=== PATIENT | male | born 1960 | race Caucasian/White ===

== ENCOUNTER 2019-04-18 14:53 | Emergency (ER) | payer SELFPAY ==
[2019-04-18] VITALS (61 sets, daily range): BP systolic 101–135; BP diastolic 51–86; PULSE 60–121; RESP 11–37; TEMP 37; O2SAT 89–97
--- NOTE | 2019-04-18 15:00 | DI.CT_ITS ---
EXAM: CT CHEST/ABD/PEL W CLINICAL HISTORY: vomiting, wretching, blood, diffuse abdominal pain TECHNIQUE: Post IV contrast. Without oral contrast. COMPARISON: No exams were available for comparison FINDINGS: Chest CT: Dependent changes are seen at the lung bases. No infiltrates, pleural or pericardial effu sions are seen. No masses or adenopathy are identified. Coronary artery calcifications and aortic c alcifications are seen. Abdomen and pelvic CT: The liver, spleen, adrenals and kidneys are as well as gallbladder are unremar kable. There is dilatation of the pancreatic duct. There are calcifications in the head of the panc reas. There is some atrophy of the tail of the pancreas. No focal mass is visible. No surrounding inflammatory changes are seen. No adenopathy is seen There are mildly dilated loops of jejunum in the left upper quadrant without definite transition poin t. The appendix appears normal. There is moderate to increased quantity of stool in the colon. Div erticulosis is noted of the descending and sigmoid colon. There is no evidence of diverticulitis. T he urinary bladder is markedly distended. The prostate is mildly enlarged. Bladder mass or bladder calculi are seen. The abdominal aorta and branch vessels show severe atherosclerotic changes. Degen erative changes are seen throughout the spine. No compression fractures are identified. There is a l ow-density collection with some peripheral enhancement seen in the right gluteus hailey muscle. Fin dings could represent an intramuscular abscess. It measures 5.5 x 2 cm. IMPRESSION: 1. Question of an area of fluid collection versus abscess in the right gluteus hailey muscle. 2. Dilatation of the pancreatic duct. No visible pancreatic mass. 3. Mild nonspecific dilatation of the proximal small bowel.
[2019-04-18] MEDS: Normal Saline 1,000 ML 1000 ML IV (15:16)
[2019-04-18 15:21] LABS: Abs Immature Grans 0.01 k/cumm (0.0-0.09); Absolute Basophil Count 0.04 k/cumm (0.0-0.2); Absolute Lymphocyte Count 2.51 k/cumm (1.2-3.4); Absolute Monocyte Count 0.52 k/cumm (0.11-0.7); Absolute Neutrophil Count 2.18 k/cumm (1.2-6.7); Basophils % 0.7; Eosinophils % 1.9; HCT 38.1 % (40.0-50.0); HGB 12.9 g/dL (13.5-17.5); Immature Grans % 0.2 %; Lymphocytes % 46.8; Mean Corp. HGB Concentration 33.9 g/dL (32.0-36.0); Mean Corpuscular Hemoglobin 31.9 pg (27.0-33.0); Mean Corpuscular Volume 94.3 fL (80-95); Mean Platelet Volume 8.8 fL (8.0-11.0); Monocytes % 9.7; Neutrophils % 40.7; Platelet Count 319 x1000/uL (130-400); RBC 4.04 m/cumm (4.50-6.00); RBC Distribution Width 14.6 % (11.8-14.1); White Blood Cell Count 5.36 k/cumm (4.4-10.8)
[2019-04-18] MEDS: Ondansetron 4 MG/2 ML VIAL IVP (15:26)
--- NOTE | 2019-04-18 15:28 | ED.GENADUL_ITS ---
Discharge Plan Disposition Patient Disposition: [facility] Condition: Stable Discharge Details Chief Complaint: GenMedical Clinical Impression: Acute on chronic pancreatitis, Abdominal distension, Vomiting, Abdominal pain Primary Care Provider: None,None ED Provider: Fidel Smith Medical Decision Making This is a 58-year-old male who is new to the area, who presents today with multiple complaints, chief among them 4 days of epigastric pain with vomiting and small speckles of blood, in conjunction with chest pain left-sided arm pain which is been present for 4 days and is unchanged. Not exertionally related. 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 Last drink was 3-1/2 hours ago. Patient does admit to occasional loose stool. Chest pain is described as a burning pressure-like sensation just below his xiphoid process. No tearing or ripping sensation. He pain radiates to his left arm. He states that the symptoms are notably dissimilar from when he had his previous myocardial infarctions. He denies any any numbness, tingling, weakness, melena, acholic stool, headache or vision changes. He denies any recent fall or trauma. He does admit to intermittent crack cocaine use. Last time of use was 3 days ago. No other complaints at this time. No other modifying factors. He states that he is not currently taking any medications at this time. He is otherwise a slightly poor/distracted historian. Physical exam shows diffuse abdominal tenderness primarily in the epigastric region. No bruising. EKG shows no evidence of STEMI. Lipase is normal, renal function stable, electrolytes unremarkable. White count unremarkable. Differential is broad but includes gallbladder pathology, early pancreatitis from chronic alcoholism, obstruction, less likely atypical cardiac etiology. We will rehydrate, monitor closely, get a CT scan of the abdomen pelvis and evaluate for unlikely cardiac etiology. 6 PM Patient now states that he does have history of pancreatic cancer in the past versus potential chronic pancreatitis. He also notes that he did have a stent placed in [place] or [place] 1 year ago, and then 6 months later had it removed. 8 PM Laboratory work-up is returned relatively unremarkable, no significant white count, or left shift. Electrolytes are normal. No significant anion gap. Calcium slightly low at 8.2, transaminases stable aside for slight elevation in AST at 53. Lipase upper limits of normal at 328. Urinalysis unremarkable. Ethyl alcohol 211. CT scans results demonstrate evidence of dilated pancreatic duct at 10 mm, uncertain of chronicity. There is also evidence of notable chronic pancreatitis, and the head of the pancreas is also notably lobulated and enlarged, concerning for pancreatic carcinoma, which the patient states that he now has a history of. However there is no evidence of metastases anywhere else, so new malignancy seems potentially less likely. CT also shows evidence of notable dilatation of the proximal jejunum and large amounts of grass in the transverse colon which could be a manifestation of acute pancreatitis versus potential mild ileus. Patient is still having notable difficulty tolerating p.o., however his vomiting has resolved with antiemetic medication. Because of the patient's chronic narcotic use his opioid sensitivity is notable, he has been requiring Dilaudid for pain control. With the patient signs and symptoms, we did contact the surgeon Dr. Ramirez discussed the case with her. She too is uncertain of the potential chronicity of the symptoms, however with lipase only at the upper limits of normal, in conjunction with relatively unremarkable tra nsaminases and bilirubin she feels that there is no indication for emergent stenting at this time. No evidence of an acute surgical emergency. With the patient's nausea, continued abdominal pain, I do feel that he would benefit from admission. Unfortunately we we have no current beds available. However local facilities are also unable to facilitate transfer including [facility] and [facility]. We did contact [facility] I discussed the case with Dr. Aguiar, he agrees with the assessment and plan. The patient will be transferred by [facility] for further management. Also of note patient's troponins are normal, signs and symptoms appear clinically inconsistent with ACS. His [place] score remains low at this time, vital signs have improved with his fluids. I see no evidence of significant withdrawal at this time. I have extensively reviewed the treatment plan with the patient. I have addressed all patient concerns at this time. I have also discussed the plan with the admitting physician and they agree with the current assessment and plan and have agreed to assume responsibility for the patient. All parties demonstrate verbal understanding and agreement with our assessment and plan at this time. At time of transfer the patient was reassessed and continued to demonstrate current medical stability. No signs of acute respiratory distress requiring intubation, hemodynamic instability requiring pressor support, or rapidly declining mental status. The patient is stable for transport. EKG 15: 10 Rate 107, machine interpreted as atrial flutter, I believe this is incorrect, sinus rhythm, no significant ST elevations or depressions, intervals unremarkable. No evidence of STEMI. No other abnormalities. FINDINGS: Lungs: Moderate amount of ground-glass opacity predominantly in the dependent lower lobes. Pleural space: Unremarkable. No pneumothorax. No pleural effusion. Heart: Heart is not enlarged and there is no pericardial effusion. Prominent calcification of the left anterior descending coronary artery as well as the left circumflex artery. 2. Moderately severe atherosclerosis including prominent coronary artery calcification. Mediastinum: Multiple calcified mediastinal lymph nodes predominantly in the right hilum and right side of the superior mediastinum. Aorta: Moderately severe diffuse atherosclerosis of the thoracic aorta without evidence of aneurysmal dilatation. Lymph nodes: Unremarkable. No enlarged lymph nodes. Bones/joints: Unremarkable. No acute fracture. Soft tissues: Unremarkable. Other findings: 3. Evidence of previous granulomatous disease. IMPRESSION: Moderate atelectasis and/or scarring at the lung bases. FINDINGS: Liver: Normal. No mass. Gallbladder and bile ducts: Normal. No calcified stones. No ductal dilation. Pancreas: There are multiple coarse calcifications in the inferior aspect of the head of the pancreas extending into the uncinate process. Pancreatic duct the is severely dilated at the junction of the head in the body measuring up to 10 mm in diameter. The duct tapers the towards the pale of the pancreas. There is no identifiable inflammation around the pancreas. The head of the pancreas is somewhat the lobulated and enlarged. Spleen: Normal. No splenomegaly. Adrenals: Normal. No mass. Kidneys and ureters: Normal. No hydronephrosis. Stomach and bowel: Stomach is moderately distended with a small air-fluid level. There is a moderate fecal burden throughout the colon. There is a prominent amount of gas in the transverse colon. No definite inflammation is seen around the colon. Proximal jejunum has several loops of fluid filled mildly dilated loops dilated to 4 cm. Or distal jejunum and ileum is of much smaller caliber. Transit is in July is not clearly defined. Appendix: No evidence of appendicitis. Intraperitoneal space: Unremarkable. No free air. No significant fluid collection. Vasculature: Severe diffuse atherosclerosis. Lymph nodes: Unremarkable. No enlarged lymph nodes. Bladder: The urinary bladder is severely distended the measures 13 x 11.9 x 8.3 cm corresponding to a volume of roughly 645 cubic cm. Reproductive: Prostate gland is mildly enlarged. Bones/joints: At L5-S1 there is a moderate disc bulge and mild facet hypertrophy moderately compressing the thecal sac and mildly narrowing both neural foramina worse on the right side. Soft tissues: Unremarkable. IMPRESSION: 1. No pancreatic stent is identified. The pancreatic duct is dilated to 10 mm. There is calcification consistent with chronic pancreatitis. The head of the pancreas is also lobulated somewhat enlarged and is probably a manifestation of the patient's the known pancreatic carcinoma. There is no evidence of metastatic disease to the liver. 2. Dilated the proximal jejunum and a large amount of gas in the transverse colon the could be a manifestation of acute pancreatitis although I do not see any inflammation around the pancreas to suggest that. Dictated and Authenticated by: Brett Strauss MD. Ordering:JACIEL Parra MD HPI General Date/Time Provider Initiated Documentation: 04/18/19 14:54 . HPI Narrative: This is a 58-year-old male who is new to the area, who presents today with multiple complaints, chief among them 4 days of epigastric pain with vomiting and small speckles of blood, in conjunction with chest pain left-sided arm pain which is been present for 4 days and is unchanged. Not exertionally related. 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 Last drink was 3-1/2 hours ago. Patient does admit to occasional loose stool. Chest pain is described as a burning pressure-like sensation just below his xiphoid process. No tearing or ripping sensation. He pain radiates to his left arm. He states that the symptoms are notably dissimilar from when he had his previous myocardial infarctions. He denies any any numbness, tingling, weakness, melena, acholic stool, headache or vision changes. He denies any recent fall or trauma. He does admit to intermittent crack cocaine use. Last time of use was 3 days ago. No other complaints at this time. No other modifying factors. He states that he is not currently taking any medications at this time. He is otherwise a slightly poor/distracted historian. Related Data Allergies Allergy/AdvReac Type Severity Reaction Status Date / Time Penicillins Allergy Unverified 04/18/19 15:16 General Stated Complaint: GenMedical DMITRI: 3 Review of Systems All systems reviewed & are unremarkable except as noted in HPI and below PFSH Social History Smoking/Tobacco Use Status: Current every day Alcohol Intake: current Alcohol Intake frequency: 3 or more drinks per day Drug use: Occasionally Substance use type: crack/cocaine Additional Social history: homeless Exam Narrative Exam Narrative: 1.Const: Well-nourished, Well-developed, appearing stated age 2.Eyes: PERRL, no conjunctival injection, and symmetrical lids. 3.ENT: Atraumatic external nose and ears. Moist MM. Neck: Symmetric, trachea midline, No thyromegaly. 4.CVS: +S1/S2, No murmurs or gallops. Peripheral pulses 2+ and equal in all extremities. Brisk capillary refill in all extremities. Radial pulses symmetric bilaterally. 5.RESP: Unlabored respiratory effort. Clear to auscultation bilaterally. No wheezes rales or rhonchi. No reproducible tenderness on palpation of the chest. 6.GI: Soft, mild abdominal distention, diffuse tenderness throughout, primarily in the epigastric region. Minimal hepatomegaly. No bruising around the umbilicus or flanks. No CVA tenderness. 7.MSK: Normocephalic/Atraumatic, Extremities w/o deformity or ttp No cyanosis or clubbing, Normal movement of all extremities 8.Skin: Warm, Dry. No rashes or lesions. 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 Sensation grossly intact, no focal neurologic deficits. 10.Psych: (AAO) x3. Appropriate mood and affect Course Vital Signs Vital signs: Vital Signs Temperature 37 C 04/18/19 14:56 Pulse 121 H 04/18/19 14:56 Respiratory Rate 20 04/18/19 14:56 Blood Pressure 135/86 04/18/19 14:56 Pulse Oximetry 96 04/18/19 14:56 Temperature 37 C 04/18/19 14:56 Temperature Source Temporal Artery Scan 04/18/19 14:56 Pulse 121 H 04/18/19 14:56 Respiratory Rate 20 04/18/19 14:56 Respiratory Effort Non-Labored 04/18/19 15:01 Blood Pressure 135/86 04/18/19 14:56 Blood Pressure Position Sitting 04/18/19 14:56 Pulse Oximetry 96 04/18/19 14:56 Oxygen Delivery Method Room Air 04/18/19 14:56 Oxygen Flow Rate 0 04/18/19 14:56 Lab/Test Results Lab/Test Results: Laboratory Tests Range/Units 04/18/19 15:15 WBC (4.4-10.8) k/cumm 5.36 RBC (4.50-6.00) m/cumm 4.04 L Hgb (13.5-17.5) g/dL 12.9 L Hct (40.0-50.0) % 38.1 L MCV (80-95) fL 94.3 MCH (27.0-33.0) pg 31.9 MCHC (32.0-36.0) g/dL 33.9 RDW (11.8-14.1) % 14.6 H Plt Count (130-400) x1000/uL 319 MPV (8.0-11.0) fL 8.8 Immature Gran % % 0.2 Neutrophils % 40.7 Lymphocytes % 46.8 Monocytes % 9.7 Eosinophils % 1.9 Basophils % 0.7 Absolute Neutrophils (1.2-6.7) k/cumm 2.18 Absolute Lymphocytes (1.2-3.4) k/cumm 2.51 Absolute Monocytes (0.11-0.7) k/cumm 0.52 Absolute Eosinophils (0.0-0.7) k/cumm 0.10 Absolute Basophils (0.0-0.2) k/cumm 0.04
[2019-04-18 15:34] LABS: ALT 43 U/L (16-63); AST 53 U/L (15-37); Albumin 3.7 g/dL (3.4-5.0); Alkaline Phosphatase 86 U/L (46-116); Anion Gap 11.3 mmol/L (3-11); BUN 16 mg/dL (7-18); Bilirubin, Total 0.2 mg/dL (0.2-1.0); CO2 23.7 mmol/L (21.0-32.0); CREATININE 0.97 mg/dL (0.70-1.30); Calcium 8.2 mg/dL (8.5-10.1); Chloride 105 mmol/L (98-107); ETHANOL BLOOD 211.4 mg/dL (<3); Glucose 125 mg/dL (74-106); Potassium 4.2 mmol/L (3.5-5.1); Sodium 140 mmol/L (136-145); Total Protein 7.5 g/dL (6.4-8.2)
[2019-04-18 15:41] LABS: Lipase 328 U/L (73-393)
[2019-04-18 15:42] LABS: Troponin I < 0.05 ng/Ml (<0.06)
[2019-04-18 15:43] LABS: PTT Activated 25.4 sec (21.0-31.4); Prothrombin Time 9.7 sec (9.3-11.0)
[2019-04-18] MEDS: Normal Saline - Diluent 50 ML VIAL IV (16:02)
[2019-04-18] MEDS: Omnipaque 350 MG/ML 100 ML BTL IJ (16:02)
[2019-04-18 16:04] LABS: Bilirubin Negative (Negative); Blood Negative (Negative); Clarity Clear (Clear); Glucose Negative (Negative); Ketones Negative (Negative); Leukocyte Esterase Negative (Negative); Nitrite Negative (Negative); Specific Gravity 1.015 (1.005-1.025); Urobilinogen 0.2 EU/dL (Up TO 0.2); pH 5.5 (5-8)
[2019-04-18 16:28] LABS: *AMPHETAMINES SCREEN URINE Negative (Negative); *BARBITURATES SCREEN URINE Negative (Negative); *BENZODIAZEPINES SCREEN URINE Negative (Negative); Cannabinoids THC POSITIVE (Negative); Cocaine Screen,Urine Negative (Negative); METHADONE URINE SCREEN Negative (Negative); OPIATES URINE SCREEN Negative (Negative)
[2019-04-18 16:30] LABS: Tricyclic Antidepressants Negative (Negative)
[2019-04-18] MEDS: HYDROmorphone 2 MG/ML VIAL 1 MG IVP ×3 (16:33→20:45)
--- NOTE | 2019-04-18 17:00 | DI.VRAD_ITS ---
PROCEDURE INFORMATION: Exam: CT Chest With Contrast Exam date and time: 04/18/2019 3:56 PM Age: 58 years old Clinical indication: Abdominal pain; Other: Diffuse; Other: Hematemesis; Patient HX: HX of pancreatic CA, HX of pancreatic stent. TECHNIQUE: Imaging protocol: Computed tomography of the chest with intravenous contrast. Radiation optimization: All CT scans at this facility use at least one of these dose optimization techniques: automated exposure control; mA and/or kV adjustment per patient size (includes targeted exams where dose is matched to clinical indication); or iterative reconstruction. Contrast material: OMNIPAQUE 350; Contrast volume: 100 ml; Contrast route: IV; COMPARISON: No relevant prior studies available. FINDINGS: Lungs: Moderate amount of ground-glass opacity predominantly in the dependent lower lobes. Pleural space: Unremarkable. No pneumothorax. No pleural effusion. Heart: Heart is not enlarged and there is no pericardial effusion. Prominent calcification of the left anterior descending coronary artery as well as the left circumflex artery. 2. Moderately severe atherosclerosis including prominent coronary artery calcification. Mediastinum: Multiple calcified mediastinal lymph nodes predominantly in the right hilum and right side of the superior mediastinum. Aorta: Moderately severe diffuse atherosclerosis of the thoracic aorta without evidence of aneurysmal dilatation. Lymph nodes: Unremarkable. No enlarged lymph nodes. Bones/joints: Unremarkable. No acute fracture. Soft tissues: Unremarkable. Other findings: 3. Evidence of previous granulomatous disease. IMPRESSION: Moderate atelectasis and/or scarring at the lung bases. PROCEDURE INFORMATION: Exam: CT Abdomen And Pelvis With Contrast Exam date and time: 04/18/2019 3:56 PM Age: 58 years old Clinical indication: Abdominal pain; Other: Diffuse; Other: Hematemesis; Patient HX: HX of pancreatic CA, HX of pancreatic stent. TECHNIQUE: Imaging protocol: Computed tomography of the abdomen and pelvis with intravenous contrast. Radiation optimization: All CT scans at this facility use at least one of these dose optimization techniques: automated exposure control; mA and/or kV adjustment per patient size (includes targeted exams where dose is matched to clinical indication); or iterative reconstruction. Contrast material: OMNIPAQUE 350; Contrast volume: 100 ml; Contrast route: IV; COMPARISON: No relevant prior studies available. FINDINGS: Liver: Normal. No mass. Gallbladder and bile ducts: Normal. No calcified stones. No ductal dilation. Pancreas: There are multiple coarse calcifications in the inferior aspect of the head of the pancreas extending into the uncinate process. Pancreatic duct the is severely dilated at the junction of the head in the body measuring up to 10 mm in diameter. The duct tapers the towards the pale of the pancreas. There is no identifiable inflammation around the pancreas. The head of the pancreas is somewhat the lobulated and enlarged. Spleen: Normal. No splenomegaly. Adrenals: Normal. No mass. Kidneys and ureters: Normal. No hydronephrosis. Stomach and bowel: Stomach is moderately distended with a small air-fluid level. There is a moderate fecal burden throughout the colon. There is a prominent amount of gas in the transverse colon. No definite inflammation is seen around the colon. Proximal jejunum has several loops of fluid filled mildly dilated loops dilated to 4 cm. Or distal jejunum and ileum is of much smaller caliber. Transit is in [place] is not clearly defined. Appendix: No evidence of appendicitis. Intraperitoneal space: Unremarkable. No free air. No significant fluid collection. Vasculature: Severe diffuse atherosclerosis. Lymph nodes: Unremarkable. No enlarged lymph nodes. Bladder: The urinary bladder is severely distended the measures 13 x 11.9 x 8.3 cm corresponding to a volume of roughly 645 cubic cm. Reproductive: Prostate gland is mildly enlarged. Bones/joints: At L5-S1 there is a moderate disc bulge and mild facet hypertrophy moderately compressing the thecal sac and mildly narrowing both neural foramina worse on the right side. Soft tissues: Unremarkable. IMPRESSION: 1. No pancreatic stent is identified. The pancreatic duct is dilated to 10 mm. There is calcification consistent with chronic pancreatitis. The head of the pancreas is also lobulated somewhat enlarged and is probably a manifestation of the patient's the known pancreatic carcinoma. There is no evidence of metastatic disease to the liver. 2. Dilated the proximal jejunum and a large amount of gas in the transverse colon the could be a manifestation of acute pancreatitis although I do not see any inflammation around the pancreas to suggest that. Dictated and Authenticated by: Brett Strauss MD. Ordering:JACIEL Parra MD
[2019-04-18 18:27] LABS: Troponin I < 0.05 ng/Ml (<0.06)
[2019-04-18] MEDS: Normal Saline 50 ML (20:46)
== END 2019-04-18 22:05 | disposition short-term general hospital (02) ==
PROVIDERS: Emergency Provider Student in an Organized Health Care Education/Training Program
DX: R14.0 Abdominal distension (gaseous) (principal); K85.90 Acute pancreatitis without necrosis or infection, unspecified; K86.1 Other chronic pancreatitis; R11.2 Nausea with vomiting, unspecified; F10.220 Alcohol dependence with intoxication, uncomplicated; Y90.7 Blood alcohol level of 200-239 mg/100 ml; F14.90 Cocaine use, unspecified, uncomplicated; C25.9 Malignant neoplasm of pancreas, unspecified
CPT/HCPCS: 36415; 74177; 80053; 80307; 83690; 93005; 96361; 96374; 96375; 96376; 99285; 71260; 80320; 81003; 84484; 85025; 85610; 85730; 93010; J2405; J3490

== ENCOUNTER 2019-04-22 18:31 | Emergency (ER) | payer SELFPAY ==
[2019-04-22 18:32] VITALS: BP 162/121; PULSE 98; TEMP 36.8; O2SAT 99
--- NOTE | 2019-04-22 18:44 | ED.GENADUL_ITS ---
Discharge Plan Disposition Patient Disposition: HOME Condition: Stable Discharge Details Chief Complaint: Abd Prob Clinical Impression: Chronic abdominal pain, History of alcohol abuse, Homelessness Primary Care Provider: None,None ED Provider: Emi Diane Home Meds and New Rx's Prescriptions: No Action No Known Home Meds RF: 0 Discharge Instructions Instructions: Chronic Pain (ED) Additional Instructions: You can go directly to the [facility]. Drink plenty of fluids and get plenty of rest. Alternate tylenol and motrin as needed and directed for pain. Follow-up with outpatient detoxification centers as given to you by the assistant women's rowing coach. You will receive a call from care management for follow-up with a primary care doctor. Return to the emergency department if you develop any worsening or new concerning symptoms. Discharge Data Discharge Physician: Emi Diane Medical Decision Making 1800 -- 58-year-old male with a history of alcohol abuse, pancreatitis, pancreatic cancer treated with pancreatic stent which had subsequently been removed, hypertension, hyperlipidemia and myocardial infarction presents with chronic sharp upper abdominal pain consistent with his pancreatitis for the past 3 weeks. He was seen here 4 days ago for the same complaint and transferred to [facility] due to lack of bed availability for pancreatitis. He states he was discharged yesterday. He is currently homeless and has been staying at a nursing home friend's house. EKG on arrival notes a rate of 88, sinus, no acute ST ischemic changes. He appears nontoxic. Demonstrating no signs of alcohol withdrawal. Lungs clear. He has diffuse abdominal tenderness but without rigidity, guarding or distention. Patient had a CT abdomen and pelvis 4 days ago which noted likely chronic pancreatitis with a normal lipase. He also had a questionable fluid collection versus abscess in the right gluteal hailey muscle. There was no evidence of cellulitis on exam today and he has no fever and normal white blood cell count. Do not see indication for repeat imaging today. Waiting to obtain records from [facility]. Patient states he would like to stay here for alcohol detox. Patient has been in the hospital for the past 4 days and had 1 beer this morning so he essentially has gone through detox. He is hemodynamically stable without tachycardia or hypertension. He has no evidence of tremors, shaking or diaphoresis. Patient is requesting narcotic pain medication for his pain and admission to the hospital for detox. Discussed with patient that we can obtain screening labs and if no acute findings, can likely discharge to nursing home with plan for information for outpatient management of alcohol abuse. 1900 -- Labs reviewed and unremarkable. Records obtained from [facility] note that patient was managed for ileus and demonstrated no signs of alcohol withdrawal at that time and was discharged on 04/20. Patient states he did not drink any alcohol yesterday and had 1 beer today. Patient has remained hemodynamically stable with no signs of withdrawal. Discussed with patient that I do not see an acute indication for admission. Discussed with care management who stated that patient can go to the [facility]. Also discussed with assistant women's rowing coach and they will meet with patient to discuss outpatient detoxification centers and rehab. Patient placed on care management list for follow-up for primary care doctor. Patient was advised to return here with any concerns. Medical Records Medical records reviewed: Yes I reviewed the patient's medical records. Lab Data Lab results reviewed: Yes I reviewed the patient's lab results. Labs: Laboratory Tests Range/Units 04/22/19 04/22/19 04/22/19 18:46 18:46 18:46 WBC (4.4-10.8) k/cumm 5.65 RBC (4.50-6.00) m/cumm 4.35 L Hgb (13.5-17.5) g/dL 14.0 Hct (40.0-50.0) % 40.7 MCV (80-95) fL 93.6 MCH (27.0-33.0) pg 32.2 MCHC (32.0-36.0) g/dL 34.4 RDW (11.8-14.1) % 14.6 H Plt Count (130-400) x1000/uL 282 MPV (8.0-11.0) fL 9.0 Immature Gran % % 0.2 Neutrophils % 45.8 Lymphocytes % 42.7 Monocytes % 9.4 Eosinophils % 1.4 Basophils % 0.5 Absolute Neutrophils (1.2-6.7) k/cumm 2.59 Absolute Lymphocytes (1.2-3.4) k/cumm 2.41 Absolute Monocytes (0.11-0.7) k/cumm 0.53 Absolute Eosinophils (0.0-0.7) k/cumm 0.08 Absolute Basophils (0.0-0.2) k/cumm 0.03 PT (9.3-11.0) sec INR (0.9-1.1) APTT (21.0-31.4) sec Sodium (136-145) mmol/L 143 Potassium (3.5-5.1) mmol/L 4.3 Chloride (98-107) mmol/L 105 Carbon Dioxide (21.0-32.0) mmol/L 25.4 Anion Gap (3-11) mmol/L 12.6 H BUN (7-18) mg/dL 12 Creatinine (0.70-1.30) mg/dL 0.79 Estimated GFR/1.73 m2 (mL/min/1.73m2) >= 60.00 Glucose (74-106) mg/dL 92 Calcium (8.5-10.1) mg/dL 8.5 Magnesium (1.8-2.4) mg/dL 2.4 Total Bilirubin (0.2-1.0) mg/dL 0.2 AST (15-37) U/L 43 H ALT (16-63) U/L 42 Alkaline Phosphatase (46-116) U/L 84 Troponin I (<0.06) ng/Ml < 0.05 Total Protein (6.4-8.2) g/dL 7.9 Albumin (3.4-5.0) g/dL 3.9 Lipase (73-393) U/L 261 Range/Units 04/22/19 04/22/19 18:46 21:45 WBC (4.4-10.8) k/cumm RBC (4.50-6.00) m/cumm Hgb (13.5-17.5) g/dL Hct (40.0-50.0) % MCV (80-95) fL MCH (27.0-33.0) pg MCHC (32.0-36.0) g/dL RDW (11.8-14.1) % Plt Count (130-400) x1000/uL MPV (8.0-11.0) fL Immature Gran % % Neutrophils % Lymphocytes % Monocytes % Eosinophils % Basophils % Absolute Neutrophils (1.2-6.7) k/cumm Absolute Lymphocytes (1.2-3.4) k/cumm Absolute Monocytes (0.11-0.7) k/cumm Absolute Eosinophils (0.0-0.7) k/cumm Absolute Basophils (0.0-0.2) k/cumm PT (9.3-11.0) sec 9.5 INR (0.9-1.1) 0.9 APTT (21.0-31.4) sec 24.5 Sodium (136-145) mmol/L Potassium (3.5-5.1) mmol/L Chloride (98-107) mmol/L Carbon Dioxide (21.0-32.0) mmol/L Anion Gap (3-11) mmol/L BUN (7-18) mg/dL Creatinine (0.70-1.30) mg/dL Estimated GFR/1.73 m2 (mL/min/1.73m2) Glucose (74-106) mg/dL Calcium (8.5-10.1) mg/dL Magnesium (1.8-2.4) mg/dL Total Bilirubin (0.2-1.0) mg/dL AST (15-37) U/L ALT (16-63) U/L Alkaline Phosphatase (46-116) U/L Troponin I (<0.06) ng/Ml Cancelled Total Protein (6.4-8.2) g/dL Albumin (3.4-5.0) g/dL Lipase (73-393) U/L ECG Data Attestation: I personally reviewed and interpreted this ECG (s) as follows: Interpretation: Rate of 88, sinus, no acute ST elevation or depression. AR 144. QTc 419. QRS 88. HPI General Mode of arrival: ambulatory . Date/Time Provider Initiated Documentation: 04/22/19 18:38 . Limitations to Documentation: no limitations . Information obtained by: patient . HPI Narrative: Patient is a 58-year-old male with a history of alcohol abuse, hypertension, hyperlipidemia, pancreatitis, pancreatic cancer, myocardial infarction presents with abdominal pain, worse in epigastrium for the past 3 weeks. Patient was seen here for the same complaint 4 days ago and diagnosed with acute on chronic pancreatitis and was transferred to [facility] due to lack of bed availability here. Patient states he does not recall what was done for him there but that he thinks he was discharged yesterday. Patient states he is homeless but stayed with a friend last night. He states he left the friend's house today and went to a local store and had the woman called the ambulance for his continued abdominal pain. He states he drank 1 beer today. He states he generally drinks 3-4 beers daily. He denies any drug use. He states his abdominal pain is constant, sharp, mainly localized in the epigastrium with radiation around to both sides of upper abdomen and down to suprapubic region around to right side of his back. He admits to nausea and dry heaving all day. Last bowel movement yesterday and normal without any bleeding. He does admit to also some radiation up to his chest along with heartburn and indigestion and shortness of breath that occurs with episodes of his pain. He denies any fever, urinary symptoms. Related Data Home Medications Medication Instructions Recorded Confirmed Unknown [No Known Home Meds] 04/22/19 04/22/19 Allergies Allergy/AdvReac Type Severity Reaction Status Date / Time Penicillins Allergy Unverified 04/22/19 18:36 General Stated Complaint: Abd Prob DMITRI: 3 Review of Systems All systems reviewed & are unremarkable except as noted in HPI and below Constitutional Constitutional: Reports as per HPI, Denies chills and Denies fever(s) Eyes Eyes: Denies blurry vision ENT Ears, Nose, Mouth, and Throat: Denies dizziness, Denies sore throat and Denies throat swelling Cardiovascular Cardiovascular: Denies chest pain and Denies dyspnea Respiratory Respiratory: Denies cough and Denies dyspnea Gastrointestinal Gastrointestinal: Reports abdominal pain, Denies diarrhea and Reports nausea (and dry heaving) Genitourinary Genitourinary: Denies hematuria and Denies dysuria Musculoskeletal Musculoskeletal: Denies back pain and Denies numbness Integumentary/Breasts Skin/Breast: Denies lesions and Denies rash Neurologic Neurologic: Denies dizziness, Denies focal weakness and Denies numbness Allergic/Immunologic Allergic/Immunologic: Denies throat swelling [facility] Medical History HTN (hypertension) (Chronic) Hx of hyperlipidemia (Acute) Myocardial infarction (Chronic) x 2 Pancreatic cancer (Acute) with h/o pancreatic stent Pancreatitis (Chronic) Social History Smoking/Tobacco Use Status: Current every day Alcohol Intake: current Alcohol Intake frequency: 3 or more drinks per day Drug use: Occasionally Substance use type: crack/cocaine Additional Social history: homeless Exam Const General: cooperative, no acute distress, disheveled and ill appearing chronically Orientation: alert, awake and oriented x3 HENMT Head: normal to inspection Face and sinus: normal facial exam Eyes General: appearance normal, both eyes and all related structures EOM: EOM intact bilaterally Neck Neck: normal visual inspection and No submandibular swelling Lymphatic: no lymphadenopathy noted Chest Chest: normal inspection of the chest and no tenderness Resp Effort & Inspection: normal respiratory effort and able to speak in complete sentences Auscultation: clear to auscultation bilaterally Cardio Rate: regular rate Rhythm: regular rhythm GI Inspection: normal to inspection Palpation: soft, not firm, not rigid and tender in the epigastrum, in the LLQ, in the RLQ, in the LUQ, in the RUQ and suprapubicly Auscultation: hypoactive bowel sounds Skin General skin exam: no rashes or lesions noted Neuro General: alert, awake and oriented x3 Cognition: normal cognition Speech: speech normal Motor: muscle tone normal throughout Sensory Exam: no sensory deficits noted Extrem General: normal to inspection, full ROM, normal capillary refill, no calf tenderness bilaterally and no edema Psych Appearance: grossly normal Mental Status: mental status grossly normal Speech and Movement: speech and movement normal Affect: normal affect Course Vital Signs Vital signs: Vital Signs Temperature 98.2 F 04/22/19 18:32 Pulse 98 H 04/22/19 18:32 Blood Pressure 162/121 H 04/22/19 18:32 Pulse Oximetry 99 04/22/19 18:32 Temperature 98.2 F 04/22/19 18:32 Temperature Source Skin 04/22/19 18:32 Pulse 98 H 04/22/19 18:32 Respiratory Effort 04/22/19 18:36 Blood Pressure 162/121 H 04/22/19 18:32 Blood Pressure Position Supine 04/22/19 18:32 Pulse Oximetry 99 04/22/19 18:32 Oxygen Delivery Method Room Air 04/22/19 18:32 Oxygen Flow Rate 0 04/22/19 18:32 Pain Level 10 04/22/19 18:32
[2019-04-22 18:54] LABS: Abs Immature Grans 0.01 k/cumm (0.0-0.09); Absolute Basophil Count 0.03 k/cumm (0.0-0.2); Absolute Eosinophil Count 0.08 k/cumm (0.0-0.7); Absolute Lymphocyte Count 2.41 k/cumm (1.2-3.4); Absolute Monocyte Count 0.53 k/cumm (0.11-0.7); Absolute Neutrophil Count 2.59 k/cumm (1.2-6.7); Basophils % 0.5; Eosinophils % 1.4; HCT 40.7 % (40.0-50.0); Immature Grans % 0.2 %; Lymphocytes % 42.7; Mean Corp. HGB Concentration 34.4 g/dL (32.0-36.0); Mean Corpuscular Hemoglobin 32.2 pg (27.0-33.0); Mean Corpuscular Volume 93.6 fL (80-95); Monocytes % 9.4; Neutrophils % 45.8; Platelet Count 282 x1000/uL (130-400); RBC 4.35 m/cumm (4.50-6.00); RBC Distribution Width 14.6 % (11.8-14.1); White Blood Cell Count 5.65 k/cumm (4.4-10.8)
[2019-04-22 19:11] LABS: ALT 42 U/L (16-63); AST 43 U/L (15-37); Albumin 3.9 g/dL (3.4-5.0); Alkaline Phosphatase 84 U/L (46-116); Anion Gap 12.6 mmol/L (3-11); BUN 12 mg/dL (7-18); Bilirubin, Total 0.2 mg/dL (0.2-1.0); CO2 25.4 mmol/L (21.0-32.0); CREATININE 0.79 mg/dL (0.70-1.30); Calcium 8.5 mg/dL (8.5-10.1); Chloride 105 mmol/L (98-107); Glucose 92 mg/dL (74-106); Lipase 261 U/L (73-393); Potassium 4.3 mmol/L (3.5-5.1); Sodium 143 mmol/L (136-145); Total Protein 7.9 g/dL (6.4-8.2)
[2019-04-22 19:16] LABS: Troponin I < 0.05 ng/Ml (<0.06)
[2019-04-22 19:21] LABS: Magnesium 2.4 mg/dL (1.8-2.4)
[2019-04-22] MEDS: Ketorolac 30 MG/ML VIAL IVP (19:23)
[2019-04-22] MEDS: FAMOTIDINE 20 MG/50 ML BAG 200 MG IVPB (19:23)
[2019-04-22] MEDS: Normal Saline 1,000 ML 1000 ML IV (19:24)
[2019-04-22 19:26] LABS: INR 0.9 (0.9-1.1); PTT Activated 24.5 sec (21.0-31.4); Prothrombin Time 9.5 sec (9.3-11.0)
[2019-04-22 19:30] VITALS: BP 125/79; PULSE 79; RESP 16; TEMP 36.6; O2SAT 98
[2019-04-22 20:23] VITALS: BP 113/61; PULSE 90; RESP 18; O2SAT 97
== END 2019-04-22 20:45 | disposition home or self-care (01) ==
PROVIDERS: Emergency Provider Physician Assistant
DX: R10.13 Epigastric pain (principal); G89.29 Other chronic pain; Z91.419 Personal history of unspecified adult abuse; C25.9 Malignant neoplasm of pancreas, unspecified; I10 Essential (primary) hypertension; Z59.0 Homelessness
CPT/HCPCS: 80053; 83690; 93005; 96361; 96365; 96375; 99284; 83735; 84484; 85025; 85610; 85730; 93010; J1885

== ENCOUNTER 2019-04-23 06:51 | Emergency (ER) | payer MEDICAID, SELFPAY ==
[2019-04-23 06:57] VITALS: BP 153/97; PULSE 69; RESP 28; TEMP 36.1; O2SAT 92
--- NOTE | 2019-04-23 07:03 | W.ED.GENAD ---
Discharge Plan Disposition Patient Disposition: HOME Condition: Stable Discharge Details Chief Complaint: Abd Prob Clinical Impression: Chronic abdominal pain Primary Care Provider: None,None ED Provider: Chan Manley Home Meds and New Rx's Prescriptions: No Action No Known Home Meds RF: 0 Discharge Instructions Instructions: Chronic Pain (ED) Additional Instructions: Care management has arranged for transport to your 12 noon meeting with the pipe recovery specialist. Please follow-up with [facility] tomorrow as discussed with care management. Please follow-up closely with your new primary care provider. If you notice any worsening of your symptoms, or any new symptoms such as vomiting, diarrhea, fever, chills, shortness of breath, chest pain, numbness, weakness, or fainting , please return immediately to the emergency department for reevaluation. Please follow up with your primary care provider as soon as possible for reassessment and reevaluation. As always, it was a pleasure participating in your medical care today. Medical Decision Making <Fidel Smith, - Last Filed: 04/23/19 07:28> Patient is a 58-year-old male with a history of alcohol abuse, hypertension, hyperlipidemia, pancreatitis, pancreatic cancer, myocardial infarction has had previous pancreatic stents, with subsequent removal, who is been currently moving around between [place], [place], [place] most recently and now seen transferring [place]. He is currently homeless. He was seen and assessed on 04/18/2019, at that time he was seen by myself, CT scan of the abdomen was performed which showed no evidence of significant acute process or life-threatening etiology at that time, he did have evidence of chronic pancreatitis. He was eventually transferred to [place] secondary to bed placement issues here. At that time he was admitted for his chronic pancreatitis and management. He was recently discharged, he represented to the ED last night, was seen by my colleague where he had a repeat exam, laboratory work-up which showed no acute changes or abnormality. At that time he was continuing to complain of his chronic epigastric pain, did request narcotic prescriptions. These were not filled. He was referred to care management for establishment with a PCP, and recommended [facility] for placement. Patient refused to wait for the pipe recovery specialist at that time, and walked down to the gas station to get cigarettes. However he was intercepted by the pipe recovery specialist on the road, she did bring him to the [facility] assisted. He presents again this morning, requesting refill for his chronic narcotic medications. He states that when he was in [place] he used to get regular prescriptions for oxycodone, and he states that he would like this prescription again. Patient denies any other new complaints. He has been eating and drinking. He denies any recent alcohol intake except for yesterday. He denies any concerning red flags of hematemesis, vomiting or diarrhea. Physical exam today demonstrates no signs of concerning change for his abdominal exam, no evidence of an acute surgical abdomen. Patient demonstrates no tachycardia or signs of severe distress. At this time I had a long discussion with the patient regarding the role of the emergency department in regards to chronic narcotic prescriptions and refills. I discussed with the patient their recurrent pain issues. Today they have been evaluated in the emergency department for pain-related issues. I emphasized that my training was in the treatment of acute pain, that their physical exam here is quite reassuring, and that definitive treatment of chronic pain is not the role of the emergency department. I compassionately explained that I felt providing opiate medications from the emergency department was counterproductive in that this may cause or exacerbate tolerance, acute overdose, physiological or psychological dependence, or withdrawal. We discussed that opiate use in the management of chronic pain is best managed by a single practitioner, such as a primary care provider or a pain specialist. We discussed adjunctive therapies such as heat, ice, and exercise, as well as non-opiate medications such as acetaminophen, NSAIDs, antidepressants, gabapentin, and pregabalin. I reiterated that the most effective management of their chronic pain involves a multimodal approach coordinated by their primary care provider and often includes physical therapy, cognitive behavioral therapy, and referrals to practitioners such as anesthesiologists trained in chronic pain management. We will involve our manager rn case in the current scenario for PCP referral and pain clinic referral. Case will be signed out to my colleague Dr. Chan Manley for final disposition after case management evaluation. <Chan Manley MD - Last Filed: 04/23/19 08:37> Received signout from Dr. Smith. Please see his note regarding details of the history, recent evaluations, today's presentation, plan of care. Patient was seen by hospital respiratory care specialist, he ate breakfast, transport was arranged for him to attend his 12 noon meeting with pipe recovery specialist, and additionally the patient was given referrals for tomorrow to both [facility] and [facility] services, as well as the by schedule. Stable and improved, appropriate to discharge at this time. HPI <Fidel Smith, - Last Filed: 04/23/19 07:28> General Date/Time Provider Initiated Documentation: 04/23/19 07:00. HPI Narrative: Patient is a 58-year-old male with a history of alcohol abuse, hypertension, hyperlipidemia, pancreatitis, pancreatic cancer, myocardial infarction has had previous pancreatic stents, with subsequent removal, who is been currently moving around between [place], [place], [place] most recently and now seen transferring [place]. He is currently homeless. He was seen and assessed on 04/18/2019, at that time he was seen by myself, CT scan of the abdomen was performed which showed no evidence of significant acute process or life-threatening etiology at that time, he did have evidence of chronic pancreatitis. He was eventually transferred to [place] secondary to bed placement issues here. At that time he was admitted for his chronic pancreatitis and management. He was recently discharged, he represented to the ED last night, was seen by my colleague where he had a repeat exam, laboratory work-up which showed no acute changes or abnormality. At that time he was continuing to complain of his chronic epigastric pain, did request narcotic prescriptions. These were not filled. He was referred to care management for establishment with a PCP, and recommended [facility] for placement. Patient refused to wait for the pipe recovery specialist at that time, and walked down to the gas station to get cigarettes. However he was intercepted by the pipe recovery specialist on the road, she did bring him to the [facility]. He presents again this morning, requesting refill for his chronic narcotic medications. He states that when he was in [place] he used to get regular prescriptions for oxycodone, and he states that he would like this prescription again. Patient denies any other new complaints. He has been eating and drinking. He denies any recent alcohol intake except for yesterday. He denies any vomiting or diarrhea, chest pain, shortness of breath, numbness tingling or weakness. He denies any hematemesis, hematochezia melena or acholic stool. No other complaints at this time. Related Data Home Medications Medication Instructions Recorded Confirmed Unknown [No Known Home Meds] 04/22/19 04/23/19 Allergies Allergy/AdvReac Type Severity Reaction Status Date / Time Penicillins Allergy Unverified 04/23/19 07:00 General Stated Complaint: Abd Prob DMITRI: 4 Review of Systems <Fidel Covarrubiasjosi - Last Filed: 04/23/19 07:28> All systems reviewed & are unremarkable except as noted in HPI and below PFSH <Fidel Jian DO Luis - Last Filed: 04/23/19 07:28> Social History Smoking/Tobacco Use Status: Current every day Alcohol Intake: current Alcohol Intake frequency: 3 or more drinks per day Drug use: Occasionally Substance use type: crack/cocaine Additional Social history: homeless Exam <Fidel Jian DO Luis - Last Filed: 04/23/19 07:28> Narrative Exam Narrative: 1.Const: Well-nourished, Well-developed, appearing stated age 2.Eyes: PERRL, no conjunctival injection, and symmetrical lids. 3.ENT: Atraumatic external nose and ears. Moist MM. Neck: Symmetric, trachea midline, No thyromegaly. 4.CVS: +S1/S2, No murmurs or gallops. Peripheral pulses 2+ and equal in all extremities. Brisk capillary refill in all extremities. 5.RESP: Unlabored respiratory effort. Clear to auscultation bilaterally. No wheezes rales or rhonchi 6.GI: Soft, Nondistended, No hepatosplenomegaly. No guarding or rebound. No signs of an acute surgical abdomen. Mild epigastric tenderness on palpation. 7.MSK: Normocephalic/Atraumatic, Extremities w/o deformity or ttp No cyanosis or clubbing, Normal movement of all extremities 8.Skin: Warm, Dry. No rashes or lesions. 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 Sensation grossly intact, no focal neurologic deficits. 10.Psych: (AAO) x3. Appropriate mood and affect Course <Fidel Jian DO Luis - Last Filed: 04/23/19 07:28> Vital Signs Vital signs: Vital Signs Temperature 36.1 C L 04/23/19 06:57 Pulse 69 04/23/19 06:57 Respiratory Rate 28 H 04/23/19 06:57 Blood Pressure 153/97 H 04/23/19 06:57 Pulse Oximetry 92 L 04/23/19 06:57 Temperature 36.1 C L 04/23/19 06:57 Temperature Source Skin 04/23/19 06:57 Pulse 69 04/23/19 06:57 Respiratory Rate 28 H 04/23/19 06:57 Respiratory Effort Non-Labored 04/23/19 07:01 Blood Pressure 153/97 H 04/23/19 06:57 Pulse Oximetry 92 L 04/23/19 06:57 Pain Level 10 04/23/19 06:57 Sign Out <Fidel Smith DO - Last Filed: 04/23/19 07:28> Sign Out Data: Sign Out Comment: Patient is here today specifically requesting refills for his chronic oxycodone prescriptions. Pending evaluation by case management and PCP referral. Last updated by Fidel Smith DO at 04/23/19 07:16
[2019-04-23] MEDS: Ketorolac 30 MG/ML VIAL IM (07:40)
[2019-04-23] MEDS: Lidocaine 5% Patch 1 PATCH TP (07:40)
[2019-04-23 10:16] VITALS: BP 153/97; PULSE 69; RESP 28; TEMP 36.1; O2SAT 92
== END 2019-04-23 10:20 | disposition home or self-care (01) ==
PROVIDERS: Emergency Provider Emergency Medicine
DX: R10.13 Epigastric pain (principal); G89.29 Other chronic pain; K86.1 Other chronic pancreatitis; Z59.0 Homelessness; F10.11 Alcohol abuse, in remission
CPT/HCPCS: 96372; 99284; 99283; J1885

== ENCOUNTER 2019-04-23 17:01 | Emergency (ER) | payer MEDICAID, SELFPAY ==
[2019-04-23 17:01] VITALS: BP 150/92; PULSE 104; RESP 24; TEMP 37.2; O2SAT 96
--- NOTE | 2019-04-23 17:52 | ED.GENADUL_ITS ---
Discharge Plan Disposition Patient Disposition: HOME Discharge Details Chief Complaint: OD/Poison Clinical Impression: Alcohol intoxication, Cocaine use Primary Care Provider: None,None ED Provider: [facility] Home Meds and New Rx's Prescriptions: New thiamine HCl (vitamin B1) 100 mg tablet 100 mg PO DAILY Qty: 30 RF: 2 Discharge Instructions Instructions: Cocaine Abuse (ED), Alcohol Intoxication (ED) Additional Instructions: Please stop abusing alcohol and cocaine. Please contact your primary care physician to arrange follow-up. Call tomorrow. Please follow-up with [facility]. Return to the ER for any worsening or new concerning symptoms. Referrals: [facility] [Outside] Discharge Data Discharge Date/Time-TO BE ENTERED AT DEPARTURE: 04/23/19 22:45 Medical Decision Making 58-year-old male here with altered mental status after consuming heavy amount of vodka and smoking cocaine earlier today. Patient has diffuse pain including chest pain and abdominal pain. He has chronic abdominal pain secondary to his pancreatic cancer and had a significant negative work-up here in the ED recently. No signs of acute traumatic injury. Screening ECG was reviewed and interpreted by me: Sinus rhythm 76 bpm, normal axis, no STEMI, nondiagnostic. Initial troponin and delta troponin at 3 hours normal and unchanged. Labs were reviewed and alcohol level is elevated at 349. Patient did have mild anion gap acidosis. He was given IV fluid bolus. Patient also given thiamine 100 mg IV. Patient's urine drug screen was positive for cocaine and THC. Patient reassessed: No signs of sympathomimetic toxidrome. Patient remains clinically intoxicated. No other acute medical condition identified. Plan will be to discharge to public inebriation holding area to monitor for clinical sobriety. Patient was encouraged to follow-up with his primary care physician. Discharge was arranged by crisis screener while I was performing a procedure. Patient did not receive discharge instructions. Discharge instructions were completed and faxed to correctional holding facility. Prescription for thiamine was called to closest pharmacy to correctional facility. HPI General Mode of arrival: EMS . Date/Time Provider Initiated Documentation: 04/23/19 17:30 . Limitations to Documentation: altered mental status . Information obtained by: patient . HPI Narrative: 58-year-old male with known alcohol abuse, homelessness, chronic pancreatitis, pancreatic cancer, here with altered mental status. Patient arrives via EMS who responded to [employer] for concerned that patient was intermittently passing out while seated at a table in the store. Patient was here earlier today, had a medical screening exam and was discharged with outpatient resources. Unfortunately after discharge he has been consuming heavy amounts of vodka and beer and also smoked crack cocaine today. Patient states that he has pain everywhere. Related Data Home Medications Medication Instructions Recorded Confirmed thiamine HCl (vitamin B1) 100 mg PO DAILY #30 tab 04/23/19 Previous Rx's Medication Instructions Recorded thiamine HCl (vitamin B1) 100 mg PO DAILY #30 tab 04/23/19 Allergies Allergy/AdvReac Type Severity Reaction Status Date / Time Penicillins Allergy Unverified 04/23/19 17:05 General Stated Complaint: OD/Poison DMITRI: 4 Review of Systems Narrative: Review of systems is unreliable secondary to altered mental status [facility] Medical History HTN (hypertension) (Chronic) Hx of hyperlipidemia (Acute) Myocardial infarction (Chronic) x 2 Pancreatic cancer (Acute) with h/o pancreatic stent Pancreatitis (Chronic) Social History Smoking/Tobacco Use Status: Current every day Alcohol Intake: current Alcohol Intake frequency: 3 or more drinks per day Alcohol type: hard liquor Drug use: Daily Substance use type: crack/cocaine Additional Social history: homeless Exam Const General: cooperative and no acute distress HENMT Head: atraumatic Mouth: moist mucous membranes Eyes Conjunctivae: normal conjunctivae Sclera: normal sclerae Neck Neck: trachea midline and supple Resp Auscultation: clear to auscultation bilaterally, no rales, no rhonchi and no wheezes Cardio Jugular venous pressure: no JVD Rate: regular rate and not tachycardic Rhythm: regular rhythm GI Palpation: soft, not firm, no guarding, no masses and not rigid Skin General skin exam: no rashes or lesions noted Neuro General: alert, awake, oriented x3 and tone normal Extrem General: no edema Psych Appearance: disheveled Course Vital Signs Vital signs: Vital Signs Temperature 37.2 C 04/23/19 17: Pulse 104 H 04/23/19 17:01 Respiratory Rate 24 04/23/19 17:01 Blood Pressure 150/92 H 04/23/19 17:01 Pulse Oximetry 96 04/23/19 17:01 Temperature 37.2 C 04/23/19 17:01 Temperature Source Temporal Artery Scan 04/23/19 17:01 Pulse 104 H 04/23/19 17:01 Respiratory Rate 24 04/23/19 17:01 Respiratory Effort Non-Labored 04/23/19 17:05 Blood Pressure 150/92 H 04/23/19 17:01 Pulse Oximetry 96 04/23/19 17:01 Oxygen Delivery Method Room Air 04/23/19 17:01 Oxygen Flow Rate 0 04/23/19 17:01 Pain Level 0 04/23/19 17:01
[2019-04-23] MEDS: Normal Saline 500 ML IV (18:00)
[2019-04-23 18:12] LABS: Abs Immature Grans 0.01 k/cumm (0.0-0.09); Absolute Basophil Count 0.04 k/cumm (0.0-0.2); Absolute Lymphocyte Count 2.54 k/cumm (1.2-3.4); Absolute Monocyte Count 0.45 k/cumm (0.11-0.7); Absolute Neutrophil Count 2.07 k/cumm (1.2-6.7); Basophils % 0.8; Eosinophils % 1.9; HCT 38.5 % (40.0-50.0); HGB 12.9 g/dL (13.5-17.5); Immature Grans % 0.2 %; Lymphocytes % 48.8; Mean Corp. HGB Concentration 33.5 g/dL (32.0-36.0); Mean Corpuscular Hemoglobin 31.7 pg (27.0-33.0); Mean Corpuscular Volume 94.6 fL (80-95); Mean Platelet Volume 9.1 fL (8.0-11.0); Monocytes % 8.6; Neutrophils % 39.7; Platelet Count 266 x1000/uL (130-400); RBC 4.07 m/cumm (4.50-6.00); RBC Distribution Width 14.5 % (11.8-14.1); White Blood Cell Count 5.21 k/cumm (4.4-10.8)
[2019-04-23 18:20] LABS: Bilirubin Negative (Negative); Blood Negative (Negative); Clarity Clear (Clear); Glucose Negative (Negative); Ketones Negative (Negative); Leukocyte Esterase Trace (Negative); Nitrite Negative (Negative); Specific Gravity 1.015 (1.005-1.025); Urobilinogen 0.2 EU/dL (Up TO 0.2)
[2019-04-23 18:25] LABS: Bacteria Many HPF (Negative); C & S Indicated? Yes; Casts Negative LPF (Negative); Crystals Moderate Amorphous HPF (Negative); Epithelial Cells Negative HPF (Negative); Mucus Negative (Negative); Other Cells Negative (Negative); RBC Negative HPF (0-2); WBC 0-2 HPF (0-5)
[2019-04-23 18:28] LABS: *AMPHETAMINES SCREEN URINE Negative (Negative); *BARBITURATES SCREEN URINE Negative (Negative); *BENZODIAZEPINES SCREEN URINE Negative (Negative); Cannabinoids THC POSITIVE (Negative); Cocaine Screen,Urine POSITIVE (Negative); METHADONE URINE SCREEN Negative (Negative); OPIATES URINE SCREEN Negative (Negative)
[2019-04-23 18:28] LABS: ALT 36 U/L (16-63); AST 40 U/L (15-37); Albumin 3.5 g/dL (3.4-5.0); Alkaline Phosphatase 80 U/L (46-116); BUN 17 mg/dL (7-18); Bilirubin, Total 0.2 mg/dL (0.2-1.0); CREATININE 0.95 mg/dL (0.70-1.30); Calcium 8.1 mg/dL (8.5-10.1); Chloride 109 mmol/L (98-107); Glucose 91 mg/dL (74-106); Potassium 3.7 mmol/L (3.5-5.1); Sodium 145 mmol/L (136-145); Total Protein 6.9 g/dL (6.4-8.2)
[2019-04-23 18:34] LABS: Troponin I < 0.05 ng/Ml (<0.06)
[2019-04-23 18:35] LABS: Tricyclic Antidepressants Negative (Negative)
[2019-04-23 18:35] LABS: ETHANOL BLOOD 349.6 mg/dL (<3)
--- NOTE | 2019-04-23 19:16 | NUR.NOTE ---
Nursing Note: Pt awake and cooperative at this time. Asked for something to eat. [place] and milk provided per approval.
[2019-04-23] MEDS: THIAMINE 100 MG in Normal Saline 100 ML 200 MG IVPB (19:27)
[2019-04-23 21:04] LABS: Troponin I < 0.05 ng/Ml (<0.06)
--- NOTE | 2019-04-23 21:04 | NUR.NOTE ---
Nursing Note: Pt refused to leave sat monitor and BP cuff on. States I don't need that shit on! youth nutritional monitor on, Pt shows NSR.
--- NOTE | 2019-04-23 21:47 | NUR.NOTE ---
Nursing Note: Waiting for Mental Health to eval patient. Pt continues to refuse blood pressure and sat monitor. campus monitor in place.
[2019-04-23 22:50] VITALS: PULSE 53; RESP 16; O2SAT 96
== END 2019-04-23 22:45 | disposition home or self-care (01) ==
LOC: ER 17:23
PROVIDERS: Emergency Provider Student in an Organized Health Care Education/Training Program
DX: F10.129 Alcohol abuse with intoxication, unspecified (principal); F14.90 Cocaine use, unspecified, uncomplicated; Y90.8 Blood alcohol level of 240 mg/100 ml or more; R79.9 Abnormal finding of blood chemistry, unspecified; C25.9 Malignant neoplasm of pancreas, unspecified; Z59.0 Homelessness; I10 Essential (primary) hypertension
CPT/HCPCS: 36416; 80053; 80307; 82962; 87077; 93005; 96361; 96365; 99284; 80320; 81003; 81015; 84484; 85025; 87086; 93010

== ENCOUNTER 2019-04-24 12:03 | Emergency (ER) | payer MEDICAID, SELFPAY ==
[2019-04-24 12:09] VITALS: BP 115/64; PULSE 109; RESP 18; TEMP 36.8; O2SAT 95
--- NOTE | 2019-04-24 13:04 | NUR.NOTE ---
pt provided with lunch tray Nursing Note:
--- NOTE | 2019-04-24 13:08 | W.ED.GENAD ---
Discharge Plan Disposition Patient Disposition: HOME Condition: Stable Discharge Details Chief Complaint: ETOHWithdr Clinical Impression: Encounter for medical screening examination Primary Care Provider: None,None ED Provider: Elias Serna Discharge Instructions Additional Instructions: At this time you have no concerns or complaints and has been fed lunch. It appears as though your insurance has lapsed and therefore makes placement to detox more difficult. At this time we discussed going directly [facility] the [facility] to [facility] to help [facility] care and fill out insurance forms. Please watch for new or worsening symptoms and return to the ER for any concerns Medical Decision Making Patient presents to the ER requesting a medical screening examinations that he may go to detox. He has no acute medical concerns at this time. Will reach out to our care management team to help expedite admission to the detox facility. We will see if his recent laboratory values over the weekend are sufficient for medical screening or if we need to redraw him today. He appears well, nontoxic. Examination is unremarkable. Care management contacted the [facility] facility, they do not actively have a bed for him. They report that he does not have insurance and therefore be a self-pay. Patient is unable to pay for a stay at the detox facility. Our care management team look into his insurance situation and it appears as though his insurance lapsed in September, he does not currently have insurance. Discussed this with patient and his instructional technology coach. They understand this and have no additional questions or concerns. Patient is now requesting discharge and plans to go [facility] to [facility] to help expedite his outpatient insurance and care. Medical Records Medical records reviewed: Yes I reviewed the patient's medical records. HPI General Mode of arrival: ambulatory. Date/Time Provider Initiated Documentation: 04/24/19 12:09. Limitations to Documentation: no limitations. Information obtained by: patient. HPI Narrative: Patient presents to the ER with [employer] instructional technology coach requesting detox to a [facility]. Patient reports that his last drink of alcohol was around 9:00 this morning, he is already contacted the facility and he reports they had a bed. He has a history of abdominal pain, alcohol abuse, homelessness, cocaine use, pancreatitis. He currently has no acute concerns or complaints. He has had multiple visits to the ER over the past few days and even had laboratory values drawn. We will contact the facility to see if those laboratory values will be sufficient for a medical screening exam as he is currently asymptomatic. He is requesting lunch. Related Data Allergies Allergy/AdvReac Type Severity Reaction Status Date / Time Penicillins Allergy Unverified 04/24/19 12:14 General Stated Complaint: ETOHWithdr DMITRI: 3 Review of Systems Constitutional Constitutional: Denies fever(s) and Denies headache(s) Eyes Eyes: Denies change in vision ENT Ears, Nose, Mouth, and Throat: Denies headache(s) Cardiovascular Cardiovascular: Denies chest pain and Denies dyspnea Respiratory Respiratory: Denies cough and Denies dyspnea Gastrointestinal Gastrointestinal: Denies abdominal pain and Denies vomiting Musculoskeletal Musculoskeletal: Denies myalgias Integumentary/Breasts Skin/Breast: Denies rash Neurologic Neurologic: Denies headache(s) [facility] Medical History HTN (hypertension) (Chronic) Hx of hyperlipidemia (Acute) Myocardial infarction (Chronic) x 2 Pancreatic cancer (Acute) with h/o pancreatic stent Pancreatitis (Chronic) Social History Smoking/Tobacco Use Status: Current every day Alcohol Intake: current Alcohol Intake frequency: 3 or more drinks per day Alcohol type: hard liquor Drug use: Never Substance use type: crack/cocaine Details: last crack cocaine--1 month ago----last ETOH at 0930 today Additional Social history: homeless Exam Const General: cooperative, healthy appearing, comfortable and no acute distress Orientation: alert and awake HENMT Head: normal to inspection, normocephalic and atraumatic Mouth: moist mucous membranes Eyes Conjunctivae: conjunctivae normal Neck Neck: normal visual inspection, trachea midline and supple Resp Effort & Inspection: normal respiratory effort and able to speak in complete sentences Auscultation: clear to auscultation bilaterally Cardio Rate: regular rate Rhythm: regular rhythm GI Palpation: soft and nontender Skin General skin exam: no rashes or lesions noted Neuro General: alert, awake, moves all extremities and no focal motor deficits Sensory Exam: no sensory deficits noted Psych Appearance: grossly normal Mental Status: mental status grossly normal Course Vital Signs Vital signs: Vital Signs Temperature 36.8 C 04/24/19 12:09 Pulse 109 H 04/24/19 12:09 Respiratory Rate 18 04/24/19 12:09 Blood Pressure 115/64 04/24/19 12:09 Pulse Oximetry 95 04/24/19 12:09 Temperature 36.8 C 04/24/19 12:09 Temperature Source Temporal Artery Scan 04/24/19 12:09 Pulse 109 H 04/24/19 12:09 Respiratory Rate 18 04/24/19 12:09 Respiratory Effort Non-Labored 04/24/19 12:12 Blood Pressure 115/64 04/24/19 12:09 Blood Pressure Position Supine 04/24/19 12:09 Pulse Oximetry 95 04/24/19 12:09 Oxygen Delivery Method Room Air 04/24/19 12:09 Oxygen Flow Rate 0 04/24/19 12:09 Pain Level 10 04/24/19 12:09
[2019-04-24 13:18] VITALS: BP 129/65; PULSE 102; RESP 18; TEMP 37.1; O2SAT 95
--- NOTE | 2019-04-24 15:00 | CMPROGNOTE_ITS ---
- If Service Date Differs Date of service: 04/24/19 Time of Service: 15:00 Care Management Progress Note MARY ANN meets with patient and his women's basketball coach at the request of ED provider. Juan Jose comes to the ED today seeking medical clearance so he can go [facility]. He states he has already spoke to [facility] and they are holding a bed for him. MARY ANN telephones the [facility] to confirm a bed is being held for Juan Jose. Radha at the [facility] advises they need to obtain Juan Jose' insurance information before they can offer him a bed. If he has no insurance, he will need to pay $15,000 up front for his detox stay. MARY ANN relays the conversation with Radha to Juan Jose and the women's basketball coach. Juan Jose advises that he has health insurance through [employer] but does not have his insurance card and does not know his member number. [facility] is able to look up his insurance and discover that the [employer] policy in September of 2018. Juan Jose is therefore currently uninsured. MARY ANN again meets with Juan Jose and the women's basketball coach to advise them of the status of his insurance. women's basketball coach agrees to take Juan [facility] to [facility], so he can apply for [place] Medicaid as soon as he is [facility] from [facility]. Once Juan Jose has health insurance, the women's basketball coach will assist in getting him into detox.
== END 2019-04-24 13:23 | disposition home or self-care (01) ==
PROVIDERS: Emergency Provider Physician Assistant
DX: F10.230 Alcohol dependence with withdrawal, uncomplicated (principal); Z13.9 Encounter for screening, unspecified; I10 Essential (primary) hypertension
CPT/HCPCS: 99281; 99283

== ENCOUNTER 2019-04-28 17:54 | Emergency (ER) | payer MEDICAID, SELFPAY ==
[2019-04-28 17:58] VITALS: BP 111/68; PULSE 97; TEMP 37.5; O2SAT 95
--- NOTE | 2019-04-28 18:00 | DI.CT_ITS ---
EXAM: CT HEAD CERVICAL SPINE WO CLINICAL HISTORY: fall, etoh, hit head. TECHNIQUE: Imaging Protocol: Axial computed tomography images of the with coronal and sagittal refo rmatted images were created and reviewed. CONTRAST MATERIAL: Intravenous: Omnipaque 350 Contrast volume:structured data in ml Contrast route:I V - Oral: yes / no COMPARISON: No exams were available for comparison FINDINGS: There is patient motion artifact. CT head: Ventricles and Extra axial spaces: There is cerebral atrophy consistent with the patient's age. Hemorrhage: None. Cerebral parenchyma: Normal. No acute territorial infarct. 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 It that midline shift: None. Brainstem/Cerebellum: Normal. Calvarium: Normal. There is a lucency seen to the left of midline of the alveolar ridge of the maxill a. This may be a fracture. It is of indeterminate acuity. Please correlate with clinical history. Visualized Paranasal sinuses/Mastoids: Mild mucosal thickening in the ethmoid air cells. No fluid le vels are seen. The mastoid air cells are well pneumatized. CT cervical spine: No acute fractures or subluxations of the cervical spine are noted. The odontoid is intact. The lat eral masses are well aligned. There are moderately severe degenerative changes present throughout th e cervical spine. There is straightening of the normal cervical lordosis. This may be due to muscle spasm or patient positioning. The prevertebral soft tissues are unremarkable. The lung apices are clear. IMPRESSION: 1. No acute intracranial process. 2. Lucency seen to the left of midline of the alveolar ridge of the maxilla. Fracture cannot be excl uded. This is of indeterminate acuity. Please correlate with patient's clinical history. 3. No acute fracture or subluxation in the cervical spine. DATA REPOSITORY: All CT scans at this facility are submitted to the National Radiology Data Registry (NRDR) Dose Index Registry (DIR) with the [employer] ([employer]). RADIATION OPTIMIZATION: All CT scans at this facility use at least one of these dose optimization te chniques: automated exposure control; mA and/or kV adjustment per patient size (includes targeted exa ms where dose is matched to clinical indication); or iterative reconstruction.
--- NOTE | 2019-04-28 18:05 | W.ED.GENAD ---
Discharge Plan Disposition Patient Disposition: HOME Condition: Good Discharge Details Chief Complaint: HeadInjury Clinical Impression: Intoxication, Fall, History of alcohol abuse Primary Care Provider: None,None ED Provider: Brett Blanco Discharge Instructions Instructions: Abuse of Alcohol (ED) Additional Instructions: Please go directly to the [facility]. If you notice any worsening of your symptoms, or any new symptoms such as vomiting, diarrhea, fever, chills, shortness of breath, chest pain, numbness, weakness, or fainting , please return immediately to the emergency department for reevaluation. Please follow up with your primary care provider as soon as possible for reassessment and reevaluation. As always, it was a pleasure participating in your medical care today. Medical Decision Making <Fidel Smith, - Last Filed: 04/28/19 19:42> Patient is a 58-year-old male with a history of alcohol abuse, hypertension, hyperlipidemia, pancreatitis, pancreatic cancer, myocardial infarction has had previous pancreatic stents, with subsequent removal, who is been currently moving around between [place], [place], [place] most recently and now seen transferring [place]. He is currently homeless and spending much of his time at the [facility]. Today he spent much of his time drinking, he came to the [facility] tonight was noticed to be intoxicated and unstable, and unfortunately then had a mechanical fell backwards and hit his head. EMS was contacted, patient was put in C-spine precautions with no signs of focal deficits and brought to the ER for further evaluation. Currently the patient does not have any significant complaints but does admit to mild head pain and neck pain. No other acute complaints at this time. Physical exam demonstrates no significant objective findings, he does show evidence of some mild paraspinal cervical spine tenderness, but no focal midline tenderness or other abnormalities. He is intoxicated. We will get a CT scan of the head neck, call reading recovery teacher for assessment and monitor closely. 7:[address] scan results have returned, severe motion artifact is noted secondary to patient noncompliance during CAT scan. There is cerebral atrophy probable underlying microvascular ischemic changes secondary to a lacunar infarct but no evidence of acute intracranial process at this time. Evaluation of the face on the CT scan does show a defect over the alveolar ridge of the maxilla the atypical tooth formation, however upon my clinical reevaluation the patient has in fact no teeth there whatsoever, no tenderness there over the entire alveolar ridge, no signs of [place] fracture or any other abnormality especially as noted on initial exam. The CT findings are secondary to notable motion artifact, and not evidence of actual fracture at this time. Patient actually has no teeth on the left-hand side of the upper teeth which is inconsistent with the findings noted on the CT scan, showing the notable motion artifact component. I suspect that the remaining teeth he has in the left lower region is what is being seen and obscuring on the CT scan. This time the patient is remaining stable, he has removed his own c-collar, and refuses to wear it. With a CT spine negative for acute fracture I feel that we will not push the issue anymore. Once the patient has demonstrated clinical sobriety I feel he can be discharged back to the [facility] long term. The case will be signed out to my colleague Dr. Blanco for final assessment of clinical sobriety for disposition. FINDINGS: Brain: Bilateral prominence of cerebral sulci reflects diffuse atrophy with probable microvascular ischemic changes also seen throughout the deep and periventricular white matter of both cerebral hemispheres. A more discrete chronic lacunar infarct is identified involving the left caudate head and adjacent anterior margin of the left lentiform nucleus. Brainstem and cerebellum are normal appearance and there is no evidence of acute intracranial hemorrhage. Ventricles: Mild dilatation of the 3rd and lateral ventricles is commensurate with the degree of cerebral volume loss and focally more prominent in the region of the left frontal horn related to the chronic left-sided basal ganglia lacune. Bones/joints: The bony calvarium and skull base appear intact. There is a bony defect involving the alveolar process of the maxilla to the left of midline evident on the most inferior axial images with associated motion artifact obscuring anatomic detail Sinuses: Mild membrane thickening involves a few scattered ethmoidal lamellae with mild mucosal disease also seen along the base of the right maxillary sinus and other paranasal sinuses clear. Mastoid air cells: Visualized mastoid air cells are normally pneumatized and well aerated. Soft tissues: Unremarkable. IMPRESSION: 1. Cerebral atrophy and probable underlying microvascular ischemic changes with a lacunar infarct also noted in the region left basal ganglia. There is no evidence of recent hemorrhage, hydrocephalus or other acute intracranial process. 2. Focal defect involving the alveolar ridge of the maxilla to the left of midline could relate to recent injury or represent a chronic defect; please correlate with clinical data. FINDINGS: Vertebrae: The craniocervical and atlantoaxial articulations are preserved and the odontoid process appears intact. There is minimal reversal of cervical lordosis and vertebral body height is intact throughout cervical levels with no acute fractures or dislocations detected. Posterior elements appear grossly intact throughout the cervical spine. Discs/Spinal canal/Neural foramina: Degenerative disc changes are seen throughout mid lower cervical levels with posterior osteocartilaginous ridging indenting ventral thecal sac producing mild canal stenosis C5-C6 with mild distortion of the ventral thecal sac also seen related to posterior osteocartilaginous ridging at C3-C4, C4-C5 and C6-C7. No severe cord compression is suspected at any cervical level. Uncovertebral and facet changes produce right foraminal narrowing at C3-C4 and bilateral foraminal narrowings at C4-C5, C5-C6 and C6-C7. Soft tissues: Unremarkable. Lungs: No mass or consolidation detected at the lung apices. IMPRESSION: Cervical spondylosis with multilevel degenerative changes and no acute injury detected. The most significant central canal narrowing is seen at C5-C6 and there also foraminal narrowings throughout mid to lower cervical levels as above. Thank you for allowing us to participate in the care of your patient. Dictated and Authenticated by: Evelio Wise MD 04/28/2019 7:16 PM Eastern Time ([place] & [place]) <Brett Blanco MD - Last Filed: 04/28/19 20:35> pt now walking with steady gait unassisted and caox4, clinically sober. Will d/c and will goto [facility] from here HPI <Fidel Smith DO - Last Filed: 04/28/19 19:42> General Date/Time Provider Initiated Documentation: 04/28/19 17:59. HPI Narrative: Patient is a 58-year-old male with a history of alcohol abuse, hypertension, hyperlipidemia, pancreatitis, pancreatic cancer, myocardial infarction has had previous pancreatic stents, with subsequent removal, who is been currently moving around between [place], [place], [place] most recently and now seen transferring [place]. He is currently homeless and spending much of his time at the [facility]. Today he spent much of his time drinking, he came to the [facility] tonight was noticed to be intoxicated and unstable, and unfortunately then had a mechanical fell backwards and hit his head. EMS was contacted, patient was put in C-spine precautions with no signs of focal deficits and brought to the ER for further evaluation. Currently the patient does not have any significant complaints but does admit to mild head pain and neck pain. No other acute complaints at this time. Related Data Allergies Allergy/AdvReac Type Severity Reaction Status Date / Time Penicillins Allergy Unverified 04/24/19 12:14 General Stated Complaint: HeadInjury DMITRI: 3 Review of Systems <Fidel Covarrubiasjosi - Last Filed: 04/28/19 19:42> All systems reviewed & are unremarkable except as noted in HPI and below PFSH <Fidel Villar Luis - Last Filed: 04/28/19 19:42> Social History Smoking/Tobacco Use Status: Current every day Alcohol Intake: current Alcohol Intake frequency: 3 or more drinks per day Alcohol type: hard liquor Drug use: Never Substance use type: crack/cocaine Details: last crack cocaine--1 month ago----last ETOH at 0930 today Additional Social history: homeless Exam <Fidel Covarrubiasjosi - Last Filed: 04/28/19 19:42> Narrative Exam Narrative: 1.Const: Well-nourished, Well-developed, appearing stated age 2.Eyes: PERRL, no conjunctival injection, and symmetrical lids. 3.ENT: Atraumatic external nose and ears. Moist MM. Neck: Symmetric, trachea midline, No thyromegaly. There is no evidence of raccoon eyes, dyson sign, CSF rhinorrhea, mastoid tenderness, cranial crepitus, hemotympanum, exophthalmos, or hyphema. Patient demonstrates intact dentition with no signs of tooth avulsion or fracture, no signs of jaw deformity, no evidence of a LeFort's fracture, with an intact palate, nose and orbital region. There is no evidence of a nasal septal hematoma. No proptosis. Jaw closes symmetrically. Airway is clear. 4.CVS: Regular rate and rhythm, Normal s1 and s2. No murmurs, carotid bruits, rubs, or gallops. Radial pulses 2+ bilaterally and symmetric. Dorsalis pedis pulses 2+ bilaterally and symmetric. 2+ capillary refill. No evidence of distant heart sounds. No extremity edema. No evidence of gross hemorrhage. 5.RESP: Airway clear, no obstructions. No abrasions or ecchymosis. Chest movement symmetric with respirations. No chest wall tenderness. Trachea midline. No crepitus. No step offs. No paradoxical movements. Lungs are clear to auscultation bilaterally. No rales, rhonchi, wheezing or stridor. Breath sound symmetric. No Sucking chest wounds. No clinical evidence of significant chest trauma. 6.GI: Soft, nondistended, with no significant acute tenderness. Bowel tones normoactive. No masses or organomegaly. No ecchymosis or abrasions. No periumbilical ecchymosis or seatbelt sign. No flank or CVA tenderness. No clinical signs of significant trauma. No clinical evidence of significant abdominal trauma. 7.MSK: No gross deformities or discolorations or lesions. Tolerates full range of motion of extremities without tenderness. All compartments of upper and lower extremities are soft with no tenderness. Vascular exam demonstrates brisk capillary refill and intact pulses in all extremities. Pelvic exam demonstrates a stable pelvis, nontender to lateral compression and palpation of symphysis pubis.. No clinical evidence of significant musculoskeletal trauma. He has no midline cervical spine tenderness, he does have mild paraspinal tenderness of the cervical spine. No thoracic or lumbar spine tenderness. 8.Skin: Warm, Dry. No rashes or lesions. 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 Sensation grossly intact, no focal neurologic deficits. 10.Psych: (AAO) x3. Notably intoxicated Course <Fidel Smith, DO - Last Filed: 04/28/19 19:42> Vital Signs Vital signs: Vital Signs Temperature 37.5 C 04/28/19 17:58 Pulse 97 H 04/28/19 17:58 Blood Pressure 111/68 04/28/19 17:58 Pulse Oximetry 95 04/28/19 17:58 Temperature 37.5 C 04/28/19 17:58 Temperature Source Skin 04/28/19 17:58 Pulse 97 H 04/28/19 17:58 Respiratory Effort 04/28/19 18:02 Blood Pressure 111/68 04/28/19 17:58 Blood Pressure Position Sitting 04/28/19 17:58 Pulse Oximetry 95 04/28/19 17:58 Oxygen Delivery Method Room Air 04/28/19 17:58 Oxygen Flow Rate 0 04/28/19 17:58 Sign Out <Fidel Smith DO - Last Filed: 04/28/19 19:42> Sign Out Data: Sign Out Comment: CT results and clinical impression negative for significant acute fracture. Pending clinical sobriety and then discharged to [facility] long term Last updated by Fidel Smith DO at 04/28/19 19:44
--- NOTE | 2019-04-28 18:16 | NUR.NOTE ---
Nursing Note: Pt established with a recovery coordinator already and requesting to be seen while here. softball coach paged and will be in to see this pt.
--- NOTE | 2019-04-28 19:16 | DI.VRAD_ITS ---
PROCEDURE INFORMATION: Exam: CT Head Without Contrast Exam date and time: 04/28/2019 6:31 PM Age: 58 years old Clinical indication: Injury or trauma; Initial encounter; Blunt trauma (contusions or hematomas); Patient HX: Fall, hit head, ETOH TECHNIQUE: Imaging protocol: Computed tomography of the head without contrast. COMPARISON: No relevant prior studies available. FINDINGS: Brain: Bilateral prominence of cerebral sulci reflects diffuse atrophy with probable microvascular ischemic changes also seen throughout the deep and periventricular white matter of both cerebral hemispheres. A more discrete chronic lacunar infarct is identified involving the left caudate head and adjacent anterior margin of the left lentiform nucleus. Brainstem and cerebellum are normal appearance and there is no evidence of acute intracranial hemorrhage. Ventricles: Mild dilatation of the 3rd and lateral ventricles is commensurate with the degree of cerebral volume loss and focally more prominent in the region of the left frontal horn related to the chronic left-sided basal ganglia lacune. Bones/joints: The bony calvarium and skull base appear intact. There is a bony defect involving the alveolar process of the maxilla to the left of midline evident on the most inferior axial images with associated motion artifact obscuring anatomic detail Sinuses: Mild membrane thickening involves a few scattered ethmoidal lamellae with mild mucosal disease also seen along the base of the right maxillary sinus and other paranasal sinuses clear. Mastoid air cells: Visualized mastoid air cells are normally pneumatized and well aerated. Soft tissues: Unremarkable. IMPRESSION: 1. Cerebral atrophy and probable underlying microvascular ischemic changes with a lacunar infarct also noted in the region left basal ganglia. There is no evidence of recent hemorrhage, hydrocephalus or other acute intracranial process. 2. Focal defect involving the alveolar ridge of the maxilla to the left of midline could relate to recent injury or represent a chronic defect; please correlate with clinical data. PROCEDURE INFORMATION: Exam: CT Cervical Spine Without Contrast Exam date and time: 04/28/2019 6:31 PM Age: 58 years old Clinical indication: Injury or trauma; Initial encounter; Blunt trauma (contusions or hematomas); Patient HX: Fall, hit head, ETOH TECHNIQUE: Imaging protocol: Computed tomography images of the cervical spine without contrast. COMPARISON: No relevant prior studies available. FINDINGS: Vertebrae: The craniocervical and atlantoaxial articulations are preserved and the odontoid process appears intact. There is minimal reversal of cervical lordosis and vertebral body height is intact throughout cervical levels with no acute fractures or dislocations detected. Posterior elements appear grossly intact throughout the cervical spine. Discs/Spinal canal/Neural foramina: Degenerative disc changes are seen throughout mid lower cervical levels with posterior osteocartilaginous ridging indenting ventral thecal sac producing mild canal stenosis C5-C6 with mild distortion of the ventral thecal sac also seen related to posterior osteocartilaginous ridging at C3-C4, C4-C5 and C6-C7. No severe cord compression is suspected at any cervical level. Uncovertebral and facet changes produce right foraminal narrowing at C3-C4 and bilateral foraminal narrowings at C4-C5, C5-C6 and C6-C7. Soft tissues: Unremarkable. Lungs: No mass or consolidation detected at the lung apices. IMPRESSION: Cervical spondylosis with multilevel degenerative changes and no acute injury detected. The most significant central canal narrowing is seen at C5-C6 and there also foraminal narrowings throughout mid to lower cervical levels as above. Dictated and Authenticated by: Evelio Wise MD. Ordering:JACIEL Parra MD
[2019-04-28 19:22] VITALS: BP 96/58; PULSE 98; RESP 20; TEMP 38.1; O2SAT 94
[2019-04-28 19:26] VITALS: TEMP 37.6
[2019-04-28 20:35] VITALS: BP 111/69; PULSE 84; RESP 16; TEMP 36.5; O2SAT 96
--- NOTE | 2019-04-28 20:35 | NUR.NOTE ---
Ambulating in department with steady gait.
--- NOTE | 2019-04-28 20:43 | NUR.NOTE ---
Ambulated to [facility] with steady gait. [facility] Director to [facility] to [facility]
== END 2019-04-28 20:40 | disposition home or self-care (01) ==
PROVIDERS: Emergency Provider Emergency Medicine
DX: S09.90XA Unspecified injury of head, initial encounter (principal); W19.XXXA Unspecified fall, initial encounter; M54.2 Cervicalgia; F10.120 Alcohol abuse with intoxication, uncomplicated; I10 Essential (primary) hypertension; Z59.0 Homelessness
CPT/HCPCS: 99284; 70450; 72125; 99283

== ENCOUNTER 2019-06-02 19:04 | Emergency (ER) | payer MEDICAID, SELFPAY ==
--- NOTE | 2019-06-02 18:59 | ED.GENADUL_ITS ---
Discharge Plan Disposition Patient Disposition: HOME Condition: Good Discharge Details Chief Complaint: GenMedical Clinical Impression: Atypical chest pain, Chronic abdominal pain, Chronic dyspnea Primary Care Provider: None,None ED Provider: Fidel Smith Home Meds and New Rx's Prescriptions: No Action No Known Home Meds RF: 0 Discharge Instructions Instructions: Chest Pain (ED), Chronic Pain (ED) Additional Instructions: Drink plenty of fluids and get plenty of rest. Follow-up with your primary care doctor in 1 week. Return to the emergency department with any worsening or new concerning symptoms. If you notice any worsening of your symptoms, or any new symptoms such as vomiting, diarrhea, fever, chills, shortness of breath, chest pain, numbness, weakness, or fainting , please return immediately to the emergency department for reevaluation. Please follow up with your primary care provider as soon as possible for reassessment and reevaluation. As always, it was a pleasure participating in your medical care today. Discharge Data Discharge Date/Time-TO BE ENTERED AT DEPARTURE: 06/02/19 21:10 Discharge Physician: Emi Diane Medical Decision Making <Emi Diane DO - Last Filed: 06/02/19 19:54> 1921 -- 59-year-old male with a history of alcohol abuse, pancreatitis, pancreatic cancer with pancreatic stent since removed, myocardial infarction, hypertension, hyperlipidemia presents with several weeks of chest pain, sh ortness of breath, dry cough and upper abdominal pain and states I am dying of COVID. Heart rate 100s. Afebrile. Lungs clear. Diffuse abdominal tenderness, worse in upper abdomen. EKG on arrival notes a rate of 107, atrial flutter and no acute ST ischemic changes. Patient appears intoxicated. He initially stated I do not want to and then stated maybe I just want a . He then stated I think I want a leave and that he stated we will hurry up and do your test so I can figure out was wrong with me . Differential diagnosis includes dehydration, alcohol intoxication, ACS, bronchitis, pneumonia. History and presentation not consistent with dissection. Will check screening labs, chest x-ray, and give fluids. 1999 --Case endorsed to Dr. Smith to follow-up on results and final disposition. Medical Records Medical records reviewed: Yes I reviewed the patient's medical records. ECG Data Attestation: I personally reviewed and interpreted this ECG (s) as follows: Interpretation: Rate of 107, atrial flutter, no acute ST elevation or depression. QTc 459. QRS 92. <Fidel Smith DO - Last Filed: 06/03/19 06:47> Patient's laboratory work-up has returned unremarkable, signs and symptoms are clinically inconsistent with ACS. No clinical evidence of dissection. No evidence of pancreatitis. No elevated white count, significant electrolyte abn ormality, or renal dysfunction. Initial ethyl alcohol was elevated, on reassessment during and at the end of the patient stay here he demonstrated notable clinical sobriety. Currently he denies any homicidal or suicidal ideations. This time patient's notable medical screening exam was completed and at this time there is no evidence of acute life-threatening abnormality. Patient is stable for discharge. The patient is able to speak clearly. There is no demonstration of any slurring of speech. There is evidence of clear decision making capacity. Patient is able to ambulate well without any difficulty. There are no signs of ataxia or stumbling motions. He is notably asking to go right away and does not want to stay any longer. I have extensively reviewed the treatment plan and discharge instructions with the patient. I have addressed all patient concerns at this time. The patient was made aware of what symptoms to monitor for that would warrant a return to the emergency department. Discussed the plan with the patient, they demonstrate verbal understanding and agreement with our assessment and plan at this time. FINDINGS: Lungs: Unremarkable. No consolidation. Pleural space: Unremarkable. No pleural effusion. No pneumothorax. Heart/Mediastinum: Unremarkable. No cardiomegaly. Bones/joints: Unremarkable. IMPRESSION: No infiltrates or effusions. Thank you for allowing us to participate in the care of your patient. Dictated and Authenticated by: Elijah Bill MD 06/02/2019 8:28 PM Eastern Time ([place] & [place]) HPI <Emi Diane DO - Last Filed: 06/02/19 19:54> General Mode of arrival: ambulatory . Date/Time Provider Initiated Documentation: 06/02/19 19:56 . Limitations to Documentation: no limitations . Information obtained by: patient . HPI Narrative: Patient is a 59-year-old male with a history of chronic alcohol abuse, pancreatitis, hyperlipidemia and MO who presents with substernal chest pain, shortness of breath, dry cough and upper abdominal pain for the past few weeks. He states he has had similar symptoms in the past before. He states his abdominal pain could be consistent with his previous pancreatitis. He does drink approximately 4 drinks daily and states he had 4 cans of beer today. He denies any recent drug use. Patient states I am scared of dying and I dying of COVID. Patient states he was tested for Covid recently here which he states returned as negative. Patient states he has felt feverish but has not taken his temperature. Related Data Home Medications Medication Instructions Recorded Confirmed Unknown [No Known Home Meds] 06/02/19 06/02/19 Allergies Allergy/AdvReac Type Severity Reaction Status Date / Time Penicillins Allergy Unverified 06/02/19 19:13 General DMITRI: 3 Review of Systems <Emi Diane DO - Last Filed: 06/02/19 19:54> All systems reviewed & are unremarkable except as noted in HPI and below Constitutional Constitutional: Reports as per HPI, Denies chills and Denies fever(s) Eyes Eyes: Denies blurry vision ENT Ears, Nose, Mouth, and Throat: Denies dizziness, Denies sore throat and Denies throat swelling Cardiovascular Cardiovascular: Reports chest pain and Reports dyspnea Respiratory Respiratory: Reports cough and Reports dyspnea Gastrointestinal Gastrointestinal: Denies abdominal pain, Denies diarrhea and Denies vomiting Genitourinary Genitourinary: Denies hematuria and Denies dysuria Musculoskeletal Musculoskeletal: Denies back pain and Denies numbness Integumentary/Breasts Skin/Breast: Denies lesions and Denies rash Neurologic Neurologic: Denies dizziness, Denies localized weakness and Denies numbness Allergic/Immunologic Allergic/Immunologic: Denies throat swelling PFS <Emi Diane DO - Last Filed: 06/02/19 19:54> Social History Smoking/Tobacco Use Status: Current every day Tobacco Type: cigarettes Smoking packs per day: 1 Smoking cigarettes per day: 20.0 Alcohol Intake: current Alcohol Intake frequency: 3 or more drinks per day Alcohol type: hard liquor Drug use: Occasionally Substance use type: marijuana and crack/cocaine Details: last crack cocaine--1 month ago----last ETOH at 0930 today Additional Social history: homeless Exam <Emi Diane DO - Last Filed: 06/02/19 19:54> Const General: cooperative, anxious and intoxicated appearing Orientation: alert, awake and oriented x3 HENMT Head: normal to inspection Face and sinus: normal facial exam Eyes General: appearance normal, both eyes and all related structures EOM: EOM intact bilaterally Neck Neck: normal visual inspection and No submandibular swelling Lymphatic: no lymphadenopathy noted Chest Chest: normal inspection of the chest and no tenderness Resp Effort & Inspection: normal respiratory effort and able to speak in complete sentences Auscultation: clear to auscultation bilaterally Cardio Rate: regular rate Rhythm: regular rhythm GI Inspection: normal to inspection Palpation: soft, not firm, not rigid and tender (diffuse) Auscultation: normal bowel sounds Skin General skin exam: no rashes or lesions noted Neuro General: patient alert, patient awake, patient oriented x3, moves all extremities, no meningeal signs and no focal motor deficits Cognition: normal cognition Speech: speech normal Motor: muscle tone normal throughout Sensory Exam: no sensory deficits noted Extrem General: normal to inspection, full ROM, capillary refill normal, no calf tenderness bilaterally and no edema Psych Appearance: grossly normal Mental Status: mental status grossly normal Speech and Movement: speech and movement normal Affect: normal affect Sign Out <Emi Diane DO - Last Filed: 06/02/19 19:54> Sign Out Data: Sign Out Comment: Follow-up on labs and imaging and final disposition. Last updated by Emi Diane DO at 06/02/19 19:55
[2019-06-02 19:09] VITALS: BP 129/79; PULSE 104; RESP 20; TEMP 36.6; O2SAT 100
[2019-06-02 19:14] VITALS: RESP 19
[2019-06-02] MEDS: Normal Saline 1,000 ML 1000 ML IV (19:45)
[2019-06-02 19:55] LABS: Abs Immature Grans 0.01 k/cumm (0.0-0.09); Absolute Basophil Count 0.02 k/cumm (0.0-0.2); Absolute Eosinophil Count 0.09 k/cumm (0.0-0.7); Absolute Neutrophil Count 2.36 k/cumm (1.2-6.7); Basophils % 0.3; Eosinophils % 1.5; HCT 41.6 % (40.0-50.0); HGB 14.5 g/dL (13.5-17.5); Immature Grans % 0.2 %; Lymphocytes % 49.3; Mean Corp. HGB Concentration 34.9 g/dL (32.0-36.0); Mean Corpuscular Hemoglobin 31.3 pg (27.0-33.0); Mean Corpuscular Volume 89.8 fL (80-95); Monocytes % 8.5; Neutrophils % 40.2; Platelet Count 231 x1000/uL (130-400); RBC 4.63 m/cumm (4.50-6.00); RBC Distribution Width 13.7 % (11.8-14.1); White Blood Cell Count 5.88 k/cumm (4.4-10.8)
--- NOTE | 2019-06-02 20:05 | DI.RAD_ITS ---
EXAM: XR PORTABLE CHEST AP CLINICAL HISTORY: <chest pain, sob, cough, r/o acute disease> TECHNIQUE: 2D digital imaging was performed. COMPARISON: CT CHEST/ABD/PEL W from 04/18/2019 FINDINGS: LUNGS: Clear. No pleural abnormality seen. No pneumothorax. HEART: Size within normal limits for projection. MEDIASTINUM: Normal. EKG leads are noted. IMPRESSION: No acute pulmonary findings. DATA REPOSITORY: RADIATION DOSE DELIVERED:
[2019-06-02 20:14] LABS: ETHANOL BLOOD 329.9 mg/dL (<3)
[2019-06-02 20:17] LABS: ALT 75 U/L (16-63); AST 66 U/L (15-37); Albumin 3.6 g/dL (3.4-5.0); Alkaline Phosphatase 103 U/L (46-116); Anion Gap 12.6 mmol/L (3-11); BUN 16 mg/dL (7-18); Bilirubin, Total 0.3 mg/dL (0.2-1.0); CO2 23.4 mmol/L (21.0-32.0); CREATININE 0.75 mg/dL (0.70-1.30); Calcium 8.4 mg/dL (8.5-10.1); Chloride 103 mmol/L (98-107); Glucose 98 mg/dL (74-106); Lipase 335 U/L (73-393); Magnesium 2.3 mg/dL (1.8-2.4); Potassium 3.6 mmol/L (3.5-5.1); Sodium 139 mmol/L (136-145); Total Protein 7.6 g/dL (6.4-8.2)
[2019-06-02 20:19] LABS: Troponin I < 0.05 ng/Ml (<0.06)
--- NOTE | 2019-06-02 20:28 | DI.VRAD_ITS ---
PROCEDURE INFORMATION: Exam: XR Chest, 1 View Exam date and time: 06/02/2019 8:06 PM Age: 59 years old Clinical indication: Other: Chest pain, SOB, cough, R/O acute disease TECHNIQUE: Imaging protocol: XR of the chest Views: 1 view. COMPARISON: No relevant prior studies available. FINDINGS: Lungs: Unremarkable. No consolidation. Pleural space: Unremarkable. No pleural effusion. No pneumothorax. Heart/Mediastinum: Unremarkable. No cardiomegaly. Bones/joints: Unremarkable. IMPRESSION: No infiltrates or effusions. Dictated and Authenticated by: Elijah Bill MD. Ordering:KIMBERLY Middleton MD
[2019-06-02 20:58] LABS: D-Dimer 241 ng/mlFEU (<500)
[2019-06-02 21:14] VITALS: BP 113/76; PULSE 86; RESP 18; TEMP 36.6; O2SAT 99
--- NOTE | 2019-06-02 21:26 | CMPROGNOTE_ITS ---
- If Service Date Differs Date of service: 06/02/19 Time of Service: 21:27 Care Management Progress Note ED contacts CM to request a ride be arranged for Juan Jose back to the [facility] in [place]. Before a ride can be arranged with [facility], Juan Jose reportedly leaves the hospital on foot.
--- NOTE | 2019-06-02 21:26 | PDOC.ERCMPRO ---
- If Service Date Differs Date of service: 06/02/19 Time of Service: 21:27 Care Management Progress Note ED contacts CM to request a ride be arranged for Juan Jose back to the [facility] in [place]. Before a ride can be arranged with [facility], Juan Jose reportedly leaves the hospital on foot.
[2019-06-02 21:40] LABS: *AMPHETAMINES SCREEN URINE Negative (Negative); *BARBITURATES SCREEN URINE Negative (Negative); *BENZODIAZEPINES SCREEN URINE Negative (Negative); Cannabinoids THC POSITIVE (Negative); Cocaine Screen,Urine Negative (Negative); METHADONE URINE SCREEN Negative (Negative); OPIATES URINE SCREEN Negative (Negative)
[2019-06-02 21:43] LABS: Tricyclic Antidepressants Negative (Negative)
== END 2019-06-02 21:10 | disposition home or self-care (01) ==
PROVIDERS: Physician Assistant; Emergency Provider Student in an Organized Health Care Education/Training Program
DX: R07.89 Other chest pain (principal); R10.10 Upper abdominal pain, unspecified; G89.29 Other chronic pain; R06.09 Other forms of dyspnea; F10.10 Alcohol abuse, uncomplicated; I10 Essential (primary) hypertension
CPT/HCPCS: 80053; 80307; 83690; 93005; 96360; 99284; 71045; 80320; 83735; 84484; 85025; 85379; 93010

== ENCOUNTER 2019-08-11 21:39 | Emergency (ER) | payer MEDICAID, SELFPAY ==
[2019-08-11] VITALS (22 sets, daily range): BP systolic 141–169; BP diastolic 71–97; PULSE 79–107; RESP 12–16; TEMP 36.8; O2SAT 90–95
[2019-08-11] MEDS: Normal Saline 1,000 ML 1000 ML IV (21:48)
--- NOTE | 2019-08-11 21:51 | W.ED.GENAD ---
Discharge Plan Disposition Patient Disposition: HOME Condition: Good Discharge Details Chief Complaint: OD/Poison Clinical Impression: Overdose Primary Care Provider: None,None ED Provider: Fidel Smith Home Meds and New Rx's Prescriptions: No Action No Known Home Meds RF: 0 Discharge Instructions Instructions: Adult Overdose (ED) Additional Instructions: It is very important not to take Librium alcohol and methadone together. Taking all of these together especially when now prescribed can be very dangerous and lead to a premature . Please follow-up closely with your recovery coaches. Please reach out to us at any time if you need help. If you notice any worsening of your symptoms, or any new symptoms such as vomiting, diarrhea, fever, chills, shortness of breath, chest pain, numbness, weakness, or fainting , please return immediately to the emergency department for reevaluation. Please follow up with your primary care provider as soon as possible for reassessment and reevaluation. As always, it was a pleasure participating in your medical care today. Medical Decision Making Patient is a 59-year-old male with a history of alcohol abuse, hypertension, hyperlipidemia, pancreatitis, pancreatic cancer, myocardial infarction has had previous pancreatic stents, with subsequent removal, who is been currently moving around between [place], [place], [place] most recently and now currently living at the [facility] in [facility]. He presents today for evaluation of unintentional overdose. Patient states that he got Librium, methadone, and alcohol from a friend, took them all together which she states he did not know that this would be a bad idea. EMS was then called for noting him to be unresponsive sitting on a park bench in [place]. Upon their arrival his oxygen saturations were in the 70s, he was breathing spontaneously but unable to be aroused otherwise. He was given 2 milligrams of Narcan intranasally, and came back in a very normal fashion. He denies any homicidal or suicidal ideations. He states that he did not do anything in an attempt to harm himself. He regrets his decision, and wishes for his disaster recovery manager is to be contacted. He states that he feels fine now, but does feel little dry mouth. He denies any chest pain, chest tightness, chest heaviness, headache, nausea, vomiting, diarrhea, fever or chills. No other complaints at this time. No other modifying factors. Physical exam is notably unremarkable. His disaster recovery manager has been contacted and the case was discussed with her. Patient demonstrates a notably benign appearance at this time, EKG unremarkable, does appear mildly dehydrated. Because of the potential longevity of the methadone and Librium that he took we will observe the patient here in the ER for an extended period to make sure that after the Narcan wears off he has no return of his symptoms or obtundation. We will gently rehydrate, get basic screening labs, monitor closely and reassess. 11:59 PM On reassessment the patient is doing very well, he has been notably hemodynamically stable here, no signs of obtundation, lethargy, or altered mental status. No evidence of prolonged hypoxemia or signs of alteration secondary to ingested medications. Patient appears stable for discharge. Repeat neurologic exam shows no abnormalities. Patient has no complaints, feels well would like to go home. The patient is able to speak clearly. There is no demonstration of any slurring of speech. There is evidence of clear decision making capacity. Patient is able to ambulate well without any difficulty. There are no signs of ataxia or stumbling motions. I have extensively reviewed the treatment plan and discharge instructions with the patient. I have addressed all patient concerns at this time. The patient was made aware of what symptoms to monitor for that would warrant a return to the emergency department. Discussed the plan with the patient, they demonstrate verbal understanding and agreement with our assessment and plan at this time. EKG 21: 51 Rate 96, intervals normal, QRS normal, sinus rhythm, no significant ST elevations or depressions, no evidence of STEMI. HPI General Date/Time Provider Initiated Documentation: 08/11/19 23:41. HPI Narrative: Patient is a 59-year-old male with a history of alcohol abuse, hypertension, hyperlipidemia, pancreatitis, pancreatic cancer, myocardial infarction has had previous pancreatic stents, with subsequent removal, who is been currently moving around between [place], [place], [place] most recently and now currently living at the [facility] in [facility]. He presents today for evaluation of unintentional overdose. Patient states that he got Librium, methadone, and alcohol from a friend, took them all together which she states he did not know that this would be a bad idea. EMS was then called for noting him to be unresponsive sitting on a park bench in [place]. Upon their arrival his oxygen saturations were in the 70s, he was breathing spontaneously but unable to be aroused otherwise. He was given 2 milligrams of Narcan intranasally, and came back in a very normal fashion. He denies any homicidal or suicidal ideations. He states that he did not do anything in an attempt to harm himself. He regrets his decision, and wishes for his disaster recovery manager is to be contacted. He states that he feels fine now, but does feel little dry mouth. He denies any chest pain, chest tightness, chest heaviness, headache, nausea, vomiting, diarrhea, fever or chills. No other complaints at this time. No other modifying factors. Related Data Home Medications Medication Instructions Recorded Confirmed Unknown [No Known Home Meds] 06/02/19 08/11/19 Allergies Allergy/AdvReac Type Severity Reaction Status Date / Time Penicillins Allergy Unverified 08/11/19 21:47 General Stated Complaint: OD/Poison DMITRI: 2 Review of Systems All systems reviewed & are unremarkable except as noted in HPI and below PFS Medical History HTN (hypertension) (Chronic) Hx of hyperlipidemia (Acute) Myocardial infarction (Chronic) x 2 Pancreatic cancer (Acute) with h/o pancreatic stent Pancreatitis (Chronic) Social History Smoking/Tobacco Use Status: Current every day Tobacco Type: cigarettes Smoking packs per day: 1 Smoking cigarettes per day: 20.0 Alcohol Intake: current Alcohol Intake frequency: 3 or more drinks per day Alcohol type: beer and hard liquor Drug use: Occasionally Substance use type: marijuana and crack/cocaine Additional Social history: homeless Exam Narrative Exam Narrative: 1.Const: Well-nourished, Well-developed, appearing stated age 2.Eyes: PERRL, no conjunctival injection, and symmetrical lids. 3.ENT: Atraumatic external nose and ears. Notably dry MM. Neck: Symmetric, trachea midline, No thyromegaly. 4.CVS: +S1/S2, No murmurs or gallops. Peripheral pulses 2+ and equal in all extremities. Brisk capillary refill in all extremities. 5.RESP: Unlabored respiratory effort. Clear to auscultation bilaterally. No wheezes rales or rhonchi 6.GI: Soft, Nontender/Nondistended, No hepatosplenomegaly. No guarding or rebound. 7.MSK: Normocephalic/Atraumatic, Extremities w/o deformity or ttp No cyanosis or clubbing, Normal movement of all extremities 8.Skin: Warm, Dry. No rashes or lesions. 9.Neuro: nut culler II-XII grossly intact. Sensation grossly intact, no focal neurologic deficits. 10.Psych: (AAO) x3. Appropriate mood and affect Course Vital Signs Vital signs: Vital Signs Temperature 36.8 C 08/11/19 21:40 Pulse 105 H 08/11/19 21:40 Respiratory Rate 15 08/11/19 21:40 Blood Pressure 155/87 H 08/11/19 21:40 Pulse Oximetry 95 08/11/19 21:40 Temperature 36.8 C 08/11/19 21:40 Temperature Source Skin 08/11/19 21:40 Pulse 105 H 08/11/19 21:40 Respiratory Rate 15 08/11/19 21:40 Blood Pressure 155/87 H 08/11/19 21:40 Blood Pressure Position Supine 08/11/19 21:40 Pulse Oximetry 95 08/11/19 21:40 Oxygen Delivery Method Room Air 08/11/19 21:40 Oxygen Flow Rate 0 08/11/19 21:40 Pain Level 10 08/11/19 21:40
[2019-08-11 22:33] LABS: Abs Immature Grans 0.01 k/cumm (0.0-0.09); Absolute Basophil Count 0.04 k/cumm (0.0-0.2); Absolute Eosinophil Count 0.08 k/cumm (0.0-0.7); Absolute Lymphocyte Count 1.41 k/cumm (1.2-3.4); Absolute Monocyte Count 0.51 k/cumm (0.11-0.7); Basophils % 1.1; Eosinophils % 2.1; HCT 39.1 % (40.0-50.0); HGB 13.1 g/dL (13.5-17.5); Immature Grans % 0.3 %; Lymphocytes % 37.6; Mean Corp. HGB Concentration 33.5 g/dL (32.0-36.0); Mean Corpuscular Hemoglobin 31.6 pg (27.0-33.0); Mean Corpuscular Volume 94.4 fL (80-95); Mean Platelet Volume 9.2 fL (8.0-11.0); Monocytes % 13.6; Neutrophils % 45.3; Platelet Count 197 x1000/uL (130-400); RBC 4.14 m/cumm (4.50-6.00); RBC Distribution Width 15.8 % (11.8-14.1); White Blood Cell Count 3.75 k/cumm (4.4-10.8)
[2019-08-11 22:40] LABS: Anion Gap 13.7 mmol/L (3-11); BUN 9 mg/dL (7-18); CO2 21.3 mmol/L (21.0-32.0); CREATININE 0.92 mg/dL (0.70-1.30); Calcium 7.8 mg/dL (8.5-10.1); Chloride 105 mmol/L (98-107); Glucose 103 mg/dL (74-106); Potassium 3.6 mmol/L (3.5-5.1); Sodium 140 mmol/L (136-145)
== END 2019-08-11 23:45 | disposition home or self-care (01) ==
PROVIDERS: Emergency Provider Student in an Organized Health Care Education/Training Program
DX: T42.4X1A Poisoning by benzodiazepines, accidental (unintentional), initial encounter (principal); T40.3X1A Poisoning by methadone, accidental (unintentional), initial encounter; F10.10 Alcohol abuse, uncomplicated; I10 Essential (primary) hypertension; R09.02 Hypoxemia
CPT/HCPCS: 36415; 80048; 80307; 93005; 96360; 99284; 85025; 93010; 99285

== ENCOUNTER 2019-09-29 17:45 | Emergency (ER) | payer MEDICAID, SELFPAY ==
[2019-09-29 17:46] VITALS: BP 154/83; PULSE 100; RESP 20; TEMP 35.5; O2SAT 95
--- NOTE | 2019-09-29 17:54 | W.ED.GENAD ---
Discharge Plan Disposition Patient Disposition: AGAINST MEDICAL ADVICE Condition: Stable Discharge Details Chief Complaint: Abd Prob Clinical Impression: Abdominal pain Primary Care Provider: None,None ED Provider: Jennifer Bowen Home Meds and New Rx's Prescriptions: No Action No Known Home Meds RF: 0 Discharge Instructions Instructions: Abdominal Pain (ED) Additional Instructions: At this time you are opting to leave AGAINST MEDICAL ADVICE your labs look okay you have not had a CT at this time so I cannot rule out that you have worsening pancreatitis or worsening abdominal problem. By signing the AMA form you recognize that he did have loss of life or limb become disabled and have worsening condition including . I encourage you to stay return if you have any worsening pain or any concerns. Follow up with primary care provider in 3-5 days. Return to ED sooner if any worsening or concerns. Increase oral fluids. Medical Decision Making 1803: At this time work-up ordered including CBC, CMP, lipase, urinalysis, UDS, ethyl alcohol CT abdomen pelvis with IV contrast. Normal saline 1 L ordered and Zofran 4 mg. 1833: Walking by room patient is yelling states he wants to leave that he is I am fine. Patient is not done with his work-up has not had his CT abdomen pelvis as well alcohol is 345 at this time. Which is over the legal limit at this time he is intoxicated he does not know how he is going to get home. Patient was observed walking with a steady gait in department unassisted, vital signs are within normal limits prior to being released, is alert and oriented x4. Patient did receive 1 L normal saline prior to discharge and Zofran 4 mg IV push. Patient is aware of his condition and understands that I cannot rule out intra-abdominal pathology at this time without CT, verbalizes understanding. Patient requesting to leave AMA. Discussed risks and benefits with patient. Patient verbalizes understanding of situation and the risks of leaving including worsening condition, developing disability, including but not limited to .Discussed results of labs and imaging, if they were performed and recommendations for further treatment and/or observation. The patient verbalizes understanding of the results discussed. Every effort was made to involve family if appropriate and situation discussed. At this time patient has opted to leave against medical advice. Patient is alert and oriented and has the capacity to make own decisions. HPI General Mode of arrival: EMS. Date/Time Provider Initiated Documentation: 09/29/19 17:54. Limitations to Documentation: altered mental status (Patient endorses 2 beers prior to arrival). Information obtained by: patient and EMS. HPI Narrative: 59-year-old male appears intoxicated presents to the ER with generalized abdominal pain which worsened over the last 2 days. Associated with dry heaves, subjective fever and chills, dysuria, urinary hesitancy, and diarrhea. Patient last urinated approximately 20 minutes prior to arrival. He denies any dark stools or hematochezia. He does report blood-streaked vomitus. He is staying at a motel at this time in [place], patient endorses 2 beers prior to arrival, he is a smoker, and endorses marijuana use as well. He does have a past medical history of hypertension, hyperlipidemia, myocardial infarction, pancreatic cancer, and pancreatitis. He reports not having a primary care provider at this time. He was seen here August 11, 2023 for Librium and methadone overdose which he denies using at this time. Related Data Home Medications Medication Instructions Recorded Confirmed Unknown [No Known Home Meds] 06/02/19 09/29/19 Allergies Allergy/AdvReac Type Severity Reaction Status Date / Time Penicillins Allergy Unverified 09/29/19 17:52 General Stated Complaint: Abd Prob DMITRI: 3 Review of Systems Narrative: Constitutional: Negative for weight loss, appears intoxicated, somewhat disheveled, normal body habitus, appears comfortable. HEENT: Denies trauma, headaches, blurry vision, nasal discharge, sore throat, trouble swallowing. Chest: Denies chest pain, palpitations, irregular rhythm, Respiratory: Denies Shortness of breath, cough, hemoptysis. GI: Denies constipation. Reports abdominal pain, nausea vomiting and diarrhea. : Denies hematuria, flank pain, rectal bleeding. Neuro: Denies dizziness, blurry vision, weakness, syncope, headache or facial numbness. Hematologic: Denies easy bruising, intolerance to heat or cold, hair loss. [facility] Medical History HTN (hypertension) (Chronic) Hx of hyperlipidemia (Acute) Myocardial infarction (Chronic) x 2 Pancreatic cancer (Acute) with h/o pancreatic stent Pancreatitis (Chronic) Social History Smoking/Tobacco Use Status: Current every day Tobacco Type: cigarettes Smoking packs per day: 1 Smoking cigarettes per day: 20.0 Alcohol Intake: current Alcohol Intake frequency: 3 or more drinks per day Alcohol type: beer and hard liquor Drug use: Occasionally Substance use type: marijuana and crack/cocaine Additional Social history: homeless- living at [facility] Exam Narrative Exam Narrative: Constitutional: Alert and oriented x3. Appears intoxicated. Appears older than stated age. Normal body habitus. Head: Normocephalic, no trauma. Eyes: Pupils PERRLA, Red reflex noted, EOM's intact. Eyelids symmetrical without lesions, discharge, or swelling. ENT: Bilateral TM's WNL, External ear normal to inspection, no mastoid TTP, swelling, or erythema, Nasal turbinates WNL, no nasal discharge. Normal dentition, Posterior pharynx WNL, no exudate. Chest: RRR, Normal S1, S2, distal pulses intact. Resp: Lungs clear to auscultation bilaterally, no wheezes, rales, or rhonchi. Abdomen: Soft, nondistended, tender to palpation generalized all 4 quadrants. Mild right CVA tenderness with palpation. Musculoskeletal: Normal gait, 5/5 strength to all four extremities. Skin: No suspicious rashes or lesions. Capillary refill less than 2 sec. Neurologic: Cranial nerves II-XII intact. Alert and oriented x 3. DTR's intact. Hematologic/Lymphatic: No ecchymosis, no lymphadenopathy. Course Vital Signs Vital signs: Vital Signs Temperature 35.5 C L 09/29/19 17:46 Pulse 100 H 09/29/19 17:46 Respiratory Rate 20 09/29/19 17:46 Pulse Oximetry 95 09/29/19 17:46 Temperature 35.5 C L 09/29/19 17:46 Temperature Source Skin 09/29/19 17:46 Pulse 100 H 09/29/19 17:46 Respiratory Rate 20 09/29/19 17:46 Respiratory Effort Non-Labored 09/29/19 17:53 Blood Pressure Position Supine 09/29/19 17:46 Pulse Oximetry 95 09/29/19 17:46 Oxygen Delivery Method Room Air 09/29/19 17:46 Oxygen Flow Rate 0 09/29/19 17:46 Pain Level 10 09/29/19 17:46
[2019-09-29] MEDS: Normal Saline Flush 10 ML SYR IVP (18:00)
[2019-09-29] MEDS: Normal Saline 1,000 ML 1000 ML IV (18:09)
[2019-09-29] MEDS: Ondansetron 4 MG/2 ML VIAL IVP (18:11)
[2019-09-29 18:15] LABS: Absolute Basophil Count 0.06 10^3/uL (0.0-0.2); Absolute Eosinophil Count 0.07 10^3/uL (0.0-0.7); Absolute Lymphocyte Count 2.73 10^3/uL (1.2-3.4); Absolute Monocyte Count 0.56 10^3/uL (0.1-0.8); Absolute Neutrophil Count 1.63 10^3/uL (1.2-6.7); Basophils % 1.2; Eosinophils % 1.4; HCT 41.8 % (40.0-50.0); HGB 13.9 g/dL (13.5-17.5); Lymphocytes % 54.1; MCH 31.4 pg (27.0-33.0); MCHC 33.3 % (32.0-36.0); MCV 94.6 fL (80-95); MPV 9.4 fL (8.0-11.0); Monocytes % 11.1; Neutrophils % 32.2; Nucleated RBC 0 %; Platelet Count 209 10^3/uL (130-400); RBC 4.42 10^6/uL (4.36-5.78); RDW 13.1 % (11.8-14.1); RDW-SD 45.7 fL; WBC 5.05 10^3/uL (4.4-10.8)
[2019-09-29 18:32] LABS: ALT 88 U/L (16-63); AST 106 U/L (15-37); Albumin 3.6 g/dL (3.4-5.0); Alkaline Phosphatase 64 U/L (46-116); Anion Gap 12.7 mmol/L (3-11); BUN 7 mg/dL (7-18); Bilirubin, Total 0.4 mg/dL (0.2-1.0); CO2 23.3 mmol/L (21.0-32.0); CREATININE 0.81 mg/dL (0.70-1.30); Calcium 8.4 mg/dL (8.5-10.1); Chloride 101 mmol/L (98-107); Glucose 147 mg/dL (74-106); Lipase 243 U/L (73-393); Magnesium 2.2 mg/dL (1.8-2.4); Potassium 3.6 mmol/L (3.5-5.1); Sodium 137 mmol/L (136-145); Total Protein 7.3 g/dL (6.4-8.2)
[2019-09-29 18:45] LABS: ETHANOL BLOOD 345.3 mg/dL (<3)
[2019-09-29 19:09] VITALS: BP 122/76; PULSE 90; RESP 16; TEMP 36.6; O2SAT 97
[2019-09-29 19:20] VITALS: BP 122/76; PULSE 90; RESP 16; TEMP 36.6; O2SAT 97
== END 2019-09-29 19:10 | disposition left against medical advice (07) ==
PROVIDERS: Emergency Provider Registered Nurse Emergency
DX: K92.0 Hematemesis (principal); C25.9 Malignant neoplasm of pancreas, unspecified; R10.9 Unspecified abdominal pain; Z53.29 Procedure and treatment not carried out because of patient's decision for other reasons; Y90.8 Blood alcohol level of 240 mg/100 ml or more; I10 Essential (primary) hypertension
CPT/HCPCS: 80053; 83690; 96361; 96374; 99284; 80320; 83735; 85025; J2405

== ENCOUNTER 2020-01-10 22:23 | Inpatient (IN) | payer MEDICAID, SELFPAY ==
[2020-01-10] VITALS (16 sets, daily range): BP systolic 134–172; BP diastolic 85–119; PULSE 105–139; RESP 16–30; TEMP 36.4–36.7; O2SAT 93–99
--- NOTE | 2020-01-10 01:18 | DI.CT_ITS ---
EXAM: CT ABDOMEN PELVIS W CLINICAL HISTORY: abdominal pain TECHNIQUE: Imaging Protocol: Axial computed tomography images with coronal and sagittal reformatted images were created and reviewed CONTRAST MATERIAL: Intravenous: Omnipaque 350 Contrast volume:93 Oral: Yes COMPARISON: CT CT CHEST/ABD/PEL W from 04/18/2019 FINDINGS: ABDOMEN: Lung Bases: Dependent atelectasis. Small hiatal hernia. Liver: Fatty infiltration of the liver. No measurable mass. Portal, Superior Mesenteric, and Splenic Veins: Unremarkable. Gallbladder and Biliary Tract: No radiodense calculus or dilation. Pancreas: There are calcifications seen in the pancreas. There is mild pancreatic atrophy. There is dilatation of the pancreatic duct up to 1.2 cm. There is infiltration in the peripancreatic soft ti ssues. Spleen: Normal. Adrenals: No masses seen. Kidneys: Normal size, contour and axis. No radiodense stones or obstructive uropathy. No masses seen. Abdominal Aorta: Abdominal portion non-dilated. Marked atherosclerosis. Bowel: No obstruction or bowel wall thickening. No evidence of acute appendicitis. Diverticulosis in the colon but no evidence of acute diverticulitis. Peritoneal Cavity: There is fluid adjacent to the tail of the pancreas. No pneumoperitoneum. Lymph Nodes: Within normal limits. Bones: Degenerative changes. Soft Tissues: Unremarkable. PELVIS: Bladder: Symmetric distention, no gross wall thickening. Reproductive Organs: Unremarkable as visualized. Lymph Nodes: Within normal limits. Bones: Degenerative changes. IMPRESSION: Findings most consistent with acute pancreatitis superimposed on chronic pancreatitis. RADIATION DOSE DELIVERED: 710.17mGy.cm Total DLP DATA REPOSITORY: All CT scans at this facility are submitted to the National Radiology Data Registry (NRDR) Dose Index Registry (DIR) with the [employer] (ACR). RADIATION OPTIMIZATION: All CT scans at this facility use at least one of these dose optimization te chniques: automated exposure control; mA and/or kV adjustment per patient size (includes targeted exa ms where dose is matched to clinical indication); or iterative reconstruction.
--- NOTE | 2020-01-10 22:15 | RT.EKG_ITS ---
APPROVED REPORT Exam: Resting ECG Patient Location: E HR:124 bpm ECG Measurements Heart Rate 124 AXIS MO 155 P 76 QRSd 73 QRS -6 QT 322 T -3 QTc 463 Conclusion Sinus tachycardia...rate> 99 Probable left atrial enlargement...P >50mS, <-0.10mV V1 Low voltage, extremity leads...all extremity leads <0.5mV No STEMI
[2020-01-10] MEDS: HYDROmorphone 2 MG/ML VIAL 1 MG IVP ×2 (22:50→23:32)
[2020-01-10] MEDS: Lactated Ringers 1,000 ML 1000 ML IV (22:51)
[2020-01-10] MEDS: Ondansetron 4 MG/2 ML VIAL IVP (22:51)
[2020-01-10 22:59] LABS: Abs Immature Grans 0.05 10^3/uL (0.0-0.06); Absolute Basophil Count 0.02 10^3/uL (0.0-0.2); Absolute Eosinophil Count 0.23 10^3/uL (0.0-0.7); Absolute Monocyte Count 0.59 10^3/uL (0.1-0.8); Absolute Neutrophil Count 8.43 10^3/uL (1.2-6.7); Basophils % 0.2; Eosinophils % 2.4; HCT 46.2 % (40.0-50.0); HGB 16.3 g/dL (13.5-17.5); Immature Grans % 0.5; Lymphocytes % 3.1; MCH 32.9 pg (27.0-33.0); MCHC 35.3 % (32.0-36.0); MCV 93.1 fL (80-95); MPV 9.4 fL (8.0-11.0); Monocytes % 6.1; Neutrophils % 87.7; Nucleated RBC 0 %; Platelet Count 150 10^3/uL (130-400); RBC 4.96 10^6/uL (4.36-5.78); RDW 13.6 % (11.8-14.1); WBC 9.62 10^3/uL (4.4-10.8)
[2020-01-10 23:16] LABS: ALT 31 U/L (16-63); AST 39 U/L (15-37); Albumin 3.2 g/dL (3.4-5.0); Alkaline Phosphatase 137 U/L (46-116); Anion Gap 14.3 mmol/L (3-11); BUN 4 mg/dL (7-18); Bilirubin, Total 1.5 mg/dL (0.2-1.0); CO2 24.7 mmol/L (21.0-32.0); CREATININE 1.25 mg/dL (0.70-1.30); Calcium 8.6 mg/dL (8.5-10.1); Chloride 96 mmol/L (98-107); Estimated GFR 58.92 (mL/min/1.73m2); Glucose 182 mg/dL (74-106); Lipase 774 U/L (73-393); Magnesium 1.3 mg/dL (1.8-2.4); Potassium 3.8 mmol/L (3.5-5.1); Sodium 135 mmol/L (136-145); Total Protein 7.5 g/dL (6.4-8.2)
--- NOTE | 2020-01-10 23:25 | ED.GENADUL_ITS ---
Discharge Plan Disposition Patient Disposition: [facility] INPATIENT Condition: Poor Discharge Details Clinical Impression: Acute on chronic pancreatitis, Alcoholism /alcohol abuse Primary Care Provider: None,None ED Provider: Jose Luis Zhong Home Meds and New Rx's Prescriptions: No Action No Known Home Meds RF: 0 Medical Decision Making <Krupa Regalado, MANUFACTURING FINANCE MANAGER - Last Filed: 01/10/20 23:49> Patient presents by EMS with acute abdominal pain nausea and vomiting history of pancreatitis with recent alcohol use He is tachycardic and hypertensive On arrival he is receiving acetaminophen IV infusion. A second IV is established he is bolused with lactated Ringer's 1 L. He was given Zofran 4 mg IV push Dilaudid 1 mg IV push. CBC CMP lactate lipase are drawn. Lactate is elevated at 7.0 we will repeat in 4 hours after bolus. Lipase is elevated at 770. White count normal at 9.6. Acute kidney injury with creatinine of 1.25 is likely prerenal due to dehydration. He will be given thiamine 100 mg IV piggyback Protonix 40 mg IV push Dilaudid 1 mg is repeated. He was given 1 mg IV Ativan. Magnesium level 1.3 which will be repleted with [address] scan of the abdomen and pelvis with contrast is pending at time of shift change. Report and care of patient is signed out to Dr. Zhong for final disposition and diagnoses Medical Records Medical records reviewed: Yes I reviewed the patient's medical records. Lab Data Lab results reviewed: Yes I reviewed the patient's lab results. Lab results narrative: Laboratory Tests Range/Units 01/10/20 01/10/20 01/10/20 22:45 22:45 22:45 WBC (4.4-10.8) 10^3/uL 9.62 RBC (4.36-5.78) 10^6/uL 4.96 Hgb (13.5-17.5) g/dL 16.3 Hct (40.0-50.0) % 46.2 MCV (80-95) fL 93.1 MCH (27.0-33.0) pg 32.9 MCHC (32.0-36.0) % 35.3 RDW (11.8-14.1) % 13.6 Plt Count (130-400) 10^3/uL 150 MPV (8.0-11.0) fL 9.4 Immature Gran % 0.5 Neutrophils % 87.7 Lymphocytes % 3.1 Monocytes % 6.1 Eosinophils % 2.4 Basophils % 0.2 Nucleated RBC % % 0 Absolute Neutrophils (1.2-6.7) 10^3/uL 8.43 H Absolute Lymphocytes (1.2-3.4) 10^3/uL 0.30 L Absolute Monocytes (0.1-0.8) 10^3/uL 0.59 Absolute Eosinophils (0.0-0.7) 10^3/uL 0.23 Absolute Basophils (0.0-0.2) 10^3/uL 0.02 VBG Lactate (0.6-1.4) mmol/L 7.0 H* Sodium (136-145) mmol/L 135 L Potassium (3.5-5.1) mmol/L 3.8 Chloride (98-107) mmol/L 96 L Carbon Dioxide (21.0-32.0) mmol/L 24.7 Anion Gap (3-11) mmol/L 14.3 H BUN (7-18) mg/dL 4 L Creatinine (0.70-1.30) mg/dL 1.25 Estimated GFR/1.73 m2 (mL/min/1.73m2) 58.92 Glucose (74-106) mg/dL 182 H Calcium (8.5-10.1) mg/dL 8.6 Magnesium (1.8-2.4) mg/dL 1.3 L Total Bilirubin (0.2-1.0) mg/dL 1.5 H AST (15-37) U/L 39 H ALT (16-63) U/L 31 Alkaline Phosphatase (46-116) U/L 137 H Total Protein (6.4-8.2) g/dL 7.5 Albumin (3.4-5.0) g/dL 3.2 L Lipase (73-393) U/L 774 H <Jose Luis Zhong MD - Last Filed: 01/11/20 01:47> Patient signed out to me pending CT scan. He had presented with abdominal pain, vomiting, tachycardia likely pancreatitis which he has had previously. Continues to consume alcohol beverages. None since yesterday when he started getting sick. CT scan does show acute on chronic pancreatitis. Heart rate better with fluids, pain medication and lorazepam. Repeat lactate pending at 3 am after fluids. Case discussed with hospitalist for admission. Lab Data Lab results reviewed: Yes I reviewed the patient's lab results. ECG Data Attestation: I personally reviewed and interpreted this ECG (s) as follows: Interpretation: see EKG HPI <Krupa Regalado NP - Last Filed: 01/10/20 23:49> General Mode of arrival: EMS . Date/Time Provider Initiated Documentation: 01/10/20 22:40 . Limitations to Documentation: no limitations . Information obtained by: patient . HPI Narrative: Patient presents with a 1 day history of abdominal pain nausea and vomiting. Has had similar history with previous episodes of pancreatitis. Did drink alcohol yesterday. Denies fever cough shortness of breath. He did have some substernal chest pain but also has generalized abdominal pain distention and constipation. He reports he has not had a bowel movement for 3 days and is not passing flatus Related Data Home Medications Medication Instructions Recorded Confirmed Unknown [No Known Home Meds] 06/02/19 09/29/19 Allergies Allergy/AdvReac Type Severity Reaction Status Date / Time Penicillins Allergy Unverified 09/29/19 17:52 General Stated Complaint: Abd Prob DMITRI: 2 Review of Systems <Krupa Regalado NP - Last Filed: 01/10/20 23:49> All systems reviewed & are unremarkable except as noted in HPI and below Constitutional Constitutional: Reports anorexia, Denies fever(s) and Reports poor appetite Cardiovascular Cardiovascular: Reports chest pain and Denies dyspnea Respiratory Respiratory: Denies cough, Denies dyspnea and Denies wheezing Gastrointestinal Gastrointestinal: Reports abdominal pain, Reports constipation, Denies diarrhea, Reports nausea and Reports vomiting Genitourinary Genitourinary: Denies difficulty urinating Musculoskeletal Musculoskeletal: Denies arthralgias Integumentary/Breasts Skin/Breast: Denies lesions, Denies rash and Denies sores Allergic/Immunologic Allergic/Immunologic: Denies wheezing PFSH <Krupa Regalado NP - Last Filed: 01/10/20 23:49> Medical History (Updated 01/11/20 @ 01:47 by Jose Luis Zhong MD) HTN (hypertension) Hx of hyperlipidemia Myocardial infarction x 2 Pancreatic cancer with h/o pancreatic stent Pancreatitis Social History Smoking/Tobacco Use Status: Current every day Tobacco Type: cigarettes Smoking packs per day: 1 Smoking cigarettes per day: 20.0 Smoking risk assessment performed?: Yes Alcohol Intake: current Alcohol Intake frequency: 3 or more drinks per day Alcohol type: beer and hard liquor Drug use: Never Substance use type: marijuana and crack/cocaine Details: drank yesterday Do you feel safe at home: Yes Do you feel safe in your relationship?: Yes Additional Social history: [facility]- [facility] Exam <Krupa Regalado NP - Last Filed: 01/10/20 23:49> Const General: cooperative, disheveled, frail appearing and ill appearing chronically Nutritional Appearance: thin Orientation: alert, awake and oriented x3 HENMT Head: normal to inspection, normocephalic and atraumatic Mouth: oral mucosae normal Resp Effort & Inspection: normal respiratory effort Cardio Rate: regular rate and tachycardic Rhythm: regular rhythm GI Inspection: distended Palpation: tender in the LLQ, in the RLQ, in the LUQ and in the RUQ Auscultation: hypoactive bowel sounds Skin General skin exam: other (tattoos ) Course <Krupa Regalado NP - Last Filed: 01/10/20 23:49> Vital Signs Vital signs: Vital Signs Temperature 36.4 C L 01/10/20 22:26 Pulse 130 H 01/10/20 22:26 Respiratory Rate 25 H 01/10/20 22:26 Blood Pressure 162/119 H 01/10/20 22:26 Pulse Oximetry 99 01/10/20 22:26 Temperature 36.4 C L 01/10/20 22:26 Temperature Source Tympanic 01/10/20 22:26 Pulse 130 H 01/10/20 22:26 Respiratory Rate 25 H 01/10/20 22:26 Respiratory Effort Incrsd Work of Breathing 01/10/20 22:53 Blood Pressure 162/119 H 01/10/20 22:26 Pulse Oximetry 99 01/10/20 22:26 Oxygen Delivery Method Room Air 01/10/20 22:26 Oxygen Flow Rate 0 01/10/20 22:26 Pain Level 10 01/10/20 23:19 Lab/Test Results Lab/Test Results: Laboratory Tests Range/Units 01/10/20 01/10/20 01/10/20 22:45 22:45 22:45 WBC (4.4-10.8) 10^3/uL 9.62 RBC (4.36-5.78) 10^6/uL 4.96 Hgb (13.5-17.5) g/dL 16.3 Hct (40.0-50.0) % 46.2 MCV (80-95) fL 93.1 MCH (27.0-33.0) pg 32.9 MCHC (32.0-36.0) % 35.3 RDW (11.8-14.1) % 13.6 Plt Count (130-400) 10^3/uL 150 MPV (8.0-11.0) fL 9.4 Immature Gran % 0.5 Neutrophils % 87.7 Lymphocytes % 3.1 Monocytes % 6.1 Eosinophils % 2.4 Basophils % 0.2 Nucleated RBC % % 0 Absolute Neutrophils (1.2-6.7) 10^3/uL 8.43 H Absolute Lymphocytes (1.2-3.4) 10^3/uL 0.30 L Absolute Monocytes (0.1-0.8) 10^3/uL 0.59 Absolute Eosinophils (0.0-0.7) 10^3/uL 0.23 Absolute Basophils (0.0-0.2) 10^3/uL 0.02 VBG Lactate (0.6-1.4) mmol/L 7.0 H* Sodium (136-145) mmol/L 135 L Potassium (3.5-5.1) mmol/L 3.8 Chloride (98-107) mmol/L 96 L Carbon Dioxide (21.0-32.0) mmol/L 24.7 Anion Gap (3-11) mmol/L 14.3 H BUN (7-18) mg/dL 4 L Creatinine (0.70-1.30) mg/dL 1.25 Estimated GFR/1.73 m2 (mL/min/1.73m2) 58.92 Glucose (74-106) mg/dL 182 H Calcium (8.5-10.1) mg/dL 8.6 Magnesium (1.8-2.4) mg/dL 1.3 L Total Bilirubin (0.2-1.0) mg/dL 1.5 H AST (15-37) U/L 39 H ALT (16-63) U/L 31 Alkaline Phosphatase (46-116) U/L 137 H Total Protein (6.4-8.2) g/dL 7.5 Albumin (3.4-5.0) g/dL 3.2 L Lipase (73-393) U/L 774 H Sign Out <Krupa Regalado NP - Last Filed: 01/10/20 23:49> Sign Out Data: Sign Out Comment: Patient with history of alcohol use and pancreatitis presents by EMS with a 1 day history of severe abdominal pain nausea vomiting. His symptoms are most consistent with acute pancreatitis does have elevated lactic acid at 7.0. And lipase at 770. He has been given antiemetics and Dilaudid and Ativan Protonix IV thiamine and is awaiting CT scan of the abdomen and pelvis. Case has been discussed with final diagnosis and disposition. Last updated by Krupa Regalado NP at 01/10/20 23:45
[2020-01-10] MEDS: LORazepam 2 MG/ML VIAL 1 MG IVP (23:44)
[2020-01-10] MEDS: Pantoprazole 40 MG VIAL IVP (23:46)
[2020-01-10] MEDS: THIAMINE 100 MG in Normal Saline 100 ML 200 MG IVPB (23:48)
[2020-01-11] VITALS (106 sets, daily range): BP systolic 112–175; BP diastolic 65–104; PULSE 79–134; RESP 9–34; TEMP 36.4–38.5; O2SAT 89–100
[2020-01-11] MEDS: Lactated Ringers 1,000 ML 200 ML IV ×2 (00:13→05:23)
[2020-01-11] MEDS: MAGNESIUM SULFATE 4 GM/100 ML BAG IVPB (00:17)
[2020-01-11] MEDS: Breeza Beverage 473 ML BTL PO ×2 (01:06→01:15)
[2020-01-11] MEDS: Normal Saline Flush 10 ML SYR IVP ×4 (01:15→11:51)
[2020-01-11] MEDS: Omnipaque 350 MG/ML 50 ML BTL IJ (01:15)
[2020-01-11] MEDS: Omnipaque 350 MG/ML 100 ML BTL IJ (01:16)
[2020-01-11] MEDS: Normal Saline - Diluent 50 ML VIAL IV (01:16)
--- NOTE | 2020-01-11 01:22 | DI.VRAD_ITS ---
PROCEDURE INFORMATION: Exam: CT Abdomen And Pelvis With Contrast Exam date and time: 01/10/2020 12:58 AM Age: 59 years old Clinical indication: Abdominal pain; Generalized TECHNIQUE: Imaging protocol: Computed tomography of the abdomen and pelvis with intravenous contrast. Radiation optimization: All CT scans at this facility use at least one of these dose optimization techniques: automated exposure control; mA and/or kV adjustment per patient size (includes targeted exams where dose is matched to clinical indication); or iterative reconstruction. Contrast material: [id number]; Contrast volume: 93 ml; Contrast route: INTRAVENOUS (IV); Other contrast: Oral, [id number] with breeza beverage, 50; COMPARISON: CT CHEST/ABD/PEL W 04/18/2019 3:17 PM FINDINGS: Lungs: Contrast is seen within the esophagus consistent with gastroesophageal reflux.There is minimal bibasilar atelectasis. Pleural space: There is no evidence of pneumothorax. There are no pleural effusions present. Heart: The cardiac structures are normal. Liver: There is a diffuse decrease in hepatic parenchymal density, consistent with moderate fatty infiltration. Gallbladder and bile ducts: Normal. No calcified stones. No ductal dilation. Pancreas: There is dilation of the pancreatic duct measuring 12 mm. There is calcification seen within the head of the pancreas.There is diffuse peripancreatic inflammatory stranding and fluid, consistent with acute superimposed on chronic pancreatitis. Spleen: The spleen is normal. Adrenal glands: The adrenal glands are normal. Kidneys and ureters: The kidneys are normal. Stomach and bowel: Mild diverticulosis is present in the sigmoid and descending colon. No evidence of diverticulitis. Appendix: There is no evidence of appendicitis. Intraperitoneal space: There is no free intraperitoneal air. There is no evidence of free intraperitoneal or pelvic fluid. Vasculature: Moderate to severe atherosclerosis of the abdominal aorta and iliac arteries. The portal, mesenteric and splenic veins are patent.The inferior venacava appears normal. Lymph nodes: There is no evidence of lymphadenopathy. Urinary bladder: The bladder is moderately distended. Reproductive: The prostate gland and seminal vesicles are normal. Bones/joints: The skeletal structures and soft tissues show no evidence of fracture or other acute processes. Soft tissues: The extra-abdominal soft tissues are normal. IMPRESSION: There is dilation of the pancreatic duct measuring 12 mm. There is calcification seen within the head of the pancreas.There is diffuse peripancreatic inflammatory stranding and fluid, consistent with acute superimposed on chronic pancreatitis. Dictated and Authenticated by: Carlos King MD. Ordering:JOVAN Gentile MD
--- NOTE | 2020-01-11 01:55 | HPE_ITS ---
Date of service: 01/11/20 Time of Service: 01:55 Assessment and Plan Assessment and plan (1) Pancreatitis: Status: Chronic Assessment and plan: Alcoholic pancreatitis. Will continue hydration, pain meds , bowel rest and track counts. Alcohol: will give banana bag, scheduled Librium and prn Ativan per CIWA, will add low dose beta stephen for tachycardia. History of Present Illness History of Present Illness Chief Complaint: abdominal pain Narrative: 59 male alcoholic, comes in with several days of abdominal pain. Last drink earlier this evening. In ER findings of note for normal white count and calcium, Lipase [address] showing signs of acute (on chronic) pancreatitis. Mag also noted low and has received supplement. Dilaudid for pain has been helping but requests another dose. Reports unspecified withdrawal symptoms from EtOH. Has gotten 1 mg Ativan. Admitted for further management. Review of Systems All systems reviewed & are unremarkable except as noted in HPI and below PFSH Medical History (Updated 01/11/20 @ 02:02 by Alejo Larson MD) HTN (hypertension) Hx of hyperlipidemia Myocardial infarction x 2 Pancreatic cancer with h/o pancreatic stent Pancreatitis Social History Smoking/Tobacco Use Status: Current every day Tobacco Type: cigarettes Smoking packs per day: 1 Smoking cigarettes per day: 20.0 Smoking risk assessment performed?: Yes Alcohol Intake: current Alcohol Intake frequency: 3 or more drinks per day Alcohol type: beer and hard liquor Drug use: Never Substance use type: marijuana and crack/cocaine Details: drank yesterday Do you feel safe at home: Yes Do you feel safe in your relationship?: Yes Additional Social history: homeless- living at [facility] Home Medications and Allergies Home Medications Medication Instructions Recorded Confirmed Type Unknown [No Known Home Meds] 06/02/19 09/29/19 History Allergies Allergy/AdvReac Type Severity Reaction Status Date / Time Penicillins Allergy Unverified 09/29/19 17:52 Exam Narrative Exam Narrative: 134/85, 105, 36.7, 16, 93 % RA. HEENT anicteric, neck supple; lungs clear, heart tachy/regular, abdomen +BS, mild diffuse tenderness w/o rebound; neuro Ox3, tremulous, nonfocal Results Labs Result diagrams: 01/10/20 22:45 01/10/20 22:45 Labs: Laboratory Results - last 24 hr 01/10/20 01/10/20 01/10/20 22:45 22:45 22:45 WBC 9.62 RBC 4.96 Hgb 16.3 Hct 46.2 MCV 93.1 MCH 32.9 MCHC 35.3 RDW 13.6 Plt Count 150 MPV 9.4 Immature Gran % 0.5 Neutrophils % 87.7 Lymphocytes % 3.1 Monocytes % 6.1 Eosinophils % 2.4 Basophils % 0.2 Nucleated RBC % 0 Absolute Neutrophils 8.43 H Absolute Lymphocytes 0.30 L Absolute Monocytes 0.59 Absolute Eosinophils 0.23 Absolute Basophils 0.02 VBG Lactate 7.0 H* Sodium 135 L Potassium 3.8 Chloride 96 L Carbon Dioxide 24.7 Anion Gap 14.3 H BUN 4 L Creatinine 1.25 Estimated GFR/1.73 m2 58.92 Glucose 182 H Calcium 8.6 Magnesium 1.3 L Total Bilirubin 1.5 H AST 39 H ALT 31 Alkaline Phosphatase 137 H Total Protein 7.5 Albumin 3.2 L Lipase 774 H Last Vital Signs Temp 36.7 C 01/10/20 23:59 Pulse 105 H 01/10/20 23:59 Resp 16 01/10/20 23:59 BP 134/85 01/10/20 23:59 Pulse Ox 93 01/10/20 23:59 COVID-19 Screening Have you, or household traveled for leisure in last 14 days?: No Had IN PERSON contact w/suspected or confirmed C-19 person: No
[2020-01-11] MEDS: HYDROmorphone 2 MG/ML VIAL IVP ×5 (02:44→22:37)
[2020-01-11] MEDS: Metoprolol 12.5 MG TAB PO (02:46)
[2020-01-11] MEDS: LORazepam 2 MG/ML VIAL 1 MG IVP (02:46)
[2020-01-11] MEDS: chlordiazePOXIDE 25 MG CAP PO ×2 (02:53→10:18)
[2020-01-11] MEDS: Folic Acid 1 MG TAB PO (02:53)
[2020-01-11 06:49] LABS: Lactate 2.3 mmol/L (0.6-1.4)
[2020-01-11 06:57] LABS: Anion Gap 8.8 mmol/L (3-11); BUN 5 mg/dL (7-18); CO2 30.2 mmol/L (21.0-32.0); CREATININE 0.98 mg/dL (0.70-1.30); Calcium 8.2 mg/dL (8.5-10.1); Chloride 97 mmol/L (98-107); Glucose 114 mg/dL (74-106); Potassium 4.3 mmol/L (3.5-5.1); Sodium 136 mmol/L (136-145)
[2020-01-11 07:11] LABS: HCT 41.3 % (40.0-50.0); HGB 14.3 g/dL (13.5-17.5); MCH 33.3 pg (27.0-33.0); MCHC 34.6 % (32.0-36.0); MCV 96.3 fL (80-95); MPV 9.6 fL (8.0-11.0); Platelet Count 142 10^3/uL (130-400); RBC 4.29 10^6/uL (4.36-5.78); RDW 13.9 % (11.8-14.1); RDW-SD 49.4 fL; WBC 7.32 10^3/uL (4.4-10.8)
--- NOTE | 2020-01-11 08:29 | PGE_ITS ---
Date of Service Date of service: 01/11/20 Time of Service: Assessment and Plan Assessment and plan (1) Alcohol withdrawal: Status: Acute Assessment and plan: Plan to switch to phenobarbital at the time of the next dose of librium, depending on respiratory status. Will avoid co- administering them. Continue banana bag. Keep in ICU. (2) Acute alcoholic pancreatitis: Status: Acute Assessment and plan: Keep in NPO status with IVF (3) Person under investigation for COVID-19: Status: Acute Assessment and plan: New fever, dry cough, shortness of breath. Upgrade level of precautions. Check CXR/UA, blood cultures. Monitor resp. status. (4) Fever: Status: Acute Assessment and plan: Could be due to pancreatitis. However, need to rule out UTI and PNA. Await UA/CXR. Additionally, PUI for COVID-19. (5) Urinary retention: Status: Acute Assessment and plan: s/p sharp. Start flomax. voiding trial in 3 days (6) DVT prophylaxis: Status: Acute Assessment and plan: lovenox SC (7) Discharge planning issues: Status: Acute Assessment and plan: Full code Keep in ICU. Total Critical Care Time 60 minutes. Subjective Subjective Interval history since last seen: Pain 5-8/10 in the abdomen. The pain is in 2 different places - epigastric and suprapubic. The suprapubic pain was worse, prior to sharp placement. CIWA 15 now. Febrile to 38.5. Denies dizziness, chest pain, endorses shortness of breath, dry cough. Denies contact with known covid-19 patients. Not requiring oxygen. Endorses nausea, but no vomiting. Got dilaudid for pain. No vomiting. no BM x 3 days. NPO except meds. Retaining urine >1 L. Exam Narrative Exam Narrative: General: middle-aged male, who is anxious and tremulous, somnolent and falls asleep multiple times throughout my conversation with him HEENT: EOMI, dry MM Heart: RRR, tachycardic, no murmur Lungs: coarse breath sounds B Abdomen: soft, tender in epigastrium and in suprapubic region. Extremities: no edema BLE's. Objective Last Vital Signs Temp 36.7 C 01/11/20 03:35 Pulse 101 H 01/11/20 03:35 Resp 10 L 01/11/20 07:40 BP 126/90 01/11/20 03:35 Pulse Ox 95 01/11/20 07:30 Laboratory Results - last 24 hr 01/10/20 01/10/20 01/10/20 22:45 22:45 22:45 WBC 9.62 RBC 4.96 Hgb 16.3 Hct 46.2 MCV 93.1 MCH 32.9 MCHC 35.3 RDW 13.6 Plt Count 150 MPV 9.4 Immature Gran % 0.5 Neutrophils % 87.7 Lymphocytes % 3.1 Monocytes % 6.1 Eosinophils % 2.4 Basophils % 0.2 Nucleated RBC % 0 Absolute Neutrophils 8.43 H Absolute Lymphocytes 0.30 L Absolute Monocytes 0.59 Absolute Eosinophils 0.23 Absolute Basophils 0.02 VBG Lactate 7.0 H* Sodium 135 L Potassium 3.8 Chloride 96 L Carbon Dioxide 24.7 Anion Gap 14.3 H BUN 4 L Creatinine 1.25 Estimated GFR/1.73 m2 58.92 Glucose 182 H Calcium 8.6 Magnesium 1.3 L Total Bilirubin 1.5 H AST 39 H ALT 31 Alkaline Phosphatase 137 H Total Protein 7.5 Albumin 3.2 L Lipase 774 H 01/11/20 01/11/20 01/11/20 03:00 06:28 06:28 WBC 7.32 RBC 4.29 L Hgb 14.3 Hct 41.3 MCV 96.3 H D MCH 33.3 H MCHC 34.6 RDW 13.9 Plt Count 142 MPV 9.6 Immature Gran % Neutrophils % Lymphocytes % Monocytes % Eosinophils % Basophils % Nucleated RBC % Absolute Neutrophils Absolute Lymphocytes Absolute Monocytes Absolute Eosinophils Absolute Basophils VBG Lactate Cancelled Sodium 136 Potassium 4.3 Chloride 97 L Carbon Dioxide 30.2 Anion Gap 8.8 BUN 5 L Creatinine 0.98 Estimated GFR/1.73 m2 >= 60.00 Glucose 114 H Calcium 8.2 L Magnesium Total Bilirubin AST ALT Alkaline Phosphatase Total Protein Albumin Lipase 01/11/20 06:28 WBC RBC Hgb Hct MCV MCH MCHC RDW Plt Count MPV Immature Gran % Neutrophils % Lymphocytes % Monocytes % Eosinophils % Basophils % Nucleated RBC % Absolute Neutrophils Absolute Lymphocytes Absolute Monocytes Absolute Eosinophils Absolute Basophils VBG Lactate 2.3 H* Sodium Potassium Chloride Carbon Dioxide Anion Gap BUN Creatinine Estimated GFR/1.73 m2 Glucose Calcium Magnesium Total Bilirubin AST ALT Alkaline Phosphatase Total Protein Albumin Lipase
[2020-01-11 08:36] LABS: Magnesium 2.8 mg/dL (1.8-2.4)
[2020-01-11] MEDS: Pantoprazole 40 MG VIAL IVP (10:15)
[2020-01-11] MEDS: Ondansetron 4 MG/2 ML VIAL IVP (10:16)
[2020-01-11] MEDS: Senna TAB 1 TAB PO ×2 (10:17→20:21)
[2020-01-11] MEDS: Docusate Sodium 100 MG CAP PO ×2 (10:17→20:21)
[2020-01-11] MEDS: Thiamine 100 MG TAB PO (10:17)
[2020-01-11] MEDS: Multivitamin TAB 1 TAB PO (10:18)
[2020-01-11 11:16] LABS: *AMPHETAMINES SCREEN URINE Negative (Negative); *BARBITURATES SCREEN URINE Negative (Negative); *BENZODIAZEPINES SCREEN URINE Negative (Negative); Cannabinoids THC POSITIVE (Negative); Cocaine Screen,Urine Negative (Negative); METHADONE URINE SCREEN Negative (Negative); OPIATES URINE SCREEN POSITIVE (Negative)
[2020-01-11 11:17] LABS: Tricyclic Antidepressants Negative (Negative)
--- NOTE | 2020-01-11 11:19 | INITIAL_ITS ---
- If Service Date Differs Date of service: 01/11/20 Time of Service: 11:19 Care Management Initial Assess REASON FOR HOSPITALIZATION:: Pancreatitis Alcohol withdrawal PAST MEDICAL HISTORY/PAST SURGICAL HISTORY:: HTN, Hyperlipidemia, OR x 2, Pancreatic cancer with stent PREVIOUS FUNCTIONAL STATUS/SOCIAL/FAMILY SUPPORTS:: Juan Jose lives alone in [facility], he states he is an alcoholic, he is estranged from his family. He does have a high school football coach Klarissa, CM will reach out to her. He uses [facility] for transportation CURRENT FUNCTIONAL STATUS:: Juan Jose is lying flat in the bed, he is shaking, he does engaged with CM, he complains of pain and requesting pain medication. CM will return to see patient and continue to torward disposition. He agrees for CM to reach out to high school football coach and discuss his admission. ADVANCE DIRECTIVES:: None on file CM will offer when medically more appropiate. 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 ANTICIPATED BARRIERS TO DISCHARGE:: Alcohol withdrawal TRANSPORTATION:: Via [facility] at discharge. PLAN:: Juan Jose will be discharged when medically ready. He is currently receiving IV fluids, and CIWA assessment with treatment for symptoms. CM has contacted high school football coach to notifiy of admission. CM faxed referral to [facility]. CM will continue to assess for discharge needs and coordinate disposition.
[2020-01-11] MEDS: Lidocaine 2% Jelly 11 ML SYR UR (11:32)
[2020-01-11] MEDS: LORazepam 2 MG/ML VIAL IVP (11:48)
[2020-01-11] MEDS: Acetaminophen 325 MG TAB 650 MG PO (11:49)
--- NOTE | 2020-01-11 12:33 | DI.RAD_ITS ---
EXAM: XR PORTABLE CHEST AP CLINICAL HISTORY: shortness of breath TECHNIQUE: 2D digital imaging was performed. COMPARISON: CR,XR XR PORTABLE CHEST AP from 06/02/2019 FINDINGS: MEDIASTINUM: Normal. HEART: Normal. PULMONARY VASCULATURE: Normal. LUNGS: Bilateral basilar infiltrates are present. PLEURAL SPACE: No pleural effusion or pneumothorax. BONE:Within normal limits for the patient's age. OTHER FINDINGS:There is poor inspiratory effort. IMPRESSION: Bilateral basilar infiltrates. This may represent atelectasis or pneumonia. Please correlate clinic ally. DATA REPOSITORY: RADIATION DOSE DELIVERED:
[2020-01-11 13:57] LABS: Bilirubin Negative (Negative); Blood Negative (Negative); Clarity Cloudy (Clear); Glucose Negative (Negative); Ketones Negative (Negative); Leukocyte Esterase Negative (Negative); Nitrite Negative (Negative); Specific Gravity 1.015 (1.005-1.025)
[2020-01-11 14:07] LABS: Bacteria Many HPF (Negative); Epithelial Cells Negative HPF (Negative); Other Cells Few Transitional (Negative); RBC 0-2 HPF (0-2); WBC 20-50 HPF (0-5)
[2020-01-11 14:08] LABS: C & S Indicated? C&S Done As Ordered; Casts Negative LPF (Negative); Crystals Negative HPF (Negative); Mucus Negative (Negative)
--- NOTE | 2020-01-11 14:12 | PHA.REVIEW ---
Pharmacy Admission Review - Admission Clinical Review (Last Reviewed 01/11/20 @ 02:00 by Alejo Larson MD) Discharge planning issues (Acute) DVT prophylaxis (Acute) Alcohol withdrawal (Acute) Fever (Acute) Urinary retention (Acute) Acute alcoholic pancreatitis (Acute) Person under investigation for COVID-19 (Acute) Alcoholism /alcohol abuse (Acute) Acute on chronic pancreatitis (Acute) Penicillins Allergy (Unverified 09/29/19 17:52) Height 5 ft 7 in Weight 67.3 kg - Renal Dosing Renal Dosing: BUN 5 mg/dL (7-18) L 01/11/20 06:28 Creatinine 0.98 mg/dL (0.70-1.30) 01/11/20 06:28 Medications needing adjustments: Reviewed (eCrCl 74ml/min) - Anticoagulation Anticoagulation: Hgb 14.3 g/dL (13.5-17.5) 01/11/20 06:28 Hct 41.3 % (40.0-50.0) 01/11/20 06:28 Plt Count 142 10^3/uL (130-400) 01/11/20 06:28 Creatinine 0.98 mg/dL (0.70-1.30) 01/11/20 06:28 DVT Prohphylaxis: Reviewed Medications: Enoxaparin - Opiate Usage Evaluate Pain Scale/Pains Meds: N/A - Relevant Labs Sodium 136 mmol/L (136-145) 01/11/20 06:28 Potassium 4.3 mmol/L (3.5-5.1) 01/11/20 06:28 Chloride 97 mmol/L (98-107) L 01/11/20 06:28 Magnesium 2.8 mg/dL (1.8-2.4) H 01/11/20 06:28 Electrolytes, C-Reactive P, ESR: Intervened (4 grams IV mag given in ED, with held Magnesium from banana bag order after consulting with ) - DM Control DM Control: Glucose 114 mg/dL (74-106) H 01/11/20 06:28 Insulin Dosing: N/A - Heart Failure/VA EF%, EDWINA's, B-Blockers, Diuretics: N/A - BP Control BP Control: Blood Pressure [Left Arm] 134/76 Blood Pressure 149/99 Blood Pressure 151/85 Blood Pressure 167/91 Blood Pressure 167/98 Blood Pressure 175/104 Blood Pressure 126/90 If elevated: Reviewed List meds needing interventions: periods of elevated readings related to withdrawal symptoms? will continue to monitor - Qtc Review If Elevated: N/A - IV to PO Switch IV Medications: Reviewed - Home Meds Home Med List reviewed: Reviewed - Current meds Current Medication Order Review: Reviewed - Comments Comments/Follow Ups: Possibly switching to phenobarbital, banana bag x1 then switch to NS, CXR reveals bilateral basilar infiltrates, tmax 38.5
[2020-01-11] MEDS: PHENobarbital 130 MG/ML VIAL IVP ×2 (15:07→20:22)
[2020-01-11] MEDS: Enoxaparin 40 MG/0.4 ML SYR SC (15:07)
[2020-01-11 16:12] LABS: COVID-19 RT-PCR UVMMC Result Negative (Negative)
[2020-01-11] MEDS: Normal Saline 1,000 ML 175 ML IV (16:20)
[2020-01-11] MEDS: levoFLOXacin 750 MG/150 ML BAG 100 MG IVPB (17:51)
[2020-01-11] MEDS: Tamsulosin 0.4 MG CAPCR PO (17:51)
[2020-01-12] VITALS (46 sets, daily range): BP systolic 97–168; BP diastolic 60–97; PULSE 83–141; RESP 11–32; TEMP 36.7–39.9; O2SAT 90–98
[2020-01-12] MEDS: Normal Saline 1,000 ML 175 ML IV (04:55)
[2020-01-12 07:08] LABS: Abs Immature Grans 0.02 10^3/uL (0.0-0.06); Absolute Basophil Count 0.01 10^3/uL (0.0-0.2); Absolute Eosinophil Count 0.01 10^3/uL (0.0-0.7); Absolute Lymphocyte Count 0.56 10^3/uL (1.2-3.4); Absolute Monocyte Count 0.39 10^3/uL (0.1-0.8); Absolute Neutrophil Count 3.57 10^3/uL (1.2-6.7); Basophils % 0.2; Eosinophils % 0.2; HCT 40.5 % (40.0-50.0); HGB 13.5 g/dL (13.5-17.5); Immature Grans % 0.4; Lymphocytes % 12.3; MCH 32.9 pg (27.0-33.0); MCHC 33.3 % (32.0-36.0); MCV 98.8 fL (80-95); MPV 10.1 fL (8.0-11.0); Monocytes % 8.6; Neutrophils % 78.3; Nucleated RBC 0 %; Platelet Count 123 10^3/uL (130-400); RDW 13.7 % (11.8-14.1); RDW-SD 49.8 fL; WBC 4.56 10^3/uL (4.4-10.8)
[2020-01-12 07:27] LABS: ALT 23 U/L (16-63); AST 49 U/L (15-37); Albumin 2.4 g/dL (3.4-5.0); Alkaline Phosphatase 118 U/L (46-116); Anion Gap 5.3 mmol/L (3-11); BUN 9 mg/dL (7-18); Bilirubin, Direct 0.84 mg/dL (0.00-0.20); Bilirubin, Total 1.6 mg/dL (0.2-1.0); C-Reactive Protein 24.61 mg/dL (0.0-0.3); CO2 25.7 mmol/L (21.0-32.0); CREATININE 0.94 mg/dL (0.70-1.30); Calcium 7.9 mg/dL (8.5-10.1); Chloride 101 mmol/L (98-107); Glucose 61 mg/dL (74-106); Magnesium 1.8 mg/dL (1.8-2.4); Potassium 3.9 mmol/L (3.5-5.1); Sodium 132 mmol/L (136-145); Total Protein 6.3 g/dL (6.4-8.2)
--- NOTE | 2020-01-12 08:23 | PGE_ITS ---
Date of Service Date of service: 01/12/20 Time of Service: 11:51 Assessment and Plan Assessment and plan (1) Alcohol withdrawal: Status: Acute Assessment and plan: Transitioned to phenobarbital yesterday afternoon. Since then, has generally done well, but did require a dose in the last hour. Keep in ICU. (2) Acute alcoholic pancreatitis: Status: Acute Assessment and plan: Continue aggressive IVF. Remains NPO. MRCP without evidence of stones, masses, pseudocysts, or abscesses. We will investigate whether the patient's report of being diagnosed with pancreatic cancer 2 years ago is accurate. Will obtain medical records. (3) Aspiration pneumonia: Status: Acute Assessment and plan: Continue levofloxacin (day 2). (4) Urinary retention: Status: Acute Assessment and plan: s/p sharp. Conitnue flomax. voiding trial in 2 days (5) COVID-19 ruled out by laboratory testing: Status: Ruled-out (6) DVT prophylaxis: Status: Acute Assessment and plan: lovenox SC (7) Discharge planning issues: Status: Acute Assessment and plan: Full code Keep in ICU. Total Critical Care Time 45 minutes. Subjective Subjective Interval history since last seen: Mr Colin is somnolent, but does answer questions. He endorses dizziness and nausea, but denies chest pain and shortness of breath. + abdominal pain. C/o epigastric pain to me and of LLQ pain to nursing. No BM yet. CIWA 10-2-3-3-2. It was 15 at 11 am, so he got another dose of phenobarbital. Overnight, got 1 dose of phenobarb. Doing better this am, was awake and appropriate, per nursing, but then was diaphoretic and withdrawing after MRI. Dark urine - [address], low 100s. Short bursts of SVT into 130s overnight. Exam Narrative Exam Narrative: General: middle-aged male, somnolent, arousable, falls promptly back asleep after answering each question. HEENT: EOMI, dry MM Heart: RRR, no m/r/g Lungs: Diminished breath sounds B anteriorly Abdomen: soft, tender in epigastrium Extremities: no edema BLE's. Objective Last Vital Signs Temp 37 C 01/12/20 04:00 Pulse 108 H 01/12/20 07:01 Resp 24 01/12/20 07:01 BP 162/83 H 01/12/20 07:01 Pulse Ox 93 01/12/20 07:01 Laboratory Results - last 24 hr 01/10/20 01/10/20 01/11/20 00:25 22:44 06:28 WBC RBC Hgb Hct MCV MCH MCHC RDW Plt Count MPV Immature Gran % Neutrophils % Lymphocytes % Monocytes % Eosinophils % Basophils % Nucleated RBC % Absolute Neutrophils Absolute Lymphocytes Absolute Monocytes Absolute Eosinophils Absolute Basophils Sodium 136 Potassium 4.3 Chloride 97 L Carbon Dioxide 30.2 Anion Gap 8.8 BUN 5 L Creatinine 0.98 Estimated GFR/1.73 m2 >= 60.00 Glucose 114 H Calcium 8.2 L Magnesium 2.8 H Total Bilirubin Conjugated Bilirubin AST ALT Alkaline Phosphatase C-Reactive Protein Total Protein Albumin Urine Color Cancelled Urine Clarity Cancelled Urine pH Cancelled Ur Specific [place] Cancelled Urine Protein Cancelled Urine Ketones Cancelled Urine Blood Cancelled Urine Nitrite Cancelled Urine Bilirubin Cancelled Urine Urobilinogen Cancelled Ur Leukocyte Esterase Cancelled Urine RBC Urine WBC Ur Epithelial Cells Urine Crystals Urine Bacteria Urine Casts Urine Mucus Urine Other Ur Culture Indicated? Urine Glucose Cancelled Urine Opiates Screen Urine Methadone Screen Ur Barbiturates Screen Ur Tricyclics Screen Ur Amphetamines Screen U Benzodiazepines Scrn Urine Cocaine Screen Ur THC Screen COVID-19 PCR Negative Nasopharyn COVID-19 PCR Not Applicable Ref Test Perform Site [facility] 01/11/20 01/11/20 01/12/20 10:30 10:30 06:45 WBC RBC Hgb Hct MCV MCH MCHC RDW Plt Count MPV Immature Gran % Neutrophils % Lymphocytes % Monocytes % Eosinophils % Basophils % Nucleated RBC % Absolute Neutrophils Absolute Lymphocytes Absolute Monocytes Absolute Eosinophils Absolute Basophils Sodium 132 L Potassium 3.9 Chloride 101 Carbon Dioxide 25.7 Anion Gap 5.3 BUN 9 Creatinine 0.94 Estimated GFR/1.73 m2 >= 60.00 Glucose 61 L D Calcium 7.9 L Magnesium 1.8 Total Bilirubin 1.6 H Conjugated Bilirubin 0.84 H AST 49 H ALT 23 Alkaline Phosphatase 118 H C-Reactive Protein 24.61 H Total Protein 6.3 L Albumin 2.4 L Urine Color Yellow Urine Clarity Cloudy Urine pH 7.0 Ur Specific [place] 1.015 Urine Protein Negative Urine Ketones Negative Urine Blood Negative Urine Nitrite Negative Urine Bilirubin Negative Urine Urobilinogen 1.0 H Ur Leukocyte Esterase Negative Urine RBC 0-2 Urine WBC 20-50 H Ur Epithelial Cells Negative Urine Crystals Negative Urine Bacteria Many Urine Casts Negative Urine Mucus Negative Urine Other Few transitional Ur Culture Indicated? C&s done as ordered Urine Glucose Negative Urine Opiates Screen Positive A Urine Methadone Screen Negative Ur Barbiturates Screen Negative Ur Tricyclics Screen Negative Ur Amphetamines Screen Negative U Benzodiazepines Scrn Negative Urine Cocaine Screen Negative Ur THC Screen Positive A COVID-19 PCR Nasopharyn COVID-19 PCR Ref Test Perform Site 01/12/20 06:45 WBC 4.56 D RBC 4.10 L Hgb 13.5 Hct 40.5 MCV 98.8 H MCH 32.9 MCHC 33.3 RDW 13.7 Plt Count 123 L MPV 10.1 Immature Gran % 0.4 Neutrophils % 78.3 Lymphocytes % 12.3 Monocytes % 8.6 Eosinophils % 0.2 Basophils % 0.2 Nucleated RBC % 0 Absolute Neutrophils 3.57 Absolute Lymphocytes 0.56 L Absolute Monocytes 0.39 Absolute Eosinophils 0.01 Absolute Basophils 0.01 Sodium Potassium Chloride Carbon Dioxide Anion Gap BUN Creatinine Estimated GFR/1.73 m2 Glucose Calcium Magnesium Total Bilirubin Conjugated Bilirubin AST ALT Alkaline Phosphatase C-Reactive Protein Total Protein Albumin Urine Color Urine Clarity Urine pH Ur Specific [place] Urine Protein Urine Ketones Urine Blood Urine Nitrite Urine Bilirubin Urine Urobilinogen Ur Leukocyte Esterase Urine RBC Urine WBC Ur Epithelial Cells Urine Crystals Urine Bacteria Urine Casts Urine Mucus Urine Other Ur Culture Indicated? Urine Glucose Urine Opiates Screen Urine Methadone Screen Ur Barbiturates Screen Ur Tricyclics Screen Ur Amphetamines Screen U Benzodiazepines Scrn Urine Cocaine Screen Ur THC Screen COVID-19 PCR Nasopharyn COVID-19 PCR Ref Test Perform Site
[2020-01-12] MEDS: DEXTROSE 5%-0.9% SALINE 1,000 ML 175 ML IV ×2 (08:42→16:10)
[2020-01-12] MEDS: Pantoprazole 40 MG VIAL IVP (08:43)
[2020-01-12] MEDS: Docusate Sodium 100 MG CAP PO ×2 (08:43→20:29)
[2020-01-12] MEDS: Senna TAB 1 TAB PO ×2 (08:43→20:29)
[2020-01-12] MEDS: Thiamine 100 MG TAB PO (08:44)
[2020-01-12] MEDS: Acetaminophen 325 MG TAB 650 MG PO ×2 (08:44→18:20)
[2020-01-12] MEDS: Folic Acid 1 MG TAB PO (08:44)
[2020-01-12] MEDS: Multivitamin TAB 1 TAB PO (08:44)
[2020-01-12] MEDS: HYDROmorphone 2 MG/ML VIAL IVP ×4 (08:49→23:27)
--- NOTE | 2020-01-12 08:54 | CMPROGNOTE_ITS ---
- If Service Date Differs Date of service: 01/12/20 Time of Service: 08:54 Care Management Progress Note S/O:Juan Jose is alert CM did contact his acid recovery operator today she is going to call him in the ICU. Katt Oakes is his acid recovery operator her contact number is [phone]. She has weekly contact with Juan Jose and is a good support for him. She also reports he has been trying to cut back his alcohol use and states she has been encouraging a primary care. MARY ANN will send a referral to call center analyst provider from day of admission which is [facility] [phone]. MARY ANN did speak to Theresa at [facility] and they have been trying to reach Juan Jose for services. MARY ANN did obtain his cell phone number and faxed it to both [facility] and [facility]. A:Juan Jose is a 59 year old patient admitted with pancreatitis, ETOH withdrawal P:Juan Jose will be discharged when medically ready. He continue to be on CIWA assessment with treatment for symptoms. MARY ANN has contacted acid recovery operator to notified of admission. CM faxed referral to [facility] and new primary care. CM will continue to assess for discharge needs and coordinate disposition. [facility] for transportation home.
--- NOTE | 2020-01-12 08:54 | PDOC.CMPRO ---
- If Service Date Differs Date of service: 01/12/20 Time of Service: 08:54 Care Management Progress Note S/O:Juan Jose is alert CM did contact his cricket coach today she is going to call him in the ICU. Katt Oakes is his cricket coach her contact number is [phone]. She has weekly contact with Juan Jose and is a good support for him. She also reports he has been trying to cut back his alcohol use and states she has been encouraging a primary care. MARY ANN will send a referral to physically impaired teacher provider from day of admission which is [facility] [phone]. MARY ANN did speak to Theresa at [facility] and they have been trying to reach Juan Jose for services. MARY ANN did obtain his cell phone number and faxed it to both [facility] and [facility]. A:Juan Jose is a 59 year old patient admitted with pancreatitis, ETOH withdrawal P:Juan Jose will be discharged when medically ready. He continue to be on CIWA assessment with treatment for symptoms. MARY ANN has contacted cricket coach to notified of admission. CM faxed referral to [facility] and new primary care. CM will continue to assess for discharge needs and coordinate disposition. [facility] for transportation home.
[2020-01-12] MEDS: PHENobarbital 130 MG/ML VIAL IVP ×3 (09:10→20:42)
--- NOTE | 2020-01-12 10:30 | DI.MRI_ITS ---
EXAM: MR ABDOMEN WO CLINICAL HISTORY: MRCP: pancreatitis, dilated CBD TECHNIQUE: Multiplanar multisequence MRI and MRCP of the Abdomen was performed. COMPARISON: CT CT CHEST/ABD/PEL W from 04/18/[address] CHEST/ABD/PEL W from 04/18/[address] ABDOMEN PELVIS W from 01/11/[address] ABDOMEN PELVIS W from 01/11/2020 FINDINGS: The examination is limited due to patient motion artifact. There is no evidence of cholelithiasis. There is no biliary ductal dilatation. No choledocholithiasis is visualized. Hypointense foci are seen within the pancreas consistent with the known calcifications and suggestive of chronic pancreatitis. Inflammatory stranding and fluid is seen around the body and tail of the pa ncreas consistent with the patient's history of acute pancreatitis. No focal fluid collection is seen to suggest abscess or phlegmon. There is unchanged dilatation of the pancreatic duct. It measures up to 1.2 cm. There has been no change in size of the duct compared to the oldest extant examination fr om 04/18/2019. The visualized portions of the liver, spleen and kidneys are unremarkable. There is a trace amount of free fluid in the perihepatic and perisplenic regions. There does appear t o be a small left pleural effusion. IMPRESSION: 1. No evidence of cholelithiasis, choledocholithiasis or biliary ductal dilatation. 2. Findings of acute on chronic pancreatitis. No evidence of abscess or phlegmon. 3. Stable dilatation of the pancreatic duct. 4. Trace abdominal ascites. Findings suggestive of a small left pleural effusion. DATA REPOSITORY:
[2020-01-12] MEDS: Normal Saline Flush 10 ML SYR IVP ×2 (11:00→12:42)
--- NOTE | 2020-01-12 13:02 | W.NUTRFU ---
Date of service: 01/12/20 Time of Service: 13:03 Nutritional Follow up NOTE: 59 year old male admitted with acute alcoholic pancreatits with ETOH withdrawl. Weight wnl and stable > 1 year. Appears well nourished. Meds include thiamin, folate and MVI for repletion. lipase 774. Continues to be NPO x day 2, however nursing reports diet most likely advanced to clears later today. Will continue to follow and make warranted recommendations for optimal nutritional status. Time Spent in Nutritional Counseling and Treatment: 0
[2020-01-12] MEDS: Enoxaparin 40 MG/0.4 ML SYR SC (14:39)
[2020-01-12] MEDS: levoFLOXacin 750 MG/150 ML BAG 100 MG IVPB (18:05)
[2020-01-12] MEDS: Tamsulosin 0.4 MG CAPCR PO (18:05)
[2020-01-13] VITALS (48 sets, daily range): BP systolic 96–163; BP diastolic 57–111; PULSE 72–134; RESP 13–35; TEMP 37.5–40.4; O2SAT 88–98
[2020-01-13] MEDS: DEXTROSE 5%-0.9% SALINE 1,000 ML 175 ML IV ×2 (00:10→07:35)
[2020-01-13] MEDS: Acetaminophen 325 MG TAB 650 MG PO ×3 (01:42→17:36)
[2020-01-13] MEDS: PHENobarbital 130 MG/ML VIAL IVP ×2 (03:02→18:15)
[2020-01-13 06:47] LABS: Abs Immature Grans 0.01 10^3/uL (0.0-0.06); Absolute Basophil Count 0.01 10^3/uL (0.0-0.2); Absolute Eosinophil Count 0.03 10^3/uL (0.0-0.7); Absolute Lymphocyte Count 0.54 10^3/uL (1.2-3.4); Absolute Monocyte Count 0.48 10^3/uL (0.1-0.8); Absolute Neutrophil Count 3.69 10^3/uL (1.2-6.7); Basophils % 0.2; Eosinophils % 0.6; HCT 35.5 % (40.0-50.0); Immature Grans % 0.2; Lymphocytes % 11.3; MCH 32.8 pg (27.0-33.0); MCHC 33.8 % (32.0-36.0); MPV 9.4 fL (8.0-11.0); Monocytes % 10.1; Neutrophils % 77.6; Nucleated RBC 0 %; Platelet Count 121 10^3/uL (130-400); RBC 3.66 10^6/uL (4.36-5.78); RDW 13.3 % (11.8-14.1); RDW-SD 48.2 fL; WBC 4.76 10^3/uL (4.4-10.8)
[2020-01-13 06:57] LABS: Anion Gap 2.9 mmol/L (3-11); BUN 5 mg/dL (7-18); C-Reactive Protein 23.56 mg/dL (0.0-0.3); CO2 28.1 mmol/L (21.0-32.0); Calcium 7.5 mg/dL (8.5-10.1); Chloride 101 mmol/L (98-107); Magnesium 1.7 mg/dL (1.8-2.4); Potassium 3.4 mmol/L (3.5-5.1); Sodium 132 mmol/L (136-145)
[2020-01-13 07:06] LABS: Glucose 139 mg/dL (74-106)
[2020-01-13] MEDS: Folic Acid 1 MG TAB PO (09:08)
[2020-01-13] MEDS: Thiamine 100 MG TAB PO (09:09)
[2020-01-13] MEDS: Normal Saline Flush 10 ML SYR IVP (09:09)
[2020-01-13] MEDS: Multivitamin TAB 1 TAB PO (09:09)
[2020-01-13] MEDS: Pantoprazole 40 MG VIAL IVP (09:10)
--- NOTE | 2020-01-13 09:15 | CMPROGNOTE_ITS ---
- If Service Date Differs Date of service: 01/13/20 Time of Service: 09:15 Care Management Progress Note S/O:Juan Jose was lying in bed when CM met with him. He maintained that he was very sleepy and did not want to talk. Since Juan Jose is receiving phenobarbital for withdrawal, Dr. Espino felt it would be best to use the RASS scale for assessments vs CIWA. His scores have been between 1 and 2. Juan Jose was medicated once this morning and has slept much of the day. A:Juan Jose is a 59 year old patient admitted with pancreatitis, ETOH withdrawal P:Juan Jose will be discharged when medically ready. He continue to be on RASS assessment using treatment with phenobarbital for symptoms. CM contacted refinery operator vapor recovery unit yesterday to notify her of admission. Referrals have been sent to [facility] and to a new PCP. CM will continue to assess for discharge needs and coordinate disposition. RCT for transportation home. S
[2020-01-13] MEDS: MAGNESIUM SULFATE 2 GM/50 ML BAG IVPB (09:35)
[2020-01-13] MEDS: PHENobarbital 130 MG/ML VIAL 260 MG IVP (09:36)
[2020-01-13] MEDS: POTASSIUM CHLORIDE 20 MEQ/100 ML BAG 50 MEQ IVPB (10:23)
--- NOTE | 2020-01-13 11:09 | PGE_ITS ---
Date of Service Date of service: 01/13/20 Time of Service: 11:09 Assessment and Plan Assessment and plan (1) Alcohol withdrawal: Status: Acute Assessment and plan: Continue phenobarbital 130-260 mg IV every 30 minutes as needed to maintain a RASS scale of 0 to -1. Continue parenteral replacement of potassium and magnesium along with thiamine and multivitamin. Continue aggr essive IV fluid hydration Qualifiers: Complication of substance-induced condition: with perceptual disturbance Qualified Code(s): F10.232 - Alcohol dependence with withdrawal with perceptual disturbance (2) Aspiration pneumonia: Status: Acute Assessment and plan: Discontinue Levaquin in favor of meropenem for better anaerobic coverage as well as broad-spectrum gram-negative coverage. We will add vancomycin for staph coverage as well. Continue supportive care with Qualifiers: Laterality: bilateral Lung location: lower lobe of lung (3) Acute alcoholic pancreatitis: Status: Acute Assessment and plan: Continue aggressive IVF. Remains NPO. MRCP without evidence of stones, masses, pseudocysts, or abscesses. We will investigate whether the patient's report of being diagnosed with pancreatic cancer 2 years ago is accurate. Will obtain medical records. (4) Urinary retention: Status: Acute Assessment and plan: s/p sharp. Conitnue flomax. voiding trial in couple of days (5) COVID-19 ruled out by laboratory testing: Status: Ruled-out (6) DVT prophylaxis: Status: Acute Assessment and plan: lovenox SC (7) Discharge planning issues: Status: Acute Assessment and plan: Full code Keep in ICU. Total Critical Care Time 50 minutes. Subjective Subjective Interval history since last seen: Patient is still an active alcohol withdrawal and has pancreatitis. He was hallucinating this morning but that is improved since he has been remedicated with phenobarbital. I calculated based on his weight of 64.9 kg his cumulative dose of phenobarbital would be 1900 mg. As of this morning he only had 910 mg cumulative dose. He is spiking a fever of 40 ?C presumably due to his aspiration pneumonia. He is currently on Levaquin which I have since changed to meropenem for better anaerobic coverage as well as coverage for Pseudomonas. Although we do not have an organism as of yet. Robertha t blood cultures and urine cultures have been ordered. Sharp is draining clear yellow urine and therefore I do not suspect that it is a UTI but rather febrile response to his aspiration pneumonia. He continues to have diffuse abdominal pain secondary to his pancreatitis. He continues to have hypokalemia and hypomagnesemia which we are replacing parenterally. He has poor IV access and therefore we have asked Suzanne Casanova, nurse mis manager and PICC line specialist to command and place a midline. Since he is febrile and we have not ruled out bacteremia I rather he not have a PICC line at present. Exam Narrative Exam Narrative: Awake alert and oriented to person place and circumstance. Agitated and restless but not tremulous. Lungs with coarse rhonchi and wheezes diffusely Heart is tachycardic but regular no appreciable murmur Abdomen soft nondistended with diffuse tenderness. Active bowel sounds present Extremities no peripheral edema. Skin is warm and dry. Skin has multiple tattoos over his arms. Objective Last Vital Signs Temp 40.4 C H 01/13/20 09:54 Pulse 115 H 01/13/20 09:54 Resp 25 H 01/13/20 06:02 BP 155/84 H 01/13/20 08:01 Pulse Ox 92 01/13/20 09:00 Laboratory Results - last 24 hr 01/11/20 01/13/20 01/13/20 10:30 06:15 06:15 WBC 4.76 RBC 3.66 L Hgb 12.0 L Hct 35.5 L MCV 97.0 H MCH 32.8 MCHC 33.8 RDW 13.3 Plt Count 121 L MPV 9.4 Immature Gran % 0.2 Neutrophils % 77.6 Lymphocytes % 11.3 Monocytes % 10.1 Eosinophils % 0.6 Basophils % 0.2 Nucleated RBC % 0 Absolute Neutrophils 3.69 Absolute Lymphocytes 0.54 L Absolute Monocytes 0.48 Absolute Eosinophils 0.03 Absolute Basophils 0.01 Sodium 132 L Potassium 3.4 L Chloride 101 Carbon Dioxide 28.1 Anion Gap 2.9 L BUN 5 L Creatinine 0.80 Estimated GFR/1.73 m2 >= 60.00 Glucose 139 H D Calcium 7.5 L Magnesium 1.7 L C-Reactive Protein 23.56 H Urine Color Yellow Urine Clarity Cloudy Urine pH 7.0 Ur Specific [place] 1.015 Urine Protein Negative Urine Ketones Negative Urine Blood Negative Urine Nitrite Negative Urine Bilirubin Negative Urine Urobilinogen 1.0 H Ur Leukocyte Esterase Negative Urine RBC 0-2 Urine WBC 20-50 H Ur Epithelial Cells Negative Urine Crystals Negative Urine Bacteria Many Urine Casts Negative Urine Mucus Negative Urine Other Few transitional Ur Culture Indicated? C&s done as ordered Urine Glucose Negative
--- NOTE | 2020-01-13 11:48 | NUR.NOTE ---
Saige feldman, pt requiring a new IV, we are unable to obtain a new site at this time, despite 5 attempts, and with assist by Dr. Espino with hand held ultrasound. She returned the call and will be in.
[2020-01-13] MEDS: diazePAM 10 MG/2 ML SYR IVP (12:29)
[2020-01-13 12:59] LABS: Procalcitonin 1.1 ng/mL
[2020-01-13] MEDS: MEROPENEM 1 GM in Normal Saline 100 ML IVPB ×2 (13:21→17:36)
[2020-01-13] MEDS: VANCOMYCIN/WATER (PEG) 1.25 GM/250 ML BAG IV ×2 (13:59→21:37)
[2020-01-13] MEDS: Enoxaparin 40 MG/0.4 ML SYR SC (14:10)
[2020-01-13] MEDS: Ipratropium/Albuterol 4 GM 120 PUFF INH IH ×2 (16:14→21:36)
[2020-01-13] MEDS: Tamsulosin 0.4 MG CAPCR PO (17:39)
[2020-01-13 18:11] LABS: Bilirubin Negative (Negative); Blood Small (Negative); Clarity Clear (Clear); Glucose Negative (Negative); Ketones 15 mg/dL (Negative); Leukocyte Esterase Negative (Negative); Nitrite Negative (Negative); pH 7.5 (5-8)
[2020-01-13 18:26] LABS: Bacteria Negative HPF (Negative); C & S Indicated? C&S Done As Ordered; Casts Negative LPF (Negative); Crystals Negative HPF (Negative); Epithelial Cells Negative HPF (Negative); Mucus Negative (Negative); Other Cells Negative (Negative); WBC 0-2 HPF (0-5)
[2020-01-13] MEDS: HYDROmorphone 2 MG/ML VIAL IVP (19:26)
[2020-01-13] MEDS: Normal Saline Flush 10 ML SYR 20 ML IVP (19:27)
[2020-01-13] MEDS: Potassium Chloride 10 MEQ CAPCR 20 MEQ PO (21:36)
[2020-01-13] MEDS: Magnesium Oxide 400 MG TAB PO (21:37)
[2020-01-13 22:12] LABS: C Diff PCR Positive (Negative)
[2020-01-13] MEDS: metroNIDAZOLE 500 MG/100 ML BAG 100 MG IVPB (23:37)
[2020-01-14] VITALS (42 sets, daily range): BP systolic 99–153; BP diastolic 58–87; PULSE 94–135; RESP 13–32; TEMP 36.6–39.5; O2SAT 85–99
[2020-01-14] MEDS: MEROPENEM 1 GM in Normal Saline 100 ML IVPB ×3 (02:41→17:32)
[2020-01-14] MEDS: Acetaminophen 325 MG TAB 650 MG PO ×3 (02:55→19:09)
[2020-01-14] MEDS: HYDROmorphone 2 MG/ML VIAL IVP (03:37)
[2020-01-14] MEDS: PHENobarbital 130 MG/ML VIAL IVP (03:38)
[2020-01-14] MEDS: metroNIDAZOLE 500 MG/100 ML BAG 100 MG IVPB ×3 (05:24→18:52)
[2020-01-14 06:47] LABS: Abs Immature Grans 0.05 10^3/uL (0.0-0.06); Absolute Basophil Count 0.02 10^3/uL (0.0-0.2); Absolute Eosinophil Count 0.02 10^3/uL (0.0-0.7); Absolute Lymphocyte Count 0.53 10^3/uL (1.2-3.4); Absolute Monocyte Count 0.57 10^3/uL (0.1-0.8); Absolute Neutrophil Count 4.45 10^3/uL (1.2-6.7); Basophils % 0.4; Eosinophils % 0.4; HCT 34.3 % (40.0-50.0); HGB 11.9 g/dL (13.5-17.5); Immature Grans % 0.9; Lymphocytes % 9.4; MCH 32.9 pg (27.0-33.0); MCHC 34.7 % (32.0-36.0); MCV 94.8 fL (80-95); MPV 10.6 fL (8.0-11.0); Monocytes % 10.1; Neutrophils % 78.8; Nucleated RBC 0 %; RBC 3.62 10^6/uL (4.36-5.78); RDW 13.6 % (11.8-14.1); RDW-SD 47.4 fL; WBC 5.64 10^3/uL (4.4-10.8)
[2020-01-14 06:55] LABS: Platelet Count 101 10^3/uL (130-400)
[2020-01-14 06:58] LABS: ALT 18 U/L (16-63); AST 34 U/L (15-37); Albumin 1.8 g/dL (3.4-5.0); Alkaline Phosphatase 135 U/L (46-116); Anion Gap 3.6 mmol/L (3-11); BUN 3 mg/dL (7-18); Bilirubin, Total 1.3 mg/dL (0.2-1.0); CO2 26.4 mmol/L (21.0-32.0); CREATININE 0.72 mg/dL (0.70-1.30); Calcium 7.3 mg/dL (8.5-10.1); Chloride 104 mmol/L (98-107); Glucose 106 mg/dL (74-106); Lipase 108 U/L (73-393); Magnesium 1.9 mg/dL (1.8-2.4); Potassium 3.6 mmol/L (3.5-5.1); Sodium 134 mmol/L (136-145); Total Protein 5.3 g/dL (6.4-8.2)
[2020-01-14] MEDS: VANCOMYCIN/WATER (PEG) 1.25 GM/250 ML BAG IV ×3 (07:29→21:44)
[2020-01-14] MEDS: Pantoprazole 40 MG VIAL IVP (08:30)
[2020-01-14] MEDS: Normal Saline Flush 10 ML SYR 20 ML IVP ×2 (08:30→17:34)
[2020-01-14] MEDS: Folic Acid 1 MG TAB PO (08:31)
[2020-01-14] MEDS: Magnesium Oxide 400 MG TAB PO ×2 (08:31→20:21)
[2020-01-14] MEDS: Potassium Chloride 10 MEQ CAPCR 20 MEQ PO ×3 (08:32→20:22)
[2020-01-14] MEDS: Multivitamin TAB 1 TAB PO (08:32)
[2020-01-14] MEDS: Thiamine 100 MG TAB PO (08:33)
--- NOTE | 2020-01-14 09:20 | CMPROGNOTE_ITS ---
- If Service Date Differs Date of service: 01/14/20 Time of Service: 09:20 Care Management Progress Note S/O:Juan Jose was lying in bed when CM met with him. He is more awake today and ate some soft foods. Juan Jose remains in the ICU with his alcohol withdrawal being managed using the RASS scale. He has not required medication since about 3am. Juan Jose continues to have diarrhea which is now known to be caused by C. difficile. he also remains febrile much of the time and has abdominal pain pres umably from the pancreatitis. Juan Jose was disinclined to speak to CM, answering questions with one word answers or none at all. 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 A:Juan Jose is a 59 year old patient admitted with pancreatitis, ETOH withdrawal P:Juan Jose will be discharged when medically ready. He continue to be on RASS assessment using treatment with phenobarbital for symptoms. Referrals have been sent to [facility] and to a new PCP. CM will continue to assess for discharge needs and coordinate disposition. RCT for transportation home. S
[2020-01-14] MEDS: Ipratropium/Albuterol 4 GM 120 PUFF INH IH ×4 (10:15→20:21)
--- NOTE | 2020-01-14 10:25 | W.PM.PROGNOT ---
Date of Service Date of service: 01/14/20 Time of Service: 10:25 Assessment and Plan Assessment and plan (1) Alcohol withdrawal: Status: Acute Assessment and plan: Continue phenobarbital 130-260 mg IV every 30 minutes as needed to maintain a RASS scale of 0 to -1. Continue parenteral replacement of potassium and magnesium along with thiamine and multivitamin. Continue aggressive IV fluid hydration Qualifiers: Complication of substance-induced condition: with perceptual disturbance Qualified Code(s): F10.232 - Alcohol dependence with withdrawal with perceptual disturbance (2) Aspiration pneumonia: Status: Acute Assessment and plan: Patient had 2 days of coverage of Levaquin before he was switched over to meropenem and vancomycin yesterday. We will attempt to get a sputum specimen from him. Acapella has been ordered in addition to incentive spirometry. He is on supplemental oxygen and scheduled bronchodilators. Qualifiers: Laterality: bilateral Lung location: lower lobe of lung (3) Acute alcoholic pancreatitis: Status: Acute Assessment and plan: Lipase is resolved he has no abdominal pain and is hungry. We will start to feed him and advance his diet as tolerated. We will continue with IV fluids but at a reduced rate to support him due to his diarrhea from C. difficile (4) Urinary retention: Status: Acute Assessment and plan: s/p sharp. Conitnue flomax. voiding trial in couple of days (5) C. difficile diarrhea: Status: Acute Assessment and plan: Patient was started on Flagyl IV last night. I have added some oral vancomycin and Metamucil. Hopefully we can downgrade his other parenteral antibiotics if we can get a decent sputum specimen. (6) COVID-19 ruled out by laboratory testing: Status: Ruled-out (7) DVT prophylaxis: Status: Acute Assessment and plan: lovenox SC (8) Discharge planning issues: Status: Acute Assessment and plan: Full code Keep in ICU. Total Critical Care Time 50 minutes. Subjective Subjective Interval history since last seen: Patient states he is hungry and wants to be fed. His lipase is normalized and he denies any abdominal pain. New development is he has had diarrhea and stools are positive for C. difficile toxin and he has since been started on IV Flagyl. I have added Metamucil to help thicken his stools and put him on some oral vancomycin as well. He continues to be treated for acute alcohol withdrawal. Patient has not had any further hallucinations although nursing reports that he is not completely cogent with where he is at or why he is here in the hospital. He does recognize he is at [facility] but cannot seem to explain the circumstances of his hospitalization. He has generalized weakness in addition to his diarrhea and remains hypokalemic and is currently receiving IV and oral replacement. His CIWA score this morning is 14 however his RASS scale is -1. He has not received any phenobarbital this morning last dose was given around 3:30 AM. As his pancreatitis seems to have resolved I will start him on a liquid diet and advance him as tolerated. We will maintain him in the ICU for today and if he does not ramp up on his agitation we could transfer him out to the medical/surgical floor as long as he is not requiring further phenobarbital parenterally. He will continue receiving meropenem and vancomycin for his pneumonia and oral vancomycin and IV Flagyl for his C. difficile. Exam Narrative Exam Narrative: Disheveled middle-age male who looks older than his stated age. He is lying in bed and initially was somnolent but awakened easily and answered my questions but then after getting angry but being hungry not being fed close his eyes and ignored me. Lungs slight bilateral basilar rhonchi and some end expiratory wheezes Heart is regular but tachycardic Abdomen soft nondistended normal active bowel sounds Neuro is grossly intact no focal deficits no tremors and no hallucinations. Objective Last Vital Signs Temp 37.9 C H 01/14/20 08:02 Pulse 135 H 01/14/20 08:02 Resp 14 01/14/20 06:00 BP 106/63 01/14/20 06:00 Pulse Ox 95 01/14/20 06:00 Laboratory Results - last 24 hr 01/13/20 01/13/20 01/13/20 06:15 17:45 19:00 WBC RBC Hgb Hct MCV MCH MCHC RDW Plt Count MPV Immature Gran % Neutrophils % Lymphocytes % Monocytes % Eosinophils % Basophils % Nucleated RBC % Absolute Neutrophils Absolute Lymphocytes Absolute Monocytes Absolute Eosinophils Absolute Basophils Sodium Potassium Chloride Carbon Dioxide Anion Gap BUN Creatinine Estimated GFR/1.73 m2 Glucose Calcium Magnesium Total Bilirubin AST ALT Alkaline Phosphatase Total Protein Albumin Lipase Procalcitonin 1.1 Urine Color Yellow Urine Clarity Clear Urine pH 7.5 Ur Specific [place] 1.020 Urine Protein Negative Urine Ketones 15 H Urine Blood Small H Urine Nitrite Negative Urine Bilirubin Negative Urine Urobilinogen 1.0 H Ur Leukocyte Esterase Negative Urine RBC 5-10 H Urine WBC 0-2 Ur Epithelial Cells Negative Urine Crystals Negative Urine Bacteria Negative Urine Casts Negative Urine Mucus Negative Urine Other Negative Ur Culture Indicated? C&s done as ordered Urine Glucose Negative Stl C.difficile Tox PCR Positive A 01/14/20 01/14/20 06:25 06:25 WBC 5.64 RBC 3.62 L Hgb 11.9 L Hct 34.3 L MCV 94.8 MCH 32.9 MCHC 34.7 RDW 13.6 Plt Count 101 L MPV 10.6 Immature Gran % 0.9 Neutrophils % 78.8 Lymphocytes % 9.4 Monocytes % 10.1 Eosinophils % 0.4 Basophils % 0.4 Nucleated RBC % 0 Absolute Neutrophils 4.45 Absolute Lymphocytes 0.53 L Absolute Monocytes 0.57 Absolute Eosinophils 0.02 Absolute Basophils 0.02 Sodium 134 L Potassium 3.6 Chloride 104 Carbon Dioxide 26.4 Anion Gap 3.6 BUN 3 L Creatinine 0.72 Estimated GFR/1.73 m2 >= 60.00 Glucose 106 Calcium 7.3 L Magnesium 1.9 Total Bilirubin 1.3 H AST 34 ALT 18 Alkaline Phosphatase 135 H Total Protein 5.3 L Albumin 1.8 L Lipase 108 Procalcitonin Urine Color Urine Clarity Urine pH Ur Specific [place] Urine Protein Urine Ketones Urine Blood Urine Nitrite Urine Bilirubin Urine Urobilinogen Ur Leukocyte Esterase Urine RBC Urine WBC Ur Epithelial Cells Urine Crystals Urine Bacteria Urine Casts Urine Mucus Urine Other Ur Culture Indicated? Urine Glucose Stl C.difficile Tox PCR
[2020-01-14 13:32] LABS: Vancomycin, Trough 16.9 ug/mL (10.0-20.0)
[2020-01-14] MEDS: THIAMINE 500 MG in Normal Saline 100 ML 200 MG IVPB ×2 (14:46→21:03)
[2020-01-14] MEDS: Enoxaparin 40 MG/0.4 ML SYR SC (14:57)
[2020-01-14] MEDS: Tamsulosin 0.4 MG CAPCR PO (16:55)
[2020-01-14] MEDS: guaiFENesin 600 MG TABCR PO (20:21)
[2020-01-14] MEDS: Psyllium PKT 1 EACH PO (20:22)
[2020-01-15] VITALS (14 sets, daily range): BP systolic 120–166; BP diastolic 69–86; PULSE 92–118; RESP 12–29; TEMP 37–38.7; O2SAT 90–97
[2020-01-15] MEDS: metroNIDAZOLE 500 MG/100 ML BAG 100 MG IVPB ×4 (00:26→19:01)
[2020-01-15] MEDS: Acetaminophen 325 MG TAB 650 MG PO ×2 (01:39→13:14)
[2020-01-15] MEDS: MEROPENEM 1 GM in Normal Saline 100 ML IVPB ×3 (02:13→17:51)
[2020-01-15] MEDS: VANCOMYCIN/WATER (PEG) 1.25 GM/250 ML BAG IV (06:19)
[2020-01-15] MEDS: THIAMINE 500 MG in Normal Saline 100 ML 200 MG IVPB ×2 (06:25→13:15)
[2020-01-15] MEDS: Ipratropium/Albuterol 4 GM 120 PUFF INH IH ×3 (07:56→14:59)
[2020-01-15] MEDS: Senna TAB 1 TAB PO (08:20)
[2020-01-15] MEDS: Pantoprazole 40 MG TABCR PO (08:20)
[2020-01-15] MEDS: Docusate Sodium 100 MG CAP PO (08:20)
[2020-01-15] MEDS: Potassium Chloride 10 MEQ CAPCR 20 MEQ PO ×2 (08:20→13:14)
[2020-01-15] MEDS: guaiFENesin 600 MG TABCR PO (08:20)
[2020-01-15] MEDS: Magnesium Oxide 400 MG TAB PO (08:21)
[2020-01-15] MEDS: Normal Saline Flush 10 ML SYR 20 ML IVP (08:21)
[2020-01-15] MEDS: Multivitamin TAB 1 TAB PO (08:21)
[2020-01-15] MEDS: Folic Acid 1 MG TAB PO (08:21)
--- NOTE | 2020-01-15 08:47 | PGE_ITS ---
Date of Service Date of service: 01/15/20 Time of Service: 08:47 Assessment and Plan Assessment and plan (1) Alcohol withdrawal: Status: Acute Assessment and plan: Patient's acute alcohol withdrawal has improved remarkably. No further hallucinations. CIWA score is low. He is not required any IV phenobarbital since 3:30 in the morning on January 13. At this point I think he is out of the danger zone of having DTs and can be transferred to the medical/surgical floor. We will discontinue telemetry monitoring but continue treatment for his aspiration pneumonia and is C. difficile diarrhea. We will give him a trial of voiding. Physical therapy has been ordered to work with him to rebuild his strength. 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 Qualifiers: Complication of substance-induced condition: with perceptual disturbance Qualified Code(s): F10.232 - Alcohol dependence with withdrawal with perceptual disturbance (2) Aspiration pneumonia: Status: Acute Assessment and plan: Continue bronchodilators, broad-spectrum antibiotics. He has no evidence for MRSA there from a discontinue the vancomycin but continue with the meropenem and add Rocephin for strep coverage. Continue with pulmonary toiletry with Acapella and incentive spirometry. Increase his mobilization with physical therapy. Qualifiers: Laterality: bilateral Lung location: lower lobe of lung (3) Acute alcoholic pancreatitis: Status: Resolved Assessment and plan: Symptoms have resolved his lipase is resolved. I reviewed his history from [facility] in January 2018. At that time patient had pancreatic ductal stones causing obstruction and a pancreatic leak which led to a complicated pleural effusion. He required ERCP and stent placement. (4) Urinary retention: Status: Acute Assessment and plan: NEIL Tripp give the patient a voiding trial. (5) C. difficile diarrhea: Status: Acute Assessment and plan: Continue IV Flagyl and p.o. Vancocin along with lactobacillus and add Questran to try to thicken his stools. 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 CIWA score is down to 3-8. He no longer has any hallucinations. He is alert and oriented person place time and circumstance. He still having diarrhea but no abdominal pain. Denies any dyspnea although he is borderline hypoxemic with an SPO2 of 90% on room air. Exam Narrative Exam Narrative: Middle-age male who appears older than his stated age of 59 appears disheveled. He is alert and oriented person place time circumstance. Lungs with scattered end expiratory wheezes and diffuse rhonchi Heart regular rate and rhythm Abdomen soft nondistended normal active bowel sounds no palpable masses no bruits Extremities without edema. Objective Last Vital Signs Temp 37.5 C 01/15/20 07:30 Pulse 102 H 01/15/20 08:00 Resp 19 01/15/20 08:00 BP 157/77 H 01/15/20 08:00 Pulse Ox 90 L 01/15/20 00:00 Laboratory Results - last 24 hr 01/13/20 01/14/20 17:45 13:15 Vancomycin Trough 16.9 Ur Strep pneumoniae Ag Cancelled Objective Narrative Objective Narrative: [id number] ultrasound of his lungs shows diffuse bilateral B-lines and a small left-sided pleural effusion. B-lines are seen in both bases as well as mid lung zones bilaterally but not in the upper lung zones.
--- NOTE | 2020-01-15 09:32 | CMPROGNOTE_ITS ---
- If Service Date Differs Date of service: 01/15/20 Time of Service: 09:32 Care Management Progress Note S/O:Juan Jose (Kal) was moved out of the ICU today he is improving per the provider. He has a PT evaluation today, in which he stated he wanted to return home. He does have support through [facility] and will continue with those supports, CM made a referral to [facility] as well and [facility] for new patient appointment. He will need a new appointment scheduled prior to discharge. PT is recommending a FWW Juan Jose will consider. CM will continue to assess for discharge needs and disposition. A:Juan Jose is a 59 year old patient admitted with pancreatitis, ETOH withdrawal P:Juan Jose will be discharged when medically ready. Referrals have been sent to [facility] and to a new PCP. CM will continue to assess for discharge needs and coordinate disposition. RCT for transportation home. Anticipate a new FWW.
--- NOTE | 2020-01-15 10:00 | DI.RAD_ITS ---
EXAM: XR PORTABLE CHEST AP CLINICAL HISTORY: follow up aspiration pneumonia; dyspnea, hypoxemia TECHNIQUE: 2D digital imaging was performed. COMPARISON: CR,XR XR PORTABLE CHEST AP from 06/02/2019 CR XR PORTABLE CHEST AP from 01/11/2020 FINDINGS: The heart is again noted to be enlarged. A PICC line is seen from the right arm with the tip in the junction of the SVC and right atrium. There are bilateral infiltrates which appear to have worsened when compared with the previous exam and involve both upper and lower lobes bilaterally. No effusion is visible. IMPRESSION: Interval worsening of bilateral pulmonary infiltrates, now diffuse. Cardiomegaly. DATA REPOSITORY: RADIATION DOSE DELIVERED:
--- NOTE | 2020-01-15 10:14 | PT.INIE ---
Date of service: 01/15/20 Time of Service: 08:59 PT Notes Visit Reasons: PANCREATITIS, ALCOHOL W Physical Therapy Inpatient Initial Evaluation Date: 01/15/2020 Referring Doctor: Elias Parisi MD PT Orders: PT CONSULT: Stay weakness Precautions: Fall. Standard. C. Diff enteric contact precautions. VS tolerated. Patient Profile/Admitting Diagnosis: Juan Jose is a 59-year-old male who presented to the ED on 01/10/2020 with chief complaints of acute abdominal pain, nausea, and vomiting. He is diagnosed with alcohol withdrawal, aspiration pneumonia, acute EtOH pancreatitis, urinary retention, and C. difficile diarrhea. He is COVID-19 negative. PMHX: Medical History (Updated 01/11/20 @ 02:02 by Alejo Larson MD) HTN (hypertension) Hx of hyperlipidemia Myocardial infarction x 2 Pancreatic cancer with h/o pancreatic stent Pancreatitis Social History/Home Situation: Lives alone in an apartment in [place], [place]. 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 He is an alcoholic and has been estranged from his family. Depends on [facility] for transport. Independent with all aspects of ADLs prior to admission Equipment Owned/DME: None Subjective: I wan to to go home. Agreeable to PT consult. Reports lightheadedness during ambulation activity. Denies headache and chest pain throughout. Complained of left abdominal discomfort that got aggravated after ambulation activity. Objective: General Observation: Telemetry monitoring in place. Tripp catheter in place. IV in the right brachium. Mental Status: Alert and oriented x4 Pain: 5?6/10 pain in the left upper abdominal quadrant Vital Signs: HR high of 130 bpm during ambulation activity ROM: Right Upper Extremity: Shoulder Flexion allows only up to 90 degrees of range. Shoulder abduction allows only up to 90 degrees of range. Elbow flexion WFL. Wrist flexion WFL. Opening and closing of hand WFL. Left Upper Extremity: Shoulder Flexion allows only up to 90 degrees of range. Shoulder abduction allows only up to 90 degrees of range. Elbow flexion WFL. Wrist flexion WFL. Opening and closing of hand WFL. Right Lower Extremity: Hip flexion WFL. Hip abduction WFL. Knee flexion WFL. Ankle dorsiflexion WFL. Ankle plantarflexion WFL. Left Lower Extremity: Hip flexion WFL. Hip abduction WFL. Knee flexion WFL. Ankle dorsiflexion WFL. Ankle plantarflexion WFL. Strength: Right Upper Extremity: Shoulder flexors 3-/5. Shoulder abductors 3-/5. Elbow flexors 4-/5. Elbow extensors 4-/5. Healthcare Liaison strong. Left Upper Extremity: Shoulder flexors 3-/5. Shoulder abductors 3-/5. Elbow flexors 4-/5. Elbow extensors 4-/5. Healthcare Liaison strong. Right Lower Extremity: Hip flexors 4-/5. Hip abductors 4-/5. Knee flexors 4-/5. Knee extensors 4-/5. Ankle dorsiflexors 4-/5. Ankle plantarflexors 4-/5. Left Lower Extremity: Hip flexors 4-/5. Hip abductors 4-/5. Knee flexors 4-/5. Knee extensors 4-/5. Ankle dorsiflexors 4-/5. Ankle plantarflexors 4-/5. Sensation: Intact as to pain and pressure on bilateral lower extremities. Bed Mobility/Transfers: Rolling standby assist Supine to sit standby assist Sit to supine standby assist Sit to stand contact-guard assist Stand to sit contact-guard assist Bed to chair contact-guard assist Chair to bed contact-guard assist Gait: Approximately 100 feet of ICU hallway ambulation using front wheeled walker with full weight bearing requiring contact-guard assist with patient demonstrating mild ataxia with decreased antonio. Reported increase in abdominal pain after ambulation activity that made him go back to bed. Balance: Static Sitting: Normal Dynamic Sitting: Normal Static Standing: Fair Dynamic Standing: Fair Special Tests: Mobility Limitations [facility] Basic Mobility In[facility] Short Form: Raw Score: 18 CMS Score: 47% deficit 4-stage balance test: Unable to maintain all 4 positions at this time indicating a high risk for falling requiring the use of a front wheeled walker and assist of 1 for safety. Informed Consent/Education: Patient instructed in purpose of PT consult and plan of care. Assessment: Juan Jose demonstrates functional mobility decline requiring the use of a front wheeled walker for all mobility ADL performance, generalized weakness, balance impairment, difficulty with walking, and increased risk for falls due to admitting diagnoses. Patient presents with clinical signs and symptoms consistent with current/admitting diagnoses that have resulted to mobility limitations, gait instability, generalized weakness, and impairment of motor control as demonstrated by the following impairment level findings: 1. Decreased strength to B LE major muscle groups 2. Impaired standing balance 3. Impaired activity tolerance 4. Limitation of joint range of motion in B shoulders 5. Ataxic gait 6. Lightheadedness Impairments are contributing to the following functional limitations: 1. Inability to safely ambulate without assistive device and physical assistance 2. Increase completion time for mobility ADL performance 3. Increased fall risk 4. Inability to negotiate steps alone safely Patient is assessed as a 78109 moderate complexity based on the following: History: 59-year-old male with impairment level findings, functional limitations, and past medical history as indicated above Examination: Demonstrable impairment in strength, balance, and mobility level with underlying impairments and functional limitations as documented above Presentation:Evolving Decision Makin moderate complexity Goals: Goals X 3 days 1. Supine-Sit independent 2. Sit-Supine independent 3. Sit-Stand independent 4. Stand-Sit independent 5. Bed-Chair independent 6. Chair-Bed independent 7. Independent gait on level surface with use of least restrictive device for at least 300 feet without report of pain nor dyspnea 8. Independent stair negotiation while holding onto bilateral rails for at least 10 steps without report of pain nor dyspnea 9. Independent with home exercise program 10. Good static and dynamic standing balance/tolerance Plan of Care/Treatment Plan: 1-2x/day, 7 days/week x 1 week. Plan of care has been reviewed with the [employer] providing the service under Physical Therapy direction. Initiate Physical Therapy intervention for strengthening, bed mobility, transfers, gait, stairs, balance training, use of assistive device. DISCHARGE RECOMMENDATIONS: Juan Jose will benefit from the use of a front wheeled walker for safety. He will benefit from home health PT services in order to progress mobility level using least restrictive assistive ambulatory device, assess home safety, identify additional equipment needs, and establish a functional maintenance program that will increase ability of patient to remain at home. TREATMENT CODE/TIME: 9716 2 x 25 minutes, 88863 x 9 minutes beginning at 10:14 AM. Thank you for the opportunity to participate in the care of this patient. Nadege Macedo PT, DPT, CLT [facility] [place], [place]
--- NOTE | 2020-01-15 10:21 | W.NUTRFU ---
Date of service: 01/15/20 Time of Service: 10:21 Nutritional Follow up NOTE: Pt advanced to full liquid diet and tolerating well. Lipase improved and wnl. Now with C diff diarrhea with added metamucil for additional soluable fiber. Continues to be at nutritional risk in view of poor nutritional status prior to admission with long history of ETOH abuse and increased losses with current C diff diarrhea. Will continue to follow and make recommendations for optimal nutrient intake and weight maintenance. Time Spent in Nutritional Counseling and Treatment: 0
[2020-01-15] MEDS: cefTRIAXone 2 GM/50 ML BAG IVPB (11:03)
[2020-01-15] MEDS: Cholestyramine/Aspartame PKT 1 EACH PO (11:03)
[2020-01-15] MEDS: Furosemide 40 MG TAB PO (11:04)
[2020-01-15 11:15] LABS: NT-proBNP 1517 pg/mL (<300)
[2020-01-15 12:56] LABS: ALT 16 U/L (16-63); AST 35 U/L (15-37); Albumin 1.8 g/dL (3.4-5.0); Alkaline Phosphatase 153 U/L (46-116); Anion Gap 9.8 mmol/L (3-11); BUN 5 mg/dL (7-18); Bilirubin, Total 0.9 mg/dL (0.2-1.0); CO2 21.2 mmol/L (21.0-32.0); CREATININE 0.65 mg/dL (0.70-1.30); Calcium 7.7 mg/dL (8.5-10.1); Chloride 104 mmol/L (98-107); Glucose 131 mg/dL (74-106); Magnesium 1.9 mg/dL (1.8-2.4); Potassium 3.9 mmol/L (3.5-5.1); Sodium 135 mmol/L (136-145); Total Protein 5.7 g/dL (6.4-8.2)
[2020-01-15] MEDS: Enoxaparin 40 MG/0.4 ML SYR SC (13:14)
[2020-01-15] MEDS: Lactobacillus Acidophilus CAP 1 CAP PO (13:15)
[2020-01-15] MEDS: Normal Saline Flush 10 ML SYR IVP ×2 (13:16→17:52)
--- NOTE | 2020-01-15 15:18 | PT.INTREAT ---
Date of service: 01/15/20 Time of Service: 14:00 PT Notes Visit Reasons: PANCREATITIS, ALCOHOL W Inpatient Physical Therapy Treatment Note [facility] Date: 01/15/2020 PRECAUTIONS: Fall, enteric SUBJECTIVE: Juan Jose states that he wants to go home. During PT session, he states that he feels he is walking better than this morning. He reports that his will be able to help him once he returns to home. OBJECTIVE: PAIN: No complaint of pain BED MOBILITY/TRANSFERS Supine-sit: I Sit-supine: I Sit-stand: SBA Stand-sit: SBA GAIT Assistive Device: FWW Weight bearing: Full Assist: CGA Distance: 200' THEREX: Refused ther ex participation ASSESSMENT: Patient demonstrates independence with bed mobility at this time. He was able to tolerate a progression in gait distance with FWW support, although continues to require CGA due to mildly unsteady gait. He would benefit from continued gait training as well as global strengthening for improved mobility and continued progression towards baseline level of function. PLAN: Continue with global strengthening as well as gait training for continued progression towards baseline level of function TREATMENT CODE/TIME: 15 minutes; [id number]
[2020-01-15] MEDS: Tamsulosin 0.4 MG CAPCR PO (17:51)
[2020-01-16 11:50] LABS: Campylobacter PCR Negative (Negative); Salmonella PCR Negative (Negative); Shiga Toxin PCR Negative (Negative); Shigella/Enteroinvasive Ecoli Negative (Negative)
--- NOTE | 2020-01-16 19:06 | W.PM.DS.N ---
Date of service: 01/16/20 Time of Service: 19:07 DS: Diagnosis Discharge Diagnosis (1) Alcohol withdrawal: Status: Acute Asessment and Plan: Patient completed treatment for his acute alcohol withdrawal after receiving multiple as needed doses of phenobarbital. At the time the patient left the hospital he had not received any phenobarbital in over 40 hours. (2) Aspiration pneumonia: Status: Acute Asessment and Plan: Patient was treated for aspiration pneumonia initially with Levaquin and then later switched to vancomycin and meropenem. Patient had not completed his antibiotic treatment for his pneumonitis. He left the hospital AGAINST MEDICAL ADVICE. (3) Acute alcoholic pancreatitis: Status: Resolved Asessment and Plan: Clinically and chemically his pancreatitis had resolved as his lipase had normalized and he was no longer having abdominal pain or nausea or vomiting and had been tolerating a regular diet at the time of discharge from the hospital. (4) Urinary retention: Status: Acute Asessment and Plan: Tripp catheter had been removed on the morning of discharge and he seemed to be voiding on his own. (5) C. difficile diarrhea: Status: Acute Asessment and Plan: At the time of discharge from the hospital the patient was still experiencing diarrhea but this was improving with treatment of Questran and IV Flagyl and oral vancomycin. (6) DVT prophylaxis: Status: Acute Asessment and Plan: Patient was treated with Lovenox for DVT prophylaxis during his hospital stay. (7) Discharge planning issues: Status: Acute Asessment and Plan: Patient was not discharged from the hospital voluntarily but rather the patient left the hospital AGAINST MEDICAL ADVICE. Discharge Plan Disposition Patient Disposition: AGAINST MEDICAL ADVICE Condition: Poor Discharge Details Reason For Visit: PANCREATITIS, ALCOHOL W Admit Date/Time: 01/11/20 02:07 Admit Provider: Alejo Larson Attending Provider: Alejo Larson Primary Care Provider: None,None Hospital Course Hospital Course: Please see my progress notes and Dr. Smith's progress notes for details for the hospitalization from January 10, 2020 through January 15, 2020. Also I would refer you to my discharge summary from January 16, 2020 when the patient was transferred to the [facility] in critical care condition for treatment of ARDS. Should be noted that the patient left AGAINST MEDICAL ADVICE on the evening of January 15, 2020 at that time was coherent and oriented and able to ambulate under his own power. Patient had completed treatment for acute alcohol withdrawal but was still being treated for aspiration pneumonia and C. difficile colitis. Home Meds and New Rx's Prescriptions: No Action No Known Home Meds RF: 0 Discharge Instructions Activity:: Activity as Tolerated Equipment/Supplies:: No Equipment Needed Diet:: As Tolerated Discharge Orders Discharge Orders: Discharge Order (Routine); Ordered 01/16/20 Ordered By: Elias Espino Discharge Data Discharge Date/Time-TO BE ENTERED AT DEPARTURE: 01/15/20 19:53 DS: Summary Status at Discharge Functional status at discharge: independent ambulation Overall status at discharge: patient is not back to baseline Mental Status: mental status grossly normal Speech and Movement: speech and movement normal Mood: congruent mood Affect: normal affect Time Spent with Patient providing and/or coordinating discharge services: Less than 30 minutes Exam Narrative Exam Narrative: Patient was not examined at the time he left AGAINST MEDICAL ADVICE in the evening of January 15, 2020 but based on my examination earlier in the day the patient was alert and oriented to person place time circumstance was coherent nonhallucinating and his acute alcohol withdrawal had resolved. Patient was still being treated for aspiration pneumonia and C. difficile colitis and left against the medical advice given to him by his nurse. Patient ambulated out of the hospital under his own power only to be found down on the ground outside the hospital 25 minutes later. Psych Mental Status: mental status grossly normal Speech and Movement: speech and movement normal Mood: congruent mood Affect: normal affect DS: Data Vitals/I&O Vitals and I&O: Vital Signs Temperature 37.5 C 01/15/20 07:30 Temperature Source Temporal Artery Scan 01/15/20 04:05 Pulse 113 H 01/15/20 12:02 Pulse Rhythm Regular 01/15/20 16:58 Pulse 115 H 01/15/20 12:02 Respiratory Rate 12 01/15/20 12:02 Respiratory Effort 01/15/20 16:58 Respiratory Depth Normal 01/15/20 07:30 Respiratory Pattern Tachypnea 01/15/20 16:58 Blood Pressure 159/73 H 01/15/20 12:02 Blood Pressure Mean 93 01/15/20 12:02 Blood Pressure Position Left Lateral 01/15/20 07:30 Pulse Oximetry 93 01/15/20 12:02 Oxygen Delivery Method Room Air 01/15/20 08:30 Oxygen Flow Rate 0 01/15/20 08:30 Pain Level 10 01/15/20 16:04 Intake & Output 01/15/20 01/16/20 01/16/20 23:59 11:59 23:59 Intake Total 1555 / 3040 34 / 34 Balance 1555 / -130 34 / 34 Intake: IV 1305 / 2310 34 / 34 Oral 250 / 730 Other: Urine Appearance Clear Data Completed and Pending Labs on day of discharge: Labs from last 24 hours 01/13/20 19:00 Stool Campylobacter PCR Negative Stool Salmonella PCR Negative Stool Shigella PCR Negative Shiga Toxin (PCR) Negative 01/15/20 Unknown Sputum Sputum Culture - Pending 01/15/20 Unknown Sputum Gram Stain - Pending Preliminary micro results at discharge 01/13/20 10:50 Blood Culture - Preliminary Blood NO GROWTH 72 HOURS 01/13/20 11:00 Blood Culture - Preliminary Blood NO GROWTH 72 HOURS 01/15/20 Unknown Sputum Culture - Pending Sputum Gram Stain - Pending [facility] Medical History (Updated 01/16/20 @ 19:14 by Elias Espino) HTN (hypertension) Hx of hyperlipidemia Myocardial infarction x 2 Pancreatitis Pancreatitis, chronic Presence of pancreatic duct stent (~01/2018) Sean Sears Surgical History (Updated 01/16/20 @ 10:43 by Elias Espino) S/P ERCP (~01/2018) Sean Sears Social History Smoking/Tobacco Use Status: Current every day Tobacco Type: cigarettes Smoking packs per day: 1 Smoking cigarettes per day: 20.0 Smoking risk assessment performed?: Yes Alcohol Intake: former Drug use: Never Details: reports no drinking or drug use Do you feel safe at home: Yes Do you feel safe in your relationship?: Yes Additional Social history: homeless- living at [facility]
--- NOTE | 2020-01-19 08:52 | INDS_ITS ---
Date of service: 01/19/20 Time of Service: 08:52 PT Notes Visit Reasons: PANCREATITIS, ALCOHOL W Physical Therapy Inpatient Discharge Summary Date: 01/19/2020 Dates of Service: 01/15/2020 only This is a clinical summary of care provided on the duration of dates listed above. No charge was made in the completion of this documentation. Referring Doctor: Elias Parisi MD PT Orders: PT CONSULT: Stay weakness Precautions: Fall. Standard. C. Diff enteric contact precautions. VS tolerated. Patient Profile/Admitting Diagnosis: Juan Jose is a 59-year-old male who presented to the ED on 01/10/2020 with chief complaints of acute abdominal pain, nausea, and vomiting. He is diagnosed with alcohol withdrawal, aspiration pneumonia, acute EtOH pancreatitis, urinary retention, and C. difficile diarrhea. He is COVID-19 negative. PMHX: Medical History (Updated 01/11/20 @ 02:02 by Alejo Larson MD) HTN (hypertension) Hx of hyperlipidemia Myocardial infarction x 2 Pancreatic cancer with h/o pancreatic stent Pancreatitis Social History/Home Situation: Lives alone in an apartment in [place], [place]. 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 He is an alcoholic and has been estranged from his family. Depends on [facility] for transport. Independent with all aspects of ADLs prior to admission Equipment Owned/DME: None Subjective: NT. See most recent FLOOR SCRAPER notes. Objective: General Observation: NT. See most recent FLOOR SCRAPER notes. Mental Status: NT. See most recent FLOOR SCRAPER notes. Pain: NT. See most recent FLOOR SCRAPER notes. Vital Signs: NT. See most recent FLOOR SCRAPER notes. ROM: Right Upper Extremity: Shoulder Flexion allows only up to 90 degrees of range. Shoulder abduction allows only up to 90 degrees of range. Elbow flexion WFL. Wrist flexion WFL. Opening and closing of hand WFL. Left Upper Extremity: Shoulder Flexion allows only up to 90 degrees of range. Shoulder abduction allows only up to 90 degrees of range. Elbow flexion WFL. Wrist flexion WFL. Opening and closing of hand WFL. Right Lower Extremity: Hip flexion WFL. Hip abduction WFL. Knee flexion WFL. Ankle dorsiflexion WFL. Ankle plantarflexion WFL. Left Lower Extremity: Hip flexion WFL. Hip abduction WFL. Knee flexion WFL. Ankle dorsiflexion WFL. Ankle plantarflexion WFL. Strength: Right Upper Extremity: Shoulder flexors 3-/5. Shoulder abductors 3-/5. Elbow flexors 4-/5. Elbow extensors 4-/5. Property Utilization Manager strong. Left Upper Extremity: Shoulder flexors 3-/5. Shoulder abductors 3-/5. Elbow flexors 4-/5. Elbow extensors 4-/5. Property Utilization Manager strong. Right Lower Extremity: Hip flexors 4-/5. Hip abductors 4-/5. Knee flexors 4-/5. Knee extensors 4-/5. Ankle dorsiflexors 4-/5. Ankle plantarflexors 4-/5. Left Lower Extremity: Hip flexors 4-/5. Hip abductors 4-/5. Knee flexors 4-/5. Knee extensors 4-/5. Ankle dorsiflexors 4-/5. Ankle plantarflexors 4-/5. Sensation: Intact as to pain and pressure on bilateral lower extremities. Bed Mobility/Transfers: Rolling independent Supine to sit independent Sit to supine independent Sit to stand independent Stand to sit independent Bed to chair independent Chair to bed independent Gait: 200 feet using front wheeled walker with full weightbearing requiring contact-guard assist. Balance: Static Sitting: Normal Dynamic Sitting: Normal Static Standing: Fair Dynamic Standing: Fair Assessment: Juan Jose continues to demonstrate functional mobility decline requiring the use of a front wheeled walker for all mobility ADL performance, generalized weakness, balance impairment, difficulty with walking, and increased risk for falls due to admitting diagnoses. Patient continues to present with clinical signs and symptoms consistent with current/admitting diagnoses that have resulted to mobility limitations, gait instability, generalized weakness, and impairment of motor control as demonstrated by the following impairment level findings: 1. Decreased strength to B LE major muscle groups 2. Impaired standing balance 3. Impaired activity tolerance 4. Limitation of joint range of motion in B shoulders 5. Ataxic gait 6. Lightheadedness Impairments are continuing to contribute to the following functional limitations: 1. Inability to safely ambulate without assistive device and physical assistance 2. Increase completion time for mobility ADL performance 3. Increased fall risk 4. Inability to negotiate steps alone safely Goals: Goals X 3 days 1. Supine-Sit independent NOT MET 2. Sit-Supine independent NOT MET 3. Sit-Stand independent NOT MET 4. Stand-Sit independent NOT MET 5. Bed-Chair independent NOT MET 6. Chair-Bed independent NOT MET 7. Independent gait on level surface with use of least restrictive device for at least 300 feet without report of pain nor dyspnea NOT MET 8. Independent stair negotiation while holding onto bilateral rails for at least 10 steps without report of pain nor dyspneaNOT MET 9. Independent with home exercise program NOT MET 10. Good static and dynamic standing balance/tolerance NOT MET DISCHARGE RECOMMENDATIONS: Juan Jose will benefit from the use of a front wheeled walker for safety. He will benefit from home health PT services in order to progress mobility level using least restrictive assistive ambulatory device, assess home safety, identify additional equipment needs, and establish a functional maintenance program that will increase ability of patient to remain at home. TREATMENT CODE/TIME: CA Thank you for the opportunity to participate in the care of this patient. Nadege Macedo PT, DPT, CLT [facility] [place], [place]
[2020-01-26 12:32] LABS: Streptococcus Pneumoniae Ag, U Negative
== END 2020-01-15 19:53 | disposition left against medical advice (07) | DRG 438 ==
LOC: ER 01-11 02:08 → ICU 01-11 03:23 → MS 01-15 15:59
PROVIDERS: Internal Medicine; Nurse Practitioner Acute Care; Admitting Provider General Practice; Emergency Provider Emergency Medicine; Visit Provider General Practice
DX: K85.20 Alcohol induced acute pancreatitis without necrosis or infection (principal); J69.0 Pneumonitis due to inhalation of food and vomit; F10.232 Alcohol dependence with withdrawal with perceptual disturbance; A04.72 Enterocolitis due to Clostridium difficile, not specified as recurrent; K86.0 Alcohol-induced chronic pancreatitis; I10 Essential (primary) hypertension; E78.5 Hyperlipidemia, unspecified; I25.2 Old myocardial infarction; Z85.07 Personal history of malignant neoplasm of pancreas; F17.210 Nicotine dependence, cigarettes, uncomplicated; R33.9 Retention of urine, unspecified; E83.42 Hypomagnesemia; E87.6 Hypokalemia
CPT/HCPCS: 36410; 36415; 36573; 36592; 80048; 80053; 80076; 80307; 83690; 84145; 85027; 87040; 87077; 87081; 87493; 87505; 93005; 94640; 96361; 96365; 96366; 96375; 96376; 97162; 97530; 99222; 99233; 99285; 99291; J1650; NC; U0003; 71045; 74177; 74181; 80202; 81003; 81015; 83605; 83630; 83735; 83880; 85025; 86140; 87086; 87186; 87205; 87450; 93010; 94667; 99284; J1956; J2060; J2405; J2560; J3360; J3475; J3480; J3490; J7042; Q9967

== ENCOUNTER 2020-01-15 20:25 | Inpatient (IN) | payer MEDICAID, SELFPAY ==
[2020-01-15] VITALS (29 sets, daily range): BP systolic 100–176; BP diastolic 62–120; PULSE 102–166; RESP 15–52; TEMP 36.6; O2SAT 80–96
--- NOTE | 2020-01-15 20:30 | DI.RAD_ITS ---
EXAM: XR KNEE RT 3V AP,LAT,BOWEN CLINICAL HISTORY: ecchymosis, pain. TECHNIQUE: 2D digital imaging was performed. COMPARISON: No exams were available for comparison FINDINGS: BONES: No acute fracture is present. No bony destructive lesion is seen. Enthesophyte superior pole o f the patella. JOINTS: Moderate narrowing of the medial femoral tibial joint, periarticular spurring and sclerosis. Varus angulation at the knee. Chondrocalcinosis. No joint effusion is seen. SOFT TISSUE: Vascular calcifications. IMPRESSION: Degenerative changes greatest of the medial femoral tibial joint. DATA REPOSITORY: RADIATION DOSE DELIVERED:
--- NOTE | 2020-01-15 20:30 | RT.EKG_ITS ---
APPROVED REPORT Exam: Resting ECG Patient Location: E HR:146 bpm ECG Measurements Heart Rate 146 AXIS [place] 148 P 95 QRSd 86 QRS -23 QT 283 T -46 QTc 441 Conclusion Sinus tachycardia. Low voltage, extremity leads wandering baseline
--- NOTE | 2020-01-15 20:35 | ED.GENADUL_ITS ---
Discharge Plan Disposition Patient Disposition: [facility] INPATIENT Condition: Serious Discharge Details Clinical Impression: Pneumonia Admit Date/Time: 01/15/20 22:43 Admit Provider: Alejo Larson Attending Provider: Alejo Larson Primary Care Provider: None,None ED Provider: Chan Manley Discharge Data Discharge Date/Time-TO BE ENTERED AT DEPARTURE: 01/15/20 23:35 Medical Decision Making 59-year-old male who was admitted to the hospital for alcohol dependence, c diff colitis, and aspiration pneumonia. He is reported to have left AGAINST MEDICAL ADVICE. He was found by bystander in a hospital gown at the bottom of [address] and reported to EMS that he had fallen and hit his knees, and rolled down the hill. He denies striking his head. He states he has a persistent cough. Complains also of abdominal pain. Patient arrives tachycardic 140s to 150s, cool to the touch, his exam reveals abrasion of the left humerus, and he also has abrasions and ecchymosis to bilateral knees. States to me that he left the hospital yesterday. He is able to correctly state the month and date. IV access established, fluids initiated, screening labs, EKG, x-ray of the injured knees, as well as CT of the abdomen and pelvis given complaint of abdominal pain and lumbar pain. Well in CT, there is question of infiltration of the IV and the study was converted to noncontrast. Patient's lab noted sodium 131, anion gap of 13 with bicarb of 18. Note of total bili 1.2. Troponin is negative. Albumin 2.2, alcohol negative. CBC reveals a white count 9, hematocrit 39, platelets 179. CT images: Extensive bilateral groundglass infiltrates, urinary bladder distention which is likely due to previous a Tripp catheter, please see formal report. X-ray: degenerative changes, no fracture The patient will require re-admission to the hospital. Case discussed with Dr Larson and patient to be admitted. HPI General Mode of arrival: EMS . Date/Time Provider Initiated Documentation: 01/15/20 20:30 . Limitations to Documentation: no limitations . Information obtained by: patient and EMS . History of Present Illness 59 year old M presents to the emergency department with the chief complaint of Cough, fall, knee injury., described as moderate, Quality is described as dull, and is localized to the left, right and lower extremity. Patient reports no radiation. Patient started experiencing this hour(s) and it has been constant. No relieving factors improve symptom(s), No exacerbating factors reported . Patient notes cough; denies headaches and syncope. Patient did receive the following treatments prior to arrival, none Related Data Home Medications Medication Instructions Recorded Confirmed Unknown [No Known Home Meds] 06/02/19 09/29/19 Allergies Allergy/AdvReac Type Severity Reaction Status Date / Time Penicillins Allergy Unverified 09/29/19 17:52 General DMITRI: 2 Review of Systems Narrative: Feels cold. Has had persistent cough. States to me no alcohol today. Left AGAINST MEDICAL ADVICE from the medical floor today. States he fell and struck his knees. Mild back pain. Denies head/neck/chest or abdomen injury. 8 systems reviewed and otherwise negative [facility] Medical History (Updated 01/17/20 @ 20:24 by Chan Manley MD) HTN (hypertension) Hx of hyperlipidemia Myocardial infarction x 2 Pancreatitis Pancreatitis, chronic Presence of pancreatic duct stent (~01/2018) Steffanie Sears. Surgical History (Updated 01/16/20 @ 10:43 by Elias Espino) S/P ERCP (~01/2018) Sean Sears Social History Smoking/Tobacco Use Status: Current every day Tobacco Type: cigarettes Smoking packs per day: 1 Smoking cigarettes per day: 20.0 Smoking risk assessment performed?: Yes Alcohol Intake: former Drug use: Never Details: reports no drinking or drug use Do you feel safe at home: Yes Do you feel safe in your relationship?: Yes Additional Social history: homeless- living at [facility] Exam Narrative Exam Narrative: GEN: awake, alert, interactive. Skin is cool to the touch. HEAD: Normocephalic, atraumatic ENT: Mucous membranes moist, oropharynx unremarkable, External ear exam unremarkable EYES: PERRL, EOMI NECK: Full ROM, no PAULINA, no menigismus CHEST/RESP: Nontender, scattered rhonchi CARDIOVASCULAR: Tachycardic, no murmur, rub dave. 2+ Rad pulse bilateral ABDOMEN: Soft, tender without rebound or guarding, no mass. +Bowel sounds Back: Minimal lumbar tenderness to palpation without step-off or deformity. EXT: Full ROM, bilateral anterior knee ecchymosis and abrasions. Abrasion left arm overlying humerus. Neuro: Grossly normal neurologic exam, conversant, interactive. Psych: Speech fluent, thoughts congruent, affect normal
[2020-01-15] MEDS: HYDROmorphone 2 MG/ML VIAL 0.5 MG IVP (21:14)
[2020-01-15] MEDS: LORazepam 2 MG/ML VIAL 1 MG IVP (21:14)
[2020-01-15 21:20] LABS: Abs Immature Grans 0.13 10^3/uL (0.0-0.06); Absolute Basophil Count 0.02 10^3/uL (0.0-0.2); Absolute Eosinophil Count 0.02 10^3/uL (0.0-0.7); Absolute Lymphocyte Count 0.87 10^3/uL (1.2-3.4); Absolute Monocyte Count 0.62 10^3/uL (0.1-0.8); Absolute Neutrophil Count 7.73 10^3/uL (1.2-6.7); Basophils % 0.2; Eosinophils % 0.2; HCT 39.1 % (40.0-50.0); HGB 13.4 g/dL (13.5-17.5); Immature Grans % 1.4; Lymphocytes % 9.3; MCH 32.8 pg (27.0-33.0); MCHC 34.3 % (32.0-36.0); MCV 95.8 fL (80-95); MPV 10.6 fL (8.0-11.0); Monocytes % 6.6; Neutrophils % 82.3; Nucleated RBC 0 %; Platelet Count 179 10^3/uL (130-400); RBC 4.08 10^6/uL (4.36-5.78); RDW 14.2 % (11.8-14.1); WBC 9.39 10^3/uL (4.4-10.8)
[2020-01-15 21:40] LABS: ALT 18 U/L (16-63); AST 47 U/L (15-37); Albumin 2.2 g/dL (3.4-5.0); Alkaline Phosphatase 186 U/L (46-116); Ammonia < 10 umol/L (11-32); Anion Gap 13.3 mmol/L (3-11); BUN 5 mg/dL (7-18); Bilirubin, Total 1.2 mg/dL (0.2-1.0); CO2 18.7 mmol/L (21.0-32.0); CREATININE 1.01 mg/dL (0.70-1.30); Calcium 8.2 mg/dL (8.5-10.1); Chloride 99 mmol/L (98-107); Glucose 156 mg/dL (74-106); Magnesium 1.7 mg/dL (1.8-2.4); Potassium 4.4 mmol/L (3.5-5.1); Sodium 131 mmol/L (136-145); Total Protein 6.8 g/dL (6.4-8.2)
--- NOTE | 2020-01-15 21:40 | DI.CT_ITS ---
EXAM: CT CHEST/ABD/PEL WO CLINICAL HISTORY: abdominal pain after fall. TECHNIQUE: Imaging Protocol: Axial computed tomography images with coronal and sagittal reformatted images were created and reviewed CONTRAST MATERIAL: Noncontrast COMPARISON: CT CT ABDOMEN PELVIS W from 01/11/2020 CR XR PORTABLE CHEST AP from 01/15/2020 FINDINGS: The exam is limited by patient motion. There is a small left and tiny right pleural effusion. There is a small pericardial effusion. Heart size appears normal. Coronary artery calcifications are seen. There are calcifications of the aort a but no evidence of aneurysm. There are diffuse bilateral pulmonary infiltrates. There are reactiv e mediastinal lymph nodes. There is considerable motion on the images through the upper abdomen. There is edema seen around the pancreas as well as pancreatic swelling which appears to have worsened when compared the previous ex am, consistent with pancreatitis. There is some dilatation of adjacent duodenum but no evidence of a n abscess or pseudocyst formation. The liver, spleen and kidneys are grossly unremarkable. The gall bladder is not well seen. The urinary bladder is distended. There is air within the urinary bladder , presumably secondary to instrumentation. There is sigmoid diverticulosis but no gross evidence of diverticulitis. The appendix appears normal. There is a fatty containing left inguinal hernia. The abdominal aorta is heavily calcified but normal in diameter. There is no ascites or free air. Dege nerative changes are seen in the spine. IMPRESSION: Findings consistent with worsening of pancreatitis. No evidence of pseudocyst. Bilateral pleural eff usions, left greater than right. Diffuse bilateral pulmonary infiltrates. Distended urinary bladder c ontaining air. RADIATION DOSE DELIVERED: 942.07mGy.cm Total DLP DATA REPOSITORY: All CT scans at this facility are submitted to the National Radiology Data Registry (NRDR) Dose Index Registry (DIR) with the [employer] [place] [employer] (ACR). RADIATION OPTIMIZATION: All CT scans at this facility use at least one of these dose optimization te chniques: automated exposure control; mA and/or kV adjustment per patient size (includes targeted exa ms where dose is matched to clinical indication); or iterative reconstruction.
[2020-01-15 21:41] LABS: Troponin I < 0.05 ng/mL (<0.06)
[2020-01-15 21:44] LABS: ETHANOL BLOOD < 3.0 mg/dL (<3)
--- NOTE | 2020-01-15 22:10 | DI.RAD_ITS ---
EXAM: XR KNEE LT 3V AP,LAT,BOWEN CLINICAL HISTORY: Ecchymosis, pain. TECHNIQUE: 2D digital imaging was performed. COMPARISON: CR,XR XR KNEE RT 3V AP,LAT,BOWEN from 01/15/2020 FINDINGS: BONES: No acute fracture is present. No bony destructive lesion is seen. Small enthesophyte superior pole patella. Enthesophyte tibial tubercle. JOINTS: The knee is normally aligned. No joint effusion is seen. SOFT TISSUE: Vascular calcifications. IMPRESSION: No acute abnormality. DATA REPOSITORY: RADIATION DOSE DELIVERED:
--- NOTE | 2020-01-15 22:19 | DI.VRAD_ITS ---
PROCEDURE INFORMATION: Exam: XR Left Knee Exam date and time: 01/15/2020 10:09 PM Age: 59 years old Clinical indication: Injury or trauma; Fall; Blunt trauma; Knee; Left TECHNIQUE: Imaging protocol: XR Left knee. Views: 3 views. COMPARISON: No relevant prior studies available. FINDINGS: Bones/joints: Unremarkable. Soft tissues: Unremarkable. Vasculature: Vascular calcification. IMPRESSION: 1. No evidence for acute bony injury. If clinical symptoms persist recommend followup film in 7-10 days. 2. Vascular calcification. Dictated and Authenticated by: Pebbles Mulligan MD. Ordering:LESTER Giles MD
--- NOTE | 2020-01-15 22:19 | DI.VRAD_ITS ---
PROCEDURE INFORMATION: Exam: XR Right Knee Exam date and time: 01/15/2020 10:09 PM Age: 59 years old Clinical indication: Injury or trauma; Fall; Blunt trauma; Knee; Right TECHNIQUE: Imaging protocol: XR Right knee. Views: 3 views. COMPARISON: No relevant prior studies available. FINDINGS: Bones/joints: Tricompartmental degenerative changes of the knee. Chondrocalcinosis. No evidence for acute bony injury. No joint effusion. Soft tissues: Unremarkable. Vasculature: Vascular calcification. IMPRESSION: 1. No evidence for acute bony injury. If clinical symptoms persist recommend followup film in 7-10 days. 2. Additional findings as discussed above. Dictated and Authenticated by: Pebbles Mulligan MD. Ordering:LESTER Giles MD
--- NOTE | 2020-01-15 22:25 | W.PM.HP.N ---
Date of service: 01/15/20 Time of Service: 22:25 Assessment and Plan Assessment and plan (1) Aspiration pneumonia: Status: Acute Assessment and plan: Will resume prior abx -- Vanco and Meropenem, with O2 as needed for sat >88% Qualifiers: Laterality: bilateral Lung location: lower lobe of lung (2) C. difficile diarrhea: Status: Acute Assessment and plan: Will resume Flagyl (3) Alcohol withdrawal: Status: Acute Assessment and plan: Seems to have been through it, and evidently has not had time to resume drinking. Nevertheless will place on CIWA in abundance of caution Qualifiers: Complication of substance-induced condition: with perceptual disturbance Qualified Code(s): F10.232 - Alcohol dependence with withdrawal with perceptual disturbance (4) Acute alcoholic pancreatitis: Status: Resolved Assessment and plan: Apparently had resolved. Will try clear liquid, advance as tolerated. History of Present Illness History of Present Illness Chief Complaint: found down Narrative: 59 male had been in for pneumonia, C diff, and alcohol withdrawal with pancreatitis. Is described as having essentially gone through withdrawal and had not been scoring since early this morning. This evening he left AMA and was found by staff on [facility] a short while later. In ER initial findings of note for narrow complex tachycardia at 155 (currently 125 on monitor), bilateral knee abrasions. Knee films negative, CT chest abd show known pneumonia, awaiting formal read but no obvious abd pathology. Has received Dilaudid 0.5 IV for nonpsecific pain and seems to be relatively comfortable at present. Labs of note for WBC 9.3, Na 131, HCO3 18.9, TBili 1.2, AST 49; lipase not done, last 108 on 01/13. Neg trop, neg EtOH. EKG sinus tach. Agrees to readmission. Report from floor is that he stated he wanted to leave in order to smoke and drink. Review of Systems All systems reviewed & are unremarkable except as noted in HPI and below PFSH Medical History HTN (hypertension) Hx of hyperlipidemia Myocardial infarction x 2 Pancreatic cancer with h/o pancreatic stent Pancreatitis Social History Smoking/Tobacco Use Status: Current every day Tobacco Type: cigarettes Smoking packs per day: 1 Smoking cigarettes per day: 20.0 Smoking risk assessment performed?: Yes Alcohol Intake: former Drug use: Never Details: reports no drinking or drug use Do you feel safe at home: Yes Do you feel safe in your relationship?: Yes Additional Social history: homeless- living at [facility] Home Medications and Allergies Home Medications Medication Instructions Recorded Confirmed Type Unknown [No Known Home Meds] 06/02/19 09/29/19 History Allergies Allergy/AdvReac Type Severity Reaction Status Date / Time Penicillins Allergy Unverified 09/29/19 17:52 Exam Narrative Exam Narrative: 165/95, 128 (to my exam), 36.8, 32, 90% 6L. HEENT slight abrasion bridge of nose; neck supple; lungs bronchial but clear; heart ytachy/regular; abdomen soft and NT; extremities w/o edema; neuro Ox2 (staff report he gave correct date earlier0, President is Noe Maciel. Results Labs Result diagrams: 01/15/20 21:11 01/15/20 21:11 Labs: Laboratory Results - last 24 hr 01/15/20 01/15/20 01/15/20 21:11 21:11 21:11 WBC RBC Hgb Hct MCV MCH MCHC RDW Plt Count MPV Immature Gran % Neutrophils % Lymphocytes % Monocytes % Eosinophils % Basophils % Nucleated RBC % Absolute Neutrophils Absolute Lymphocytes Absolute Monocytes Absolute Eosinophils Absolute Basophils Sodium 131 L Potassium 4.4 Chloride 99 Carbon Dioxide 18.7 L Anion Gap 13.3 H BUN 5 L Creatinine 1.01 Estimated GFR/1.73 m2 >= 60.00 Glucose 156 H Calcium 8.2 L Magnesium 1.7 L Total Bilirubin 1.2 H AST 47 H ALT 18 Alkaline Phosphatase 186 H Ammonia < 10 L Troponin I < 0.05 Total Protein 6.8 Albumin 2.2 L Ethyl Alcohol < 3.0 01/15/20 21:11 WBC 9.39 RBC 4.08 L Hgb 13.4 L Hct 39.1 L MCV 95.8 H MCH 32.8 MCHC 34.3 RDW 14.2 H Plt Count 179 MPV 10.6 Immature Gran % 1.4 Neutrophils % 82.3 Lymphocytes % 9.3 Monocytes % 6.6 Eosinophils % 0.2 Basophils % 0.2 Nucleated RBC % 0 Absolute Neutrophils 7.73 H Absolute Lymphocytes 0.87 L Absolute Monocytes 0.62 Absolute Eosinophils 0.02 Absolute Basophils 0.02 Sodium Potassium Chloride Carbon Dioxide Anion Gap BUN Creatinine Estimated GFR/1.73 m2 Glucose Calcium Magnesium Total Bilirubin AST ALT Alkaline Phosphatase Ammonia Troponin I Total Protein Albumin Ethyl Alcohol Last Vital Signs Temp 36.6 C 01/15/20 20:25 Pulse 155 H 01/15/20 20:25 Resp 25 H 01/15/20 20:37 BP 165/95 H 01/15/20 20:25 Pulse Ox 96 01/15/20 20:25 COVID-19 Screening Have you, or household traveled for leisure in last 14 days?: No Had IN PERSON contact w/suspected or confirmed C-19 person: No
[2020-01-15] MEDS: MAGNESIUM SULFATE 1 GM/100 ML BAG IVPB (22:32)
--- NOTE | 2020-01-15 22:45 | DI.VRAD_ITS ---
Addendum created by Pebbles Mulligan MD on 01/15/2020 10:45:21 PM EST: THIS REPORT CONTAINS FINDINGS THAT MAY BE CRITICAL TO PATIENT CARE. The findings were verbally communicated via telephone conference with SANDHYA CORTES at 10:44 PM EST on 01/15/2020. The findings were acknowledged and understood. Initial report created on 01/15/2020 10:45:02 PM EST: PROCEDURE INFORMATION: Exam: CT Chest Without Contrast; Diagnostic Exam date and time: 01/15/2020 9:41 PM Age: 59 years old Clinical indication: Injury or trauma; Generalized; Blunt trauma (contusions or hematomas); Injury date: ; Injury details: Fall, abdominal pain; Patient HX: Fell down hill TECHNIQUE: Imaging protocol: Diagnostic computed tomography of the chest without contrast. Radiation optimization: All CT scans at this facility use at least one of these dose optimization techniques: automated exposure control; mA and/or kV adjustment per patient size (includes targeted exams where dose is matched to clinical indication); or iterative reconstruction. COMPARISON: CT CHEST/ABD/PEL W 18/04/2019 15:17 FINDINGS: Lungs: Extensive bilateral crazy paving like ground-glass infiltrates. Pleural space: Bilateral pleural effusions larger on the right than left. Heart: Coronary artery disease. Small pericardial effusion. Mediastinal space: Hiatal hernia. Aorta: Atherosclerotic disease. Lymph nodes: Mediastinal and hilar lymph nodes. Liver: Hepatic steatosis. Bones/joints: Multilevel degenerative changes of the thoracic spine. Multiple thoracic compression deformities. Degraded image quality from respiratory motion artifact. Cannot confidently rule out rib fracture given degraded image quality. Soft tissues: Dependent edema in the soft tissues of the back. IMPRESSION: 1. Extensive bilateral crazy paving like ground-glass infiltrates of concern for COVID-19. 2. Additional findings as discussed above. THIS REPORT CONTAINS FINDINGS THAT MAY BE CRITICAL TO PATIENT CARE. The findings were verbally communicated via telephone conference with SANDHYA CORTES at 10:44 PM EST on 01/15/2020. The findings were acknowledged and understood. PROCEDURE INFORMATION: Exam: CT Abdomen And Pelvis Without Contrast Exam date and time: 01/15/2020 9:41 PM Age: 59 years old Clinical indication: Injury or trauma; Generalized; Blunt trauma (contusions or hematomas); Injury date: ; Injury details: Fall, abdominal pain; Patient HX: Fell down hill TECHNIQUE: Imaging protocol: Computed tomography of the abdomen and pelvis without contrast. Radiation optimization: All CT scans at this facility use at least one of these dose optimization techniques: automated exposure control; mA and/or kV adjustment per patient size (includes targeted exams where dose is matched to clinical indication); or iterative reconstruction. COMPARISON: CT CHEST/ABD/PEL W 18/04/2019 15:17 FINDINGS: Limitations: Degraded image quality from motion or respiratory artifact. Liver: Hepatic steatosis. Gallbladder and bile ducts: Distended gallbladder. Pancreas: Infiltration of the peripancreatic fat involving the tail of the pancreas in the lesser sac of concern for pancreatitis. Punctate pancreatic calcifications. Spleen: Normal. No splenomegaly. Adrenal glands: Normal. No mass. Kidneys and ureters: Bilateral perirenal fat infiltration. Stomach and bowel: Distended 2nd and 3rd portion of the duodenum. Normal caliber small bowel. Appendix: No evidence of appendicitis. Intraperitoneal space: Unremarkable. No free air. No significant fluid collection. Vasculature: Atherosclerotic disease. Lymph nodes: Unremarkable. No enlarged lymph nodes. Urinary bladder: Distended urinary bladder. The urinary bladder dome is at L5-S1. Air within the distended urinary bladder. If there has not been instrumentation then further evaluation is necessary to determine the etiology of air within the urinary bladder. Reproductive: Unremarkable as visualized. Bones/joints: Multilevel degenerative changes of the thoracic and lumbar spine. Compression deformity of lower thoracic vertebra. Soft tissues: Umbilical hernia with omental fat. Fat distension of the inguinal canals larger on the left than right. Dependent edema in the soft tissues of the back and hips. Focal air in the soft tissues of the left lower anterior abdominal wall without definite skin defect series 5, image 909 may represent an injection site. Other findings: Limitations Degraded image quality from motion artifact. IMPRESSION: 1. The inflammatory changes left upper quadrant of concern for pancreatitis recommend clinical correlation as motion artifact may interfere with interpretation of the film. 2. Urinary bladder distension with free air within the bladder recommend clinical correlation as discussed above. 3. Multiple additional findings as discussed above. THIS REPORT CONTAINS FINDINGS THAT MAY BE CRITICAL TO PATIENT CARE. The findings were verbally communicated via telephone conference with SANDHYA CORTES at 10:44 PM EST on 01/15/2020. The findings were acknowledged and understood. Dictated and Authenticated by: Pebbles Mulligan MD. Ordering:LESTER Giles MD
[2020-01-16] VITALS (197 sets, daily range): BP systolic 55–168; BP diastolic 34–108; PULSE 84–136; RESP 11–53; TEMP 36.3–39; O2SAT 68–100
[2020-01-16] MEDS: metroNIDAZOLE 500 MG/100 ML BAG 100 MG IVPB ×4 (00:06→18:11)
[2020-01-16] MEDS: Normal Saline 1,000 ML 125 ML IV ×2 (00:14→16:28)
[2020-01-16] MEDS: HYDROmorphone 2 MG/ML VIAL IVP ×3 (02:00→16:37)
[2020-01-16] MEDS: ACETAMINOPHEN 1,000 MG/100 ML BTL 400 MG IVPB ×3 (02:54→15:00)
[2020-01-16] MEDS: LORazepam 2 MG/ML VIAL IVP ×2 (03:30→13:38)
[2020-01-16 03:48] LABS: BE -6 mmol/L (-2-3); HCO3 18 mmol/L (22-26); pCO2 27 mmHg (35-45); pH 7.44 (7.35-7.45); pO2 62 mmHg (80-105); sO2 94 % (95-98); tCO2 17 mmol/L (23-27)
[2020-01-16 03:51] LABS: Site Right Radial
[2020-01-16] MEDS: VANCOMYCIN 1,250 MG in Normal Saline 250 ML 166.6666 MG IVPB (04:56)
[2020-01-16 05:52] LABS: HCT 33.4 % (40.0-50.0); HGB 11.5 g/dL (13.5-17.5); MCH 32.7 pg (27.0-33.0); MCHC 34.4 % (32.0-36.0); MCV 94.9 fL (80-95); MPV 10.5 fL (8.0-11.0); Platelet Count 197 10^3/uL (130-400); RBC 3.52 10^6/uL (4.36-5.78); RDW 14.6 % (11.8-14.1); RDW-SD 51.2 fL; WBC 8.06 10^3/uL (4.4-10.8)
[2020-01-16 06:01] LABS: Anion Gap 9.5 mmol/L (3-11); BUN 6 mg/dL (7-18); CO2 20.5 mmol/L (21.0-32.0); Calcium 7.3 mg/dL (8.5-10.1); Chloride 104 mmol/L (98-107); Glucose 128 mg/dL (74-106); Potassium 3.7 mmol/L (3.5-5.1); Sodium 134 mmol/L (136-145)
[2020-01-16] MEDS: Nicotine 21 MG/24 HR PATCH TD (08:07)
[2020-01-16] MEDS: Normal Saline Flush 10 ML SYR IVP ×2 (08:07→14:35)
--- NOTE | 2020-01-16 08:58 | INITIAL_ITS ---
- If Service Date Differs Date of service: 01/16/20 Time of Service: 08:58 Care Management Initial Assess REASON FOR HOSPITALIZATION:: Pneumonia PAST MEDICAL HISTORY/PAST SURGICAL HISTORY:: HTN, Hyperlipidemia, CA x 2, Pancreatic cancer with stent, Substance use disorder PREVIOUS FUNCTIONAL STATUS/SOCIAL/FAMILY SUPPORTS:: Juan Jose lives alone in [facility], he states he is an alcoholic, he is estranged from his family. He rashid s have a addictions recovery specialist Katt, he relies on his recovery support. He does have an ex spouse and a son that he has not seen since he was [age] years old. He uses [facility] for transportation CURRENT FUNCTIONAL STATUS:: Juan Jose is intubated at this time, he has no family to be contacted CM has contacted his addictions recovery specialist who appears to be his only support. Juan Jose may need to be transfered to [facility] for suspected ARDS CM will await update from provider. ADVANCE DIRECTIVES:: None on file, CM is unable to complete with Juan Jose at this time due current acute medical condition. MARY ANN did review [employer] there are no contacts listed. Has patient been provided with info about the portal/API?: No Did the patient sign up for the portal?: No CODE STATUS:: Full Code INSURANCE COVERAGE / FINANCIAL ISSUES:: Medicaid CURRENT HOME/COMMUNITY SERVICES/EQUIPMENT:: [employer] Super[employer], MARY ANN did send a referral to [facility] and spoke with Bhavya in case management services. PRIMARY CARE PHYSICIAN:: None on file CM referred pateint to [facility] last admission. POTENTIAL DISCHARGE NEEDS:: Pending disposition ANTICIPATED BARRIERS TO DISCHARGE:: Juan Jose Oliveros) struggles with sobriety and community support. Barriers to discharge include his ability to accept resources and care for himself at home. TRANSPORTATION:: Via [facility] at time of discharge. PLAN:: Juan Jose was readmitted to ICU level of care last evening after leaving AMA from the hospital. He is receving IV abx and treatment for Cdiff. COVID is being ruled out. He is now intubated and sedated. MARY ANN did contact his addictions recovery specialist who see's him weekly she reports that he has no contact with family or other supports that could help him make medical decisions if he was unable. CM will continue to assess for discharge needs and coordinate supports.
[2020-01-16 09:46] LABS: BE -4 mmol/L (-2-3); HCO3 21 mmol/L (22-26); pCO2 33 mmHg (35-45); pH 7.42 (7.35-7.45); pO2 62 mmHg (80-105); sO2 92 % (95-98); tCO2 19 mmol/L (23-27)
[2020-01-16 09:49] LABS: Site Left Radial
[2020-01-16 10:24] LABS: Lactate 1.4 mmol/L (0.6-1.4)
[2020-01-16 10:39] LABS: Lipase 147 U/L (73-393)
--- NOTE | 2020-01-16 10:40 | PGE_ITS ---
Date of Service Date of service: 01/16/20 Time of Service: 10:40 Assessment and Plan Assessment and plan (1) ARDS (adult respiratory distress syndrome): Status: Acute Assessment and plan: Patient's ABG and CT scan of his chest are consistent with ARDS. He has diffuse groundglass opacifications and a P/F ration on his ABG of 177. I feel that his ARDS is multifactorial including a recent aspiration event during his hospitalization this past week for acute alcohol withdrawal and acute on chronic pancreatitis. He seems to be holding his own on CPAP w/ compensated pH and PCO2 and his oxygen saturation is acceptable (7.42/PCO2 27/PO2 62/SPO2 94%) on BIPAP 13/7, 35% FIO2. However, I expect that he is likely to get worse before long. I spoke w/ him about possibly intubation; unfortunately I do not think he was coherent enough to understand me. His nurse indicated that they had spoken to him earlier about intubation and he indicated that he would want to be intubated if this became necessary. For now I will ask nursing to attempt prone postioning or at least rotating him from side to side. I will keep him NPO and continue broad spectrum antibiotics for pneumonia and C. difficile diarrhea. I will also get echocardiogram to evaluate LV and RV function. While COVID-19 has not been completely excluded it is reassuring that he had a negative SARS-CoV-2 when he was admitted to the hospital on January 10, 2020. Repeat swab from last night is pending at this time. (2) Aspiration pneumonia: Status: Acute Assessment and plan: continue Meropenem and Vancomycin IV for coverage of gram negatives, anaerobes and Staph and Strep. Continue supportive care w/ MDI's bronchodilators and NIPPV however will be prepared to move to intubation if his respiratory status worsens. Case management will attempt to reach family. I understand that he is estranged from his family. Qualifiers: Laterality: bilateral Lung location: lower lobe of lung (3) Acute alcoholic pancreatitis: Status: Resolved Assessment and plan: Per his CT scan of his abdomen last night, there was no abscess or pseudocyst. His hx is such that he had a similar presentation in 2017 at [facility] in which he had acute on chronic pancreatitis and developed acute respiratory failure, had a pancreatic duct leak and large right sided pleural effusion w/ high amylase in an exudative effusion and had an empyema that required chest tube drainage and he ended up w/ pancreatic stent placed per ERCP to treat the pancreatic leak. We may need to refer him for another ERCP. If he is not quickly improving like he did earlier this past weekend, then I will reimage his pancreas and call GI. Qualifiers: Acute pancreatitis complication: unspecified Qualified Code(s): K85.20 - Alcohol induced acute pancreatitis without necrosis or infection (4) C. difficile diarrhea: Status: Acute Assessment and plan: continue IV Flagyl (5) Person under investigation for COVID-19: Status: Acute Assessment and plan: Patient's SARS-CoV-2 was negative from January 10, 2020. Repeat nasal swab was obtained last night and sent off this morning and is pending at this time. Subjective Subjective Interval history since last seen: Patient left the hospital AGAINST MEDICAL ADVICE last night from the medical/surgical floor but was returned to the ER approximately 30 minutes after leaving the building. Patient had been hospitalized for acute alcohol withdrawal along with alcoholic pancreatitis which was complicated by aspiration pneumonia and C. difficile diarrhea. Patient apparently walked to the hospital under his own power and went down hospital [address] and was found by a bystander. Upon return the emergency department he was alert and at least oriented to person and place but was found to be cool to touch and tachycardic and dyspneic. Patient was complaining of abdominal pain but denied any headache or head injury. He reportedly had fallen and rolled down the hill on hospital drive. He was found to have abrasions on his knees and left humerus. Evaluation emergency department included routine labs along with a EKG and CT scan of his chest and abdomen. This showed small bilateral pleural effusions along with diffuse groundglass bilateral opacifications. CT of the abdomen pelvis showed pancreatic edema but no pseudocyst or abscess. Liver spleen and kidneys were unremarkable. He had no ascites no free air. He has diverticulosis without diverticulitis. This morning patient is lethargic but arousable. He is complaining of abdominal pain but no chest pain. Patient is currently on CPAP at 35% respirations nonlabored with oxygen saturations of 92 to 95%. Exam Narrative Exam Narrative: Patient is lethargic but arousable opens his eyes is able to talk to me although it is difficult to understand him through the BiPAP mask and with my PPE on. Seems to keep asking if the air is on. I do not feel that he is appropriately oriented. Disheveled middle-aged male who appears to be older than his stated age of 59 with poor oral hygiene and dry mucous membranes Neck is supple nontender no JVD normal carotid pulses Lungs with diffuse rales and wheezes Heart is regular to slightly tachycardic no appreciable murmur Abdomen with hypoactive bowel sounds soft and diffusely tender Extremities with abrasions over his knees no peripheral edema no peripheral cyanosis but with clubbing of his nails Objective Last Vital Signs Temp 36.8 C 01/16/20 08:02 Pulse 94 H 01/16/20 08:52 Resp 26 H 01/16/20 08:52 BP 144/92 H 01/16/20 08:01 Pulse Ox 92 01/16/20 08:52 Laboratory Results - last 24 hr 01/15/20 01/15/20 01/15/20 21:11 21:11 21:11 WBC RBC Hgb Hct MCV MCH MCHC RDW Plt Count MPV Immature Gran % Neutrophils % Lymphocytes % Monocytes % Eosinophils % Basophils % Nucleated RBC % Absolute Neutrophils Absolute Lymphocytes Absolute Monocytes Absolute Eosinophils Absolute Basophils ABG Sample Site ABG pH ABG pCO2 ABG pO2 ABG HCO3 ABG Total CO2 ABG O2 Saturation ABG Base Excess VBG Lactate FiO2 Sodium 131 L Potassium 4.4 Chloride 99 Carbon Dioxide 18.7 L Anion Gap 13.3 H BUN 5 L Creatinine 1.01 Estimated GFR/1.73 m2 >= 60.00 Glucose 156 H Calcium 8.2 L Magnesium 1.7 L Total Bilirubin 1.2 H AST 47 H ALT 18 Alkaline Phosphatase 186 H Ammonia < 10 L Troponin I < 0.05 Total Protein 6.8 Albumin 2.2 L Vancomycin Trough Ethyl Alcohol < 3.0 01/15/20 01/16/20 01/16/20 21:11 03:39 05:45 WBC 9.39 RBC 4.08 L Hgb 13.4 L Hct 39.1 L MCV 95.8 H MCH 32.8 MCHC 34.3 RDW 14.2 H Plt Count 179 MPV 10.6 Immature Gran % 1.4 Neutrophils % 82.3 Lymphocytes % 9.3 Monocytes % 6.6 Eosinophils % 0.2 Basophils % 0.2 Nucleated RBC % 0 Absolute Neutrophils 7.73 H Absolute Lymphocytes 0.87 L Absolute Monocytes 0.62 Absolute Eosinophils 0.02 Absolute Basophils 0.02 ABG Sample Site Right radial ABG pH 7.44 ABG pCO2 27 L ABG pO2 62 L ABG HCO3 18 L ABG Total CO2 17 L ABG O2 Saturation 94 L ABG Base Excess -6 L VBG Lactate FiO2 35 Sodium Potassium Chloride Carbon Dioxide Anion Gap BUN Creatinine Estimated GFR/1.73 m2 Glucose Calcium Magnesium Total Bilirubin AST ALT Alkaline Phosphatase Ammonia Troponin I Total Protein Albumin Vancomycin Trough 27.0 H* Ethyl Alcohol 01/16/20 01/16/20 01/16/20 05:45 05:45 09:38 WBC 8.06 RBC 3.52 L Hgb 11.5 L Hct 33.4 L MCV 94.9 MCH 32.7 MCHC 34.4 RDW 14.6 H Plt Count 197 MPV 10.5 Immature Gran % Neutrophils % Lymphocytes % Monocytes % Eosinophils % Basophils % Nucleated RBC % Absolute Neutrophils Absolute Lymphocytes Absolute Monocytes Absolute Eosinophils Absolute Basophils ABG Sample Site Left radial ABG pH 7.42 ABG pCO2 33 L ABG pO2 62 L ABG HCO3 21 L ABG Total CO2 19 L ABG O2 Saturation 92 L ABG Base Excess -4 L VBG Lactate FiO2 35 Sodium 134 L Potassium 3.7 Chloride 104 Carbon Dioxide 20.5 L Anion Gap 9.5 BUN 6 L Creatinine 0.80 Estimated GFR/1.73 m2 >= 60.00 Glucose 128 H Calcium 7.3 L Magnesium Total Bilirubin AST ALT Alkaline Phosphatase Ammonia Troponin I Total Protein Albumin Vancomycin Trough Ethyl Alcohol 01/16/20 10:15 WBC RBC Hgb Hct MCV MCH MCHC RDW Plt Count MPV Immature Gran % Neutrophils % Lymphocytes % Monocytes % Eosinophils % Basophils % Nucleated RBC % Absolute Neutrophils Absolute Lymphocytes Absolute Monocytes Absolute Eosinophils Absolute Basophils ABG Sample Site ABG pH ABG pCO2 ABG pO2 ABG HCO3 ABG Total CO2 ABG O2 Saturation ABG Base Excess VBG Lactate 1.4 FiO2 Sodium Potassium Chloride Carbon Dioxide Anion Gap BUN Creatinine Estimated GFR/1.73 m2 Glucose Calcium Magnesium Total Bilirubin AST ALT Alkaline Phosphatase Ammonia Troponin I Total Protein Albumin Vancomycin Trough Ethyl Alcohol
[2020-01-16 10:47] LABS: Troponin I < 0.05 ng/mL (<0.06)
[2020-01-16 10:50] LABS: NT-proBNP 894 pg/mL (<300)
[2020-01-16 10:59] LABS: Procalcitonin 1.7 ng/mL
[2020-01-16 11:00] LABS: FIO2 35 %
[2020-01-16 11:01] LABS: FIO2 35 %
[2020-01-16] MEDS: Enoxaparin 40 MG/0.4 ML SYR SC (11:04)
--- NOTE | 2020-01-16 11:16 | PHA.REVIEW ---
Pharmacy Admission Review - Admission Clinical Review (Last Updated 01/16/20 @ 10:43 by Elias Espino) C. difficile diarrhea (Acute) Aspiration pneumonia (Acute) Alcohol withdrawal (Acute) Penicillins Allergy (Unverified 09/29/19 17:52) Height 5 ft 7 in Weight 70 kg - Renal Dosing Renal Dosing: BUN 6 mg/dL (7-18) L 01/16/20 05:45 Creatinine 0.80 mg/dL (0.70-1.30) 01/16/20 05:45 Medications needing adjustments: Reviewed (CRCL ~91ML/MIN) - Anticoagulation Anticoagulation: Hgb 11.5 g/dL (13.5-17.5) L 01/16/20 05:45 Hct 33.4 % (40.0-50.0) L 01/16/20 05:45 Plt Count 197 10^3/uL (130-400) 01/16/20 05:45 Creatinine 0.80 mg/dL (0.70-1.30) 01/16/20 05:45 DVT Prohphylaxis: Reviewed Medications: Enoxaparin Therapeutic Anticoagulation: N/A - Relevant Labs Sodium 134 mmol/L (136-145) L 01/16/20 05:45 Potassium 3.7 mmol/L (3.5-5.1) 01/16/20 05:45 Chloride 104 mmol/L (98-107) 01/16/20 05:45 Magnesium 1.7 mg/dL (1.8-2.4) L 01/15/20 21:11 Electrolytes, C-Reactive P, ESR: Reviewed - DM Control DM Control: Glucose 128 mg/dL (74-106) H 01/16/20 05:45 Insulin Dosing: N/A - Heart Failure/TN Heart Failure/TN: Troponin I < 0.05 ng/mL (<0.06) 01/16/20 10:15 NT-Pro-B Natriuret Pep 894 pg/mL (<300) H 01/16/20 10:15 - BP Control BP Control: Blood Pressure [Left Arm] 100/62 Blood Pressure [Left Arm] 119/55 Blood Pressure 144/92 Blood Pressure 103/65 Blood Pressure 102/64 Blood Pressure 85/55 Blood Pressure 96/63 Blood Pressure 100/62 Blood Pressure 103/59 Blood Pressure 134/63 Blood Pressure 119/55 Blood Pressure 168/72 Blood Pressure 100/62 If elevated: N/A - Qtc Review If Elevated: N/A (441) - IV to PO Switch IV Medications: Reviewed (IV ABX, IVF and pain meds) - Home Meds Home Med List reviewed: Reviewed (none known) - Current meds Current Medication Order Review: Reviewed - Comments Comments/Follow Ups: pt left AMA yesterday and readmitted last night. possible ARDS currently on CPAP may need central line and possible intubation. covid test pending
[2020-01-16] MEDS: VANCOMYCIN/WATER (PEG) 1.25 GM/250 ML BAG IV (12:39)
[2020-01-16] MEDS: PROPOFOL 1,000 MG/100 ML BTL 37.8 MG IVPB (13:27)
--- NOTE | 2020-01-16 13:30 | DI.RAD_ITS ---
EXAM: XR PORTABLE CHEST AP POST LINE CLINICAL HISTORY: s/p intubation; ARDS TECHNIQUE: 2D digital imaging was performed. COMPARISON: CR XR PORTABLE CHEST AP from 01/15/2020 FINDINGS: An endotracheal tube has been inserted which lies at the level of the clavicles. A right sided centr al venous catheter remains in place. The heart is mildly enlarged and, unchanged. the lungs are sub optimally inflated but show diffuse bilateral infiltrates which appear to have increased when compare d with the previous exam. No effusions are visible. IMPRESSION: Satisfactory placement endotracheal tube. Worsening of diffuse bilateral infiltrates. DATA REPOSITORY: RADIATION DOSE DELIVERED:
--- NOTE | 2020-01-16 13:35 | PDOC.ANES ---
Date of service: 01/16/20 Time of Service: 13:14 Anesthesia Note Request from Dr. Espino for assistance with PUI patient intubation. Allergies reviewed. Patient history reviewed with Dr. Espino. Induction with Lidocaine 100mg, Propofol 200mg and Succhinylcholine 100mg IV at 1311. Easy mask ventilation with OA. Glidescope 4 blade used, grade I view, easy intubation. 7.5 ETT secured at 23 cm at the lip. Bilateral BS. VSS. Propofol infusion managed by Dr. Espino.
[2020-01-16] MEDS: Normal Saline 500 ML 1000 ML IV ×2 (14:00→15:15)
[2020-01-16] MEDS: Vecuronium 10 MG VIAL IVP ×2 (14:25→19:10)
[2020-01-16] MEDS: Pantoprazole 40 MG VIAL IVP (14:35)
[2020-01-16 14:40] LABS: BE -8 mmol/L (-2-3); HCO3 18 mmol/L (22-26); pCO2 36 mmHg (35-45); pH 7.31 (7.35-7.45); pO2 79 mmHg (80-105); sO2 96 % (95-98); tCO2 18 mmol/L (23-27)
[2020-01-16 14:42] LABS: Site Left Radial
[2020-01-16 14:43] LABS: FIO2 50 %
[2020-01-16] MEDS: PROPOFOL 1,000 MG/100 ML BTL 35.7 MG IVPB (15:01)
[2020-01-16] MEDS: Hydrocortisone SOD SUC. 100 MG VIAL IVP (15:56)
--- NOTE | 2020-01-16 16:49 | NUR.NOTE ---
Addendum entered by Floridalma Enriquez 01/16/20 17:14: Norepi running at mcg/min not mg/hr as noted below Original Note: The patient was intubated and desatted to 40% during intubation. We started propofol right after intubation and patient required higher and higher doses of propofol. Patient was on 100mcg/kg/min and still furrowed brow, coughing, chewing tube, fighting vent. Gave 2mg ativan IVP and had to decrease ativan titrated down while BP dropped to 60s/30s. Paused propofol and started a 1L bolus. BP stabilized and re-started propofol. Had to add in norepi and titrate up from 5mg/hr to total of 15mg/hr. Patient back to 100mcg/kg/min of propofol and still agitated. Gave vecuronium 7mg and patient calmed. Able to decreased propofol to 85mctg/kg/min and patient was unresponsive still after an hour of giving the vecuronium. BP labile: went from 80s/40s to 140s/50s to 80/50s in the matter of 15 min without changing the norepi drip or position. Starting 2nd 1L bolus per Dr. Espino. OG was placed and 100ml of clear thick liquid aspirated before getting stomach content. Tubes and lines secure.Nursing Note:
[2020-01-16] MEDS: fentaNYL 100 MCG/2 ML VIAL IVP (17:45)
--- NOTE | 2020-01-16 17:59 | DSE_ITS ---
Date of service: 01/16/20 DS: Diagnosis Discharge Diagnosis (1) ARDS (adult respiratory distress syndrome): Status: Acute Asessment and Plan: Patient developed worsening hypoxemia throughout the afternoon required intubation and mechanical ventilation along with IV sedation. Patient spiked fevers and had repeat blood cultures obtained. Post intubation patient developed hypotension and required fluid boluses including 2 L of IV fluids and was started on norepinephrine drip to maintain a map of 65 mm or better. Patient be transferred to the [facility] medical ICU for further critical care management and multispecialty support. (2) Aspiration pneumonia: Status: Acute Asessment and Plan: Intubation mechanical ventilation along with hemodynamic support and broad-spectrum antibiotics including vancomycin Flagyl and meropenem. (3) Acute alcoholic pancreatitis: Status: Acute Asessment and Plan: Worsening pancreatitis by radiologic imaging despite the fact that his lipase has now normalized. In spite of the lack of signs of pseudocyst or abscess I am concerned that with his fevers and his ARDS that he may have a pancreatic source or even a cholangitis developing. Patient remains on broad-spectrum antibiotics including vancomycin and meropenem and Flagyl. (4) C. difficile diarrhea: Status: Acute Asessment and Plan: Continue treatment with parenteral Flagyl. (5) Person under investigation for COVID-19: Status: Acute Asessment and Plan: Repeat SARS-CoV-2 PCR testing from last night is pending at this time. Initial testing from January 10, 2020 was negative. Discharge Plan Disposition Patient Disposition: [facility] ([facility] Condition: Critical Discharge Details Reason For Visit: PNEUMONIA Admit Date/Time: 01/15/20 22:43 Admit Provider: Alejo Larson Attending Provider: Alejo Larson Primary Care Provider: None,None Hospital Course Hospital Course: 59-year-old male smoker with history of alcoholism previous alcohol withdrawal as well as acute and chronic pancreatitis. He has had previous hos pitalizations in [facility] for acute on chronic pancreatitis complicated by a large right pleural effusion associated with empyema as well as a pancreatic leak that required a pancreatic ductal stent. Patient was hospitalized at [facility] ([facility] January 10, 2020 for acute alcohol withdrawal and acute alcoholic pancreatitis. Patient was treated with phenobarbital and did well with this although prior to responding to treatment of his acute alcohol withdrawal he had severe nausea and vomiting and had an aspiration event requiring parenteral antibiotics. He was initially treated for Levaquin for couple of days and then when I assumed his care on January 12 I put him on meropenem and vancomycin. Over the weekend on January 12 and he developed diarrhea was found to have C. difficile toxin screen positive. He was started on Flagyl and oral vancomycin. The patient was moved out to the medical/surgical floor on Wednesday January 15, 2020 because he was doing so well from his alcohol withdrawal and was not requiring any more phenobarbital and at that point had not had any IV phenobarbital for over 24 hours. Patient's pancreatitis seem to be resolving as his lipase had normalized and his abdominal complaints had resolved and he was actually tolerating a regular diet. However on the evening of January 15, 2020 around 8 PM the patient left the hospital AGAINST MEDICAL ADVICE. He left the hospital and tried walking home but was found down on the ground by a passerby just off the hospital grounds approximately 25 minutes after he left the hospital. He was brought back into the emergency department where he was evaluated and found to be cool to the touch and tachycardic with heart rate in the 140s to 150s found to have abrasion over his left humerus and abrasions and ecchymosis over both knees although at that time he was able to correctly state the month and the date and knew he was in the hospital. ER personnel worked him up including obtaining x-ray of his knees and CT scan of his chest abdomen pelvis which was performed without contrast as well as obtain routine labs. X- ray of his knee showed no fracture and CT images of his chest showed diffuse bilateral groundglass pulmonary infiltrates and some reactive mediastinal lymph nodes and small left and right pleural effusions and a small pericardial effu ajay. CT of the abdomen demonstrated pancreatic edema and dilatation of the adjacent duodenum but no evidence of abscess or pseudocyst. Liver, spleen, kidneys were grossly unremarkable. Urinary bladder was distended and he had sigmoid diverticulosis but no diverticulitis. He had no ascites and no free air. Laboratory studies on admission showed a normal white cell count of 9300 and a hemoglobin of 13.4 g and hematocrit 39% platelet count of 179,000. CMP showed hyponatremia with serum sodium 131 and a low carbon dioxide level 18.7 with an elevated anion gap at 13.3 and a low magnesium of 1.7 and a total bilirubin 1.2 with an alkaline phosphatase of 186 with minimally elevated AST of 47 and a normal ALT of 18. Troponin levels were normal at less than 0.05 and a repeat level the next morning remain normal at less than 0.05. Patient was started on IV fluids and admitted to the intensive care unit on continued broad- spectrum antibiotics including meropenem and vancomycin and Flagyl. Respiratory support was given with CPAP. The next morning on January 16, 2020 I found the patient to be arousable but very lethargic. While he had acceptable oxygen saturation on the CPAP he had significant AA gradient with a P to F ratio of 177 while on 35% CPAP. I reviewed his CT scan and based on the diffuse groundglass opacifications with concern for either ARDS or acute congestive heart failure. Prrox-nc-[id number] ultrasound was performed which showed small pericardial effusion along with normal LV and RV function. In fact RV appear to be underfilled with an obliterated cavity during systole. Dmitb-[id number] ultrasound of his lungs showed diffuse B-lines in both sides in the upper and lower lung zones. Formal echocardiogram was ordered and performed but the results are pending as the study was done late in the afternoon and had to be sent to [facility] to be read by cardiology. Report is pending at this time. During the afternoon of January 16, 2020 he developed significant hypoxemia dropping his saturation into the low 70s while being turned in bed. He was put back in recovery position and his head was elevated and his saturation came back up into the low 90s. Nevertheless I felt at this point he need to be intubated and placed on mechanical ventilation. Nurse pin drafter was contacted for support and she performed intubation using rapid sequence induction with lidocaine and propofol and succinylcholine. See her note for details. 7.5 mm endotracheal tube was placed at 23 cm at the lips and a postintubation chest x- ray was obtained. Patient developed hypotension post intubation required fluid boluses and when he became refractory to IV fluid boluses he received norepinephrine drip to maintain his MAP at 65 [address]. I contacted the [facility] critical care team who after review of his hospital course accepted him in transfer to their MICU. Patient remains in critical condition intubated and sedated on mechanical ventilation. Repeat Covid testing is pending as well as repeat blood cultures. Home Meds and New Rx's Prescriptions: No Action No Known Home Meds RF: 0 DS: Summary Status at Discharge Functional status at discharge: bed bound Overall status at discharge: patient is not back to baseline Mental Status: other (Sedated and intubated) Speech and Movement: other (Sedated and intubated) Mood: other Affect: other Exam Narrative Exam Narrative: Obtunded disheveled male who is poorly responsive to noxious stimuli with labored respirations prior to intubation but now with sedation respirations are nonlabored he is breathing with the ventilator at 17 breaths a minute Lungs with coarse rales and end expiratory wheezes diffusely Heart is tachycardic without appreciable murmur rub Abdomen soft hypoactive bowel sounds nondistended Extremities without peripheral edema he has some abrasions over his knees Psych Mental Status: other Speech and Movement: other (Sedated and intubated) Mood: other Affect: other DS: Data Vitals/I&O Vitals and I&O: Vital Signs Temperature 38.0 C H 01/16/20 15:55 Temperature Source Temporal Artery Scan 01/16/20 15:55 Pulse 101 H 01/16/20 15:50 Pulse 103 H 01/16/20 15:51 Respiratory Rate 30 H 01/16/20 16:30 Respiratory Effort 01/16/20 15:55 Respiratory Depth Deep 01/16/20 15:55 Respiratory Pattern Normal 01/16/20 15:55 Blood Pressure 110/59 L 01/16/20 15:50 Blood Pressure Mean 71 01/16/20 15:50 Blood Pressure Position Supine 01/16/20 04:00 Pulse Oximetry 94 01/16/20 16:30 Respiratory End-tidal CO2 15 01/16/20 16:30 Oxygen Delivery Method Mechanical Ventilator 01/16/20 15:55 Oxygen Flow Rate 0 01/16/20 15:55 Fraction of Inspired Oxygen (FIO2) 50 01/16/20 15:55 Pain Level 6 01/16/20 08:06 Intake & Output 01/15/20 01/16/20 01/16/20 23:59 11:59 23:59 Intake Total 610 / 4240.976 3630.976 / 4240.976 Output Total 1375 / 1800 425 / 1800 Balance -765 / 2440.976 3205.976 / 2440.976 Weight 68.9 kg 70 kg Intake: IV 610 / 4240.976 3630.976 / 4240.976 Output: Gastric Drainage 100 / 100 Oral 100 / 100 Urine 1375 / 1700 325 / 1700 Other: Urine Color Light Trisha Light Trisha Urine Appearance Clear Cloudy Urine Odor Strong Comment Pt making adequate urine. Appximately 70ml/hr over the last 3 hours sharp Voiding Methods Urinal Diaper Data Completed and Pending Labs on day of discharge: Labs from last 24 hours 01/16/20 01/16/20 01/16/20 17:47 12:30 10:15 WBC RBC Hgb Hct MCV MCH MCHC RDW Plt Count MPV Immature Gran % Neutrophils % Lymphocytes % Monocytes % Eosinophils % Basophils % Nucleated RBC % Absolute Neutrophils Absolute Lymphocytes Absolute Monocytes Absolute Eosinophils Absolute Basophils ABG Sample Site Pending Left radial ABG pH Pending 7.31 L ABG pCO2 Pending 36 ABG pO2 Pending 79 L ABG HCO3 Pending 18 L ABG Total CO2 Pending 18 L ABG O2 Saturation Pending 96 ABG Base Excess Pending -8 L VBG Lactate 1.4 Oxygen Liter Flow Asv 120% 5 FiO2 50 Sodium Potassium Chloride Carbon Dioxide Anion Gap BUN Creatinine Estimated GFR/1.73 m2 Glucose Calcium Magnesium Total Bilirubin AST ALT Alkaline Phosphatase Ammonia Troponin I NT-Pro-B Natriuret Pep Total Protein Albumin Lipase Procalcitonin Vancomycin Trough Ethyl Alcohol COVID-19 PCR Nasopharyn COVID-19 PCR Ref Test Perform Site 01/16/20 01/16/20 01/16/20 10:15 10:15 10:15 WBC RBC Hgb Hct MCV MCH MCHC RDW Plt Count MPV Immature Gran % Neutrophils % Lymphocytes % Monocytes % Eosinophils % Basophils % Nucleated RBC % Absolute Neutrophils Absolute Lymphocytes Absolute Monocytes Absolute Eosinophils Absolute Basophils ABG Sample Site ABG pH ABG pCO2 ABG pO2 ABG HCO3 ABG Total CO2 ABG O2 Saturation ABG Base Excess VBG Lactate Oxygen Liter Flow FiO2 Sodium Potassium Chloride Carbon Dioxide Anion Gap BUN Creatinine Estimated GFR/1.73 m2 Glucose Calcium Magnesium Total Bilirubin AST ALT Alkaline Phosphatase Ammonia Troponin I < 0.05 NT-Pro-B Natriuret Pep Total Protein Albumin Lipase 147 Procalcitonin 1.7 Vancomycin Trough Ethyl Alcohol COVID-19 PCR Nasopharyn COVID-19 PCR Ref Test Perform Site 01/16/20 01/16/20 01/16/20 10:15 09:38 08:38 WBC RBC Hgb Hct MCV MCH MCHC RDW Plt Count MPV Immature Gran % Neutrophils % Lymphocytes % Monocytes % Eosinophils % Basophils % Nucleated RBC % Absolute Neutrophils Absolute Lymphocytes Absolute Monocytes Absolute Eosinophils Absolute Basophils ABG Sample Site Left radial Cancelled ABG pH 7.42 Cancelled ABG pCO2 33 L Cancelled ABG pO2 62 L Cancelled ABG HCO3 21 L Cancelled ABG Total CO2 19 L Cancelled ABG O2 Saturation 92 L Cancelled ABG Base Excess -4 L Cancelled VBG Lactate Oxygen Liter Flow Bita cpap 14 Cancelled FiO2 35 Cancelled Sodium Potassium Chloride Carbon Dioxide Anion Gap BUN Creatinine Estimated GFR/1.73 m2 Glucose Calcium Magnesium Total Bilirubin AST ALT Alkaline Phosphatase Ammonia Troponin I NT-Pro-B Natriuret Pep 894 H Total Protein Albumin Lipase Procalcitonin Vancomycin Trough Ethyl Alcohol COVID-19 PCR Nasopharyn COVID-19 PCR Ref Test Perform Site 01/16/20 01/16/20 01/16/20 05:45 05:45 05:45 WBC 8.06 RBC 3.52 L Hgb 11.5 L Hct 33.4 L MCV 94.9 MCH 32.7 MCHC 34.4 RDW 14.6 H Plt Count 197 MPV 10.5 Immature Gran % Neutrophils % Lymphocytes % Monocytes % Eosinophils % Basophils % Nucleated RBC % Absolute Neutrophils Absolute Lymphocytes Absolute Monocytes Absolute Eosinophils Absolute Basophils ABG Sample Site ABG pH ABG pCO2 ABG pO2 ABG HCO3 ABG Total CO2 ABG O2 Saturation ABG Base Excess VBG Lactate Oxygen Liter Flow FiO2 Sodium 134 L Potassium 3.7 Chloride 104 Carbon Dioxide 20.5 L Anion Gap 9.5 BUN 6 L Creatinine 0.80 Estimated GFR/1.73 m2 >= 60.00 Glucose 128 H Calcium 7.3 L Magnesium Total Bilirubin AST ALT Alkaline Phosphatase Ammonia Troponin I NT-Pro-B Natriuret Pep Total Protein Albumin Lipase Procalcitonin Vancomycin Trough 27.0 H* Ethyl Alcohol COVID-19 PCR Nasopharyn COVID-19 PCR Ref Test Perform Site 01/16/20 01/16/20 01/15/20 03:39 00:00 21:11 WBC 9.39 RBC 4.08 L Hgb 13.4 L Hct 39.1 L MCV 95.8 H MCH 32.8 MCHC 34.3 RDW 14.2 H Plt Count 179 MPV 10.6 Immature Gran % 1.4 Neutrophils % 82.3 Lymphocytes % 9.3 Monocytes % 6.6 Eosinophils % 0.2 Basophils % 0.2 Nucleated RBC % 0 Absolute Neutrophils 7.73 H Absolute Lymphocytes 0.87 L Absolute Monocytes 0.62 Absolute Eosinophils 0.02 Absolute Basophils 0.02 ABG Sample Site Right radial ABG pH 7.44 ABG pCO2 27 L ABG pO2 62 L ABG HCO3 18 L ABG Total CO2 17 L ABG O2 Saturation 94 L ABG Base Excess -6 L VBG Lactate Oxygen Liter Flow Bita 13/7 FiO2 35 Sodium Potassium Chloride Carbon Dioxide Anion Gap BUN Creatinine Estimated GFR/1.73 m2 Glucose Calcium Magnesium Total Bilirubin AST ALT Alkaline Phosphatase Ammonia Troponin I NT-Pro-B Natriuret Pep Total Protein Albumin Lipase Procalcitonin Vancomycin Trough Ethyl Alcohol COVID-19 PCR Pending Nasopharyn COVID-19 PCR Pending Ref Test Perform Site Pending 01/15/20 01/15/20 01/15/20 21:11 21:11 21:11 WBC RBC Hgb Hct MCV MCH MCHC RDW Plt Count MPV Immature Gran % Neutrophils % Lymphocytes % Monocytes % Eosinophils % Basophils % Nucleated RBC % Absolute Neutrophils Absolute Lymphocytes Absolute Monocytes Absolute Eosinophils Absolute Basophils ABG Sample Site ABG pH ABG pCO2 ABG pO2 ABG HCO3 ABG Total CO2 ABG O2 Saturation ABG Base Excess VBG Lactate Oxygen Liter Flow FiO2 Sodium 131 L Potassium 4.4 Chloride 99 Carbon Dioxide 18.7 L Anion Gap 13.3 H BUN 5 L Creatinine 1.01 Estimated GFR/1.73 m2 >= 60.00 Glucose 156 H Calcium 8.2 L Magnesium 1.7 L Total Bilirubin 1.2 H AST 47 H ALT 18 Alkaline Phosphatase 186 H Ammonia < 10 L Troponin I < 0.05 NT-Pro-B Natriuret Pep Total Protein 6.8 Albumin 2.2 L Lipase Procalcitonin Vancomycin Trough Ethyl Alcohol < 3.0 COVID-19 PCR Nasopharyn COVID-19 PCR Ref Test Perform Site 01/16/20 14:30 Blood Blood Culture - Pending 01/16/20 10:15 Blood Blood Culture - Pending 01/16/20 09:58 Blood Blood Culture - Pending 01/16/20 09:58 Blood Blood Culture - Pending Preliminary micro results at discharge 01/16/20 14:30 Blood Culture - Pending Blood 01/16/20 10:15 Blood Culture - Pending Blood 01/16/20 09:58 Blood Culture - Pending Blood 01/16/20 09:58 Blood Culture - Pending Blood COUNT INCLUDES [facility] Medical History (Updated 01/16/20 @ 18:02 by Elias Espino) HTN (hypertension) Hx of hyperlipidemia Myocardial infarction x 2 Pancreatitis Pancreatitis, chronic Presence of pancreatic duct stent (~01/2018) Steffanie Sears. Surgical History (Updated 01/16/20 @ 10:43 by Elias Espino) S/P ERCP (~01/2018) Steffanie Sears. Social History Smoking/Tobacco Use Status: Current every day Tobacco Type: cigarettes Smoking packs per day: 1 Smoking cigarettes per day: 20.0 Smoking risk assessment performed?: Yes Alcohol Intake: former Drug use: Never Details: reports no drinking or drug use Do you feel safe at home: Yes Do you feel safe in your relationship?: Yes Additional Social history: homeless- living at [facility]
[2020-01-16 18:16] LABS: BE -11 mmol/L (-2-3); HCO3 17 mmol/L (22-26); pCO2 38 mmHg (35-45); pH 7.25 (7.35-7.45); pO2 48 mmHg (80-105); sO2 80 % (95-98); tCO2 16 mmol/L (23-27)
[2020-01-16] MEDS: PROPOFOL 1,000 MG/100 ML BTL 31.5 MG IVPB ×2 (18:17→19:27)
[2020-01-16 18:18] LABS: FIO2 40 %; Site Left Radial
--- NOTE | 2020-01-16 18:19 | CMPROGNOTE_ITS ---
- If Service Date Differs Date of service: 01/16/20 Time of Service: 18:19 Care Management Progress Note S/O:Juan Jose is intubated and being transferred to [facility] medical ICU. Juan Jose goes by the name of Kal. CM contacted recovery rn which is really Juan Jose only support which he stated to this CM prior to his advanced illness. Katt contact number is [phone] she is actively trying to find family to be contacted however to her knowledge he has not seen his son since he was [age] and has no contact information. Katt agrees to be Juan Jose support person and can be contacted on his behalf. Juan Jose stated girl friend Mira Roque did call and wanted an update her contact number is [phone]. She requested his Wallet and keys which CM declined without permission these cannot be released. According to the Katt the relationship between Juan Jose and Mira is not a genuine one and has not been without difficulty. There are no contacts listed on the [employer] however again verbal permission to contact Katt from the recover center is the only person Juan Jose identified. P: CM will include this information in Juan Jose chart and sent it over to [facility] for follow up by their care managers. Please update Katt with questions or concerns and her team will continue to try and contact family to support Juan Jose through this time.
[2020-01-17 11:03] LABS: COVID-19 RT-PCR UVMMC Result Negative (Negative)
== END 2020-01-16 19:45 | disposition short-term general hospital (02) | DRG 208 ==
LOC: ER 23:39 → ICU 23:43
PROVIDERS: Internal Medicine; Admitting Provider General Practice; Emergency Provider Emergency Medicine; Visit Provider General Practice
DX: J69.0 Pneumonitis due to inhalation of food and vomit (principal); J80 Acute respiratory distress syndrome; K85.20 Alcohol induced acute pancreatitis without necrosis or infection; A04.72 Enterocolitis due to Clostridium difficile, not specified as recurrent; E87.1 Hypo-osmolality and hyponatremia; S80.212A Abrasion, left knee, initial encounter; S80.211A Abrasion, right knee, initial encounter; W18.39XA Other fall on same level, initial encounter; F17.210 Nicotine dependence, cigarettes, uncomplicated
CPT/HCPCS: 36415; 36573; 71045; 71250; 73562; 80048; 80053; 82805; 83690; 84145; 85027; 87040; 87449; 93005; 99222; 99239; 99291; J1650; U0003; 36600; 74176; 80202; 80320; 82140; 83605; 83735; 83880; 84484; 85025; 87070; 87205; 93010; 93306; 94002; J0131; J1720; J2001; J2060; J2704; J3010; J3475

== ENCOUNTER 2020-01-28 08:26 | Inpatient (IN) | payer MEDICAID, SELFPAY ==
[2020-01-28 14:00] VITALS: BP 116/64; PULSE 82; RESP 16; TEMP 37; O2SAT 95
--- NOTE | 2020-01-28 14:39 | DSE_ITS ---
Date of service: 01/28/20 Time of Service: 14:41 DS: Diagnosis Discharge Diagnosis (1) ARDS (adult respiratory distress syndrome): Status: Acute (2) Aspiration pneumonia: Status: Acute (3) Acute on chronic pancreatitis: Status: Acute (4) C. difficile diarrhea: Status: Acute (5) Deep vein thrombosis (DVT) of right upper extremity: Status: Acute (6) Alcoholism /alcohol abuse: Status: Acute (7) COVID-19 ruled out by laboratory testing: Status: Ruled-out Discharge Plan Disposition Patient Disposition: AGAINST MEDICAL ADVICE Condition: Stable Discharge Details Reason For Visit: ACUTE PANCREAITIS,ASPIRATION PNEUMONIA,ARDS(RESOLV Admit Date/Time: 01/28/20 08:26 Admit Provider: Yue Smith Attending Provider: Yue Smith Primary Care Provider: None,None Hospital Course Hospital Course: Mr Colin is a 59 year old male with PMHx of alcohol abuse with recent admission to our facility for acute alcoholic pancreatitis and aspiration pneumonia, resulting in acute hypoxic respiratory failure due to ARDS, requiring intubation and transfer to [facility] on 01/16/2020, and whose admission was complicated by C.Diff colitis and a largue RUE DVT, who was sent back to [facility] from [facility] today for continued work with PT under the swing bed level 1 status, having been stabilized medically. He was extubated on 01/21/2020, off of supplemental oxygen on 01/25/2020. He is no longer on antibiotics for pneumonia, but is still on therapy with PO vancomycin, for which he is to complete a 10 day course of 02/02/2020. He had been on therapeutic lovenox for his RUE DVT, with PICC line pulled at [facility]. The patient was accepted in transfer for Swing bed level 1 admission for PT. However, upon arrival to [facility], is not willing stay and would like to leave [place]. He states that there is nothing we can do to convince him to stay and that his intent is to go home in [place] and smoke marijuana, which naturally, he was instructed not to do. He does agree to draft roller picker his medications (we will send prescriptions for creon, eliquis, and PO vanco). He is instructed to follow up with his PCP SHILA and to return to the hospital should he feel worse. Home Meds and New Rx's Prescriptions: New Eliquis 5 mg tablet 5 mg PO BID Qty: 60 RF: 0 folic acid 1 mg tablet 1 mg PO DAILY Qty: 30 RF: 0 guaifenesin [Mucinex] 600 mg tablet extended release 12hr 600 mg PO BID PRN (Reason: cough) Qty: 20 RF: 0 Creon 12,000-38,000 -60,000 unit capsule,delayed release(DR/EC) 1 cap PO AC & HS Qty: 120 RF: 0 multivitamin Tablet 1 tab PO DAILY Qty: 30 RF: 0 thiamine HCl (vitamin B1) 100 mg tablet 100 mg PO DAILY Qty: 30 RF: 0 vancomycin 250 mg capsule 250 mg PO Q6H 6 Days Qty: 24 RF: 0 No Action No Known Home Meds RF: 0 Discharge Instructions Instructions: Pancrelipase (By mouth), Vancomycin (By mouth), Apixaban (By mouth), Pancreatitis (DC), Deep Vein Thrombosis (DC), C. Diff (Clostridioides Difficile) Infection (DC), Alcohol Withdrawal (DC) Additional Instructions: You are leaving against medical advice and really should stay. Follow up with a PCP as soon as possible. We are referring you to Dr Clark. Finish your oral vancomycin as prescribed. Referrals: Bogdan Clark MD [ [facility] STAFF PHYSICIAN] - Activity:: Activity as Tolerated Equipment/Supplies:: No Equipment Needed Diet:: low fat diet; burundian yogurt twice daily Discharge Orders Discharge Orders: Discharge Order (Routine); Ordered 01/28/20 Ordered By: Yue Smith DS: Summary Status at Discharge Functional status at discharge: independent ambulation Overall status at discharge: patient is progressing back to baseline Mental Status: mental status grossly normal Speech and Movement: speech and movement normal Mood: congruent mood Affect: normal affect Exam Narrative Exam Narrative: General: middle-aged male, A&Ox3, able to talk in complete sentences without appearing short of breath HEENT: EOMI, MMM Heart: RRR, no m/r/g Lungs: Diminished at B bases Abdomen: soft, nontender, nondistended Extremities: no edema BLE and BUE Psych Mental Status: mental status grossly normal Speech and Movement: speech and movement normal Mood: congruent mood Affect: normal affect DS: Data Data Completed and Pending Pending studies at discharge: repeat COVID -19 test (done prior to transfer) [facility] Medical History (Updated 01/28/20 @ 14:43 by Yue Smith MD) HTN (hypertension) Hx of hyperlipidemia Myocardial infarction x 2 Pancreatitis Pancreatitis, chronic Presence of pancreatic duct stent (~01/2018) Steffanie Sears. Surgical History (Updated 01/16/20 @ 10:43 by Elias Espino) S/P ERCP (~01/2018) Steffanie Sears. Social History Smoking/Tobacco Use Status: Current every day Tobacco Type: cigarettes Smoking packs per day: 1 Smoking cigarettes per day: 20.0 Smoking risk assessment performed?: Yes Alcohol Intake: former Drug use: Never Details: reports no drinking or drug use Do you feel safe at home: Yes Do you feel safe in your relationship?: Yes Additional Social history: homeless- living at [facility]
--- NOTE | 2020-01-28 14:44 | HPE_ITS ---
Date of service: 01/28/20 Time of Service: 14:15 Assessment and Plan Assessment and plan (1) ARDS (adult respiratory distress syndrome): Status: Acute (2) Aspiration pneumonia: Status: Acute Qualifiers: Laterality: bilateral Lung location: lower lobe of lung (3) Acute on chronic pancreatitis: Status: Acute (4) C. difficile diarrhea: Status: Acute (5) Deep vein thrombosis (DVT) of right upper extremity: Status: Acute (6) Alcoholism /alcohol abuse: Status: Acute (7) COVID-19 ruled out by laboratory testing: Status: Ruled-out Assessment and plan: Unfortunately, the patient is leaving AMA. We have converted his therapeutic lovenox to eliquis, and as he has been on it for 8 days, he can be transitioned directly to 5 mg PO BID rather than be initiated on 1 week of 10 mg BID. He is to finish PO vanco on 02/01. We are referring him to a PCP. The patient was councilled on dangers of leaving AMA, especially risk of fall and bleeding, and , given the fact that he is being initiated on eliquis. He verbalized understanding. History of Present Illness History of Present Illness Chief Complaint: Sent from [facility] for admission to [facility] for physical therapy Narrative: Mr Colin is a 59 year old male with PMHx of alcohol abuse with recent admission to our facility for acute alcoholic pancreatitis and aspiration pneumonia, resulting in acute hypoxic respiratory failure due to ARDS, requiring intubation and transfer to [facility] on 01/16/2020, and whose admission was complicated by C.Diff colitis and a largue RUE DVT, who was sent back to [facility] from [facility] today for continued work with PT under the swing bed level 1 status, having been stabilized medically. He was extubated on 01/21/2020, off of supplemental oxygen on 01/25/2020. He is no longer on antibiotics for pneumonia, but is still on therapy with PO vancomycin, for which he is to complete a 10 day course of 02/02/2020. He had been on therapeutic lovenox for his RUE DVT, with PICC line pulled at [facility]. The patient was accepted in transfer for Swing bed level 1 admission for PT. However, upon arrival to [facility], is not willing stay and would like to leave AMA. He states that there is nothing we can do to convince him to stay and that his intent is to go home in [place] and smoke marijuana, which naturally, he was instructed not to do. He does agree to chart picker his medications (we will send prescriptions for creon, eliquis, and PO vanco). He is instructed to follow up with his PCP SHILA and to return to the hospital should he feel worse. Review of Systems All systems reviewed & are unremarkable except as noted in HPI and below PFSH Medical History (Updated 01/28/20 @ 14:43 by Yue Smith MD) HTN (hypertension) Hx of hyperlipidemia Myocardial infarction x 2 Pancreatitis Pancreatitis, chronic Presence of pancreatic duct stent (~01/2018) Steffanie Sears. Surgical History (Updated 01/16/20 @ 10:43 by Elias Espino) S/P ERCP (~01/2018) Steffanie Sears. Social History Smoking/Tobacco Use Status: Current every day Tobacco Type: cigarettes Smoking packs per day: 1 Smoking cigarettes per day: 20.0 Smoking risk assessment performed?: Yes Alcohol Intake: former Drug use: Never Details: reports no drinking or drug use Do you feel safe at home: Yes Do you feel safe in your relationship?: Yes Additional Social history: homeless- living at [facility] Home Medications and Allergies Home Medications Medication Instructions Recorded Confirmed Type Unknown [No Known Home Meds] 06/02/19 09/29/19 History apixaban [Eliquis] 5 mg PO BID #60 tab 01/28/20 Rx folic acid 1 mg PO DAILY #30 tab 01/28/20 Rx guaifenesin [Mucinex] 600 mg PO BID PRN #20 tab 01/28/20 Rx [id number] [Creon] 1 cap PO AC & HS #120 cap 01/28/20 Rx multivitamin 1 tab PO DAILY #30 tab 01/28/20 Rx thiamine HCl (vitamin B1) 100 mg PO DAILY #30 tab 01/28/20 Rx vancomycin 250 mg PO Q6H 6 Days #24 cap 01/28/20 Rx Allergies Allergy/AdvReac Type Severity Reaction Status Date / Time Penicillins Allergy Unverified 09/29/19 17:52 Exam Narrative Exam Narrative: General: middle-aged male, A&Ox3, able to talk in complete sentences without appearing short of breath HEENT: EOMI, MMM Heart: RRR, no m/r/g Lungs: Diminished at B bases Abdomen: soft, nontender, nondistended Extremities: no edema BLE and BUE COVID-19 Screening Have you, or household traveled for leisure in last 14 days?: No
--- NOTE | 2020-01-29 09:15 | NT_ITS ---
Date of service: 01/29/20 Time of Service: 09:15 PT Notes Visit Reasons: ACUTE PANCREAITIS,ASPIRATION PNEUMONIA,ARDS(RESOLV Patient left AMA on 01/28/2020. No skilled services provided. Thank you for the opportunity to participate in the care of this patient. Nadege Macedo PT, DPT, CLT [facility] [place], [place]
--- NOTE | 2020-01-29 13:16 | CMPROGNOTE_ITS ---
- If Service Date Differs Date of service: 01/29/20 Time of Service: 13:16 Care Management Progress Note S/O: MARY ANN contacted Ashleigh Horta [facility], and faxed in a prior auth for Vancomycin to [place] medicaid. Medication has been approved and is awaiting his mushroom picker. Juan Jose mynor is not active, MARY ANN contacted his employment coach to get the message to him. Juan Jose left [facility] last evening and has no apparent way to be contacted. flag football coach will call this typewriter operator automatic back once she is able to locate and contact Juan Jose. MARY ANN will continue to attempt reach out to Juan Jose for follow up. P: flag football coach to reach out and follow up with MARY ANN with the results of her follow up with Juan Jose.
--- NOTE | 2020-01-29 13:16 | PDOC.CMPRO ---
- If Service Date Differs Date of service: 01/29/20 Time of Service: 13:16 Care Management Progress Note S/O: MARY ANN contacted Ashleigh Horta [facility], and faxed in a prior auth for Vancomycin to [place] medicaid. Medication has been approved and is awaiting his fern picker. Juan Jose mynor is not active, MARY ANN contacted his motor coach bus driver to get the message to him. Juan Jose left [facility] last evening and has no apparent way to be contacted. volleyball assistant coach will call this commercial underwriter back once she is able to locate and contact Juan Jose. MARY ANN will continue to attempt reach out to Juan Jose for follow up. P: volleyball assistant coach to reach out and follow up with MARY ANN with the results of her follow up with Juan Jose.
== END 2020-01-28 15:38 | disposition left against medical advice (07) | DRG 177 ==
PROVIDERS: Admitting Provider Internal Medicine; Visit Provider Internal Medicine
DX: J69.0 Pneumonitis due to inhalation of food and vomit (principal); J80 Acute respiratory distress syndrome; K85.20 Alcohol induced acute pancreatitis without necrosis or infection; K86.0 Alcohol-induced chronic pancreatitis; A04.72 Enterocolitis due to Clostridium difficile, not specified as recurrent; I82.621 Acute embolism and thrombosis of deep veins of right upper extremity; I10 Essential (primary) hypertension; E78.5 Hyperlipidemia, unspecified; I25.2 Old myocardial infarction; F17.210 Nicotine dependence, cigarettes, uncomplicated; Z59.0 Homelessness
CPT/HCPCS: 99306; 99316

== ENCOUNTER 2020-02-04 14:44 | Inpatient (IN) | payer MEDICAID, SELFPAY ==
[2020-02-04] VITALS (71 sets, daily range): BP systolic 106–167; BP diastolic 59–113; PULSE 98–116; RESP 17–36; TEMP 36.6–37; O2SAT 92–100
--- NOTE | 2020-02-04 14:30 | RT.EKG_ITS ---
APPROVED REPORT Exam: Resting ECG Patient Location: E HR:115 bpm ECG Measurements Heart Rate 115 AXIS NV 149 P 62 QRSd 86 QRS -12 QT 334 T 49 QTc 463 Conclusion Sinus tachycardia...rate> 99 Probable left atrial enlargement...P >50mS, <-0.10mV V1 Low voltage, extremity leads...all extremity leads <0.5mV I have reviewed and interpreted ECG and agree with software generated interpretation.
--- NOTE | 2020-02-04 14:54 | ED.GENADUL_ITS ---
Discharge Plan Disposition Patient Disposition: [facility] INPATIENT Condition: Stable Discharge Details Clinical Impression: Acute pancreatitis, Pneumonia Admit Date/Time: 02/04/20 16:37 Admit Provider: Jaspreet Duvall Attending Provider: Jaspreet Duvall Primary Care Provider: None,None ED Provider: Emi Diane Discharge Data Discharge Date/Time-TO BE ENTERED AT DEPARTURE: 02/04/20 18:25 Medical Decision Making 1500 -- 59-year-old male with multiple medical problems including chronic alcohol abuse for which he quit 1 week ago, chronic pancreatitis, hypertension, hyperlipidemia and recent prolonged hospital stay for pneumonia complicated by ARDS requiring intubation and transfer to [facility], C. difficile diarrhea and upper extremity DVT currently on PO vanc and eliquis after leaving AMA from here last week presents for his usual abdominal pain c/w his pancreatitis. Blood pressure mildly hypertensive. Heart rate 110s. He EKG notes a rate of 115, sinus with no acute ST-T wave ischemic findings. Patient is alert and oriented x3 and appears nontoxic. He is requesting IV Dilaudid. His abdomen is soft without rigidity or guarding but subjectively tender. We will give a dose of IV Tylenol, check screening labs, CT chest abdomen and pelvis. Labs and imaging reviewed. White blood cell count 17. Normal coagulation studies. Magnesium 1.5. Lipase 746. CT chest abdomen and pelvis notes: IMPRESSION: 1. No definite evidence for pulmonary embolus. 2. Interstitial and ground-glass changes in the lungs are nonspecific. Viral process is a consideration. Clinical correlation with COVID-19 status recommended if not already performed. 3. Changes of acute pancreatitis. There may be a left upper quadrant pseudocyst forming. There appear to be changes of chronic pancreatitis and possible ductal obstruction. Follow-up recommended. 1600 -- Patient reassessed and still complaining of continued pain. Will give a dose of Dilaudid as presentation appear consistent with acute pancreatitis. He remains tachycardic but appears nontoxic. We will also cover for possible pneumonia. As he is already on oral vancomycin, will start IV meropenem and Levaquin. Rapid Covid swab obtained and negative. Patient is agreeable with plan for admission. Case discussed with hospitalist who accepts patient for admission. Medical Records Medical records reviewed: Yes I reviewed the patient's medical records. Imaging Data Radiologic Study: Radiologist's impression: CT Angiography Chest With Contrast Exam date and time: 02/04/2020 4:06 PM Age: 59 years old Clinical indication: Chest pain; Abdominal pain; Acute TECHNIQUE: Imaging protocol: Computed tomographic angiography of the chest with intravenous contrast. 3D rendering (Not supervised by radiologist): MIP and/or 3D reconstructed images were created by the technologist. COMPARISON: CT CHEST/ABD/PEL WO 01/15/2020 9:30 PM FINDINGS: Pulmonary arteries: Normal. No pulmonary emboli. Aorta: Unremarkable. No aortic aneurysm. No aortic dissection. Lungs: There is some scattered ill-defined ground-glass opacity seen in both upper lobes right worse than left with some lingular and right middle lobe involvement. There is very mild interstitial prominence at the lung bases. Pleural space: Unremarkable. No pneumothorax. No pleural effusion. Heart: Coronary artery calcifications/stents noted. Lymph nodes: Unremarkable. No enlarged lymph nodes. Bones/joints: Unremarkable. No acute fracture. Soft tissues: Unremarkable. Other findings: Respiratory motion slightly limits the exam. IMPRESSION: 1. No definite evidence for pulmonary embolus. 2. Interstitial and ground-glass changes in the lungs are nonspecific. Viral process is a consideration. Clinical correlation with COVID-19 status recommended if not already performed. CT Angiography Abdomen With Contrast Exam date and time: 02/04/2020 4:06 PM Age: 59 years old Clinical indication: Chest pain; Abdominal pain; Acute TECHNIQUE: Imaging protocol: Computed tomographic angiography images of the abdomen with intravenous contrast material. 3D rendering (Not supervised by radiologist): MIP and/or 3D reconstructed images were created by the technologist. COMPARISON: CT CHEST/ABD/PEL WO 01/15/2020 9:30 PM FINDINGS: Aorta: Severe atherosclerotic change present in the vasculature. Celiac trunk and mesenteric arteries: No occlusion or significant stenosis. Renal arteries: No occlusion or significant stenosis. Liver: Normal. No mass. Gallbladder and bile ducts: Gallbladder contracted. Pancreas: There is moderate to severe peripancreatic soft tissue stranding. There is pancreatic ductal dilatation measuring up to 1 cm. There is some fluid attenuation at the level of the pancreatic tail and splenic hilum, poorly defined. It measures approximately 2.6 by 5.2 cm. There are dystrophic calcifications at the level of the pancreatic head suggesting a degree of chronic pancreatitis. Spleen: Normal. No splenomegaly. Adrenals: Normal. No mass. Kidneys and ureters: Normal. No hydronephrosis. Stomach and bowel: Unremarkable. No obstruction. No mucosal thickening. Lymph nodes: Unremarkable. No enlarged lymph nodes. Intraperitoneal space: Unremarkable. No free air. No significant fluid collection. Bones/joints: Unremarkable. No acute fracture. No dislocation. Soft tissues: Unremarkable. IMPRESSION: Changes of acute pancreatitis. There may be a left upper quadrant pseudocyst forming. There appear to be changes of chronic pancreatitis and possible ductal obstruction. Follow-up recommended. Lab Data Lab results reviewed: Yes I reviewed the patient's lab results. Labs: Laboratory Tests Range/Units 02/04/20 02/04/20 02/04/20 15:00 15:00 15:00 WBC (4.4-10.8) 10^3/uL 17.97 H RBC (4.36-5.78) 10^6/uL 3.77 L Hgb (13.5-17.5) g/dL 12.0 L Hct (40.0-50.0) % 37.2 L MCV (80-95) fL 98.7 H MCH (27.0-33.0) pg 31.8 MCHC (32.0-36.0) % 32.3 RDW (11.8-14.1) % 14.6 H Plt Count (130-400) 10^3/uL 706 H D MPV (8.0-11.0) fL 9.0 Immature Gran % 0.5 Neutrophils % 87.4 Lymphocytes % 8.1 Monocytes % 3.5 Eosinophils % 0.2 Basophils % 0.3 Nucleated RBC % % 0 Absolute Neutrophils (1.2-6.7) 10^3/uL 15.71 H Absolute Lymphocytes (1.2-3.4) 10^3/uL 1.46 Absolute Monocytes (0.1-0.8) 10^3/uL 0.63 Absolute Eosinophils (0.0-0.7) 10^3/uL 0.04 Absolute Basophils (0.0-0.2) 10^3/uL 0.05 PT (9.3-11.0) sec 10.8 INR (0.9-1.1) 1.1 APTT (21.0-27.5) sec 26.2 Sodium (136-145) mmol/L 137 Potassium (3.5-5.1) mmol/L 3.6 Chloride (98-107) mmol/L 102 Carbon Dioxide (21.0-32.0) mmol/L 26.8 Anion Gap (3-11) mmol/L 8.2 BUN (7-18) mg/dL 3 L Creatinine (0.70-1.30) mg/dL 0.80 Estimated GFR/1.73 m2 (mL/min/1.73m2) >= 60.00 Glucose (74-106) mg/dL 162 H Calcium (8.5-10.1) mg/dL 8.6 Magnesium (1.8-2.4) mg/dL 1.5 L Total Bilirubin (0.2-1.0) mg/dL 0.3 AST (15-37) U/L 18 ALT (16-63) U/L 21 Alkaline Phosphatase (46-116) U/L 156 H Troponin I (<0.06) ng/mL < 0.05 Total Protein (6.4-8.2) g/dL 7.7 Albumin (3.4-5.0) g/dL 2.7 L Lipase (73-393) U/L 746 H ECG Data Attestation: I personally reviewed and interpreted this ECG (s) as follows: Interpretation: Rate of 115, sinus, no acute ST elevation or depression. SD 149. QRS 86. QTc 463. HPI General Mode of arrival: EMS . Date/Time Provider Initiated Documentation: 02/04/20 14:47 . Limitations to Documentation: no limitations . Information obtained by: patient . HPI Narrative: Patient is a 59-year-old male with a longstanding history of alcohol abuse who states he has quit for the past week, history of pancreatitis, [place], hypertension, hyperlipidemia and recent prolonged hospital stay for pneumonia complicated by R, C. difficile diarrhea and upper extremity DVT presents for return of his chronic abdominal pain since last night. Patient states he was discharged from [facility] last week but records note that he left AMA twice in the past 2 weeks. He was transferred to [facility] last month for pneumonia and was transferred back to [facility] swing bed for continued PT. He left AMA from the hospital last week. He is on Eliquis, p.o. vancomycin and Creon. He states his abdominal pain is constant, diffuse, sharp and located all over his abdomen. He also admits to chest pain and shortness of breath. He denies any fever. He admits to cough with green sputum. He is unsure of all of his medications but states that his girlfriend usually handles this. Related Data Home Medications Medication Instructions Recorded Confirmed apixaban [Eliquis] 5 mg PO BID #60 tab 01/28/20 02/04/20 folic acid 1 mg PO DAILY #30 tab 01/28/20 02/04/20 guaifenesin [Mucinex] 600 mg PO BID PRN #20 tab 01/28/20 02/04/20 [id number] [Creon] 1 cap PO AC & HS #120 cap 01/28/20 02/04/20 multivitamin 1 tab PO DAILY #30 tab 01/28/20 02/04/20 thiamine HCl (vitamin B1) 100 mg PO DAILY #30 tab 01/28/20 02/04/20 vancomycin 250 mg PO QID 02/04/20 02/04/20 Previous Rx's Medication Instructions Recorded apixaban [Eliquis] 5 mg PO BID #60 tab 01/28/20 folic acid 1 mg PO DAILY #30 tab 01/28/20 guaifenesin [Mucinex] 600 mg PO BID PRN #20 tab 01/28/20 [id number] [Creon] 1 cap PO AC & HS #120 cap 01/28/20 multivitamin 1 tab PO DAILY #30 tab 01/28/20 thiamine HCl (vitamin B1) 100 mg PO DAILY #30 tab 01/28/20 Allergies Allergy/AdvReac Type Severity Reaction Status Date / Time Penicillins Allergy Unverified 02/04/20 14:55 General Stated Complaint: Abd Prob DMITRI: 2 Review of Systems All systems reviewed & are unremarkable except as noted in HPI and below Constitutional Constitutional: Reports as per HPI, Denies chills and Denies fever(s) Eyes Eyes: Denies blurry vision ENT Ears, Nose, Mouth, and Throat: Denies dizziness, Denies sore throat and Denies throat swelling Cardiovascular Cardiovascular: Denies chest pain and Denies dyspnea Respiratory Respiratory: Denies cough and Denies dyspnea Gastrointestinal Gastrointestinal: Reports abdominal pain, Denies diarrhea and Denies vomiting Genitourinary Genitourinary: Denies hematuria and Denies dysuria Musculoskeletal Musculoskeletal: Denies back pain and Denies numbness Integumentary/Breasts Skin/Breast: Denies lesions and Denies rash Neurologic Neurologic: Denies dizziness, Denies localized weakness and Denies numbness Allergic/Immunologic Allergic/Immunologic: Denies throat swelling [facility] Medical History HTN (hypertension) Hx of hyperlipidemia Myocardial infarction x 2 Pancreatitis Pancreatitis, chronic Presence of pancreatic duct stent (~01/2018) Sean Sears Surgical History S/P ERCP (~01/2018) Sean Sears Social History Smoking/Tobacco Use Status: Current every day Tobacco Type: cigarettes Smoking packs per day: 1 Smoking cigarettes per day: 20.0 Smoking risk assessment performed?: Yes Alcohol Intake: former Drug use: Never Details: reports no drinking or drug use Do you feel safe at home: Yes Do you feel safe in your relationship?: Yes Exam Const General: cooperative, no acute distress and ill appearing chronically Orientation: alert, awake and oriented x3 HENMT Head: normal to inspection Face and sinus: normal facial exam Eyes General: appearance normal, both eyes and all related structures Pupils: PERRL EOM: EOM intact bilaterally Neck Neck: normal visual inspection and No submandibular swelling Lymphatic: no lymphadenopathy noted Chest Chest: normal inspection of the chest and no tenderness Resp Effort & Inspection: normal respiratory effort and able to speak in complete sentences Auscultation: clear to auscultation bilaterally Cardio Rate: regular rate Rhythm: regular rhythm GI Inspection: normal to inspection Palpation: soft, not firm, not rigid and nontender Auscultation: normal bowel sounds Male General Exam: Yes normal external exam Back/Spine/Pelvis Thoracic/Lumbar Spine: thoracic and lumbar spine normal to inspection Pelvis: no pain with anterior-posterior compression Skin General skin exam: no rashes or lesions noted Neuro General: patient alert, patient awake and patient oriented x3 Cognition: normal cognition Speech: speech normal Motor: muscle tone normal throughout Sensory Exam: no sensory deficits noted Extrem General: normal to inspection, full ROM, capillary refill normal, no calf tenderness bilaterally and no edema Psych Appearance: grossly normal Mental Status: mental status grossly normal Speech and Movement: speech and movement normal Affect: normal affect Course Vital Signs Vital signs: Vital Signs Temperature 97.9 F 02/04/20 14:47 Pulse 116 H 02/04/20 14:47 Respiratory Rate 30 H 02/04/20 14:47 Blood Pressure 166/87 H 02/04/20 14:47 Pulse Oximetry 99 02/04/20 14:47 Temperature 97.9 F 02/04/20 14:47 Temperature Source Temporal Artery Scan 02/04/20 14:47 Pulse 116 H 02/04/20 14:47 Respiratory Rate 30 H 02/04/20 14:47 Blood Pressure 166/87 H 02/04/20 14:47 Blood Pressure Position Supine 02/04/20 14:47 Pulse Oximetry 99 02/04/20 14:47 Oxygen Delivery Method Room Air 02/04/20 14:47 Oxygen Flow Rate 0 02/04/20 14:47 Pain Level 10 02/04/20 14:47
[2020-02-04 15:12] LABS: Abs Immature Grans 0.09 10^3/uL (0.0-0.06); Absolute Basophil Count 0.05 10^3/uL (0.0-0.2); Absolute Eosinophil Count 0.04 10^3/uL (0.0-0.7); Absolute Monocyte Count 0.63 10^3/uL (0.1-0.8); Absolute Neutrophil Count 15.71 10^3/uL (1.2-6.7); Basophils % 0.3; Eosinophils % 0.2; HCT 37.2 % (40.0-50.0); Immature Grans % 0.5; Lymphocytes % 8.1; MCH 31.8 pg (27.0-33.0); MCHC 32.3 % (32.0-36.0); MCV 98.7 fL (80-95); Monocytes % 3.5; Neutrophils % 87.4; Nucleated RBC 0 %; RBC 3.77 10^6/uL (4.36-5.78); RDW 14.6 % (11.8-14.1); RDW-SD 52.8 fL; WBC 17.97 10^3/uL (4.4-10.8)
[2020-02-04] MEDS: ACETAMINOPHEN 1,000 MG/100 ML BTL 400 MG IVPB (15:13)
[2020-02-04] MEDS: Normal Saline 1,000 ML 1000 ML IV ×2 (15:13→17:04)
[2020-02-04 15:15] LABS: Absolute Lymphocyte Count 1.46 10^3/uL (1.2-3.4)
--- NOTE | 2020-02-04 15:15 | DI.CT_ITS ---
EXAM: CT CHEST PE ABD PELVIS W CLINICAL HISTORY: chest pain, sob, abd pain. TECHNIQUE: Imaging Protocol: Axial CT angiography was performed with multi-slice acquisition and m ulti-planar and/or 3D reconstructions. CONTRAST MATERIAL: Intravenous: Omnipaque 350 Contrast volume:100 ml Oral: None COMPARISON: CT CT CHEST/ABD/PEL WO from 01/15/2020 FINDINGS: CHEST: PULMONARY ARTERIES: There are no obvious intra-arterial filling defects to suggest the presence of ac hamilton pulmonary emboli. LUNGS: There are scattered ill-defined ground-glass opacities seen bilaterally although the amount of involvement is less than was evident on the prior study of 01/15/2020. There presently no pleural e ffusions.. No focal findings in the trachea and mainstem bronchi. There is no bronchiectasis. MEDIASTINUM: There is no hilar nor mediastinal adenopathy. Visualized thyroid unremarkable. CARDIAC: Heart size is normal. There is no pericardial effusion. There is no significant shift of t he interventricular septum.Caliber of the thoracic aorta is within normal limits. No evidence of aor tic dissection. OSSEOUS: No lytic osseous lesions identified. ABDOMEN: There is no ascites. LIVER: There are no focal hepatic lesions nor dilatation of intrahepatic ducts. GALLBLADDER/BILIARY: Gallbladder size is normal. There are no obvious gallstones but the gallbladder wall is uniformly slightly thickened but not grossly edematous. CBD is not dilated. CBD is not dil ated. PANCREAS: There are multiple parenchymal calcifications in the pancreas and there is evidence of acut e pancreatitis and significant dilatation of the pancreatic duct which exhibits maximum diameter of 1 1 millimeters just anterior to the portal vein confluence. There is increasing fluid with probable e marcelle pseudocyst cyst formation around the pancreatic tail, more so than previous. The most concentra ricardo calcifications are in the pancreatic head but there is no distinct obvious mass at this level. SPLEEN: Spleen is not enlarged. There are no intrasplenic lesions. The splenic vein passes through w hat appears to be a forming pseudocyst and is at risk for thrombosis. Remainder of the splenic vein is patent as is the portal vein and superior mesenteric vein. ADRENALS: Right adrenal gland unremarkable. Small nodule left adrenal gland which is immediately adj acent to the fluid from the pancreas. The medial limb of these left adrenal gland appears unremarkab le. KIDNEYS: No calculi nor hydronephrosis. No solid renal masses. No cysts evident. ABDOMINAL AORTA: The abdominal aorta is heavily calcified. Celiac and superior mesenteric arteries a re patent. Inferior mesenteric artery is patent. There is no evidence of abdominal aortic aneurysm. The common iliac arteries are heavily calcified but not enlarged. There is no para-aortic adenopat hy. ABDOMINAL WALL/GI: No evidence of signature anterior abdominal wall hernia. No bowel obstruction. PELVIS: LYMPH NODES: There is no intrapelvic nor inguinal adenopathy. GI: No evidence of appendicitis.Sigmoid diverticula but no evidence of acute diverticulitis. URINARY BLADDER: Urinary bladder is distended. No obvious mass nor calculi therein REPRODUCTIVE: Prostate upper normal size. OSSEOUS: No significant osseous lesions. IMPRESSION: 1. No evidence of acute pulmonary emboli nor pulmonary infarction. 2. There interstitial and ground-glass changes in the lung ryan although the amount of lung involve ment appears to have significantly decreased when compared to the recent CT scan of 01/15/2020. Jaylon mmend appropriate testing, including Covid-19. There presently no pleural effusions. The pleural e ffusion on the left side which was present on the prior study is no longer seen. There is no intrath oracic adenopathy. 3. There are findings of acute pancreatitis which have progressed when compared to 01/15/2020 and are again noted be associated with significant dilatation of the pancreatic duct and abundant pancreatic parenchymal calcifications. Findings are probably a superimposed upon an element of chronic pancrea titis with an element of ductal obstruction. The pancreatic duct measures up to 11 millimeters. Can not exclude a subtle CT occult mass-neoplasm in the pancreas. Developing pseudocyst formation around the pancreatic tail and splenic hilum region. This patient is at risk for thrombosis for developing thrombosis of the splenic vein. 4. Distended urinary bladder. RADIATION DOSE DELIVERED: 1,225.53mGy.cm Total DLP 1,225.53mGy.cm Total DLP DATA REPOSITORY: All CT scans at this facility are submitted to the National Radiology Data Registry (NRDR) Dose Index Registry (DIR) with the [employer] ([employer]). RADIATION OPTIMIZATION: All CT scans at this facility use at least one of these dose optimization te chniques: automated exposure control; mA and/or kV adjustment per patient size (includes targeted exa ms where dose is matched to clinical indication); or iterative reconstruction.
[2020-02-04 15:26] LABS: INR 1.1 (0.9-1.1); PTT Activated 26.2 sec (21.0-27.5); Prothrombin Time 10.8 sec (9.3-11.0)
[2020-02-04 15:31] LABS: Platelet Count 706 10^3/uL (130-400)
[2020-02-04] MEDS: Ondansetron 4 MG/2 ML VIAL IVP (15:34)
[2020-02-04 15:35] LABS: ALT 21 U/L (16-63); AST 18 U/L (15-37); Albumin 2.7 g/dL (3.4-5.0); Alkaline Phosphatase 156 U/L (46-116); Anion Gap 8.2 mmol/L (3-11); BUN 3 mg/dL (7-18); Bilirubin, Total 0.3 mg/dL (0.2-1.0); CO2 26.8 mmol/L (21.0-32.0); Calcium 8.6 mg/dL (8.5-10.1); Chloride 102 mmol/L (98-107); Glucose 162 mg/dL (74-106); Lipase 746 U/L (73-393); Magnesium 1.5 mg/dL (1.8-2.4); Potassium 3.6 mmol/L (3.5-5.1); Sodium 137 mmol/L (136-145); Total Protein 7.7 g/dL (6.4-8.2); Troponin I < 0.05 ng/mL (<0.06)
--- NOTE | 2020-02-04 16:35 | DI.VRAD_ITS ---
PROCEDURE INFORMATION: Exam: CT Angiography Chest With Contrast Exam date and time: 02/04/2020 4:06 PM Age: 59 years old Clinical indication: Chest pain; Abdominal pain; Acute TECHNIQUE: Imaging protocol: Computed tomographic angiography of the chest with intravenous contrast. 3D rendering (Not supervised by radiologist): MIP and/or 3D reconstructed images were created by the technologist. COMPARISON: CT CHEST/ABD/PEL WO 01/15/2020 9:30 PM FINDINGS: Pulmonary arteries: Normal. No pulmonary emboli. Aorta: Unremarkable. No aortic aneurysm. No aortic dissection. Lungs: There is some scattered ill-defined ground-glass opacity seen in both upper lobes right worse than left with some lingular and right middle lobe involvement. There is very mild interstitial prominence at the lung bases. Pleural space: Unremarkable. No pneumothorax. No pleural effusion. Heart: Coronary artery calcifications/stents noted. Lymph nodes: Unremarkable. No enlarged lymph nodes. Bones/joints: Unremarkable. No acute fracture. Soft tissues: Unremarkable. Other findings: Respiratory motion slightly limits the exam. IMPRESSION: 1. No definite evidence for pulmonary embolus. 2. Interstitial and ground-glass changes in the lungs are nonspecific. Viral process is a consideration. Clinical correlation with COVID-19 status recommended if not already performed. PROCEDURE INFORMATION: Exam: CT Angiography Abdomen With Contrast Exam date and time: 02/04/2020 4:06 PM Age: 59 years old Clinical indication: Chest pain; Abdominal pain; Acute TECHNIQUE: Imaging protocol: Computed tomographic angiography images of the abdomen with intravenous contrast material. 3D rendering (Not supervised by radiologist): MIP and/or 3D reconstructed images were created by the technologist. COMPARISON: CT CHEST/ABD/PEL WO 01/15/2020 9:30 PM FINDINGS: Aorta: Severe atherosclerotic change present in the vasculature. Celiac trunk and mesenteric arteries: No occlusion or significant stenosis. Renal arteries: No occlusion or significant stenosis. Liver: Normal. No mass. Gallbladder and bile ducts: Gallbladder contracted. Pancreas: There is moderate to severe peripancreatic soft tissue stranding. There is pancreatic ductal dilatation measuring up to 1 cm. There is some fluid attenuation at the level of the pancreatic tail and splenic hilum, poorly defined. It measures approximately 2.6 by 5.2 cm. There are dystrophic calcifications at the level of the pancreatic head suggesting a degree of chronic pancreatitis. Spleen: Normal. No splenomegaly. Adrenals: Normal. No mass. Kidneys and ureters: Normal. No hydronephrosis. Stomach and bowel: Unremarkable. No obstruction. No mucosal thickening. Lymph nodes: Unremarkable. No enlarged lymph nodes. Intraperitoneal space: Unremarkable. No free air. No significant fluid collection. Bones/joints: Unremarkable. No acute fracture. No dislocation. Soft tissues: Unremarkable. IMPRESSION: Changes of acute pancreatitis. There may be a left upper quadrant pseudocyst forming. There appear to be changes of chronic pancreatitis and possible ductal obstruction. Follow-up recommended. Dictated and Authenticated by: Dulce Irby MD. Ordering:KIMBERLY Middleton MD
[2020-02-04] MEDS: MAGNESIUM SULFATE 2 GM/50 ML BAG IVPB (16:49)
[2020-02-04] MEDS: HYDROmorphone 2 MG/ML VIAL 1 MG IVP ×2 (16:54→20:03)
[2020-02-04 17:16] LABS: Source Nasopharynx
[2020-02-04] MEDS: MEROPENEM 1 GM in Normal Saline 100 ML IVPB (17:36)
--- NOTE | 2020-02-04 17:52 | NUR.NOTE ---
Nursing Note:at supervisor paint's request, will wait to admit pt until result of rapid PCR test to assist in appropriate pt care room assignment. Hospitalist has seen pt in ED.
[2020-02-04 17:56] LABS: COVID-19 PCR Negative (Negative); Influenza A PCR Negative (Negative); Influenza B PCR Negative (Negative); RSV PCR Negative (Negative)
[2020-02-04] MEDS: levoFLOXacin 750 MG/150 ML BAG 100 MG IVPB (18:11)
[2020-02-04] MEDS: Normal Saline 1,000 ML 80 ML IV (18:52)
[2020-02-04] MEDS: Apixaban 5 MG TAB PO (20:02)
[2020-02-04] MEDS: Normal Saline Flush 10 ML SYR IVP ×2 (20:04→21:35)
[2020-02-04] MEDS: Pantoprazole 40 MG VIAL IVP (21:34)
[2020-02-04] MEDS: HYDROmorphone 2 MG/ML VIAL IVP (21:34)
[2020-02-05] VITALS (7 sets, daily range): BP systolic 121–156; BP diastolic 71–90; PULSE 85–101; RESP 16–18; TEMP 36.3–37.5; O2SAT 90–96
[2020-02-05] MEDS: Normal Saline Flush 10 ML SYR IVP ×7 (02:54→22:29)
[2020-02-05] MEDS: HYDROmorphone 2 MG/ML VIAL IVP ×7 (02:54→22:28)
[2020-02-05] MEDS: Normal Saline 1,000 ML 150 ML IV ×4 (04:00→23:56)
[2020-02-05 07:19] LABS: Abs Immature Grans 0.04 10^3/uL (0.0-0.06); Absolute Basophil Count 0.03 10^3/uL (0.0-0.2); Absolute Eosinophil Count 0.12 10^3/uL (0.0-0.7); Absolute Lymphocyte Count 1.75 10^3/uL (1.2-3.4); Absolute Monocyte Count 0.58 10^3/uL (0.1-0.8); Absolute Neutrophil Count 6.01 10^3/uL (1.2-6.7); Basophils % 0.4; Eosinophils % 1.4; HGB 9.9 g/dL (13.5-17.5); Immature Grans % 0.5; Lymphocytes % 20.5; MCH 32.2 pg (27.0-33.0); MCHC 31.9 % (32.0-36.0); MPV 9.4 fL (8.0-11.0); Monocytes % 6.8; Neutrophils % 70.4; Nucleated RBC 0 %; Platelet Count 504 10^3/uL (130-400); RBC 3.07 10^6/uL (4.36-5.78); RDW 14.8 % (11.8-14.1); WBC 8.53 10^3/uL (4.4-10.8)
[2020-02-05 07:33] LABS: ALT 15 U/L (16-63); AST 13 U/L (15-37); Albumin 1.9 g/dL (3.4-5.0); Alkaline Phosphatase 116 U/L (46-116); Anion Gap 6.4 mmol/L (3-11); BUN 3 mg/dL (7-18); Bilirubin, Total 0.4 mg/dL (0.2-1.0); CO2 25.6 mmol/L (21.0-32.0); CREATININE 0.71 mg/dL (0.70-1.30); Calcium 7.7 mg/dL (8.5-10.1); Chloride 109 mmol/L (98-107); Glucose 89 mg/dL (74-106); Magnesium 1.9 mg/dL (1.8-2.4); Sodium 141 mmol/L (136-145); Total Protein 5.7 g/dL (6.4-8.2)
--- NOTE | 2020-02-05 07:33 | HPE_ITS ---
Date of service: 02/04/20 Time of Service: 17:26 Assessment and Plan Assessment and plan (1) Acute pancreatitis: Status: Acute Assessment and plan: CT abd showed moderate to severe peripancreatic soft tissue stranding. There is pancreatic ductal dilatation measuring up to 1 cm. There is some fluid attenuation at the level of the pancreatic tail and splenic hilum, poorly defined. It measures approximately 2.6 by 5.2 cm. There are dystrophic calcifications at the level of the pancreatic head suggesting a degree of chronic pancreatitis. NPO with IV fluids. IV dilaudid for pain control. (2) Pneumonia: Status: Acute Assessment and plan: Previous aspiration pneumonia and development of ARDS . CT chest showed no definite evidence for pulmonary embolus. Interstitial and ground-glass changes in the lungs are nonspecific. Viral process is a consideration. Clinical correlation with COVID-19 status recommended if not already performed. ED administered antibiotics but will hold off on further antibiotics at this time; what is described is possibly residual from previous pneumonia. Covid te sting was negative. WBC count is elevated but likely stress reaction to vomiting. CBC in AM (3) C. difficile diarrhea: Status: Acute Assessment and plan: On oral vancomycin He states his diarrhea has resolved. History of Present Illness History of Present Illness Chief Complaint: abdominal pain Narrative: Mr Colin is a 59 year old male with PMHx of alcohol abuse with recent admission to our facility for acute alcoholic pancreatitis and aspiration pneumonia, resulting in acute hypoxic respiratory failure due to ARDS, requiring intubation and transfer to [facility] on 01/16/2020, and whose admission was complicated by C.Diff colitis and a largue RUE DVT. He was extubated on 01/21/2020, off of supplemental oxygen on 01/25/2020. He is no longer on antibiotics for pneumonia, but is still on therapy with PO vancomycin, for which he is to complete a 10 day course of 02/02/2020. He had been on therapeutic lovenox for his RUE DVT, with PICC line pulled at [facility]. The patient was accepted in transfer for Swing bed level 1 admission for PT. However, upon arrival to [facility], he was not willing to stay and would like to leave A. He states that there is nothing we can do to convince him to stay and that his intent is to go home in [place] and smoke marijuana, which naturally, he was instructed not to do. 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 He was instructed to follow up with his PCP SHILA and to return to the hospital should he feel worse. On day of this admission he presented with c/o abd pain with nausea and vomiting. He stated to the ED physician that he had a cough with green sputum. He mentioned to me that his cough has improved since d/c from [facility]. He denies any alcohol intake since discharge from [facility]. Review of Systems All systems reviewed & are unremarkable except as noted in HPI and below PFSH Medical History HTN (hypertension) Hx of hyperlipidemia Myocardial infarction x 2 Pancreatitis Pancreatitis, chronic Presence of pancreatic duct stent (~01/2018) Steffanie Sears. Surgical History S/P ERCP (~01/2018) Sean Sears Social History Smoking/Tobacco Use Status: Current every day Tobacco Type: cigarettes Smoking packs per day: 1 Smoking cigarettes per day: 20.0 Smoking risk assessment performed?: Yes Alcohol Intake: former Drug use: Never Details: reports no drinking or drug use Do you feel safe at home: Yes Do you feel safe in your relationship?: Yes Meds Home Medications and Allergies Home Medications Medication Instructions Recorded Confirmed Type apixaban [Eliquis] 5 mg PO BID #60 tab 01/28/20 02/04/20 Rx folic acid 1 mg PO DAILY #30 tab 01/28/20 02/04/20 Rx guaifenesin [Mucinex] 600 mg PO BID PRN #20 tab 01/28/20 02/04/20 Rx ozwdbt-iqlcyadj-gutmygc [Creon] 1 cap PO AC & HS #120 cap 01/28/20 02/04/20 Rx multivitamin 1 tab PO DAILY #30 tab 01/28/20 02/04/20 Rx thiamine HCl (vitamin B1) 100 mg PO DAILY #30 tab 01/28/20 02/04/20 Rx vancomycin 250 mg PO QID 02/04/20 02/04/20 History Allergies Allergy/AdvReac Type Severity Reaction Status Date / Time Penicillins Allergy Unverified 02/04/20 14:55 Exam Const General: cooperative and no acute distress Nutritional Appearance: average body habitus and thin Orientation: alert and oriented x3 HENMT Head: normocephalic and atraumatic Eyes Sclera: sclerae normal Pupils: PERRL Resp Effort & Inspection: normal respiratory effort Auscultation: clear to auscultation bilaterally Cardio Rate: regular rate Rhythm: regular rhythm Heart Sounds: S1 normal and S2 normal GI Palpation: soft and tender (diffusely) Neuro General: patient alert and patient oriented x3 Cognition: normal cognition Speech: speech normal Psych Appearance: grossly normal Mental Status: mental status grossly normal Speech and Movement: speech and movement normal Results Labs Result diagrams: 02/05/20 06:40 02/04/20 15:00 Labs: Laboratory Results - last 24 hr 02/04/20 02/04/20 02/04/20 15:00 15:00 15:00 WBC 17.97 H RBC 3.77 L Hgb 12.0 L Hct 37.2 L MCV 98.7 H MCH 31.8 MCHC 32.3 RDW 14.6 H Plt Count 706 H D MPV 9.0 Immature Gran % 0.5 Neutrophils % 87.4 Lymphocytes % 8.1 Monocytes % 3.5 Eosinophils % 0.2 Basophils % 0.3 Nucleated RBC % 0 Absolute Neutrophils 15.71 H Absolute Lymphocytes 1.46 Absolute Monocytes 0.63 Absolute Eosinophils 0.04 Absolute Basophils 0.05 PT 10.8 INR 1.1 APTT 26.2 Sodium 137 Potassium 3.6 Chloride 102 Carbon Dioxide 26.8 Anion Gap 8.2 BUN 3 L Creatinine 0.80 Estimated GFR/1.73 m2 >= 60.00 Glucose 162 H Calcium 8.6 Magnesium 1.5 L Total Bilirubin 0.3 AST 18 ALT 21 Alkaline Phosphatase 156 H Troponin I < 0.05 Total Protein 7.7 Albumin 2.7 L Lipase 746 H COVID-19 Source SARS-CoV-2 (PCR) Influenza Type A (PCR) Influenza Type B (PCR) RSV (PCR) 02/04/20 02/05/20 17:00 06:40 WBC 8.53 D RBC 3.07 L Hgb 9.9 L D Hct 31.0 L MCV 101.0 H MCH 32.2 MCHC 31.9 L RDW 14.8 H Plt Count 504 H D MPV 9.4 Immature Gran % 0.5 Neutrophils % 70.4 Lymphocytes % 20.5 Monocytes % 6.8 Eosinophils % 1.4 Basophils % 0.4 Nucleated RBC % 0 Absolute Neutrophils 6.01 Absolute Lymphocytes 1.75 Absolute Monocytes 0.58 Absolute Eosinophils 0.12 Absolute Basophils 0.03 PT INR APTT Sodium Potassium Chloride Carbon Dioxide Anion Gap BUN Creatinine Estimated GFR/1.73 m2 Glucose Calcium Magnesium Total Bilirubin AST ALT Alkaline Phosphatase Troponin I Total Protein Albumin Lipase COVID-19 Source Nasopharynx SARS-CoV-2 (PCR) Negative Influenza Type A (PCR) Negative Influenza Type B (PCR) Negative RSV (PCR) Negative Last Vital Signs Temp 36.3 C L 02/05/20 07:11 Pulse 96 H 02/05/20 07:11 Resp 17 02/05/20 07:11 BP 126/77 02/05/20 07:11 Pulse Ox 94 02/05/20 07:11 COVID-19 Screening Have you, or household traveled for leisure in last 14 days?: No Had IN PERSON contact w/suspected or confirmed C-19 person: No
[2020-02-05] MEDS: Thiamine 100 MG TAB PO (07:46)
[2020-02-05] MEDS: Apixaban 5 MG TAB PO ×2 (07:46→20:44)
[2020-02-05 09:24] LABS: Procalcitonin 0.1 ng/mL
--- NOTE | 2020-02-05 11:34 | PHA.REVIEW ---
Pharmacy Admission Review - Admission Clinical Review (Last Reviewed 02/05/20 @ 08:00 by Jaspreet Duvall MD) Acute pancreatitis (Acute) Pneumonia (Acute) C. difficile diarrhea (Acute) Penicillins Allergy (Unverified 02/04/20 14:55) Height 5 ft 7 in Weight 64.1 kg - Renal Dosing Renal Dosing: BUN 3 mg/dL (7-18) L 02/05/20 06:40 Creatinine 0.71 mg/dL (0.70-1.30) 02/05/20 06:40 Medications needing adjustments: Reviewed (Crcl ~89 mL/min current meds okay) - Anticoagulation Anticoagulation: Hgb 9.9 g/dL (13.5-17.5) L D 02/05/20 06:40 Hct 31.0 % (40.0-50.0) L 02/05/20 06:40 Plt Count 504 10^3/uL (130-400) H D 02/05/20 06:40 INR 1.1 (0.9-1.1) 02/04/20 15:00 Creatinine 0.71 mg/dL (0.70-1.30) 02/05/20 06:40 DVT Prohphylaxis: N/A Therapeutic Anticoagulation: Reviewed Medications: Apixaban - Opiate Usage Evaluate Pain Scale/Pains Meds: Reviewed Scheduled Bowel Reg ordered if on Opiates?: No (will mention to provider) - Relevant Labs Sodium 141 mmol/L (136-145) 02/05/20 06:40 Potassium 4.0 mmol/L (3.5-5.1) 02/05/20 06:40 Chloride 109 mmol/L (98-107) H 02/05/20 06:40 Magnesium 1.9 mg/dL (1.8-2.4) 02/05/20 06:40 Electrolytes, C-Reactive P, ESR: Reviewed - DM Control DM Control: Glucose 89 mg/dL (74-106) D 02/05/20 06:40 Insulin Dosing: N/A (BG elevated on admission, within normal limits this morning) - Heart Failure/CO Heart Failure/CO: Troponin I < 0.05 ng/mL (<0.06) 02/04/20 15:00 EF%, EDWINA's, B-Blockers, Diuretics: Reviewed - BP Control BP Control: Blood Pressure 132/76 Blood Pressure 126/77 Blood Pressure 138/84 Blood Pressure 135/82 If elevated: N/A (elevated on admission, within normal limits so far today) - Qtc Review If Elevated: N/A (QTc 463 on admission) - IV to PO Switch IV Medications: Reviewed - Home Meds Home Med List reviewed: Intervened (pt has vanco on home med list from previous C. Diff infection, was to continue for 6 days after previous discharge (01/27). Course should be completed, mentioned to provider.) Relevent Home Meds Not ordered & why?: folic acid, guafenesin (PRN), creon, multivitamin - Current meds Current Medication Order Review: Reviewed - Comments Comments/Follow Ups: Watch VS, H/H, labs and for med changes (IV to PO, home meds once no longer NPO, need of BM meds). Antibiotic Activity - Pharmacy Antibiotic Review Pharmacy Antibiotic Activity: D/C antibiotic (PO vanco ordered, course should be completed based on previous discharge instructions. Provider made aware.)
--- NOTE | 2020-02-05 12:48 | W.PM.PROGNOT ---
Date of Service Date of service: 02/05/20 Time of Service: 11:41 Assessment and Plan Assessment and plan (1) Acute pancreatitis: Status: Acute Assessment and plan: acute on chronic. No alcohol for since prior admission when subsequently transferred to [facility]. Advance diet today as tolerated. Cont prn oral or IV dilaudid. Likely home tomorrow. Qualifiers: Acute pancreatitis complication: no infection or necrosis (2) C. difficile diarrhea: Status: Acute Assessment and plan: He completed a 10 day course of oral Vancomycin (3) COVID-19 ruled out by laboratory testing: Status: Ruled-out Subjective Subjective Patient reports: no new complaints, feels better and afebrile; denies diarrhea, nausea, vomiting and shortness of breath Exam Const General: cooperative, no acute distress and frail appearing Nutritional Appearance: average body habitus and thin Orientation: alert and oriented x3 Eyes Sclera: sclerae normal Pupils: PERRL Neck Neck: full ROM Resp Effort & Inspection: normal respiratory effort Auscultation: clear to auscultation bilaterally Cardio Rate: regular rate Rhythm: regular rhythm Heart Sounds: S1 normal and S2 normal GI Palpation: soft and tender (mild in LUQ w/o guarding/rebound) Extrem General: no pedal edema and no calf tenderness Psych Appearance: grossly normal Mental Status: mental status grossly normal Speech and Movement: speech and movement normal Objective Last Vital Signs Temp 37.2 C 02/05/20 11:05 Pulse 85 02/05/20 11:43 Resp 16 02/05/20 11:05 BP 132/76 02/05/20 11:05 Pulse Ox 90 L 02/05/20 11:05 Laboratory Results - last 24 hr 02/04/20 02/04/20 02/04/20 15:00 15:00 15:00 WBC 17.97 H RBC 3.77 L Hgb 12.0 L Hct 37.2 L MCV 98.7 H MCH 31.8 MCHC 32.3 RDW 14.6 H Plt Count 706 H D MPV 9.0 Immature Gran % 0.5 Neutrophils % 87.4 Lymphocytes % 8.1 Monocytes % 3.5 Eosinophils % 0.2 Basophils % 0.3 Nucleated RBC % 0 Absolute Neutrophils 15.71 H Absolute Lymphocytes 1.46 Absolute Monocytes 0.63 Absolute Eosinophils 0.04 Absolute Basophils 0.05 PT 10.8 INR 1.1 APTT 26.2 Sodium 137 Potassium 3.6 Chloride 102 Carbon Dioxide 26.8 Anion Gap 8.2 BUN 3 L Creatinine 0.80 Estimated GFR/1.73 m2 >= 60.00 Glucose 162 H Calcium 8.6 Magnesium 1.5 L Total Bilirubin 0.3 AST 18 ALT 21 Alkaline Phosphatase 156 H Troponin I < 0.05 Total Protein 7.7 Albumin 2.7 L Lipase 746 H Procalcitonin COVID-19 Source SARS-CoV-2 (PCR) Influenza Type A (PCR) Influenza Type B (PCR) RSV (PCR) 02/04/20 02/05/20 02/05/20 17:00 06:40 06:40 WBC 8.53 D RBC 3.07 L Hgb 9.9 L D Hct 31.0 L MCV 101.0 H MCH 32.2 MCHC 31.9 L RDW 14.8 H Plt Count 504 H D MPV 9.4 Immature Gran % 0.5 Neutrophils % 70.4 Lymphocytes % 20.5 Monocytes % 6.8 Eosinophils % 1.4 Basophils % 0.4 Nucleated RBC % 0 Absolute Neutrophils 6.01 Absolute Lymphocytes 1.75 Absolute Monocytes 0.58 Absolute Eosinophils 0.12 Absolute Basophils 0.03 PT INR APTT Sodium 141 Potassium 4.0 Chloride 109 H Carbon Dioxide 25.6 Anion Gap 6.4 BUN 3 L Creatinine 0.71 Estimated GFR/1.73 m2 >= 60.00 Glucose 89 D Calcium 7.7 L Magnesium 1.9 Total Bilirubin 0.4 AST 13 L ALT 15 L Alkaline Phosphatase 116 Troponin I Total Protein 5.7 L Albumin 1.9 L Lipase Procalcitonin COVID-19 Source Nasopharynx SARS-CoV-2 (PCR) Negative Influenza Type A (PCR) Negative Influenza Type B (PCR) Negative RSV (PCR) Negative 02/05/20 06:40 WBC RBC Hgb Hct MCV MCH MCHC RDW Plt Count MPV Immature Gran % Neutrophils % Lymphocytes % Monocytes % Eosinophils % Basophils % Nucleated RBC % Absolute Neutrophils Absolute Lymphocytes Absolute Monocytes Absolute Eosinophils Absolute Basophils PT INR APTT Sodium Potassium Chloride Carbon Dioxide Anion Gap BUN Creatinine Estimated GFR/1.73 m2 Glucose Calcium Magnesium Total Bilirubin AST ALT Alkaline Phosphatase Troponin I Total Protein Albumin Lipase Procalcitonin 0.1 COVID-19 Source SARS-CoV-2 (PCR) Influenza Type A (PCR) Influenza Type B (PCR) RSV (PCR)
--- NOTE | 2020-02-05 13:41 | PDOC.CMIN ---
- If Service Date Differs Date of service: 02/05/20 Time of Service: 13:42 Care Management Initial Assess REASON FOR HOSPITALIZATION:: Acute Pancreatitis PAST MEDICAL HISTORY/PAST SURGICAL HISTORY:: HTN, Hyperlipidemia, [place] x 2, Pancreatic cancer with stent, Substance use disorder PREVIOUS FUNCTIONAL STATUS/SOCIAL/FAMILY SUPPORTS:: Juan Jose lives alone in [place]. He has self reported that he is an alcoholic, and he is estranged from his family. He does have a reading coach, Katt, whom he relies on for his recovery support. He does have an ex spouse and a son that he has not seen since he was [age] years old. He states that he has a girlfriend, Mira, who lives across the street from him. He uses [employer] for transportation. CURRENT FUNCTIONAL STATUS:: Juan Jose was sitting up in bed when CM met with him. He reported that he is feeling 100% better today. CM discussed his recent hospitalizations with him, including the times he has left AMA. He stated that he does not plan on leaving AMA again, stating that he is going to listen this time. CM also reported that he has belongings that have remained here since his last admission, which he asked to be brought to his room. CM will continue to follow. ADVANCE DIRECTIVES:: None on file. CM will offer forms. Has patient been provided with info about the portal/API?: Yes Did the patient sign up for the portal?: No CODE STATUS:: Full Code INSURANCE COVERAGE / FINANCIAL ISSUES:: TEE CURRENT HOME/COMMUNITY SERVICES/EQUIPMENT:: Critical Care Specialist, [facility] referral sent on previous admission PRIMARY CARE PHYSICIAN:: None on file CM referred pateint to [facility] last admission. POTENTIAL DISCHARGE NEEDS:: Community referral follow ups, including PCP, reading coach and [facility] rn case mgr. PATIENT/FAMILY EDUCATION NEEDS:: Review discharge instructions regarding activity levels and medications, discussion of self care needs including ask me three and goals of care. ANTICIPATED BARRIERS TO DISCHARGE:: Barriers to discharge include his ability to accept resources and care for himself at home. TRANSPORTATION:: Via [employer] private vehicle. PLAN:: Juan Jose is being closely monitored for acute pancreatitis currently. Anticipate he will return home when medically cleared with a resumption of community services, including reading coach and [facility]. He will transport via [facility] private vehicle. He will follow up with his PCP and discharge plan of care. CM will continue to follow. Readmission - Within the Past 30 Days Yes or No: Y - Date of First Admission Date of 1st Admission: 01/28/20 - Date of this Admission Date of Admission: 02/04/20 This admission was: Through ED - Office Visit Since 1st Admission Have you seen your PCP in the office since discharge?: No Had an appointment Been Scheduled?: No Describe barriers for scheduling or getting an appointment: Juan Jose was recently connected with a new PCP in the area, and he has yet to establish care. - Speicalist Appointments Have you seen any other specialist since your 1st Admission?: No - I. Interview patient and/or Family Difficulty reaching your doctor or getting an office appt?: Yes Did you feel ready for discharge when you left the last time: No (left AMA, sick of being here) Why did you not feel ready for discharge?: Juan Jose stated that he did not feel ready to leave, but he was sick of being in the hospital. What were the barriers for not receiving services?: access to working phone Reason there were no orders at discharge: Juan Jose was referred to [facility], and his shelter reading coach. - If the patient had a VNA ordered Did the patient have a VNA order?: No - ED visits How many ED visits in the past 12 months: 12 - Assessment for Readmission Summary of readmission circumstances, based upon interviews: Juan Jose did not feel that he was ready for discharge when he left AMA previously, although he stated that he was sick of being in the hospital. He reported that he plans to listen to the doctor this time, and stated that he will not leave AMA again. CM reached out to his reading coach, and Juan Jose stated that he will talk with her as she is very supportive of him. He remains at [facility] with acute pancreatitis at this time. CM will continue to follow.
--- NOTE | 2020-02-05 15:39 | CHAPLAIN ---
Juan Jose was sitting up in bed when I visited. He said he is feeling much better and talked about how much pain he was in yesterday. He lives in [place] and his girlfriend lives nearby, he said. I explained my role and offered support.
[2020-02-05] MEDS: Ondansetron 4 MG/2 ML VIAL IVP (20:39)
[2020-02-05] MEDS: Pantoprazole 40 MG VIAL IVP (22:01)
[2020-02-06] MEDS: Normal Saline Flush 10 ML SYR IVP ×4 (00:30→20:23)
[2020-02-06] MEDS: HYDROmorphone 2 MG/ML VIAL IVP ×3 (00:30→05:51)
[2020-02-06] MEDS: Normal Saline 1,000 ML 150 ML IV ×3 (05:50→20:25)
[2020-02-06] MEDS: Lidocaine 2% Jelly 11 ML SYR UR (06:37)
[2020-02-06 08:05] VITALS: BP 132/82; PULSE 107; RESP 20; TEMP 36.7; O2SAT 96
[2020-02-06] MEDS: Apixaban 5 MG TAB PO ×2 (08:23→20:25)
[2020-02-06] MEDS: Thiamine 100 MG TAB PO (08:23)
[2020-02-06] MEDS: HYDROmorphone 4 MG TAB PO ×3 (08:28→22:45)
[2020-02-06 09:05] LABS: HCT 31.3 % (40.0-50.0)
--- NOTE | 2020-02-06 10:35 | NS.NUTBLAN_ITS ---
Date of service: 02/06/20 Time of Service: 10:35 Nutritional Consult ASSESSMENT: 59 year old male readmitted after discharge on 01/27 with recurrent acute pancreatitis with PNA, C diff with recent intubation (01/16/20) for ARDs. Medical chart indicates 11 lbs weight loss in last month (-7.6% weight loss) with history of poor intake indicating moderate protein calorie malnutrition. Met with Juan Jose today. He states that prior to this admission has been sober, but ate a couple pieces of pizza that caused severe abdominal pain, and readmission. Suspect high fat intake contributed to acute pancreatitis relapse. Lipase 746 on 02/04/20. Following clear liquid diet with no complai nts, ready for solid foods. will supplement diet with ensure clear TID. When diet advanced, recommend low fat diet. NUTRITIONAL DIAGNOSIS: Moderate protein calorie malnutrition as evidenced by > 5% weight loss in last month due to poor po intake secondary to pancreatitis and digestive symtoms INTERVENTION: Educated Juan Jose on principles of low fat diet and importance to follow to help pancreas heal. Encouraged continued sobriety .Provided meal plans and contact information if has questions s/p discharge. Offered referral to community connections to help with access to healthy food- declines referral. States he has welfare and food stamps and able to cook at home. Encouraged Juan Jose to avoid all restaurant and fast food meals until pancreas healed and rely on low fat home made meals. MONITORING AND EVALUATION: weight, po intake, labs Time Spent in Nutritional Counseling and Treatment: 20 min
[2020-02-06] MEDS: Tamsulosin 0.4 MG CAPCR 0.8 MG PO (12:29)
[2020-02-06] MEDS: Ketorolac 30 MG/ML VIAL IVP ×2 (12:29→20:24)
--- NOTE | 2020-02-06 13:48 | PGE_ITS ---
Date of Service Date of service: 02/06/20 Time of Service: 13:53 Assessment and Plan Assessment and plan (1) Acute pancreatitis: Status: Acute Assessment and plan: acute on chronic. No Etoh intake endorsed by patient since last admission at [facility] on 01/15/2020. tolerating clear liquids but has little appetite. Advance diet as tolerated. Restart pancreatic enzyme replacement. Oral dilaudid prn Add prn IV Toradol. Qualifiers: Acute pancreatitis complication: no infection or necrosis (2) Alcoholism /alcohol abuse: Status: Acute Assessment and plan: History of abuse. Now sober for several weeks. (3) Deep vein thrombosis (DVT) of right upper extremity: Status: Acute Assessment and plan: Cont Elquis. Subjective Subjective Patient reports: no new complaints, tolerating liquids well (appetite is depressed) and afebrile; denies diarrhea, nausea and vomiting Exam Const General: cooperative and no acute distress Nutritional Appearance: average body habitus and thin Eyes Sclera: sclerae normal Pupils: PERRL Resp Effort & Inspection: normal respiratory effort Auscultation: clear to auscultation bilaterally Cardio Rate: regular rate Rhythm: regular rhythm Heart Sounds: S1 normal and S2 normal GI Inspection: normal to inspection Palpation: soft and tender in the LUQ (mild) Extrem General: normal to inspection, no pedal edema and no calf tenderness Objective Last Vital Signs Temp 36.7 C 02/06/20 08:05 Pulse 107 H 02/06/20 08:05 Resp 20 02/06/20 08:05 BP 132/82 02/06/20 08:05 Pulse Ox 96 02/06/20 08:05 Laboratory Results - last 24 hr 02/06/20 08:55 Hgb 10.0 L Hct 31.3 L
[2020-02-06 16:10] VITALS: BP 161/92; PULSE 98; RESP 18; TEMP 36.8; O2SAT 96
--- NOTE | 2020-02-06 16:44 | CMPROGNOTE_ITS ---
- If Service Date Differs Date of service: 02/06/20 Time of Service: 16:44 Care Management Progress Note S/O: Juan Jose was sitting up in bed when CM met with him today. He stated that he is feeling much better today, with less pain. He stated that he has been able to tolerate clear liquids, and that per provider he may be ready for discharge tomorrow. He stated that he is comfortable remaining at [facility] for monitoring, and is happy with the care he is receiving. He stated that he did not connect with his assistant track coach yesterday, despite attempts by his assistant track coach. CM wrote her phone number on the board in the room for him to reach out when he is available. CM called and was unable to leave a message with his assistant track coach. CM will continue to follow. A: Juan Jose is a 59 year old male admitted to [facility] on 02/04/20 with acute pancreatitis. P: Anticipate Juan Jose will return home when medically cleared. He will follow up with his assistant track coach, PCP, and discharge plan of care. He was referred to [facility] at a previous admission for PCP establishment. He was also referred to [facility]. He will transport via private vehicle [facility] upon discharge. CM will continue to follow.
--- NOTE | 2020-02-06 16:44 | PDOC.CMPRO ---
- If Service Date Differs Date of service: 02/06/20 Time of Service: 16:44 Care Management Progress Note S/O: Juan Jose was sitting up in bed when CM met with him today. He stated that he is feeling much better today, with less pain. He stated that he has been able to tolerate clear liquids, and that per provider he may be ready for discharge tomorrow. He stated that he is comfortable remaining at [facility] for monitoring, and is happy with the care he is receiving. He stated that he did not connect with his manager recovery yesterday, despite attempts by his defensive line coach. CM wrote her phone number on the board in the room for him to reach out when he is available. CM called and was unable to leave a message with his manager recovery. CM will continue to follow. A: Juan Jose is a 59 year old male admitted to [facility] on 02/04/20 with acute pancreatitis. P: Anticipate Juan Jose will return home when medically cleared. He will follow up with his manager recovery, PCP, and discharge plan of care. He was referred to [facility] at a previous admission for PCP establishment. He was also referred to [facility]. He will transport via private vehicle RCT upon discharge. CM will continue to follow.
[2020-02-06] MEDS: Acetaminophen 325 MG TAB 650 MG PO (20:25)
[2020-02-06 23:44] VITALS: BP 149/83; PULSE 88; RESP 17; TEMP 36.4; O2SAT 95
[2020-02-07] MEDS: Normal Saline 1,000 ML 150 ML IV (02:50)
[2020-02-07 07:21] VITALS: BP 172/77; PULSE 88; RESP 18; TEMP 37.4; O2SAT 98
--- NOTE | 2020-02-07 07:54 | W.PM.DS.N ---
Date of service: 02/07/20 Time of Service: 07:55 DS: Diagnosis Discharge Diagnosis (1) Acute pancreatitis: Status: Acute (2) Alcoholism /alcohol abuse: Status: Acute (3) Deep vein thrombosis (DVT) of right upper extremity: Status: Acute Discharge Plan Disposition Patient Disposition: HOME Condition: Good Discharge Details Reason For Visit: ACUTE PANCREATITIS Admit Date/Time: 02/04/20 16:37 Admit Provider: Jaspreet Duvall Attending Provider: Jaspreet Duvall Primary Care Provider: None,None Hospital Course Hospital Course: Mr Colin is a 59 year old male with PMHx of alcohol abuse with recent admission to our facility for acute alcoholic pancreatitis and aspiration pneumonia, resulting in acute hypoxic respiratory failure due to ARDS, requiring intubation and transfer to [facility] on 01/16/2020, and whose admission was complicated by C.Diff colitis and a largue RUE DVT. He was extubated on 01/21/2020, off of supplemental oxygen on 01/25/2020. He is no longer on antibiotics for pneumonia, but is still on therapy with PO vancomycin, for which he is to complete a 10 day course of 02/02/2020. He had been on therapeutic lovenox for his RUE DVT, with PICC line pulled at [facility]. The patient was accepted in transfer for Swing bed level 1 admission for PT. However, upon arrival to [facility], he was not willing to stay and would like to leave A. He states that there is nothing we can do to convince him to stay and that his intent is to go home in [place] and smoke marijuana, which naturally, he was instructed not to do. He did agree to flower buncher or picker his medications. He was instructed to follow up with his PCP SHILA and to return to the hospital should he feel worse. On day of this admission he presented with c/o abd pain with nausea and vomiting. He stated to the ED physician that he had a cough with green sputum. He mentioned to me that his cough has improved since d/c from [facility]. He denies any alcohol intake since discharge from [facility]. Initially his pain was treated with IV Dilaudid. He was later transitioned to po Dilaudid and prn IV Ketorolac. His diet was advanced. He did require straight catheterization for urinary retention of up to 800+ mls of urine. Flomax 0.8mg daily initiated. He was subsequently voiding urine w/o difficulty. He will continue Flomax daily and discuss further use with his PCP. Encouragement given to continue to avoid alcohol. Follow up with PCP in 1-2 weeks. Home Meds and New Rx's Prescriptions: New tamsulosin 0.4 mg Capsule 0.8 mg PO DAILY Qty: 30 RF: 0 Continued Eliquis 5 mg tablet 5 mg PO BID Qty: 60 RF: 0 folic acid 1 mg tablet 1 mg PO DAILY Qty: 30 RF: 0 guaifenesin [Mucinex] 600 mg tablet extended release 12hr 600 mg PO BID PRN (Reason: cough) Qty: 20 RF: 0 Creon 12,000-38,000 -60,000 unit capsule,delayed release(DR/EC) 1 cap PO AC & HS Qty: 120 RF: 0 multivitamin Tablet 1 tab PO DAILY Qty: 30 RF: 0 thiamine HCl (vitamin B1) 100 mg tablet 100 mg PO DAILY Qty: 30 RF: 0 vancomycin 250 mg Capsule 250 mg PO QID RF: 0 Discharge Instructions Instructions: Pancreatitis (GEN) Activity:: Activity as Tolerated Equipment/Supplies:: No Equipment Needed Diet:: Normal Diet Discharge Orders Discharge Orders: Discharge Order (Routine); Ordered 02/07/20 Ordered By: Jaspreet Duvall DS: Summary Status at Discharge Functional status at discharge: independent ambulation Overall status at discharge: patient is back to baseline Mental Status: mental status grossly normal Speech and Movement: speech and movement normal Mood: congruent mood Affect: normal affect Exam Psych Mental Status: mental status grossly normal Speech and Movement: speech and movement normal Mood: congruent mood Affect: normal affect DS: Data Vitals/I&O Vitals and I&O: Vital Signs Temperature 37.4 C 02/07/20 07:21 Temperature Source Temporal Artery Scan 02/07/20 07:21 Pulse 88 02/07/20 07:21 Pulse Rhythm Regular 02/07/20 04:56 Pulse 98 H 02/04/20 15:50 Respiratory Rate 18 02/07/20 07:21 Respiratory Effort Non-Labored 02/07/20 04:56 Respiratory Depth Normal 02/07/20 04:56 Respiratory Pattern Normal 02/07/20 04:56 Blood Pressure 172/77 H 02/07/20 07:21 Blood Pressure Mean 86 02/04/20 16:16 Blood Pressure Position Supine 12/13/20 14:47 Pulse Oximetry 98 02/07/20 07:21 Oxygen Delivery Method Room Air 02/07/20 07:21 Oxygen Flow Rate 0 02/07/20 07:21 Pain Level 0 02/07/20 07:21 Comment 02/06/20 16:10 Intake & Output 02/06/20 02/06/20 02/07/20 11:59 23:59 11:59 Intake Total 1285 / 4215 2930 / 4215 962.5 / 962.5 Output Total 1725 / 2675 950 / 2675 900 / 900 Balance -440 / 1540 1980 / 1540 62.5 / 62.5 Weight 65.1 kg 64.6 kg Intake: IV 885 / 2895 2010 / 2895 962.5 / 962.5 Oral 400 / 1320 920 / 1320 Output: Urine 1725 / 2675 950 / 2675 900 / 900 Other: Urine Color Yellow Light Trisha Yellow Urine Appearance Clear Clear Clear Urine Odor Normal Normal Comment cathed for 600 ml's RN notified Voided 350 immediately after bladder scan. Voiding Methods Urinal Urinal Data Completed and Pending Labs on day of discharge: Labs from last 24 hours 02/06/20 08:55 Hgb 10.0 L Hct 31.3 L Preliminary micro results at discharge 02/04/20 17:25 Blood Culture - Preliminary Blood NO GROWTH 48 HOURS 02/04/20 17:25 Blood Culture - Preliminary Blood NO GROWTH 48 HOURS PFSH Medical History HTN (hypertension) Hx of hyperlipidemia Myocardial infarction x 2 Pancreatitis Pancreatitis, chronic Presence of pancreatic duct stent (~01/2018) Orion NHolly. Surgical History S/P ERCP (~01/2018) Sean Sears Social History Smoking/Tobacco Use Status: Current every day Tobacco Type: cigarettes Smoking packs per day: 1 Smoking cigarettes per day: 20.0 Smoking risk assessment performed?: Yes Alcohol Intake: former Drug use: Never Details: reports no drinking or drug use Do you feel safe at home: Yes Do you feel safe in your relationship?: Yes
--- NOTE | 2020-02-07 11:55 | CMDISCH_ITS ---
- If Service Date Differs Date of service: 02/07/20 Time of Service: 11:55 LACE Index Scoring Tool - Questions: Length of Stay (in days): 4 - 6 Acuity (Admit via E.D.?): Yes E.D. Visits: 12 - Answers: Total Score: 11 Risk of Readmission: High Risk Care Management Discharge Reason for Hospitalization: Acute Pancreatitis Discharge Plan: Juan Jose will return home with no additional services today. 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 He will be driven home by friends. He will follow up with his PCP and discharge plan of care. Patient/Family Education Needs: Review discharge instructions regarding activity levels and medications, discussion of self care needs including ask me three and goals of care.
== END 2020-02-07 08:05 | disposition home or self-care (01) | DRG 438 ==
LOC: ER 16:36 → MS 18:28
PROVIDERS: Admitting Provider Family Medicine; Emergency Provider Physician Assistant; Visit Provider Family Medicine
DX: K85.90 Acute pancreatitis without necrosis or infection, unspecified; J18.9 Pneumonia, unspecified organism; I82.621 Acute embolism and thrombosis of deep veins of right upper extremity; K86.1 Other chronic pancreatitis; E78.5 Hyperlipidemia, unspecified; I10 Essential (primary) hypertension; I25.2 Old myocardial infarction; R33.0 Drug induced retention of urine; F10.20 Alcohol dependence, uncomplicated; T40.605A Adverse effect of unspecified narcotics, initial encounter
CPT/HCPCS: 36415; 71275; 74177; 80053; 83690; 84145; 87040; 93005; 96361; 96365; 96368; 96375; 99222; 99232; 99239; 99285; 83735; 84484; 85014; 85018; 85025; 85610; 85730; 93010; J0131; J1885; J1956; J2405

== ENCOUNTER 2020-03-02 22:01 | Inpatient (IN) | payer MEDICAID, SELFPAY ==
[2020-03-02 22:01] VITALS: BP 146/91; PULSE 111; RESP 28; TEMP 37.2; O2SAT 100
--- NOTE | 2020-03-02 22:15 | DI.CT_ITS ---
EXAM: CT CHEST/ABD/PEL W CLINICAL HISTORY: abd pain, hx of Pancreatitis, Shortness of breath. TECHNIQUE: Imaging Protocol: Axial computed tomography images with coronal and sagittal reformatted images were created and reviewed CONTRAST MATERIAL: Intravenous: Omnipaque 350 Contrast volume:100 ml Oral: no COMPARISON: CT CT CHEST PE ABD PELVIS W from 02/04/2020 FINDINGS: CHEST: Thyroid: Normal Tracheobronchial tree: Patent where visualized. Mediastinum and Caroline: No dominant adenopathy or fluid collection. Pulmonary parenchyma: No consolidation or dominant measurable mass. Lingular and posterior basilar a telectasis. Bilateral mild ground-glass infiltrates. Pleura: No effusion or pneumothorax. Lymph nodes: Small calcified lymph nodes consistent with granulomatous disease. Aorta: . Atherosclerotic changes. Heart: Coronary artery calcifications Bones: Degenerative changes. No compression fractures. Small hiatal hernia. ABDOMEN: Liver: Normal density. No measurable mass. Gallbladder and biliary tract: No radiodense calculus or dilation. Pancreas: The pancreas is again noted to be atrophic and shows scattered calcifications. There is wo rsening of the mount of the inflammation surrounding the head as well as tail of the pancreas. There is increased inflammation seen adjacent to the stomach and spleen. There are multiple small loculat ed collections. There is inflammation of the duodenum secondary to the pancreatitis. There is stabl e dilatation of the pancreatic duct. Spleen: Normal. Kidneys: Normal size, contour and axis. No radiodense stones or obstructive uropathy. No masses seen. Adrenal glands: No masses seen. Aorta: Abdominal portion non-dilated. Lymph nodes: Within normal limits. PELVIS: Bladder: Abnormally distended. No visible stone or mass., No gross wall thickening. Bowel: Dilatation of proximal jejunum, consistent with reactive ileus. Colonic diverticula. No evid ence of diverticulitis.. Peritoneal cavity: No ascites, collection or mesenteric inflammatory response. Bones: Degenerative changes in the spine. Reproductive organs: Within normal limits. IMPRESSION: Chest: Mild bilateral ground-glass infiltrates. Abdomen and pelvis: Interval worsening of pancreatic inflammation, particularly around the tail adjac ent to the stomach with there are multiple loculated collections. Secondary duodenal inflammation. RADIATION DOSE DELIVERED: 823.62mGy.cm Total DLP DATA REPOSITORY: All CT scans at this facility are submitted to the National Radiology Data Registry (NRDR) Dose Index Registry (DIR) with the [employer] (ACR). RADIATION OPTIMIZATION: All CT scans at this facility use at least one of these dose optimization te chniques: automated exposure control; mA and/or kV adjustment per patient size (includes targeted exa ms where dose is matched to clinical indication); or iterative reconstruction.
--- NOTE | 2020-03-02 22:15 | RT.EKG_ITS ---
APPROVED REPORT Exam: Resting ECG Patient Location: E HR:113 bpm ECG Measurements Heart Rate 113 AXIS MS 144 P 67 QRSd 77 QRS 16 QT 346 T 28 QTc 474 Conclusion Sinus tachycardia...rate> 99 Low voltage, extremity and precordial leads...extremity<0.5mV, precordial<1.0mV There are no significant changes compared to prior EKG performed on 02/04/2020 at 14:54.
--- NOTE | 2020-03-02 22:20 | ED.GENADUL_ITS ---
Discharge Plan Disposition Patient Disposition: [facility] INPATIENT Condition: Stable Discharge Details Clinical Impression: Acute on chronic pancreatitis Admit Date/Time: 03/03/20 00:37 Admit Provider: Jaspreet Duvall Attending Provider: Jaspreet Duvall Primary Care Provider: Gregoria Perez ED Provider: Jennifer Bowen Discharge Data Discharge Date/Time-TO BE ENTERED AT DEPARTURE: 03/03/20 01:30 Medical Decision Making 59-year-old male presents to the ED via EMS with a complaint of abdominal pain. He does have a history of chronic pancreatitis, pneumonia, C. difficile diarrhea, alcohol abuse and is well-known to the department. He was recently admitted to the hospital approximately 3 weeks ago for acute pancreatitis and pneumonia he subsequently left AMA. Upon initial exam he reports abdominal pain got worse last night. He did have a beer this morning, he does also endorse some shortness of breath denies any cough, denies any diarrhea. He reports some constipation. Also associated symptoms include nausea and vomiting. He denies any hematic emesis or hematochezia. She reports not taking anything for pain at home at this time. He is not currently on any antibiotics. 2008: Patient still complaining of 9 out of 10 pain after receiving 4 mg morphine IV. Lactate is elevated at 2.3 normal saline open wide open, no leukocytosis. Rest of CBC is largely at baseline. CT CHEST/ABD/PEL WO 01/15/2020 9:30 PM FINDINGS: Lungs: Hyperinflation. Interval, near complete resolution of previously demonstrated extensive bilateral interstitial infiltrates or alternatively development of scattered, new, small interstitial groundglass infiltrates bilaterally. Dependent subsegmental atelectasis. 7 mm pleural based nodule or focal area of pleural thickening posteromedially in right upper lobe unchanged. Pleural space: No pleural effusion or pneumothorax. Heart: There are coronary artery calcifications. Mediastinal space: Small hiatal hernia. Pulmonary arteries: No pulmonary artery filling defects. Aorta: Ascending aorta minimally dilated to 3.5 cm. Lymph nodes: There are calcified mediastinal nodes consistent with remote granulomatous disease. Bones/joints: The spine demonstrates mild degenerative changes at multiple levels. No acute fracture. Soft tissues: Unremarkable. IMPRESSION: 1. New, scattered, small ground-glass infiltrates cannot be excluded in each lung. 2. Coronary artery disease. 3. Minimally dilated ascending aorta. 4. Small hiatal hernia. Exam: CT Abdomen And Pelvis With Contrast Exam date and time: 03/02/2020 11:33 PM Age: 59 years old Clinical indication: Abdominal tenderness; Patient HX: Abd pain, HX of pancreatitis, shortness of breath FINDINGS: Liver: Normal. No mass. Gallbladder and bile ducts: Normal. No calcified stones. No ductal dilation. Pancreas: Pancreas is smaller on comparison to prior study. Scattered parenchymal calcifications. Ductal dilatation to 10 mm. Peripancreatic fat stranding and fluid collection. Spleen: Normal. No splenomegaly. Adrenal glands: Normal. No mass. Kidneys and ureters: Normal. No hydronephrosis. Stomach and bowel: Distal duodenum and jejunum minimally dilated with prominent hyperenhancing mucosa and stranding of surrounding fat. Proximal ileum minimally dilated. Small bowel more distally normal in caliber. No colonic dilatation. Colonic diverticula. Appendix: Normal appendix. Intraperitoneal space: No free intraperitoneal gas. No pelvic ascites. Vasculature: Unremarkable. No abdominal aortic aneurysm. Lymph nodes: Unremarkable. No enlarged lymph nodes. Urinary bladder: Urinary bladder minimally distended without wall thickening. Reproductive: Unremarkable as visualized. Bones/joints: The spine demonstrates mild degenerative changes at multiple levels. No acute fracture. Soft tissues: Left inguinal canal distended with fat. IMPRESSION: 1. Acute on chronic pancreatitis. 2. Proximal enteritis may be reactive to process in pancreas. 3. Proximal small bowel ileus. 4. Colonic diverticula. 5. Distended urinary bladder. 0015: Hospitalist paged for possible admission. 0021: Spoke with Nolker who agrees to admission for Acute on Chronic pancreatitis and pain control. At the time of this dictation patient was aware of the plan, he was hemodynamically stable, I did order another 4 mg of morphine prior to his transfer to the floor. HPI General Mode of arrival: EMS . Date/Time Provider Initiated Documentation: 03/02/20 22:10 . Limitations to Documentation: no limitations . Information obtained by: patient . HPI Narrative: 59-year-old male presents to the ED via EMS with a complaint of abdominal pain. He does have a history of chronic pancreatitis, pneumonia, C. difficile diarrhea, alcohol abuse and is well-known to the department. He was recently admitted to the hospital approximately 3 weeks ago for acute pancreatitis and pneumonia he subsequently left AMA. Upon initial exam he reports abdominal pain got worse last night. He did have a beer this morning, he does also endorse some shortness of breath denies any cough, denies any diarrhea. He reports some constipation. Also associated symptoms include nausea and vomiting. He denies any hematic emesis or hematochezia. She reports not taking anything for pain at home at this time. He is not currently on any antibiotics. Related Data Home Medications Medication Instructions Recorded Confirmed Creon 1 cap PO AC & HS #120 cap 01/28/20 03/02/20 Eliquis 5 mg PO BID #60 tab 01/28/20 03/02/20 folic acid 1 mg PO DAILY #30 tab 01/28/20 03/02/20 guaifenesin [Mucinex] 600 mg PO BID PRN #20 tab 01/28/20 03/02/20 multivitamin 1 tab PO DAILY #30 tab 01/28/20 03/02/20 thiamine HCl (vitamin B1) 100 mg PO DAILY #30 tab 01/28/20 03/02/20 tamsulosin 0.8 mg PO DAILY #30 cap 02/07/20 03/02/20 Previous Rx's Medication Instructions Recorded Creon 1 cap PO AC & HS #120 cap 01/28/20 Eliquis 5 mg PO BID #60 tab 01/28/20 folic acid 1 mg PO DAILY #30 tab 01/28/20 guaifenesin [Mucinex] 600 mg PO BID PRN #20 tab 01/28/20 multivitamin 1 tab PO DAILY #30 tab 01/28/20 thiamine HCl (vitamin B1) 100 mg PO DAILY #30 tab 01/28/20 tamsulosin 0.8 mg PO DAILY #30 cap 02/07/20 Allergies Allergy/AdvReac Type Severity Reaction Status Date / Time Penicillins Allergy Unverified 02/04/20 14:55 General Stated Complaint: Abd Prob DMITRI: 3 Review of Systems Narrative: Constitutional: Negative for weight loss, alert and oriented, normal body habitus, appears comfortable. HEENT: Denies trauma, headaches, blurry vision, nasal discharge, sore throat, trouble swallowing. Chest: Denies chest pain, palpitations, irregular rhythm, hypertension. Respiratory: Denies cough, hemoptysis. Positive shortness of breath. GI: Denies diarrhea, positive abdominal pain, nausea vomiting constipation. : Denies dysuria, hematuria, flank pain, rectal bleeding. Neuro: Denies dizziness, blurry vision, weakness, syncope, headache or facial numbness. Hematologic: Denies easy bruising, intolerance to heat or cold, hair loss. [facility] Medical History (Updated 03/03/20 @ 12:10 by Elias Espino) Alcohol withdrawal ARDS (adult respiratory distress syndrome) Aspiration pneumonia HTN (hypertension) Hx of hyperlipidemia Myocardial infarction x 2 Pancreatitis Pancreatitis, chronic Presence of pancreatic duct stent (~01/2018) Steffanie Sears. Surgical History S/P ERCP (~01/2018) Sean Sears Family History Mother Alcohol abuse Father Alcohol abuse Social History Smoking/Tobacco Use Status: Current every day Tobacco Type: cigarettes Smoking packs per day: 1 Smoking cigarettes per day: 20.0 Smoking risk assessment performed?: Yes Alcohol Intake: current Alcohol Intake frequency: 3 or more drinks per day Alc ohol type: beer Drug use: Never Details: no IV drug use Housing: apartment Do you feel safe at home: Yes Do you feel safe in your relationship?: Yes Exam Narrative Exam Narrative: Constitutional: Alert and oriented x3. Appears stated age. Normal body habitus. Head: Normocephalic, no trauma. Eyes: Pupils PERRLA, Red reflex noted, EOM's intact. Eyelids symmetrical without lesions, discharge, or swelling. ENT: Bilateral TM's WNL, External ear normal to inspection, no mastoid TTP, swelling, or erythema, Nasal turbinates WNL, no nasal discharge. Normal dentition, Posterior pharynx WNL, no exudate. Chest: Mildly tachycardic at a rate of 111, normal S1, S2, no rubs murmurs or gallop, distal pulses intact. Resp: Lungs clear to auscultation bilaterally, no wheezes, rales, or rhonchi. Abdomen: Soft, nondistended tender to palpation left upper quadrant and left lower quadrant. Musculoskeletal: Normal gait, 5/5 strength to all four extremities. Skin: No suspicious rashes or lesions. Capillary refill less than 2 sec. Neurologic: Cranial nerves II-XII intact. Alert and oriented x 3. DTR's intact. Hematologic/Lymphatic: No ecchymosis, no lymphadenopathy. Course Vital Signs Vital signs: Vital Signs Temperature 37.2 C 03/02/20 22:01 Pulse 111 H 03/02/20 22:01 Respiratory Rate 28 H 03/02/20 22:01 Blood Pressure 146/91 H 03/02/20 22:01 Pulse Oximetry 100 03/02/20 22:01 Temperature 37.2 C 03/02/20 22:01 Pulse 111 H 03/02/20 22:01 Respiratory Rate 28 H 03/02/20 22:01 Respiratory Effort 03/02/20 22:07 Blood Pressure 146/91 H 03/02/20 22:01 Blood Pressure Position Supine 03/02/20 22:01 Pulse Oximetry 100 03/02/20 22:01 Oxygen Delivery Method Room Air 03/02/20 22:01 Oxygen Flow Rate 0 03/02/20 22:01 Pain Level 10 03/02/20 22:01
[2020-03-02] MEDS: MORPHine 10 MG/ML VIAL 4 MG IVP (22:22)
[2020-03-02] MEDS: Normal Saline 1,000 ML 125 ML IV (22:22)
[2020-03-02] MEDS: Ondansetron 4 MG/2 ML VIAL IVP (22:24)
[2020-03-02 22:26] LABS: Abs Immature Grans 0.02 10^3/uL (0.0-0.06); Absolute Basophil Count 0.02 10^3/uL (0.0-0.2); Absolute Eosinophil Count 0.05 10^3/uL (0.0-0.7); Absolute Lymphocyte Count 1.12 10^3/uL (1.2-3.4); Absolute Monocyte Count 0.55 10^3/uL (0.1-0.8); Absolute Neutrophil Count 4.26 10^3/uL (1.2-6.7); Basophils % 0.3; Eosinophils % 0.8; HCT 39.1 % (40.0-50.0); HGB 12.8 g/dL (13.5-17.5); Immature Grans % 0.3; Lymphocytes % 18.6; MCH 32.2 pg (27.0-33.0); MCHC 32.7 % (32.0-36.0); MCV 98.2 fL (80-95); MPV 9.2 fL (8.0-11.0); Monocytes % 9.1; Neutrophils % 70.9; Nucleated RBC 0 %; RBC 3.98 10^6/uL (4.36-5.78); RDW 14.5 % (11.8-14.1); RDW-SD 52.5 fL; WBC 6.02 10^3/uL (4.4-10.8)
[2020-03-02 22:28] LABS: Platelet Count 300 10^3/uL (130-400)
[2020-03-02 22:43] LABS: Lactate 2.3 mmol/L (0.6-1.4)
[2020-03-02 22:49] LABS: ALT 18 U/L (16-63); AST 15 U/L (15-37); Albumin 2.7 g/dL (3.4-5.0); Alkaline Phosphatase 150 U/L (46-116); Anion Gap 9.9 mmol/L (3-11); BUN 5 mg/dL (7-18); Bilirubin, Total 0.3 mg/dL (0.2-1.0); CO2 27.1 mmol/L (21.0-32.0); CREATININE 0.68 mg/dL (0.70-1.30); Calcium 8.5 mg/dL (8.5-10.1); Chloride 102 mmol/L (98-107); Glucose 179 mg/dL (74-106); Magnesium 1.8 mg/dL (1.8-2.4); Potassium 3.2 mmol/L (3.5-5.1); Sodium 139 mmol/L (136-145); Total Protein 7.7 g/dL (6.4-8.2)
[2020-03-02 23:01] VITALS: BP 136/88; PULSE 116; PULSE 117; RESP 20; O2SAT 99
[2020-03-02 23:15] LABS: Lipase 2702 U/L (73-393); Troponin I < 0.05 ng/mL (<0.06)
[2020-03-02] MEDS: Normal Saline Flush 10 ML SYR IVP (23:18)
[2020-03-02 23:24] LABS: ETHANOL BLOOD 5.4 mg/dL (<3)
[2020-03-02] MEDS: Omnipaque 350 MG/ML 100 ML BTL IJ (23:46)
[2020-03-02] MEDS: Normal Saline - Diluent 50 ML VIAL IV (23:47)
[2020-03-02] MEDS: Potassium Chloride 20 MEQ TABCR 40 MEQ PO (23:47)
[2020-03-03] VITALS (9 sets, daily range): BP systolic 119–177; BP diastolic 76–104; PULSE 81–125; RESP 18–22; TEMP 36–37.4; O2SAT 95–99
--- NOTE | 2020-03-03 00:08 | DI.VRAD_ITS ---
PROCEDURE INFORMATION: Exam: CT Chest With Contrast; Diagnostic Exam date and time: 03/02/2020 11:33 PM Age: 59 years old Clinical indication: Abdominal tenderness; Patient HX: Abd pain, HX of pancreatitis, shortness of breath TECHNIQUE: Imaging protocol: Diagnostic computed tomography of the chest with intravenous contrast. COMPARISON: CT CHEST/ABD/PEL WO 01/15/2020 9:30 PM FINDINGS: Lungs: Hyperinflation. Interval, near complete resolution of previously demonstrated extensive bilateral interstitial infiltrates or alternatively development of scattered, new, small interstitial ground-glass infiltrates bilaterally. Dependent subsegmental atelectasis. 7 mm pleural based nodule or focal area of pleural thickening posteromedially in right upper lobe unchanged. Pleural space: No pleural effusion or pneumothorax. Heart: There are coronary artery calcifications. Mediastinal space: Small hiatal hernia. Pulmonary arteries: No pulmonary artery filling defects. Aorta: Ascending aorta minimally dilated to 3.5 cm. Lymph nodes: There are calcified mediastinal nodes consistent with remote granulomatous disease. Bones/joints: The spine demonstrates mild degenerative changes at multiple levels. No acute fracture. Soft tissues: Unremarkable. IMPRESSION: 1. New, scattered, small ground-glass infiltrates cannot be excluded in each lung. 2. Coronary artery disease. 3. Minimally dilated ascending aorta. 4. Small hiatal hernia. PROCEDURE INFORMATION: Exam: CT Abdomen And Pelvis With Contrast Exam date and time: 03/02/2020 11:33 PM Age: 59 years old Clinical indication: Abdominal tenderness; Patient HX: Abd pain, HX of pancreatitis, shortness of breath TECHNIQUE: Imaging protocol: Computed tomography of the abdomen and pelvis with intravenous contrast. COMPARISON: CT CHEST/ABD/PEL WO 01/15/2020 9:30 PM FINDINGS: Liver: Normal. No mass. Gallbladder and bile ducts: Normal. No calcified stones. No ductal dilation. Pancreas: Pancreas is smaller on comparison to prior study. Scattered parenchymal calcifications. Ductal dilatation to 10 mm. Peripancreatic fat stranding and fluid collection. Spleen: Normal. No splenomegaly. Adrenal glands: Normal. No mass. Kidneys and ureters: Normal. No hydronephrosis. Stomach and bowel: Distal duodenum and jejunum minimally dilated with prominent hyperenhancing mucosa and stranding of surrounding fat. Proximal ileum minimally dilated. Small bowel more distally normal in caliber. No colonic dilatation. Colonic diverticula. Appendix: Normal appendix. Intraperitoneal space: No free intraperitoneal gas. No pelvic ascites. Vasculature: Unremarkable. No abdominal aortic aneurysm. Lymph nodes: Unremarkable. No enlarged lymph nodes. Urinary bladder: Urinary bladder minimally distended without wall thickening. Reproductive: Unremarkable as visualized. Bones/joints: The spine demonstrates mild degenerative changes at multiple levels. No acute fracture. Soft tissues: Left inguinal canal distended with fat. IMPRESSION: 1. Acute on chronic pancreatitis. 2. Proximal enteritis may be reactive to process in pancreas. 3. Proximal small bowel ileus. 4. Colonic diverticula. 5. Distended urinary bladder. Dictated and Authenticated by: Benjamin Mckeon MD. Ordering:WAYNE Rodriguez MD
[2020-03-03 00:59] LABS: Bilirubin Negative (Negative); Blood Negative (Negative); Clarity Clear (Clear); Glucose Negative (Negative); Ketones Negative (Negative); Leukocyte Esterase Negative (Negative); Nitrite Negative (Negative); pH 6.5 (5-8)
--- NOTE | 2020-03-03 01:23 | W.PM.HP.N ---
Date of service: 03/03/20 Time of Service: 01:24 Assessment and Plan Assessment and plan (1) Acute on chronic pancreatitis: Status: Acute Assessment and plan: Related to Etoh intake. He is aware that even the occasional beer can exacerbate his chronic pancreatitis. He has also eaten a high fate diet. Does take Creon supplementation. GI rest with water / ice chips as tolerated. IV Dilaudid for pain control. Zofran for N/V. (2) Pneumonia: Status: Acute Assessment and plan: Previous PNA. No cough/sputum, F/C currently. WBC count normal. Radiologist reading of CT chest indicated possibly new ground-glass infiltrates. Pulmonary edema vs developing infiltrates w/o symptoms vs resolving PNA. Monitor. No antibiotics initiated. (3) Alcoholism /alcohol abuse: Status: Acute Assessment and plan: If he is being truthful / accurate regarding the amount of Etoh intake, doubt he will experience any significant withdrawal. Will monitor with CIWA and have prn Lorazepam available. MVI, thiamine, folate supplementation. History of Present Illness History of Present Illness Chief Complaint: abdominal pain Narrative: This is a 59 yo male with a PMH of chronic pancreatitis, alcohol abuse, RUE DVT, C.Diff, Pneumonia with ARDS. He is s/p admission to [facility] from 02/05/2020 to 02/07/2020 for acute on chronic pancreatitis. He was discharged after his pain improved and he was able to maintain oral intake. At time of this presentation he endorsed abd pain developing the night before. He did report drinking a beer at breakfast and has had one beer here and there since his last admission. He also ate a dinner of fried chicken and drank milk for dinner the evening of presentation. + N/V. Mild constipation. He endorsed some shortness of air without cough/sputum. No F/C. No melena/hematochezia. His WBC count was normal, Hgb 12.8, Lactate 2.3, K 3.2, troponin negative. Lipase of 2702. Etoh level of 5.4 Chest/abd/pelvis CT: New scattered small ground-glass infiltrates cannot be excluded. Pancreas appeared smaller than on previous scan with peripancreatic fat stranding and fluid collection. Review of Systems All systems reviewed & are unremarkable except as noted in HPI and below [facility] Medical History HTN (hypertension) Hx of hyperlipidemia Myocardial infarction x 2 Pancreatitis Pancreatitis, chronic Presence of pancreatic duct stent (~01/2018) Sean Sears Surgical History S/P ERCP (~01/2018) Sean Sears Family History Mother Alcohol abuse Father Alcohol abuse Social History Smoking/Tobacco Use Status: Current every day Tobacco Type: cigarettes Smoking packs per day: 1 Smoking cigarettes per day: 20.0 Smoking risk assessment performed?: Yes Alcohol Intake: current Alcohol Intake frequency: 3 or more drinks per day Alcohol type: beer Drug use: Never Details: no IV drug use Housing: apartment Do you feel safe at home: Yes Do you feel safe in your relationship?: Yes Meds Home Medications and Allergies Home Medications Medication Instructions Recorded Confirmed Type Creon 1 cap PO AC & HS #120 cap 01/28/20 03/02/20 Rx Eliquis 5 mg PO BID #60 tab 01/28/20 03/02/20 Rx folic acid 1 mg PO DAILY #30 tab 01/28/20 03/02/20 Rx guaifenesin [Mucinex] 600 mg PO BID PRN #20 tab 01/28/20 03/02/20 Rx multivitamin 1 tab PO DAILY #30 tab 01/28/20 03/02/20 Rx thiamine HCl (vitamin B1) 100 mg PO DAILY #30 tab 01/28/20 03/02/20 Rx tamsulosin 0.8 mg PO DAILY #30 cap 02/07/20 03/02/20 Rx Allergies Allergy/AdvReac Type Severity Reaction Status Date / Time Penicillins Allergy Unverified 02/04/20 14:55 Exam Const General: cooperative and no acute distress Nutritional Appearance: average body habitus Orientation: alert and oriented x3 Eyes Sclera: sclerae normal Pupils: PERRL Resp Effort & Inspection: normal respiratory effort Auscultation: clear to auscultation bilaterally Cardio Rate: tachycardic Rhythm: regular rhythm Heart Sounds: S1 normal and S2 normal GI Palpation: soft and tender in the LUQ Auscultation: hyperactive bowel sounds Skin General skin exam: no rashes or lesions noted Other: Multiple tattoos. Neuro General: moves all extremities and no focal motor deficits Speech: speech normal Extrem General: no pedal edema and no calf tenderness Results Labs Result diagrams: 03/02/20 22:10 03/02/20 22:10 Labs: Laboratory Results - last 24 hr 03/02/20 03/02/20 03/02/20 22:10 22:10 22:10 WBC 6.02 RBC 3.98 L Hgb 12.8 L Hct 39.1 L MCV 98.2 H MCH 32.2 MCHC 32.7 RDW 14.5 H Plt Count 300 D MPV 9.2 Immature Gran % 0.3 Neutrophils % 70.9 Lymphocytes % 18.6 Monocytes % 9.1 Eosinophils % 0.8 Basophils % 0.3 Nucleated RBC % 0 Absolute Neutrophils 4.26 Absolute Lymphocytes 1.12 L Absolute Monocytes 0.55 Absolute Eosinophils 0.05 Absolute Basophils 0.02 VBG Lactate 2.3 H* Sodium 139 Potassium 3.2 L Chloride 102 Carbon Dioxide 27.1 Anion Gap 9.9 BUN 5 L Creatinine 0.68 L Estimated GFR/1.73 m2 >= 60.00 Glucose 179 H Calcium 8.5 Magnesium 1.8 Total Bilirubin 0.3 AST 15 ALT 18 Alkaline Phosphatase 150 H Troponin I < 0.05 Total Protein 7.7 Albumin 2.7 L Lipase 2702 H Urine Color Urine Clarity Urine pH Ur Specific [place] Urine Protein Urine Ketones Urine Blood Urine Nitrite Urine Bilirubin Urine Urobilinogen Ur Leukocyte Esterase Urine Glucose Ethyl Alcohol 03/02/20 03/03/20 22:28 00:43 WBC RBC Hgb Hct MCV MCH MCHC RDW Plt Count MPV Immature Gran % Neutrophils % Lymphocytes % Monocytes % Eosinophils % Basophils % Nucleated RBC % Absolute Neutrophils Absolute Lymphocytes Absolute Monocytes Absolute Eosinophils Absolute Basophils VBG Lactate Sodium Potassium Chloride Carbon Dioxide Anion Gap BUN Creatinine Estimated GFR/1.73 m2 Glucose Calcium Magnesium Total Bilirubin AST ALT Alkaline Phosphatase Troponin I Total Protein Albumin Lipase Urine Color Yellow Urine Clarity Clear Urine pH 6.5 Ur Specific [place] 1.020 Urine Protein Negative Urine Ketones Negative Urine Blood Negative Urine Nitrite Negative Urine Bilirubin Negative Urine Urobilinogen 1.0 H Ur Leukocyte Esterase Negative Urine Glucose Negative Ethyl Alcohol 5.4 Last Vital Signs Temp 36.6 C 03/03/20 00:42 Pulse 121 H 03/03/20 00:39 Resp 20 03/02/20 23:01 BP 165/104 H 03/03/20 00:39 Pulse Ox 95 03/03/20 00:39 COVID-19 Screening Have you, or household traveled for leisure in last 14 days?: No Had IN PERSON contact w/suspected or confirmed C-19 person: No
[2020-03-03] MEDS: Normal Saline 1,000 ML 125 ML IV ×3 (01:58→16:58)
[2020-03-03] MEDS: Normal Saline Flush 10 ML SYR IVP ×4 (01:59→21:04)
[2020-03-03] MEDS: HYDROmorphone 2 MG/ML VIAL 1 MG IVP ×7 (02:12→21:03)
[2020-03-03 02:36] LABS: Troponin I < 0.05 ng/mL (<0.06)
[2020-03-03 07:24] LABS: ALT 13 U/L (16-63); AST 10 U/L (15-37); Albumin 2.1 g/dL (3.4-5.0); Alkaline Phosphatase 121 U/L (46-116); Anion Gap 7.3 mmol/L (3-11); BUN 3 mg/dL (7-18); Bilirubin, Total 0.5 mg/dL (0.2-1.0); CO2 24.7 mmol/L (21.0-32.0); CREATININE 0.55 mg/dL (0.70-1.30); Calcium 8.3 mg/dL (8.5-10.1); Chloride 107 mmol/L (98-107); Glucose 96 mg/dL (74-106); Potassium 3.7 mmol/L (3.5-5.1); Sodium 139 mmol/L (136-145); Total Protein 6.2 g/dL (6.4-8.2)
[2020-03-03] MEDS: Tamsulosin 0.4 MG CAPCR 0.8 MG PO (08:03)
[2020-03-03] MEDS: Apixaban 5 MG TAB PO ×2 (08:03→19:52)
[2020-03-03] MEDS: Multivitamin TAB 1 TAB PO (08:03)
[2020-03-03] MEDS: Thiamine 100 MG TAB PO (08:03)
[2020-03-03] MEDS: Folic Acid 1 MG TAB PO (08:03)
[2020-03-03] MEDS: Acetaminophen 325 MG TAB 650 MG PO ×2 (08:07→17:00)
[2020-03-03] MEDS: Nicotine 21 MG/24 HR PATCH TD (08:07)
--- NOTE | 2020-03-03 08:59 | INITIAL_ITS ---
- If Service Date Differs Date of service: 03/03/20 Time of Service: 08:59 Care Management Initial Assess REASON FOR HOSPITALIZATION:: Acute on chronic pancreatitis. PAST MEDICAL HISTORY/PAST SURGICAL HISTORY:: Medical History: HTN (hypertension), Hx of hyperlipidemia, Myocardial infarction x 2, Pancreatitis, chronic, and Presence of pancreatic duct stent (~01/2018) - Sean Sears Surgical History: S/P ERCP (~01/2018) - Sean Sears PREVIOUS FUNCTIONAL STATUS/SOCIAL/FAMILY SUPPORTS:: Juan Jose reports he lives in an apartment in [place] with his , [id number], and [id number]. He spends his free time playing music, watching television, and talking with family and friends. He names his and Klarissa, personal development coach, as sources of support, in addition to a few friends. CURRENT FUNCTIONAL STATUS:: Juan Jose is laying in bed watching television when CM comes to meet with him. He shares he has been in a lot of pain due to the pancreatitis and states the pain is under control with the medications he is receiving at the hospital. He expresses gratitude for his treatment team and for being well cared for at [facility]. ADVANCE DIRECTIVES:: None on file; Juan Jose states he has a form but has not completed it yet. Has patient been provided with info about the portal/API?: Yes Did the patient sign up for the portal?: No (Patient declines) CODE STATUS:: Full Code INSURANCE COVERAGE / FINANCIAL ISSUES:: Medicaid. CURRENT HOME/COMMUNITY SERVICES/EQUIPMENT:: Juan Jose has a personal development coach through [facility]. He has no other home or community services and no medical equipment. PRIMARY CARE PHYSICIAN:: Gregoria Perez MD POTENTIAL DISCHARGE NEEDS:: Follow up appointment with PCP. PATIENT/FAMILY EDUCATION NEEDS:: Discharge instructions, limitations, follow up plan of care including Ask Me Three and self management. ANTICIPATED BARRIERS TO DISCHARGE:: None. TRANSPORTATION:: Via RCT coordinated by CM vs private vehicle with family. PLAN:: Anticipate Juan Jose will be discharged home when medically cleared by provider. He will follow up with his PCP and discharge plan of care as directed. Transport home will be via private vehicle with family vs. RCT coordinated by CM. CM will continue to support Juan Jose and discharge planning needs. Readmission - Within the Past 30 Days Yes or No: Y - Date of First Admission Date of 1st Admission: 02/04/20 - Date of this Admission Date of Admission: 03/03/20 This admission was: Through ED - Office Visit Since 1st Admission Have you seen your PCP in the office since discharge?: No Had an appointment Been Scheduled?: No Describe barriers for scheduling or getting an appointment: Did not have an assigned PCP yet. Will be establishing care with [facility] in March 2020. - Speicalist Appointments Have you seen any other specialist since your 1st Admission?: No - I. Interview patient and/or Family Difficulty reaching your doctor or getting an office appt?: No Have you had trouble purchasing/ or taking medication?: No How do you take your medications and set up your pills?: Patient reports he is not on any medications. Have you had trouble with getting meals at home?: No Describe your typical meals since you have been home: Home cooked meals. Did you feel ready for discharge when you left the last time: Yes (History of leaving AMA) What services were received?: No services were set up at discharge. Reason there were no orders at discharge: Patient left AMA. Did you call your physician beore you came to the ED?: No Did your physician tell you to come in?: No How do you think you became sick enough to come back?: Flare up of pancreatitis. - If the patient had a VNA ordered Did the patient have a VNA order?: No - Ask the Care Team Members: What do you think caused the patient to be readmitted: Consumption of alcohol and marijuana causes flare up of pancreatitis. - ED visits How many ED visits in the past 12 months: 14 - Assessment for Readmission Summary of readmission circumstances, based upon interviews: Patient has chronic pancreatitis related to ETOH intake and high fat diet.
--- NOTE | 2020-03-03 11:46 | W.PM.PROGNOT ---
Date of Service Date of service: 03/03/20 Time of Service: 11:47 Assessment and Plan Assessment and plan (1) Acute on chronic pancreatitis: Status: Acute Assessment and plan: Related to Etoh intake. He is aware that even the occasional beer can exacerbate his chronic pancreatitis. He has also eaten a high fate diet. Does take Creon supplementation. GI rest with water / ice chips as tolerated. IV Dilaudid for pain control. Zofran for N/V. (2) Alcoholism /alcohol abuse: Status: Acute Assessment and plan: Will monitor with CIWA and have prn Lorazepam available. MVI, thiamine, folate supplementation. Patient is continuing to drink couple beers occasionally. As blood alcohol level was detectable at 5.4 mg/dL. However his CIWA score remains 0. We will monitor for now. If he needs prophylaxis I would initiate either Serax or Librium and use either Valium or lorazepam prn for acute symptom management (3) Deep vein thrombosis (DVT) of right upper extremity: Status: Acute Assessment and plan: Continue Eliquis 5 mg p.o. twice daily. Note that his chronic use of Eliquis eliminates the possibility of treating any alcohol withdrawal with phenobarbital due to phenobarbital being a strong CYP 3 A4 enhancer and can reduce the effective levels of apixaban. Qualifiers: Chronicity: chronic (4) Ground glass opacity present on imaging of lung: Status: Acute Assessment and plan: CT scan of the chest last night reportedly showed new small scattered bilateral interstitial groundglass infiltrates. This very well may be residual abnormalities from his previous ARDS/pneumonia for which she was treated at [facility] in December 2019. As the patient is afebrile and not coughing up any purulent sputum and has no leukocytosis I would not initiate antibiotic therapy particularly given his history of C. difficile colitis. Subjective Subjective Interval history since last seen: No nausea or vomiting today but he is having increased abdominal pain. He denies any tremors or hallucinations. He says he has never gone into DTs. CIWA score 0 this morning. Exam Narrative Exam Narrative: Middle-age male who is alert and oriented person place time circumstance. Lungs are clear to auscultation Heart regular rate and rhythm Abdomen soft but diffusely tender without rebound tenderness. Hands and arms without tremors. Skin is warm and dry Objective Last Vital Signs Temp 37.0 C 03/03/20 11:19 Pulse 86 03/03/20 11:19 Resp 19 03/03/20 11:19 BP 145/76 H 03/03/20 11:19 Pulse Ox 97 03/03/20 11:19 Laboratory Results - last 24 hr 03/02/20 03/02/20 03/02/20 22:10 22:10 22:10 WBC 6.02 RBC 3.98 L Hgb 12.8 L Hct 39.1 L MCV 98.2 H MCH 32.2 MCHC 32.7 RDW 14.5 H Plt Count 300 D MPV 9.2 Immature Gran % 0.3 Neutrophils % 70.9 Lymphocytes % 18.6 Monocytes % 9.1 Eosinophils % 0.8 Basophils % 0.3 Nucleated RBC % 0 Absolute Neutrophils 4.26 Absolute Lymphocytes 1.12 L Absolute Monocytes 0.55 Absolute Eosinophils 0.05 Absolute Basophils 0.02 VBG Lactate 2.3 H* Sodium 139 Potassium 3.2 L Chloride 102 Carbon Dioxide 27.1 Anion Gap 9.9 BUN 5 L Creatinine 0.68 L Estimated GFR/1.73 m2 >= 60.00 Glucose 179 H Calcium 8.5 Magnesium 1.8 Total Bilirubin 0.3 AST 15 ALT 18 Alkaline Phosphatase 150 H Troponin I < 0.05 Total Protein 7.7 Albumin 2.7 L Lipase 2702 H Urine Color Urine Clarity Urine pH Ur Specific [place] Urine Protein Urine Ketones Urine Blood Urine Nitrite Urine Bilirubin Urine Urobilinogen Ur Leukocyte Esterase Urine Glucose Ethyl Alcohol 03/02/20 03/03/20 03/03/20 22:28 00:43 02:00 WBC RBC Hgb Hct MCV MCH MCHC RDW Plt Count MPV Immature Gran % Neutrophils % Lymphocytes % Monocytes % Eosinophils % Basophils % Nucleated RBC % Absolute Neutrophils Absolute Lymphocytes Absolute Monocytes Absolute Eosinophils Absolute Basophils VBG Lactate Sodium Potassium Chloride Carbon Dioxide Anion Gap BUN Creatinine Estimated GFR/1.73 m2 Glucose Calcium Magnesium Total Bilirubin AST ALT Alkaline Phosphatase Troponin I < 0.05 Total Protein Albumin Lipase Urine Color Yellow Urine Clarity Clear Urine pH 6.5 Ur Specific [place] 1.020 Urine Protein Negative Urine Ketones Negative Urine Blood Negative Urine Nitrite Negative Urine Bilirubin Negative Urine Urobilinogen 1.0 H Ur Leukocyte Esterase Negative Urine Glucose Negative Ethyl Alcohol 5.4 03/03/20 06:38 WBC RBC Hgb Hct MCV MCH MCHC RDW Plt Count MPV Immature Gran % Neutrophils % Lymphocytes % Monocytes % Eosinophils % Basophils % Nucleated RBC % Absolute Neutrophils Absolute Lymphocytes Absolute Monocytes Absolute Eosinophils Absolute Basophils VBG Lactate Sodium 139 Potassium 3.7 Chloride 107 Carbon Dioxide 24.7 Anion Gap 7.3 BUN 3 L Creatinine 0.55 L Estimated GFR/1.73 m2 >= 60.00 Glucose 96 D Calcium 8.3 L Magnesium Total Bilirubin 0.5 AST 10 L ALT 13 L Alkaline Phosphatase 121 H Troponin I Total Protein 6.2 L Albumin 2.1 L Lipase Urine Color Urine Clarity Urine pH Ur Specific [place] Urine Protein Urine Ketones Urine Blood Urine Nitrite Urine Bilirubin Urine Urobilinogen Ur Leukocyte Esterase Urine Glucose Ethyl Alcohol
[2020-03-03 21:07] LABS: COVID-19 RT-PCR UVMMC Result Negative (Negative)
[2020-03-04] MEDS: Normal Saline 1,000 ML 125 ML IV ×2 (00:56→08:12)
[2020-03-04 03:29] VITALS: PULSE 89; RESP 18; TEMP 36.7; O2SAT 97
[2020-03-04 07:02] LABS: Abs Immature Grans 0.01 10^3/uL (0.0-0.06); Absolute Basophil Count 0.04 10^3/uL (0.0-0.2); Absolute Eosinophil Count 0.09 10^3/uL (0.0-0.7); Absolute Lymphocyte Count 1.35 10^3/uL (1.2-3.4); Absolute Monocyte Count 0.51 10^3/uL (0.1-0.8); Absolute Neutrophil Count 4.84 10^3/uL (1.2-6.7); Basophils % 0.6; Eosinophils % 1.3; HCT 37.7 % (40.0-50.0); HGB 11.8 g/dL (13.5-17.5); Immature Grans % 0.1; Lymphocytes % 19.7; MCH 31.8 pg (27.0-33.0); MCHC 31.3 % (32.0-36.0); MCV 101.6 fL (80-95); MPV 9.6 fL (8.0-11.0); Monocytes % 7.5; Neutrophils % 70.8; Nucleated RBC 0 %; Platelet Count 287 10^3/uL (130-400); RBC 3.71 10^6/uL (4.36-5.78); RDW 14.5 % (11.8-14.1); RDW-SD 54.1 fL; WBC 6.84 10^3/uL (4.4-10.8)
[2020-03-04 07:17] LABS: ALT 14 U/L (16-63); AST 16 U/L (15-37); Albumin 2.3 g/dL (3.4-5.0); Alkaline Phosphatase 127 U/L (46-116); Anion Gap 13.4 mmol/L (3-11); BUN 5 mg/dL (7-18); Bilirubin, Total 0.7 mg/dL (0.2-1.0); C-Reactive Protein 8.58 mg/dL (0.0-0.3); CO2 21.6 mmol/L (21.0-32.0); CREATININE 0.64 mg/dL (0.70-1.30); Calcium 8.2 mg/dL (8.5-10.1); Chloride 106 mmol/L (98-107); Glucose 69 mg/dL (74-106); Lipase 65 U/L (73-393); Potassium 4.1 mmol/L (3.5-5.1); Sodium 141 mmol/L (136-145); Total Protein 6.6 g/dL (6.4-8.2)
[2020-03-04 07:33] LABS: Procalcitonin < 0.1 ng/mL
[2020-03-04 07:57] VITALS: BP 162/76; PULSE 104; RESP 18; TEMP 35.8; O2SAT 97
[2020-03-04] MEDS: HYDROmorphone 2 MG/ML VIAL 1 MG IVP ×4 (08:09→18:29)
[2020-03-04] MEDS: Nicotine 21 MG/24 HR PATCH TD (08:10)
[2020-03-04] MEDS: Apixaban 5 MG TAB PO ×2 (08:11→20:10)
[2020-03-04] MEDS: Folic Acid 1 MG TAB PO (08:11)
[2020-03-04] MEDS: Thiamine 100 MG TAB PO (08:11)
[2020-03-04] MEDS: Acetaminophen 325 MG TAB 650 MG PO ×2 (08:11→18:29)
[2020-03-04] MEDS: Tamsulosin 0.4 MG CAPCR 0.8 MG PO (08:12)
[2020-03-04] MEDS: Multivitamin TAB 1 TAB PO (08:12)
--- NOTE | 2020-03-04 10:54 | W.PM.PROGNOT ---
Date of Service Date of service: 03/04/20 Time of Service: 10:54 Assessment and Plan Assessment and plan (1) Acute on chronic pancreatitis: Status: Acute Assessment and plan: Trial of clear liquids. If he fails this then he will go back to n.p.o. status. Continue with analgesics with a goal to transition from parenteral analgesics to oral analgesics. If he is tolerating clear liquid diet I will advance his diet and add his pancreatic enzyme replacements of Creon. Patient needs to refrain from further alcohol. (2) Alcoholism /alcohol abuse: Status: Acute Assessment and plan: CIWA scoring has remained 0. He has not required any lorazepam for alcohol withdrawal. Patient understands he needs to refrain from alcohol if he does not want to have long-term damage from his pancreatitis. Patient should consider going into outpatient alcohol treatment counseling and even consider medication such as Antabuse or acamprosate. (3) Deep vein thrombosis (DVT) of right upper extremity: Status: Acute Assessment and plan: Continue Eliquis 5 mg p.o. twice daily. Note that his chronic use of Eliquis eliminates the possibility of treating any alcohol withdrawal with phenobarbital due to phenobarbital being a strong CYP 3 A4 enhancer and can reduce the effective levels of apixaban. Qualifiers: Chronicity: chronic (4) Ground glass opacity present on imaging of lung: Status: Acute Assessment and plan: CT scan of the chest last night reportedly showed new small scattered bilateral interstitial groundglass infiltrates. This very well may be residual abnormalities from his previous ARDS/pneumonia for which she was treated at [facility] in December 2019. As the patient is afebrile and not coughing up any purulent sputum and has no leukocytosis I would not initiate antibiotic therapy particularly given his history of C. difficile colitis. Subjective Subjective Interval history since last seen: Per nursing staff patient went overnight without parenteral narcotics until 8 AM this morning. Patient reports his pain is an 8 out of 10 however he says he is hungry and would like to try eating. His lipase is down to 65 this morning. AST and ALT have normalized and alkaline phosphatase is minimally above normal at 127. CRP is elevated 8.5 but procalcitonin levels less than 0.1. CBC shows normal white count 6800 with a stable macrocytic anemia with hemoglobin 11.8 g hematocrit 37%. I told Juan Jose that we could try him on a full liquid diet but if he has increased pain and requires parenteral narcotics to control his pain then we will have to back off his feeding. He understands this. Exam Narrative Exam Narrative: Middle-age male sitting up in bed in no distress despite claiming that his pain is an 8 out of 10. Lungs with some scattered adventitious sounds that clear with coughing and deep breathing. Heart regular rate and rhythm Abdomen soft with normal bowel sounds with some mild epigastric and left upper quadrant tenderness. Objective Last Vital Signs Temp 35.8 C L 03/04/20 07:57 Pulse 104 H 03/04/20 07:57 Resp 18 03/04/20 07:57 BP 162/76 H 03/04/20 07:57 Pulse Ox 97 03/04/20 07:57 Laboratory Results - last 24 hr 03/03/20 03/04/20 03/04/20 00:23 06:30 06:30 WBC 6.84 RBC 3.71 L Hgb 11.8 L Hct 37.7 L MCV 101.6 H MCH 31.8 MCHC 31.3 L RDW 14.5 H Plt Count 287 MPV 9.6 Immature Gran % 0.1 Neutrophils % 70.8 Lymphocytes % 19.7 Monocytes % 7.5 Eosinophils % 1.3 Basophils % 0.6 Nucleated RBC % 0 Absolute Neutrophils 4.84 Absolute Lymphocytes 1.35 Absolute Monocytes 0.51 Absolute Eosinophils 0.09 Absolute Basophils 0.04 Sodium 141 Potassium 4.1 Chloride 106 Carbon Dioxide 21.6 Anion Gap 13.4 H BUN 5 L Creatinine 0.64 L Estimated GFR/1.73 m2 >= 60.00 Glucose 69 L Calcium 8.2 L Total Bilirubin 0.7 AST 16 ALT 14 L Alkaline Phosphatase 127 H C-Reactive Protein 8.58 H Total Protein 6.6 Albumin 2.3 L Lipase 65 Procalcitonin SARS-CoV-2 (PCR) Negative Nasopharyn COVID-19 PCR Not Applicable Ref Test Perform Site [facility] lab 03/04/20 06:40 WBC RBC Hgb Hct MCV MCH MCHC RDW Plt Count MPV Immature Gran % Neutrophils % Lymphocytes % Monocytes % Eosinophils % Basophils % Nucleated RBC % Absolute Neutrophils Absolute Lymphocytes Absolute Monocytes Absolute Eosinophils Absolute Basophils Sodium Potassium Chloride Carbon Dioxide Anion Gap BUN Creatinine Estimated GFR/1.73 m2 Glucose Calcium Total Bilirubin AST ALT Alkaline Phosphatase C-Reactive Protein Total Protein Albumin Lipase Procalcitonin < 0.1 SARS-CoV-2 (PCR) Nasopharyn COVID-19 PCR Ref Test Perform Site
[2020-03-04 11:16] VITALS: BP 162/77; PULSE 109; RESP 17; TEMP 37.1; O2SAT 97
[2020-03-04 12:15] LABS: Vitamin B12 502 pg/mL (193-986)
--- NOTE | 2020-03-04 14:50 | CHAPLAIN ---
Juan Jose was resting in bed when I visited. He said he is feeling better and ate some lunch today. His , mother in law, and brother in law are all checking in on him by phone, he said. Juan Jose expressed his gratitude for the care he's receiving.
--- NOTE | 2020-03-04 15:33 | PDOC.CMPRO ---
Care Management Progress Note S/O: Juan Jose is not scoring on the CIWA protocol per MD. His diet was advanced to clears with monitoring of toleration. No change to overall plan. CM continues to follow. A: 59 year old male admitted to [facility] P: Anticipate Juan Jose will be discharged home when medically cleared by provider. He will follow up with his PCP and discharge plan of care as directed, as well as his volleyball coach; Katt. Transport home will be via private vehicle with family vs. RCT coordinated by CM. CM will continue to support Juan Jose and discharge planning needs.
[2020-03-04 15:40] VITALS: BP 168/93; PULSE 96; RESP 16; TEMP 37.3; O2SAT 96
--- NOTE | 2020-03-04 16:45 | PHA.REVIEW ---
Pharmacy Admission Review - Admission Clinical Review (Last Updated 03/03/20 @ 12:09 by Elias Espino) Ground glass opacity present on imaging of lung (Acute) Acute on chronic pancreatitis (Acute) Pneumonia (Acute) Deep vein thrombosis (DVT) of right upper extremity (Acute) Alcoholism /alcohol abuse (Acute) Penicillins Allergy (Unverified 02/04/20 14:55) Height 5 ft 7 in Weight 64 kg - Renal Dosing Renal Dosing: BUN 5 mg/dL (7-18) L 03/04/20 06:30 Creatinine 0.64 mg/dL (0.70-1.30) L 03/04/20 06:30 Medications needing adjustments: Reviewed (Crcl ~88 mL/min current meds okay) - Anticoagulation Anticoagulation: Hgb 11.8 g/dL (13.5-17.5) L 03/04/20 06:30 Hct 37.7 % (40.0-50.0) L 03/04/20 06:30 Plt Count 287 10^3/uL (130-400) 03/04/20 06:30 Creatinine 0.64 mg/dL (0.70-1.30) L 03/04/20 06:30 DVT Prohphylaxis: N/A Therapeutic Anticoagulation: Reviewed Medications: Apixaban - Opiate Usage Evaluate Pain Scale/Pains Meds: Reviewed Scheduled Bowel Reg ordered if on Opiates?: No (will mention to provider) - Relevant Labs Sodium 141 mmol/L (136-145) 03/04/20 06:30 Potassium 4.1 mmol/L (3.5-5.1) 03/04/20 06:30 Chloride 106 mmol/L (98-107) 03/04/20 06:30 Magnesium 1.8 mg/dL (1.8-2.4) 03/02/20 22:10 C-Reactive Protein 8.58 mg/dL (0.0-0.3) H 03/04/20 06:30 Electrolytes, C-Reactive P, ESR: Reviewed - DM Control DM Control: Glucose 69 mg/dL (74-106) L 03/04/20 06:30 Insulin Dosing: N/A - Heart Failure/WI Heart Failure/WI: Troponin I < 0.05 ng/mL (<0.06) 03/03/20 02:00 EF%, EDWINA's, B-Blockers, Diuretics: Reviewed - BP Control BP Control: Blood Pressure 168/93 Blood Pressure 162/77 Blood Pressure 162/76 If elevated: Intervened (Has HTN listed in medical history but not on any BP meds at home or here. Will mention to provider) - Qtc Review If Elevated: Reviewed (QTc 474 on admission has ondansetron ordered) - IV to PO Switch IV Medications: Reviewed - Home Meds Home Med List reviewed: Reviewed (teressa ennis) - Current meds Current Medication Order Review: Reviewed - Comments Comments/Follow Ups: Watch BP, labs, and for med changes (need of BM meds, home meds ordered, avoid QT prolonging meds).
[2020-03-04 20:00] VITALS: BP 169/89; PULSE 98; RESP 17; TEMP 37; O2SAT 97
[2020-03-04] MEDS: Normal Saline 1,000 ML 75 ML IV (20:10)
[2020-03-04 23:56] VITALS: BP 162/70; PULSE 99; RESP 16; TEMP 36.6; O2SAT 95
[2020-03-05 03:53] VITALS: BP 156/86; PULSE 90; RESP 19; TEMP 37.2; O2SAT 97
[2020-03-05] MEDS: Normal Saline 1,000 ML 75 ML IV (06:19)
[2020-03-05 06:58] LABS: Abs Immature Grans 0.02 10^3/uL (0.0-0.06); Absolute Basophil Count 0.04 10^3/uL (0.0-0.2); Absolute Eosinophil Count 0.13 10^3/uL (0.0-0.7); Absolute Lymphocyte Count 1.04 10^3/uL (1.2-3.4); Absolute Monocyte Count 0.43 10^3/uL (0.1-0.8); Absolute Neutrophil Count 2.65 10^3/uL (1.2-6.7); Basophils % 0.9; HGB 11.2 g/dL (13.5-17.5); Immature Grans % 0.5; Lymphocytes % 24.1; MCH 32.1 pg (27.0-33.0); MCHC 32.9 % (32.0-36.0); MCV 97.4 fL (80-95); MPV 9.8 fL (8.0-11.0); Neutrophils % 61.5; Nucleated RBC 0 %; Platelet Count 331 10^3/uL (130-400); RBC 3.49 10^6/uL (4.36-5.78); RDW 14.1 % (11.8-14.1); RDW-SD 50.5 fL; WBC 4.31 10^3/uL (4.4-10.8)
[2020-03-05 07:03] LABS: ALT 12 U/L (16-63); AST 15 U/L (15-37); Alkaline Phosphatase 101 U/L (46-116); Anion Gap 7.1 mmol/L (3-11); BUN 3 mg/dL (7-18); Bilirubin, Total 0.4 mg/dL (0.2-1.0); CO2 23.9 mmol/L (21.0-32.0); Calcium 7.9 mg/dL (8.5-10.1); Chloride 105 mmol/L (98-107); Glucose 104 mg/dL (74-106); Lipase 41 U/L (73-393); Potassium 3.3 mmol/L (3.5-5.1); Sodium 136 mmol/L (136-145); Total Protein 5.9 g/dL (6.4-8.2)
[2020-03-05] MEDS: Folic Acid 1 MG TAB PO (07:36)
[2020-03-05] MEDS: Tamsulosin 0.4 MG CAPCR 0.8 MG PO (07:36)
[2020-03-05] MEDS: Multivitamin TAB 1 TAB PO (07:36)
[2020-03-05] MEDS: Thiamine 100 MG TAB PO (07:36)
[2020-03-05] MEDS: Apixaban 5 MG TAB PO (07:36)
[2020-03-05 08:28] VITALS: BP 176/102; PULSE 96; RESP 18; TEMP 37.2; O2SAT 96
[2020-03-05 10:00] VITALS: BP 164/96; PULSE 110
[2020-03-05] MEDS: Carvedilol 6.25 MG TAB PO (10:05)
--- NOTE | 2020-03-05 11:19 | W.PM.DS.N ---
Date of service: 03/05/20 Time of Service: 11:19 DS: Diagnosis Discharge Diagnosis (1) Acute on chronic pancreatitis: Status: Resolved Asessment and Plan: Patient's acute pancreatitis appeared to have resolved as his lipase had returned to normal. However the patient is at risk for further exacerbations due to his failure to maintain abstinence from alcohol. As the patient left AGAINST MEDICAL ADVICE no follow-up appointment or follow-up labs were arranged for him and the patient will need to contact his PCP for any follow-up testing or medications. (2) Alcoholism /alcohol abuse: Status: Chronic (3) Deep vein thrombosis (DVT) of right upper extremity: Status: Chronic Asessment and Plan: 0 (4) Ground glass opacity present on imaging of lung: Status: Chronic Asessment and Plan: Groundglass opacities on CT imaging of his chest were felt to be residual damage from his previous aspiration pneumonia. Follow-up imaging in 3 to 6 months is recommended to monitor for resolution. Discharge Plan Disposition Patient Disposition: AGAINST MEDICAL ADVICE Condition: Stable Discharge Details Reason For Visit: ACUTE ON CHRONIC PANCREATITIS Admit Date/Time: 03/03/20 00:37 Admit Provider: Jaspreet Dvuall Attending Provider: Jaspreet Duvall Primary Care Provider: Gregoria Perez Hospital Course Hospital Course: This is a 59 yo male with a PMH of chronic pancreatitis, alcohol abuse, RUE DVT, C.Diff, Pneumonia with ARDS. He is s/p admission to [facility] from 02/05/2020 to 02/07/2020 for acute on chronic pancreatitis. He was discharged after his pain improved and he was able to maintain oral intake. At time of this presentation he endorsed abd pain developing the night before. He did report drinking a beer at breakfast and has had one beer here and there since his last admission. He also ate a dinner of fried chicken and drank milk for dinner the evening of presentation. + N/V. Mild constipation. He endorsed some shortness of air without cough/sputum. No F/C. No melena/hematochezia. His WBC count was normal, Hgb 12.8, Lactate 2.3, K 3.2, troponin negative. Lipase of 2702. Etoh level of 5.4 Chest/abd/pelvis CT: New scattered small ground-glass infiltrates cannot be excluded. Pancreas appeared smaller than on previous scan with peripancreatic fat stranding and fluid collection. Patient was admitted to the medical/surgical floor and made n.p.o. and given IV fluids. Electrolytes were replaced. Daily labs were monitored including CBC and CMP and lipase. Lipase quickly resolved overnight coming down from 2700 down to 65. Electrolytes were readily corrected. He had no leukocytosis and his chronic anemia remained stable. Patient's diet was advanced to clear liquids which he tolerated as the patient was hungry his lipase had resolved he was advanced to a low-fat solid diet. Despite this he continued to request IV narcotics although his rating of pain seem to be out of proportion to his physical findings and discordant with his ability to eat and have no nausea or vomiting. On the day of discharge the patient became impatient and would not wait for me to complete his discharge and therefore he left AGAINST MEDICAL ADVICE. No prescriptions were written for him and no follow-up labs were ordered for him. Patient will need to follow-up with his primary care provider for further monitoring of his pancreatitis and for any additional medications. Home Meds and New Rx's Prescriptions: No Action Eliquis 5 mg tablet 5 mg PO BID Qty: 60 RF: 0 folic acid 1 mg tablet 1 mg PO DAILY Qty: 30 RF: 0 guaifenesin [Mucinex] 600 mg tablet extended release 12hr 600 mg PO BID PRN (Reason: cough) Qty: 20 RF: 0 Creon 12,000-38,000 -60,000 unit capsule,delayed release(DR/EC) 1 cap PO AC & HS Qty: 120 RF: 0 multivitamin Tablet 1 tab PO DAILY Qty: 30 RF: 0 thiamine HCl (vitamin B1) 100 mg tablet 100 mg PO DAILY Qty: 30 RF: 0 tamsulosin 0.4 mg Capsule 0.8 mg PO DAILY Qty: 30 RF: 0 Discharge Data Discharge Date/Time-TO BE ENTERED AT DEPARTURE: 03/05/20 10:48 DS: Summary Status at Discharge Functional status at discharge: independent ambulation Overall status at discharge: patient is back to baseline Mental Status: mental status grossly normal Speech and Movement: speech and movement normal Mood: congruent mood Affect: normal affect Time Spent with Patient providing and/or coordinating discharge services: Less than 30 minutes Exam Narrative Exam Narrative: No exam done on the day of discharge as the patient left AMA Psych Mental Status: mental status grossly normal Speech and Movement: speech and movement normal Mood: congruent mood Affect: normal affect DS: Data Vitals/I&O Vitals and I&O: Vital Signs Temperature 37.2 C 03/05/20 08:28 Temperature Source Tympanic 03/05/20 08:28 Pulse 110 H 03/05/20 10:00 Pulse Rhythm Regular 03/05/20 07:45 Pulse 117 H 03/02/20 23:01 Respiratory Rate 18 03/05/20 08:28 Respiratory Effort Non-Labored 03/05/20 07:45 Respiratory Depth Normal 03/05/20 07:45 Respiratory Pattern Normal 03/05/20 07:45 Blood Pressure 164/96 H 03/05/20 10:00 Blood Pressure Mean 117 03/03/20 00:39 Blood Pressure Position Supine 03/02/20 22:01 Pulse Oximetry 96 03/05/20 08:28 Oxygen Delivery Method Room Air 03/05/20 08:28 Oxygen Flow Rate 0 03/05/20 08:28 Pain Level 0 03/05/20 08:28 Comment 03/04/20 23:56 Intake & Output 03/04/20 03/04/20 03/05/20 11:59 23:59 11:59 Intake Total 2078.749 / 3737.499 1658.75 / 3737.499 1573.75 / 1573.75 Output Total 500 / 2550 2050 / 2550 1100 / 1100 Balance 1578.749 / 1187.499 -391.25 / 1187.499 473.75 / 473.75 Intake: IV 2078.749 / 2877.499 798.75 / 2877.499 1093.75 / 1093.75 Oral 860 / 860 480 / 480 Output: Urine 500 / 2550 2050 / 2550 1100 / 1100 Other: Urine Color Yellow Light Trisha Yellow Brown Urine Appearance Clear Clear Cloudy Urine Odor Normal Normal Normal Comment pt up to bathroom voiding independently Stool Size Moderate Stool Characteristics Formed Brown Voiding Methods Toilet Urinal Toilet Urinal Data Completed and Pending Labs on day of discharge: Labs from last 24 hours 03/05/20 03/05/20 03/05/20 12:00 06:07 06:07 WBC 4.31 L D RBC 3.49 L Hgb 11.2 L Hct 34.0 L MCV 97.4 H D MCH 32.1 MCHC 32.9 RDW 14.1 Plt Count 331 MPV 9.8 Immature Gran % 0.5 Neutrophils % 61.5 Lymphocytes % 24.1 Monocytes % 10.0 Eosinophils % 3.0 Basophils % 0.9 Nucleated RBC % 0 Absolute Neutrophils 2.65 Absolute Lymphocytes 1.04 L Absolute Monocytes 0.43 Absolute Eosinophils 0.13 Absolute Basophils 0.04 Sodium 136 Potassium Pending 3.3 L Chloride 105 Carbon Dioxide 23.9 Anion Gap 7.1 BUN 3 L Creatinine 0.50 L Estimated GFR/1.73 m2 >= 60.00 Glucose 104 Calcium 7.9 L Total Bilirubin 0.4 AST 15 ALT 12 L Alkaline Phosphatase 101 Total Protein 5.9 L Albumin 2.0 L Lipase 41 Vitamin B12 03/04/20 06:30 WBC RBC Hgb Hct MCV MCH MCHC RDW Plt Count MPV Immature Gran % Neutrophils % Lymphocytes % Monocytes % Eosinophils % Basophils % Nucleated RBC % Absolute Neutrophils Absolute Lymphocytes Absolute Monocytes Absolute Eosinophils Absolute Basophils Sodium Potassium Chloride Carbon Dioxide Anion Gap BUN Creatinine Estimated GFR/1.73 m2 Glucose Calcium Total Bilirubin AST ALT Alkaline Phosphatase Total Protein Albumin Lipase Vitamin B12 502 [facility] Medical History (Updated 03/06/20 @ 08:44 by Elias Espino) Alcohol withdrawal ARDS (adult respiratory distress syndrome) Aspiration pneumonia HTN (hypertension) Hx of hyperlipidemia Myocardial infarction x 2 Pancreatitis Pancreatitis, chronic Presence of pancreatic duct stent (~01/2018) Sean Sears Surgical History S/P ERCP (~01/2018) Sean Sears Family History Mother Alcohol abuse Father Alcohol abuse Social History Smoking/Tobacco Use Status: Current every day Tobacco Type: cigarettes Smoking packs per day: 1 Smoking cigarettes per day: 20.0 Smoking risk assessment performed?: Yes Alcohol Intake: current Alcohol Intake frequency: 3 or more drinks per day Alcohol type: beer Drug use: Never Details: no IV drug use Housing: apartment Do you feel safe at home: Yes Do you feel safe in your relationship?: Yes
--- NOTE | 2020-03-05 11:25 | CMDISCH_ITS ---
LACE Index Scoring Tool - Questions: Length of Stay (in days): 2 Acuity (Admit via E.D.?): Yes Comorbidities: Previous M.I., Liver or Renal Disease E.D. Visits: 13 - Answers: Total Score: 14 Risk of Readmission: High Risk Care Management Discharge Reason for Hospitalization: Acute on chronic pancreatitis. Discharge Plan: Juan Jose sindy [place]. Juan Jose will be discharged home when medically cleared by provider. He will follow up with his PCP and discharge plan of care as directed, as well as his debt recovery officer; Katt. Transport home will be via private vehicle with family. Patient/Family Education Needs: Review discharge instructions, discuss Ask Me Three. Juan Jose sindy [place].
--- NOTE | 2020-04-01 12:58 | CMPROGNOTE_ITS ---
Care Management Progress Note MARY ANN called Juan Jose to remind of appointment at [facility] on 04/04/20@1430, GHASSAN left at 1110.
--- NOTE | 2020-04-01 12:58 | PDOC.CMPRO ---
Care Management Progress Note MARY ANN called Juan Jose to remind of appointment at [facility] on 04/04/20@1430, GHASSAN left at 1110.
== END 2020-03-05 10:48 | disposition left against medical advice (07) | DRG 439 ==
LOC: ER 03-03 00:49 → MS 03-03 01:32
PROVIDERS: Internal Medicine; Admitting Provider Family Medicine; Emergency Provider Registered Nurse Emergency; PCP Student in an Organized Health Care Education/Training Program; Visit Provider Family Medicine
DX: K85.20 Alcohol induced acute pancreatitis without necrosis or infection (principal); I82.721 Chronic embolism and thrombosis of deep veins of right upper extremity; K86.0 Alcohol-induced chronic pancreatitis; F10.20 Alcohol dependence, uncomplicated; I10 Essential (primary) hypertension; E78.5 Hyperlipidemia, unspecified; I25.2 Old myocardial infarction; F17.210 Nicotine dependence, cigarettes, uncomplicated; Z79.01 Long term (current) use of anticoagulants; K59.00 Constipation, unspecified
CPT/HCPCS: 36415; 74177; 80053; 83690; 84145; 93005; 96361; 96374; 96375; 96376; 99222; 99233; 99285; 99356; NC; U0003; 71260; 80320; 81003; 82607; 83605; 83735; 84132; 84484; 85025; 86140; 93010; J2270; J2405; J3490

== ENCOUNTER 2020-04-17 18:26 | Observation (INO) | payer MEDICAID, SELFPAY ==
[2020-04-17] VITALS (44 sets, daily range): BP systolic 85–157; BP diastolic 58–97; PULSE 98–127; RESP 9–37; TEMP 36.1–36.6; O2SAT 93–100
--- NOTE | 2020-04-17 18:15 | RT.EKG_ITS ---
APPROVED REPORT Exam: Resting ECG Patient Location: E HR:121 bpm ECG Measurements Heart Rate 121 AXIS IL 140 P 69 QRSd 85 QRS -26 QT 327 T 119 QTc 464 Conclusion Sinus tachycardia...rate> 99 Low voltage, extremity leads...all extremity leads <0.5mV Consider inferior infarct...Q >35mS in II III aVF I have reviewed and interpreted ECG and agree with software generated interpretation.
--- NOTE | 2020-04-17 18:32 | ED.GENADUL_ITS ---
Discharge Plan Disposition Patient Disposition: [facility] INPATIENT Condition: Fair Discharge Details Clinical Impression: Abdominal pain, Vomiting, Retention of urine, Acute UTI, Alcoholism /alcohol abuse Primary Care Provider: Gregoria Perez ED Provider: Jose Luis Zhong [place] Meds and New Rx's Prescriptions: No Action Eliquis 5 mg tablet 5 mg PO BID Qty: 60 RF: 0 folic acid 1 mg tablet 1 mg PO DAILY Qty: 30 RF: 0 guaifenesin [Mucinex] 600 mg tablet extended release 12hr 600 mg PO BID PRN (Reason: cough) Qty: 20 RF: 0 Creon 12,000-38,000 -60,000 unit capsule,delayed release(DR/EC) 1 cap PO AC & HS Qty: 120 RF: 0 multivitamin Tablet 1 tab PO DAILY Qty: 30 RF: 0 thiamine HCl (vitamin B1) 100 mg tablet 100 mg PO DAILY Qty: 30 RF: 0 tamsulosin 0.4 mg Capsule 0.8 mg PO DAILY Qty: 30 RF: 0 Medical Decision Making <Emi Diane DO - Last Filed: 04/17/20 20:06> 59-year-old male with a history of chronic alcohol abuse and pancreatitis presents for abdominal pain, vomiting and diarrhea for the past 2 days. Patient appears intoxicated. Patient states he thought he was at home. Heart rate 120s. He is afebrile. He is answering questions and moving all extremities. His abdomen is soft and tender in the left upper quadrant. EKG notes a rate of 121, sinus, no STEMI, nondiagnostic. Differential diagnosis includes acute versus chronic pancreatitis, colitis, gastroenteritis, UTI, pyelonephritis. Will place an IV, bolus IV fluids, Zofran, screening labs, CT abdomen and pelvis. Although patient appears intoxicated and suspect his confusion is due to intoxication, will obtain a CT head to rule out any other acute process due to his confusion. Labs reviewed. Normal white blood cell count. Potassium 3.1, will replete. Troponin negative. Magnesium normal. Lipase normal. Alcohol level 358. CT head negative for acute findings. CT abdomen and pelvis notes gastroenteritis, marked CBD dilatation and marked bladder wall distention. We will plan to treat for gastroenteritis with GI cocktail, Protonix and IV fluids. Also notes findings of potential pneumonia but patient does not report any cough or shortness of breath, so we will hold on treatment for this at this time. Case endorsed to Dr. Zhong to follow-up on patient's response to medications and final disposition. Patient will need a ride home due to his significant alcohol intoxication. Medical Records Medical records reviewed: Yes I reviewed the patient's medical records. Lab Data Lab results reviewed: Yes I reviewed the patient's lab results. ECG Data Attestation: I personally reviewed and interpreted this ECG (s) as follows: Interpretation: Rate of 121, sinus, no acute ST elevation or depression. RI 140. QRS 85. QTc 464. <Jose Luis Zhong MD - Last Filed: 04/17/20 22:05> Patient signed out to me pending CT scan results. He is return with chronic changes on head CT. Abdominal CT shows some continued mild stranding at the pancreatic tail but new dilatation of the common bile duct. Lipase and LFTs are normal. Has very large bladder on CT. He did void here. Urinalysis/micro consistent with UTI. Bladder scan shows that he still has almost a liter of urine residual. Tripp catheter placed. Ceftriaxone ordered. He has been given Protonix and GI cocktail with continued complaints of pain. Do not think he has pancreatitis at this point. Probably does need ultrasound of the right upper quadrant because of the common bile duct dilatation. Suspect pain is more related to gastritis. Carafate given. Another liter of LR ordered for persistent tachycardia. Small dose of Dilaudid given. Case discussed with hospitalist for admission. Patient continues to request Dilaudid. Urine drug screen negative except for marijuana. Due to alcohol abuse, acetaminophen not indicated. Due to possi bility of gastritis as well as the fact that he is on Eliquis will avoid ketorolac. Do not want to keep dosing with opiates and will try low-dose ketamine infused over 15 minutes. Medical Records Medical records reviewed: Yes I reviewed the patient's medical records. Lab Data Lab results reviewed: Yes I reviewed the patient's lab results. HPI <Emi Diane DO - Last Filed: 04/17/20 20:06> General Mode of arrival: EMS . Date/Time Provider Initiated Documentation: 04/17/20 18:46 . Limitations to Documentation: altered mental status . Information obtained by: patient . HPI Narrative: Patient is a 59-year-old male with a history of chronic alcohol abuse and pancreatitis who presents with abdominal pain for the past 2 days. Patient states his abdominal pain is sharp and located on the left side. He also admits to vomiting and diarrhea. He states he drank 2 beers today. Patient denies any known fever, chest pain, shortness of breath, cough or urinary symptoms. Related Data Home Medications Medication Instructions Recorded Confirmed Creon 1 cap PO AC & HS #120 cap 01/28/20 04/17/20 Eliquis 5 mg PO BID #60 tab 01/28/20 04/17/20 folic acid 1 mg PO DAILY #30 tab 01/28/20 04/17/20 guaifenesin [Mucinex] 600 mg PO BID PRN #20 tab 01/28/20 04/17/20 multivitamin 1 tab PO DAILY #30 tab 01/28/20 04/17/20 thiamine HCl (vitamin B1) 100 mg PO DAILY #30 tab 01/28/20 04/17/20 tamsulosin 0.8 mg PO DAILY #30 cap 02/07/20 04/17/20 Previous Rx's Medication Instructions Recorded Creon 1 cap PO AC & HS #120 cap 01/28/20 Eliquis 5 mg PO BID #60 tab 01/28/20 folic acid 1 mg PO DAILY #30 tab 01/28/20 guaifenesin [Mucinex] 600 mg PO BID PRN #20 tab 01/28/20 multivitamin 1 tab PO DAILY #30 tab 01/28/20 thiamine HCl (vitamin B1) 100 mg PO DAILY #30 tab 01/28/20 tamsulosin 0.8 mg PO DAILY #30 cap 02/07/20 Allergies Allergy/AdvReac Type Severity Reaction Status Date / Time Penicillins Allergy Unverified 02/04/20 14:55 General DMITRI: 3 Review of Systems <Emi Diane DO - Last Filed: 04/17/20 20:06> All systems reviewed & are unremarkable except as noted in HPI and below Constitutional Constitutional: Reports as per HPI, Denies chills and Denies fever(s) Eyes Eyes: Denies blurry vision ENT Ears, Nose, Mouth, and Throat: Denies dizziness, Denies sore throat and Denies throat swelling Cardiovascular Cardiovascular: Denies chest pain and Denies dyspnea Respiratory Respiratory: Denies cough and Denies dyspnea Gastrointestinal Gastrointestinal: Reports abdominal pain, Reports diarrhea and Reports vomiting Genitourinary Genitourinary: Denies hematuria and Denies dysuria Musculoskeletal Musculoskeletal: Denies back pain and Denies numbness Integumentary/Breasts Skin/Breast: Denies lesions and Denies rash Neurologic Neurologic: Denies dizziness, Denies localized weakness and Denies numbness Allergic/Immunologic Allergic/Immunologic: Denies throat swelling PFSH <Emi Diane DO - Last Filed: 04/17/20 20:06> Medical History (Updated 04/17/20 @ 21:49 by Jose Luis Zhong MD) Alcohol withdrawal ARDS (adult respiratory distress syndrome) Aspiration pneumonia COVID-19 ruled out by laboratory testing HTN (hypertension) Hx of hyperlipidemia Myocardial infarction x 2 Pancreatitis Pancreatitis, chronic Presence of pancreatic duct stent (~01/2018) Sean Sears Surgical History S/P ERCP (~01/2018) Sean Sears Family History Mother Alcohol abuse Father Alcohol abuse Social History Smoking/Tobacco Use Status: Current every day Tobacco Type: cigarettes Smoking packs per day: 1 Smoking cigarettes per day: 20.0 Smoking risk assessment performed?: Yes Alcohol Intake: current Alcohol Intake frequency: 3 or more drinks per day Alcohol type: beer Drug use: Never Details: no IV drug use Housing: apartment Do you feel safe at home: Yes Do you feel safe in your relationship?: Yes Exam <Emi Diane DO - Last Filed: 04/17/20 20:06> Const General: cooperative, no acute distress and intoxicated appearing Orientation: alert, awake and oriented x3 HENMT Head: normal to inspection Face and sinus: normal facial exam Eyes General: appearance normal, both eyes and all related structures EOM: EOM intact bilaterally Neck Neck: normal visual inspection and No submandibular swelling Lymphatic: no lymphadenopathy noted Chest Chest: normal inspection of the chest and no tenderness Resp Effort & Inspection: normal respiratory effort and able to speak in complete sentences Auscultation: clear to auscultation bilaterally Cardio Rate: regular rate Rhythm: regular rhythm GI Inspection: normal to inspection Palpation: soft, not firm, not rigid and tender in the LLQ and in the LUQ Auscultation: hypoactive bowel sounds Skin General skin exam: no rashes or lesions noted Neuro General: patient alert, patient awake and patient oriented x3 Cognition: normal cognition Speech: speech normal Motor: muscle tone normal throughout Sensory Exam: no sensory deficits noted Extrem General: normal to inspection, full ROM, capillary refill normal, no calf tenderness bilaterally and no edema Psych Appearance: grossly normal Mental Status: mental status grossly normal Speech and Movement: speech and movement normal Affect: normal affect Sign Out <Emi Diane DO - Last Filed: 04/17/20 20:06> Sign Out Data: Sign Out Comment: Follow-up on response to meds and final disposition. Last updated by Emi Diane DO at 04/17/20 20:07
[2020-04-17] MEDS: Normal Saline Flush 10 ML SYR IVP ×2 (18:40→19:19)
[2020-04-17 18:52] LABS: Abs Immature Grans 0.01 10^3/uL (0.0-0.06); Absolute Basophil Count 0.05 10^3/uL (0.0-0.2); Absolute Eosinophil Count 0.02 10^3/uL (0.0-0.7); Absolute Lymphocyte Count 2.99 10^3/uL (1.2-3.4); Absolute Monocyte Count 0.63 10^3/uL (0.1-0.8); Absolute Neutrophil Count 2.34 10^3/uL (1.2-6.7); Basophils % 0.8; Eosinophils % 0.3; HCT 52.1 % (40.0-50.0); HGB 17.3 g/dL (13.5-17.5); Immature Grans % 0.2; Lymphocytes % 49.5; MCH 31.8 pg (27.0-33.0); MCHC 33.2 % (32.0-36.0); MCV 95.8 fL (80-95); Monocytes % 10.4; Neutrophils % 38.8; Nucleated RBC 0 %; Platelet Count 284 10^3/uL (130-400); RBC 5.44 10^6/uL (4.36-5.78); RDW 13.7 % (11.8-14.1); RDW-SD 48.6 fL; WBC 6.04 10^3/uL (4.4-10.8)
[2020-04-17 19:03] LABS: Prothrombin Time 10.5 sec (9.3-11.0)
[2020-04-17 19:11] LABS: Lipase 168 U/L (73-393)
[2020-04-17 19:12] LABS: ETHANOL BLOOD 358.4 mg/dL (<3)
[2020-04-17 19:13] LABS: ALT 25 U/L (16-63); AST 33 U/L (15-37); Albumin 3.7 g/dL (3.4-5.0); Alkaline Phosphatase 140 U/L (46-116); Anion Gap 11.6 mmol/L (3-11); BUN 3 mg/dL (7-18); Bilirubin, Total 0.3 mg/dL (0.2-1.0); CO2 25.4 mmol/L (21.0-32.0); CREATININE 0.8 mg/dL (0.70-1.30); Calcium 8.9 mg/dL (8.5-10.1); Chloride 103 mmol/L (98-107); Glucose 152 mg/dL (74-106); Magnesium 2.3 mg/dL (1.8-2.4); Potassium 3.1 mmol/L (3.5-5.1); Sodium 140 mmol/L (136-145); Total Protein 8.8 g/dL (6.4-8.2)
[2020-04-17 19:15] LABS: Troponin I < 0.05 ng/mL (<0.06)
[2020-04-17] MEDS: Normal Saline - Diluent 50 ML VIAL IV (19:19)
[2020-04-17] MEDS: Omnipaque 350 MG/ML 100 ML BTL IJ (19:20)
[2020-04-17] MEDS: Ondansetron 4 MG/2 ML VIAL IVP (19:20)
--- NOTE | 2020-04-17 19:23 | DI.CT_ITS ---
EXAM: CT HEAD WO CLINICAL HISTORY: altered mental status, r/o acute disease. TECHNIQUE: Imaging Protocol: Axial computed tomography images with coronal and sagittal reformatted images were created and reviewed COMPARISON: CT CT CHEST/ABD/PEL W from 03/02/2020 FINDINGS: There are no skull fractures nor fluid in the visualized paranasal sinuses. There is no evidence of intracranial hemorrhage, mass effect, or shift of midline structures. There are no extra-axial fluid collections. The ventricles are not enlarged or shifted and there is no blo od within the ventricular system nor within the basal cisterns. There is a white matter hypodense area consistent with encephalomalacia in left frontal lobe consiste nt with prior nonacute infarct. There is adjacent ex vacuo dilatation of the ventricle. No hemorrha ge. 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 No hemorrhage. If clinically indicated follow-up MRI can be performed RADIATION DOSE DELIVERED: Total DLP DATA REPOSITORY: All CT scans at this facility are submitted to the National Radiology Data Registry (NRDR) Dose Index Registry (DIR) with the [employer] (ACR). RADIATION OPTIMIZATION: All CT scans at this facility use at least one of these dose optimization te chniques: automated exposure control; mA and/or kV adjustment per patient size (includes targeted exa ms where dose is matched to clinical indication); or iterative reconstruction.
--- NOTE | 2020-04-17 19:23 | DI.CT_ITS ---
EXAM: CT ABDOMEN PELVIS W CLINICAL HISTORY: abdomiinal pain, r/o pancreatitis. TECHNIQUE: Imaging Protocol: Axial computed tomography images with coronal and sagittal reformatted images were created and reviewed CONTRAST MATERIAL: Intravenous: Omnipaque 100cc Oral: None COMPARISON: CT CT CHEST/ABD/PEL W from 03/02/2020 FINDINGS: VISUALIZED LUNG BASES: Increased lung base markings.. ABDOMEN: LIVER: There are no obvious focal hepatic lesions evident . GALLBLADDER/BILIARY: Gallbladder is slightly distended. Motion artifact limits interpretation. PANCREAS: Again noted are multiple parenchymal calcifications in the pancreas, the largest being in t he pancreatic head and there is dilatation of the pancreatic duct throughout its length again noted. There has been improvement in the appearance of the acute pancreatitis which was evident at 19:21. The amount of fluid in the lesser sac has significantly decreased, this area now appearing normal. P reviously affected posterior wall this stomach appears significantly improved. There is a mild amoun t of fluid around the pancreatic tail remaining but no formed pseudocyst. There is no obvious distin ct mass in the pancreas. SPLEEN: Spleen is not enlarged. No obvious intrasplenic lesions. Splenic and portal veins are paten t. ADRENALS: There are no significant adrenal masses. KIDNEYS:No cysts evident. No solid renal masses. No calculi nor hydronephrosis.. ABDOMINAL AORTA: Atherosclerotic and calcified but not enlarged LYMPH NODES:There is no retroperitineal nor paraaortic adenopathy. ABDOMINAL WALL/GI: No evidence of significant anterior abdominal wall hernia. No bowel obstruction. PELVIS: GI: No evidence of appendicitis.No evidence of sigmoid diverticulitis. LYMPH NODES: There is no intrapelvic nor inguinal adenopathy. REPRODUCTIVE: Prostate size upper normal URINARY BLADDER: Bladder is grossly distended OSSEOUS: No significant osseous lesions. IMPRESSION: 1. Compared to the prior CT scan of 03/02/2020 there has been significant improvement in the appearan ce of the acute pancreatitis, as described above. Multiple parenchymal calcifications are again note d in the pancreas, the largest being at the level of the head and there is dilatation of the pancreat ic duct proximal to this level again noted. No significant pseudocyst evident. There is no thrombos is of the adjacent splenic vein. No portal vein thrombosis. 2. The urinary bladder is grossly distended. Prostate size is upper normal-slightly prominent. 3. 4. RADIATION DOSE DELIVERED: Total DLP DATA REPOSITORY: All CT scans at this facility are submitted to the National Radiology Data Registry (NRDR) Dose Index Registry (DIR) with the [employer] (ACR). RADIATION OPTIMIZATION: All CT scans at this facility use at least one of these dose optimization te chniques: automated exposure control; mA and/or kV adjustment per patient size (includes targeted exa ms where dose is matched to clinical indication); or iterative reconstruction.
[2020-04-17] MEDS: Potassium Chloride 20 MEQ TABCR 40 MEQ PO (19:47)
[2020-04-17] MEDS: Normal Saline 1,000 ML 1000 ML IV (19:47)
--- NOTE | 2020-04-17 19:57 | DI.VRAD_ITS ---
PROCEDURE INFORMATION: Exam: CT Head Without Contrast Exam date and time: 04/17/2020 19:07 Age: 59 years old Clinical indication: Altered mental status/memory loss TECHNIQUE: Imaging protocol: Computed tomography of the head without contrast. Radiation optimization: All CT scans at this facility use at least one of these dose optimization techniques: automated exposure control; mA and/or kV adjustment per patient size (includes targeted exams where dose is matched to clinical indication); or iterative reconstruction. COMPARISON: CT HEAD CERVICAL SPINE WO 04/28/2019 18:34 FINDINGS: Brain: Left frontal encephalomalacia. Chronic left deep white matter infarct. Moderate cerebral atrophy. Additional small chronic left parietal white matter infarct. Moderate periventricular white matter hypodensity. No edema or hemorrhage. Cerebral ventricles: Ex vacuo dilation of the ventricular system. Bones/joints: No acute fracture. A chronic appearing deformity is suggested in the anterior left maxillary sinus, partially seen. Paranasal sinuses: No acute sinusitis. Mastoid air cells: No mastoid effusion. Vasculature: Atherosclerosis. Soft tissues: No suspicious lesions. IMPRESSION: No acute intracranial findings. Chronic pathology as described above. Dictated and Authenticated by: Evelyn Up MD. Ordering:KIMBERLY Middleton MD
--- NOTE | 2020-04-17 20:01 | DI.VRAD_ITS ---
PROCEDURE INFORMATION: Exam: CT Abdomen And Pelvis With Contrast Exam date and time: 04/17/2020 7:07 PM Age: 59 years old Clinical indication: Abdominal pain; Generalized TECHNIQUE: Imaging protocol: Computed tomography of the abdomen and pelvis with contrast. Total images: 1245 Radiation optimization: All CT scans at this facility use at least one of these dose optimization techniques: automated exposure control; mA and/or kV adjustment per patient size (includes targeted exams where dose is matched to clinical indication); or iterative reconstruction. Contrast material: [id number]; Contrast volume: 100 ml; Contrast route: INTRAVENOUS (IV); COMPARISON: CT CHEST/ABD/PEL W 03/02/2020 11:32 PM FINDINGS: Lungs: Bronchial wall thickening in the lung bases suggesting an element of bronchitis or bronchial edema. Mosaic alveolar attenuation in the right lower lobe may relate to bronchitis/bronchiolitis with intermixed air trapping and subsegmental atelectasis. Cannot exclude an element of pulmonary edema or pneumonia in the right base. Heart: Heart size normal. Mediastinal space: The visualized distal esophagus is normal. Liver: Normal contour. No mass lesions. No intrahepatic biliary ductal dilatation. Gallbladder and bile ducts: The gallbladder is moderately distended but otherwise unremarkable without gross wall thickening or adjacent stranding to suggest cholecystitis. Motion artifact limits its assessment mildly. Common bile duct slightly dilated at 7.5 mm diameter, increased in caliber from 03/02/2020, previously 4 mm diameter. No obstructive mass lesions or calcified duct stones. Clinical/laboratory correlation is recommended regarding any evidence of acute biliary obstruction. Consider MRCP or right upper quadrant ultrasound as clinically indicated. Pancreas: Pancreatic calcifications consistent with changes of chronic calcific pancreatitis. Chronic dilatation of the pancreatic duct measuring up to 8 mm diameter in the pancreatic neck, which is slightly decreased since 03/02/2020. The previous changes of pancreatitis around the pancreatic tail are significantly improved from 03/02/2020 although there is mild residual local peripancreatic and retroperitoneal stranding without residual fluid collection. Spleen: Normal. No splenomegaly. Adrenal glands: Normal. No adrenal mass. Kidneys and ureters: No acute abnormalities. No hydronephrosis or hydroureter. No urinary tract stones are identified. Stomach and bowel: Excessive fluid content in the mid and distal small bowel segments with equivocal slight increase in bowel wall enhancement. This is suspicious for mild gastroenteritis. No michelle bowel dilatation or transition point. No evidence of bowel obstruction, perforation, or abscess. Mild diverticulosis involving the distal colon without evidence of acute diverticulitis. Appendix: The appendix is normal in caliber and demonstrates no evidence of appendicitis. Intraperitoneal space: No free fluid or air. Vasculature: Moderate atherosclerotic aortoiliac calcification without aneurysm. Lymph nodes: No adenopathy. Urinary bladder: Distended urinary bladder measuring 19.3 by 9.9 by 14.2 cm, estimated volume 1400 mL. Consider bladder outlet obstruction related to prostatic hypertrophy. Reproductive: Mild prostate enlargement measuring 4.4 cm transverse. Bones/joints: No acute osseous abnormalities. Soft tissues: Unremarkable. IMPRESSION: 1. There are findings suggestive of gastroenteritis. No evidence of bowel obstruction, perforation, or abscess. 2. Marked bladder distension with estimated bladder volume 1400 mL. There is mild prostate enlargement, consider bladder outlet obstruction. 3. Bronchial wall thickening in the lung bases suggesting an element of bronchitis or bronchial edema with mosaic alveolar attenuation in the right lower lobe which is nonspecific and could relate to intermixed atelectasis and air trapping from bronchiolitis, versus patchy mild right basilar pneumonia or edema. 4. Mild dilatation of the common bile duct at 7.5 mm diameter, increased in caliber since 03/02/2020, previously 4 mm. Clinical/laboratory correlation recommended for evidence of biliary obstruction. Consider right upper quadrant ultrasound or MRCP assessment as clinically indicated. 5. The previous changes of pancreatitis in the pancreatic tail are moderately improved although there is mild residual local stranding in the region. The previous fluid collections have resolved. Chronic dilatation of the pancreatic duct is mildly improved as well. 6. Additional non-emergent findings detailed above. Dictated and Authenticated by: Tony Rodriguez MD. Ordering:KIMBERLY Middleton MD
[2020-04-17] MEDS: Pantoprazole 40 MG VIAL IVP (20:47)
[2020-04-17 20:48] LABS: Bilirubin Negative (Negative); Blood Negative (Negative); Clarity Sl Cloudy (Clear); Glucose Negative (Negative); Ketones Negative (Negative); Leukocyte Esterase Small (Negative); Nitrite Negative (Negative); Urobilinogen 0.2 EU/dL (Up TO 0.2); pH 6.5 (5-8)
[2020-04-17 20:58] LABS: WBC >50 HPF (0-5)
[2020-04-17 20:59] LABS: Bacteria Moderate HPF (Negative); C & S Indicated? Yes; Casts Negative LPF (Negative); Crystals Negative HPF (Negative); Epithelial Cells Rare HPF (Negative); Mucus Negative (Negative)
[2020-04-17] MEDS: HYDROmorphone 2 MG/ML VIAL 0.5 MG IVP (21:12)
[2020-04-17] MEDS: Lactated Ringers 1,000 ML 1000 ML IV (21:13)
[2020-04-17] MEDS: Sucralfate 1 GM TAB PO (21:13)
[2020-04-17 21:30] LABS: *AMPHETAMINES SCREEN URINE Negative (Negative); *BARBITURATES SCREEN URINE Negative (Negative); *BENZODIAZEPINES SCREEN URINE Negative (Negative); Cannabinoids THC POSITIVE (Negative); Cocaine Screen,Urine Negative (Negative); METHADONE URINE SCREEN Negative (Negative); OPIATES URINE SCREEN Negative (Negative)
[2020-04-17] MEDS: cefTRIAXone 1 GM/50 ML BAG IVPB (21:32)
[2020-04-17 21:39] LABS: Tricyclic Antidepressants Negative (Negative)
[2020-04-17] MEDS: Ketamine 50 MG/5 ML SYRINGE 20 MG IV (22:04)
[2020-04-17 22:09] LABS: Source Nasal/Nares
[2020-04-17] MEDS: Normal Saline 100 ML (22:29)
--- NOTE | 2020-04-17 23:30 | W.PM.HP.N ---
Date of service: 04/17/20 Time of Service: 23:30 Assessment and Plan Assessment and plan (1) Acute UTI: Status: Acute Assessment and plan: Continue Rocephin 1 g IV every 24 hours. Continue with Tripp placement. Consult with urology in the morning. Obtain renal ultrasound the morning. (2) Retention of urine: Status: Acute Assessment and plan: Tripp catheter placement and urology consult as noted above. (3) Alcoholic gastritis: Status: Suspected Assessment and plan: IV Protonix oral Carafate. Refrain from alcohol. Monitor CBC. Give antiemetics. Narcotics not clinically indicated. Qualifiers: Chronicity: chronic Gastritis bleeding: presence of bleeding unspecified Qualified Code(s): K29.20 - Alcoholic gastritis without bleeding (4) Common bile duct dilation: Status: Acute Assessment and plan: Unclear whether this is chronic or acute. Apparently his common bile duct previously measured 4 mm on a study from March 02, 2020. No obstructive mass lesions or calcified stones were seen on current CT scan. We will proceed with abdominal ultrasound and MRCP in the morning. Lipase is within normal limits. Previously seen peripancreatic inflammation and fluid appear to have resolved. (5) Alcoholism /alcohol abuse: Status: Chronic Assessment and plan: Continue multivitamin, folate, thiamine supplementation. Monitor with CIWA scoring and treat as appropriate with benzodiazepines. History of Present Illness History of Present Illness Chief Complaint: Abdominal pain nausea and vomiting Narrative: 59-year-old male with past medical history of chronic pancreatitis, chronic alcohol abuse, right upper extremity DVT chronically anticoagulated with apixaban, pneumonia with ARDS presents emergency department this evening nausea and vomiting and diarrhea for the past 2 days. He states he had had hematemesis and melanotic stools. Patient admits to drinking 2-3 tall boy beers per day. He also states has been having difficulty voiding and voiding small stream and says that the other day he had chills and fever. On arrival to emergency department he was tachycardic but not hypotensive and not febrile. He appeared to be intoxicated with a smell of alcohol on his breath and a blood alcohol level of 358 mg/dL. Urine drug screen was positive for THC but otherwise was negative. CBC demonstrated hemoconcentration with hemoglobin of 17 g, hematocrit 52% with an elevated MCV of 95 and a normal white count of 6000. Urinalysis was suspicious for UTI with cloudy urine with small amount leukocyte esterase and greater than 50 white cells per high-powered field rare epithelial cells and moderate bacteria. CMP showed a low potassium of 3.1 with elevated anion gap of 11.6 with normal BUN and creatinine of 3 and 0.8 and normal total bilirubin and LFTs and a normal lipase of 168. CT of the chest abdomen and pelvis with contrast showed no bowel obstruction or perforation or abscess but suggestive of gastroenteritis with excess fluid content the mid and distal small bowel segments with equivocal increase of bowel wall enhancement. Diverticulosis without evidence for diverticulitis was seen. He had marked bladder distention with estimated bladder volume of 1400 mL of mild prostatic enlargement. CT of the chest showed bronchial wall thickening in the lung bases with an element of bronchitis or bronchial edema with mosaic alveolar attenuation right lower lobe that was nonspecific and mild dilatation of common bile duct at 7.5 mm in diameter increased in caliber since prior study from March 02, 2020. Previously seen changes of pancreatitis in the pancreatic tail were moderately improved since prior exam. Previously seen fluid collection is resolved. There is chronic dilatation of his pancreatic duct. The emergency department staff placed Tripp catheter because of a post void bladder residual of over 900 mL. Patient was started on Rocephin for an apparent UTI probably caused by bladder outlet obstruction. While the patient specifically came to the ER thinking that he had pancreatitis there is no definite evidence of pancreatitis either by laboratory studies or CT findings. However the common bile duct dilatation cannot be fully explained. Therefore a follow-up right upper quadrant ultrasound be obtained in the morning as well as MRCP. His abdominal pain along with his symptoms of hematemesis and melena are suggestive of an alcoholic gastritis and/or gastroenteritis. Patient was given IV Protonix along with Carafate and a GI cocktail in the emergency department. However because of continued pain he was also given ketamine in the ER and subsequently given Dilaudid. However the patient does not require narcotic analgesics. Patient be monitored on [facility] protocol tonight watching for signs of acute alcohol withdrawal. Because of his chronic use of Eliquis he is not a candidate for phenobarbital treatment. If he requires medication for alcohol withdrawal he will be given scheduled doses of benzodiazepines. We will request a urology consult to evaluate his bladder outlet obstruction in the morning. I have also ordered a renal ultrasound. Review of Systems All systems reviewed & are unremarkable except as noted in HPI and below [facility] Medical History Alcohol withdrawal ARDS (adult respiratory distress syndrome) Aspiration pneumonia COVID-19 ruled out by laboratory testing HTN (hypertension) Hx of hyperlipidemia Myocardial infarction x 2 Pancreatitis Pancreatitis, chronic Presence of pancreatic duct stent (~01/2018) Sean Sears Surgical History S/P ERCP (~01/2018) Sean Sears Family History Mother Alcohol abuse Father Alcohol abuse Social History Smoking/Tobacco Use Status: Current every day Tobacco Type: cigarettes Smoking packs per day: 1 Smoking cigarettes per day: 20.0 Smoking risk assessment performed?: Yes Alcohol Intake: current Alcohol Intake frequency: 3 or more drinks per day Alcohol type: beer Drug use: Never Details: no IV drug use Housing: apartment Do you feel safe at home: Yes Do you feel safe in your relationship?: Yes Meds Home Medications and Allergies Home Medications Medication Instructions Recorded Confirmed Type Creon 1 cap PO AC & HS #120 cap 01/28/20 04/17/20 Rx Eliquis 5 mg PO BID #60 tab 01/28/20 04/17/20 Rx folic acid 1 mg PO DAILY #30 tab 01/28/20 04/17/20 Rx guaifenesin [Mucinex] 600 mg PO BID PRN #20 tab 01/28/20 04/17/20 Rx multivitamin 1 tab PO DAILY #30 tab 01/28/20 04/17/20 Rx thiamine HCl (vitamin B1) 100 mg PO DAILY #30 tab 01/28/20 04/17/20 Rx tamsulosin 0.8 mg PO DAILY #30 cap 02/07/20 04/17/20 Rx Allergies Allergy/AdvReac Type Severity Reaction Status Date / Time Penicillins Allergy Unverified 02/04/20 14:55 Exam Narrative Exam Narrative: Disheveled appearing tattooed male has a smell of alcohol on his breath. Neck supple no JVD Lungs clear to auscultation Heart is regular and slightly tachycardic Abdomen soft with active bowel sounds mild epigastric tenderness no guarding no palpable masses no bruits Extremities without peripheral cyanosis or edema. Skin is nondiaphoretic. No tremors. Results Labs Result diagrams: 04/17/20 18:40 04/17/20 18:40 Labs: Laboratory Results - last 24 hr 04/17/20 04/17/20 04/17/20 18:40 18:40 18:40 WBC 6.04 RBC 5.44 Hgb 17.3 Hct 52.1 H MCV 95.8 H MCH 31.8 MCHC 33.2 RDW 13.7 Plt Count 284 MPV 9.0 Immature Gran % 0.2 Neutrophils % 38.8 Lymphocytes % 49.5 Monocytes % 10.4 Eosinophils % 0.3 Basophils % 0.8 Nucleated RBC % 0 Absolute Neutrophils 2.34 Absolute Lymphocytes 2.99 Absolute Monocytes 0.63 Absolute Eosinophils 0.02 Absolute Basophils 0.05 PT INR APTT Sodium 140 Potassium 3.1 L Chloride 103 Carbon Dioxide 25.4 Anion Gap 11.6 H BUN 3 L Creatinine 0.8 Estimated GFR/1.73 m2 >= 60.00 Glucose 152 H Calcium 8.9 Magnesium 2.3 Total Bilirubin 0.3 AST 33 ALT 25 Alkaline Phosphatase 140 H Troponin I < 0.05 Total Protein 8.8 H Albumin 3.7 Lipase 168 Urine Color Urine Clarity Urine pH Ur Specific [place] Urine Protein Urine Ketones Urine Blood Urine Nitrite Urine Bilirubin Urine Urobilinogen Ur Leukocyte Esterase Urine RBC Urine WBC Ur Epithelial Cells Urine Crystals Urine Bacteria Urine Casts Urine Mucus Ur Culture Indicated? Urine Glucose Urine Opiates Screen Urine Methadone Screen Ur Barbiturates Screen Ur Tricyclics Screen Ur Amphetamines Screen U Benzodiazepines Scrn Urine Cocaine Screen Ur THC Screen Ethyl Alcohol 358.4 COVID-19 Source 04/17/20 04/17/20 04/17/20 18:40 20:40 20:40 WBC RBC Hgb Hct MCV MCH MCHC RDW Plt Count MPV Immature Gran % Neutrophils % Lymphocytes % Monocytes % Eosinophils % Basophils % Nucleated RBC % Absolute Neutrophils Absolute Lymphocytes Absolute Monocytes Absolute Eosinophils Absolute Basophils PT 10.5 INR 1.0 APTT 25.0 Sodium Potassium Chloride Carbon Dioxide Anion Gap BUN Creatinine Estimated GFR/1.73 m2 Glucose Calcium Magnesium Total Bilirubin AST ALT Alkaline Phosphatase Troponin I Total Protein Albumin Lipase Urine Color Yellow Urine Clarity Sl cloudy Urine pH 6.5 Ur Specific [place] 1.010 Urine Protein Negative Urine Ketones Negative Urine Blood Negative Urine Nitrite Negative Urine Bilirubin Negative Urine Urobilinogen 0.2 Ur Leukocyte Esterase Small H Urine RBC 3-5 H Urine WBC >50 H Ur Epithelial Cells Rare Urine Crystals Negative Urine Bacteria Moderate Urine Casts Negative Urine Mucus Negative Ur Culture Indicated? Yes Urine Glucose Negative Urine Opiates Screen Negative Urine Methadone Screen Negative Ur Barbiturates Screen Negative Ur Tricyclics Screen Negative Ur Amphetamines Screen Negative U Benzodiazepines Scrn Negative Urine Cocaine Screen Negative Ur THC Screen Positive A Ethyl Alcohol COVID-19 Source 04/17/20 21:40 WBC RBC Hgb Hct MCV MCH MCHC RDW Plt Count MPV Immature Gran % Neutrophils % Lymphocytes % Monocytes % Eosinophils % Basophils % Nucleated RBC % Absolute Neutrophils Absolute Lymphocytes Absolute Monocytes Absolute Eosinophils Absolute Basophils PT INR APTT Sodium Potassium Chloride Carbon Dioxide Anion Gap BUN Creatinine Estimated GFR/1.73 m2 Glucose Calcium Magnesium Total Bilirubin AST ALT Alkaline Phosphatase Troponin I Total Protein Albumin Lipase Urine Color Urine Clarity Urine pH Ur Specific [place] Urine Protein Urine Ketones Urine Blood Urine Nitrite Urine Bilirubin Urine Urobilinogen Ur Leukocyte Esterase Urine RBC Urine WBC Ur Epithelial Cells Urine Crystals Urine Bacteria Urine Casts Urine Mucus Ur Culture Indicated? Urine Glucose Urine Opiates Screen Urine Methadone Screen Ur Barbiturates Screen Ur Tricyclics Screen Ur Amphetamines Screen U Benzodiazepines Scrn Urine Cocaine Screen Ur THC Screen Ethyl Alcohol COVID-19 Source Nasal/nares Last Vital Signs Temp 36.6 C 04/17/20 23:00 Pulse 114 H 04/17/20 23:03 Resp 28 H 04/17/20 23:00 BP 144/92 H 04/17/20 23:00 Pulse Ox 95 04/17/20 23:00 COVID-19 Screening Have you, or household traveled for leisure in last 14 days?: No Had IN PERSON contact w/suspected or confirmed C-19 person: No
[2020-04-18] VITALS (7 sets, daily range): BP systolic 149–163; BP diastolic 81–95; PULSE 83–93; RESP 18–20; TEMP 36.2–36.8; O2SAT 96–99
[2020-04-18] MEDS: Normal Saline Flush 10 ML SYR IVP ×9 (00:01→21:57)
[2020-04-18] MEDS: Tamsulosin 0.4 MG CAPCR PO (00:03)
[2020-04-18] MEDS: diazePAM 10 MG/2 ML SYR IVP (06:44)
--- NOTE | 2020-04-18 07:00 | DI.US_ITS ---
EXAM: US ABDOMEN RENAL CLINICAL HISTORY: biliary ductal dilatation; hx of pancreatitis TECHNIQUE: Ultrasound of complete upper abdomen performed using standard protocol. COMPARISON: No exams were available for comparison FINDINGS: There is no ascites evident. LIVER: There are no hepatic lesions evident nor obvious dilatation of intrahepatic ducts. GALLBLADDER/BILIARY: There are no gallstones. Mild sludge noted in the gallbladder fundus but no ech ogenic calculi. Gallbladder wall exhibits slight uniform thickening. The common hepatic duct isslightly prominent, measuring maximum 7-9mm PANCREAS: Pancreatic calcifications noted. No hypoechoic mass nor peripancreatic fluid collection an d on these images. SPLEEN: The spleen is not enlarged and there are no intrasplenic lesions evident. KIDNEYS:Kidneys exhibit normal size with no evidence of solid mass, calculus, nor hydronephrosis. No cortical cysts evident. ABDOMINAL AORTA: There is no evidence of abdominal aortic aneurysm. IVC: Normal diameter where visualized. Tripp catheter is noted in the urinary bladder. IMPRESSION: 1. Pancreatic calcifications. No obvious pancreatic mass nor peripancreatic fluid collection eviden t on these ultrasound images. 2. CBD diameter is slightly prominent. No obvious calculi evident therein. 3. Slight gallbladder wall thickening and sludge but no gallstones evident. DATA REPOSITORY:
[2020-04-18 07:01] LABS: Abs Immature Grans 0.01 10^3/uL (0.0-0.06); Absolute Basophil Count 0.04 10^3/uL (0.0-0.2); Absolute Eosinophil Count 0.06 10^3/uL (0.0-0.7); Absolute Lymphocyte Count 1.42 10^3/uL (1.2-3.4); Absolute Monocyte Count 0.38 10^3/uL (0.1-0.8); Absolute Neutrophil Count 1.49 10^3/uL (1.2-6.7); Basophils % 1.2; Eosinophils % 1.8; HCT 40.6 % (40.0-50.0); HGB 13.4 g/dL (13.5-17.5); Immature Grans % 0.3; Lymphocytes % 41.8; MCH 32.2 pg (27.0-33.0); MCV 97.6 fL (80-95); MPV 9.3 fL (8.0-11.0); Monocytes % 11.2; Neutrophils % 43.7; Nucleated RBC 0 %; Platelet Count 184 10^3/uL (130-400); RBC 4.16 10^6/uL (4.36-5.78); RDW 13.8 % (11.8-14.1); RDW-SD 50.4 fL
[2020-04-18 07:21] LABS: ALT 14 U/L (16-63); AST 21 U/L (15-37); Albumin 2.4 g/dL (3.4-5.0); Alkaline Phosphatase 92 U/L (46-116); Anion Gap 6.1 mmol/L (3-11); BUN 2 mg/dL (7-18); Bilirubin, Total 0.3 mg/dL (0.2-1.0); CO2 25.9 mmol/L (21.0-32.0); CREATININE 0.7 mg/dL (0.70-1.30); Calcium 7.8 mg/dL (8.5-10.1); Chloride 109 mmol/L (98-107); Glucose 103 mg/dL (74-106); Magnesium 1.6 mg/dL (1.8-2.4); Potassium 4.2 mmol/L (3.5-5.1); Sodium 141 mmol/L (136-145); Total Protein 5.8 g/dL (6.4-8.2)
--- NOTE | 2020-04-18 07:39 | PDOC.CMIN ---
- If Service Date Differs Date of service: 04/18/20 Time of Service: 07:41 Care Management Initial Assess REASON FOR HOSPITALIZATION:: UTI, Abdominal Pain PAST MEDICAL HISTORY/PAST SURGICAL HISTORY:: Medical History: HTN (hypertension), Hx of hyperlipidemia, Myocardial infarction x 2, Pancreatitis, chronic, and Presence of pancreatic duct stent (~01/2018) - Sean Sears Surgical History: S/P ERCP (~01/2018) - Sean Sears PREVIOUS FUNCTIONAL STATUS/SOCIAL/FAMILY SUPPORTS:: Juan Jose reports he lives in an apartment in [place] with his , [id number], and [id number]. He spends his free time playing music, watching television, and talking with family and friends. 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 CURRENT FUNCTIONAL STATUS:: Juan Jose was downstairs for an ultrasound when CM attempted to meet with him, CM will continue to attempt to connect with Juan Jose. ADVANCE DIRECTIVES:: None on file; Juan Jose states he has a form but has not completed it yet. Has patient been provided with info about the portal/API?: Yes Did the patient sign up for the portal?: No CODE STATUS:: Full Code INSURANCE COVERAGE / FINANCIAL ISSUES:: Medicaid. 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 He has no other home or community services and no medical equipment. PRIMARY CARE PHYSICIAN:: Gregoria Perez MD POTENTIAL DISCHARGE NEEDS:: Follow up appointment with PCP. PATIENT/FAMILY EDUCATION NEEDS:: Discharge instructions, limitations, follow up plan of care including Ask Me [employer] and self management. ANTICIPATED BARRIERS TO DISCHARGE:: None identified at this time. TRANSPORTATION:: Via RCT coordinated by CM vs private vehicle with family. PLAN:: Anticipate Juan Jose will be discharged home when medically cleared by provider. He will follow up with his PCP and discharge plan of care as directed. Transport home will be via private vehicle with family vs. RCT coordinated by CM. CM will continue to support Juan Jose and discharge planning needs.
[2020-04-18] MEDS: Pantoprazole 40 MG VIAL IVP ×2 (08:00→19:51)
[2020-04-18] MEDS: diazePAM 5 MG TAB PO (08:01)
[2020-04-18] MEDS: Acetaminophen 325 MG TAB PO ×2 (08:01→16:12)
--- NOTE | 2020-04-18 09:00 | DI.MRI_ITS ---
EXAM: MR ABDOMEN WO CLINICAL HISTORY: Common bile duct dilatation, pancreatic duct dilat TECHNIQUE: Multiplanar multisequence MRI was performed without IV contrast COMPARISON: MR MR ABDOMEN WO from 01/12/[address] CHEST PE ABD PELVIS W from 02/04/[address] CHEST/ABD/PEL W from 03/02/2020 CT scan 03/02/2020 FINDINGS: VISUALIZED LUNG BASES: No pleural effusions evident. There is no generalized ascites evident. LIVER: The liver exhibits signal dropout on out of phase imaging consistent with significant steatosi s. Liver size is minimally prominent. There is no obvious discrete mass in the liver. BILIARY: The gallbladder lumen is slightly distended. There are no obvious calculi within the bladde r lumen. There is dilatation of intrahepatic ducts and the CBD diameter is slightly prominent, measu ring 8 millimeters. On the axial images there appears to be a small signal focus within the lower CB D at the level of the pancreatic head, possibly a tiny calculus therein. This is best seen on the T2 axial images. PANCREAS: The pancreatic duct is significantly dilated throughout its length with a maximum diameter of 9 millimeters at the pancreatic neck level. There is also slight dilatation of multiple side bran ches in the pancreas body and tail. The uncinate process appears well-defined and there does not appear to be abnormal tissue encasing th e superior mesenteric vessels and duodenum nor evidence of regional lymphadenopathy nor para-aortic a denopathy. There is a small amount of fluid in the region of the splenic hilum-pancreatic tail but t his has decreased when compared to the CT scan of 03/02/2020 as has the amount of fluid in the lesser sac. SPLEEN: Spleen is not enlarged and there are no intrasplenic lesions. ADRENALS: There are no significant adrenal masses. KIDNEYS: No solid renal masses. No cysts. No hydronephrosis nor perinephric fluid. ABDOMINAL AORTA: Not enlarged and there is no significant para-aortic adenopathy. ANTERIOR ABDOMINAL WALL/GI: There is no evidence of significant anterior abdominal wall hernia in the field of view of this study.Is no evidence of obvious bowel obstruction. OSSEOUS: There are no lytic osseous lesions in the field of view of this study. IMPRESSION: 1. Compared to the most recent CT scan of 03/02/2020 the amount of inflammatory fluid around the panc reas appears to have decreased, as described above. There is no large pseudocyst and delineation of the pancreatic head and uncinate process appears improved. The pancreatic duct remains significantly dilated throughout its length, exhibiting maximum diameter 9 millimeters which is at the level of th e pancreatic neck, similar to prior CT scan. There is also mild dilatation of the biliary tree of ab ove the pancreas, including mild dilatation of intrahepatic ducts. On the axial T2 images there is a subtle suggestion of a tiny calculus in the lower CBD. However, this may be volume averaging artifa ct. There is a possibility that the large chunk of parenchymal calcification in the pancreatic head is at least partly causative for the dilatation of the CBD and pancreatic duct, given its strategic p osition in the pancreatic head. This calcification is better appreciated on CT than MRI. 2. Gallbladder is slightly distended but does not appear edematous. There is no pericholecystic flui d. 3. Hepatic steatosis evident. No discrete focal hepatic lesions. No splenomegaly. No hydronephrosi s. No pleural effusions. DATA REPOSITORY:
--- NOTE | 2020-04-18 09:48 | W.UROLOGYCON ---
Date of service: 04/18/20 Time of Service: 10:12 Assessment and Plan Assessment and plan (1) Retention of urine: Status: Acute Assessment and plan: Management will be very challenging as it does not seem that this gentleman will be very compliant after discharge. I am going to assume that he was not actually taking his tamsulosin as an outpatient, so I would suggest giving him a voiding trial after 3 days of the medication. I would then remove the catheter and give him a voiding trial. Luckily, he has no sign of upper tract disease, so the chance of him developing renal failure if he is noncompliant is quite low. Typically, our recommendations for these patients include intermittent catheterization and medical therapy. We could certainly offer him a urodynamic study as an outpatient if he wanted to consider surgical therapy instead of medical therapy. We generally do not recommend chronic indwelling catheter is in any patients, but I would certainly not recommend one in this gentleman as I am concerned that he would not keep his monthly appointments for catheter changes. History of Present Illness History of Present Illness Chief Complaint: Urinary retention Narrative: This is a 59-year-old gentleman who has a history of alcohol abuse and pancreatitis. He presented to our emergency room with complaints of abdominal pain. On evaluation, he was found to have a distended bladder and a urinalysis suspicious for a urinary tract infection. A Tripp catheter has been placed. He tells me his abdominal pain improved somewhat when the catheter was placed. A urine culture is still pending. I have been asked to see him for his retention. The patient tells me that prior to admission, he was still able to void but that his urine was slow. He tells me that he was never started on any medication for voiding, but according to his [facility] records, he was discharged from the hospital in January with a prescription for tamsulosin 0.8 mg daily. The patient does not recall this bit of medical history, so I am not sure that he was actually taking the medication at home. He denies any previous urologic surgery. He is not aware of any previous urinary tract infections although he did have positive urine cultures back in April and December of 2019. He tells me that his bowels work well. He does not believe that he needs the catheter in place right now. Review of Systems Narrative: No fevers or chills No vision change No diabetes or thyroid No shortness of breath, cough or hemoptysis No chest pain or palpitations No ulcers, jaundice No seizures, strokes No anemia No gout PFSH Medical History (Updated 04/18/20 @ 10:16 by Jaspreet Duvall MD) Alcohol withdrawal ARDS (adult respiratory distress syndrome) Aspiration pneumonia COVID-19 ruled out by laboratory testing HTN (hypertension) Hx of hyperlipidemia Myocardial infarction x 2 Pancreatitis Pancreatitis, chronic Presence of pancreatic duct stent (~01/2018) Sean Sears Surgical History S/P ERCP (~01/2018) Sean Sears Family History Mother Alcohol abuse Father Alcohol abuse Social History Smoking/Tobacco Use Status: Current every day Tobacco Type: cigarettes Smoking packs per day: 1 Smoking cigarettes per day: 20.0 Smoking risk assessment performed?: Yes Alcohol Intake: current Alcohol Intake frequency: 3 or more drinks per day Alcohol type: beer Drug use: Never Details: no IV drug use Housing: apartment Do you feel safe at home: Yes Do you feel safe in your relationship?: Yes Exam Narrative Exam Narrative: I was able to review multiple abdominal CT scan done at our institution over the past year. He appears to have multiple bladder diverticuli and varying degrees of bladder distention with each of his ER presentations. Remarkably, he has never been any sign of hydronephrosis on scan or renal compromise on the lab work. I was able to review his previous lab work and urine cultures. He had Aerococcus in his urine with his 1 previous positive urine culture. Const General: cooperative and no acute distress GI Inspection: non-distended Palpation: soft Other: urine clear in catheter Skin Other: multiple tattoos Results Last Vital Signs Temp 36.6 C 04/18/20 07:16 Pulse 84 04/18/20 07:20 Resp 20 04/18/20 07:16 BP 156/87 H 04/18/20 07:16 Pulse Ox 96 04/18/20 07:16 Labs Result diagrams: 04/18/20 06:20 04/18/20 06:20 Labs: Laboratory Results - last 24 hr 04/17/20 04/17/20 04/17/20 18:40 18:40 18:40 WBC 6.04 RBC 5.44 Hgb 17.3 Hct 52.1 H MCV 95.8 H MCH 31.8 MCHC 33.2 RDW 13.7 Plt Count 284 MPV 9.0 Immature Gran % 0.2 Neutrophils % 38.8 Lymphocytes % 49.5 Monocytes % 10.4 Eosinophils % 0.3 Basophils % 0.8 Nucleated RBC % 0 Absolute Neutrophils 2.34 Absolute Lymphocytes 2.99 Absolute Monocytes 0.63 Absolute Eosinophils 0.02 Absolute Basophils 0.05 PT INR APTT Sodium 140 Potassium 3.1 L Chloride 103 Carbon Dioxide 25.4 Anion Gap 11.6 H BUN 3 L Creatinine 0.8 Estimated GFR/1.73 m2 >= 60.00 Glucose 152 H Calcium 8.9 Magnesium 2.3 Total Bilirubin 0.3 AST 33 ALT 25 Alkaline Phosphatase 140 H Troponin I < 0.05 Total Protein 8.8 H Albumin 3.7 Lipase 168 Urine Color Urine Clarity Urine pH Ur Specific [place] Urine Protein Urine Ketones Urine Blood Urine Nitrite Urine Bilirubin Urine Urobilinogen Ur Leukocyte Esterase Urine RBC Urine WBC Ur Epithelial Cells Urine Crystals Urine Bacteria Urine Casts Urine Mucus Ur Culture Indicated? Urine Glucose Urine Opiates Screen Urine Methadone Screen Ur Barbiturates Screen Ur Tricyclics Screen Ur Amphetamines Screen U Benzodiazepines Scrn Urine Cocaine Screen Ur THC Screen Ethyl Alcohol 358.4 COVID-19 Source 04/17/20 04/17/20 04/17/20 18:40 20:40 20:40 WBC RBC Hgb Hct MCV MCH MCHC RDW Plt Count MPV Immature Gran % Neutrophils % Lymphocytes % Monocytes % Eosinophils % Basophils % Nucleated RBC % Absolute Neutrophils Absolute Lymphocytes Absolute Monocytes Absolute Eosinophils Absolute Basophils PT 10.5 INR 1.0 APTT 25.0 Sodium Potassium Chloride Carbon Dioxide Anion Gap BUN Creatinine Estimated GFR/1.73 m2 Glucose Calcium Magnesium Total Bilirubin AST ALT Alkaline Phosphatase Troponin I Total Protein Albumin Lipase Urine Color Yellow Urine Clarity Sl cloudy Urine pH 6.5 Ur Specific [place] 1.010 Urine Protein Negative Urine Ketones Negative Urine Blood Negative Urine Nitrite Negative Urine Bilirubin Negative Urine Urobilinogen 0.2 Ur Leukocyte Esterase Small H Urine RBC 3-5 H Urine WBC >50 H Ur Epithelial Cells Rare Urine Crystals Negative Urine Bacteria Moderate Urine Casts Negative Urine Mucus Negative Ur Culture Indicated? Yes Urine Glucose Negative Urine Opiates Screen Negative Urine Methadone Screen Negative Ur Barbiturates Screen Negative Ur Tricyclics Screen Negative Ur Amphetamines Screen Negative U Benzodiazepines Scrn Negative Urine Cocaine Screen Negative Ur THC Screen Positive A Ethyl Alcohol COVID-19 Source 04/17/20 04/18/20 04/18/20 21:40 06:20 06:20 WBC 3.40 L D RBC 4.16 L Hgb 13.4 L D Hct 40.6 D MCV 97.6 H MCH 32.2 MCHC 33.0 RDW 13.8 Plt Count 184 D MPV 9.3 Immature Gran % 0.3 Neutrophils % 43.7 Lymphocytes % 41.8 Monocytes % 11.2 Eosinophils % 1.8 Basophils % 1.2 Nucleated RBC % 0 Absolute Neutrophils 1.49 Absolute Lymphocytes 1.42 Absolute Monocytes 0.38 Absolute Eosinophils 0.06 Absolute Basophils 0.04 PT INR APTT Sodium 141 Potassium 4.2 D Chloride 109 H Carbon Dioxide 25.9 Anion Gap 6.1 BUN 2 L Creatinine 0.7 Estimated GFR/1.73 m2 >= 60.00 Glucose 103 Calcium 7.8 L Magnesium 1.6 L Total Bilirubin 0.3 AST 21 ALT 14 L Alkaline Phosphatase 92 Troponin I Total Protein 5.8 L Albumin 2.4 L Lipase Urine Color Urine Clarity Urine pH Ur Specific [place] Urine Protein Urine Ketones Urine Blood Urine Nitrite Urine Bilirubin Urine Urobilinogen Ur Leukocyte Esterase Urine RBC Urine WBC Ur Epithelial Cells Urine Crystals Urine Bacteria Urine Casts Urine Mucus Ur Culture Indicated? Urine Glucose Urine Opiates Screen Urine Methadone Screen Ur Barbiturates Screen Ur Tricyclics Screen Ur Amphetamines Screen U Benzodiazepines Scrn Urine Cocaine Screen Ur THC Screen Ethyl Alcohol COVID-19 Source Nasal/nares
--- NOTE | 2020-04-18 10:04 | W.PM.PROGNOT ---
Date of Service Date of service: 04/18/20 Time of Service: 10:05 Assessment and Plan Assessment and plan (1) Common bile duct dilation: Status: Acute Assessment and plan: MRCP performed; radiologist reading pending. Conjugated bilirubin is elevated; total bilirubin normal. Lipase normal. 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 PRN antiemetics. Qualifiers: Chronicity: chronic Gastritis bleeding: presence of bleeding unspecified Qualified Code(s): K29.20 - Alcoholic gastritis without bleeding (3) Acute UTI: Status: Acute Assessment and plan: Causing urinary retention or secondary to retention? On Rocephin. Cx pending. (4) Retention of urine: Status: Acute Assessment and plan: Has sharp catheter in place. Varying degrees of bladder distension on previous imaging. Urology consulted. Will d/c sharp. Voiding trial. (5) Alcoholism /alcohol abuse: Status: Chronic Assessment and plan: He presented with a positive Etoh level of 358. CIWA monitoring with prn serax. He has endorsed abstinence from Etoh intermittently. Last admission for pancreatitis; left AMA. 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 (6) Hypomagnesemia: Status: Acute Assessment and plan: Oral replacement. Monitor Subjective Subjective Patient reports: no new complaints, pain is less (epigastric pain.) and tolerating liquids well (He wishes to advance diet.); denies blood in stool, nausea, vomiting and shortness of breath Exam Const General: cooperative and no acute distress Nutritional Appearance: thin Orientation: alert and oriented x3 Eyes Sclera: sclerae normal Pupils: PERRL Resp Effort & Inspection: normal respiratory effort Auscultation: clear to auscultation bilaterally Cardio Rate: regular rate Rhythm: regular rhythm Heart Sounds: S1 normal and S2 normal Extrem General: no pedal edema and no calf tenderness Psych Appearance: grossly normal Speech and Movement: speech and movement normal Mood: congruent mood Affect: normal affect Objective Last Vital Signs Temp 36.6 C 04/18/20 07:16 Pulse 84 04/18/20 07:20 Resp 20 04/18/20 07:16 BP 156/87 H 04/18/20 07:16 Pulse Ox 96 04/18/20 07:16 Laboratory Results - last 24 hr 04/17/20 04/17/20 04/17/20 18:40 18:40 18:40 WBC 6.04 RBC 5.44 Hgb 17.3 Hct 52.1 H MCV 95.8 H MCH 31.8 MCHC 33.2 RDW 13.7 Plt Count 284 MPV 9.0 Immature Gran % 0.2 Neutrophils % 38.8 Lymphocytes % 49.5 Monocytes % 10.4 Eosinophils % 0.3 Basophils % 0.8 Nucleated RBC % 0 Absolute Neutrophils 2.34 Absolute Lymphocytes 2.99 Absolute Monocytes 0.63 Absolute Eosinophils 0.02 Absolute Basophils 0.05 PT INR APTT Sodium 140 Potassium 3.1 L Chloride 103 Carbon Dioxide 25.4 Anion Gap 11.6 H BUN 3 L Creatinine 0.8 Estimated GFR/1.73 m2 >= 60.00 Glucose 152 H Calcium 8.9 Magnesium 2.3 Total Bilirubin 0.3 AST 33 ALT 25 Alkaline Phosphatase 140 H Troponin I < 0.05 Total Protein 8.8 H Albumin 3.7 Lipase 168 Urine Color Urine Clarity Urine pH Ur Specific [place] Urine Protein Urine Ketones Urine Blood Urine Nitrite Urine Bilirubin Urine Urobilinogen Ur Leukocyte Esterase Urine RBC Urine WBC Ur Epithelial Cells Urine Crystals Urine Bacteria Urine Casts Urine Mucus Ur Culture Indicated? Urine Glucose Urine Opiates Screen Urine Methadone Screen Ur Barbiturates Screen Ur Tricyclics Screen Ur Amphetamines Screen U Benzodiazepines Scrn Urine Cocaine Screen Ur THC Screen Ethyl Alcohol 358.4 COVID-19 Source 04/17/20 04/17/20 04/17/20 18:40 20:40 20:40 WBC RBC Hgb Hct MCV MCH MCHC RDW Plt Count MPV Immature Gran % Neutrophils % Lymphocytes % Monocytes % Eosinophils % Basophils % Nucleated RBC % Absolute Neutrophils Absolute Lymphocytes Absolute Monocytes Absolute Eosinophils Absolute Basophils PT 10.5 INR 1.0 APTT 25.0 Sodium Potassium Chloride Carbon Dioxide Anion Gap BUN Creatinine Estimated GFR/1.73 m2 Glucose Calcium Magnesium Total Bilirubin AST ALT Alkaline Phosphatase Troponin I Total Protein Albumin Lipase Urine Color Yellow Urine Clarity Sl cloudy Urine pH 6.5 Ur Specific [place] 1.010 Urine Protein Negative Urine Ketones Negative Urine Blood Negative Urine Nitrite Negative Urine Bilirubin Negative Urine Urobilinogen 0.2 Ur Leukocyte Esterase Small H Urine RBC 3-5 H Urine WBC >50 H Ur Epithelial Cells Rare Urine Crystals Negative Urine Bacteria Moderate Urine Casts Negative Urine Mucus Negative Ur Culture Indicated? Yes Urine Glucose Negative Urine Opiates Screen Negative Urine Methadone Screen Negative Ur Barbiturates Screen Negative Ur Tricyclics Screen Negative Ur Amphetamines Screen Negative U Benzodiazepines Scrn Negative Urine Cocaine Screen Negative Ur THC Screen Positive A Ethyl Alcohol COVID-19 Source 04/17/20 04/18/20 04/18/20 21:40 06:20 06:20 WBC 3.40 L D RBC 4.16 L Hgb 13.4 L D Hct 40.6 D MCV 97.6 H MCH 32.2 MCHC 33.0 RDW 13.8 Plt Count 184 D MPV 9.3 Immature Gran % 0.3 Neutrophils % 43.7 Lymphocytes % 41.8 Monocytes % 11.2 Eosinophils % 1.8 Basophils % 1.2 Nucleated RBC % 0 Absolute Neutrophils 1.49 Absolute Lymphocytes 1.42 Absolute Monocytes 0.38 Absolute Eosinophils 0.06 Absolute Basophils 0.04 PT INR APTT Sodium 141 Potassium 4.2 D Chloride 109 H Carbon Dioxide 25.9 Anion Gap 6.1 BUN 2 L Creatinine 0.7 Estimated GFR/1.73 m2 >= 60.00 Glucose 103 Calcium 7.8 L Magnesium 1.6 L Total Bilirubin 0.3 AST 21 ALT 14 L Alkaline Phosphatase 92 Troponin I Total Protein 5.8 L Albumin 2.4 L Lipase Urine Color Urine Clarity Urine pH Ur Specific [place] Urine Protein Urine Ketones Urine Blood Urine Nitrite Urine Bilirubin Urine Urobilinogen Ur Leukocyte Esterase Urine RBC Urine WBC Ur Epithelial Cells Urine Crystals Urine Bacteria Urine Casts Urine Mucus Ur Culture Indicated? Urine Glucose Urine Opiates Screen Urine Methadone Screen Ur Barbiturates Screen Ur Tricyclics Screen Ur Amphetamines Screen U Benzodiazepines Scrn Urine Cocaine Screen Ur THC Screen Ethyl Alcohol COVID-19 Source Nasal/nares
--- NOTE | 2020-04-18 11:56 | PHA.REVIEW ---
Pharmacy Admission Review - Admission Clinical Review (Last Updated 04/18/20 @ 01:18 by Elias Espino) Hypomagnesemia (Acute) Common bile duct dilation (Acute) Retention of urine (Acute) Acute UTI (Acute) Penicillins Allergy (Unverified 02/04/20 14:55) Height 5 ft 7 in Weight 63.3 kg - Renal Dosing Renal Dosing: BUN 2 mg/dL (7-18) L 04/18/20 06:20 Creatinine 0.7 mg/dL (0.70-1.30) 04/18/20 06:20 Medications needing adjustments: Reviewed - Anticoagulation Anticoagulation: Hgb 13.4 g/dL (13.5-17.5) L D 04/18/20 06:20 Hct 40.6 % (40.0-50.0) D 04/18/20 06:20 Plt Count 184 10^3/uL (130-400) D 04/18/20 06:20 INR 1.0 (0.9-1.1) 04/17/20 18:40 Creatinine 0.7 mg/dL (0.70-1.30) 04/18/20 06:20 DVT Prohphylaxis: Reviewed Therapeutic Anticoagulation: Reviewed Medications: Apixaban - Opiate Usage Evaluate Pain Scale/Pains Meds: N/A - Relevant Labs Sodium 141 mmol/L (136-145) 04/18/20 06:20 Potassium 4.2 mmol/L (3.5-5.1) D 04/18/20 06:20 Chloride 109 mmol/L (98-107) H 04/18/20 06:20 Magnesium 1.6 mg/dL (1.8-2.4) L 04/18/20 06:20 Electrolytes, C-Reactive P, ESR: Reviewed (mag repleted orally) - DM Control DM Control: Glucose 103 mg/dL (74-106) 04/18/20 06:20 Insulin Dosing: N/A - Heart Failure/NV Heart Failure/NV: Troponin I < 0.05 ng/mL (<0.06) 04/17/20 18:40 EF%, EDWINA's, B-Blockers, Diuretics: Reviewed - BP Control BP Control: Blood Pressure 156/87 If elevated: Reviewed - Qtc Review If Elevated: Reviewed (QTc 464 on admission) - IV to PO Switch IV Medications: Reviewed - Home Meds Home Med List reviewed: Reviewed Relevent Home Meds Not ordered & why?: all ordered - Current meds Current Medication Order Review: Reviewed - Comments Comments/Follow Ups: IV protonix and oral carafate for gastritis; 1 gram ceftriaxone daily for UTI; Oxazepam and diazepam PRN alcohol withdrawal; scheduled mag started - monitor BMP, CIWA, urine culture
[2020-04-18] MEDS: HYDROmorphone 2 MG/ML VIAL 1 MG IVP ×2 (12:37)
[2020-04-18 15:09] LABS: COVID-19 PCR Negative (Negative)
[2020-04-18] MEDS: Thiamine 100 MG TAB PO (15:34)
[2020-04-18] MEDS: Sucralfate 1 GM TAB PO ×2 (15:34→21:58)
[2020-04-18] MEDS: Tamsulosin 0.4 MG CAPCR 0.8 MG PO (15:34)
[2020-04-18] MEDS: Folic Acid 1 MG TAB PO (15:35)
[2020-04-18] MEDS: HYDROmorphone 2 MG/ML VIAL 0.5 MG IVP (16:11)
[2020-04-18] MEDS: Apixaban 5 MG TAB PO (19:50)
[2020-04-18] MEDS: oxyCODONE 5 MG TAB PO (19:50)
[2020-04-18] MEDS: Magnesium Oxide 400 MG TAB PO (19:50)
[2020-04-18] MEDS: cefTRIAXone 1 GM/50 ML BAG IV (21:58)
[2020-04-19 03:26] VITALS: BP 147/82; PULSE 89; RESP 20; TEMP 36.8; O2SAT 97
[2020-04-19 07:04] LABS: Abs Immature Grans 0.02 10^3/uL (0.0-0.06); Absolute Basophil Count 0.03 10^3/uL (0.0-0.2); Absolute Eosinophil Count 0.11 10^3/uL (0.0-0.7); Absolute Lymphocyte Count 1.06 10^3/uL (1.2-3.4); Absolute Monocyte Count 0.35 10^3/uL (0.1-0.8); Basophils % 0.6; Eosinophils % 2.2; HCT 40.9 % (40.0-50.0); HGB 13.5 g/dL (13.5-17.5); Immature Grans % 0.4; Lymphocytes % 21.3; MCH 31.3 pg (27.0-33.0); MCV 94.7 fL (80-95); MPV 9.6 fL (8.0-11.0); Neutrophils % 68.5; Nucleated RBC 0 %; Platelet Count 155 10^3/uL (130-400); RBC 4.32 10^6/uL (4.36-5.78); RDW 13.3 % (11.8-14.1); RDW-SD 46.7 fL; WBC 4.97 10^3/uL (4.4-10.8)
[2020-04-19 07:12] LABS: Anion Gap 6.7 mmol/L (3-11); BUN 4 mg/dL (7-18); CO2 28.3 mmol/L (21.0-32.0); CREATININE 0.7 mg/dL (0.70-1.30); Calcium 8.1 mg/dL (8.5-10.1); Chloride 102 mmol/L (98-107); Glucose 98 mg/dL (74-106); Magnesium 1.7 mg/dL (1.8-2.4); Potassium 4.2 mmol/L (3.5-5.1); Sodium 137 mmol/L (136-145)
[2020-04-19 07:15] VITALS: BP 174/89; PULSE 80; RESP 18; TEMP 36.6; O2SAT 98
[2020-04-19] MEDS: Normal Saline Flush 10 ML SYR IVP (08:36)
[2020-04-19] MEDS: Sucralfate 1 GM TAB PO (08:36)
[2020-04-19] MEDS: Tamsulosin 0.4 MG CAPCR 0.8 MG PO (08:36)
[2020-04-19] MEDS: Pantoprazole 40 MG VIAL IVP (08:36)
[2020-04-19] MEDS: Thiamine 100 MG TAB PO (08:37)
[2020-04-19] MEDS: Apixaban 5 MG TAB PO (08:37)
[2020-04-19] MEDS: Magnesium Oxide 400 MG TAB PO (08:37)
[2020-04-19] MEDS: Multivitamin TAB 1 TAB PO (08:37)
[2020-04-19] MEDS: oxyCODONE 5 MG TAB PO (08:37)
[2020-04-19] MEDS: Acetaminophen 325 MG TAB PO (08:37)
[2020-04-19] MEDS: Folic Acid 1 MG TAB PO (08:38)
--- NOTE | 2020-04-19 10:11 | DSE_ITS ---
Date of service: 04/19/20 Time of Service: 08:08 DS: Diagnosis Discharge Diagnosis (1) Retention of urine: Status: Acute Discharge Plan Disposition Patient Disposition: HOME Condition: Fair Discharge Details Reason For Visit: UTI, ABDOMINAL PAIN Admit Date/Time: 04/17/20 21:35 Admit Provider: Elias Espino Attending Provider: Elias Espino Primary Care Provider: Gregoria Perez Hospital Course Hospital Course: 59-year-old male with past medical history of chronic pancreatitis, chronic alcohol abuse, right upper extremity DVT chronically anticoagulated with apixaban, pneumonia with ARDS presents emergency department this evening nausea and vomiting and diarrhea for the past 2 days. He stated he had hematemesis and melanotic stools. Patient admits to drinking 2-3 tall boy beers per day. He also stated he has been having difficulty voiding and voiding small stream and says that the other day he had chills and fever. On arrival to emergency department he was tachycardic but not hypotensive and not febrile. He appeared to be intoxicated with a smell of alcohol on his breath and a blood alcohol level of 358 mg/dL. Urine drug screen was positive for THC but otherwise was negative. CBC demonstrated hemoconcentration with hemoglobin of 17 g, hematocrit 52% with an elevated MCV of 95 and a normal white count of 6000. Urinalysis was suspicious for UTI with cloudy urine with small amount leukocyte esterase and greater than 50 white cells per high-powered field rare epithelial cells and moderate bacteria. CMP showed a low potassium of 3.1 with elevated anion gap of 11.6 with normal BUN and creatinine of 3 and 0.8 and normal total bilirubin and LFTs and a normal lipase of 168. CT of the chest abdomen and pelvis with contrast showed no bowel obstruction or perforation or abscess but suggestive of gastroenteritis with excess fluid content the mid and distal small bowel segments with equivocal increase of bowel wall enhancement. Diverticulosis without evidence for diverticulitis was seen. He had marked bladder distention with estimated bladder volume of 1400 mL of mild prostatic enlargement. CT of the chest showed bronchial wall thickening in the lung bases with an element of bronchitis or bronchial edema with mosaic alveolar attenuation right lower lobe that was nonspecific and mild dilatation of common bile duct at 7.5 mm in diameter increased in caliber since prior study from March 02, 2020. Previously seen changes of pancreatitis in the pancreatic tail were moderately improved since prior exam. Previously seen fluid collection is resolved. There is chronic dilatation of his pancreatic duct. The emergency department staff placed Tripp catheter because of a post void bladder residual of over 900 mL. Patient was started on Rocephin for an apparent UTI probably caused by bladder outlet obstruction. While the patient specifically came to the ER thinking that he had pancreatitis there is no definite evidence of pancreatitis either by laboratory studies or CT findings. However the common bile duct dilatation cannot be fully explained. His abdominal pain along with his symptoms of hematemesis and melena are suggestive of an alcoholic gastritis and/or gastroenteritis. Patient was given IV Protonix along with Carafate and a GI cocktail in the emergency department. However because of continued pain he was also given ketamine in the ER and subsequently given Dilaudid. However the patient does not require narcotic analgesics. Patient be monitored on CIWA protocol, watching for signs of acute alcohol withdrawal. Because of his chronic use of Eliquis he is not a candidate for phenobarbital treatment. If he requires medication for alcohol withdrawal he will be given scheduled doses of benzodiazepines. Urology consulted. Tripp left in place until day of D/C, then discontinued. If sxs of urinary retention continue he will f/u as outpt with Urology. His Hgb remained normal. MRCP results: 1. Compared to the most recent CT scan of 03/02/2020 the amount of inflammatory fluid around the pancreas appears to have decreased, as described above. There is no large pseudocyst and delineation of the pancreatic head and uncinate process appears improved. The pancreatic duct remains significantly dilated throughout its length, exhibiting maximum diameter 9 millimeters which is at the level of the pancreatic neck, similar to prior CT scan. There is also mild dilatation of the biliary tree of above the pancreas, including mild dilatation of intrahepatic ducts. On the axial T2 images there is a subtle suggestion of a tiny calculus in the lower CBD. However, this may be volume averaging artifact. There is a possibility that the large chunk of parenchymal calcification in the pancreatic head is at least partly causative for the dilatation of the CBD and pancreatic duct, given its strategic position in the pancreatic head. This calcification is better appreciated on CT than MRI. 2. Gallbladder is slightly distended but does not appear edematous. There is no pericholecystic fluid. 3. Hepatic steatosis evident. No discrete focal hepatic lesions. No splenomegaly. No hydronephrosis. No pleural effusions. Abdominal US showed: 1. Pancreatic calcifications. No obvious pancreatic mass nor peripancreatic fluid collection evident on these ultrasound images. 2. CBD diameter is slightly prominent. No obvious calculi evident therein. 3. Slight gallbladder wall thickening and sludge but no gallstones evident. He should discontinue alcohol use. Pepcid 40mg daily prescribed. 3 days of Keflex prescribed to finish a course of antibiotics for UTI. Follow up with PCP in 1-2 weeks. Home Meds and New Rx's Prescriptions: New famotidine [Pepcid] 40 mg tablet 40 mg PO DAILY Qty: 30 RF: 0 cephalexin 500 mg capsule 500 mg PO TID Qty: 9 RF: 0 Continued Eliquis 5 mg tablet 5 mg PO BID Qty: 60 RF: 0 folic acid 1 mg tablet 1 mg PO DAILY Qty: 30 RF: 0 guaifenesin [Mucinex] 600 mg tablet extended release 12hr 600 mg PO BID PRN (Reason: cough) Qty: 20 RF: 0 Creon 12,000-38,000 -60,000 unit capsule,delayed release(DR/EC) 1 cap PO AC & HS Qty: 120 RF: 0 multivitamin Tablet 1 tab PO DAILY Qty: 30 RF: 0 thiamine HCl (vitamin B1) 100 mg tablet 100 mg PO DAILY Qty: 30 RF: 0 tamsulosin 0.4 mg Capsule 0.8 mg PO DAILY Qty: 30 RF: 0 Discharge Instructions Instructions: Gastritis (DC) Stand Alone Forms: Nursing Discharge Form Activity:: Activity as Tolerated Equipment/Supplies:: No Equipment Needed Diet:: Heart Healthy Discharge Orders Discharge Orders: Discharge Order (Routine); Ordered 04/19/20 Ordered By: Jaspreet Duvall DS: Summary Time Spent with Patient providing and/or coordinating discharge services: Greater than 30 minutes Status at Discharge Functional status at discharge: independent ambulation Overall status at discharge: patient is back to baseline Mental Status: mental status grossly normal Speech and Movement: speech and movement normal Mood: congruent mood Affect: normal affect Exam Const General: cooperative and no acute distress Nutritional Appearance: average body habitus Orientation: alert, oriented to person and oriented to place Resp Effort & Inspection: normal respiratory effort Auscultation: clear to auscultation bilaterally Cardio Rate: regular rate Rhythm: regular rhythm Heart Sounds: S1 normal and S2 normal GI Palpation: soft and nontender Extrem General: no pedal edema and no calf tenderness Psych Mental Status: mental status grossly normal Speech and Movement: speech and movement normal Mood: congruent mood Affect: normal affect DS: Data Vitals/I&O Vitals and I&O: Vital Signs Temperature 36.6 C 04/19/20 07:15 Temperature Source Tympanic 04/19/20 07:15 Pulse 80 04/19/20 07:15 Pulse Rhythm Regular 04/18/20 23:30 Pulse 119 H 04/17/20 22:31 Respiratory Rate 18 04/19/20 07:15 Respiratory Effort 04/18/20 23:30 Respiratory Depth Normal 04/18/20 23:30 Respiratory Pattern Normal 04/18/20 23:30 Blood Pressure 174/89 H 04/19/20 07:15 Blood Pressure Mean 103 04/17/20 22:31 Pulse Oximetry 98 04/19/20 07:15 Oxygen Delivery Method Room Air 04/19/20 07:15 Oxygen Flow Rate 0 04/19/20 07:15 Pain Level 8 04/19/20 08:37 Intake & Output 04/18/20 04/18/20 04/19/20 11:59 23:59 11:59 Intake Total 1784 / 4084 2300 / 4084 1332.5 / 1332.5 Output Total 600 / 1275 675 / 1275 2200 / 2200 Balance 1184 / 2809 1625 / 2809 -867.5 / -867.5 Weight 63.3 kg 64.9 kg Intake: IV 1295 / 3115 1820 / 3115 932.5 / 932.5 Oral 489 / 969 480 / 969 400 / 400 Output: Urine 600 / 1275 675 / 1275 2200 / 2200 Other: Urine Color Light Trisha Pale Yellow Urine Appearance Clear Clear Clear Data Completed and Pending Labs on day of discharge: Labs from last 24 hours 04/19/20 04/19/20 04/17/20 06:10 06:10 21:40 WBC 4.97 D RBC 4.32 L Hgb 13.5 Hct 40.9 MCV 94.7 MCH 31.3 MCHC 33.0 RDW 13.3 Plt Count 155 MPV 9.6 Immature Gran % 0.4 Neutrophils % 68.5 Lymphocytes % 21.3 Monocytes % 7.0 Eosinophils % 2.2 Basophils % 0.6 Nucleated RBC % 0 Absolute Neutrophils 3.40 Absolute Lymphocytes 1.06 L Absolute Monocytes 0.35 Absolute Eosinophils 0.11 Absolute Basophils 0.03 Sodium 137 Potassium 4.2 Chloride 102 Carbon Dioxide 28.3 Anion Gap 6.7 BUN 4 L Creatinine 0.7 Estimated GFR/1.73 m2 >= 60.00 Glucose 98 Calcium 8.1 L Magnesium 1.7 L SARS-CoV-2 (PCR) Negative 04/17/20 20:40 Urine - Reflex from Urine Culture - Pending Preliminary micro results at discharge 04/17/20 20:40 Urine Culture - Pending Urine - Reflex from [facility] Medical History Alcohol withdrawal ARDS (adult respiratory distress syndrome) Aspiration pneumonia COVID-19 ruled out by laboratory testing HTN (hypertension) Hx of hyperlipidemia Myocardial infarction x 2 Pancreatitis Pancreatitis, chronic Presence of pancreatic duct stent (~01/2018) Sean Sears Surgical History S/P ERCP (~01/2018) Sean Sears Family History Mother Alcohol abuse Father Alcohol abuse Social History Smoking/Tobacco Use Status: Current every day Tobacco Type: cigarettes Smoking packs per day: 1 Smoking cigarettes per day: 20.0 Smoking risk assessment performed?: Yes Alcohol Intake: current Alcohol Intake frequency: 3 or more drinks per day Alcohol type: beer Drug use: Never Details: no IV drug use Housing: apartment Do you feel safe at home: Yes Do you feel safe in your relationship?: Yes
--- NOTE | 2020-04-19 15:59 | CMDISCH_ITS ---
LACE Index Scoring Tool - Questions: Length of Stay (in days): 2 Acuity (Admit via E.D.?): Yes Comorbidities: Previous M.I., Liver or Renal Disease E.D. Visits: 14 - Answers: Total Score: 14 Risk of Readmission: High Risk Care Management Discharge Reason for Hospitalization: UTI, Abdominal Pain Discharge Plan: Juan Jose will be discharged home when medically cleared by provider. He will follow up with his PCP, and discharge plan of care as directed. Transport home will be via private vehicle via [facility]; coordinated by this internal communications writer. Patient/Family Education Needs: Review discharge instructions, discuss Ask Me Three.
== END 2020-04-19 11:22 | disposition home or self-care (01) ==
LOC: ER 21:49 → MS 22:52
PROVIDERS: Family Medicine; Physician Assistant; Admitting Provider Internal Medicine; Emergency Provider Emergency Medicine; PCP Student in an Organized Health Care Education/Training Program; Visit Provider Internal Medicine
DX: N39.0 Urinary tract infection, site not specified (principal); F10.229 Alcohol dependence with intoxication, unspecified; R11.2 Nausea with vomiting, unspecified; R33.9 Retention of urine, unspecified; R19.7 Diarrhea, unspecified; K76.0 Fatty (change of) liver, not elsewhere classified; K83.8 Other specified diseases of biliary tract; Z86.718 Personal history of other venous thrombosis and embolism; Z79.01 Long term (current) use of anticoagulants; Y90.8 Blood alcohol level of 240 mg/100 ml or more; K57.30 Diverticulosis of large intestine without perforation or abscess without bleeding; N40.1 Benign prostatic hyperplasia with lower urinary tract symptoms; Z20.822 Contact with and (suspected) exposure to COVID-19; I25.2 Old myocardial infarction; K86.1 Other chronic pancreatitis; F17.210 Nicotine dependence, cigarettes, uncomplicated; E83.42 Hypomagnesemia
CPT/HCPCS: 36415; 51702; 76770; 80048; 80053; 80307; 83690; 93005; 96361; 96365; 96375; 99214; 99220; 99232; 99239; 99253; 99285; 70450; 74177; 74181; 76700; 80320; 81003; 81015; 83735; 84484; 85025; 85610; 85730; 87086; 93010; 99217; G0378; J0696; J2405; J3360; J3490

== ENCOUNTER 2020-04-19 20:24 | Emergency (ER) | payer MEDICAID, SELFPAY ==
[2020-04-19] VITALS (27 sets, daily range): BP systolic 54–129; BP diastolic 32–83; PULSE 91–122; RESP 13–26; TEMP 36.5; O2SAT 95–100
--- NOTE | 2020-04-19 20:30 | RT.EKG_ITS ---
APPROVED REPORT Exam: Resting ECG Patient Location: E HR:118 bpm ECG Measurements Heart Rate 118 AXIS TX 141 P 60 QRSd 76 QRS -2 QT 334 T 38 QTc 469 Conclusion Sinus tachycardia...rate> 99 Low voltage, extremity and precordial leads...extremity<0.5mV, precordial<1.0mV Consider anteroseptal infarct...Q >30mS, dimin R, V1-V2 I have reviewed and interpreted ECG and agree with software generated interpretation. Physician: No STEMI, unchanged from previous
--- NOTE | 2020-04-19 20:32 | ED.GENADUL_ITS ---
Discharge Plan Disposition Patient Disposition: HOME Condition: Good Discharge Details Clinical Impression: Alcoholism, chronic, Alcoholic gastritis Primary Care Provider: Gregoria Perez ED Provider: Fidel Smith Home Meds and New Rx's Prescriptions: Continued Eliquis 5 mg tablet 5 mg PO BID Qty: 60 RF: 0 folic acid 1 mg tablet 1 mg PO DAILY Qty: 30 RF: 0 guaifenesin [Mucinex] 600 mg tablet extended release 12hr 600 mg PO BID PRN (Reason: cough) Qty: 20 RF: 0 Creon 12,000-38,000 -60,000 unit capsule,delayed release(DR/EC) 1 cap PO AC & HS Qty: 120 RF: 0 multivitamin Tablet 1 tab PO DAILY Qty: 30 RF: 0 thiamine HCl (vitamin B1) 100 mg tablet 100 mg PO DAILY Qty: 30 RF: 0 tamsulosin 0.4 mg Capsule 0.8 mg PO DAILY Qty: 30 RF: 0 famotidine [Pepcid] 40 mg tablet 40 mg PO DAILY Qty: 30 RF: 0 cephalexin 500 mg capsule 500 mg PO TID Qty: 9 RF: 0 Discharge Instructions Instructions: Cephalexin (By mouth), Gastritis (ED) Additional Instructions: At this time you show evidence of irritation likely secondary to your alcohol consumption. Please do your very best stop drinking alcohol as this causes irritation to your stomach lining. Please continue to take the Pepcid at home, and take Maalox or Pepto-Bismol if your symptoms return. Please take the Keflex as prescribed to you. We did give you a small bottle to go home with until you fill the prescription that you were given at discharge today. If you notice any worsening of your symptoms, or any new symptoms such as vomiting, diarrhea, fever, chills, shortness of breath, chest pain, numbness, weakness, or fainting , please return immediately to the emergency department for reevaluation. Please follow up with your primary care provider as soon as possible for reassessment and reevaluation. As always, it was a pleasure participating in your medical care today. Referrals: Gregoria Perez DO [Primary Care Provider] - Discharge Data Discharge Date/Time-TO BE ENTERED AT DEPARTURE: 04/19/20 23:45 Medical Decision Making Patient is a 59-year-old male with a history of alcohol abuse, hypertension, hyperlipidemia, pancreatitis, pancreatic mass, myocardial infarction has had previous pancreatic stents, with subsequent removal, right upper extremity DVT chronically anticoagulated with apixaban, occasional upper GI bleeds who was recently just admitted 2 days ago for UTI, gastritis, and intoxication,, had a CT abdomen pelvis at that time and subsequently an abdominal MRI just yesterday. He was discharged this afternoon, went home, drank 3-4 4-loco's, smoked a bu nch, and smoked a joint. Immediately after drinking the alcohol he had a recurrence of his chronic upper abdominal pain. He admitted to monitor 2 episodes of vomiting with some small speckling of blood in it. He states the pain feels identical to his previous episodes of gastritis with alcohol intake. He admits to occasional dark stools, but denies any bloody stools. He denies any chest pain, shortness of breath, or chest heaviness or chest tightness. He did not take any of his medications today. No other complaints at this time. Exam demonstrates mild epigastric tenderness, no unilateral focality. Vital signs unremarkable, blood pressure stable. No signs of an acute surgical abdomen on exam. He does appear mildly intoxicated. Review of his discharge summary from just a few hours ago including the MRI and ultrasound performed just yesterday showed no evidence of acute process. MRI actually shows improvement of the inflammatory components around the pancreas and the pancre atic head calcifications. Minimal ductal dilatation throughout appears to be chronic and improving. Gallbladder on the MRI and ultrasound appears relatively unremarkable aside for minimal distention, minimal wall thickening. CBD is slightly prominent. No other significant abnormality is otherwise noted. At this time with a notably nonsurgical abdomen, his symptoms arising immediately after ingesting alcohol, his exam appears clinically consistent with alcoholic gastritis which is chronic but always worsened with his alcohol intake, notable for which occurred today. We will give Protonix and famotidine, GI cocktail. No indication for repeat imaging with his current exam findings and the recent imaging he had this yesterday. Will monitor closely and reassess. We will get a urinalysis to evaluate for infection as he was discharged with Keflex for resolution of his UTI. 9:48 PM Patient's laboratory work-up is returned, CBC shows no white count bandemia or left shift. No evidence of anemia whatsoever. Hemoglobin stable at 14.3, which is actually an increase from his hemoglobin level even earlier today. Platelets normal. Electrolytes normal. Renal function good, troponin normal. Lipase lower than when discharged earlier. No transaminitis. No elevation of his bilirubin. Exam is notably reassuring. He still continues to show no signs of any active upper or lower GI bleed. He has had no more vomiting whatsoever. No melanotic stools. No bloody stools. Vital signs remained stable. The patient was unwilling to urinate here. He has not filled his Keflex prescription at home yet. We will give him a dose here, and a small bottle to go home with until he feels this prescription. Alcohol level is elevated, and unfortunately appears to be the cause of today's symptomatology. Signs and symptoms at this time are clinically consistent with alcoholic gastritis, and clinically inconsistent with significant upper GI bleed, cardiac etiology, her acute surgical abdomen or life-threatening etiology. We will allow the patient to sober up here in the ED, and once he is clinically sober he will be discharged home. I had a long discussion with him regarding the importance of sobriety, and how this leads to his recurrent symptoms. 12 AM Patient doing well, for the last 2 hours he has been asking to go home. Patient has finished his fluids. He feels well. The patient is able to speak clearly. There is no demonstration of any slurring of speech. There is evidence of clear decision making capacity. Patient is able to ambulate well without any difficult y. There are no signs of ataxia or stumbling motions. No current clinical evidence of intoxication, the patient appears clinically sober. Patient will be discharged home. Discussed red flags which to return. Recommend continuation of the Keflex prescription out of an abundance of precaution, avoidance of all alcohol, and continue to take his Pepcid at home. I have extensively reviewed the treatment plan and discharge instructions with the patient. I have addressed all patient concerns at this time. The patient was made aware of what symptoms to monitor for that would warrant a return to the emergency department. Discussed the plan with the patient, they demonstrate verbal understanding and agreement with our assessment and plan at this time. The documentation in this chart was dictated using [employer] dictation software. Please excuse any dictation errors. HPI General Date/Time Provider Initiated Documentation: 04/19/20 21:32 . HPI Narrative: Patient is a 59-year-old male with a history of alcohol abuse, hypertension, hyperlipidemia, pancreatitis, pancreatic mass, myocardial infarction has had previous pancreatic stents, with subsequent removal, right upper extremity DVT chronically anticoagulated with apixaban, occasional upper GI bleeds who was recently just admitted 2 days ago for UTI, gastritis, and intoxication,, had a CT abdomen pelvis at that time and subsequently an abdominal MRI just yesterday. He was discharged this afternoon, went home, drank 3-4 4-loco's, smoked a bunch, and smoked a joint. Immediately after drinking the alcohol he had a recurrence of his chronic upper abdominal pain. He admitted to monitor 2 episodes of vomiting with some small speckling of blood in it. He states the pain feels identical to his previous episodes of gastritis with alcohol intake. He admits to occasional dark stools, but denies any bloody stools. He denies any chest pain, shortness of breath, or chest heaviness or chest tightness. He did not take any of his medications today. No other complaints at this time. Related Data Home Medications Medication Instructions Recorded Confirmed Creon 1 cap PO AC & HS #120 cap 01/28/20 04/17/20 Eliquis 5 mg PO BID #60 tab 01/28/20 04/17/20 folic acid 1 mg PO DAILY #30 tab 01/28/20 04/17/20 guaifenesin [Mucinex] 600 mg PO BID PRN #20 tab 01/28/20 04/17/20 multivitamin 1 tab PO DAILY #30 tab 01/28/20 04/17/20 thiamine HCl (vitamin B1) 100 mg PO DAILY #30 tab 01/28/20 04/17/20 tamsulosin 0.8 mg PO DAILY #30 cap 02/07/20 04/17/20 cephalexin 500 mg PO TID #9 cap 04/19/20 famotidine [Pepcid] 40 mg PO DAILY #30 tab 04/19/20 Previous Rx's Medication Instructions Recorded Creon 1 cap PO AC & HS #120 cap 01/28/20 Eliquis 5 mg PO BID #60 tab 01/28/20 folic acid 1 mg PO DAILY #30 tab 01/28/20 guaifenesin [Mucinex] 600 mg PO BID PRN #20 tab 01/28/20 multivitamin 1 tab PO DAILY #30 tab 01/28/20 thiamine HCl (vitamin B1) 100 mg PO DAILY #30 tab 01/28/20 tamsulosin 0.8 mg PO DAILY #30 cap 02/07/20 cephalexin 500 mg PO TID #9 cap 04/19/20 famotidine [Pepcid] 40 mg PO DAILY #30 tab 04/19/20 Allergies Allergy/AdvReac Type Severity Reaction Status Date / Time Penicillins Allergy Unverified 02/04/20 14:55 General Stated Complaint: Abd Prob DMITRI: 4 Review of Systems All systems reviewed & are unremarkable except as noted in HPI and below PFSH Medical History Alcohol withdrawal ARDS (adult respiratory distress syndrome) Aspiration pneumonia COVID-19 ruled out by laboratory testing HTN (hypertension) Hx of hyperlipidemia Myocardial infarction x 2 Pancreatitis Pancreatitis, chronic Presence of pancreatic duct stent (~01/2018) Orion NHolly. Surgical History S/P ERCP (~01/2018) Orion NWilber Family History Mother Alcohol abuse Father Alcohol abuse Social History Smoking/Tobacco Use Status: Current every day Tobacco Type: cigarettes Smoking packs per day: 1 Smoking cigarettes per day: 20.0 Smoking risk assessment performed?: Yes Alcohol Intake: current Alcohol Intake frequency: 3 or more drinks per day Alcohol type: beer Drug use: Occasionally Substance use type: marijuana Details: no IV drug use Housing: apartment Do you feel safe at home: Yes Do you feel safe in your relationship?: Yes Exam Narrative Exam Narrative: 1.Const: Well-nourished, Well-developed, appears chronically older than stated age 2.Eyes: PERRL, no conjunctival injection, and symmetrical lids. 3.ENT: Atraumatic external nose and ears. Moist MM. Neck: Symmetric, trachea midline, No thyromegaly. 4.CVS: +S1/S2, No murmurs or gallops. Peripheral pulses 2+ and equal in all extremities. Brisk capillary refill in all extremities. 5.RESP: Unlabored respiratory effort. Clear to auscultation bilaterally. No wheezes rales or rhonchi 6.GI: Soft, no distention, mild epigastric tenderness, no focality to the right or the left. No guarding or rebound, no evidence of an acute surgical abdomen. 7.MSK: Normocephalic/Atraumatic, Extremities w/o deformity or ttp No cyanosis or clubbing, Normal movement of all extremities 8.Skin: Warm, Dry. No rashes or lesions. 9.Neuro: medical director occupational health II-XII grossly intact. Sensation grossly intact, no focal neurologic deficits. 10.Psych: (AAO) x3. Appropriate mood and affect, but does appear mildly intoxic ated Course Vital Signs Vital signs: Vital Signs Temperature 36.5 C 04/19/20 20:24 Pulse 95 H 04/19/20 20:24 Respiratory Rate 20 04/19/20 20:24 Blood Pressure 121/83 04/19/20 20:24 Pulse Oximetry 97 04/19/20 20:24 Temperature 36.5 C 04/19/20 20:24 Temperature Source Temporal Artery Scan 04/19/20 20:24 Pulse 95 H 04/19/20 20:24 Respiratory Rate 20 04/19/20 20:24 Respiratory Effort Non-Labored 04/19/20 20:28 Blood Pressure 121/83 04/19/20 20:24 Blood Pressure Position Supine 04/19/20 20:24 Pulse Oximetry 97 04/19/20 20:24 Oxygen Delivery Method Room Air 04/19/20 20:24 Oxygen Flow Rate 0 04/19/20 20:24 Pain Level 10 04/19/20 20:24
[2020-04-19] MEDS: Normal Saline 1,000 ML 1000 ML IV (20:42)
[2020-04-19] MEDS: FAMOTIDINE 20 MG/50 ML BAG 200 MG IVPB (20:47)
[2020-04-19] MEDS: Pantoprazole 40 MG VIAL IVP (20:48)
[2020-04-19] MEDS: Ondansetron 4 MG/2 ML VIAL IVP (20:48)
[2020-04-19] MEDS: Sucralfate 1 GM TAB PO (20:48)
[2020-04-19 21:09] LABS: Abs Immature Grans 0.01 10^3/uL (0.0-0.06); Absolute Basophil Count 0.02 10^3/uL (0.0-0.2); Absolute Eosinophil Count 0.08 10^3/uL (0.0-0.7); Absolute Lymphocyte Count 1.97 10^3/uL (1.2-3.4); Absolute Monocyte Count 0.39 10^3/uL (0.1-0.8); Absolute Neutrophil Count 2.93 10^3/uL (1.2-6.7); Basophils % 0.4; Eosinophils % 1.5; HCT 42.8 % (40.0-50.0); HGB 14.3 g/dL (13.5-17.5); Immature Grans % 0.2; Lymphocytes % 36.5; MCH 32.4 pg (27.0-33.0); MCHC 33.4 % (32.0-36.0); MCV 96.8 fL (80-95); Monocytes % 7.2; Neutrophils % 54.2; Nucleated RBC 0 %; Platelet Count 182 10^3/uL (130-400); RBC 4.42 10^6/uL (4.36-5.78); RDW 13.4 % (11.8-14.1); RDW-SD 48.2 fL
[2020-04-19 21:20] LABS: Lipase 105 U/L (73-393)
[2020-04-19 21:25] LABS: ALT 18 U/L (16-63); AST 28 U/L (15-37); Albumin 2.7 g/dL (3.4-5.0); Alkaline Phosphatase 111 U/L (46-116); Anion Gap 9.2 mmol/L (3-11); BUN 4 mg/dL (7-18); Bilirubin, Total 0.2 mg/dL (0.2-1.0); CO2 26.8 mmol/L (21.0-32.0); CREATININE 0.8 mg/dL (0.70-1.30); Chloride 106 mmol/L (98-107); Glucose 117 mg/dL (74-106); Potassium 3.7 mmol/L (3.5-5.1); Sodium 142 mmol/L (136-145); Total Protein 6.8 g/dL (6.4-8.2)
[2020-04-19 21:26] LABS: Troponin I < 0.05 ng/mL (<0.06)
[2020-04-19 21:27] LABS: PTT Activated 24.4 sec (21.0-27.5); Prothrombin Time 10.1 sec (9.3-11.0)
[2020-04-19] MEDS: Cephalexin 500 MG CAP, 4 CAPS/BTL PO (21:49)
[2020-04-19] MEDS: ACETAMINOPHEN 1,000 MG/100 ML BTL 400 MG IVPB (21:49)
[2020-04-19 22:00] LABS: Bilirubin Negative (Negative); Blood Negative (Negative); Clarity Clear (Clear); Glucose Negative (Negative); Ketones Negative (Negative); Leukocyte Esterase Negative (Negative); Nitrite Negative (Negative); Specific Gravity 1.015 (1.005-1.025); Urobilinogen 0.2 EU/dL (Up TO 0.2)
[2020-04-19] MEDS: Lactated Ringers 1,000 ML 1000 ML IV (22:15)
== END 2020-04-19 23:45 | disposition home or self-care (01) ==
PROVIDERS: Emergency Provider Student in an Organized Health Care Education/Training Program; PCP Student in an Organized Health Care Education/Training Program
DX: F10.20 Alcohol dependence, uncomplicated (principal); K29.20 Alcoholic gastritis without bleeding
CPT/HCPCS: 80053; 83690; 93005; 96360; 96375; 99284; 80320; 81003; 84484; 85025; 85610; 85730; 93010; J0131; J2405

== ENCOUNTER 2020-04-20 17:27 | Emergency (ER) | payer MEDICAID, SELFPAY ==
[2020-04-20] VITALS (8 sets, daily range): BP systolic 103–162; BP diastolic 63–99; PULSE 94–126; RESP 14–22; O2SAT 96–98
--- NOTE | 2020-04-20 17:15 | RT.EKG_ITS ---
APPROVED REPORT Exam: Resting ECG Patient Location: E HR:120 bpm ECG Measurements Heart Rate 120 AXIS IA 140 P 64 QRSd 84 QRS -23 QT 329 T 27 QTc 463 Conclusion Sinus tachycardia...rate> 99 Low voltage, extremity and precordial leads...extremity<0.5mV, precordial<1.0mV
--- NOTE | 2020-04-20 17:29 | ED.GENADUL_ITS ---
Discharge Plan Disposition Patient Disposition: HOME Condition: Stable Discharge Details Clinical Impression: Alcoholism /alcohol abuse, Abdominal pain, Enterocolitis, Alcoholic gastritis Primary Care Provider: Gregoria Perez ED Provider: Fidel Smith Home Meds and New Rx's Prescriptions: Continued Eliquis 5 mg tablet 5 mg PO BID Qty: 60 RF: 0 folic acid 1 mg tablet 1 mg PO DAILY Qty: 30 RF: 0 guaifenesin [Mucinex] 600 mg tablet extended release 12hr 600 mg PO BID PRN (Reason: cough) Qty: 20 RF: 0 Creon 12,000-38,000 -60,000 unit capsule,delayed release(DR/EC) 1 cap PO AC & HS Qty: 120 RF: 0 multivitamin Tablet 1 tab PO DAILY Qty: 30 RF: 0 thiamine HCl (vitamin B1) 100 mg tablet 100 mg PO DAILY Qty: 30 RF: 0 tamsulosin 0.4 mg Capsule 0.8 mg PO DAILY Qty: 30 RF: 0 famotidine [Pepcid] 40 mg tablet 40 mg PO DAILY Qty: 30 RF: 0 cephalexin 500 mg capsule 500 mg PO TID Qty: 9 RF: 0 Discharge Instructions Instructions: Gastritis (ED) Additional Instructions: As we discussed last night, and again today it is vitally important that you cut down on your drinking. You do have evidence of chronic irritation in your stomach in your gallbladder and in your pancreas from your drinking. It is important for your health and for these etiologies that you cut down on your drinking. If you notice any worsening of your symptoms, or any new symptoms such as vomiting, diarrhea, fever, chills, shortness of breath, chest pain, numbness, weakness, or fainting , please return immediately to the emergency department for reevaluation. Please follow up with your primary care provider as soon as possible for reassessment and reevaluation. As always, it was a pleasure participating in your medical care today. Referrals: Gregoria Perez DO [Primary Care Provider] - Discharge Data Discharge Date/Time-TO BE ENTERED AT DEPARTURE: 04/20/20 21:20 Medical Decision Making <Brett Blanco MD - Last Filed: 04/20/20 19:29> 59-year-old male with a history of alcohol abuse, hypertension, hyperlipidemia, pancreatitis, pancreatic mass, myocardial infarction has had previous pancreatic stents, with subsequent removal, right upper extremity DVT chronically anticoagulated with apixaban, occasional upper GI bleeds who was recently just admitted this past week for UTI, gastritis, and intoxication, had a CT abdomen pelvis at that time and subsequently an abdominal MRI during the admission showing chronic enlarged pancreatic duct and improved chronic pancreatic changes, comes in with chief complaint of abdominal pain after having alcohol and is intoxicated on exam. He localizes the pain to the epigastric region and has no distention, denies fevers or dyspnea. He has clear lung sounds, and is tender on exam in the ruq and epigastric region no lower abdominal discomfort. Suspect alcohol induced gastritis given recent negative workups. He is alert and oriented x3 with slurred speech and smell of alcohol . Will evaluate for pancreatitis, anemia, and electrolyte abnormalities and reassess. Pt still having pain and lactate is elevated at 3.5 which could be from dehydration but given his abdominal pain concern for possible mesenteric ischemia, will obtain cta pt resting comfortably after ct in no distress, awaiting cta results, rest of labs unremarkable other than alcohol level over 360. Will repeat lactate after fluids to see if it is downtrending, no fevers or other infectious symptoms to suggest sepsis. He has a distended bladder on cta and afterwards was able to urinate over 500cc. cta shows no significant emergent findings, has esophagitis, possible inflammatory vs infectious gastroenterocolitis, chronic pancreatic changes that are improving. Has continued wall thickening of the gallbladder but currently no ackerman's sign and no leukocytosis of elevation in lfts from baseline so doubt cholecystitis. Patient will be signed out to oncoming provider for reassessment when clinically sober Differential Diagnosis Differential Diagnosis: gastritis, pancreatitis, hepatitis Medical Records Medical records reviewed: Yes I reviewed the patient's medical records. Imaging Data Radiologic Study: Attestation: I personally reviewed and interpreted this imaging study as follows: Imaging: CT Scan Radiologist's impression: IMPRESSION: 1. No evidence for a thoracic aortic aneurysm or dissection. No large pulmonary embolus. 2. Mild esophagitis. 3. Mild bronchiectasis. No focal pulmonary infiltrate. IMPRESSION: 1. Findings most consistent with an infectious or inflammatory gastroenterocolitis. Diverticulosis without diverticulitis. No bowel obstruction. 2. Unchanged significant of the pancreatic duct, with a transition point seen at the uncinate process where dense calcifications and areas of low attenuation is seen. Mild dilatation of the common bile duct is also seen. Mild fluid in stranding surrounds the pancreatic tail. This fluid is improved when compared to the prior study. Overall, this suggests improving pancreatitis. However, a follow-up MRI/MRCP and/or pancreatic mass protocol CT should be performed in 3-6 months to ensure continued stability and to exclude a developing pancreatic neoplasm. Alternatively, an upper endoscopy/ERCP can also be considered. 3. Moderate wall thickening within the gallbladder with mild pericholecystic fluid. No calcified gallstones. This finding is nonspecific, but could represent developing cholecystitis. If clinically indicated, this can be further evaluated with a right upper quadrant ultrasound. 4. Moderate, 50-69%, stenosis within the origin of the right common iliac artery. Otherwise, no hemodynamically significant stenosis within the remaining arteries. Lab Data Lab results reviewed: Yes I reviewed the patient's lab results. ECG Data Attestation: I personally reviewed and interpreted this ECG (s) as follows: Prior ECG tracings: available for review Interpretation: sinus tachycardia, rate of 120, pr 140, qtc [address] t wave ischemic changes <Fidel Smith, DO - Last Filed: 04/20/20 21:30> 9:15 PM Patient was signed out to me by my colleague Dr. Brett Blanco for reevaluation for assessment of clinical sobriety. Please refer to Dr. Blanco's physical exam, HPI, and assessment and plan. At time of transition of care imaging had return. There was evidence of some chronic findings on CT scan, some colonic biliary sludging irritation, slightly more acute gastroenteritis. All likely secondary to the patient's alcohol use. His labs are notably reassuring with a normal lipase, normal bilirubin, normal transaminases, there is no evidence of an elevated white count or left shift whatsoever. Repeat physical exam shows no signs of an acute surgical abdomen whatsoever. No evidence of Ackerman sign. Symptoms are inconsistent with acute cholecystitis. I did contact Dr. Dumont of surgery as a precaution, we discussed the case including the findings and the imaging. She agrees on the chronicity of the symptoms, with no need for acute surgical intervention based on his current physical exam and clinical findings. Additionally the patient had no interest in getting repeat labs for reevaluation of lactate. Review of prior labs demonstrate that this level is actually fairly unremarkable for him. CT showed no signs of mesenteric ischemia. No evidence of severe sepsis or septic shock. Patient refuses any additional labs to recheck currently. I did also contact the patient's job coach, and it appears they have actually had a hard time reaching him lately as he had a change in address and phone numbers. They will follow up with him tomorrow. Patient is clinically sober at this time on my exam. The patient is able to speak clearly. There is no demonstration of any slurring of speech. There is evidence of clear decision making capacity. Patient is able to ambulate well without any difficulty. There are no signs of ataxia or stumbling motions. Patient is demanding to leave, and does not want to be in the ER anymore. We have offered him additional resources, he has refused these and would like to go home. With no signs of clinical intoxication this is appropriate at this time. I have extensively reviewed the treatment plan and discharge instructions with the patient. I have addressed all patient concerns at this time. The patient was made aware of what symptoms to monitor for that would warrant a return to the emergency department. Discussed the plan with the patient, they demonstrate verbal understanding and agreement with our assessment and plan at this time. The documentation in this chart was dictated using [employer] dictation software. Please excuse any dictation errors. HPI <Brett Blanco MD - Last Filed: 04/20/20 19:29> General Mode of arrival: EMS . Date/Time Provider Initiated Documentation: 04/20/20 17:36 . Limitations to Documentation: no limitations . Information obtained by: patient . History of Present Illness 59 year old M presents to the emergency department with the chief complaint of abdominal pain, described as moderate and severe, and is localized to the abdomen. Patient reports no radiation. Patient started experiencing this day(s) (3) and it has been intermittent. No relieving factors improve symptom(s), No exacerbating factors reported . Patient did receive the following treatments prior to arrival, none Related Data Home Medications Medication Instructions Recorded Confirmed Creon 1 cap PO AC & HS #120 cap 01/28/20 04/17/20 Eliquis 5 mg PO BID #60 tab 01/28/20 04/17/20 folic acid 1 mg PO DAILY #30 tab 01/28/20 04/17/20 guaifenesin [Mucinex] 600 mg PO BID PRN #20 tab 01/28/20 04/17/20 multivitamin 1 tab PO DAILY #30 tab 01/28/20 04/17/20 thiamine HCl (vitamin B1) 100 mg PO DAILY #30 tab 01/28/20 04/17/20 tamsulosin 0.8 mg PO DAILY #30 cap 02/07/20 04/17/20 cephalexin 500 mg PO TID #9 cap 04/19/20 famotidine [Pepcid] 40 mg PO DAILY #30 tab 04/19/20 Previous Rx's Medication Instructions Recorded Creon 1 cap PO AC & HS #120 cap 01/28/20 Eliquis 5 mg PO BID #60 tab 01/28/20 folic acid 1 mg PO DAILY #30 tab 01/28/20 guaifenesin [Mucinex] 600 mg PO BID PRN #20 tab 01/28/20 multivitamin 1 tab PO DAILY #30 tab 01/28/20 thiamine HCl (vitamin B1) 100 mg PO DAILY #30 tab 01/28/20 tamsulosin 0.8 mg PO DAILY #30 cap 02/07/20 cephalexin 500 mg PO TID #9 cap 04/19/20 famotidine [Pepcid] 40 mg PO DAILY #30 tab 04/19/20 Allergies Allergy/AdvReac Type Severity Reaction Status Date / Time Penicillins Allergy Unverified 02/04/20 14:55 General DMITRI: 4 Review of Systems <Brett Blanco MD - Last Filed: 04/20/20 19:29> All systems reviewed & are unremarkable except as noted in HPI and below Constitutional Constitutional: Denies chills, Denies fever(s) and Denies weakness Cardiovascular Cardiovascular: Denies chest pain and Denies dyspnea Respiratory Respiratory: Denies cough and Denies dyspnea Gastrointestinal Gastrointestinal: Denies vomiting Musculoskeletal Musculoskeletal: Denies joint swelling Neurologic Neurologic: Denies weakness PFS <Brett Blanco MD - Last Filed: 04/20/20 19:29> Medical History Alcohol withdrawal ARDS (adult respiratory distress syndrome) Aspiration pneumonia COVID-19 ruled out by laboratory testing HTN (hypertension) Hx of hyperlipidemia Myocardial infarction x 2 Pancreatitis Pancreatitis, chronic Presence of pancreatic duct stent (~01/2018) [facility] Surgical History S/P ERCP (~01/2018) Sean Sears Family History Mother Alcohol abuse Father Alcohol abuse Social History Smoking/Tobacco Use Status: Current every day Tobacco Type: cigarettes Smoking packs per day: 1 Smoking cigarettes per day: 20.0 Smoking risk assessment performed?: Yes Alcohol Intake: current Alcohol Intake frequency: 3 or more drinks per day Alcohol type: beer Drug use: Occasionally Substance use type: marijuana Details: no IV drug use Housing: apartment Do you feel safe at home: Yes Do you feel safe in your relationship?: Yes Exam <Brett Blanco MD - Last Filed: 04/20/20 19:29> Const General: no acute distress Orientation: alert HENMT Head: normal to inspection Ears: external ears normal General nose exam: external nose normal Mouth: moist mucous membranes Eyes General: appearance normal, both eyes and all related structures Neck Neck: normal visual inspection Resp Effort & Inspection: normal respiratory effort and able to speak in complete sentences Cardio Rate: regular rate GI Palpation: soft and tender Skin General skin exam: no rashes or lesions noted Neuro General: patient alert Extrem General: normal to inspection Psych Mental Status: mental status grossly normal Sign Out <Brett Blanco MD - Last Filed: 04/20/20 19:29> Sign Out Data: Sign Out Comment: abdominal pain, pending reevaluation when clinically sober and repeat lactate. CT shows esophagitis, mild thickened gallbladder wall with mild pericholecystic fluid. Last updated by Brett Blanco MD at 04/20/20 19:33
--- NOTE | 2020-04-20 17:45 | DI.CT_ITS ---
EXAM: CT THORAX ABD/PEL CTA CLINICAL HISTORY: epigastric pain, lactic acidosis. TECHNIQUE: Imaging Protocol: Axial CT angiography was performed with multi-slice acquisition and m ulti-planar and/or 3D reconstructions. CONTRAST MATERIAL: Intravenous: Omnipaque 350 Contrast volume:100 mL Oral: No COMPARISON: CT CT ABDOMEN PELVIS W from 04/17/[address] HEAD WO from 04/17/[address] ABDOMEN PELVIS W from 04/17/2020 FINDINGS: CHEST: Tracheobronchial tree: Patent where visualized. Pulmonary parenchyma: No consolidation or dominant measurable mass. No architectural distortion. Pulmonary Arteries: No evidence of filling defect to suggest pulmonary emboli. Mediastinum and Caroline: No dominant adenopathy or fluid collection. Visualized thyroid: Unremarkable. Pleura: No effusion or pneumothorax. Heart: The heart is not dilated. Moderate coronary artery calcification. No pericardial effusion. Aorta: Thoracic aorta non-dilated. Atherosclerosis. No evidence of dissection. Soft Tissues: Unremarkable. Bones: Normal. ABDOMEN AND PELVIS: Abdomen: Celiac axis/mesenteric arteries: No evidence of occlusion or significant stenosis. Renal Arteries: No evidence of occlusion. There is a single renal artery perfusing each kidney. Ther e is atherosclerosis at the origins of both renal arteries. This results in mild right stenosis and [id number] left stenosis. Aorta: No evidence of occlusion or significant stenosis. No aneurysm or dissection. Moderate ather osclerosis. Pelvis: Iliac Arteries: No evidence of occlusion or significant stenosis. Moderate atherosclerosis. It is most marked at the proximal right common iliac artery resulting in moderate stenosis. There is other hamilton mild (less than 50 percent) stenosis. Common Femoral Arteries: No evidence of occlusion or significant stenosis. Moderate atherosclerosis . ABDOMEN: Liver: There is diffuse decreased attenuation of the liver consistent with fatty infiltration. No me asurable mass. Portal, Superior Mesenteric, and Splenic Veins: Unremarkable. Gallbladder and Biliary Tract: There is diffuse thickening of the wall of the gallbladder. There is mild pericholecystic fluid. No stones are present. There is no change in the size of the bile ducts . Pancreas: There again seen calcifications in the pancreas particularly the head. There is again seen dilatation of the pancreatic duct and mild atrophy of the body and pancreatic tail. Mild inflammato ry changes are seen around the pancreas particularly the tail. No focal fluid collection is seen to suggest pseudocyst or abscess. The findings are unchanged compared to 04/17/2020. Spleen: Normal. Adrenals: No masses seen. Kidneys: Normal size, contour and axis. No radiodense stones or obstructive uropathy. No masses seen. Bowel: No evidence of bowel obstruction. Mild wall thickening seen in the stomach and proximal small bowel. This may represent a mild gastroenteritis. Appendix is unremarkable. Diverticulosis of the sigmoid colon is noted but no evidence of acute diverticulitis. Peritoneal Cavity: No ascites, collection or mesenteric inflammatory response. No free air. Lymph Nodes: Within normal limits. Bones: Unremarkable. Soft Tissues: Unremarkable. PELVIS: Bladder: Symmetric distention, no gross wall thickening. Reproductive Organs: Mildly enlarged prostate gland. Lymph Nodes: Within normal limits. Bones: Within normal limits. IMPRESSION: 1. Stable appearance of the pancreas in the peripancreatic soft tissues suggesting improving pancreat itis. MRI/MRCP or pancreatic protocol CT scan may be considered to exclude a pancreatic mass. 2. Water wall thickening and mild pericholecystic fluid. If there is concern for acute cholecystitis right upper quadrant ultrasound should be considered for further evaluation. 3. No evidence of abdominal aortic dissection or aneurysm. Moderate atherosclerosis seen resulting i n moderate stenosis of the left renal artery and the right common iliac artery. 4. Findings which may represent a mild infectious or inflammatory gastroenteritis. 5. No evidence of pulmonary embolism, thoracic aortic dissection or aneurysm. RADIATION DOSE DELIVERED: 852.09mGy.cm Total DLP DATA REPOSITORY: All CT scans at this facility are submitted to the National Radiology Data Registry (NRDR) Dose Index Registry (DIR) with the [employer] (A[employer]). RADIATION OPTIMIZATION: All CT scans at this facility use at least one of these dose optimization te chniques: automated exposure control; mA and/or kV adjustment per patient size (includes targeted exa ms where dose is matched to clinical indication); or iterative reconstruction.
[2020-04-20] MEDS: Normal Saline 1,000 ML 1000 ML IV ×2 (17:51→18:32)
[2020-04-20] MEDS: Ondansetron 4 MG/2 ML VIAL IVP (17:51)
[2020-04-20 17:53] LABS: Lactate 3.5 mmol/L (0.6-1.4)
[2020-04-20 17:55] LABS: Abs Immature Grans 0.01 10^3/uL (0.0-0.06); Absolute Basophil Count 0.04 10^3/uL (0.0-0.2); Absolute Eosinophil Count 0.17 10^3/uL (0.0-0.7); Absolute Lymphocyte Count 3.25 10^3/uL (1.2-3.4); Absolute Monocyte Count 0.43 10^3/uL (0.1-0.8); Absolute Neutrophil Count 2.57 10^3/uL (1.2-6.7); Basophils % 0.6; Eosinophils % 2.6; HCT 42.6 % (40.0-50.0); HGB 14.1 g/dL (13.5-17.5); Immature Grans % 0.2; Lymphocytes % 50.2; MCH 32.5 pg (27.0-33.0); MCHC 33.1 % (32.0-36.0); MCV 98.2 fL (80-95); MPV 9.5 fL (8.0-11.0); Monocytes % 6.6; Neutrophils % 39.8; Nucleated RBC 0 %; Platelet Count 196 10^3/uL (130-400); RBC 4.34 10^6/uL (4.36-5.78); RDW 13.8 % (11.8-14.1); RDW-SD 50.4 fL; WBC 6.47 10^3/uL (4.4-10.8)
[2020-04-20 18:07] LABS: INR 0.9 (0.9-1.1); PTT Activated 23.6 sec (21.0-27.5); Prothrombin Time 9.5 sec (9.3-11.0)
[2020-04-20 18:10] LABS: Troponin I < 0.05 ng/mL (<0.06)
--- NOTE | 2020-04-20 18:17 | NUR.NOTE ---
Nursing Note: Upon first contact with pt, pt stating in loud volume, I don't want to go to no scans, I just want to go home. photographic technician present,and this RN updated Dr Blanco of pt's refusal. After speaking with Dr Blanco, pt oriented x 4. Pt does not have ride home. Pt agreeable to scans and medications when return to ED floor. Pt brought to CT via stretcher.
[2020-04-20 18:20] LABS: ALT 20 U/L (16-63); AST 35 U/L (15-37); Albumin 2.7 g/dL (3.4-5.0); Alkaline Phosphatase 127 U/L (46-116); Anion Gap 9.7 mmol/L (3-11); BUN 4 mg/dL (7-18); Bilirubin, Direct < 0.05 mg/dL (0.00-0.20); Bilirubin, Total 0.2 mg/dL (0.2-1.0); CO2 26.3 mmol/L (21.0-32.0); CREATININE 0.8 mg/dL (0.70-1.30); Calcium 7.7 mg/dL (8.5-10.1); Chloride 107 mmol/L (98-107); Glucose 152 mg/dL (74-106); Lipase 128 U/L (73-393); Magnesium 2.2 mg/dL (1.8-2.4); Potassium 3.6 mmol/L (3.5-5.1); Sodium 143 mmol/L (136-145); Total Protein 6.8 g/dL (6.4-8.2)
[2020-04-20 18:21] LABS: ETHANOL BLOOD 366.9 mg/dL (<3)
[2020-04-20] MEDS: Folic Acid 1 MG TAB PO (18:32)
[2020-04-20] MEDS: THIAMINE 100 MG in Normal Saline 100 ML 200 MG IVPB (18:33)
[2020-04-20] MEDS: Omnipaque 350 MG/ML 100 ML BTL IJ (18:33)
[2020-04-20] MEDS: Normal Saline - Diluent 50 ML VIAL IV (18:34)
[2020-04-20] MEDS: Normal Saline Flush 10 ML SYR IVP (18:34)
[2020-04-20] MEDS: Normal Saline 100 ML (18:38)
[2020-04-20 18:43] LABS: Bilirubin Negative (Negative); Blood Negative (Negative); Clarity Clear (Clear); Glucose Negative (Negative); Ketones Negative (Negative); Leukocyte Esterase Negative (Negative); Nitrite Negative (Negative); Specific Gravity 1.015 (1.005-1.025); Urobilinogen 0.2 EU/dL (Up TO 0.2)
--- NOTE | 2020-04-20 19:23 | DI.VRAD_ITS ---
PROCEDURE INFORMATION: Exam: CT Angiography Chest With Contrast Exam date and time: 04/20/2020 6:19 PM Age: 59 years old Clinical indication: Chest pressure; Abdominal pain; Patient HX: Epigastric pain TECHNIQUE: Imaging protocol: Computed tomographic angiography of the chest with contrast. 3D rendering (Not supervised by radiologist): MIP and/or 3D reconstructed images were created by the technologist. Contrast material: OMNPAQUE 350; Contrast volume: 100 ml; Contrast route: INTRAVENOUS (IV); COMPARISON: CT CHEST PE ABD PELVIS W 02/04/2020 4:08 PM FINDINGS: Pulmonary arteries: The central pulmonary arteries opacify normally with contrast without a large pulmonary embolism. Aorta: Mild atherosclerotic calcifications within the thoracic aorta without aneurysm or dissection. Great vessels off aortic arch: The great vessels opacify normally with contrast. Lungs: Mild bronchiectasis. No endobronchial lesion. The lungs are clear without infiltrate or edema. Pleural spaces: No pleural effusion or pneumothorax. Heart: The heart is normal in size. No pericardial effusion. The heart is upper limits of normal in size. No pericardial effusion. No evidence for right heart strain. RV/LV ratio 0.8. Mediastinal space: Mild circumferential wall thickening throughout the esophagus. Lymph nodes: Unremarkable. No enlarged lymph nodes. Bones/joints: Mild degenerative changes throughout the thoracic spine. No acute compression fracture. Soft tissues: Unremarkable. IMPRESSION: 1. No evidence for a thoracic aortic aneurysm or dissection. No large pulmonary embolus. 2. Mild esophagitis. 3. Mild bronchiectasis. No focal pulmonary infiltrate. PROCEDURE INFORMATION: Exam: CT Angiography Abdomen and Pelvis With Contrast Exam date and time: 04/20/2020 6:19 PM Age: 59 years old Clinical indication: Chest pressure; Abdominal pain; Patient HX: Epigastric pain TECHNIQUE: Imaging protocol: Computed tomographic angiography of the abdomen and pelvis with contrast material. 3D rendering (Not supervised by radiologist): MIP and/or 3D reconstructed images were created by the technologist. Contrast material: OMNPAQUE 350; Contrast volume: 100 ml; Contrast route: INTRAVENOUS (IV); COMPARISON: CT CHEST PE ABD PELVIS W 02/04/2020 4:08 PM FINDINGS: Mediastinal space: Mild fluid and stranding is seen surrounding the pancreatic tail extending along the splenic hilum. Aorta: Moderate atherosclerotic calcifications within the abdominal aorta without aneurysm or dissection. Celiac trunk and mesenteric arteries: The celiac, superior mesenteric, inferior mesenteric arteries are widely patent. Renal arteries: Calcific atherosclerotic plaque is seen within the proximal right renal artery resulting in mild, less than 50%, stenosis. Soft and calcific atherosclerotic plaque is seen within the proximal left renal artery resulting in moderate, 50-69%, stenosis. Right iliac arteries: Calcific atherosclerotic plaque is seen within the proximal right common iliac artery resulting in moderate, 50-69%, stenosis. Atherosclerotic plaque is seen throughout the right external and internal iliac arteries resulting in mild, less than 50%, stenosis. Right femoral/popliteal arteries: Soft and calcific atherosclerotic plaque is seen within the right common femoral, profundus femoral, and superficial femoral arteries resulting in mild, less than 50%, stenosis. Left iliac arteries: The calcific atherosclerotic plaque is seen throughout the left common iliac, internal iliac, and external iliac arteries resulting in areas of mild, less 50%, stenosis. Left femoral/popliteal arteries: Atherosclerotic plaque is seen within the left common femoral, superficial femoral, profundus femoral arteries resulting in mild, less than 50%, stenosis. Liver: The liver is mildly enlarged and fatty infiltrated. No liver mass. Gallbladder and bile ducts: The gallbladder is nondistended and demonstrates moderate wall thickening and mild pericholecystic fluid. No calcified gallstones. The common bile duct is mildly prominent measuring 11 mm in diameter. No intrahepatic ductal dilatation. Pancreas: Dense, chunky calcifications are seen within the uncinate process of the pancreas and within the pancreatic body. Several scattered punctate calcifications are seen throughout the remaining pancreas. Significant dilatation of the pancreatic duct is seen throughout the pancreatic tail, body and pancreatic head, with an abrupt transition seen at the level of these calcifications. The pancreatic duct within the pancreatic head measures up to 9 mm. A somewhat ill-defined area of low attenuation surrounds the dense calcifications within the uncinate process, measuring up to 1.3 x 2.3 cm on image 62, series 4. These findings are similar when compared to the prior study and may represent resolving pancreatitis. Spleen: The spleen is normal appearance. Adrenal glands: The bilateral adrenal glands are normal appearance. Kidneys and ureters: The bilateral kidneys are normal appearance. No hydronephrosis. Stomach and bowel: Thickening is seen within the gastric folds and gastric antrum with hyperenhancement of the mucosa. Hyperenhancement of the mucosa in mild wall thickening is also seen throughout the small bowel. Mild wall thickening is seen within the sigmoid colon and rectum. Diverticula are seen throughout the descending and sigmoid colon without evidence for acute diverticulitis. No bowel obstruction. Appendix: No evidence of appendicitis. Intraperitoneal space: No free fluid, free air or abscess. Lymph nodes: Unremarkable. No enlarged lymph nodes. Urinary bladder: The urinary bladder is normal appearance. Reproductive: The prostate gland is mildly enlarged and indents the base of the bladder. Bones/joints: Mild degenerative changes are seen throughout the lumbar spine. Transitional lumbosacral anatomy. No acute compression fracture. Soft tissues: Unremarkable. IMPRESSION: 1. Findings most consistent with an infectious or inflammatory gastroenterocolitis. Diverticulosis without diverticulitis. No bowel obstruction. 2. Unchanged significant of the pancreatic duct, with a transition point seen at the uncinate process where dense calcifications and areas of low attenuation is seen. Mild dilatation of the common bile duct is also seen. Mild fluid in stranding surrounds the pancreatic tail. This fluid is improved when compared to the prior study. Overall, this suggests improving pancreatitis. However, a follow-up MRI/MRCP and/or pancreatic mass protocol CT should be performed in 3-6 months to ensure continued stability and to exclude a developing pancreatic neoplasm. Alternatively, an upper endoscopy/ERCP can also be considered. 3. Moderate wall thickening within the gallbladder with mild pericholecystic fluid. No calcified gallstones. This finding is nonspecific, but could represent developing cholecystitis. If clinically indicated, this can be further evaluated with a right upper quadrant ultrasound. 4. Moderate, 50-69%, stenosis within the origin of the right common iliac artery. Otherwise, no hemodynamically significant stenosis within the remaining arteries. Dictated and Authenticated by: Jessica Webb MD. Ordering:DANG West MD
[2020-04-20 19:36] LABS: Lactate 2.8 mmol/L (0.6-1.4)
--- NOTE | 2020-04-20 20:42 | NUR.NOTE ---
Nursing Note: Pt upset and reports,I am going to leave right this second. Pt explained he may leave if he has ride home. Pt reports no one I know has a car so that's not possible. Pt uses phone to call his fiance. Dr Smith notified and states ok to call [facility] for transport home. Pt alert oriented x 4. Speech clear. Pt updated with this plan. IV taken out.
--- NOTE | 2020-04-20 20:49 | NUR.NOTE ---
Nursing Note: Pt ambulatory steady gait to bathroom. Given cup of water . denies nausea or pain.Pt pleasant sitting on side of bed.
== END 2020-04-20 21:20 | disposition home or self-care (01) ==
PROVIDERS: Emergency Medicine; Emergency Provider Student in an Organized Health Care Education/Training Program; PCP Student in an Organized Health Care Education/Training Program
DX: K29.20 Alcoholic gastritis without bleeding (principal); F10.120 Alcohol abuse with intoxication, uncomplicated; Y90.8 Blood alcohol level of 240 mg/100 ml or more; K52.89 Other specified noninfective gastroenteritis and colitis; Z87.19 Personal history of other diseases of the digestive system
CPT/HCPCS: 71275; 74177; 80053; 83690; 93005; 96361; 96365; 96375; 99285; 80320; 81003; 82248; 83605; 83735; 84484; 85025; 85610; 85730; 93010; 99284; J2405; J3490

== ENCOUNTER 2020-04-30 21:24 | Emergency (ER) | payer MEDICAID, SELFPAY ==
[2020-04-30] VITALS (18 sets, daily range): BP systolic 135–186; BP diastolic 83–92; PULSE 68–118; RESP 12–24; TEMP 36.6; O2SAT 94–99
--- NOTE | 2020-04-30 21:44 | NUR.NOTE ---
Nursing Note: Rectal exam performed by Kinza KLEIN, this RN as witness. Pt had reported I might have had tiny bit of blood in my poop
--- NOTE | 2020-04-30 21:45 | RT.EKG_ITS ---
APPROVED REPORT Exam: Resting ECG Patient Location: E HR:100 bpm ECG Measurements Heart Rate 100 AXIS SC 153 P 75 QRSd 78 QRS -12 QT 335 T 28 QTc 432 Conclusion Sinus tachycardia...rate> 99 Inferior infarct, old...Q >35mS, II III aVF Physician: No STEMI
--- NOTE | 2020-04-30 21:45 | DI.RAD_ITS ---
EXAM: XR CHEST 2V PA LATERAL CLINICAL HISTORY: cough for one month TECHNIQUE: 2D digital imaging was performed. COMPARISON: No exams were available for comparison FINDINGS: MEDIASTINUM: Normal. HEART: Normal. PULMONARY VASCULATURE: Normal. LUNGS: Clear. PLEURAL SPACE: No pleural effusion or pneumothorax. BONE:Within normal limits for the patient's age. OTHER FINDINGS:Normal. IMPRESSION: No acute pulmonary findings. DATA REPOSITORY: RADIATION DOSE DELIVERED:
--- NOTE | 2020-04-30 21:49 | ED.GENADUL_ITS ---
Discharge Plan Disposition Patient Disposition: HOME Condition: Stable Discharge Details Clinical Impression: Alcoholism /alcohol abuse, Alcoholic gastritis Primary Care Provider: Gregoria Perez ED Provider: Kinza Marrero Home Meds and New Rx's Prescriptions: New omeprazole magnesium [Prilosec OTC] 20 mg tablet,delayed release (DR/EC) 20 mg PO DAILY Qty: 60 RF: 0 sucralfate [Carafate] 1 gram tablet 1 g PO BID Qty: 60 RF: 0 Continued Eliquis 5 mg tablet 5 mg PO BID Qty: 60 RF: 0 folic acid 1 mg tablet 1 mg PO DAILY Qty: 30 RF: 0 guaifenesin [Mucinex] 600 mg tablet extended release 12hr 600 mg PO BID PRN (Reason: cough) Qty: 20 RF: 0 Creon 12,000-38,000 -60,000 unit capsule,delayed release(DR/EC) 1 cap PO AC & HS Qty: 120 RF: 0 multivitamin Tablet 1 tab PO DAILY Qty: 30 RF: 0 thiamine HCl (vitamin B1) 100 mg tablet 100 mg PO DAILY Qty: 30 RF: 0 tamsulosin 0.4 mg Capsule 0.8 mg PO DAILY Qty: 30 RF: 0 famotidine [Pepcid] 40 mg tablet 40 mg PO DAILY Qty: 30 RF: 0 Discharge Instructions Instructions: Gastritis (ED) Additional Instructions: If you keep drinking alcohol, your pain will continue and may worsen If you would like to stop drinking alcohol, try cutting down by 1 drink daily until you stop Do not stop drinking abruptly or you will go into alcohol withdrawal which is very serious I recommend taking the Carafate daily Also taking Prilosec Please follow-up with your doctor if scheduled appointment Please return earlier should you have new or worsening complaints I recommend taking Benadryl 25 to 50 mg daily for the next several days You should not receive IV morphine product as you are allergic to them I suspect Recommend 24 to 48-hour recheck with your primary care doctor Medical Decision Making Patient is alert and oriented and, no side stage, ambulatory with steady gait He has had numerous evaluations with MRCP, ultrasound, and CTA abdomen and pelvis which did not show acute pathology . Patient likely has gastritis secondary to alcohol consumption He is alert throughout the encounter and pleasant in demeanor He did have an allergic reaction at approximately 1032 and expect 3 morphine at this Medication was ministered 25 of Benadryl was applied for an area of urticarial rash on his left forearm is approximately 8 inches he does not have evidence of generalized allergic reaction He has a patent airway and is not hypoxic He was given Benadryl and a dose of Decadron as he has not a dependable patient and I am concerned he may develop escalation of symptoms although he will be observed for over an hour should be sure that his symptoms do not exacerbate He is aware that his alcohol is likely contributing to his pain, we talked about detox and offered resources Diagnostic labs are within normal limits for patient I reviewed his CTA from the and this does not show acute pathology I also reviewed the note from his emergency room visit Patient will be discharged home He actually has an appointment scheduled with In April Differential Diagnosis Differential Diagnosis: Pancreatic pseudocyst, pancreatitis, hepatitis, gastritis Medical Records Medical records reviewed: Yes I reviewed the patient's medical records. Lab Data Lab results reviewed: Yes I reviewed the patient's lab results. HPI This 59-year-old male with history of alcoholic gastritis, common bile duct dilation, hypomagnesemia, alcoholic gastritis, DVT, presents with nausea, diarrhea, cough for the past month. He states that he has abdominal pain but has been worsening. History of similar pain over these experienced in the past several months. He also states he has had some intermittent blood in his stool. He is still drinking daily. He states he last had alcohol this morning, 2 beers. He states he has no history of alcohol withdrawal.. Patient denies any chest pain, shortness of breath. General Date/Time Provider Initiated Documentation: 04/30/20 21:25 . Related Data Home Medications Medication Instructions Recorded Confirmed Creon 1 cap PO AC & HS #120 cap 01/28/20 04/17/20 Eliquis 5 mg PO BID #60 tab 01/28/20 04/30/20 folic acid 1 mg PO DAILY #30 tab 01/28/20 04/30/20 guaifenesin [Mucinex] 600 mg PO BID PRN #20 tab 01/28/20 04/30/20 multivitamin 1 tab PO DAILY #30 tab 01/28/20 04/30/20 thiamine HCl (vitamin B1) 100 mg PO DAILY #30 tab 01/28/20 04/30/20 tamsulosin 0.8 mg PO DAILY #30 cap 02/07/20 04/30/20 famotidine [Pepcid] 40 mg PO DAILY #30 tab 04/19/20 04/30/20 omeprazole magnesium [Prilosec OTC] 20 mg PO DAILY #60 tab 04/30/20 sucralfate [Carafate] 1 g PO BID #60 tab 04/30/20 Previous Rx's Medication Instructions Recorded Creon 1 cap PO AC & HS #120 cap 01/28/20 Eliquis 5 mg PO BID #60 tab 01/28/20 folic acid 1 mg PO DAILY #30 tab 01/28/20 guaifenesin [Mucinex] 600 mg PO BID PRN #20 tab 01/28/20 multivitamin 1 tab PO DAILY #30 tab 01/28/20 thiamine HCl (vitamin B1) 100 mg PO DAILY #30 tab 01/28/20 tamsulosin 0.8 mg PO DAILY #30 cap 02/07/20 famotidine [Pepcid] 40 mg PO DAILY #30 tab 04/19/20 omeprazole magnesium [Prilosec OTC] 20 mg PO DAILY #60 tab 04/30/20 sucralfate [Carafate] 1 g PO BID #60 tab 04/30/20 Allergies Allergy/AdvReac Type Severity Reaction Status Date / Time Opioids - Morphine Analogues Allergy Mild urticaria Verified 04/30/20 22:39 Penicillins Allergy Unverified 02/04/20 14:55 General Stated Complaint: Abd Prob DMITRI: 3 Review of Systems Narrative: Review of systems negative x7 aside from where indicated in HPI [facility] Medical History Alcohol withdrawal ARDS (adult respiratory distress syndrome) Aspiration pneumonia COVID-19 ruled out by laboratory testing HTN (hypertension) Hx of hyperlipidemia Myocardial infarction x 2 Pancreatitis Pancreatitis, chronic Presence of pancreatic duct stent (~01/2018) Sean Sears Surgical History S/P ERCP (~01/2018) Sean Sears Family History Mother Alcohol abuse Father Alcohol abuse Social History (Reviewed 04/19/20 @ 20:37 by DERRICK Sanchez Smoking/Tobacco Use Status: Current every day Tobacco Type: cigarettes Smoking packs per day: 1 Smoking cigarettes per day: 20.0 Smoking risk assessment performed?: Yes Alcohol Intake: current Alcohol Intake frequency: 3 or more drinks per day Alcohol type: beer Drug use: Occasionally Substance use type: marijuana Details: no IV drug use Housing: apartment Do you feel safe at home: Yes Do you feel safe in your relationship?: Yes Exam Const General: cooperative Orientation: oriented x3 HENMT Other: No visible evidence of trauma, uvula midline Eyes Pupils: PERRL Chest Chest: normal inspection of the chest Resp Effort & Inspection: normal respiratory effort Auscultation: clear to auscultation bilaterally Cardio Rate: regular rate and tachycardic Rhythm: regular rhythm GI Inspection: normal to inspection Other: Mild diffuse tenderness without rebound or guarding, no visible sign of trauma, no abdominal bruit or pulsatile mass Other: Guaiac negative stool Skin General skin exam: no rashes or lesions noted Neuro General: patient alert and patient oriented x3 Course Vital Signs Vital signs: Vital Signs Temperature 36.6 C 04/30/20 21:27 Pulse 101 H 04/30/20 21:27 Respiratory Rate 15 04/30/20 21:27 Blood Pressure 186/92 H 04/30/20 21:27 Pulse Oximetry 99 04/30/20 21:27 Temperature 36.6 C 04/30/20 21:27 Temperature Source Tympanic 04/30/20 21:27 Pulse 101 H 04/30/20 21:27 Respiratory Rate 15 04/30/20 21:27 Blood Pressure 186/92 H 04/30/20 21:27 Blood Pressure Position Sitting 04/30/20 21:27 Pulse Oximetry 99 04/30/20 21:27 Oxygen Delivery Method Room Air 04/30/20 21:27 Oxygen Flow Rate 0 04/30/20 21:27 Pain Level 10 04/30/20 21:39
[2020-04-30 22:18] LABS: Abs Immature Grans 0.01 10^3/uL (0.0-0.06); Absolute Basophil Count 0.04 10^3/uL (0.0-0.2); Absolute Eosinophil Count 0.09 10^3/uL (0.0-0.7); Absolute Lymphocyte Count 2.32 10^3/uL (1.2-3.4); Absolute Monocyte Count 0.42 10^3/uL (0.1-0.8); Absolute Neutrophil Count 1.52 10^3/uL (1.2-6.7); Basophils % 0.9; HCT 42.3 % (40.0-50.0); HGB 14.3 g/dL (13.5-17.5); Immature Grans % 0.2; Lymphocytes % 52.7; MCH 31.9 pg (27.0-33.0); MCHC 33.8 % (32.0-36.0); MCV 94.4 fL (80-95); MPV 9.1 fL (8.0-11.0); Monocytes % 9.5; Neutrophils % 34.7; Nucleated RBC 0 %; Platelet Count 229 10^3/uL (130-400); RBC 4.48 10^6/uL (4.36-5.78); RDW 13.5 % (11.8-14.1)
[2020-04-30] MEDS: MORPHine 10 MG/ML VIAL 6 MG IVP (22:23)
[2020-04-30 22:28] LABS: Magnesium 2.2 mg/dL (1.8-2.4)
[2020-04-30 22:36] LABS: ALT 23 U/L (16-63); AST 47 U/L (15-37); Albumin 2.8 g/dL (3.4-5.0); Alkaline Phosphatase 128 U/L (46-116); Anion Gap 10.7 mmol/L (3-11); BUN 4 mg/dL (7-18); Bilirubin, Total 0.3 mg/dL (0.2-1.0); CO2 24.3 mmol/L (21.0-32.0); CREATININE 0.6 mg/dL (0.70-1.30); Calcium 7.9 mg/dL (8.5-10.1); Chloride 107 mmol/L (98-107); ETHANOL BLOOD 197.6 mg/dL (<3); Glucose 108 mg/dL (74-106); Lipase 142 U/L (73-393); Magnesium 2.1 mg/dL (1.8-2.4); Potassium 3.5 mmol/L (3.5-5.1); Sodium 142 mmol/L (136-145); Total Protein 6.8 g/dL (6.4-8.2)
[2020-04-30 22:38] LABS: Troponin I < 0.05 ng/mL (<0.06)
[2020-04-30] MEDS: diphenhydrAMINE 50 MG/ML VIAL 25 MG IVP ×2 (22:42→23:16)
[2020-04-30] MEDS: diphenhydrAMINE 50 MG/ML VIAL (22:45)
[2020-04-30] MEDS: Normal Saline 1,000 ML 1000 ML IV (22:46)
--- NOTE | 2020-04-30 22:49 | NUR.NOTE ---
Nursing Note: Pt return to ED from radiology, This RN made aware that pt left AC region has redness. This is not noted to be present prior to going to radiology. Reports no SOB. Redness localized to inner left forearm above IV site. Pt received morphine just prior to radiology , given by Grisel DEWITT. Pt denies hx of allergic reactions to morphine. EDP Kinza KLEIN brought to room to assess, see APR. GCS 15. Pt on full cardiac monitoring. call light within reach. Allergy list updated by LATOYA Echols
--- NOTE | 2020-04-30 22:55 | DI.VRAD_ITS ---
PROCEDURE INFORMATION: Exam: XR Chest Exam date and time: 04/30/2020 10:33 PM Age: 59 years old Clinical indication: Other: Cough for one month TECHNIQUE: Imaging protocol: XR of the chest Views: 2 views. COMPARISON: CT CHEST/ABD/PEL W 03/02/2020 11:32 PM FINDINGS: Lungs: Unremarkable. No consolidation. Pleural spaces: Unremarkable. No pleural effusion. No pneumothorax. Heart/Mediastinum: Unremarkable. No cardiomegaly. Bones/joints: Degenerative changes in the spine. IMPRESSION: No acute finding. Dictated and Authenticated by: Andrey Liang MD. Ordering:PATRICIA Echols MD
[2020-04-30] MEDS: Dexamethasone 10 MG/ML VIAL IVP (23:15)
[2020-04-30] MEDS: Sucralfate 1 GM TAB PO (23:16)
--- NOTE | 2020-04-30 23:19 | NUR.NOTE ---
Nursing Note: redness swelling to left forearm decreased noticeably. Pt reports hardly any burning now. Pt able to speak in complete sentences without difficulty. Pt reports no other concerns at this time. Remains on full cardiac monitoring. updated that [facility] called, per ok by Kinza KLEIN.
== END 2020-05-01 00:20 | disposition home or self-care (01) ==
PROVIDERS: Emergency Provider Physician Assistant; PCP Student in an Organized Health Care Education/Training Program
DX: K29.20 Alcoholic gastritis without bleeding (principal); F10.229 Alcohol dependence with intoxication, unspecified; Y90.6 Blood alcohol level of 120-199 mg/100 ml; L50.0 Allergic urticaria; T40.2X5A Adverse effect of other opioids, initial encounter; Z03.818 Encounter for observation for suspected exposure to other biological agents ruled out
CPT/HCPCS: 36415; 80053; 83690; 93005; 96361; 96374; 96375; 99285; 71046; 80320; 83735; 84484; 85025; 93010; 99284; J1100; J1200; J2270

== ENCOUNTER 2020-05-05 17:55 | Emergency (ER) | payer MEDICAID, SELFPAY ==
[2020-05-05] VITALS (20 sets, daily range): BP systolic 135–180; BP diastolic 86–110; PULSE 82–98; RESP 10–28; TEMP 36.8–37.1; O2SAT 96–100
--- NOTE | 2020-05-05 18:14 | ED.GENADUL_ITS ---
Discharge Plan Disposition Patient Disposition: HOME Condition: Stable Discharge Details Clinical Impression: Alcoholism /alcohol abuse, Abdominal pain, Hypokalemia Primary Care Provider: Gregoria Perez ED Provider: Brett Blanco Home Meds and New Rx's Prescriptions: Continued Eliquis 5 mg tablet 5 mg PO BID Qty: 60 RF: 0 folic acid 1 mg tablet 1 mg PO DAILY Qty: 30 RF: 0 guaifenesin [Mucinex] 600 mg tablet extended release 12hr 600 mg PO BID PRN (Reason: cough) Qty: 20 RF: 0 Creon 12,000-38,000 -60,000 unit capsule,delayed release(DR/EC) 1 cap PO AC & HS Qty: 120 RF: 0 multivitamin Tablet 1 tab PO DAILY Qty: 30 RF: 0 thiamine HCl (vitamin B1) 100 mg tablet 100 mg PO DAILY Qty: 30 RF: 0 tamsulosin 0.4 mg Capsule 0.8 mg PO DAILY Qty: 30 RF: 0 famotidine [Pepcid] 40 mg tablet 40 mg PO DAILY Qty: 30 RF: 0 omeprazole magnesium [Prilosec OTC] 20 mg tablet,delayed release (DR/EC) 20 mg PO DAILY Qty: 60 RF: 0 sucralfate [Carafate] 1 gram tablet 1 g PO BID Qty: 60 RF: 0 Discharge Instructions Instructions: Hypokalemia (ED), Abuse of Alcohol (ED) Additional Instructions: your potassium was low on your lab work today, try to increase your dietary intake of potassium and have your levels rechecked with your primary care provider if you have fevers, persistent vomit or feel more ill return to the emergency department for reevaluation Discharge Data Discharge Date/Time-TO BE ENTERED AT DEPARTURE: 05/05/20 21:21 Medical Decision Making <Todd Brothers MD - Last Filed: 05/17/20 21:36> 1828??59-year-old male with history of alcoholism, chronic pancreatitis, here with severe diffuse abdominal pain for the past 4 days. Patient is diffusely tender. Consider pancreatic abscess versus exacerbation of chronic pancreatitis. Will give IVF. Patient has opioid allergy listed. I will give subdissociative dose of ketamine IV for pain. Plan to obtain CT of the abdomen pelvis to assess for acute surgical pathology. <Brett Blanco MD - Last Filed: 05/05/20 21:06> Pt ambulating on his own with steady gait. CT shows continued minor peripancreatic edema likely from daily heavy alcohol use with normal lipse. He has no abdominal tenderness now, caox4 with no slurred speech and is clinically sober requesting d/c. He was advised that ceasing alcohol use would cause his pain to significantly decrease if not go away completely, but stated I'm not going to stop drinking. I am placing him on our follow up list to see his pcp susanne for chronic abdominal pain and alcohol abuse, return precautions given. His ct did show distended bladder, he has hx of urinary retention and was able to urinate and completely empty his bladder after ct Medical Records Medical records reviewed: Yes I reviewed the patient's medical records. Imaging Data Radiologic Study: Attestation: I personally reviewed and interpreted this imaging study as follows: Imaging: CT Scan Radiologist's impression: IMPRESSION: 1. Similar minor peripancreatic edema. Potential mild acute on chronic pancreatitis. Additional findings as above. 2. Redemonstration of a markedly distended urinary bladder. 3. Additional findings as described HPI <Todd Brothers MD - Last Filed: 05/17/20 21:36> General Mode of arrival: ambulatory . Date/Time Provider Initiated Documentation: 05/05/20 18:02 . Limitations to Documentation: no limitations . Information obtained by: patient . HPI Narrative: 59-year-old male with history of alcohol abuse, chronic pancreatitis, here with 4 days of worsening and persistent mid to upper abdominal pain consistent with prior exacerbations of pa ncreatitis. Pain is severe. Constant now. No modifiers. Denies associated vomiting. Patient notes he continues to consume alcohol and had a beer today to treat the pain. Related Data Home Medications Medication Instructions Recorded Confirmed Creon 1 cap PO AC & HS #120 cap 01/28/20 04/17/20 Eliquis 5 mg PO BID #60 tab 01/28/20 04/30/20 folic acid 1 mg PO DAILY #30 tab 01/28/20 05/05/20 guaifenesin [Mucinex] 600 mg PO BID PRN #20 tab 01/28/20 05/05/20 multivitamin 1 tab PO DAILY #30 tab 01/28/20 05/05/20 thiamine HCl (vitamin B1) 100 mg PO DAILY #30 tab 01/28/20 05/05/20 tamsulosin 0.8 mg PO DAILY #30 cap 02/07/20 04/30/20 famotidine [Pepcid] 40 mg PO DAILY #30 tab 04/19/20 05/05/20 omeprazole magnesium [Prilosec OTC] 20 mg PO DAILY #60 tab 04/30/20 sucralfate [Carafate] 1 g PO BID #60 tab 04/30/20 Previous Rx's Medication Instructions Recorded Creon 1 cap PO AC & HS #120 cap 01/28/20 Eliquis 5 mg PO BID #60 tab 01/28/20 folic acid 1 mg PO DAILY #30 tab 01/28/20 guaifenesin [Mucinex] 600 mg PO BID PRN #20 tab 01/28/20 multivitamin 1 tab PO DAILY #30 tab 01/28/20 thiamine HCl (vitamin B1) 100 mg PO DAILY #30 tab 01/28/20 tamsulosin 0.8 mg PO DAILY #30 cap 02/07/20 famotidine [Pepcid] 40 mg PO DAILY #30 tab 04/19/20 omeprazole magnesium [Prilosec OTC] 20 mg PO DAILY #60 tab 04/30/20 sucralfate [Carafate] 1 g PO BID #60 tab 04/30/20 Allergies Allergy/AdvReac Type Severity Reaction Status Date / Time Opioids - Morphine Analogues Allergy Mild urticaria Verified 05/05/20 18:00 Penicillins Allergy Unverified 05/05/20 18:00 General Stated Complaint: Abd Prob DMITRI: 3 Review of Systems <Todd Brothers MD - Last Filed: 05/17/20 21:36> All systems reviewed & are unremarkable except as noted in HPI and below Constitutional Constitutional: Denies fever(s) Gastrointestinal Gastrointestinal: Reports as per HPI PFSH <Todd Brothers MD - Last Filed: 05/17/20 21:36> Medical History Alcohol withdrawal ARDS (adult respiratory distress syndrome) Aspiration pneumonia COVID-19 ruled out by laboratory testing HTN (hypertension) Hx of hyperlipidemia Myocardial infarction x 2 Pancreatitis Pancreatitis, chronic Presence of pancreatic duct stent (~01/2018) Steffanie Sears. Surgical History S/P ERCP (~01/2018) Sean Sears Family History Mother Alcohol abuse Father Alcohol abuse Social History Smoking/Tobacco Use Status: Current every day Tobacco Type: cigarettes Smoking packs per day: 1 Smoking cigarettes per day: 20.0 Smoking risk assessment performed?: Yes Alcohol Intake: current Alcohol Intake frequency: 3 or more drinks per day Alcohol type: beer Drug use: Occasionally Substance use type: marijuana Details: no IV drug use Housing: apartment Do you feel safe at home: Yes Do you feel safe in your relationship?: Yes Exam <Todd Brothers MD - Last Filed: 05/17/20 21:36> Const General: cooperative and no acute distress HENMT Mouth: moist mucous membranes Eyes Conjunctivae: normal conjunctivae Sclera: normal sclerae Neck Neck: trachea midline and supple Resp Auscultation: clear to auscultation bilaterally, no rales, no rhonchi and no wheezes Cardio Jugular venous pressure: no JVD Rate: regular rate and not tachycardic Rhythm: regular rhythm GI Palpation: soft, not firm, no guarding, no masses, not rigid and tender (Diffuse) Skin General skin exam: no rashes or lesions noted Neuro General: patient alert, patient awake, patient oriented x3 and tone normal Extrem General: no edema Psych Appearance: grossly normal Mental Status: mental status grossly normal Speech and Movement: speech and movement normal Course <Todd Brothers MD - Last Filed: 05/17/20 21:36> Vital Signs Vital signs: Vital Signs Temperature 37.1 C 05/05/20 17:57 Pulse 98 H 05/05/20 17:57 Respiratory Rate 20 05/05/20 17:57 Blood Pressure 157/86 H 05/05/20 17:57 Pulse Oximetry 98 05/05/20 17:57 Temperature 37.1 C 05/05/20 17:57 Temperature Source Skin 05/05/20 17:57 Pulse 98 H 05/05/20 17:57 Respiratory Rate 20 05/05/20 17:57 Respiratory Effort 05/05/20 18:02 Blood Pressure 157/86 H 05/05/20 17:57 Blood Pressure Position Sitting 03/14/21 17:57 Pulse Oximetry 98 05/05/20 17:57 Oxygen Delivery Method Room Air 05/05/20 17:57 Oxygen Flow Rate 0 05/05/20 17:57 Pain Level 10 05/05/20 17:57 Sign Out <Todd Brothers MD - Last Filed: 05/17/20 21:36> Sign Out Data: Sign Out Comment: Patient has history of alcoholism and chronic intermittent pancreatitis, here with abdominal pain. Lipase is normal. Patient received ketamine subdissociative dose for pain. CT pending at time of signout. Please see my documentation regarding initial ED presentation and course. Plan at signout is to follow-up CT and reassess patient for disposition. Last updated by Todd Brothers MD at 05/05/20 20:15
[2020-05-05 18:32] LABS: Abs Immature Grans 0.01 10^3/uL (0.0-0.06); Absolute Basophil Count 0.03 10^3/uL (0.0-0.2); Absolute Eosinophil Count 0.06 10^3/uL (0.0-0.7); Absolute Lymphocyte Count 2.48 10^3/uL (1.2-3.4); Absolute Monocyte Count 0.44 10^3/uL (0.1-0.8); Absolute Neutrophil Count 2.06 10^3/uL (1.2-6.7); Basophils % 0.6; Eosinophils % 1.2; HCT 43.9 % (40.0-50.0); HGB 14.8 g/dL (13.5-17.5); Immature Grans % 0.2; Lymphocytes % 48.8; MCH 31.4 pg (27.0-33.0); MCHC 33.7 % (32.0-36.0); MCV 93.2 fL (80-95); MPV 9.3 fL (8.0-11.0); Monocytes % 8.7; Neutrophils % 40.5; Nucleated RBC 0 %; Platelet Count 229 10^3/uL (130-400); RBC 4.71 10^6/uL (4.36-5.78); RDW 13.4 % (11.8-14.1); RDW-SD 46.1 fL; WBC 5.08 10^3/uL (4.4-10.8)
[2020-05-05] MEDS: Ketamine 500 MG/10 ML VIAL 10 MG IVP (18:39)
[2020-05-05] MEDS: Normal Saline 1,000 ML 1000 ML IV (18:39)
[2020-05-05] MEDS: Normal Saline 50 ML 200 ML (18:40)
[2020-05-05 18:47] LABS: ETHANOL BLOOD 221.6 mg/dL (<3)
[2020-05-05 18:55] LABS: ALT 24 U/L (16-63); AST 31 U/L (15-37); Albumin 2.9 g/dL (3.4-5.0); Alkaline Phosphatase 128 U/L (46-116); Anion Gap 12.6 mmol/L (3-11); BUN 5 mg/dL (7-18); Bilirubin, Total 0.3 mg/dL (0.2-1.0); CO2 24.4 mmol/L (21.0-32.0); CREATININE 0.7 mg/dL (0.70-1.30); Calcium 8.2 mg/dL (8.5-10.1); Chloride 106 mmol/L (98-107); Glucose 129 mg/dL (74-106); Lipase 183 U/L (73-393); Magnesium 2.3 mg/dL (1.8-2.4); Sodium 143 mmol/L (136-145); Troponin I < 0.05 ng/mL (<0.06)
--- NOTE | 2020-05-05 19:45 | DI.CT_ITS ---
EXAM: CT ABDOMEN PELVIS W CLINICAL HISTORY: abd pain, h/o pancreatitis. TECHNIQUE: Imaging Protocol: Axial computed tomography images with coronal and sagittal reformatted images were created and reviewed CONTRAST MATERIAL: Intravenous: Omnipaque 100cc Oral: None COMPARISON: CT CT THORAX ABD/PEL CTA from 04/20/2020 FINDINGS: VISUALIZED LUNG BASES: No nodules nor pleural effusions evident. ABDOMEN: There is no ascites. LIVER: There are no obvious focal hepatic lesions evident . GALLBLADDER/BILIARY: No obvious gallbladder pathology. CBD is not dilated. PANCREAS: Calcification in the pancreatic head-uncinate process is again noted (no calcification in t he nondilated CBD). The pancreatic duct is slightly prominent in size, similar to previous. Other s maller parenchymal calcifications are noted towards the pancreatic tail. There is mild streaking natividad und the tail again noted. No formed pseudocyst. SPLEEN: Spleen is not enlarged. No obvious intrasplenic lesions. Splenic and portal veins are paten t. ADRENALS: There are no significant adrenal masses. KIDNEYS:No cysts evident. No solid renal masses. No calculi nor hydronephrosis.. ABDOMINAL AORTA: Abdominal aorta is calcified but not enlarged. LYMPH NODES:There is no retroperitineal nor paraaortic adenopathy. ABDOMINAL WALL/GI: No evidence of significant anterior abdominal wall hernia. No bowel obstruction. PELVIS: GI: No evidence of appendicitis.Sigmoid is redundant with diverticuli. No obvious acute diverticulit is. LYMPH NODES: There is no intrapelvic nor inguinal adenopathy. REPRODUCTIVE: Prostate is slightly enlarged. URINARY BLADDER: The urinary bladder is grossly distended, similar to previous. It reaches up out of the pelvis. OSSEOUS: No significant osseous lesions. IMPRESSION: 1. Compared to the CT scan of 04/20/2020 there are again noted multiple calcifications within the par enchyma of the pancreas, the largest being at the head-uncinate process region and with dilatation of the pancreatic duct proximal to this out to the level of the tail where there is some peripancreatic streaking again noted. There is, however, no formed pseudocyst. If clinically indicated MR are on I/MRCP can be performed to help determine if there is a possible underlying pancreatic lesion or duct al stricture. 2. Grossly distended urinary bladder is again noted. 3. No lymphadenopathy nor generalized ascites. 4. Sigmoid diverticulosis. No obvious acute diverticulitis. RADIATION DOSE DELIVERED: 839.38mGy.cm Total DLP DATA REPOSITORY: All CT scans at this facility are submitted to the National Radiology Data Registry (NRDR) Dose Index Registry (DIR) with the [employer] ([employer]). RADIATION OPTIMIZATION: All CT scans at this facility use at least one of these dose optimization te chniques: automated exposure control; mA and/or kV adjustment per patient size (includes targeted exa ms where dose is matched to clinical indication); or iterative reconstruction.
[2020-05-05] MEDS: Normal Saline - Diluent 50 ML VIAL IV (20:28)
[2020-05-05] MEDS: Omnipaque 350 MG/ML 100 ML BTL IJ (20:28)
[2020-05-05] MEDS: Normal Saline Flush 10 ML SYR IVP (20:29)
[2020-05-05] MEDS: POTASSIUM CHLORIDE 20 MEQ/100 ML BAG 50 MEQ IVPB (20:35)
[2020-05-05] MEDS: Potassium Chloride 20 MEQ TABCR PO (20:35)
--- NOTE | 2020-05-05 20:45 | DI.VRAD_ITS ---
PROCEDURE INFORMATION: Exam: CT Abdomen And Pelvis With Contrast Exam date and time: 05/05/2020 20:12 Age: 59 years old Clinical indication: Abdominal pain; Generalized TECHNIQUE: Imaging protocol: Computed tomography of the abdomen and pelvis with contrast. Radiation optimization: All CT scans at this facility use at least one of these dose optimization techniques: automated exposure control; mA and/or kV adjustment per patient size (includes targeted exams where dose is matched to clinical indication); or iterative reconstruction. Contrast material: OMNIPAQUE 350; Contrast volume: 100 ml; Contrast route: INTRAVENOUS (IV); COMPARISON: CT ABDOMEN PELVIS W 04/17/2020 19:08 FINDINGS: Liver: No mass. Gallbladder and bile ducts: No calcified stones. No ductal dilation. Pancreas: Coarse calcification in the uncinate process of the pancreas is stable compared to prior additional small calcifications in ductal dilation are similar and the findings are most suggestive the sequelae of chronic pancreatitis. Minor linear edema along the tail of the pancreas is stable. These findings could be better assessed with MRI if clinically indicated and to rule out underlying pancreatic lesion and or ductal stricture relating to prior pancreatitis. Minor edema is again seen around the proximal pancreas. Spleen: No splenomegaly or focal lesions. Adrenal glands: No mass. Kidneys and ureters: No hydronephrosis. No renal masses. Stomach and bowel: Colonic diverticulosis without diverticulitis. No focal pathology in the small bowel. Appendix: No evidence of appendicitis. Intraperitoneal space: No free air. No significant fluid collection. Vasculature: Atherosclerosis. Lymph nodes: No significantly enlarged lymph nodes. Urinary bladder: Redemonstration of a markedly distended urinary bladder. Probable small diverticula in the urinary bladder. Reproductive: Unremarkable as visualized. Bones/joints: The bones are demineralized. Degenerative changes in the spine. No acute fracture or subluxation. Soft tissues: No suspicious lesions. IMPRESSION: 1. Similar minor peripancreatic edema. Potential mild acute on chronic pancreatitis. Additional findings as above. 2. Redemonstration of a markedly distended urinary bladder. 3. Additional findings as described. Dictated and Authenticated by: Evelyn Up MD. Ordering:PATRICIA Brooks MD
== END 2020-05-05 21:21 | disposition home or self-care (01) ==
PROVIDERS: Student in an Organized Health Care Education/Training Program; Emergency Provider Emergency Medicine; PCP Student in an Organized Health Care Education/Training Program
DX: R10.10 Upper abdominal pain, unspecified (principal); F10.220 Alcohol dependence with intoxication, uncomplicated; Y90.7 Blood alcohol level of 200-239 mg/100 ml; E87.6 Hypokalemia
CPT/HCPCS: 36415; 80053; 83690; 96361; 96365; 96375; 99285; 74177; 80320; 83735; 84484; 85025; 99284; J3480; J3490

== ENCOUNTER 2020-05-13 22:47 | Emergency (ER) | payer MEDICAID, SELFPAY ==
[2020-05-13 22:47] VITALS: BP 146/77; PULSE 105; RESP 20; TEMP 36.5; O2SAT 97
--- NOTE | 2020-05-13 23:04 | ED.GENADUL_ITS ---
Discharge Plan Disposition Patient Disposition: AGAINST MEDICAL ADVICE Condition: Stable Discharge Details Clinical Impression: Alcoholism /alcohol abuse, Abdominal pain Primary Care Provider: Gregoria Perez ED Provider: Brett Blanco Home Meds and New Rx's Prescriptions: Continued Eliquis 5 mg tablet 5 mg PO BID Qty: 60 RF: 0 folic acid 1 mg tablet 1 mg PO DAILY Qty: 30 RF: 0 guaifenesin [Mucinex] 600 mg tablet extended release 12hr 600 mg PO BID PRN (Reason: cough) Qty: 20 RF: 0 Creon 12,000-38,000 -60,000 unit capsule,delayed release(DR/EC) 1 cap PO AC & HS Qty: 120 RF: 0 multivitamin Tablet 1 tab PO DAILY Qty: 30 RF: 0 thiamine HCl (vitamin B1) 100 mg tablet 100 mg PO DAILY Qty: 30 RF: 0 tamsulosin 0.4 mg Capsule 0.8 mg PO DAILY Qty: 30 RF: 0 famotidine [Pepcid] 40 mg tablet 40 mg PO DAILY Qty: 30 RF: 0 omeprazole magnesium [Prilosec OTC] 20 mg tablet,delayed release (DR/EC) 20 mg PO DAILY Qty: 60 RF: 0 sucralfate [Carafate] 1 gram tablet 1 g PO BID Qty: 60 RF: 0 Discharge Instructions Instructions: Abuse of Alcohol (ED) Additional Instructions: If you continue to drink everyday you likely will from your alcohol abuse especially at the levels you have been drinking call [facility] if you need assistance with your alcohol use follow up with your primary care provider as soon as possible and also call the detox centers if you would like assistance coming off of alcohol if you feel more ill, have fevers or persistent vomit return to the emergency department Medical Decision Making 60 yo male with hx of chronic pancreatitis secondary to alcohol abuse comes in with ems with several days of abdominal pain similar to prior episodes of his chronic pancreatitis per the patient. Denies any vomit, fevers, chills, chest pain. He has had two beers today per the patient and denies drug use. HE arrives hemodynamically stable in no distress, caox4 without slurred speech and is clinically sober. He has mild tenderness to the mid abdomen without guarding or rebound. He states he wants something strong for pain and I advised given his frequent visits and chronic pain I'd prefer to start with iv tylenol and labs/imaging to evaluate for pancreatitis and surgical pathology. He declines to have this done and is requesting d/c. He has the capacity to make his own decisions and understands risks of missing acute pancreatitis and surgical pathology such as sbo and abscess including and permanent disability and is willing to accept these risks. He is leaving against my medical advise. He states he wants to go home and drink alcohol. I did advise at his current rate of alcohol abuse that he likely will from alcohol use and this seemed like new information to him and was interested in resources to try and stop drinking. He was given information on detox facilities he can call as well as the number to [facility]. He understands he can changes his mind at any time and return to the emergency department for reevaluation Differential Diagnosis Differential Diagnosis: alcohol abuse, pancreatitis, hepatitis Medical Records Medical records reviewed: Yes I reviewed the patient's medical records. HPI General Mode of arrival: EMS . Date/Time Provider Initiated Documentation: 05/13/20 22:54 . Limitations to Documentation: no limitations . Information obtained by: patient . History of Present Illness 60 year old M presents to the emergency department with the chief complaint of abdominal pain, described as moderate, and it has been constant. No relieving factors improve symptom(s), No exacerbating factors reported . Patient notes no other symptoms.. Patient did receive the following treatments prior to arrival, none Related Data Home Medications Medication Instructions Recorded Confirmed Creon 1 cap PO AC & HS #120 cap 01/28/20 04/17/20 Eliquis 5 mg PO BID #60 tab 01/28/20 04/30/20 folic acid 1 mg PO DAILY #30 tab 01/28/20 05/05/20 guaifenesin [Mucinex] 600 mg PO BID PRN #20 tab 01/28/20 05/05/20 multivitamin 1 tab PO DAILY #30 tab 01/28/20 05/05/20 thiamine HCl (vitamin B1) 100 mg PO DAILY #30 tab 01/28/20 05/05/20 tamsulosin 0.8 mg PO DAILY #30 cap 02/07/20 04/30/20 famotidine [Pepcid] 40 mg PO DAILY #30 tab 04/19/20 05/05/20 omeprazole magnesium [Prilosec OTC] 20 mg PO DAILY #60 tab 04/30/20 sucralfate [Carafate] 1 g PO BID #60 tab 04/30/20 Previous Rx's Medication Instructions Recorded Creon 1 cap PO AC & HS #120 cap 01/28/20 Eliquis 5 mg PO BID #60 tab 01/28/20 folic acid 1 mg PO DAILY #30 tab 01/28/20 guaifenesin [Mucinex] 600 mg PO BID PRN #20 tab 01/28/20 multivitamin 1 tab PO DAILY #30 tab 01/28/20 thiamine HCl (vitamin B1) 100 mg PO DAILY #30 tab 01/28/20 tamsulosin 0.8 mg PO DAILY #30 cap 02/07/20 famotidine [Pepcid] 40 mg PO DAILY #30 tab 04/19/20 omeprazole magnesium [Prilosec OTC] 20 mg PO DAILY #60 tab 04/30/20 sucralfate [Carafate] 1 g PO BID #60 tab 04/30/20 Allergies Allergy/AdvReac Type Severity Reaction Status Date / Time Opioids - Morphine Analogues Allergy Mild urticaria Verified 05/05/20 18:00 Penicillins Allergy Unverified 05/05/20 18:00 General Stated Complaint: Abd Prob DMITRI: 4 Review of Systems All systems reviewed & are unremarkable except as noted in HPI and below Constitutional Constitutional: Denies chills, Denies fever(s) and Denies weakness Cardiovascular Cardiovascular: Denies chest pain and Denies dyspnea Respiratory Respiratory: Denies cough and Denies dyspnea Gastrointestinal Gastrointestinal: Denies nausea and Denies vomiting Musculoskeletal Musculoskeletal: Denies joint swelling Neurologic Neurologic: Denies weakness Psychiatric Psychiatric: Denies depression [facility] Medical History Alcohol withdrawal ARDS (adult respiratory distress syndrome) Aspiration pneumonia COVID-19 ruled out by laboratory testing HTN (hypertension) Hx of hyperlipidemia Myocardial infarction x 2 Pancreatitis Pancreatitis, chronic Presence of pancreatic duct stent (~01/2018) Steffanie Sears. Surgical History S/P ERCP (~01/2018) Steffanie Sears. Family History Mother Alcohol abuse Father Alcohol abuse Social History Smoking/Tobacco Use Status: Current every day Tobacco Type: cigarettes Smoking packs per day: 1 Smoking cigarettes per day: 20.0 Smoking risk assessment performed?: Yes Alcohol Intake: current Alcohol Intake frequency: 3 or more drinks per day Alcohol type: beer Drug use: Occasionally Substance use type: marijuana Details: no IV drug use Housing: apartment Do you feel safe at home: Yes Do you feel safe in your relationship?: Yes Exam Const General: no acute distress Orientation: alert HENMT Head: normal to inspection Ears: external ears normal General nose exam: external nose normal Mouth: moist mucous membranes Eyes General: appearance normal, both eyes and all related structures Neck Neck: normal visual inspection Resp Effort & Inspection: normal respiratory effort and able to speak in complete sentences Cardio Rate: regular rate GI Palpation: soft, no pulsatile masses and not rigid Skin General skin exam: no rashes or lesions noted Neuro General: patient alert and patient oriented x3 Extrem General: normal to inspection Psych Mental Status: mental status grossly normal Course Vital Signs Vital signs: Vital Signs Temperature 36.5 C 05/13/20 22:47 Pulse 105 H 05/13/20 22:47 Respiratory Rate 20 05/13/20 22:47 Blood Pressure 146/77 H 05/13/20 22:47 Pulse Oximetry 97 05/13/20 22:47 Temperature 36.5 C 05/13/20 22:47 Temperature Source Temporal Artery Scan 05/13/20 22:47 Pulse 105 H 05/13/20 22:47 Respiratory Rate 20 05/13/20 22:47 Respiratory Effort Non-Labored 05/13/20 22:52 Blood Pressure 146/77 H 05/13/20 22:47 Pulse Oximetry 97 05/13/20 22:47 Oxygen Delivery Method Room Air 05/13/20 22:47 Oxygen Flow Rate 0 05/13/20 22:47 Pain Level 10 05/13/20 22:47
[2020-05-13] MEDS: Acetaminophen 325 MG TAB 650 MG PO (23:08)
== END 2020-05-13 23:30 | disposition left against medical advice (07) ==
PROVIDERS: Emergency Provider Emergency Medicine; PCP Student in an Organized Health Care Education/Training Program
DX: R10.33 Periumbilical pain (principal); F10.20 Alcohol dependence, uncomplicated; Z53.29 Procedure and treatment not carried out because of patient's decision for other reasons
CPT/HCPCS: 99283

== ENCOUNTER 2020-06-17 20:52 | Emergency (ER) | payer MEDICAID, SELFPAY ==
[2020-06-17] VITALS (31 sets, daily range): BP systolic 97–164; BP diastolic 42–106; PULSE 75–119; RESP 13–30; TEMP 37–37.1; O2SAT 93–99
--- NOTE | 2020-06-17 20:45 | RT.EKG_ITS ---
APPROVED REPORT Exam: Resting ECG Patient Location: E HR:117 bpm ECG Measurements Heart Rate 117 AXIS KS 156 P 93 QRSd 73 QRS -32 QT 331 T 44 QTc 463 Conclusion Sinus tachycardia...rate> 99 Probable left atrial enlargement...P >50mS, <-0.10mV V1 Low voltage, extremity and precordial leads...extremity<0.5mV, precordial<1.0mV Physician: No stemi
--- NOTE | 2020-06-17 20:49 | ED.GENADUL_ITS ---
Discharge Plan Disposition Patient Disposition: HOME Condition: Stable Discharge Details Clinical Impression: Urinary retention, Alcoholism /alcohol abuse, Pneumonia, Nonadherence to medication Primary Care Provider: Benjamin Bustillos ED Provider: Jackie Carrasco Home Meds and New Rx's Prescriptions: New doxycycline hyclate 100 mg capsule 100 mg PO BID 5 Days Qty: 10 RF: 0 Eliquis 5 mg tablet 5 mg PO BID Qty: 30 RF: 0 Continued Eliquis 5 mg tablet 5 mg PO BID Qty: 60 RF: 0 folic acid 1 mg tablet 1 mg PO DAILY Qty: 30 RF: 0 guaifenesin [Mucinex] 600 mg tablet extended release 12hr 600 mg PO BID PRN (Reason: cough) Qty: 20 RF: 0 Creon 12,000-38,000 -60,000 unit capsule,delayed release(DR/EC) 1 cap PO AC & HS Qty: 120 RF: 0 tamsulosin 0.4 mg Capsule 0.8 mg PO DAILY Qty: 30 RF: 0 omeprazole magnesium [Prilosec OTC] 20 mg tablet,delayed release (DR/EC) 20 mg PO DAILY Qty: 60 RF: 0 sucralfate [Carafate] 1 gram tablet 1 g PO BID Qty: 60 RF: 0 Discharge Instructions Instructions: Urinary Retention in Men (ED), Pneumonia (ED) Additional Instructions: Your imaging is suggestive of pneumonia. This could account for your right- sided pain as well as for fevers. Please take the doxycycline as prescribed. Even if symptoms improve, please take the entire course. Imaging is also concerning for possible blood clot in the right leg. We will need follow-up with an outpatient ultrasound tomorrow. You will need to take the Eliquis as you have been previously prescribed. You received your first night, next dose will not be due for 24 hours. Please take 10 mg for the next week and then transition back to your typical 5 mg dosing. You were retaining urine once again. Please keep catheter in place until reevaluated by urology. Please call urology tomorrow to schedule follow up appointment, number listed below. Please care for catheter as directed by nursing staff. You need follow-up with primary care as soon as possible to discuss your medications and multiple symptoms. Please call tomorrow morning to schedule ap pointment, number listed below. If you develop increased shortness of breath, chest pain, inability stay hydrated or other new/worsening symptoms please seek care urgently once again. Referrals: Marco Antonio Armenta MD [ [facility]] - Benjamin Bustillos DO [Primary Care Provider] - Medical Decision Making Patient is a 50-year-old male, brought into the lab, presenting today with chief complaints of chest pain, right shoulder pain, diffuse abdominal pain. He reports his symptoms began 3 days ago. He endorses a fever with a T-max of 101 ?F. Reports that he has had no p.o. intake since onset of symptoms. He states that he has had nausea and vomiting, endorses 3 episodes of vomiting today. No hematemesis. Reports having constipation and decreased urinary output. Past medical history concerning for chronic alcoholism, alcoholic gastritis, common bile duct dilatation, urinary retention, septal myocardial infarction, review of right upper extremity, hypertension, chronic pancreatitis. Patient is chronically anticoagulated on Eliquis. On exam, patient appears nontoxic. Does appear chronically unwell. Following consistent with history of smoking. Patient is tachycardic at 119. He does appear anxious. He is currently afebrile. Lungs are clear. Normal cardiac auscultation. No lower extremity edema or calf tenderness. Patient is exquisitely tender with movement of the right upper extremity. 2+ distal pulses. I do not appreciate findings to suggest recurrent upper extremity DVT. With distraction, abdominal pain seems to be minimal. However, the patient focusing more on palpation he does endorse right upper quadrant pain as well as pain with rebound. Normal bowel sounds. Differential quite broad at this time. Considered ACS, infection, recurrent pancreatitis, cholecystitis versus other. Patient reports he has not taken his medication. He is not complaining of shortness of breath time, I do not see any evidence of pulmonary embolism . Labs are reviewed. No leukocytosis. Stable H&H. CMP significant for transaminitis with AST of 88. Alk phos 165. Troponin within normal limits. Has less than 3 days of symptoms, do not feel that repeat troponin is warranted. Pain does not sound classically cardiac in nature as there is no exertional component and rather consistent pain. He reports that he is typically at rest. Patient reports that his last drink was yesterday and that he had 2 beers. Alcohol level is 204 at this time. Bladder was enlarged on CT. Patient had 100 cc out in the post void residual of 850. He has had difficulty with urinary retention historically. Will replace catheter. He reports that he has had catheters multiple times CT reviewed by radiology: FINDINGS: Lungs: There is bibasilar consolidation, worse on the right. Pleural spaces: Unremarkable. No pneumothorax. No pleural effusion. Heart: There is severe atherosclerotic calcification of the coronary arteries. Esophagus: No esophageal thickening. Mediastinal space: There are no enlarged mediastinal lymph nodes or masses. Pulmonary arteries: The visualized central pulmonary arteries appear unremarkable. Aorta: There is no thoracic aortic aneurysm, dissection or tear. There are moderate atherosclerotic calcifications scattered throughout the thoracic aorta. Lymph nodes: There is a calcified lymph node in the right paratracheal region measuring 14 x 10 mm. Liver: No enhancing masses are seen. Bones/joints: There is no evidence of acute fracture. No aggressive bone lesions identified. Soft tissues: Unremarkable. IMPRESSION: 1. Bibasilar consolidation, worse on the right, that may be secondary to atelectasis or in the appropriate clinical setting, pneumonia. 2. Severe coronary artery atherosclerotic calcification. 3. Peripheral vascular disease. 4. No evidence of metastatic disease to the thorax. FINDINGS: Lungs: No consolidation in the visualized lung bases. Liver: No hepatomegaly. There are no enhancing liver masses. Gallbladder and bile ducts: No calcified stones. No ductal dilation. Pancreas: Interval progression of dilatation of the pancreatic duct, that now measures 11.6 cm in anteroposterior diameter. Proximal to the dilatation, the mass in the head of the pancreas that appears solid measuring 2.9 x 1.7 cm, stable when compared to 05/05/2020. Coarse calcification in the uncinate process and to a lesser extent, the pancreatic tail are redemonstrated, possibly related to underlying chronic pancreatitis or to the adjacent neoplasm. Spleen: Normal. No splenomegaly Adrenal glands: Normal. No mass. Kidneys and ureters: There is no hydronephrosis. No renal or obstructing ureteral calculi. Stomach and bowel: Moderate descending colon sigmoid diverticulosis without acute diverticulitis. Appendix: No evidence of appendicitis. Intraperitoneal space: No free air. No significant fluid collection. Vasculature: There is moderate atherosclerotic calcification of the abdominal aorta and iliac arteries without aneurysm. Possible thrombus in the right femoral vein versus at mixture of opacified and unopacified blood. Lymph nodes: No enlarged retroperitoneal or mesenteric lymph nodes. Urinary bladder: The bladder is markedly distended measuring 16 cm in craniocaudal extent by 7.8 cm in anteroposterior diameter by 10.5 cm transversely. Reproductive: The prostate measures 4.3 cm in transverse dimension. Bones/joints: Diffuse osteopenic changes. There is multilevel degenerative disc disease with anterior osteophytes. There are anterior and posterior osteophytes at L5-S1. There is a transitional vertebra at the lumbosacral junction. Soft tissues: Normal. IMPRESSION: 1. Stable 2.9 cm mass in the head of the pancreas with interval increasing dilatation of the pancreatic duct. This is consistent with the patient's history of pancreatic carcinoma stage II. 2. Redemonstration of a markedly distended urinary bladder, stable. 3. Moderate descending colon sigmoid diverticulosis without acute diverticulitis. 4. No evidence of metastatic disease to the abdomen or pelvis. 5. Findings suspicious for thrombus in the right femoral vein. Consider correlation with venous Doppler of the right lower extremity if clinically indicated. I spoke with the radiologist again. I cannot find in the patient's chart where he has a history of pancreatic carcinoma stage II. However, on discussion with the patient, who reports that there was question of stage III pancreatic cancer when he was last in the [place] approximately 2 years ago. He reports that prior to being in [place] he had a stent in the pancreas for his chronic pancreatitis. He states that this is removed and reports it should not have been. Reports that that was when he was noted to have possible cancer. He denies any treatment for that. The radiologist advises that the concerning mass is unchanged from previous imaging I discussed the question of possible thrombus in the right femoral vein. Patient has 2+ distal pulses. Patient has no swelling of the right lower extremity. No venous stasis is noted. No pain with palpation. Patient is here reporting that he has not has medication in over a month. Patient is supposed to be on Eliquis. Will give 10 mg now. Will refill the Eliquis. Patient will need follow-up with primary care. Patient does not have a local primary care provider. He reports that he typically had his medications refilled in the emergency department. Discussed case with Dr. Blanco. Plan for outpatient ultrasound tomorrow and restarting the patient on his previously prescribed Eliquis. Question of pneumonia on CT may correlate clinically. He reports fever although I note no leukocytosis, patient has been afebrile here. The right sided pain could be associated with pneumonia. Will treat with Doxycycline. Patient states he has gone home with catheter previously, will go home with leg bag. Plan is for patient for f/u with urology for recurrent urinary retention. He will have outpatient US of his RLE for concern for DVT on CT scan. He was given first dose of Eliquis and Doxycycline while here, tung called to his choice of pharmacy. Patient had initially reported that he has no PCP but has Dr. Bustillos in his chart. Advised that he should f/u with his PCP team this week and discuss chronic medications and chornic health concerns further. Patient feels safe for discharge. Will arrange for RCT for transportation. All of his questions and concerns were addressed, he is in agreement with this plan. Patient has been clinically sober and appropriate while here. I encouraged sobriety, he states that he has been cutting back on ETOH intake. HPI General Mode of arrival: EMS . Date/Time Provider Initiated Documentation: 06/17/20 21:59 . Limitations to Documentation: no limitations . Information obtained by: patient, EMS and RN notes reviewed . History of Present Illness 60 year old M presents to the emergency department with the chief complaint of right sided arm, chest, abdominal pain, described as severe, with intensity rated at 10. and is localized to the chest, abdomen, right and upper extremity. Patient reports no radiation. Patient started experiencing this day(s) and it has been constant. No relieving factors improve symptom(s), No exacerbating factors reported . Patient notes no other symptoms.. Patient did receive the following treatments prior to arrival, none Related Data Home Medications Medication Instructions Recorded Confirmed Creon 1 cap PO AC & HS #120 cap 01/28/20 06/17/20 Eliquis 5 mg PO BID #60 tab 01/28/20 06/17/20 folic acid 1 mg PO DAILY #30 tab 01/28/20 05/05/20 guaifenesin [Mucinex] 600 mg PO BID PRN #20 tab 01/28/20 06/17/20 tamsulosin 0.8 mg PO DAILY #30 cap 02/07/20 06/17/20 omeprazole magnesium [Prilosec OTC] 20 mg PO DAILY #60 tab 04/30/20 06/17/20 sucralfate [Carafate] 1 g PO BID #60 tab 04/30/20 06/17/20 apixaban [Eliquis] 5 mg PO BID #30 tab 06/18/20 doxycycline hyclate 100 mg PO BID 5 Days #10 cap 06/18/20 Previous Rx's Medication Instructions Recorded Creon 1 cap PO AC & HS #120 cap 01/28/20 Eliquis 5 mg PO BID #60 tab 01/28/20 folic acid 1 mg PO DAILY #30 tab 01/28/20 guaifenesin [Mucinex] 600 mg PO BID PRN #20 tab 01/28/20 tamsulosin 0.8 mg PO DAILY #30 cap 02/07/20 omeprazole magnesium [Prilosec OTC] 20 mg PO DAILY #60 tab 04/30/20 sucralfate [Carafate] 1 g PO BID #60 tab 04/30/20 apixaban [Eliquis] 5 mg PO BID #30 tab 06/18/20 doxycycline hyclate 100 mg PO BID 5 Days #10 cap 06/18/20 Allergies Allergy/AdvReac Type Severity Reaction Status Date / Time Opioids - Morphine Analogues Allergy Mild urticaria Verified 06/17/20 20:59 Penicillins Allergy Unverified 06/17/20 20:59 General DMITRI: 4 Review of Systems Constitutional Constitutional: Reports as per HPI, Denies chills, Denies fatigue, Reports fever(s) (T max 101*F), Denies headache(s) and Reports poor appetite ENT Ears, Nose, Mouth, and Throat: Denies headache(s) Cardiovascular Cardiovascular: Reports as per HPI, Reports chest pain (right sided), Reports chest pain at rest, Denies chest pain with activity (patient states that pain is constant, denies any exertional pain), Denies leg edema, Denies lightheadedness, Reports radiating jaw, neck or arm pain (reports right shoulder pain that is brought on by shoulder movement) and Denies dyspnea Respiratory Respiratory: Reports as per HPI, Denies cough and Denies dyspnea Gastrointestinal Gastrointestinal: Reports as per HPI Genitourinary Genitourinary: Denies system reviewed and no additional complaints, except as documented (patient denies any change in urinary habits) Musculoskeletal Musculoskeletal: Reports as per HPI and Denies back pain Integumentary/Breasts Skin/Breast: Reports as per HPI and Denies rash Neurologic Neurologic: Reports as per HPI and Denies headache(s) Endocrine Endocrine: Denies fatigue [facility] Medical History Alcohol withdrawal ARDS (adult respiratory distress syndrome) Aspiration pneumonia COVID-19 ruled out by laboratory testing HTN (hypertension) Hx of hyperlipidemia Myocardial infarction x 2 Pancreatitis Pancreatitis, chronic Presence of pancreatic duct stent (~01/2018) [facility] Surgical History S/P ERCP (~01/2018) [facility] Family History Mother Alcohol abuse Father Alcohol abuse Social History Smoking/Tobacco Use Status: Current every day Tobacco Type: cigarettes Smoking packs per day: 1 Smoking cigarettes per day: 20.0 Smoking risk assessment performed?: Yes Alcohol Intake: current Alcohol Intake frequency: 3 or more drinks per day Alcohol type: beer Drug use: Occasionally Substance use type: marijuana Details: no IV drug use Housing: apartment Do you feel safe at home: Yes Do you feel safe in your relationship?: Yes Exam Const General: cooperative, comfortable, no acute distress, well developed and ill appearing chronically; not acutely Nutritional Appearance: average body habitus and well nourished Orientation: alert and awake [facility] Head: normal to inspection Mouth: moist mucous membranes Chest Chest: normal inspection of the chest, normal palpation of entire chest wall, no crepitus and no tenderness Resp Effort & Inspection: normal respiratory effort, able to speak in complete sentences and no respiratory distress Auscultation: clear to auscultation bilaterally, no rales, no rhonchi and no wheezes Cardio Rate: regular rate Rhythm: regular rhythm Heart Sounds: S1 normal and S2 normal GI Inspection: normal to inspection, no edema and non-distended Palpation: soft, no hepatosplenomegaly, not firm, no guarding, no masses, no pulsatile masses, not rigid and tender (reports diffuse pain, none with palpation when distracted/talking) in the RUQ (indicates this as area of maximal tenderness); Ackerman's sign negative and with no rebound tenderness Percussion: normal to percussion Auscultation: normal bowel sounds Back/Spine/Pelvis Back: no CVA tenderness Skin General skin exam: no rashes or lesions noted Trauma: no lacerations or abrasions Neuro General: patient alert and patient awake Cognition: normal cognition Speech: speech normal Gait: normal gait Extrem General: normal to inspection, capillary refill normal, no joint enlargement, no pedal edema, no calf tenderness and other (2+ distal pulses) Psych Appearance: grossly normal and well kempt Mental Status: mental status grossly normal Speech and Movement: speech and movement normal
[2020-06-17 21:25] LABS: Abs Immature Grans 0.01 10^3/uL (0.0-0.06); Absolute Basophil Count 0.04 10^3/uL (0.0-0.2); Absolute Eosinophil Count 0.12 10^3/uL (0.0-0.7); Absolute Lymphocyte Count 2.42 10^3/uL (1.2-3.4); Absolute Monocyte Count 0.55 10^3/uL (0.1-0.8); Absolute Neutrophil Count 1.37 10^3/uL (1.2-6.7); Basophils % 0.9; Eosinophils % 2.7; HGB 15.8 g/dL (13.5-17.5); Immature Grans % 0.2; Lymphocytes % 53.7; MCH 33.5 pg (27.0-33.0); MCHC 34.3 % (32.0-36.0); MCV 97.5 fL (80-95); MPV 9.5 fL (8.0-11.0); Monocytes % 12.2; Neutrophils % 30.3; Nucleated RBC 0 %; Platelet Count 223 10^3/uL (130-400); RBC 4.72 10^6/uL (4.36-5.78); RDW 14.3 % (11.8-14.1); WBC 4.51 10^3/uL (4.4-10.8)
[2020-06-17] MEDS: ACETAMINOPHEN 1,000 MG/100 ML BTL 400 MG IVPB (21:27)
[2020-06-17] MEDS: Lactated Ringers 1,000 ML 1000 ML IV (21:28)
[2020-06-17] MEDS: Ondansetron 4 MG/2 ML VIAL IVP (21:28)
[2020-06-17 21:40] LABS: ALT 43 U/L (16-63); AST 88 U/L (15-37); Albumin 2.8 g/dL (3.4-5.0); Alkaline Phosphatase 165 U/L (46-116); Anion Gap 11.6 mmol/L (3-11); BUN 3 mg/dL (7-18); Bilirubin, Total 0.3 mg/dL (0.2-1.0); CO2 22.4 mmol/L (21.0-32.0); CREATININE 0.7 mg/dL (0.70-1.30); Calcium 8.2 mg/dL (8.5-10.1); Chloride 106 mmol/L (98-107); Glucose 105 mg/dL (74-106); Lipase 205 U/L (73-393); Magnesium 1.9 mg/dL (1.8-2.4); Sodium 140 mmol/L (136-145); Total Protein 6.9 g/dL (6.4-8.2)
[2020-06-17 21:41] LABS: Troponin I < 0.05 ng/mL (<0.06)
[2020-06-17 21:42] LABS: Potassium 3.9 mmol/L (3.5-5.1)
--- NOTE | 2020-06-17 21:45 | DI.CT_ITS ---
EXAM: CT CHEST/ABD/PEL W CLINICAL HISTORY: diffuse right sided pain TECHNIQUE: Imaging Protocol: Axial computed tomography images with coronal and sagittal reformatted images were created and reviewed CONTRAST MATERIAL: Intravenous: Visipaque 320 contrast volume:100 mL Oral: No COMPARISON: CT CT ABDOMEN PELVIS W from 05/05/2020 FINDINGS: CHEST: Tracheobronchial tree: Patent where visualized. Pulmonary parenchyma: Bilateral basilar infiltrates which may represent atelectasis or pneumonia. No pulmonary nodules. Visualized thyroid gland: Unremarkable. Mediastinum and Caroline: No dominant adenopathy or fluid collection. Calcified lymph nodes are seen in t he mediastinum which may reflect prior granulomatous disease. Pleura: No effusion or pneumothorax. Heart: The heart is not dilated. Marked coronary artery calcification. No pericardial effusion. Aorta: Thoracic aorta non-dilated. Atherosclerosis. Lymph nodes: Please see above. Soft tissues: Unremarkable. Bones:Normal.No osseous metastatic disease. ABDOMEN: Liver: Normal density. No measurable mass. Portal, Superior Mesenteric, and Splenic Veins: Unremarkable. Gallbladder and Biliary Tract: No radiodense calculus or dilation. Pancreas: There again seen calcifications predominantly involving the head of the pancreas which appe ars stable. Dilatation of the proximal pancreatic duct has increased measuring 1.3 cm on the current examination compared with 1 cm on the prior examination. There is mild atrophy of the body and tail of the pancreas. The patient reports a 2 year history of a pancreatic head mass. The pancreatic he ad appears unchanged compared to the prior examinations. MRI may be obtained for better evaluation. Spleen: Normal. Adrenals: No masses seen. Kidneys: Normal size, contour and axis. No radiodense stones or obstructive uropathy. No masses seen. Abdominal Aorta: Abdominal portion non-dilated. Moderately severe atherosclerosis. Vasculature: Thrombus versus admixture of opacified and unopacified blood in the right femoral vein. Bowel: No obstruction or bowel wall thickening. Descending and sigmoid diverticulosis but no evidence of acute diverticulitis. No evidence of acute appendicitis. Peritoneal Cavity: No ascites, collection or mesenteric inflammatory response. No free air. Lymph Nodes: Within normal limits. Bones: Within normal limits for the patient's age. No evidence of osseous metastatic disease. Soft Tissues: Small fat containing umbilical hernia. PELVIS: Bladder: Symmetric distention, no gross wall thickening. Reproductive Organs: Unremarkable as visualized. Lymph Nodes: Within normal limits. Bones: Within normal limits. No evidence of osseous metastatic disease. IMPRESSION: 1. Stable appearance of the pancreatic head. MRI may be obtained considered for further evaluation t o assess for pancreatic head mass. 2. Interval increase in size of the dilatation of the pancreatic duct. 3. No evidence of abdominal or pelvic metastatic disease. 4. Thrombus versus admixture of opacified and unopacified blood in the right femoral vein. If there is continued concern, a right lower extremity ultrasound should be considered. 5. No evidence of thoracic metastatic disease. 6. Bilateral basilar infiltrates which may represent atelectasis or pneumonia. RADIATION DOSE DELIVERED: 976.78mGy.cm Total DLP DATA REPOSITORY: All CT scans at this facility are submitted to the National Radiology Data Registry (NRDR) Dose Index Registry (DIR) with the [employer] ([employer]). RADIATION OPTIMIZATION: All CT scans at this facility use at least one of these dose optimization te chniques: automated exposure control; mA and/or kV adjustment per patient size (includes targeted exa ms where dose is matched to clinical indication); or iterative reconstruction.
[2020-06-17 22:22] LABS: INR 1.1 (0.9-1.1); PTT Activated 26.3 sec (21.0-27.5); Prothrombin Time 10.9 sec (9.3-11.0)
[2020-06-17] MEDS: Normal Saline Flush 10 ML SYR IVP (22:32)
[2020-06-17] MEDS: Normal Saline - Diluent 50 ML VIAL IV (22:32)
[2020-06-17 23:21] LABS: Bilirubin Negative (Negative); Blood Negative (Negative); Clarity Clear (Clear); Glucose Negative (Negative); Ketones Negative (Negative); Leukocyte Esterase Negative (Negative); Nitrite Negative (Negative); Urobilinogen 0.2 EU/dL (Up TO 0.2); pH 6.5 (5-8)
[2020-06-17] MEDS: Lidocaine 2% Jelly 6 ML SYR (23:47)
[2020-06-18] VITALS (17 sets, daily range): BP systolic 130–155; BP diastolic 80–103; PULSE 73–101; RESP 10–25
--- NOTE | 2020-06-18 00:14 | DI.VRAD_ITS ---
Addendum created by Eric Park MD on 06/18/2020 12:35:36 AM EDT: THIS REPORT CONTAINS FINDINGS THAT MAY BE CRITICAL TO PATIENT CARE. The findings were verbally communicated via telephone conference with THEA LOPEZ at 12:25 AM EDT on 06/18/2020. The findings were acknowledged and understood. Further history reveals that the patient does state he was told he had pancreatic carcinoma stage II approximately 2 years ago. He was treated with a stent at that time. The soft tissue density measured proximal to the pancreatic ductal dilatation may simply be the head of the pancreas. If it is in fact tumor, it has not changed when compared to 04/17/2020 and there is no evidence of metastatic disease to the chest, abdomen or pelvis. MRI with contrast, pancreatic mass protocol may be helpful for further characterization. Initial report created on 06/18/2020 12:14:02 AM EDT: PROCEDURE INFORMATION: Exam: CT Chest With Contrast; Diagnostic Exam date and time: 06/17/2020 10:29 PM Age: 60 years old Clinical indication: Abdominal pain and other: Chest; Localized; Right upper quadrant (ruq); Right-sided chest pain; Patient HX: Diffuse right sided chest pain; Additional info: HX of pancreatic CA stage 2 TECHNIQUE: Imaging protocol: Diagnostic computed tomography of the chest with contrast. 3D rendering (Not supervised by radiologist): MIP and/or 3D reconstructed images were created by the technologist. Radiation optimization: All CT scans at this facility use at least one of these dose optimization techniques: automated exposure control; mA and/or kV adjustment per patient size (includes targeted exams where dose is matched to clinical indication); or iterative reconstruction. Contrast material: VISIPAQUE 320; Contrast volume: 100 ml; Contrast route: INTRAVENOUS (IV); COMPARISON: CT ABDOMEN PELVIS W 05/05/2020 8:15 PM FINDINGS: Lungs: There is bibasilar consolidation, worse on the right. Pleural spaces: Unremarkable. No pneumothorax. No pleural effusion. Heart: There is severe atherosclerotic calcification of the coronary arteries. Esophagus: No esophageal thickening. Mediastinal space: There are no enlarged mediastinal lymph nodes or masses. Pulmonary arteries: The visualized central pulmonary arteries appear unremarkable. Aorta: There is no thoracic aortic aneurysm, dissection or tear. There are moderate atherosclerotic calcifications scattered throughout the thoracic aorta. Lymph nodes: There is a calcified lymph node in the right paratracheal region measuring 14 x 10 mm. Liver: No enhancing masses are seen. Bones/joints: There is no evidence of acute fracture. No aggressive bone lesions identified. Soft tissues: Unremarkable. IMPRESSION: 1. Bibasilar consolidation, worse on the right, that may be secondary to atelectasis or in the appropriate clinical setting, pneumonia. 2. Severe coronary artery atherosclerotic calcification. 3. Peripheral vascular disease. 4. No evidence of metastatic disease to the thorax. PROCEDURE INFORMATION: Exam: CT Abdomen And Pelvis With Contrast Exam date and time: 06/17/2020 10:29 PM Age: 60 years old Clinical indication: Abdominal pain and other: Chest; Localized; Right upper quadrant (ruq); Right-sided chest pain; Patient HX: Diffuse right sided chest pain; Additional info: HX of pancreatic CA stage 2 TECHNIQUE: Imaging protocol: Computed tomography of the abdomen and pelvis with contrast. 3D rendering (Not supervised by radiologist): MIP and/or 3D reconstructed images were created by the technologist. Radiation optimization: All CT scans at this facility use at least one of these dose optimization techniques: automated exposure control; mA and/or kV adjustment per patient size (includes targeted exams where dose is matched to clinical indication); or iterative reconstruction. Contrast material: VISIPAQUE 320; Contrast volume: 100 ml; Contrast route: INTRAVENOUS (IV); COMPARISON: CT ABDOMEN PELVIS W 05/05/2020 8:15 PM FINDINGS: Lungs: No consolidation in the visualized lung bases. Liver: No hepatomegaly. There are no enhancing liver masses. Gallbladder and bile ducts: No calcified stones. No ductal dilation. Pancreas: Interval progression of dilatation of the pancreatic duct, that now measures 11.6 cm in anteroposterior diameter. Proximal to the dilatation, the mass in the head of the pancreas that appears solid measuring 2.9 x 1.7 cm, stable when compared to 05/05/2020. Coarse calcification in the uncinate process and to a lesser extent, the pancreatic tail are redemonstrated, possibly related to underlying chronic pancreatitis or to the adjacent neoplasm. Spleen: Normal. No splenomegaly. Adrenal glands: Normal. No mass. Kidneys and ureters: There is no hydronephrosis. No renal or obstructing ureteral calculi. Stomach and bowel: Moderate descending colon sigmoid diverticulosis without acute diverticulitis. Appendix: No evidence of appendicitis. Intraperitoneal space: No free air. No significant fluid collection. Vasculature: There is moderate atherosclerotic calcification of the abdominal aorta and iliac arteries without aneurysm. Possible thrombus in the right femoral vein versus at mixture of opacified and unopacified blood. Lymph nodes: No enlarged retroperitoneal or mesenteric lymph nodes. Urinary bladder: The bladder is markedly distended measuring 16 cm in craniocaudal extent by 7.8 cm in anteroposterior diameter by 10.5 cm transversely. Reproductive: The prostate measures 4.3 cm in transverse dimension. Bones/joints: Diffuse osteopenic changes. There is multilevel degenerative disc disease with anterior osteophytes. There are anterior and posterior osteophytes at L5-S1. There is a transitional vertebra at the lumbosacral junction. Soft tissues: Normal. IMPRESSION: 1. Stable 2.9 cm mass in the head of the pancreas with interval increasing dilatation of the pancreatic duct. This is consistent with the patient's history of pancreatic carcinoma stage II. 2. Redemonstration of a markedly distended urinary bladder, stable. 3. Moderate descending colon sigmoid diverticulosis without acute diverticulitis. 4. No evidence of metastatic disease to the abdomen or pelvis. 5. Findings suspicious for thrombus in the right femoral vein. Consider correlation with venous Doppler of the right lower extremity if clinically indicated. Dictated and Authenticated by: Eric Park MD. Ordering:ANEL Mejia MD
--- NOTE | 2020-06-18 01:10 | NUR.NOTE ---
Nursing Note: refreral faxed to urology for urinary retension 06/18/20
[2020-06-18] MEDS: Doxycycline Hyclate 100 MG CAP PO (01:32)
[2020-06-18] MEDS: Apixaban 5 MG TAB 10 MG PO (01:32)
--- NOTE | 2020-06-18 11:45 | NUR.NOTE ---
Nursing Note: DI was unable to get in touch with the patient to schedule an outpt ultrasound. Patient also did not call DI. No US was scheduled for today. Binta Colvin
== END 2020-06-18 01:49 | disposition home or self-care (01) ==
PROVIDERS: Emergency Provider Physician Assistant; PCP Family Medicine
DX: J18.8 Other pneumonia, unspecified organism (principal); R33.8 Other retention of urine; F10.220 Alcohol dependence with intoxication, uncomplicated; Y90.7 Blood alcohol level of 200-239 mg/100 ml; R93.6 Abnormal findings on diagnostic imaging of limbs; T45.516A Underdosing of anticoagulants, initial encounter; Z91.128 Patient's intentional underdosing of medication regimen for other reason
CPT/HCPCS: 36415; 51702; 74177; 80053; 83690; 93005; 96361; 96365; 96375; 99285; 71260; 80320; 81003; 83735; 84484; 85025; 85610; 85730; 93010; J0131; J2405

== ENCOUNTER 2020-06-25 07:25 | Inpatient (IN) | payer MEDICAID, SELFPAY ==
[2020-06-25] VITALS (16 sets, daily range): BP systolic 135–169; BP diastolic 78–110; PULSE 105–122; RESP 17–30; TEMP 37.1–37.2; O2SAT 90–100
--- NOTE | 2020-06-25 | DI.US_ITS ---
Exam(s) US LOWER EXTREMITY VENOUS RT EXAM: US LOWER EXTREMITY VENOUS RT CLINICAL HISTORY: CT with questionable thrombus TECHNIQUE: Right lower extremity venous ultrasound performed using grayscale, color-flow, and spectr al Doppler analysis. COMPARISON: No exams were available for comparison FINDINGS: The right common femoral, femoral and popliteal veins demonstrate normal compressibility, augmentatio n, and color Doppler. The posterior tibial veins are patent. The saphenofemoral junction is unremark able. There is no evidence of a Braswell cyst. The soft tissues are unremarkable. IMPRESSION: No DVT. DATA REPOSITORY:
--- NOTE | 2020-06-25 07:15 | DI.CT_ITS ---
Exam(s) CT ABDOMEN PELVIS W EXAM: CT ABDOMEN PELVIS W CLINICAL HISTORY: worsening epigastric pain, known pnc mass, vomitin TECHNIQUE: Imaging Protocol: Axial computed tomography images with coronal and sagittal reformatted images were created and reviewed CONTRAST MATERIAL: Intravenous: Omnipaque 350 Contrast volume:100 mL Oral: No COMPARISON: CT CT CHEST/ABD/PEL W from 06/17/2020 FINDINGS: ABDOMEN: Lung Bases: Dependent atelectasis. Liver: Normal density. No measurable mass. Portal, Superior Mesenteric, and Splenic Veins: Unremarkable. Gallbladder and Biliary Tract: No radiodense calculus or dilation. Pancreas: There is now inflammatory stranding associated with the head and uncinate process of the pa ncreas. There is also now an area of decreased attenuation part of which is fluid density adjacent t o the head and uncinate process of the pancreas. There is unchanged dilatation of the pancreatic minh t. There are unchanged calcifications involving the head and body of the pancreas. Spleen: Normal. Adrenals: No masses seen. Kidneys: Normal size, contour and axis. No radiodense stones or obstructive uropathy. No masses seen. Abdominal Aorta: Abdominal portion non-dilated. Atherosclerosis. Bowel: No obstruction or bowel wall thickening. Appendix is unremarkable. There is diverticulosis of the descending and sigmoid colon but no evidence of acute diverticulitis. Mild thickening of the duo denal loops and proximal jejunum are seen. This is likely an enteritis/duodenitis secondary to the a djacent pancreatitis. There are mildly dilated loops of small bowel but no transition is seen. This may represent an ileus. Peritoneal Cavity: No ascites, collection or mesenteric inflammatory response. No free air. Lymph Nodes: Mild reactive lymph nodes are seen in the peripancreatic region. Bones: Within normal limits for the patient's age. Soft Tissues: Unremarkable. PELVIS: Bladder: There is mild thickening and enhancement of the wall of the urinary bladder. This may refle ct an inflammatory infectious process. Reproductive Organs: Unremarkable as visualized. Lymph Nodes: Within normal limits. Bones: Within normal limits for the patient's age. IMPRESSION: 1. Interval development of inflammatory changes around the pancreas suspicious for an acute pancreati tis superimposed upon a setting of chronic pancreatitis. Inflammatory collection posterior to the he ad of the pancreas likely reflecting and phlegmon or possible small abscess. This collection measure s approximately 2.2 cm. 2. Enhancement and thickening of the wall of the urinary bladder. This may represent inflammatory/in fectious cystitis. Please correlate clinically. 3. Results of this exam have been verbally communicated with provider. RADIATION DOSE DELIVERED: 697.57mGy.cm Total DLP DATA REPOSITORY: All CT scans at this facility are submitted to the National Radiology Data Registry (NRDR) Dose Index Registry (DIR) with the [employer] ([employer]). RADIATION OPTIMIZATION: All CT scans at this facility use at least one of these dose optimization te chniques: automated exposure control; mA and/or kV adjustment per patient size (includes targeted exa ms where dose is matched to clinical indication); or iterative reconstruction.
--- NOTE | 2020-06-25 07:20 | ED.GENADUL_ITS ---
Discharge Plan Disposition Patient Disposition: [facility] INPATIENT Condition: Stable Discharge Details Clinical Impression: Acute pancreatitis Admit Date/Time: 06/25/20 10:05 Admit Provider: Jaspreet Duvall Attending Provider: Jaspreet Duvall Primary Care Provider: Benjamin Bustillos ED Provider: Todd Brothers Discharge Data Discharge Date/Time-TO BE ENTERED AT DEPARTURE: 06/25/20 10:01 Medical Decision Making <Fidel Smith DO - Last Filed: 06/25/20 07:25> 60-year-old male with a history of alcohol abuse, hypertension, hyperlipidemia, chronic pancreatitis, pancreatic mass, myocardial infarction has had previous pancreatic stents, with subsequent removal, right upper extremity DVT chronically anticoagulated with apixaban, occasional upper GI bleeds who was recently diagnosed with pneumonia and given doxycycline about a week ago, and diagnosed with a questionable lower extremity DVT for which she did not follow- up for subsequent ultrasonography, presents today for evaluation of worsening of his chronic epigastric pain. Patient states that he has been taking the antibiotic as directed and has finished it. However over the last 3 days he has noted notable bloating and pain in his epigastric region. He states that he has been vomiting multiple times throughout the day, but has not noticed any blood. He has continued to drink alcohol, last drink was last night per the patient. He denies any severe profuse diarrhea. The pain seems to be localized to the epigastric region and not in the chest. He does admit to a continued cough in spite of taking the antibiotic. He denies any fever or chills. He denies any other complaints at this time. Physical exam does demonstrate mild bloating of the epigastric region, mild epigastric tenderness on palpation. No other significant abdominal tenderness though. Abdominal exam certainly does not demonstrate an acute surgical abdomen at this time. Patient does not seem to exhibit any signs of chest pain at this time however with his cardiac history this is unlikely but could potentially represent an atypical cardiac etiology. I suspect that the patient's pain is likely a combination of his chronic gastritis compounded by his continued alcohol use and his recent course of doxycycline. However with the patient's complaints and history we will get imaging to rule out acute intra-abdominal process, we will give over med of and a Lidoderm patch, we will evaluate for life-threatening etiologies, monitor closely and reassess. Case will be signed out to my colleague Dr. Todd Brothers for final disposition after evaluation of labs, imaging, and EKG. <Todd Brothers MD - Last Filed: 06/25/20 15:33> 745 --care signed out by Dr. Smith with plan to follow-up on EKG, CT, labs, reassess patient for disposition. 900 --labs reviewed and elevated lipase 600 noted. Mild leukocytosis noted. CT of the abdomen pelvis was interpreted by radiology who I spoke with: pancreatitis, tiny phlegmon near head, no abscess. Screening ECG was reviewed and interpreted by me: Sinus tachycardia 106 bpm, left axis deviation noted, subtle ST depressions are present V3 to V6, no STEMI Hospitalist paged to admit patient. We will continue pain control and IV fluids. HPI <Fidel Smith DO - Last Filed: 06/25/20 07:25> General Date/Time Provider Initiated Documentation: 06/25/20 07:48 . HPI Narrative: 60-year-old male with a history of alcohol abuse, hypertension, hyperlipidemia, chronic pancreatitis, pancreatic mass, myocardial infarction has had previous pancreatic stents, with subsequent removal, right upper extremity DVT chronically anticoagulated with apixaban, occasional upper GI bleeds who was recently diagnosed with pneumonia and given doxycycline about a week ago, and diagnosed with a questionable lower extremity DVT for which she did not follow- up for subsequent ultrasonography, presents today for evaluation of worsening of his chronic epigastric pain. Patient states that he has been taking the antibiotic as directed and has finished it. However over the last 3 days he has noted notable bloating and pain in his epigastric region. He states that he has been vomiting multiple times throughout the day, but has not noticed any blood. He has continued to drink alcohol, last drink was last night per the patient. He denies any severe profuse diarrhea. The pain seems to be localized to the epigastric region and not in the chest. He does admit to a continued cough in spite of taking the antibiotic. He denies any fever or chills. He denies any other complaints at this time. Related Data Home Medications Medication Instructions Recorded Confirmed Creon 1 cap PO AC & HS #120 cap 01/28/20 06/25/20 Eliquis 5 mg PO BID #60 tab 01/28/20 06/25/20 folic acid 1 mg PO DAILY #30 tab 01/28/20 06/25/20 guaifenesin [Mucinex] 600 mg PO BID PRN #20 tab 01/28/20 06/25/20 tamsulosin 0.8 mg PO DAILY #30 cap 02/07/20 06/25/20 omeprazole magnesium [Prilosec OTC] 20 mg PO DAILY #60 tab 04/30/20 06/25/20 sucralfate [Carafate] 1 g PO BID #60 tab 04/30/20 06/25/20 apixaban [Eliquis] 5 mg PO BID #30 tab 06/18/20 06/25/20 Previous Rx's Medication Instructions Recorded Creon 1 cap PO AC & HS #120 cap 01/28/20 Eliquis 5 mg PO BID #60 tab 01/28/20 folic acid 1 mg PO DAILY #30 tab 01/28/20 guaifenesin [Mucinex] 600 mg PO BID PRN #20 tab 01/28/20 tamsulosin 0.8 mg PO DAILY #30 cap 02/07/20 omeprazole magnesium [Prilosec OTC] 20 mg PO DAILY #60 tab 04/30/20 sucralfate [Carafate] 1 g PO BID #60 tab 04/30/20 apixaban [Eliquis] 5 mg PO BID #30 tab 06/18/20 Allergies Allergy/AdvReac Type Severity Reaction Status Date / Time Opioids - Morphine Analogues Allergy Mild urticaria Verified 06/25/20 07:48 Penicillins Allergy Unverified 06/25/20 07:48 General DMITRI: 2 Review of Systems <Fidel Smith DO - Last Filed: 06/25/20 07:25> All systems reviewed & are unremarkable except as noted in HPI and below PFSH <Fidel Smith DO - Last Filed: 06/25/20 07:25> Medical History (Updated 06/25/20 @ 13:19 by Mabel Mayen NP) Acute UTI Alcohol withdrawal Alcoholic gastritis Alcoholism /alcohol abuse ARDS (adult respiratory distress syndrome) Aspiration pneumonia COVID-19 ruled out by laboratory testing Enterocolitis Fever Ground glass opacity present on imaging of lung HTN (hypertension) Hx of hyperlipidemia Hypokalemia Hypomagnesemia Myocardial infarction x 2 Pancreatitis Pancreatitis, chronic Pneumonia Presence of pancreatic duct stent (~01/2018) [facility]. Retention of urine Septal myocardial infarction (01/18/20) probably old, [facility] records Urinary retention Surgical History S/P ERCP (~01/2018) Steffanie Sears. Family History Mother Alcohol abuse Father Alcohol abuse Social History Smoking/Tobacco Use Status: Current every day Tobacco Type: cigarettes Smoking packs per day: 1 Smoking cigarettes per day: 20.0 Smoking risk assessment performed?: Yes Alcohol Intake: current Alcohol Intake frequency: 3 or more drinks per day Alcohol type: beer Drug use: Occasionally Substance use type: marijuana Housing: apartment Do you feel safe at home: Yes Do you feel safe in your relationship?: Yes Exam <Fidel Smiht DO - Last Filed: 06/25/20 07:25> Narrative Exam Narrative: 1.Const: Well-nourished, Well-developed, appearing stated age 2.Eyes: PERRL, no conjunctival injection, and symmetrical lids. 3.ENT: Atraumatic external nose and ears. Moist MM. Neck: Symmetric, trachea midline, No thyromegaly. 4.CVS: +S1/S2, No murmurs or gallops. Peripheral pulses 2+ and equal in all extremities. Brisk capillary refill in all extremities. 5.RESP: Unlabored respiratory effort. Clear to auscultation bilaterally. No wheezes rales or rhonchi 6.GI: Soft, minimal epigastric distention, mild epigastric tenderness. No lower abdominal tenderness. 7.MSK: Normocephalic/Atraumatic, Extremities w/o deformity or ttp No cyanosis or clubbing, Normal movement of all extremities 8.Skin: Warm, Dry. No rashes or lesions. 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 Sensation grossly intact, no focal neurologic deficits. 10.Psych: (AAO) x3. Appropriate mood and affect Sign Out <Fidel Smith DO - Last Filed: 06/25/20 07:25> Sign Out Data: Sign Out Comment: Follow-up on labs, imaging, EKG Last updated by Fidel Smith DO at 06/25/20 07:26
[2020-06-25 07:42] LABS: Abs Immature Grans 0.05 10^3/uL (0.0-0.06); Absolute Basophil Count 0.02 10^3/uL (0.0-0.2); Absolute Lymphocyte Count 0.86 10^3/uL (1.2-3.4); Absolute Monocyte Count 1.08 10^3/uL (0.1-0.8); Basophils % 0.2; HCT 51.6 % (40.0-50.0); HGB 17.5 g/dL (13.5-17.5); Immature Grans % 0.4; Lymphocytes % 7.7; MCH 33.1 pg (27.0-33.0); MCHC 33.9 % (32.0-36.0); MCV 97.5 fL (80-95); MPV 9.7 fL (8.0-11.0); Monocytes % 9.6; Neutrophils % 82.1; Nucleated RBC 0 %; Platelet Count 249 10^3/uL (130-400); RBC 5.29 10^6/uL (4.36-5.78); RDW 13.9 % (11.8-14.1); RDW-SD 50.5 fL; WBC 11.21 10^3/uL (4.4-10.8)
[2020-06-25] MEDS: Normal Saline 1,000 ML 1000 ML IV (07:44)
[2020-06-25] MEDS: ACETAMINOPHEN 1,000 MG/100 ML BTL 400 MG IVPB (07:44)
--- NOTE | 2020-06-25 07:45 | RT.EKG_ITS ---
APPROVED REPORT Exam: Resting ECG Reason for Exam: gastric pain Patient Location: E HR:106 bpm ECG Measurements Heart Rate 106 AXIS NV 136 P 55 QRSd 78 QRS -28 QT 353 T 12 QTc 468 Conclusion Sinus tachycardia...rate> 99 Probable left atrial enlargement...P >50mS, <-0.10mV V1 Inferior infarct, old...Q >35mS, II III aVF
[2020-06-25 07:56] LABS: PTT Activated 26.9 sec (21.0-27.5); Prothrombin Time 10.5 sec (9.3-11.0)
[2020-06-25 07:58] LABS: Bilirubin Small (Negative); Blood Moderate (Negative); Clarity Cloudy (Clear); Glucose 250 mg/dL (Negative); Ketones 15 mg/dL (Negative); Leukocyte Esterase Small (Negative); Nitrite Negative (Negative); Specific Gravity >= 1.030 (1.005-1.025); pH 5.5 (5-8)
[2020-06-25 07:59] LABS: ALT 22 U/L (16-63); AST 17 U/L (15-37); Albumin 3.1 g/dL (3.4-5.0); Alkaline Phosphatase 168 U/L (46-116); BUN 9 mg/dL (7-18); Bilirubin, Total 1.2 mg/dL (0.2-1.0); Calcium 9.5 mg/dL (8.5-10.1); Chloride 98 mmol/L (98-107); Glucose 205 mg/dL (74-106); Lipase 669 U/L (73-393); Sodium 136 mmol/L (136-145); Total Protein 8.4 g/dL (6.4-8.2)
[2020-06-25] MEDS: Lidocaine 5% Patch 1 PATCH TP (08:00)
[2020-06-25] MEDS: Sucralfate 1 GM TAB PO ×2 (08:03→20:07)
[2020-06-25 08:04] LABS: ETHANOL BLOOD < 3.0 mg/dL (<3); Troponin I < 0.05 ng/mL (<0.06)
[2020-06-25 08:05] LABS: Bacteria Many HPF (Negative); C & S Indicated? Yes; Casts Negative LPF (Negative); Crystals Negative HPF (Negative); Epithelial Cells Rare HPF (Negative); Mucus Trace (Negative); RBC >50 HPF (0-2)
[2020-06-25] MEDS: Omnipaque 350 MG/ML 100 ML BTL IJ (08:50)
[2020-06-25] MEDS: Normal Saline - Diluent 50 ML VIAL IV (08:51)
[2020-06-25] MEDS: Normal Saline Flush 10 ML SYR IVP ×3 (08:51→20:10)
[2020-06-25 09:57] LABS: Source Nasal/Nares
--- NOTE | 2020-06-25 12:30 | W.PM.HP.N ---
Date of service: 06/25/20 Time of Service: 12:30 Assessment and Plan Assessment and plan (1) Acute pancreatitis: Start date: 06/25/20 Start time: 13:22 Status: Acute Assessment and plan: From chronic alcohol use. Will give 200/ml IVF, NPO CT with questionable small abscess levaquin in setting of also UTI, Morphine for pain, with nucynta as needed Thiamine, folate, MVI he states only 1/2 a beer yesterday otherwise no alcohol in over a week Lipase at 669 c/o pain to abd and back, will continue to monitor patient status (2) Alcoholism, chronic: Start date: 06/25/20 Start time: 13:19 Status: Acute Assessment and plan: as above (3) Deep vein thrombosis (DVT) of right upper extremity: Start date: 06/25/20 Start time: 13:27 Status: Chronic Assessment and plan: On eliquis However CT done yesterday concern for DVT in RLE will get u/s to r/o DVT to RLE Qualifiers: Chronicity: chronic (4) Leukocytosis: Start date: 06/25/20 Start time: 13:28 Status: Acute Assessment and plan: up to 11K, reviewing past wbc's he has not been elevated in the past, there is possibility of abscess around the pancreas. Blood cultures obtained. Will continue to monitor. treat with levaquin also question of UTI, urine culture pending. (5) Abdominal pain: Start date: 06/25/20 Start time: 13:33 Status: Acute Assessment and plan: Due to pancreatitis. As above. (6) Chronic anticoagulation: Start date: 06/25/20 Start time: 13:34 Status: Acute Assessment and plan: RUE DVT. on eliquis (7) Discharge planning issues: Start date: 06/25/20 Start time: 13:35 Status: Acute Assessment and plan: Will be discharged home when medically ready above case discussed with Dr. Duvall History of Present Illness History of Present Illness Chief Complaint: Pancreatitis, Alcohol withdrawal Narrative: 60 y.o male presents to [facility] ED after over a week of persistant abd pain, body aches. Mr. Colin states he tried to drink half a beer yesterday but was unable to due to severe abdominal and body pain. His last drink was 1 week prior. Labs in the ED reveal WBC 11.21, Gap 12.o, glucose 205, total bili 1.2, alk posh 168, total protein 8.4, Lipase 669, urine revealed positive blood, leuk est. wbc, urine culture sent. He was asked to be admitted by hospitalist group for further management. Abd/pelvic CT showed development of inflammatory changes around pancreas for acute pancreatitis, inflammatory collection posterior to the head of the pancreas reflecting possible small abscess or phlegmon, he does however have body aches and leukocytosis. Will obtain crp, lactate, procal, IVF inititated at 200/hr, NPO, blood cultures. Levaquin started. CIWA protocol initiated, but if he truly has not drank alcohol he should be over withdrawal. He denies CP, SOB, N/V/d. Review of Systems All systems reviewed & are unremarkable except as noted in HPI and below PFSH Medical History Alcohol withdrawal ARDS (adult respiratory distress syndrome) Aspiration pneumonia COVID-19 ruled out by laboratory testing HTN (hypertension) Hx of hyperlipidemia Myocardial infarction x 2 Pancreatitis Pancreatitis, chronic Presence of pancreatic duct stent (~01/2018) Sean Sears Surgical History S/P ERCP (~01/2018) Sean Sears Family History Mother Alcohol abuse Father Alcohol abuse Social History Smoking/Tobacco Use Status: Current every day Tobacco Type: cigarettes Smoking packs per day: 1 Smoking cigarettes per day: 20.0 Smoking risk assessment performed?: Yes Alcohol Intake: current Alcohol Intake frequency: 3 or more drinks per day Alcohol type: beer Drug use: Occasionally Substance use type: marijuana Housing: apartment Do you feel safe at home: Yes Do you feel safe in your relationship?: Yes Meds Allergies and Home Medications Allergies Allergy/AdvReac Type Severity Reaction Status Date / Time Opioids - Morphine Analogues Allergy Mild urticaria Verified 06/25/20 07:48 Penicillins Allergy Unverified 06/25/20 07:48 Home Medications Medication Instructions Recorded Confirmed Type Creon 1 cap PO AC & HS #120 cap 01/28/20 06/25/20 Rx Eliquis 5 mg PO BID #60 tab 01/28/20 06/25/20 Rx folic acid 1 mg PO DAILY #30 tab 01/28/20 06/25/20 Rx guaifenesin [Mucinex] 600 mg PO BID PRN #20 tab 01/28/20 06/25/20 Rx tamsulosin 0.8 mg PO DAILY #30 cap 02/07/20 06/25/20 Rx omeprazole magnesium [Prilosec OTC] 20 mg PO DAILY #60 tab 04/30/20 06/25/20 Rx sucralfate [Carafate] 1 g PO BID #60 tab 04/30/20 06/25/20 Rx apixaban [Eliquis] 5 mg PO BID #30 tab 06/18/20 06/25/20 Rx Exam Const General: cooperative, uncomfortable and ill appearing chronically Nutritional Appearance: not well nourished Orientation: alert, awake and oriented x3 HENMT Head: normal to inspection, normocephalic and atraumatic Face and sinus: normal facial exam Eyes Conjunctivae: conjunctivae normal EOM: EOM intact bilaterally Neck Neck: normal visual inspection, full ROM and no lymphadenopathy Thyroid: thyroid normal Lymphatic: no lymphadenopathy noted Chest Chest: normal inspection of the chest Resp Effort & Inspection: normal respiratory effort and able to speak in complete sentences Auscultation: clear to auscultation bilaterally Cardio Jugular venous pressure: no JVD Rate: regular rate Rhythm: regular rhythm Heart Sounds: S1 normal and S2 normal GI Inspection: distended Palpation: not soft and tender in the epigastrum Auscultation: hyperactive bowel sounds General: deferred Skin General skin exam: no rashes or lesions noted Neuro General: patient alert, patient awake and patient oriented x3 Cognition: normal cognition Speech: speech normal Extrem General: normal to inspection and full ROM Psych Appearance: grossly normal, poorly kempt and disheveled Mental Status: other Mood: other Insight: poor Judgment: poor Results Labs Result diagrams: 06/25/20 07:33 06/25/20 07:33 Labs: Laboratory Results - last 24 hr 06/25/20 06/25/20 06/25/20 07:33 07:33 07:33 WBC 11.21 H RBC 5.29 Hgb 17.5 Hct 51.6 H MCV 97.5 H MCH 33.1 H MCHC 33.9 RDW 13.9 Plt Count 249 MPV 9.7 Immature Gran % 0.4 Neutrophils % 82.1 Lymphocytes % 7.7 Monocytes % 9.6 Eosinophils % 0.0 Basophils % 0.2 Nucleated RBC % 0 Absolute Neutrophils 9.20 H Absolute Lymphocytes 0.86 L Absolute Monocytes 1.08 H Absolute Eosinophils 0.00 Absolute Basophils 0.02 PT 10.5 INR 1.0 APTT 26.9 Sodium 136 Potassium 4.0 Chloride 98 Carbon Dioxide 26.0 Anion Gap 12.0 H BUN 9 Creatinine 1.0 Estimated GFR/1.73 m2 >= 60.00 Glucose 205 H Calcium 9.5 Total Bilirubin 1.2 H AST 17 ALT 22 Alkaline Phosphatase 168 H Troponin I < 0.05 Total Protein 8.4 H Albumin 3.1 L Lipase 669 H Urine Color Urine Clarity Urine pH Ur Specific [place] Urine Protein Urine Ketones Urine Blood Urine Nitrite Urine Bilirubin Urine Urobilinogen Ur Leukocyte Esterase Urine RBC Urine WBC Ur Epithelial Cells Urine Crystals Urine Bacteria Urine Casts Urine Mucus Ur Culture Indicated? Urine Glucose Ethyl Alcohol < 3.0 COVID-19 Source 06/25/20 06/25/20 07:36 09:50 WBC RBC Hgb Hct MCV MCH MCHC RDW Plt Count MPV Immature Gran % Neutrophils % Lymphocytes % Monocytes % Eosinophils % Basophils % Nucleated RBC % Absolute Neutrophils Absolute Lymphocytes Absolute Monocytes Absolute Eosinophils Absolute Basophils PT INR APTT Sodium Potassium Chloride Carbon Dioxide Anion Gap BUN Creatinine Estimated GFR/1.73 m2 Glucose Calcium Total Bilirubin AST ALT Alkaline Phosphatase Troponin I Total Protein Albumin Lipase Urine Color Yellow Urine Clarity Cloudy Urine pH 5.5 Ur Specific [place] >= 1.030 H Urine Protein 100 H Urine Ketones 15 H Urine Blood Moderate H Urine Nitrite Negative Urine Bilirubin Small H Urine Urobilinogen 1.0 H Ur Leukocyte Esterase Small H Urine RBC >50 H Urine WBC 10-20 H Ur Epithelial Cells Rare Urine Crystals Negative Urine Bacteria Many Urine Casts Negative Urine Mucus Trace Ur Culture Indicated? Yes Urine Glucose 250 H Ethyl Alcohol COVID-19 Source Nasal/nares Last Vital Signs Temp 37.1 C 06/25/20 10:22 Pulse 107 H 06/25/20 10:22 Resp 18 06/25/20 10:22 BP 164/97 H 06/25/20 10:22 Pulse Ox 97 06/25/20 10:22 COVID-19 Screening Have you, or household traveled for leisure in last 14 days?: No Had IN PERSON contact w/suspected or confirmed C-19 person: No
[2020-06-25] MEDS: MORPHine 2 MG/ML SYR IVP ×2 (12:40→16:11)
[2020-06-25] MEDS: Normal Saline 1,000 ML 200 ML IV ×2 (12:41→20:08)
[2020-06-25 12:50] LABS: COVID-19 PCR Negative (Negative)
[2020-06-25] MEDS: levoFLOXacin 750 MG/150 ML BAG 100 MG IVPB (13:40)
[2020-06-25] MEDS: HYDROmorphone 2 MG/ML VIAL 0.5 MG IVP (20:06)
[2020-06-25] MEDS: Apixaban 5 MG TAB PO (20:07)
[2020-06-26 00:16] VITALS: BP 154/88; PULSE 101; RESP 18; TEMP 36; O2SAT 95
[2020-06-26] MEDS: Normal Saline 1,000 ML 200 ML IV ×3 (01:31→13:50)
[2020-06-26] MEDS: HYDROmorphone 2 MG/ML VIAL 0.5 MG IVP ×6 (01:39→23:55)
[2020-06-26 04:41] VITALS: BP 152/88; PULSE 98; RESP 20; TEMP 36.9; O2SAT 95
[2020-06-26] MEDS: Normal Saline Flush 10 ML SYR IVP ×4 (04:43→23:55)
[2020-06-26 07:01] LABS: Lactate 0.6 mmol/L (0.6-1.4)
[2020-06-26 07:03] LABS: Abs Immature Grans 0.04 10^3/uL (0.0-0.06); Absolute Basophil Count 0.02 10^3/uL (0.0-0.2); Absolute Eosinophil Count 0.01 10^3/uL (0.0-0.7); Absolute Lymphocyte Count 1.41 10^3/uL (1.2-3.4); Absolute Monocyte Count 0.82 10^3/uL (0.1-0.8); Basophils % 0.3; Eosinophils % 0.1; HCT 39.5 % (40.0-50.0); Immature Grans % 0.5; Lymphocytes % 18.1; MCH 32.8 pg (27.0-33.0); MCHC 32.9 % (32.0-36.0); MCV 99.7 fL (80-95); MPV 9.5 fL (8.0-11.0); Monocytes % 10.5; Neutrophils % 70.5; Nucleated RBC 0 %; Platelet Count 199 10^3/uL (130-400); RBC 3.96 10^6/uL (4.36-5.78); RDW 13.8 % (11.8-14.1); RDW-SD 51.2 fL
[2020-06-26 07:24] LABS: C-Reactive Protein 18.08 mg/dL (0.0-0.3); Magnesium 1.7 mg/dL (1.8-2.4)
[2020-06-26 07:25] LABS: Alkaline Phosphatase 99 U/L (46-116); BUN 7 mg/dL (7-18); Bilirubin, Direct 0.2 mg/dL (0.0-0.2); Bilirubin, Total 0.7 mg/dL (0.2-1.0); CREATININE 0.7 mg/dL (0.70-1.30); Chloride 106 mmol/L (98-107); Sodium 138 mmol/L (136-145)
[2020-06-26] MEDS: Apixaban 5 MG TAB PO ×2 (07:37→20:11)
[2020-06-26] MEDS: Sucralfate 1 GM TAB PO ×2 (07:37→20:11)
[2020-06-26] MEDS: Multivitamin TAB 1 TAB PO (07:37)
[2020-06-26] MEDS: Folic Acid 1 MG TAB PO (07:37)
[2020-06-26] MEDS: Thiamine 100 MG TAB PO (07:37)
[2020-06-26] MEDS: Omeprazole 20 MG CAPCR PO (07:37)
[2020-06-26 07:38] LABS: Procalcitonin 0.1 ng/mL
[2020-06-26] MEDS: Tamsulosin 0.4 MG CAPCR 0.8 MG PO (07:38)
[2020-06-26 07:42] VITALS: BP 131/84; PULSE 95; RESP 22; TEMP 36.3; O2SAT 95
[2020-06-26 07:42] LABS: Total Protein 5.7 g/dL (6.4-8.2)
[2020-06-26 07:45] LABS: Glucose 96 mg/dL (74-106)
[2020-06-26 07:46] LABS: ALT 13 U/L (16-63); AST 9 U/L (15-37); Calcium 7.9 mg/dL (8.5-10.1)
[2020-06-26] MEDS: chlorproMAZINE 25 MG TAB PO (08:53)
[2020-06-26] MEDS: Oxazepam 10 MG CAP PO ×4 (08:53→20:11)
--- NOTE | 2020-06-26 09:58 | W.PM.PROGNOT ---
Date of Service Date of service: 06/26/20 Time of Service: 09:58 Assessment and Plan Assessment and plan (1) Acute pancreatitis: Start date: 06/26/20 Start time: 10:02 Status: Acute Assessment and plan: From chronic alcohol use. Will give 200/ml IVF, trial clears this am CT with questionable small abscess levaquin in setting of also UTI, leukocytosis improving, urine cx improving Morphine for pain, with nucynta as needed Thiamine, folate, MVI he states only 1/2 a beer in the last week otherwise no alcohol in over a week, will schedule serax QID. Repeat lipase in am (2) Alcoholism, chronic: Start date: 06/26/20 Start time: 10:03 Status: Acute Assessment and plan: as above (3) Deep vein thrombosis (DVT) of right upper extremity: Start date: 06/26/20 Start time: 10:04 Status: Chronic Assessment and plan: On eliquis u/s negative for RLE DVT Qualifiers: Chronicity: chronic (4) Leukocytosis: Start date: 06/26/20 Start time: 10:04 Status: Acute Assessment and plan: Improving, on levaquin, question of small abscess vs UTI, urine cx pending. Blood cx pending (5) Abdominal pain: Start date: 06/26/20 Start time: 10:04 Status: Acute Assessment and plan: Due to pancreatitis. As above. improving (6) Chronic anticoagulation: Start date: 06/26/20 Start time: 10:05 Status: Acute Assessment and plan: RUE DVT. on eliquis (7) Discharge planning issues: Start date: 06/26/20 Start time: 10:05 Status: Acute Assessment and plan: Will be discharged home when medically ready above case discussed with Dr. Duvall Subjective Subjective Patient reports: feels better Interval history since last seen: Feeling slightly better today. Able to tolerate water. Will advance to clears. He is having hiccups. Will trial Thorazine for hiccups. Will schedule serax QID for anxiety. Monitor labs. He denies CP, SOB, N/V/D Exam Const General: cooperative, uncomfortable and ill appearing chronically Nutritional Appearance: not well nourished Orientation: alert, awake and oriented x3 HENMT Head: normal to inspection, normocephalic and atraumatic Face and sinus: normal facial exam Eyes Conjunctivae: conjunctivae normal EOM: EOM intact bilaterally Neck Neck: normal visual inspection, full ROM and no lymphadenopathy Thyroid: thyroid normal Lymphatic: no lymphadenopathy noted Chest Chest: normal inspection of the chest Resp Effort & Inspection: normal respiratory effort and able to speak in complete sentences Auscultation: clear to auscultation bilaterally Cardio Jugular venous pressure: no JVD Rate: regular rate Rhythm: regular rhythm Heart Sounds: S1 normal and S2 normal GI Inspection: distended Palpation: not soft and tender in the epigastrum Auscultation: hyperactive bowel sounds General: deferred Skin General skin exam: no rashes or lesions noted Neuro General: patient alert, patient awake and patient oriented x3 Cognition: normal cognition Speech: speech normal Extrem General: normal to inspection and full ROM Psych Appearance: grossly normal, poorly kempt and disheveled Mental Status: other Mood: other Insight: poor Judgment: poor Objective Last Vital Signs Temp 36.3 C L 06/26/20 07:42 Pulse 95 H 06/26/20 07:42 Resp 22 06/26/20 07:42 BP 131/84 06/26/20 07:42 Pulse Ox 95 06/26/20 07:42 Laboratory Results - last 24 hr 06/25/20 06/26/20 06/26/20 09:50 06:55 06:55 WBC RBC Hgb Hct MCV MCH MCHC RDW Plt Count MPV Immature Gran % Neutrophils % Lymphocytes % Monocytes % Eosinophils % Basophils % Nucleated RBC % Absolute Neutrophils Absolute Lymphocytes Absolute Monocytes Absolute Eosinophils Absolute Basophils VBG Lactate Sodium Potassium Chloride Carbon Dioxide Anion Gap BUN Creatinine Estimated GFR/1.73 m2 Glucose Calcium Magnesium 1.7 L Total Bilirubin Conjugated Bilirubin AST ALT Alkaline Phosphatase C-Reactive Protein 18.08 H Total Protein Albumin Procalcitonin 0.1 SARS-CoV-2 (PCR) Negative 06/26/20 06/26/20 06/26/20 06:55 06:55 06:55 WBC 7.80 D RBC 3.96 L Hgb 13.0 L D Hct 39.5 L D MCV 99.7 H MCH 32.8 MCHC 32.9 RDW 13.8 Plt Count 199 MPV 9.5 Immature Gran % 0.5 Neutrophils % 70.5 Lymphocytes % 18.1 Monocytes % 10.5 Eosinophils % 0.1 Basophils % 0.3 Nucleated RBC % 0 Absolute Neutrophils 5.50 Absolute Lymphocytes 1.41 Absolute Monocytes 0.82 H Absolute Eosinophils 0.01 Absolute Basophils 0.02 VBG Lactate 0.6 Sodium 138 Potassium 4.0 Chloride 106 Carbon Dioxide 24.0 Anion Gap 8.0 BUN 7 Creatinine 0.7 Estimated GFR/1.73 m2 >= 60.00 Glucose 96 D Calcium 7.9 L Magnesium Total Bilirubin 0.7 Conjugated Bilirubin 0.2 AST 9 L ALT 13 L Alkaline Phosphatase 99 C-Reactive Protein Total Protein 5.7 L Albumin 2.0 L Procalcitonin SARS-CoV-2 (PCR)
--- NOTE | 2020-06-26 11:02 | PDOC.CMIN ---
- If Service Date Differs Date of service: 06/26/20 Time of Service: 11:02 Care Management Initial Assess REASON FOR HOSPITALIZATION:: Acute pancreatitis PAST MEDICAL HISTORY/PAST SURGICAL HISTORY:: Alcohol withdrawal. ARDS (adult respiratory distress syndrome). Aspiration pneumonia. COVID-19 ruled out by laboratory testing. HTN (hypertension). S/P ERCP (~01/2018). Steffanie Sears. Hx of hyperlipidemia. Myocardial infarction. x 2. Pancreatitis. Pancreatitis, chronic. Presence of pancreatic duct stent (~01/2018). Nakul Sears.Y. PREVIOUS FUNCTIONAL STATUS/SOCIAL/FAMILY SUPPORTS:: Juan Jose reports he resides in an apartment in [place], [facility]. His previous girlfriend, and her family reside across the street. He spends his free time playing music, watching television, and talking with family and friends. He names Klarissa his previous population health coach, as a source of support, and requests support in reconnecting with him. CURRENT FUNCTIONAL STATUS:: Juan Jose was lying in bed when CM met with him. He was hiccuping and reported having increased pain, and being uncomfortable. He engaged fully with this life underwriter and was agreeable to all referrals discussed. He reported not knowing his current phone number which he stated he could provide after he returns home; CM reviewed need for contact information for referrals, and will provide outreach information to Juan Jose, as well. ADVANCE DIRECTIVES:: None on file; Juan Jose states he has a form but has not completed it yet. Has patient been provided with info about the portal/API?: Yes Did the patient sign up for the portal?: No CODE STATUS:: Full Code INSURANCE COVERAGE / FINANCIAL ISSUES:: Medicaid CURRENT HOME/COMMUNITY SERVICES/EQUIPMENT:: Juan Jose has a population health coach through [facility]. He has no other home or community services and no medical equipment. PRIMARY CARE PHYSICIAN:: Gregoria Perez MD POTENTIAL DISCHARGE NEEDS:: Follow up appointment with PCP, GAVIN referral for Cessation support, [facility] referral, Petroleum Production Engineer (Klarissa), [facility]. PATIENT/FAMILY EDUCATION NEEDS:: Discharge instructions, limitations, follow up plan of care including Ask Me Three and self management. ANTICIPATED BARRIERS TO DISCHARGE:: None identified at this time. TRANSPORTATION:: Via RCT coordinated by CM vs private vehicle with family. PLAN:: Anticipate Juan Jose will be discharged home when medically cleared by provider. He will follow up with his PCP and discharge plan of care as directed. Transport home will be via private vehicle with family vs. RCT coordinated by CM. CM will continue to support Juan Jose and discharge planning needs.
[2020-06-26] MEDS: levoFLOXacin 750 MG/150 ML BAG 100 MG IVPB (11:39)
[2020-06-26] MEDS: Finasteride 5 MG TAB PO (11:40)
--- NOTE | 2020-06-26 13:55 | PHA.REVIEW ---
Pharmacy Admission Review - Admission Clinical Review (Last Updated 06/25/20 @ 13:19 by Mabel Mayen NP) Chronic anticoagulation (Acute) Discharge planning issues (Acute) Leukocytosis (Acute) Alcoholism, chronic (Acute) Abdominal pain (Acute) Acute pancreatitis (Acute) Opioids - Morphine Analogues Allergy (Mild, Verified 06/25/20 18:22) urticaria Penicillins Allergy (Unverified 06/25/20 07:48) Height 5 ft 7 in Weight 68.492 kg Acute Pancreatitis - Comments Comments/Follow Ups: Urinalysis shows UTI, both blood and urine cultures pending. On Levaquin IV....hopefully switch to oral tomorrow. Possible abscess around pancreas. Hx alcoholism, CIWA zero. Oxazepam scheduled for both withdrawl and anxiety. Ulrasound lower extremity does not show new DVT, chronic anticoagulation for previous DVT of upper extremity. Just finished outpatient course of Antibiotics for Pneumonia. Pain 8/10, diet states regular although documented as clear liquid tray for lunch. Is retaining urine, patient on Finasteride, being bladder scanned - Renal Dosing Renal Dosing: BUN 7 mg/dL (7-18) 06/26/20 06:55 Creatinine 0.7 mg/dL (0.70-1.30) 06/26/20 06:55 Medications needing adjustments: Reviewed (CrCrl~90ml/min) - Anticoagulation Anticoagulation: Hgb 13.0 g/dL (13.5-17.5) L D 06/26/20 06:55 Hct 39.5 % (40.0-50.0) L D 06/26/20 06:55 Plt Count 199 10^3/uL (130-400) 06/26/20 06:55 INR 1.0 (0.9-1.1) 06/25/20 07:33 Creatinine 0.7 mg/dL (0.70-1.30) 06/26/20 06:55 DVT Prohphylaxis: Reviewed (Hx right upper DVT...chronic anticoagulation) Medications: Apixaban - Opiate Usage Evaluate Pain Scale/Pains Meds: Intervened (Hydromorphone, Nucynta-spoke w/provider) Scheduled Bowel Reg ordered if on Opiates?: No (Miralax ordered, DSS prn) - Relevant Labs Sodium 138 mmol/L (136-145) 06/26/20 06:55 Potassium 4.0 mmol/L (3.5-5.1) 06/26/20 06:55 Chloride 106 mmol/L (98-107) 06/26/20 06:55 Magnesium 1.7 mg/dL (1.8-2.4) L 06/26/20 06:55 C-Reactive Protein 18.08 mg/dL (0.0-0.3) H 06/26/20 06:55 Electrolytes, C-Reactive P, ESR: Reviewed (Mag not replaced at this time, Procalcitonin 0.1, Protein/Albumin down from admission, Lipase elevated @ 669) - DM Control DM Control: Glucose 96 mg/dL (74-106) D 06/26/20 06:55 Insulin Dosing: N/A - Heart Failure/MN Heart Failure/MN: Troponin I < 0.05 ng/mL (<0.06) 06/25/20 07:33 EF%, EDWINA's, B-Blockers, Diuretics: N/A - BP Control BP Control: Blood Pressure 131/84 Blood Pressure 152/88 - Qtc Review If Elevated: Reviewed (QTC 468 (Tachycardic)) - IV to PO Switch IV Medications: Reviewed (Hydromorphone, Levaquin) - Home Meds Home Med List reviewed: Intervened (Cleaned up home med list, Eliquis was entered twice) - Current meds Current Medication Order Review: Reviewed
[2020-06-26 15:19] VITALS: BP 144/87; PULSE 90; RESP 20; TEMP 37.3; O2SAT 94
[2020-06-26] MEDS: Lidocaine 2% Jelly 11 ML SYR UR (17:41)
[2020-06-26] MEDS: Normal Saline 1,000 ML 150 ML IV (18:37)
[2020-06-26 19:32] VITALS: BP 139/81; PULSE 83; RESP 16; TEMP 36.7; O2SAT 94
[2020-06-26] MEDS: Docusate Sodium 100 MG CAP PO (19:33)
[2020-06-26 23:17] VITALS: BP 136/82; PULSE 84; RESP 16; TEMP 36.6; O2SAT 94
[2020-06-27] MEDS: Normal Saline 1,000 ML 150 ML IV ×2 (00:32→06:56)
[2020-06-27 03:53] VITALS: BP 159/85; PULSE 80; RESP 18; TEMP 36.3; O2SAT 96
[2020-06-27] MEDS: HYDROmorphone 2 MG/ML VIAL 0.5 MG IVP ×2 (03:54→08:37)
[2020-06-27] MEDS: Normal Saline Flush 10 ML SYR IVP (03:55)
[2020-06-27 06:34] LABS: Abs Immature Grans 0.02 10^3/uL (0.0-0.06); Absolute Basophil Count 0.04 10^3/uL (0.0-0.2); Absolute Eosinophil Count 0.06 10^3/uL (0.0-0.7); Absolute Monocyte Count 0.49 10^3/uL (0.1-0.8); Absolute Neutrophil Count 3.17 10^3/uL (1.2-6.7); Basophils % 0.8; Eosinophils % 1.2; HCT 36.9 % (40.0-50.0); HGB 12.4 g/dL (13.5-17.5); Immature Grans % 0.4; Lymphocytes % 24.1; MCHC 33.6 % (32.0-36.0); MCV 98.1 fL (80-95); MPV 9.3 fL (8.0-11.0); Monocytes % 9.8; Neutrophils % 63.7; Nucleated RBC 0 %; Platelet Count 206 10^3/uL (130-400); RBC 3.76 10^6/uL (4.36-5.78); RDW 13.7 % (11.8-14.1); RDW-SD 50.2 fL; WBC 4.98 10^3/uL (4.4-10.8)
[2020-06-27 06:46] LABS: Anion Gap 9.9 mmol/L (3-11); BUN 5 mg/dL (7-18); CO2 22.1 mmol/L (21.0-32.0); CREATININE 0.6 mg/dL (0.70-1.30); Calcium 7.8 mg/dL (8.5-10.1); Chloride 106 mmol/L (98-107); Glucose 96 mg/dL (74-106); Lipase 29 U/L (73-393); Potassium 3.6 mmol/L (3.5-5.1); Sodium 138 mmol/L (136-145)
[2020-06-27] MEDS: Polyethylene Glycol 3350 17 GM PACKET PO (07:46)
[2020-06-27] MEDS: Docusate Sodium 100 MG CAP PO (07:47)
[2020-06-27] MEDS: Oxazepam 10 MG CAP PO ×2 (07:47→11:53)
[2020-06-27] MEDS: Apixaban 5 MG TAB PO (07:47)
[2020-06-27] MEDS: Thiamine 100 MG TAB PO (07:47)
[2020-06-27] MEDS: Omeprazole 20 MG CAPCR PO (07:47)
[2020-06-27] MEDS: Sucralfate 1 GM TAB PO (07:47)
[2020-06-27] MEDS: Multivitamin TAB 1 TAB PO (07:47)
[2020-06-27] MEDS: Tamsulosin 0.4 MG CAPCR 0.8 MG PO (07:47)
[2020-06-27] MEDS: Finasteride 5 MG TAB PO (07:48)
[2020-06-27] MEDS: Folic Acid 1 MG TAB PO (07:48)
[2020-06-27 08:01] VITALS: BP 160/88; PULSE 82; RESP 19; TEMP 36.5; O2SAT 96
[2020-06-27 11:43] VITALS: BP 169/98; PULSE 77; RESP 18; TEMP 36.5; O2SAT 96
[2020-06-27] MEDS: levoFLOXacin 750 MG/150 ML BAG 100 MG IVPB (11:54)
--- NOTE | 2020-06-27 11:54 | W.NUTRFU ---
Date of service: 06/27/20 Time of Service: 11:54 Nutritional Follow up NOTE: Pt admitted with pancreatitis with hx of alcoholism and chronic anticoagulation. BMI wnl and stable. Diet advanced to regular soft bite sized for lunch today. Juan Jose declines education on low fat diet. Will continue to be available prn. Time Spent in Nutritional Counseling and Treatment: 5
--- NOTE | 2020-06-27 13:13 | W.PM.DS.N ---
Date of service: 06/27/20 Time of Service: 13:16 DS: Diagnosis Discharge Diagnosis (1) Acute pancreatitis: Start date: 06/27/20 Start time: 13:16 Status: Resolved Asessment and Plan: Improving. Pain is improved. 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 There was a question of RLE DVT u/s r/o (4) Leukocytosis: Start date: 06/27/20 Start time: 13:22 Status: Acute Asessment and Plan: Unknown source. He does have urinary retention. Placed on levaquin on admission. Day 3. CT scan with possible small abscess or phlegmon, urinary thickening may represent cysititis Urine cx with greater than 100,000 colonies gram positive blood cultures no growth Continue levaquin for 10 day course (5) Abdominal pain: Start date: 06/27/20 Start time: 13:39 Status: Acute Asessment and Plan: Improving. as above (6) Chronic anticoagulation: Start date: 06/27/20 Start time: 13:39 Status: Acute Asessment and Plan: On apixaban as above (7) Urinary retention: Start date: 06/27/20 Start time: 13:39 Status: Acute Asessment and Plan: He did require to be straight cathed while here, he states up coming appt with urology this week. Placed him on finasteride in addition to flomax he has had been voiding better since. discussed with Dr. Duvall Discharge Plan Disposition Patient Disposition: HOME Condition: Stable Discharge Details Reason For Visit: acute pancreatitis Admit Date/Time: 06/25/20 10:05 Admit Provider: Jaspreet Duvall Attending Provider: Jaspreet Duvall Primary Care Provider: Benjamin Bustillos [facility] Course Hospital Course: 60 y.o male presented to [facility] ED after over a week of persistant abd pain, body aches. Mr. Colin states he tried to drink half a beer prior to day of discharge but was unable to; due to severe abdominal and body pain. His last drink was 1 week prior. Labs in the ED reveal WBC 11.21, Gap 12.o, glucose 205, total bili 1.2, alk posh 168, total protein 8.4, Lipase 669, urine revealed positive blood, leuk est. wbc, urine culture sent. He was asked to be admitted by hospitalist group for further management. Over course of treatment patient was made NPO on admission d/t severe abd pain with eating that wrapped around his back with c/o all over body aches. He stated this was the worse he had ever felt. He did not have any withdrawal symptoms over his course of stay. He did have anxiety but his last drinking binge was over a week ago. He was given serax for anxiety which appeared to help and po pain medication that was effective. Lactate was normal. Leukocytosis improved after [address] was revealing for phlegmon vs abscess vs cystitis. he has had three days worth with improving leukocytosis to normalizing level. CRP on admission was 18 down to 9.66 today. Procal 0.1. Will continue levaquin for another 7 days for total 10 day course. Follow up with PCP on Mon or . He did require cath for urine while in the hospital. He has hx of urine retention. Initiated proscar in addition to flomax. He has been able to void without difficulty. He has been tolerating soft diet without pain or n/v since yesterday. Lipase normalized to 29. He is being discharged home. Will continue levaquin, pain medication and serax with tapering dose. Follow up with PCP and urology, he denies CP, SOB, N/V/d. Home Meds and New Rx's Prescriptions: New finasteride 5 mg Tablet 5 mg PO DAILY Qty: 30 RF: 0 oxazepam 10 mg capsule 10 mg PO TID Qty: 18 RF: 0 tramadol 100 mg tablet 100 mg PO Q6H PRNQty: 20 RF: 0 levofloxacin 750 mg tablet 750 mg PO DAILY Qty: 7 RF: 0 Continued folic acid 1 mg tablet 1 mg PO DAILY Qty: 30 RF: 0 guaifenesin [Mucinex] 600 mg tablet extended release 12hr 600 mg PO BID PRN (Reason: cough) Qty: 20 RF: 0 Creon 12,000-38,000 -60,000 unit capsule,delayed release(DR/EC) 1 cap PO AC & HS Qty: 120 RF: 0 tamsulosin 0.4 mg Capsule 0.8 mg PO DAILY Qty: 30 RF: 0 omeprazole magnesium [Prilosec OTC] 20 mg tablet,delayed release (DR/EC) 20 mg PO DAILY Qty: 60 RF: 0 sucralfate [Carafate] 1 gram tablet 1 g PO BID Qty: 60 RF: 0 Eliquis 5 mg tablet 5 mg PO BID Qty: 30 RF: 0 Discharge Instructions Instructions: Levofloxacin (By mouth), Pancreatitis (DC), Leukocytosis (DC), Pancreatic Stent Placement (DC) Additional Instructions: STOP DRINKING ALCOHOL 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 Bustillos Keep your appointment with urology Take antibiotics Referrals: Benjamin Bustillos DO [Primary Care Provider] - 07/01/20 1:15 pm Activity:: Activity as Tolerated Equipment/Supplies:: No Equipment Needed Diet:: low fat Discharge Orders Discharge Orders: Discharge Order (Routine); Ordered 06/27/20 Ordered By: Mabel Myaen DS: Summary Time Spent with Patient providing and/or coordinating discharge services: Greater than 30 minutes (total discharge time 60 mins) Status at Discharge Functional status at discharge: independent ambulation Overall status at discharge: patient is progressing back to baseline Mental Status: other Speech and Movement: speech and movement normal Mood: other Affect: normal affect Exam Const General: cooperative, uncomfortable and ill appearing chronically Nutritional Appearance: not well nourished Orientation: alert, awake and oriented x3 HENMT Head: normal to inspection, normocephalic and atraumatic Face and sinus: normal facial exam Eyes Conjunctivae: conjunctivae normal EOM: EOM intact bilaterally Neck Neck: normal visual inspection, full ROM and no lymphadenopathy Thyroid: thyroid normal Lymphatic: no lymphadenopathy noted Chest Chest: normal inspection of the chest Resp Effort & Inspection: normal respiratory effort and able to speak in complete sentences Auscultation: clear to auscultation bilaterally Cardio Jugular venous pressure: no JVD Rate: regular rate Rhythm: regular rhythm Heart Sounds: S1 normal and S2 normal GI Inspection: distended Palpation: soft and no hepatosplenomegaly Auscultation: normal bowel sounds General: deferred Skin General skin exam: no rashes or lesions noted Neuro General: patient alert, patient awake and patient oriented x3 Cognition: normal cognition Speech: speech normal Extrem General: normal to inspection and full ROM Psych Appearance: grossly normal, poorly kempt and disheveled Mental Status: other Speech and Movement: speech and movement normal Mood: other Affect: normal affect Insight: poor Judgment: poor DS: Data Vitals/I&O Vitals and I&O: Vital Signs Temperature 36.5 C 06/27/20 11:43 Temperature Source Tympanic 06/27/20 11:43 Pulse 77 06/27/20 11:43 Pulse Rhythm Regular 06/27/20 08:40 Pulse 109 H 06/25/20 08:10 Respiratory Rate 18 06/27/20 11:43 Respiratory Effort Non-Labored 06/27/20 08:40 Respiratory Depth Normal 06/27/20 08:40 Respiratory Pattern Normal 06/27/20 08:40 Blood Pressure 169/98 H 06/27/20 11:43 Blood Pressure Mean 105 06/25/20 09:45 Blood Pressure Position Supine 06/25/20 07:17 Pulse Oximetry 96 06/27/20 11:43 Oxygen Delivery Method Room Air 06/27/20 11:43 Oxygen Flow Rate 0 06/27/20 11:43 Pain Level 9 06/27/20 11:43 Comment 06/27/20 11:43 Intake & Output 06/26/20 06/27/20 06/27/20 23:59 11:59 23:59 Intake Total 1566.667 / 5016.667 2307.5 / 2307.5 Output Total 1050 / 2355 850 / 1100 250 / 1100 Balance 516.667 / 2661.667 1457.5 / 1207.5 -250 / 1207.5 Intake: IV 996.667 / 3996.667 1857.5 / 1857.5 Oral 570 / 1020 450 / 450 Output: Urine 1050 / 2355 850 / 1100 250 / 1100 Other: Urine Color Light Trisha Yellow Yellow Urine Appearance Clear Clear Clear Urine Odor Normal Normal Normal Comment PVR 886 after voiding 400 then Patient straight cathed with only 400mL output. Patient refused sharp catheter placement. 650 out via straight cath, PVR after straight cath was 396 Voiding Methods Urinal Urinal Urinal Data Completed and Pending Completed studies during hospitalization [Text1]: Exam(s) US LOWER EXTREMITY VENOUS RT EXAM: US LOWER EXTREMITY VENOUS RT CLINICAL HISTORY: CT with questionable thrombus TECHNIQUE: Right lower extremity venous ultrasound performed using grayscale, color-flow, and spectral Doppler analysis. COMPARISON: No exams were available for comparison FINDINGS: The right common femoral, femoral and popliteal veins demonstrate normal compressibility, augmentation, and color Doppler. The posterior tibial veins are patent. The saphenofemoral junction is unremarkable. There is no evidence of a Braswell cyst. The soft tissues are unremarkable. IMPRESSION: No DVT. Exam(s) a CT:CT abdomen & pelvis w Exam(s) CT ABDOMEN PELVIS W EXAM: CT ABDOMEN PELVIS W CLINICAL HISTORY: worsening epigastric pain, known pnc mass, vomitin TECHNIQUE: Imaging Protocol: Axial computed tomography images with coronal and sagittal reformatted images were created and reviewed CONTRAST MATERIAL: Intravenous: Omnipaque 350 Contrast volume:100 mL Oral: No COMPARISON: CT CT CHEST/ABD/PEL W from 06/17/2020 FINDINGS: ABDOMEN: Lung Bases: Dependent atelectasis. Liver: Normal density. No measurable mass. Portal, Superior Mesenteric, and Splenic Veins: Unremarkable. Gallbladder and Biliary Tract: No radiodense calculus or dilation. Pancreas: There is now inflammatory stranding associated with the head and uncinate process of the pancreas. There is also now an area of decreased attenuation part of which is fluid density adjacent to the head and uncinate process of the pancreas. There is unchanged dilatation of the pancreatic duct. There are unchanged calcifications involving the head and body of the pancreas. Spleen: Normal. Adrenals: No masses seen. Kidneys: Normal size, contour and axis. No radiodense stones or obstructive uropathy. No masses seen. Abdominal Aorta: Abdominal portion non-dilated. Atherosclerosis. Bowel: No obstruction or bowel wall thickening. Appendix is unremarkable. There is diverticulosis of the descending and sigmoid colon but no evidence of acute diverticulitis. Mild thickening of the duodenal loops and proximal jejunum are seen. This is likely an enteritis/duodenitis secondary to the adjacent pancreatitis. There are mildly dilated loops of small bowel but no transition is seen. This may represent an ileus. Peritoneal Cavity: No ascites, collection or mesenteric inflammatory response. No free air. Lymph Nodes: Mild reactive lymph nodes are seen in the peripancreatic region. Bones: Within normal limits for the patient's age. Soft Tissues: Unremarkable. PELVIS: Bladder: There is mild thickening and enhancement of the wall of the urinary bladder. This may reflect an inflammatory infectious process. Reproductive Organs: Unremarkable as visualized. Lymph Nodes: Within normal limits. Bones: Within normal limits for the patient's age. IMPRESSION: 1. Interval development of inflammatory changes around the pancreas suspicious for an acute pancreatitis superimposed upon a setting of chronic pancreatitis. Inflammatory collection posterior to the head of the pancreas likely reflecting and phlegmon or possible small abscess. This collection measures approximately 2.2 cm. 2. Enhancement and thickening of the wall of the urinary bladder. This may represent inflammatory/infectious cystitis. Please correlate clinically. 3. Results of this exam have been verbally communicated with provider. Labs on day of discharge: Labs from last 24 hours 06/27/20 06/27/20 06:25 06:25 WBC 4.98 D RBC 3.76 L Hgb 12.4 L Hct 36.9 L MCV 98.1 H MCH 33.0 MCHC 33.6 RDW 13.7 Plt Count 206 MPV 9.3 Immature Gran % 0.4 Neutrophils % 63.7 Lymphocytes % 24.1 Monocytes % 9.8 Eosinophils % 1.2 Basophils % 0.8 Nucleated RBC % 0 Absolute Neutrophils 3.17 Absolute Lymphocytes 1.20 Absolute Monocytes 0.49 Absolute Eosinophils 0.06 Absolute Basophils 0.04 Sodium 138 Potassium 3.6 Chloride 106 Carbon Dioxide 22.1 Anion Gap 9.9 BUN 5 L Creatinine 0.6 L Estimated GFR/1.73 m2 >= 60.00 Glucose 96 Calcium 7.8 L Lipase 29 Preliminary micro results at discharge 06/25/20 12:55 Blood Culture - Preliminary Blood NO GROWTH 24 HOURS 06/25/20 12:55 Blood Culture - Preliminary Blood NO GROWTH 24 HOURS [facility] Medical History Acute UTI Alcohol withdrawal Alcoholic gastritis Alcoholism /alcohol abuse ARDS (adult respiratory distress syndrome) Aspiration pneumonia COVID-19 ruled out by laboratory testing Enterocolitis Fever Ground glass opacity present on imaging of lung HTN (hypertension) Hx of hyperlipidemia Hypokalemia Hypomagnesemia Myocardial infarction x 2 Pancreatitis Pancreatitis, chronic Pneumonia Presence of pancreatic duct stent (~01/2018) Steffanie Sears. Retention of urine Septal myocardial infarction (01/18/20) probably old, [facility] records Urinary retention Surgical History S/P ERCP (~01/2018) Steffanie Sears. Family History Mother Alcohol abuse Father Alcohol abuse Social History Smoking/Tobacco Use Status: Current every day Tobacco Type: cigarettes Smoking packs per day: 1 Smoking cigarettes per day: 20.0 Smoking risk assessment performed?: Yes Alcohol Intake: current Alcohol Intake frequency: 3 or more drinks per day Alcohol type: beer Drug use: Occasionally Substance use type: marijuana Housing: apartment Do you feel safe at home: Yes Do you feel safe in your relationship?: Yes
[2020-06-27 14:05] LABS: C-Reactive Protein 9.66 mg/dL (0.0-0.3)
--- NOTE | 2020-06-27 14:43 | CHAPLAIN ---
I had a brief visit with Juan Jose. He was resting in bed, but said he was being discharged soon.
[2020-06-27 14:55] LABS: ALT 11 U/L (16-63); AST 12 U/L (15-37); Albumin 1.8 g/dL (3.4-5.0); Alkaline Phosphatase 87 U/L (46-116); Bilirubin, Direct 0.2 mg/dL (0.0-0.2); Bilirubin, Total 0.5 mg/dL (0.2-1.0); Total Protein 4.9 g/dL (6.4-8.2)
--- NOTE | 2020-06-27 16:56 | CMDISCH_ITS ---
LACE Index Scoring Tool - Questions: Length of Stay (in days): 2 Acuity (Admit via E.D.?): Yes Comorbidities: Liver or Renal Disease E.D. Visits: 14 - Answers: Total Score: 14 Risk of Readmission: High Risk Care Management Discharge Reason for Hospitalization: Acute pancreatitis Discharge Plan: I just want to go home. Juan Jose was short with this technical report writer, stating I've got that all covered, when CM offered to coordinate [facility] transport for his follow up appointments. CM attempted to review referrals initiated per his request (GAVIN-smoking cessation, food support, barriers to medical care, as well as [facility] and [employer], CM also provided [facility] brochure) as Juan Jose was fully engaged during discussion yesterday where he requested additonal supports. Juan Jose requested this technical report writer to have Kena take the junk out of his arms. When CM reviewed [facility] [place], Juan Jose reported, that's not done yet, great it won't be til 5 o'clock, I was ready 45 minutes ago. CM apologized and validated Juan Jose wanting to return home. CM reviewed case needs with GAVIN Morris and [facility]. Per discussion with Katt, she is going to provide a home visit tomorrow, 06/28/20 and call this technical report writer from Juan Jose Li home to provide contact number and confirm referrals as CM is unable to process referrals without outreach number provided. Patient/Family Education Needs: Review discharge instructions, discuss Ask Me T hree. Services Needed at Discharge: Transportation ([facility] with stop at pharmacy. )
== END 2020-06-27 15:15 | disposition home or self-care (01) | DRG 439 ==
LOC: ER 10:14 → MS 10:14
PROVIDERS: Nurse Practitioner Family; Student in an Organized Health Care Education/Training Program; Admitting Provider Family Medicine; Emergency Provider Student in an Organized Health Care Education/Training Program; PCP Family Medicine; Visit Provider Family Medicine
DX: K85.20 Alcohol induced acute pancreatitis without necrosis or infection (principal); I82.721 Chronic embolism and thrombosis of deep veins of right upper extremity; N30.00 Acute cystitis without hematuria; F10.20 Alcohol dependence, uncomplicated; Z79.01 Long term (current) use of anticoagulants; Z20.822 Contact with and (suspected) exposure to COVID-19; I10 Essential (primary) hypertension; E78.5 Hyperlipidemia, unspecified; I25.2 Old myocardial infarction; K86.0 Alcohol-induced chronic pancreatitis; F17.210 Nicotine dependence, cigarettes, uncomplicated; R33.9 Retention of urine, unspecified; F41.9 Anxiety disorder, unspecified
CPT/HCPCS: 36410; 36415; 80048; 80053; 80076; 83690; 84145; 87040; 87635; 93005; 96361; 96365; 99285; 74177; 80320; 81003; 81015; 83605; 83735; 84484; 85025; 85610; 85730; 86140; 87086; 93010; 93971; 99223; 99232; 99239; J0131; J1956; J2270; J3490

== ENCOUNTER 2020-06-29 18:16 | Inpatient (IN) | payer MEDICAID, SELFPAY ==
[2020-06-29] VITALS (14 sets, daily range): BP systolic 106–171; BP diastolic 76–97; PULSE 96–109; RESP 10–27; TEMP 36.7–36.9; O2SAT 92–99
--- NOTE | 2020-06-29 18:15 | RT.EKG_ITS ---
APPROVED REPORT Exam: Resting ECG Reason for Exam: epigastric pain Patient Location: E HR:90 bpm ECG Measurements Heart Rate 90 AXIS RI 158 P 54 QRSd 77 QRS -15 QT 374 T 25 QTc 459 Conclusion Sinus rhythm...normal P axis, V-rate 60- 99 Low voltage, extremity leads...all extremity leads <0.5mV physician: no stemi, unchanged
--- NOTE | 2020-06-29 18:15 | DI.CT_ITS ---
Exam(s) CT ABDOMEN PELVIS W EXAM: CT ABDOMEN PELVIS W CLINICAL HISTORY: pancreatic abscess, worsening pain, vomiting. TECHNIQUE: Imaging Protocol: Axial computed tomography images with coronal and sagittal reformatted images were created and reviewed CONTRAST MATERIAL: Intravenous: Omnipaque 100cc Oral: None COMPARISON: CT CT ABDOMEN PELVIS W from 06/25/2020 FINDINGS: VISUALIZED LUNG BASES: No nodules nor pleural effusions evident. ABDOMEN: There is no evidence of generalized ascites. LIVER: There are no focal hepatic lesions evident. Minimal dilatation of intrahepatic ducts is noted . GALLBLADDER/BILIARY: There are no obvious gallstones. The gallbladder wall is diffusely thickened. Recommend follow-up ultrasound to determine if there calculi in the gallbladder which are not seen on CT scan. CBD is not dilated. PANCREAS: Multiple pancreatic calcifications are again noted. These are again noted be most numerous in the pancreatic head uncinate process area. Pancreatic duct is dilated but slightly less so than was previously evident. However, there is again noted previously described hypodense area intimately associated with the uncinate process of the pancreas and just posterior to the appear mesenteric vei n and inferior to the portal vein confluence and lateral to the superior mesenteric artery. This viki sures approximately 3.1 cm AP by 1.5 cm wide by and exhibits some internal septations. Probably deve loping pseudocyst although cannot exclude abscess. No gas evident. SPLEEN: Spleen is not enlarged. No obvious intrasplenic lesions. Splenic and portal veins are paten t. ADRENALS: There are no significant adrenal masses. KIDNEYS:No cysts evident. No solid renal masses. No calculi nor hydronephrosis.. ABDOMINAL AORTA: Abdominal aorta is atherosclerotic and heavily calcified peripherally. However, the re is no true aneurysm. Heavy calcification is seen at the origin of both renal arteries and there a ppears to be a probable significant stenosis at the origin of the left renal artery. LYMPH NODES:Slightly enlarged lymph node noted in the portacaval region. ABDOMINAL WALL: No evidence of significant anterior abdominal wall hernia. GI: There is no evidence of bowel obstruction, free air, nor abscess. PELVIS: GI: No evidence of appendicitis.No evidence of sigmoid diverticulitis. LYMPH NODES: There is no intrapelvic nor inguinal adenopathy. REPRODUCTIVE: Heterogeneous appearance of the prostate. URINARY BLADDER: Urinary bladder is grossly distended. OSSEOUS: No significant osseous lesions. IMPRESSION: 1. Compared to the prior CT scan of 06/25/2020 there is again noted evidence of chronic calcific panc reatitis and there is acute on chronic pancreatitis. The amount of ductal dilatation has slightly de creased but the previously described area of decreased attenuation/partial fluid density adjacent to the uncinate process slightly larger and exhibits internal septations. This is either developing pse udocyst or possible abscess in this region. This patient requires close follow to resolution pancrea tic findings. 2. Adjacent splenic and portal veins are patent/not thrombosed. 3. Gallbladder wall is diffusely thickened. Although there are no obvious gallstones are recommend f ollow-up gallbladder ultrasound. The CBD is not dilated. There is very subtle dilatation of intrahe patic ducts evident. 4. Atherosclerotic and calcified abdominal aorta as well as calcified plaque at the origin of both re nal arteries and probable significant renal artery stenosis at the origin left renal artery. Kidney size is normal. RADIATION DOSE DELIVERED: 903.28mGy.cm Total DLP DATA REPOSITORY: All CT scans at this facility are submitted to the National Radiology Data Registry (NRDR) Dose Index Registry (DIR) with the [employer] (ACR). RADIATION OPTIMIZATION: All CT scans at this facility use at least one of these dose optimization te chniques: automated exposure control; mA and/or kV adjustment per patient size (includes targeted exa ms where dose is matched to clinical indication); or iterative reconstruction.
--- NOTE | 2020-06-29 18:24 | ED.GENADUL_ITS ---
Discharge Plan Disposition Patient Disposition: [facility] INPATIENT Condition: Stable Discharge Details Clinical Impression: Acute on chronic pancreatitis, Alcoholism, chronic Primary Care Provider: Benjamin Bustillos ED Provider: Jose Luis Zhong Bradshaw Meds and New Rx's Prescriptions: No Action folic acid 1 mg tablet 1 mg PO DAILY Qty: 30 RF: 0 guaifenesin [Mucinex] 600 mg tablet extended release 12hr 600 mg PO BID PRN (Reason: cough) Qty: 20 RF: 0 Creon 12,000-38,000 -60,000 unit capsule,delayed release(DR/EC) 1 cap PO AC & HS Qty: 120 RF: 0 tamsulosin 0.4 mg Capsule 0.8 mg PO DAILY Qty: 30 RF: 0 omeprazole magnesium [Prilosec OTC] 20 mg tablet,delayed release (DR/EC) 20 mg PO DAILY Qty: 60 RF: 0 sucralfate [Carafate] 1 gram tablet 1 g PO BID Qty: 60 RF: 0 finasteride 5 mg Tablet 5 mg PO DAILY Qty: 30 RF: 0 oxazepam 10 mg capsule 10 mg PO TID Qty: 18 RF: 0 tramadol 100 mg tablet 100 mg PO Q6H PRNQty: 20 RF: 0 levofloxacin 750 mg tablet 750 mg PO DAILY Qty: 7 RF: 0 Eliquis 5 mg tablet 5 mg PO BID Qty: 30 RF: 0 Medical Decision Making <Fidel Smith DO - Last Filed: 06/29/20 19:42> 60-year-old male with a history of alcohol abuse, hypertension, hyperlipidemia, chronic pancreatitis, pancreatic mass, myocardial infarction has had previous pancreatic stents, with subsequent removal, right upper extremity DVT chronically anticoagulated with apixaban, occasional upper GI bleeds who was recently diagnosed with pneumonia and given doxycycline about 2 weeks ago, subsequently returned to the ER a week late was diagnosed with a phlegmon of the pancreatic area, as well as cystitis and UTI, subsequently admitted and then eventually discharged on Levaquin after notable improvement of his symptoms. He was discharged 2 days ago. Patient states that since then he has been unable to keep anything down, he has had severe burning when he urinates, and he has had consistent and unremitting vomiting. He denies any hematemesis though. He still does drink alcohol. And his last drink was this morning. Aside for the aforementioned complaints the patient has no other complaints at this time. He denies any chest pain, diarrhea. He states he has been taking his Levaquin as directed. physical exam demonstrates epigastric tenderness, dry mucous membranes, but no other significant abnormalities. Genital exam unremarkable. Minimal crackles in the bases. Differential is broad, however there is concern for worsening phlegmon or abscess around the pancreas. With the patient's persistent urethritis I am concerned for potential other infectious etiology including gonorrhea, chlamydia, or trichomoniasis and we will test for these. We will gently rehydrate, monitor closely and reassess 7:40 PM Laboratory work-up shows no white count or left shift. Lactate is elevated at 2.7, will rehydrate with a liter of normal saline. Potassium is low at 2.8, we will give 20 mEq IV, magnesium level is normal. Calcium is a little low at 7.7. Lipase is normal. Pending pro calcitonin. Pending trichomoniasis. Pending CAT scan. Patient remains hemodynamically stable. All from have ordered for pain control, Zofran ordered for nausea control as QTC is only 459. Patient will be signed out to my colleague Dr. Zhong for reassessment after imaging. <Jose Luis Zhong MD - Last Filed: 06/29/20 21:43> Patient signed out to me pending CT scan results. Patient is well-known to Dr. Smith but unknown to me. I sat down and reviewed the majority of his records within the last 6 to 8 months, since he has been here in the [facility]. He was discharged from this hospital 2 days ago after an admission for acute on chronic pancreatitis with associated UTI. He is still on the Levaquin. He has been home for 2 days and was drinking as soon as he was back home. Subsequently returned with nausea, vomiting, abdominal pain. Laboratory studies show that his lipase and white count are better than previous. Potassium quite low at 2.8. Lactic acid a little elevated. Patient declining the IV Tylenol ordered by Dr. Smith. He is requesting Dilaudid. CT scan is being read preliminarily by radiology tonight as worsening process involving the head of the pancreas with suspicion for potential evolving pseudocyst. Patient and I had a long 15-minute [id number] conversation regarding his end game. At this point this is nothing more than a revolving door of coming into the hospital, feeling better, going home and drinking. Without laying any blame on the patient, I did call him out on the responsibility of getting himself out of the down spiral he is in. Ultimately, the only person who is going to make a difference for this man is him making the decision to engage in and committing to taking control of his life back. With that being said, patient does require admission to be made n.p.o., hydrated, pain control and repeat MRI of the abdomen to rule out pseudocyst. Discussed with hospitalist at length who also knows the patient from prior admissions. Patient accepted for readmission to the hospital for further evaluation and management of acute on chronic pancreatitis with potential pseudocyst. Medical Records Medical records reviewed: Yes I reviewed the patient's medical records. Medical records narrative: Reviewed patient's records and imaging reports at this hospital over the course of last year. Imaging Data Radiologic Study: Imaging: CT Scan Radiologist's impression: COMPARISON: CT ABDOMEN PELVIS W 06/25/2020 8:37 AM. 06/17/2020. FINDINGS: Lungs: Motion versus atelectasis at the lung bases bilaterally. Liver: Homogeneous liver. Gallbladder and bile ducts: Mild intrahepatic ductal prominence. Correlation with lab values suggested. No calcified gallstones. There is gallbladder wall prominence which can be secondary to underdistention but should be correlated with any concern for cholecystitis. Pancreas: Peripancreatic stranding remains noted most consistent with acute pancreatitis. Calcifications are noted most consistent with chronic pancreatitis. Pancreatic ductal dilation remains identified but has decreased slightly from prior examination, measuring 9 mm in maximum dimension, previously 13 mm. Prior examination demonstrated a new area of decreased attenuation/partial fluid density adjacent to the head and uncinate process of the pancreas. On prior examination, this measured 2.5 cm in maximum dimensions. On current examination it measures 2.8 cm in maximum dimensions (series 5, image 245). This is also more well delineated with internal septations and persistent rim enhancement. This could represent a developing pseudocyst. Abscess not excluded. Spleen: Normal spleen. Adrenal glands: Normal adrenal glands. Kidneys and ureters: No hydronephrosis. Stomach and bowel: No evidence of bowel obstruction. Scattered colonic diverticula. Appendix: No evidence of appendicitis. Intraperitoneal space: No free air. Vasculature: Vascular calcifications. Calcified and noncalcified plaque in the aorta and branch vessels. Lymph nodes: Prominent peripancreatic lymph nodes are seen measuring less than 1 cm on short axis. Urinary bladder: Urinary bladder wall prominence which should be correlated with any concern for infection. Reproductive: Heterogeneous prostate. Bones/joints: Skeletal degenerative changes. Multilevel disc space narrowing and vacuum phenomenon the spine. Mild retrolisthesis L5 on S1. Soft tissues: Small bilateral fat containing inguinal hernias. IMPRESSION: 1. Acute on chronic pancreatitis with pancreatic ductal dilation, slightly decreased from prior exam. 2. Prior examination demonstrated a new area of decreased attenuation/partial fluid density adjacent to the head and uncinate process of the pancreas. This is measuring slightly larger. It is also more well delineated with internal septations and persistent rim enhancement. This could represent a developing pseudocyst. Abscess not excluded. 3. Urinary bladder wall prominence. Correlation with concern for infection suggested. 4. Mild intrahepatic ductal prominence. Gallbladder wall prominence. This can be seen with underdistention or cholecystitis. If there is a clinical concern for cholecystitis, ultrasound could be considered. Other findings/details as above. Dictated and Authenticated by: Jessica Prieto MD. Lab Data Lab results reviewed: Yes I reviewed the patient's lab results. Lab results narrative: Laboratory studies today improved compared to last admission except for significant hypokalemia which is being replaced intravenously. HPI <Fidel Smith DO - Last Filed: 06/29/20 19:42> General Date/Time Provider Initiated Documentation: 06/29/20 18:23 . HPI Narrative: 60-year-old male with a history of alcohol abuse, hypertension, hyperlipidemia, chronic pancreatitis, pancreatic mass, myocardial infarction has had previous pancreatic stents, with subsequent removal, right upper extremity DVT chronically anticoagulated with apixaban, occasional upper GI bleeds who was recently diagnosed with pneumonia and given doxycycline about 2 weeks ago, subsequently returned to the ER a week late was diagnosed with a phlegmon of the pancreatic area, as well as cystitis and UTI, subsequently admitted and then eventually discharged on Levaquin after notable improvement of his symptoms. He was discharged 2 days ago. Patient states that since then he has been unable to keep anything down, he has had severe burning when he urinates, and he has had consistent and unremitting vomiting. He denies any hematemesis though. He still does drink alcohol. And his last drink was this morning. Aside for the aforementioned complaints the patient has no other complaints at this time. He denies any chest pain, diarrhea. He states he has been taking his Levaquin as directed Related Data Home Medications Medication Instructions Recorded Confirmed Creon 1 cap PO AC & HS #120 cap 01/28/20 06/29/20 folic acid 1 mg PO DAILY #30 tab 01/28/20 06/29/20 guaifenesin [Mucinex] 600 mg PO BID PRN #20 tab 01/28/20 06/29/20 tamsulosin 0.8 mg PO DAILY #30 cap 02/07/20 06/29/20 omeprazole magnesium [Prilosec OTC] 20 mg PO DAILY #60 tab 04/30/20 06/29/20 sucralfate [Carafate] 1 g PO BID #60 tab 04/30/20 06/29/20 Eliquis 5 mg PO BID #30 tab 06/18/20 06/29/20 finasteride 5 mg PO DAILY #30 tab 06/27/20 06/29/20 levofloxacin 750 mg PO DAILY #7 tab 06/27/20 06/29/20 oxazepam 10 mg PO TID #18 cap 06/27/20 tramadol 100 mg PO Q6H PRN #20 tab 06/27/20 06/29/20 Previous Rx's Medication Instructions Recorded Creon 1 cap PO AC & HS #120 cap 01/28/20 folic acid 1 mg PO DAILY #30 tab 01/28/20 guaifenesin [Mucinex] 600 mg PO BID PRN #20 tab 01/28/20 tamsulosin 0.8 mg PO DAILY #30 cap 02/07/20 omeprazole magnesium [Prilosec OTC] 20 mg PO DAILY #60 tab 04/30/20 sucralfate [Carafate] 1 g PO BID #60 tab 04/30/20 Eliquis 5 mg PO BID #30 tab 06/18/20 finasteride 5 mg PO DAILY #30 tab 06/27/20 levofloxacin 750 mg PO DAILY #7 tab 06/27/20 oxazepam 10 mg PO TID #18 cap 06/27/20 tramadol 100 mg PO Q6H PRN #20 tab 06/27/20 Allergies Allergy/AdvReac Type Severity Reaction Status Date / Time Opioids - Morphine Analogues Allergy Mild urticaria Verified 06/29/20 18:18 Penicillins Allergy Unverified 06/29/20 18:18 General Stated Complaint: Abd Prob DMITRI: 3 Review of Systems <Fidel Smith DO - Last Filed: 06/29/20 19:42> All systems reviewed & are unremarkable except as noted in HPI and below PFSH <Fidel Smith DO - Last Filed: 06/29/20 19:42> Medical History Acute UTI Alcohol withdrawal Alcoholic gastritis Alcoholism /alcohol abuse ARDS (adult respiratory distress syndrome) Aspiration pneumonia COVID-19 ruled out by laboratory testing Enterocolitis Fever Ground glass opacity present on imaging of lung HTN (hypertension) Hx of hyperlipidemia Hypokalemia Hypomagnesemia Myocardial infarction x 2 Pancreatitis Pancreatitis, chronic Pneumonia Presence of pancreatic duct stent (~01/2018) Sean Sears Retention of urine Septal myocardial infarction (01/18/20) probably old, [facility] records Urinary retention Surgical History S/P ERCP (~01/2018) Sean Sears Family History Mother Alcohol abuse Father Alcohol abuse Social History Smoking/Tobacco Use Status: Current every day Tobacco Type: cigarettes Smoking packs per day: 1 Smoking cigarettes per day: 20.0 Smoking risk assessment performed?: Yes Alcohol Intake: current Alcohol Intake frequency: 3 or more drinks per day Alcohol type: beer Drug use: Occasionally Substance use type: marijuana Housing: apartment Do you feel safe at home: Yes Do you feel safe in your relationship?: Yes Exam <Fidel Smith DO - Last Filed: 06/29/20 19:42> Narrative Exam Narrative: 1.Const: Well-nourished, Well-developed, appearing stated age 2.Eyes: PERRL, no conjunctival injection, and symmetrical lids. 3.ENT: Atraumatic external nose and ears. dry MM. Neck: Symmetric, trachea midline, No thyromegaly. 4.CVS: +S1/S2, No murmurs or gallops. Peripheral pulses 2+ and equal in all extremities. Brisk capillary refill in all extremities. 5.RESP: Unlabored respiratory effort. Minimal crackles in the bases bilaterally 6.GI: Soft, nondistended, mild epigastric tenderness. Genital exam was unremarkable, no penile or testicular or scrotal tenderness. No discharge from the urethral meatus 7.MSK: Normocephalic/Atraumatic, Extremities w/o deformity or ttp No cyanosis or clubbing, Normal movement of all extremities 8.Skin: Warm, Dry. No rashes or lesions. 9.Neuro: management advisor II-XII grossly intact. Sensation grossly intact, no focal neurologic deficits. 10.Psych: (AAO) x3. Appropriate mood and affect Course <Fidel Smith DO - Last Filed: 06/29/20 19:42> Vital Signs Vital signs: Vital Signs Temperature 36.9 C 06/29/20 18:14 Pulse 107 H 06/29/20 18:14 Respiratory Rate 18 06/29/20 18:14 Blood Pressure 132/86 06/29/20 18:14 Pulse Oximetry 96 06/29/20 18:14 Temperature 36.9 C 06/29/20 18:14 Temperature Source Temporal Artery Scan 06/29/20 18:14 Pulse 107 H 06/29/20 18:14 Respiratory Rate 18 06/29/20 18:14 Respiratory Effort 06/29/20 18:22 Blood Pressure 132/86 06/29/20 18:14 Blood Pressure Position Sitting 06/29/20 18:14 Pulse Oximetry 96 06/29/20 18:14 Oxygen Delivery Method Room Air 06/29/20 18:14 Oxygen Flow Rate 0 06/29/20 18:14 Pain Level 10 06/29/20 18:14 Lab/Test Results Lab/Test Results: 06/29/20 18:18 Blood Blood Culture - Pending 06/29/20 18:18 Blood Blood Culture - Pending Sign Out <Fidel Smith DO - Last Filed: 06/29/20 19:42> Sign Out Data: Sign Out Comment: Recent pancreatic phlegmon. , Presents with vomiting and abdominal pain ,pending procalcitonin and CAT scan results. Last updated by Fidel Smith DO at 06/29/20 19:45
[2020-06-29 18:46] LABS: Bilirubin Negative (Negative); Blood Negative (Negative); Clarity Clear (Clear); Glucose Negative (Negative); Ketones Negative (Negative); Leukocyte Esterase Negative (Negative); Nitrite Negative (Negative); Specific Gravity 1.015 (1.005-1.025); Urobilinogen 0.2 EU/dL (Up TO 0.2)
[2020-06-29] MEDS: Normal Saline 500 ML IV (18:47)
[2020-06-29 18:52] LABS: Lactate 2.7 mmol/L (0.6-1.4)
[2020-06-29 18:59] LABS: Abs Immature Grans 0.05 10^3/uL (0.0-0.06); Absolute Basophil Count 0.03 10^3/uL (0.0-0.2); Absolute Eosinophil Count 0.14 10^3/uL (0.0-0.7); Absolute Lymphocyte Count 2.15 10^3/uL (1.2-3.4); Absolute Monocyte Count 0.51 10^3/uL (0.1-0.8); Absolute Neutrophil Count 2.64 10^3/uL (1.2-6.7); Basophils % 0.5; Eosinophils % 2.5; HCT 38.5 % (40.0-50.0); HGB 13.1 g/dL (13.5-17.5); Immature Grans % 0.9; Lymphocytes % 38.9; MCH 32.9 pg (27.0-33.0); MCV 96.7 fL (80-95); MPV 9.1 fL (8.0-11.0); Monocytes % 9.2; Nucleated RBC 0 %; Platelet Count 337 10^3/uL (130-400); RBC 3.98 10^6/uL (4.36-5.78); RDW 13.5 % (11.8-14.1); RDW-SD 48.8 fL; WBC 5.52 10^3/uL (4.4-10.8)
[2020-06-29 19:05] LABS: ALT 15 U/L (16-63); AST 25 U/L (15-37); Albumin 2.3 g/dL (3.4-5.0); Alkaline Phosphatase 101 U/L (46-116); Anion Gap 10.6 mmol/L (3-11); BUN 2 mg/dL (7-18); Bilirubin, Total 0.2 mg/dL (0.2-1.0); CO2 25.4 mmol/L (21.0-32.0); CREATININE 0.7 mg/dL (0.70-1.30); Calcium 7.7 mg/dL (8.5-10.1); Chloride 109 mmol/L (98-107); Glucose 117 mg/dL (74-106); Lipase 112 U/L (73-393); Sodium 145 mmol/L (136-145); Total Protein 6.5 g/dL (6.4-8.2)
[2020-06-29 19:09] LABS: Potassium 2.8 mmol/L (3.5-5.1)
[2020-06-29] MEDS: Omnipaque 350 MG/ML 100 ML BTL IJ (19:19)
[2020-06-29] MEDS: Normal Saline - Diluent 50 ML VIAL IV (19:19)
[2020-06-29] MEDS: POTASSIUM CHLORIDE 20 MEQ/100 ML BAG 50 MEQ IVPB (19:31)
[2020-06-29 19:47] LABS: Procalcitonin < 0.1 ng/mL
[2020-06-29] MEDS: Ondansetron 4 MG/2 ML VIAL IVP (19:52)
--- NOTE | 2020-06-29 19:56 | NUR.NOTE ---
pt continues to refuse IV tylenol Nursing Note:
[2020-06-29 20:04] LABS: Bacteria Negative HPF (Negative); C & S Indicated? No; Crystals Negative HPF (Negative); Epithelial Cells Negative HPF (Negative); Mucus Moderate (Negative); RBC Negative HPF (0-2); WBC 0-2 HPF (0-5)
--- NOTE | 2020-06-29 20:22 | DI.VRAD_ITS ---
Addendum created by Jessica Prieto MD on 06/29/2020 8:27:46 PM EDT: There is also fluid in the posterior midline subcutaneous soft tissues. This is usually secondary to edema but should be correlated with any concern for infection. Addendum created by Jessica Prieto MD on 06/29/2020 8:26:29 PM EDT: THIS REPORT CONTAINS FINDINGS THAT MAY BE CRITICAL TO PATIENT CARE. The findings were verbally communicated via telephone conference with Dr. Zhong at 8:26 PM EDT on 06/29/2020. The findings were acknowledged and understood. Initial report created on 06/29/2020 8:21:55 PM EDT: PROCEDURE INFORMATION: Exam: CT Abdomen And Pelvis With Contrast Exam date and time: 06/29/2020 7:26 PM Age: 60 years old Clinical indication: Other: Pancreatic abscess worsening pain. History of pancreatic cancer stage II. TECHNIQUE: Imaging protocol: Computed tomography of the abdomen and pelvis with contrast. Radiation optimization: All CT scans at this facility use at least one of these dose optimization techniques: automated exposure control; mA and/or kV adjustment per patient size (includes targeted exams where dose is matched to clinical indication); or iterative reconstruction. Contrast material: OMNI 350; Contrast volume: 100 ml; Contrast route: INTRAVENOUS (IV); COMPARISON: CT ABDOMEN PELVIS W 06/25/2020 8:37 AM. 06/17/2020. FINDINGS: Lungs: Motion versus atelectasis at the lung bases bilaterally. Liver: Homogeneous liver. Gallbladder and bile ducts: Mild intrahepatic ductal prominence. Correlation with lab values suggested. No calcified gallstones. There is gallbladder wall prominence which can be secondary to underdistention but should be correlated with any concern for cholecystitis. Pancreas: Peripancreatic stranding remains noted most consistent with acute pancreatitis. Calcifications are noted most consistent with chronic pancreatitis. Pancreatic ductal dilation remains identified but has decreased slightly from prior examination, measuring 9 mm in maximum dimension, previously 13 mm. Prior examination demonstrated a new area of decreased attenuation/partial fluid density adjacent to the head and uncinate process of the pancreas. On prior examination, this measured 2.5 cm in maximum dimensions. On current examination it measures 2.8 cm in maximum dimensions (series 5, image 245). This is also more well delineated with internal septations and persistent rim enhancement. This could represent a developing pseudocyst. Abscess not excluded. Spleen: Normal spleen. Adrenal glands: Normal adrenal glands. Kidneys and ureters: No hydronephrosis. Stomach and bowel: No evidence of bowel obstruction. Scattered colonic diverticula. Appendix: No evidence of appendicitis. Intraperitoneal space: No free air. Vasculature: Vascular calcifications. Calcified and noncalcified plaque in the aorta and branch vessels. Lymph nodes: Prominent peripancreatic lymph nodes are seen measuring less than 1 cm on short axis. Urinary bladder: Urinary bladder wall prominence which should be correlated with any concern for infection. Reproductive: Heterogeneous prostate. Bones/joints: Skeletal degenerative changes. Multilevel disc space narrowing and vacuum phenomenon the spine. Mild retrolisthesis L5 on S1. Soft tissues: Small bilateral fat containing inguinal hernias. IMPRESSION: 1. Acute on chronic pancreatitis with pancreatic ductal dilation, slightly decreased from prior exam. 2. Prior examination demonstrated a new area of decreased attenuation/partial fluid density adjacent to the head and uncinate process of the pancreas. This is measuring slightly larger. It is also more well delineated with internal septations and persistent rim enhancement. This could represent a developing pseudocyst. Abscess not excluded. 3. Urinary bladder wall prominence. Correlation with concern for infection suggested. 4. Mild intrahepatic ductal prominence. Gallbladder wall prominence. This can be seen with underdistention or cholecystitis. If there is a clinical concern for cholecystitis, ultrasound could be considered. Other findings/details as above. Dictated and Authenticated by: Jessica Prieto MD. Ordering:JACIEL Parra MD
[2020-06-29] MEDS: HYDROmorphone 2 MG/ML VIAL 1 MG IVP (21:07)
--- NOTE | 2020-06-29 21:52 | HPE_ITS ---
Date of service: 06/29/20 Time of Service: 21:52 Assessment and Plan Assessment and plan (1) Acute on chronic pancreatitis: Start date: 06/29/20 Status: Acute Assessment and plan: This is a 60-year-old gentleman who is a chronic alcoholic since he was a teenager. He has acute pancreatitis with recurrent alcohol use once discharged with recent hospitalization. He seems to have progressed with edema of his pancreatic head with possible pseudocyst. He will be placed on bowel rest with IV hydration and IV analgesia. Long-term patient needs to go through alcohol rehab. Watch for alcohol withdrawal. (2) Pancreatic mass: Status: Acute Assessment and plan: Advancing findings on CT scan with MRI of the abdomen ordered. Treat for possible infection while awaiting further imaging. Possible surgical consultation. (3) Alcoholism, chronic: Status: Chronic Assessment and plan: Advised complete alcohol cessation with patient thinking about going through rehabilitation though this is failed multiple times in the past. His motivation appears to be changing though insight remains borderline. (4) Deep vein thrombosis (DVT) of right upper extremity: Status: Chronic Assessment and plan: Continue anticoagulation watch for bleeding sequela. Monitor lab. 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 He had possible pneumonia prior to that admission and was switched from doxycycline to Levaquin during his hospital stay with no specific coverage for his pancreatitis and inflammation. He also was being covered for possible UTI. He was discharged 2 days prior to this admission and returned home and began drinking alcohol. He began having abdominal pain return with uncontrolled nausea and vomiting. He did state he was continue to take his Levaquin. He denied any cough or urinary symptoms. The patient is status post recurrent pancreatitis for the last 3 years with chronic pancreatitis on Creon with his meals and having had a stent in his pancreatic duct which was removed prior to these visits. He does have a DVT in his upper extremity for which he takes Eliquis and he does have occasional GI bleeds. He has a chronic history of alcohol abuse with hypertension, hyperlipidemia and recurrent acute pancreatitis on chronic pancreatitis. In the ED he agreed to admission with IV fluids for bowel rest and IV narcotics a low-dose for pain control. His CT of the abdomen was advancing with possible early pseudocyst over his pancreatic head and he will require MRI of the abdomen. The patient is strongly considering stopping alcohol. Prognosis is poor for this with the patient having been drinking since he was a teenager and throughout his adult life with no rehabilitation. 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 He moved back to [place] to be near his parents previous home in [place]. He has no family. He was when he was in his early 20s and never had children. He states that he is lonely and drinks from boredom. Insight is borderline. Review of Systems Narrative: 13 point review of systems otherwise unrevealing or stable. [facility] Medical History Acute UTI Alcohol withdrawal Alcoholic gastritis Alcoholism /alcohol abuse ARDS (adult respiratory distress syndrome) Aspiration pneumonia COVID-19 ruled out by laboratory testing Enterocolitis Fever Ground glass opacity present on imaging of lung HTN (hypertension) Hx of hyperlipidemia Hypokalemia Hypomagnesemia Myocardial infarction x 2 Pancreatitis Pancreatitis, chronic Pneumonia Presence of pancreatic duct stent (~01/2018) [facility] Retention of urine Septal myocardial infarction (01/18/20) probably old, [facility] records Urinary retention Surgical History S/P ERCP (~01/2018) [facility] Family History Mother Alcohol abuse Father Alcohol abuse Social History Smoking/Tobacco Use Status: Current every day Tobacco Type: cigarettes Smoking packs per day: 1 Smoking cigarettes per day: 20.0 Smoking risk assessment performed?: Yes Alcohol Intake: current Alcohol Intake frequency: 3 or more drinks per day Alcohol type: beer Drug use: Occasionally Substance use type: marijuana Housing: apartment Do you feel safe at home: Yes Do you feel safe in your relationship?: Yes Meds Allergies and Home Medications Allergies Allergy/AdvReac Type Severity Reaction Status Date / Time Opioids - Morphine Analogues Allergy Mild urticaria Verified 06/29/20 18:18 Penicillins Allergy Unverified 06/29/20 18:18 Home Medications Medication Instructions Recorded Confirmed Type Creon 1 cap PO AC & HS #120 cap 01/28/20 06/29/20 Rx folic acid 1 mg PO DAILY #30 tab 01/28/20 06/29/20 Rx guaifenesin [Mucinex] 600 mg PO BID PRN #20 tab 01/28/20 06/29/20 Rx tamsulosin 0.8 mg PO DAILY #30 cap 02/07/20 06/29/20 Rx omeprazole magnesium [Prilosec OTC] 20 mg PO DAILY #60 tab 04/30/20 06/29/20 Rx sucralfate [Carafate] 1 g PO BID #60 tab 04/30/20 06/29/20 Rx finasteride 5 mg PO DAILY #30 tab 06/27/20 06/29/20 Rx levofloxacin 750 mg PO DAILY #7 tab 06/27/20 06/29/20 Rx oxazepam 10 mg PO TID #18 cap 06/27/20 Rx tramadol 100 mg PO Q6H PRN #20 tab 06/27/20 06/29/20 Rx Exam Narrative Exam Narrative: General: Patient appears older than stated age, light skin color with red hair and marked actinic changes over sun exposed areas. He has a flattened affect with fair eye contact and labile mood. He is in moderate distress from his abdominal bloating and discomfort. HEENT: Normocephalic, disheveled hair, eyes with pupils equal and reactive to light symmetrically, extraocular movement intact and sclera anicteric. Face has coarsened features. Oropharynx with poor dentition and moist mucosa. Neck: Supple without JVD. Back: Stooped posture with no CVA tenderness. Lungs: Bronchovesicular breath sounds diffusely with decreased aeration bilaterally but no focalizing rales or rhonchi. Diffuse scant upper airway noise. No expiratory wheeze. Heart: Regular rate and rhythm with no appreciable murmur gallop. Abdomen: Protuberant contour, guarding upper abdomen with tenderness to palp ation without true rebound. Soft to palpation of lower abdomen. Bowel sounds positive but hypoactive diffusely. Genitalia/rectal: Exam deferred. Extremities: Without pitting edema, cyanosis or clubbing. Peripheral pulses intact. Skin: Diffuse actinic changes over sun exposed areas with slight erythematous confluent rash over malar face and around mouth without open ulcerations. Pale, warm and dry. Neuro: Cranial nerves II through XII grossly intact, no focalizing motor deficits. No tremor or asterixis. Psych: Depressed mood with flattened affect and some labile needs to affect. Occasionally tearful when discussing past history. He appears sad. No abnormal thought processes. Remote and recent memory intact. Results Imaging Imaging Studies: Exam: CT Abdomen And Pelvis With Contrast Exam date and time: 06/29/2020 7:26 PM Age: 60 years old Clinical indication: Other: Pancreatic abscess worsening pain. History of pancreatic cancer stage II. TECHNIQUE: Imaging protocol: Computed tomography of the abdomen and pelvis with contrast. Radiation optimization: All CT scans at this facility use at least one of these dose optimization techniques: automated exposure control; mA and/or kV adjustment per patient size (includes targeted exams where dose is matched to clinical indication); or iterative reconstruction. Contrast material: OMNI 350; Contrast volume: 100 ml; Contrast route: INTRAVENOUS (IV); COMPARISON: CT ABDOMEN PELVIS W 06/25/2020 8:37 AM. 06/17/2020. FINDINGS: Lungs: Motion versus atelectasis at the lung bases bilaterally. Liver: Homogeneous liver. Gallbladder and bile ducts: Mild intrahepatic ductal prominence. Correlation with lab values suggested. No calcified gallstones. There is gallbladder wall prominence which can be secondary to underdistention but should be correlated with any concern for cholecystitis. Pancreas: Peripancreatic stranding remains noted most consistent with acute pancreatitis. Calcifications are noted most consistent with chronic pancreatitis. Pancreatic ductal dilation remains identified but has decreased slightly from prior examination, measuring 9 mm in maximum dimension, previously 13 mm. Prior examination demonstrated a new area of decreased attenuation/partial fluid density adjacent to the head and uncinate process of the pancreas. On prior examination, this measured 2.5 cm in maximum dimensions. On current examination it measures 2.8 cm in maximum dimensions (series 5, image 245). This is also more well delineated with internal septations and persistent rim enhancement. This could represent a developing pseudocyst. Abscess not excluded. Spleen: Normal spleen. Adrenal glands: Normal adrenal glands. Kidneys and ureters: No hydronephrosis. Stomach and bowel: No evidence of bowel obstruction. Scattered colonic diverticula. Appendix: No evidence of appendicitis. Intraperitoneal space: No free air. Vasculature: Vascular calcifications. Calcified and noncalcified plaque in the aorta and branch vessels. Lymph nodes: Prominent peripancreatic lymph nodes are seen measuring less than 1 cm on short axis. Urinary bladder: Urinary bladder wall prominence which should be correlated with any concern for infection. Reproductive: Heterogeneous prostate. Bones/joints: Skeletal degenerative changes. Multilevel disc space narrowing and vacuum phenomenon the spine. Mild retrolisthesis L5 on S1. Soft tissues: Small bilateral fat containing inguinal hernias. IMPRESSION: 1. Acute on chronic pancreatitis with pancreatic ductal dilation, slightly decreased from prior exam. 2. Prior examination demonstrated a new area of decreased attenuation/partial fluid density adjacent to the head and uncinate process of the pancreas. This is measuring slightly larger. It is also more well delineated with internal septations and persistent rim enhancement. This could represent a developing pseudocyst. Abscess not excluded. 3. Urinary bladder wall prominence. Correlation with concern for infection suggested. 4. Mild intrahepatic ductal prominence. Gallbladder wall prominence. This can be seen with underdistention or cholecystitis. If there is a clinical concern for cholecystitis, ultrasound could be considered. Other findings/details as above. Labs Result diagrams: 06/30/20 06:50 06/30/20 06:50 Labs: Laboratory Results - last 24 hr 06/29/20 06/29/20 06/29/20 18:30 18:40 18:40 WBC RBC Hgb Hct MCV MCH MCHC RDW Plt Count MPV Immature Gran % Neutrophils % Lymphocytes % Monocytes % Eosinophils % Basophils % Nucleated RBC % Absolute Neutrophils Absolute Lymphocytes Absolute Monocytes Absolute Eosinophils Absolute Basophils VBG Lactate 2.7 H* Sodium 145 Potassium 2.8 L* Chloride 109 H Carbon Dioxide 25.4 Anion Gap 10.6 BUN 2 L Creatinine 0.7 Estimated GFR/1.73 m2 >= 60.00 Glucose 117 H Calcium 7.7 L Magnesium Total Bilirubin 0.2 AST 25 ALT 15 L Alkaline Phosphatase 101 Total Protein 6.5 Albumin 2.3 L Lipase 112 Procalcitonin < 0.1 Urine Color Yellow Urine Clarity Clear Urine pH 7.0 Ur Specific Hendrum 1.015 Urine Protein Negative Urine Ketones Negative Urine Blood Negative Urine Nitrite Negative Urine Bilirubin Negative Urine Urobilinogen 0.2 Ur Leukocyte Esterase Negative Urine RBC Negative Urine WBC 0-2 Ur Epithelial Cells Negative Urine Crystals Negative Urine Bacteria Negative Urine Mucus Moderate Urine Other Ur Culture Indicated? No Urine Glucose Negative 06/29/20 06/29/20 18:40 18:40 WBC 5.52 RBC 3.98 L Hgb 13.1 L Hct 38.5 L MCV 96.7 H MCH 32.9 MCHC 34.0 RDW 13.5 Plt Count 337 D MPV 9.1 Immature Gran % 0.9 Neutrophils % 48.0 Lymphocytes % 38.9 Monocytes % 9.2 Eosinophils % 2.5 Basophils % 0.5 Nucleated RBC % 0 Absolute Neutrophils 2.64 Absolute Lymphocytes 2.15 Absolute Monocytes 0.51 Absolute Eosinophils 0.14 Absolute Basophils 0.03 VBG Lactate Sodium Potassium Chloride Carbon Dioxide Anion Gap BUN Creatinine Estimated GFR/1.73 m2 Glucose Calcium Magnesium 2.0 Total Bilirubin AST ALT Alkaline Phosphatase Total Protein Albumin Lipase Procalcitonin Urine Color Urine Clarity Urine pH Ur Specific Hendrum Urine Protein Urine Ketones Urine Blood Urine Nitrite Urine Bilirubin Urine Urobilinogen Ur Leukocyte Esterase Urine RBC Urine WBC Ur Epithelial Cells Urine Crystals Urine Bacteria Urine Mucus Urine Other Ur Culture Indicated? Urine Glucose Last Vital Signs Temp 36.8 C 06/29/20 21:09 Pulse 102 H 06/29/20 21:46 Resp 13 06/29/20 21:46 BP 129/78 06/29/20 21:46 Pulse Ox 93 06/29/20 21:40 COVID-19 Screening Have you, or household traveled for leisure in last 14 days?: No Had IN PERSON contact w/suspected or confirmed C-19 person: No
[2020-06-29 22:29] LABS: Source Nasal/Nares
[2020-06-29] MEDS: Pantoprazole 40 MG VIAL IVP (23:33)
[2020-06-29] MEDS: HYDROmorphone 2 MG/ML VIAL 0.5 MG IVP (23:33)
[2020-06-29] MEDS: POTASSIUM CHLORIDE/0.9% NACL 1,000 ML 125 MEQ IV (23:34)
[2020-06-29] MEDS: levoFLOXacin 750 MG/150 ML BAG 100 MG IVPB (23:58)
[2020-06-30] VITALS (14 sets, daily range): BP systolic 164–197; BP diastolic 88–112; PULSE 36–93; RESP 16–20; TEMP 36.6–36.8; O2SAT 92–97
[2020-06-30] MEDS: Normal Saline Flush 10 ML SYR (00:32)
[2020-06-30] MEDS: HYDROmorphone 2 MG/ML VIAL 0.5 MG IVP ×5 (03:15→14:18)
[2020-06-30] MEDS: Normal Saline Flush 10 ML SYR IVP ×7 (03:16→21:42)
[2020-06-30 07:12] LABS: Lactate 1.3 mmol/L (0.6-1.4)
[2020-06-30 07:18] LABS: Abs Immature Grans 0.03 10^3/uL (0.0-0.06); Absolute Basophil Count 0.03 10^3/uL (0.0-0.2); Absolute Eosinophil Count 0.15 10^3/uL (0.0-0.7); Absolute Lymphocyte Count 1.42 10^3/uL (1.2-3.4); Absolute Monocyte Count 0.63 10^3/uL (0.1-0.8); Basophils % 0.4; HCT 40.1 % (40.0-50.0); HGB 13.4 g/dL (13.5-17.5); Immature Grans % 0.4; Lymphocytes % 19.2; MCH 32.6 pg (27.0-33.0); MCHC 33.4 % (32.0-36.0); MCV 97.6 fL (80-95); Monocytes % 8.5; Neutrophils % 69.5; Nucleated RBC 0 %; Platelet Count 335 10^3/uL (130-400); RBC 4.11 10^6/uL (4.36-5.78); RDW 13.6 % (11.8-14.1); RDW-SD 49.1 fL; WBC 7.38 10^3/uL (4.4-10.8)
[2020-06-30 07:22] LABS: Absolute Neutrophil Count 5.13 10^3/uL (1.2-6.7)
[2020-06-30 07:28] LABS: Prothrombin Time 10.2 sec (9.3-11.0)
[2020-06-30 07:42] LABS: ALT 16 U/L (16-63); AST 20 U/L (15-37); Albumin 2.2 g/dL (3.4-5.0); Alkaline Phosphatase 100 U/L (46-116); Anion Gap 9.9 mmol/L (3-11); BUN 3 mg/dL (7-18); Bilirubin, Total 0.3 mg/dL (0.2-1.0); CO2 24.1 mmol/L (21.0-32.0); CREATININE 0.7 mg/dL (0.70-1.30); Calcium 7.5 mg/dL (8.5-10.1); Chloride 111 mmol/L (98-107); Glucose 108 mg/dL (74-106); Lipase 83 U/L (73-393); Potassium 3.5 mmol/L (3.5-5.1); Sodium 145 mmol/L (136-145); Total Protein 6.2 g/dL (6.4-8.2)
[2020-06-30] MEDS: POTASSIUM CHLORIDE/0.9% NACL 1,000 ML 125 MEQ IV (07:44)
[2020-06-30] MEDS: Apixaban 5 MG TAB PO (07:44)
[2020-06-30] MEDS: Finasteride 5 MG TAB PO (07:44)
[2020-06-30] MEDS: Tamsulosin 0.4 MG CAPCR 0.8 MG PO (07:44)
[2020-06-30 08:28] LABS: C-Reactive Protein 2.56 mg/dL (0.0-0.3)
[2020-06-30] MEDS: IMIPENEM/CILASTATIN 500 MG in Normal Saline 100 ML 200 MG IVPB ×3 (08:35→19:52)
[2020-06-30] MEDS: MULTIVITAMIN 10 ML, THIAMINE 100 MG, FOLIC ACID 1 MG in DEXTROSE 5%-0.45% SALINE 1,000 ML 150 ML IV (10:02)
[2020-06-30 10:29] LABS: COVID-19 PCR Negative (Negative)
--- NOTE | 2020-06-30 10:39 | PHA.REVIEW ---
Pharmacy Admission Review - Admission Clinical Review (Last Reviewed 06/29/20 @ 21:52 by Alejo Gonzalez) Pancreatic mass (Acute) Acute on chronic pancreatitis (Acute) Alcoholism, chronic (Acute) Opioids - Morphine Analogues Allergy (Mild, Verified 06/29/20 18:18) urticaria Penicillins Allergy (Unverified 06/29/20 18:18) Height 5 ft 7 in Weight 71.668 kg - Renal Dosing Renal Dosing: BUN 3 mg/dL (7-18) L 06/30/20 06:50 Creatinine 0.7 mg/dL (0.70-1.30) 06/30/20 06:50 Medications needing adjustments: Reviewed (CRCL ~90ML/MIN) - Anticoagulation Anticoagulation: Hgb 13.4 g/dL (13.5-17.5) L 06/30/20 06:50 Hct 40.1 % (40.0-50.0) 06/30/20 06:50 Plt Count 335 10^3/uL (130-400) 06/30/20 06:50 INR 1.0 (0.9-1.1) 06/30/20 06:50 Creatinine 0.7 mg/dL (0.70-1.30) 06/30/20 06:50 DVT Prohphylaxis: Reviewed Medications: Enoxaparin Therapeutic Anticoagulation: N/A (STOPPED APIXABAN TODAY) - Relevant Labs Sodium 145 mmol/L (136-145) 06/30/20 06:50 Potassium 3.5 mmol/L (3.5-5.1) 06/30/20 06:50 Chloride 111 mmol/L (98-107) H 06/30/20 06:50 Magnesium 2.0 mg/dL (1.8-2.4) 06/29/20 18:40 C-Reactive Protein 2.56 mg/dL (0.0-0.3) H 06/30/20 06:50 - DM Control DM Control: Glucose 108 mg/dL (74-106) H 06/30/20 06:50 Insulin Dosing: N/A - BP Control BP Control: Blood Pressure 166/90 Blood Pressure 174/92 Blood Pressure 197/112 Blood Pressure 164/91 Blood Pressure 171/97 If elevated: Reviewed - Home Meds Home Med List reviewed: Reviewed (pantoprazole instead of omeprazole, no tramadol ordered has IV hydromorphone for pain , NPO - no creon ordered) - Current meds Current Medication Order Review: Reviewed - Comments Comments/Follow Ups: MRCP tomorrow. imipenem/cilastin started today. banana bag daily/IVF otherwise
--- NOTE | 2020-06-30 13:18 | INITIAL_ITS ---
- If Service Date Differs Date of service: 06/30/20 Time of Service: 13:18 Care Management Initial Assess REASON FOR HOSPITALIZATION:: Acute on chronic pancreatitis, pancreatic pseudocy. PAST MEDICAL HISTORY/PAST SURGICAL HISTORY:: Medical History: Acute UTI, Alcohol withdrawal, Alcoholic gastritis, Alcoholism /alcohol abuse, ARDS (adult respiratory distress syndrome),. Aspiration pneumonia, COVID-19 ruled out by laboratory testing, Enterocolitis, Fever, Ground glass opacity present on imaging of lung,. HTN (hypertension), Hx of hyperlipidemia, Hypokalemia, Hypomagnesemia, Myocardial infarction x 2, Pancreatitis, chronic, Pneumonia, Presence of pancreatic duct stent (~01/2018) - [place] Retention of urine,. Septal myocardial infarction (01/18/20) - probably old, [facility] records, and Urinary retention. Surgical History: S/P ERCP (~01/2018) - [place] PREVIOUS FUNCTIONAL STATUS/SOCIAL/FAMILY SUPPORTS:: Juan Jose lives alone in [place]. He is unemployed and spends his time playing his guitar and watching television. He reports having no real friends or family in the area. CURRENT FUNCTIONAL STATUS:: Juan Jose is laying in bed watching television when CM comes to meet with him. He is pleasant, talkative, and shares he is hopeful the doctors can figure out what is going on with him. He reports he has no money or transportation, so has been unable to worm picker his medication. CM will continue to follow. ADVANCE DIRECTIVES:: None on file; patient says he has a form at home but has not yet completed it. Has patient been provided with info about the portal/API?: Yes Did the patient sign up for the portal?: No CODE STATUS:: Full Code INSURANCE COVERAGE / FINANCIAL ISSUES:: Medicaid. CURRENT HOME/COMMUNITY SERVICES/EQUIPMENT:: Juan Jose has a recovery operator through [facility] ([place]). He has no other home/community services and no medical equipment. PRIMARY CARE PHYSICIAN:: Benjamin Bustillos, POTENTIAL DISCHARGE NEEDS:: Follow up appointments with PCP and urology. Referrals to [facility], [facility], and [facility], if these were not sent at last admission. PATIENT/FAMILY EDUCATION NEEDS:: Discharge instructions, limitations, follow up plan of care, including Ask Me Three and self management. ANTICIPATED BARRIERS TO DISCHARGE:: None identified currently. TRANSPORTATION:: Via [facility] coordinated by CM. PLAN:: Juan Jose will likely be discharged home when medically cleared by provider. He will follow up with his PCP and discharge plan of care as directed. Transport home will be via RCT coordinated by CM. CM will continue to support Juan Jose and discharge planning needs. Readmission - Within the Past 30 Days Yes or No: Y - Date of First Admission Date of 1st Admission: 06/25/20 - Date of this Admission Date of Admission: 06/29/20 This admission was: Through ED - Office Visit Since 1st Admission Have you seen your PCP in the office since discharge?: No Had an appointment Been Scheduled?: Yes Date of Scheduled Appointment: 07/01/2020 - Speicalist Appointments Have you seen any other specialist since your 1st Admission?: No - I. Interview patient and/or Family Difficulty reaching your doctor or getting an office appt?: No Have you had trouble purchasing/ or taking medication?: Yes Describe barriers fpr purchasing or taking medication: States he has no money to pay for medication and has no transportation to get to the pharmacy. Have you had trouble with getting meals at home?: Yes Describe your typical meals since you have been home: Prepares his own meals but doesn't have enough money to buy food to last the whole month. Did you feel ready for discharge when you left the last time: No Why did you not feel ready for discharge?: Patient states he was afraid the pain would return once he got home. Did you call your physician beore you came to the ED?: No How do you think you became sick enough to come back?: Patient states he has pancreatitis and was unable to get his medications because of lack of money and transportation. - If the patient had a VNA ordered Did the patient have a VNA order?: No - Ask the Care Team Members: What do you think caused the patient to be readmitted: Patient has had consistent and unremitting vomiting since his discharge home just a few days ago. There is concern for worsening phlegmon or abscess around the pancreas. - ED visits How many ED visits in the past 12 months: 16 - Assessment for Readmission Summary of readmission circumstances, based upon interviews: Patient did not take any medications after his return home due to his inability to pay for the medications or to pick them up from the pharmacy. He became ill again with unremitting vomiting, so returned to [facility].
--- NOTE | 2020-06-30 16:17 | PGE_ITS ---
Date of Service Date of service: 06/30/20 Time of Service: 16:18 Assessment and Plan Assessment and plan (1) Acute on chronic pancreatitis: Status: Acute Assessment and plan: Alcoholic pancreatitis with pseudocyst and suspicion for abscess. Abx changed to primaxin. MRCP tomorrow. NPo. Aggressive IVF. Increase dilaudid dose. IS. Bowel regimen. If abscess confirmed, will require transfer to a tertiary care facility. (2) Pancreatic mass: Status: Acute Assessment and plan: As above (3) Alcoholism, chronic: Status: Chronic Assessment and plan: Started on CIWA with banana bag, prn ativan. Last drink 4 days ago. (4) Deep vein thrombosis (DVT) of right upper extremity: Status: Chronic Assessment and plan: The patient had stated that he had run out of eliquis at home. THe patient has been on anticoagulation since at least February. Will repeat US RUE tomorrow to assess for resolution of DVT. For now, no emergent need to resume it and DVT ppx dose of lovenox is appropriate. Qualifiers: Affected thrombotic vein of extremity: unspecified vein of extremity Chronicity: chronic Qualified Code(s): I82.721 - Chronic embolism and thrombosis of deep veins of right upper extremity (5) DVT prophylaxis: Status: Acute Assessment and plan: SC lovenox (eliquis d/c'ed). (6) Discharge planning issues: Status: Acute Assessment and plan: Full code Continues to require hospitalization. Subjective Subjective Interval history since last seen: C/o epigastric pain 10/10 right now. States dilaudid 0.5 mg is not enough - feels it needs to be increased. Nausea this am, no vomiting. No flatus. Denies chest pain, shortness of breath, dizziness. Exam Narrative Exam Narrative: General: Pleasant middle-aged male, A&Ox3, uncomfortable in bed, but in good spirits HEENT: EOMI, MMM Heart: RRR, no m/r/g Lungs: Diminished breath sounds at B bases Abdomen: soft, tender in epigastrium, + bowel sounds Extremities: no edema BLE's. Objective Last Vital Signs Temp 36.8 C 06/30/20 15:20 Pulse 76 06/30/20 15:20 Resp 18 06/30/20 15:20 BP 184/90 H 06/30/20 15:21 Pulse Ox 97 06/30/20 15:20 Laboratory Results - last 24 hr 06/29/20 06/29/20 06/29/20 18:30 18:40 18:40 WBC RBC Hgb Hct MCV MCH MCHC RDW Plt Count MPV Immature Gran % Neutrophils % Lymphocytes % Monocytes % Eosinophils % Basophils % Nucleated RBC % Absolute Neutrophils Absolute Lymphocytes Absolute Monocytes Absolute Eosinophils Absolute Basophils PT INR VBG Lactate 2.7 H* Sodium 145 Potassium 2.8 L* Chloride 109 H Carbon Dioxide 25.4 Anion Gap 10.6 BUN 2 L Creatinine 0.7 Estimated GFR/1.73 m2 >= 60.00 Glucose 117 H Calcium 7.7 L Magnesium Total Bilirubin 0.2 AST 25 ALT 15 L Alkaline Phosphatase 101 C-Reactive Protein Total Protein 6.5 Albumin 2.3 L Lipase 112 Procalcitonin < 0.1 Urine Color Yellow Urine Clarity Clear Urine pH 7.0 Ur Specific [place] 1.015 Urine Protein Negative Urine Ketones Negative Urine Blood Negative Urine Nitrite Negative Urine Bilirubin Negative Urine Urobilinogen 0.2 Ur Leukocyte Esterase Negative Urine RBC Negative Urine WBC 0-2 Ur Epithelial Cells Negative Urine Crystals Negative Urine Bacteria Negative Urine Mucus Moderate Urine Other Ur Culture Indicated? No Urine Glucose Negative COVID-19 Source SARS-CoV-2 (PCR) 06/29/20 06/29/20 06/29/20 18:40 18:40 22:20 WBC 5.52 RBC 3.98 L Hgb 13.1 L Hct 38.5 L MCV 96.7 H MCH 32.9 MCHC 34.0 RDW 13.5 Plt Count 337 D MPV 9.1 Immature Gran % 0.9 Neutrophils % 48.0 Lymphocytes % 38.9 Monocytes % 9.2 Eosinophils % 2.5 Basophils % 0.5 Nucleated RBC % 0 Absolute Neutrophils 2.64 Absolute Lymphocytes 2.15 Absolute Monocytes 0.51 Absolute Eosinophils 0.14 Absolute Basophils 0.03 PT INR VBG Lactate Sodium Potassium Chloride Carbon Dioxide Anion Gap BUN Creatinine Estimated GFR/1.73 m2 Glucose Calcium Magnesium 2.0 Total Bilirubin AST ALT Alkaline Phosphatase C-Reactive Protein Total Protein Albumin Lipase Procalcitonin Urine Color Urine Clarity Urine pH Ur Specific [place] Urine Protein Urine Ketones Urine Blood Urine Nitrite Urine Bilirubin Urine Urobilinogen Ur Leukocyte Esterase Urine RBC Urine WBC Ur Epithelial Cells Urine Crystals Urine Bacteria Urine Mucus Urine Other Ur Culture Indicated? Urine Glucose COVID-19 Source Nasal/nares SARS-CoV-2 (PCR) Negative 06/30/20 06/30/20 06/30/20 06:50 06:50 06:50 WBC RBC Hgb Hct MCV MCH MCHC RDW Plt Count MPV Immature Gran % Neutrophils % Lymphocytes % Monocytes % Eosinophils % Basophils % Nucleated RBC % Absolute Neutrophils Absolute Lymphocytes Absolute Monocytes Absolute Eosinophils Absolute Basophils PT 10.2 INR 1.0 VBG Lactate 1.3 Sodium 145 Potassium 3.5 Chloride 111 H Carbon Dioxide 24.1 Anion Gap 9.9 BUN 3 L Creatinine 0.7 Estimated GFR/1.73 m2 >= 60.00 Glucose 108 H Calcium 7.5 L Magnesium Total Bilirubin 0.3 AST 20 ALT 16 Alkaline Phosphatase 100 C-Reactive Protein 2.56 H Total Protein 6.2 L Albumin 2.2 L Lipase 83 Procalcitonin Urine Color Urine Clarity Urine pH Ur Specific [place] Urine Protein Urine Ketones Urine Blood Urine Nitrite Urine Bilirubin Urine Urobilinogen Ur Leukocyte Esterase Urine RBC Urine WBC Ur Epithelial Cells Urine Crystals Urine Bacteria Urine Mucus Urine Other Ur Culture Indicated? Urine Glucose COVID-19 Source SARS-CoV-2 (PCR) 06/30/20 06:50 WBC 7.38 D RBC 4.11 L Hgb 13.4 L Hct 40.1 MCV 97.6 H MCH 32.6 MCHC 33.4 RDW 13.6 Plt Count 335 MPV 9.0 Immature Gran % 0.4 Neutrophils % 69.5 Lymphocytes % 19.2 Monocytes % 8.5 Eosinophils % 2.0 Basophils % 0.4 Nucleated RBC % 0 Absolute Neutrophils 5.13 Absolute Lymphocytes 1.42 Absolute Monocytes 0.63 Absolute Eosinophils 0.15 Absolute Basophils 0.03 PT INR VBG Lactate Sodium Potassium Chloride Carbon Dioxide Anion Gap BUN Creatinine Estimated GFR/1.73 m2 Glucose Calcium Magnesium Total Bilirubin AST ALT Alkaline Phosphatase C-Reactive Protein Total Protein Albumin Lipase Procalcitonin Urine Color Urine Clarity Urine pH Ur Specific [place] Urine Protein Urine Ketones Urine Blood Urine Nitrite Urine Bilirubin Urine Urobilinogen Ur Leukocyte Esterase Urine RBC Urine WBC Ur Epithelial Cells Urine Crystals Urine Bacteria Urine Mucus Urine Other Ur Culture Indicated? Urine Glucose COVID-19 Source SARS-CoV-2 (PCR)
[2020-06-30] MEDS: HYDROmorphone 2 MG/ML VIAL 1 MG IVP ×3 (16:26→21:43)
[2020-06-30] MEDS: ACETAMINOPHEN 1,000 MG/100 ML BTL 400 MG IVPB (17:42)
[2020-06-30] MEDS: LORazepam 1 MG TAB PO/SL (17:42)
[2020-06-30] MEDS: Pantoprazole 40 MG VIAL IVP (21:42)
--- NOTE | 2020-07-01 | DI.US_ITS ---
Exam(s) US UPPER EXTREMITY VENOUS RT EXAM: US UPPER EXTREMITY VENOUS RT CLINICAL HISTORY: follow up DVT TECHNIQUE: GRAYSCALE, COLOR, DOPPLER IMAGING OF THE VENOUS SYSTEM OF THE UPPER EXTREMITY-RIGHT COMPARISON: None. This patient apparently had an outside right upper extremity DVT study performed December 2019 at [facility] which was apparent positive for venous thrombosis in the right up per extremity. FINDINGS: Basilic vein: There is echogenic thrombus in the distal basilic vein. This does not appear to be com pletely occlusive. Brachial vein(s):Patent. Normal color flow. Normal compression and augmentation properties. Cephalic vein:Thrombus within the distal cephalic vein over a distance of 8 cm. This does not compress. Intraluminal catheter seen in this region. Axillary vein: Patent. Normal color flow. Normal compression and augmentation properties. Visualized subclavian vein: Patent. No obvious intraluminal thrombus. IMPRESSION: 1. Positive study for intraluminal thrombus in the right upper extremity. 2. There is intraluminal thrombus with in the distal right basilar vein which is not appear occlusiv e and is echogenic and may be nonacute. 3. there is occlusive intraluminal thrombus within the right cephalic vein, this over a distance of 8 cm. This is at the upper arm level. DATA REPOSITORY:
[2020-07-01] MEDS: POTASSIUM CHLORIDE/0.9% NACL 1,000 ML 125 MEQ IV ×2 (00:39→23:34)
[2020-07-01] MEDS: HYDROmorphone 2 MG/ML VIAL 1 MG IVP ×7 (00:46→19:39)
[2020-07-01] MEDS: Normal Saline Flush 10 ML SYR IVP ×6 (00:47→23:34)
[2020-07-01 01:46] VITALS: RESP 16
[2020-07-01] MEDS: ACETAMINOPHEN 1,000 MG/100 ML BTL 400 MG IVPB ×3 (01:59→18:06)
[2020-07-01] MEDS: IMIPENEM/CILASTATIN 500 MG in Normal Saline 100 ML 200 MG IVPB ×3 (02:29→13:53)
[2020-07-01 03:51] VITALS: BP 145/85; PULSE 80; RESP 17; TEMP 36.8; O2SAT 94
[2020-07-01 06:49] LABS: Abs Immature Grans 0.01 10^3/uL (0.0-0.06); Absolute Basophil Count 0.03 10^3/uL (0.0-0.2); Absolute Eosinophil Count 0.17 10^3/uL (0.0-0.7); Absolute Lymphocyte Count 1.12 10^3/uL (1.2-3.4); Absolute Monocyte Count 0.51 10^3/uL (0.1-0.8); Basophils % 0.6; Eosinophils % 3.5; HCT 39.8 % (40.0-50.0); HGB 13.3 g/dL (13.5-17.5); Immature Grans % 0.2; Lymphocytes % 23.3; MCH 32.2 pg (27.0-33.0); MCHC 33.4 % (32.0-36.0); MCV 96.4 fL (80-95); MPV 9.1 fL (8.0-11.0); Monocytes % 10.6; Neutrophils % 61.8; Nucleated RBC 0 %; Platelet Count 340 10^3/uL (130-400); RBC 4.13 10^6/uL (4.36-5.78); RDW 13.2 % (11.8-14.1); RDW-SD 47.2 fL
[2020-07-01 06:54] LABS: Absolute Neutrophil Count 2.97 10^3/uL (1.2-6.7)
[2020-07-01 07:02] LABS: ALT 14 U/L (16-63); AST 18 U/L (15-37); Albumin 2.2 g/dL (3.4-5.0); Alkaline Phosphatase 103 U/L (46-116); Anion Gap 8.2 mmol/L (3-11); BUN 3 mg/dL (7-18); Bilirubin, Direct 0.2 mg/dL (0.0-0.2); Bilirubin, Total 0.5 mg/dL (0.2-1.0); C-Reactive Protein 2.86 mg/dL (0.0-0.3); CO2 24.8 mmol/L (21.0-32.0); CREATININE 0.5 mg/dL (0.70-1.30); Calcium 8.1 mg/dL (8.5-10.1); Chloride 104 mmol/L (98-107); Glucose 89 mg/dL (74-106); Magnesium 1.5 mg/dL (1.8-2.4); Potassium 3.5 mmol/L (3.5-5.1); Sodium 137 mmol/L (136-145)
[2020-07-01 07:56] VITALS: BP 178/92; PULSE 77; RESP 18; TEMP 37.3; O2SAT 98
[2020-07-01] MEDS: Tamsulosin 0.4 MG CAPCR 0.8 MG PO (08:06)
[2020-07-01] MEDS: Finasteride 5 MG TAB PO (08:07)
[2020-07-01] MEDS: Gadoterate meglumine 20 ML VIAL 14 ML IVP (08:57)
--- NOTE | 2020-07-01 09:20 | DI.MRI_ITS ---
Exam(s) MR ABDOMEN WO/W EXAM: MR ABDOMEN WO/W CLINICAL HISTORY: Pancreatitis with mass pancreatic head TECHNIQUE: Multiplanar multisequence MRI was performed with both pre and post contrast infused seque nces. Contrast injected sequences were performed following IV injection of cc of Dotarem. COMPARISON: MR MR ABDOMEN WO from 04/18/[address] ABDOMEN PELVIS W from 06/29/[address] ABDOMEN PELVIS W from 06/29/2020 FINDINGS: VISUALIZED LUNG BASES: There are now small bilateral pleural effusions. There is no ascites evident. LIVER: There are no discrete focal hepatic lesions evident. Minimal prominence of intrahepatic ducts evident. BILIARY: Gallbladder is slightly distended. Gallbladder wall is not edematous and there is no perich olecystic fluid. No obvious intraluminal gallstones or polyps evident. CBD diameters slightly promi nent, measuring up to 7-8 millimeters. PANCREAS: The multiple pancreatic calcifications seen on CT scan are difficult to appreciate on MRI s can because they consist of nonmobile protons.Pancreatic duct is dilated to maximum of 1.1 cm which i s at the neck-head junction. Just medial to the uncinate process is the finding described on yesterd ay's CT scan which appears unchanged and has appearance of a septated try level mass or fluid collect ion interposed between the uncinate process and the superior mesenteric artery.. It is not encasing this vessel. This exhibits peripheral and septal enhancement. Measures approximately 2.5 cm AP by 1 .0 cm wide. It is just anterior to the pre aortic left renal vein (which is not thrombosed). MRCP: SPLEEN: Spleen is not enlarged and there are no intrasplenic lesions.The splenic and portal veins are patent. ADRENALS: There are no significant adrenal masses. KIDNEYS: No solid renal masses. No hydronephrosis.No cysts evident. ABDOMINAL AORTA: Not enlarged and there is no significant para-aortic adenopathy. ANTERIOR ABDOMINAL WALL/GI: There is no evidence of significant anterior abdominal wall hernia in the field of view of this study.Is no evidence of obvious bowel obstruction. OSSEOUS: There are no lytic osseous lesions in the field of view of this study. Urinary bladder is grossly distended and extends up into the right side of the abdomen from the pelvi s. IMPRESSION: 1. Findings are similar to yesterday's CT scan with respect to the peripherally enhancing septated fi nding interposed between the uncinate process of the pancreas and the superior mesenteric artery whic h is probably a form of pseudocyst or possible small abscess. Pancreatic duct is again noted be dila ricardo, similar to yesterday. 2. CBD diameter is minimally prominent, measuring 7-8 millimeters.. 3. ERCP recommended. 4. Grossly distended urinary bladder. DATA REPOSITORY:
[2020-07-01] MEDS: MAGNESIUM SULFATE 4 GM/100 ML BAG IVPB ×2 (09:45→13:51)
--- NOTE | 2020-07-01 11:19 | CMPROGNOTE_ITS ---
Care Management Progress Note S/O: Juan Jose had an MRI this morning, he continues work up and treatment for acute pancreatitis. He appeared to be in good spirits when CM greeted him, upon returning from MRI. CM continues to follow. A: 60 year old male admitted to [facility] 06/29/20 for Acute on Chronic Pancreatitis, Pancreatic Pseudocy P: Juan Jose will likely be discharged home when medically cleared by provider. He will follow up with his PCP and discharge plan of care as directed, CM will attempt to process referrals from previous admission, again. Transport home will be coordinated by CM through [facility]. CM will continue to support Juan Jose and discharge planning needs.
[2020-07-01 11:45] VITALS: BP 152/90; PULSE 93; RESP 20; TEMP 36.7; O2SAT 98
--- NOTE | 2020-07-01 12:07 | PGE_ITS ---
Date of Service Date of service: 07/01/20 Time of Service: 12:07 Assessment and Plan Assessment and plan (1) Acute on chronic pancreatitis: Status: Acute Assessment and plan: Alcoholic pancreatitis with pseudocyst and suspicion for abscess. Continue primaxin. Continue IVF and keep NPO. C/s GI at [facility] for a possible ERCP and further recommendations for antibiotics. Decrease dilaudid interval. Encourage IS. Bowel regimen. If abscess confirmed, will require transfer to a tertiary care facility. (2) Pancreatic mass: Status: Acute Assessment and plan: As above (3) Alcoholism, chronic: Status: Chronic Assessment and plan: Continue CIWA with banana bag, prn ativan. Last drink 5 days ago. (4) Deep vein thrombosis (DVT) of right upper extremity: Status: Chronic Assessment and plan: Originally documented in early 2020. Residual occlusive thrombus still seen on US today. Resume anticoagulation - expect that to be heparin gtt since he might need an ERCP. Qualifiers: Affected thrombotic vein of extremity: unspecified vein of extremity Chronicity: chronic Qualified Code(s): I82.721 - Chronic embolism and thrombosis of deep veins of right upper extremity (5) DVT prophylaxis: Status: Acute Assessment and plan: Heparin gtt as above (no bolus) (6) Discharge planning issues: Status: Acute Assessment and plan: Full code Continues to require hospitalization. May require a [id number] transfer for ERCP at [facility] - will discuss with GI. Subjective Subjective Interval history since last seen: Mr Colin states his pain is still 9/10, epigastric. No nausea, but he does not feel ready to eat. Denies dizziness, chest pain, shortness of breath. Afebrile. Was retaining urine, but refusing straight caths. Exam Narrative Exam Narrative: General: Pleasant middle-aged male, A&Ox3, uncomfortable in bed, but does not look toxic HEENT: EOMI, MMM Heart: RRR, no m/r/g Lungs: Diminished breath sounds at B bases Abdomen: soft, tender in epigastrium, + bowel sounds Extremities: no edema BLE's. Objective Last Vital Signs Temp 36.7 C 07/01/20 11:45 Pulse 93 H 07/01/20 11:45 Resp 20 07/01/20 11:45 BP 152/90 H 07/01/20 11:45 Pulse Ox 98 07/01/20 11:45 Laboratory Results - last 24 hr 07/01/20 07/01/20 06:10 06:10 WBC 4.80 D RBC 4.13 L Hgb 13.3 L Hct 39.8 L MCV 96.4 H MCH 32.2 MCHC 33.4 RDW 13.2 Plt Count 340 MPV 9.1 Immature Gran % 0.2 Neutrophils % 61.8 Lymphocytes % 23.3 Monocytes % 10.6 Eosinophils % 3.5 Basophils % 0.6 Nucleated RBC % 0 Absolute Neutrophils 2.97 Absolute Lymphocytes 1.12 L Absolute Monocytes 0.51 Absolute Eosinophils 0.17 Absolute Basophils 0.03 Sodium 137 Potassium 3.5 Chloride 104 Carbon Dioxide 24.8 Anion Gap 8.2 BUN 3 L Creatinine 0.5 L Estimated GFR/1.73 m2 >= 60.00 Glucose 89 Calcium 8.1 L Magnesium 1.5 L Total Bilirubin 0.5 Conjugated Bilirubin 0.2 AST 18 ALT 14 L Alkaline Phosphatase 103 C-Reactive Protein 2.86 H Total Protein 6.0 L Albumin 2.2 L Objective Narrative Objective Narrative: Venous doppler RUE: 1. Positive study for intraluminal thrombus in the right upper extremity. 2. There is intraluminal thrombus with in the distal right basilar vein which is not appear occlusive and is echogenic and may be nonacute. 3. there is occlusive intraluminal thrombus within the right cephalic vein, this over a distance of 8 cm. This is at the upper arm level. MRCP: 1. Findings are similar to yesterday's CT scan with respect to the peripherally enhancing septated finding interposed between the uncinate process of the pancreas and the superior mesenteric artery which is probably a form of pseudocyst or possible small abscess. Pancreatic duct is again noted be dilated, similar to yesterday. 2. CBD diameter is minimally prominent, measuring 7-8 millimeters.. 3. ERCP recommended. 4. Grossly distended urinary bladder.
[2020-07-01] MEDS: MULTIVITAMIN 10 ML, THIAMINE 100 MG, FOLIC ACID 1 MG in DEXTROSE 5%-0.45% SALINE 1,000 ML 150 ML IV (13:33)
[2020-07-01 13:48] LABS: PTT Activated 28.9 sec (21.0-27.5)
--- NOTE | 2020-07-01 13:54 | PHA.REVIEW ---
Pharmacy Admission Review - Admission Clinical Review (Last Reviewed 06/29/20 @ 21:52 by Alejo Gonzalez) Pancreatic mass (Acute) Acute on chronic pancreatitis (Acute) Discharge planning issues (Acute) DVT prophylaxis (Acute) Opioids - Morphine Analogues Allergy (Mild, Verified 06/29/20 18:18) urticaria Penicillins Allergy (Unverified 06/29/20 18:18) Height 5 ft 7 in Weight 69 kg - Renal Dosing Renal Dosing: BUN 3 mg/dL (7-18) L 07/01/20 06:10 Creatinine 0.5 mg/dL (0.70-1.30) L 07/01/20 06:10 - Anticoagulation Anticoagulation: Hgb 13.3 g/dL (13.5-17.5) L 07/01/20 06:10 Hct 39.8 % (40.0-50.0) L 07/01/20 06:10 Plt Count 340 10^3/uL (130-400) 07/01/20 06:10 INR 1.0 (0.9-1.1) 06/30/20 06:50 Creatinine 0.5 mg/dL (0.70-1.30) L 07/01/20 06:10 - Relevant Labs Sodium 137 mmol/L (136-145) 07/01/20 06:10 Potassium 3.5 mmol/L (3.5-5.1) 07/01/20 06:10 Chloride 104 mmol/L (98-107) 07/01/20 06:10 Magnesium 1.5 mg/dL (1.8-2.4) L 07/01/20 06:10 C-Reactive Protein 2.86 mg/dL (0.0-0.3) H 07/01/20 06:10 Electrolytes, C-Reactive P, ESR: Intervened (NOTE ONLY ABOUT 43.8ML OF THE 4GM BAG OF MAGNESIUM (RX [id number]) WAS INFUSED PRIOR TO LOSING IV ACCESS. A MID LINE WAS PLACED BUT THE REMAINDER OF THAT BAG WAS DISCARDED SO THIS [facility] REORDERED THE 4GM DOSE WITH SPECIFIC INSTRUCTIONS FROM RN TO SET PUMP TO ONLY INFUSE REMAINING 56.2ML OF 100ML) - DM Control DM Control: Glucose 89 mg/dL (74-106) 07/01/20 06:10 - BP Control BP Control: Blood Pressure 152/90 Blood Pressure 178/92 Blood Pressure 145/85
--- NOTE | 2020-07-01 14:25 | CHAPLAIN ---
Juan Jose was in bed, watching tv when I visited. He said we met yesterday, but I wasn't in yesterday and don't think we've met before. His biggest concern is that he's hungry, hasn't eaten in four days, he said. He explained that his nurse said she didn't know why he wasn't allowed to eat either. Juan Jose lives in [place], alone, and said he doesn't have an family or friends. He knows his elderly neighbors and gets along with them, but doesn't consider them friends.
[2020-07-01 15:06] LABS: Chlamydia Result Negative (Negative); GC Result Negative (Negative)
[2020-07-01] MEDS: LORazepam 1 MG TAB PO/SL ×2 (15:59→19:47)
[2020-07-01] MEDS: Docusate Sodium 100 MG CAP PO (19:39)
[2020-07-01 19:54] VITALS: BP 158/108; PULSE 95; RESP 14; TEMP 35.7; O2SAT 94
[2020-07-01 21:37] LABS: PTT Activated 70.2 sec (21.0-27.5)
[2020-07-02 00:04] VITALS: RESP 14
[2020-07-02] MEDS: ACETAMINOPHEN 1,000 MG/100 ML BTL 400 MG IVPB (02:10)
[2020-07-02 03:45] VITALS: BP 148/72; PULSE 88; RESP 14; TEMP 35.9; O2SAT 96
[2020-07-02 03:57] LABS: PTT Activated 62.4 sec (21.0-27.5)
[2020-07-02 06:32] LABS: Abs Immature Grans 0.02 10^3/uL (0.0-0.06); Absolute Basophil Count 0.04 10^3/uL (0.0-0.2); Absolute Eosinophil Count 0.14 10^3/uL (0.0-0.7); Absolute Lymphocyte Count 1.19 10^3/uL (1.2-3.4); Absolute Monocyte Count 0.48 10^3/uL (0.1-0.8); Absolute Neutrophil Count 4.05 10^3/uL (1.2-6.7); Basophils % 0.7; Eosinophils % 2.4; HCT 36.4 % (40.0-50.0); HGB 12.2 g/dL (13.5-17.5); Immature Grans % 0.3; Lymphocytes % 20.1; MCH 32.5 pg (27.0-33.0); MCHC 33.5 % (32.0-36.0); MCV 97.1 fL (80-95); MPV 9.1 fL (8.0-11.0); Monocytes % 8.1; Neutrophils % 68.4; Nucleated RBC 0 %; Platelet Count 366 10^3/uL (130-400); RBC 3.75 10^6/uL (4.36-5.78); RDW 13.2 % (11.8-14.1); RDW-SD 48.1 fL; WBC 5.92 10^3/uL (4.4-10.8)
[2020-07-02 06:49] LABS: ALT 12 U/L (16-63); AST 15 U/L (15-37); Albumin 2.1 g/dL (3.4-5.0); Alkaline Phosphatase 95 U/L (46-116); Anion Gap 5.7 mmol/L (3-11); BUN 5 mg/dL (7-18); Bilirubin, Direct 0.2 mg/dL (0.0-0.2); Bilirubin, Total 0.5 mg/dL (0.2-1.0); C-Reactive Protein 3.05 mg/dL (0.0-0.3); CO2 26.3 mmol/L (21.0-32.0); CREATININE 0.7 mg/dL (0.70-1.30); Calcium 7.6 mg/dL (8.5-10.1); Chloride 107 mmol/L (98-107); Glucose 97 mg/dL (74-106); Potassium 3.9 mmol/L (3.5-5.1); Sodium 139 mmol/L (136-145); Total Protein 5.6 g/dL (6.4-8.2)
[2020-07-02 08:18] VITALS: BP 187/104; PULSE 87; RESP 20; TEMP 37.9; O2SAT 97
[2020-07-02 08:20] VITALS: BP 154/78
[2020-07-02] MEDS: Docusate Sodium 100 MG CAP PO (09:39)
[2020-07-02] MEDS: Finasteride 5 MG TAB PO (09:39)
[2020-07-02] MEDS: Thiamine 100 MG TAB PO (09:39)
[2020-07-02] MEDS: Tamsulosin 0.4 MG CAPCR 0.8 MG PO (09:39)
[2020-07-02] MEDS: Pantoprazole 40 MG TABCR PO (09:39)
[2020-07-02] MEDS: Folic Acid 1 MG TAB PO (09:39)
[2020-07-02] MEDS: Multivitamin TAB 1 TAB PO (09:39)
--- NOTE | 2020-07-02 10:07 | W.NUTCONSULT ---
Date of service: 07/02/20 Time of Service: 10:07 Nutritional Consult ASSESSMENT: 60 year old male readmitted with chronic pancreatitis after 1 day of being discharged. Continued to drink alcohol with long hx of alcohol abuse and reoccurent pancreatitis. Lipase wnl on this admission. Home meds include Creon tabs, knowledgeable about low fat diet for symptom management. At high nutritional risk in view of frequency of poor nutritional intake due to n/v with pain due to continued alcohol abuse. Currently NPO. BMI wnl and stable > 2 years. NUTRITIONAL DIAGNOSIS: impaired nutrient utilization INTERVENTION: NPO MVI, thiamine, folic acid MONITORING AND EVALUATION: labs, weight, po intake Time Spent in Nutritional Counseling and Treatment: 5
[2020-07-02 11:35] VITALS: BP 128/82; PULSE 96; RESP 20; TEMP 37.6; O2SAT 98
--- NOTE | 2020-07-02 13:53 | CHAPLAIN ---
Juan Jose was more relaxed today. He said he is feeling better and being discharged today. He asked about getting a ride home, and I let his housekeeper caregiver know he was asking about transportation.
--- NOTE | 2020-07-02 14:21 | DSE_ITS ---
Date of service: 07/02/20 Time of Service: 14:21 DS: Diagnosis Discharge Diagnosis (1) Acute on chronic pancreatitis: Status: Acute (2) Pancreatic mass: Status: Acute Asessment and Plan: Pseudocyst; abscess ruled out (3) Alcoholism, chronic: Status: Chronic (4) Deep vein thrombosis (DVT) of right upper extremity: Status: Chronic (5) Hypokalemia: Status: Acute (6) Hypomagnesemia: Status: Acute (7) COVID-19 ruled out by laboratory testing: Status: Ruled-out Discharge Plan Disposition Patient Disposition: HOME Condition: Stable Discharge Details Reason For Visit: Acute on Chronic Pancreatitis, Pancreatic Pseudocy Admit Date/Time: 06/29/20 21:33 Admit Provider: Alejo Gonzalez Attending Provider: Alejo Gonzalez Primary Care Provider: Benjamin Bustillos [facility] Course Hospital Course: Mr Colin is a 60 year old male w/ h/o alcohol abuse and alcoholic pancreatitis and pseudocys that came in with alcoholic pancreatitis. While there was suspicion for pancreatic abscess on the original imaging, clinically the patient did not behave as a pancreatic abscess. He was treated with empiric imipenem/cilastin, but after discussion with [facility], who agreed there was likely no abscess, this was discontinued. He was treated with IVF and bowel rest as well as with antiemetic and narcotic pain medications. On the day of discharge, the patient is pain free, tolerating a diet and is ready for discharge home. He will need PCP and GI follow up. He would benefit from an outpatient EUS. He is urged not to drink alcohol. Care management is providing him with resources to help in that regard. As far as his old RUE DVT, there is still evidence of thrombus in his RUE on the latest US done on this admission. For this reason, he is being continued on eliquis therapy on discharge. Care for patient as well as completion of his discharge summary took 45 minutes on day of his discharge. Home Meds and New Rx's Prescriptions: New multivitamin [Multiple Vitamins] Tablet 1 tab PO DAILY Qty: 0 RF: 0 thiamine mononitrate (vit B1) [Vitamin B-1 (mononitrate)] 100 mg Tablet 100 mg PO QAM Qty: 30 RF: 0 Eliquis 5 mg tablet 5 mg PO BID Qty: 60 RF: 0 magnesium oxide 500 mg capsule 500 mg PO BID Qty: 60 RF: 0 Continued folic acid 1 mg tablet 1 mg PO DAILY Qty: 30 RF: 0 Creon 12,000-38,000 -60,000 unit capsule,delayed release(DR/EC) 1 cap PO AC & HS Qty: 120 RF: 0 tamsulosin 0.4 mg Capsule 0.8 mg PO DAILY Qty: 30 RF: 0 omeprazole magnesium [Prilosec OTC] 20 mg tablet,delayed release (DR/EC) 20 mg PO DAILY Qty: 60 RF: 0 sucralfate [Carafate] 1 gram tablet 1 g PO BID Qty: 60 RF: 0 finasteride 5 mg Tablet 5 mg PO DAILY Qty: 30 RF: 0 oxazepam 10 mg capsule 10 mg PO TID Qty: 18 RF: 0 tramadol 100 mg tablet 100 mg PO Q6H PRNQty: 20 RF: 0 Discontinued guaifenesin [Mucinex] 600 mg tablet extended release 12hr 600 mg PO BID PRN (Reason: cough) Qty: 20 RF: 0 levofloxacin 750 mg tablet 750 mg PO DAILY Qty: 7 RF: 0 Discharge Instructions Instructions: Pancreatitis (DC), Alcohol Dependence (DC), Upper Endoscopic Gastrointestinal Ultrasonography (DC) Additional Instructions: Return to the hospital with any fever, bleeding, worsening abdominal pain, shortness of breath. Follow a low fat bland diet. You must stop drinking alcohol. Follow up with PCP and with gastroenterology. Referrals: [place],[facility] [place] - Benjamin Bustillos DO [Primary Care Provider] - Activity:: Activity as Tolerated Equipment/Supplies:: No Equipment Needed Diet:: bland low fat Discharge Orders Discharge Orders: Discharge Order (Routine); Ordered 07/02/20 Ordered By: Yue Smith DS: Summary Time Spent with Patient providing and/or coordinating discharge services: Greater than 30 minutes Status at Discharge Functional status at discharge: independent ambulation Overall status at discharge: patient is back to baseline Mental Status: mental status grossly normal Speech and Movement: speech and movement normal Mood: congruent mood Affect: normal affect Exam Narrative Exam Narrative: General: Pleasant middle-aged male, A&Ox3, comfortable, in a great mood HEENT: EOMI, MMM Heart: RRR, no m/r/g Lungs: Diminished breath sounds at B bases Abdomen: soft, tender in epigastrium, + bowel sounds Extremities: no edema BLE's. Psych Mental Status: mental status grossly normal Speech and Movement: speech and movement normal Mood: congruent mood Affect: normal affect DS: Data Vitals/I&O Vitals and I&O: Vital Signs Temperature 37.6 C H 07/02/20 11:35 Temperature Source Tympanic 07/02/20 11:35 Pulse 96 H 07/02/20 11:35 Pulse Rhythm Regular 07/02/20 09:05 Pulse 105 H 06/29/20 21:46 Respiratory Rate 20 07/02/20 11:35 Respiratory Effort Non-Labored 07/02/20 09:05 Respiratory Depth Normal 07/02/20 09:05 Respiratory Pattern Normal 07/02/20 09:05 Blood Pressure 128/82 07/02/20 11:35 Blood Pressure Mean 90 06/29/20 21:46 Blood Pressure Position Sitting 06/29/20 18:14 Pulse Oximetry 98 07/02/20 11:35 Oxygen Delivery Method Room Air 07/02/20 11:35 Oxygen Flow Rate 0 07/02/20 11:35 Pain Level 0 07/02/20 11:35 Comment 06/30/20 23:51 Intake & Output 07/01/20 07/02/20 07/02/20 23:59 11:59 23:59 Intake Total 1260.8 / 2660.8 1566.667 / 1730.867 164.2 / 1730.867 Output Total 1025 / 2475 2125 / 3125 1000 / 3125 Balance 235.8 / 185.8 -558.333 / -1394.133 -835.8 / -1394.133 Weight 69.1 kg Intake: IV 1260.8 / 2660.8 1086.667 / 1250.867 164.2 / 1250.867 Oral 480 / 480 Output: Urine 1025 / 2475 2125 / 3125 1000 / 3125 Other: Urine Color Pale Pale Yellow Urine Appearance Clear Clear Urine Odor Normal Normal Comment using urinal Voiding Methods Urinal Urinal Data Completed and Pending Completed studies during hospitalization [Text1]: CT abdomen/pelvis with contrast 06/29/20: 1. Compared to the prior CT scan of 06/25/2020 there is again noted evidence of chronic calcific pancreatitis and there is acute on chronic pancreatitis. The amount of ductal dilatation has slightly decreased but the previously described area of decreased attenuation/partial fluid density adjacent to the uncinate process slightly larger and exhibits internal septations. This is either developing pseudocyst or possible abscess in this region. This patient requires close follow to resolution pancreatic findings. 2. Adjacent splenic and portal veins are patent/not thrombosed. 3. Gallbladder wall is diffusely thickened. Although there are no obvious gallstones are recommend follow-up gallbladder ultrasound. The CBD is not dilated. There is very subtle dilatation of intrahepatic ducts evident. 4. Atherosclerotic and calcified abdominal aorta as well as calcified plaque at the origin of both renal arteries and probable significant renal artery stenosis at the origin left renal artery. Kidney size is normal. US venous RUE: 1. Positive study for intraluminal thrombus in the right upper extremity. 2. There is intraluminal thrombus with in the distal right basilar vein which is not appear occlusive and is echogenic and may be nonacute. 3. there is occlusive intraluminal thrombus within the right cephalic vein, this over a distance of 8 cm. This is at the upper arm level. MRCP 07/01/20: 1. Findings are similar to yesterday's CT scan with respect to the peripherally enhancing septated finding interposed between the uncinate process of the pancreas and the superior mesenteric artery which is probably a form of pseudocyst or possible small abscess. Pancreatic duct is again noted be dilated, similar to yesterday. 2. CBD diameter is minimally prominent, measuring 7-8 millimeters.. 3. ERCP recommended. 4. Grossly distended urinary bladder. Labs on day of discharge: Labs from last 24 hours 07/02/20 07/02/20 07/02/20 07:52 06:19 06:19 WBC 5.92 RBC 3.75 L Hgb 12.2 L Hct 36.4 L MCV 97.1 H MCH 32.5 MCHC 33.5 RDW 13.2 Plt Count 366 MPV 9.1 Immature Gran % 0.3 Neutrophils % 68.4 Lymphocytes % 20.1 Monocytes % 8.1 Eosinophils % 2.4 Basophils % 0.7 Nucleated RBC % 0 Absolute Neutrophils 4.05 Absolute Lymphocytes 1.19 L Absolute Monocytes 0.48 Absolute Eosinophils 0.14 Absolute Basophils 0.04 APTT 52.0 H Sodium 139 Potassium 3.9 Chloride 107 Carbon Dioxide 26.3 Anion Gap 5.7 BUN 5 L Creatinine 0.7 Estimated GFR/1.73 m2 >= 60.00 Glucose 97 Calcium 7.6 L Total Bilirubin 0.5 Conjugated Bilirubin 0.2 AST 15 ALT 12 L Alkaline Phosphatase 95 C-Reactive Protein 3.05 H Total Protein 5.6 L Albumin 2.1 L Vaginal Trichomonas Chlamydia DNA Probe Chlamydia/GC DNA Source N.gonorrhoeae DNA Probe 07/02/20 07/01/20 06/29/20 03:35 21:08 18:30 WBC RBC Hgb Hct MCV MCH MCHC RDW Plt Count MPV Immature Gran % Neutrophils % Lymphocytes % Monocytes % Eosinophils % Basophils % Nucleated RBC % Absolute Neutrophils Absolute Lymphocytes Absolute Monocytes Absolute Eosinophils Absolute Basophils APTT 62.4 H 70.2 H D Sodium Potassium Chloride Carbon Dioxide Anion Gap BUN Creatinine Estimated GFR/1.73 m2 Glucose Calcium Total Bilirubin Conjugated Bilirubin AST ALT Alkaline Phosphatase C-Reactive Protein Total Protein Albumin Vaginal Trichomonas Cancelled Chlamydia DNA Probe Chlamydia/GC DNA Source N.gonorrhoeae DNA Probe 06/29/20 18:30 WBC RBC Hgb Hct MCV MCH MCHC RDW Plt Count MPV Immature Gran % Neutrophils % Lymphocytes % Monocytes % Eosinophils % Basophils % Nucleated RBC % Absolute Neutrophils Absolute Lymphocytes Absolute Monocytes Absolute Eosinophils Absolute Basophils APTT Sodium Potassium Chloride Carbon Dioxide Anion Gap BUN Creatinine Estimated GFR/1.73 m2 Glucose Calcium Total Bilirubin Conjugated Bilirubin AST ALT Alkaline Phosphatase C-Reactive Protein Total Protein Albumin Vaginal Trichomonas Chlamydia DNA Probe Negative Chlamydia/GC DNA Source Not Applicable N.gonorrhoeae DNA Probe Negative Preliminary micro results at discharge 06/29/20 18:30 Blood Culture - Preliminary Blood NO GROWTH 48 HOURS 06/29/20 19:00 Blood Culture - Preliminary Blood NO GROWTH 48 HOURS [facility] Medical History Acute UTI Alcohol withdrawal Alcoholic gastritis Alcoholism /alcohol abuse ARDS (adult respiratory distress syndrome) Aspiration pneumonia COVID-19 ruled out by laboratory testing Enterocolitis Fever Ground glass opacity present on imaging of lung HTN (hypertension) Hx of hyperlipidemia Hypokalemia Hypomagnesemia Myocardial infarction x 2 Pancreatitis Pancreatitis, chronic Pneumonia Presence of pancreatic duct stent (~01/2018) [place] Retention of urine Septal myocardial infarction (01/18/20) probably old, [facility] records Urinary retention Surgical History S/P ERCP (~01/2018) Sean Sears Family History Mother Alcohol abuse Father Alcohol abuse Social History Smoking/Tobacco Use Status: Current every day Tobacco Type: cigarettes Smoking packs per day: 1 Smoking cigarettes per day: 20.0 Smoking risk assessment performed?: Yes Alcohol Intake: current Alcohol Intake frequency: 3 or more drinks per day Alcohol type: beer Drug use: Occasionally Substance use type: marijuana Housing: apartment Do you feel safe at home: Yes Do you feel safe in your relationship?: Yes
--- NOTE | 2020-07-02 15:24 | PDOC.CMDIS ---
LACE Index Scoring Tool - Questions: Length of Stay (in days): 3 Acuity (Admit via E.D.?): Yes Comorbidities: Liver or Renal Disease E.D. Visits: 15 - Answers: Total Score: 15 Risk of Readmission: High Risk Care Management Discharge Reason for Hospitalization: Acute on chronic pancreatitis, pancreatic pseudocy. Discharge Plan: Juan Jose will be discharged home when medically cleared by provider. He will follow up with his PCP and discharge plan of care as directed. CM coordinated transport via [facility] with stop at [facility] in [place] for new prescription of Eliquis; CM also faxed Eliquis coupon to [facility]. Juan Jose reports he still does not know his phone number but again will call [facility] to advise of contact info when he returns home. Patient/Family Education Needs: Review discharge instructions, discuss Ask Me Three. Services Needed at Discharge: Transportation ([facility], additional referrals awaiting contact information. )
== END 2020-07-02 15:29 | disposition home or self-care (01) | DRG 439 ==
LOC: ER 21:43 → MS 22:42
PROVIDERS: Internal Medicine; Student in an Organized Health Care Education/Training Program; Admitting Provider Family Medicine; Emergency Provider Emergency Medicine; PCP Family Medicine; Visit Provider Family Medicine
DX: K85.20 Alcohol induced acute pancreatitis without necrosis or infection (principal); I82.721 Chronic embolism and thrombosis of deep veins of right upper extremity; K86.3 Pseudocyst of pancreas; K86.0 Alcohol-induced chronic pancreatitis; F10.20 Alcohol dependence, uncomplicated; I10 Essential (primary) hypertension; E78.5 Hyperlipidemia, unspecified; K29.20 Alcoholic gastritis without bleeding; R33.9 Retention of urine, unspecified; F17.210 Nicotine dependence, cigarettes, uncomplicated; E83.42 Hypomagnesemia; E87.6 Hypokalemia; Z20.822 Contact with and (suspected) exposure to COVID-19; Z79.01 Long term (current) use of anticoagulants; I25.2 Old myocardial infarction
CPT/HCPCS: 36410; 36415; 74183; 80048; 80053; 80076; 83690; 84145; 87040; 87491; 87591; 87635; 93005; 96361; 96365; 96366; 96375; 99285; 74177; 81003; 81015; 83605; 83735; 85025; 85610; 85730; 86140; 93010; 93971; 94667; 99223; 99233; 99239; J0131; J0743; J1956; J2405; J3475; J3480; J3490

== ENCOUNTER 2020-07-08 10:45 | Emergency (ER) | payer MEDICAID, SELFPAY ==
[2020-07-08 10:47] VITALS: BP 108/75; PULSE 99; TEMP 37.1; O2SAT 98
--- NOTE | 2020-07-08 10:54 | ED.GENADUL_ITS ---
Discharge Plan Disposition Patient Disposition: HOME Condition: Stable Discharge Details Clinical Impression: Alcoholism, chronic, Abdominal pain Primary Care Provider: Benjamin Bustillos ED Provider: Elias Serna Home Meds and New Rx's Prescriptions: Continued Creon 12,000-38,000 -60,000 unit capsule,delayed release(DR/EC) 1 cap PO AC & HS Qty: 120 RF: 0 tamsulosin 0.4 mg Capsule 0.8 mg PO DAILY Qty: 30 RF: 0 omeprazole magnesium [Prilosec OTC] 20 mg tablet,delayed release (DR/EC) 20 mg PO DAILY Qty: 60 RF: 0 sucralfate [Carafate] 1 gram tablet 1 g PO BID Qty: 60 RF: 0 finasteride 5 mg Tablet 5 mg PO DAILY Qty: 30 RF: 0 oxazepam 10 mg capsule 10 mg PO TID Qty: 18 RF: 0 multivitamin [Multiple Vitamins] Tablet 1 tab PO DAILY Qty: 0 RF: 0 thiamine mononitrate (vit B1) [Vitamin B-1 (mononitrate)] 100 mg Tablet 100 mg PO QAM Qty: 30 RF: 0 Eliquis 5 mg tablet 5 mg PO BID Qty: 60 RF: 0 magnesium oxide 500 mg capsule 500 mg PO BID Qty: 60 RF: 0 Discharge Instructions Instructions: Abuse of Alcohol (ED), Abdominal Pain (ED) Additional Instructions: At this time your laboratory values and vital signs do not reveal any obvious emergent process. I have had both our care management team and recovery operator helper come talk with you to talk about additional resources. It appears as though your recovery operator helper will help you with the outpatient detox process. I strongly urged you to discontinue drinking alcohol. Please watch for new or worsening symptoms and return to the ER for any concerns. Otherwise I strongly recommend also contacting your primary care provider later today or tomorrow to discuss outpatient reevaluation Medical Decision Making 60-year-old gentleman, history of hypertension, chronic alcohol abuse, recurrent pancreatitis, recent admission to our facility for the same presents requesting IV Dilaudid, admission, and subsequent alcohol detox when a bed opens up. Patient clinically appears well, nontoxic, vital signs are hemodynamically stable. Abdomen is soft, tender throughout with mild increase of discomfort in his epigastric and left upper quadrant region. Certainly nonsurgical. I explained to the patient that I would obtain IV access, give IV fluids, obtain routine laboratory values and reassess. I would not be giving IV narcotics unless I felt as though there was a clear indication. Patient was initially upset but was eventually agreeable. He declined any other medications such as Tylenol, Protonix, etc. I will also request that her recovery operator helper and community discussed resources with the patient. The patient patient remains well-appearing, vital signs remained hemodynamically stable. Laboratory values reveal a white blood cell count of 4.77 hemoglobin 14.4 hematocrit 43.0 platelet count 478. Potassium 3.4 BUN 3 creatinine 0.6, GFR greater than 60, glucose 98, calcium 8.3, alk phosphatase 127, albumin 2.9, lipase 179. Urinalysis unremarkable. Alcohol 170. Both recovery operator helper and care management has evaluated the patient, please see their note. population health coach will be contacting the patient tomorrow and help get outpatient detox. Currently there are no signs of acute withdrawal. Laboratory values are unremarkable. No obvious emergent process. I discussed findings with patient. I explained to him that I saw no indication for IV narcotic medication here in the ER today nor did I see a clear reason for admission. He is requesting discharge and requesting that we find him a ride. Will reach out to [facility] to provide a ride home for the patient. He was encouraged to return to the ER for new or worsening symptoms. Encouraged to follow the instructions given to him by the care management and recovery operator helper. Also encouraged to contact his primary care provider today or tomorrow to discuss his ongoing symptoms and need for outpatient reevaluation. Patient has no additional questions or concerns and is comfortable with plan. Medical Records Medical records reviewed: Yes I reviewed the patient's medical records. Lab Data Lab results reviewed: Yes I reviewed the patient's lab results. Labs: Laboratory Tests Range/Units 07/08/20 07/08/20 07/08/20 11:55 11:55 11:55 WBC (4.4-10.8) 10^3/uL 4.77 RBC (4.36-5.78) 10^6/uL 4.40 Hgb (13.5-17.5) g/dL 14.4 Hct (40.0-50.0) % 43.0 MCV (80-95) fL 97.7 H MCH (27.0-33.0) pg 32.7 MCHC (32.0-36.0) % 33.5 RDW (11.8-14.1) % 14.1 Plt Count (130-400) 10^3/uL 478 H MPV (8.0-11.0) fL 8.6 Immature Gran % 0.6 Neutrophils % 45.9 Lymphocytes % 42.1 Monocytes % 8.6 Eosinophils % 1.5 Basophils % 1.3 Nucleated RBC % % 0 Absolute Neutrophils (1.2-6.7) 10^3/uL 2.19 Absolute Lymphocytes (1.2-3.4) 10^3/uL 2.01 Absolute Monocytes (0.1-0.8) 10^3/uL 0.41 Absolute Eosinophils (0.0-0.7) 10^3/uL 0.07 Absolute Basophils (0.0-0.2) 10^3/uL 0.06 Sodium (136-145) mmol/L 142 Potassium (3.5-5.1) mmol/L 3.4 L Chloride (98-107) mmol/L 106 Carbon Dioxide (21.0-32.0) mmol/L 25.6 Anion Gap (3-11) mmol/L 10.4 BUN (7-18) mg/dL 3 L Creatinine (0.70-1.30) mg/dL 0.6 L Estimated GFR/1.73 m2 (mL/min/1.73m2) >= 60.00 Glucose (74-106) mg/dL 98 Calcium (8.5-10.1) mg/dL 8.3 L Total Bilirubin (0.2-1.0) mg/dL 0.3 AST (15-37) U/L 26 ALT (16-63) U/L 23 Alkaline Phosphatase (46-116) U/L 127 H Total Protein (6.4-8.2) g/dL 7.4 Albumin (3.4-5.0) g/dL 2.9 L Lipase (73-393) U/L 179 Urine Color (Yellow) Urine Clarity (Clear) Urine pH (5-8) Ur Specific [place] (1.005-1.025) Urine Protein (Negative) mg/dL Urine Ketones (Negative) mg/dL Urine Blood (Negative) Urine Nitrite (Negative) Urine Bilirubin (Negative) Urine Urobilinogen (Up TO 0.2) EU/dL Ur Leukocyte Esterase (Negative) Urine Glucose (Negative) mg/dL Ethyl Alcohol (<3) mg/dL 170.8 Range/Units 07/08/20 12:20 WBC (4.4-10.8) 10^3/uL RBC (4.36-5.78) 10^6/uL Hgb (13.5-17.5) g/dL Hct (40.0-50.0) % MCV (80-95) fL MCH (27.0-33.0) pg MCHC (32.0-36.0) % RDW (11.8-14.1) % Plt Count (130-400) 10^3/uL MPV (8.0-11.0) fL Immature Gran % Neutrophils % Lymphocytes % Monocytes % Eosinophils % Basophils % Nucleated RBC % % Absolute Neutrophils (1.2-6.7) 10^3/uL Absolute Lymphocytes (1.2-3.4) 10^3/uL Absolute Monocytes (0.1-0.8) 10^3/uL Absolute Eosinophils (0.0-0.7) 10^3/uL Absolute Basophils (0.0-0.2) 10^3/uL Sodium (136-145) mmol/L Potassium (3.5-5.1) mmol/L Chloride (98-107) mmol/L Carbon Dioxide (21.0-32.0) mmol/L Anion Gap (3-11) mmol/L BUN (7-18) mg/dL Creatinine (0.70-1.30) mg/dL Estimated GFR/1.73 m2 (mL/min/1.73m2) Glucose (74-106) mg/dL Calcium (8.5-10.1) mg/dL Total Bilirubin (0.2-1.0) mg/dL AST (15-37) U/L ALT (16-63) U/L Alkaline Phosphatase (46-116) U/L Total Protein (6.4-8.2) g/dL Albumin (3.4-5.0) g/dL Lipase (73-393) U/L Urine Color (Yellow) Yellow Urine Clarity (Clear) Clear Urine pH (5-8) 7.0 Ur Specific [place] (1.005-1.025) 1.015 Urine Protein (Negative) mg/dL Negative Urine Ketones (Negative) mg/dL Negative Urine Blood (Negative) Negative Urine Nitrite (Negative) Negative Urine Bilirubin (Negative) Negative Urine Urobilinogen (Up TO 0.2) EU/dL 0.2 Ur Leukocyte Esterase (Negative) Negative Urine Glucose (Negative) mg/dL Negative Ethyl Alcohol (<3) mg/dL HPI General Mode of arrival: EMS . Date/Time Provider Initiated Documentation: 07/08/20 10:48 . Limitations to Documentation: no limitations . Information obtained by: patient and EMS . HPI Narrative: This is a 60-year-old gentleman, past medical history that includes chronic alcohol abuse with history of alcohol withdrawal, hypertension, pancreatitis, recent admission to our facility on 06-29 with a subsequent discharge on 07-02. He states that when he was discharged on the he went home, began drinking beer at least 3 or 4 a day, and started having his typical abdominal pain. Today he presents by EMS stating that I want to be admitted, given Dilaudid, and taken care of. He states that he would like to also get help with detox for alcohol abuse. He denies recent illness or trauma. Headache, fever, visual changes, neck pain, chest pain, shortness of breath, vomiting, dysuria, diarrhea, skin rash, numbness, tingling, weakness. He reports moderate abdominal pain associate with some nausea. He reports this pain is primarily in the epigastric and left upper quadrant. Triage note states that he complained of dysuria but denies any of this to me. Patient stating that he needs Dilaudid and now and reports that he does not get it or gets any other medications he will simply leave. He admits that his last drink was earlier this Related Data Home Medications Medication Instructions Recorded Confirmed Creon 1 cap PO AC & HS #120 cap 01/28/20 07/08/20 tamsulosin 0.8 mg PO DAILY #30 cap 02/07/20 07/08/20 omeprazole magnesium [Prilosec OTC] 20 mg PO DAILY #60 tab 04/30/20 07/08/20 sucralfate [Carafate] 1 g PO BID #60 tab 04/30/20 07/08/20 finasteride 5 mg PO DAILY #30 tab 06/27/20 07/08/20 oxazepam 10 mg PO TID #18 cap 06/27/20 07/08/20 Eliquis 5 mg PO BID #60 tab 07/02/20 07/08/20 magnesium oxide 500 mg PO BID #60 cap 07/02/20 07/08/20 multivitamin [Multiple Vitamins] 1 tab PO DAILY #0 tab 07/02/20 07/08/20 thiamine mononitrate (vit B1) 100 mg PO QAM #30 tab 07/02/20 07/08/20 [Vitamin B-1 (mononitrate)] Previous Rx's Medication Instructions Recorded Creon 1 cap PO AC & HS #120 cap 01/28/20 tamsulosin 0.8 mg PO DAILY #30 cap 02/07/20 omeprazole magnesium [Prilosec OTC] 20 mg PO DAILY #60 tab 04/30/20 sucralfate [Carafate] 1 g PO BID #60 tab 04/30/20 finasteride 5 mg PO DAILY #30 tab 06/27/20 oxazepam 10 mg PO TID #18 cap 06/27/20 Eliquis 5 mg PO BID #60 tab 07/02/20 magnesium oxide 500 mg PO BID #60 cap 07/02/20 multivitamin [Multiple Vitamins] 1 tab PO DAILY #0 tab 07/02/20 thiamine mononitrate (vit B1) 100 mg PO QAM #30 tab 07/02/20 [Vitamin B-1 (mononitrate)] Allergies Allergy/AdvReac Type Severity Reaction Status Date / Time Opioids - Morphine Analogues Allergy Mild urticaria Verified 06/29/20 18:18 Penicillins Allergy Unverified 06/29/20 18:18 General Stated Complaint: Abd Prob DMITRI: 3 Review of Systems Constitutional Constitutional: Denies fatigue, Denies fever(s) and Denies headache(s) Eyes Eyes: Denies change in vision ENT Ears, Nose, Mouth, and Throat: Denies headache(s) and Denies neck pain Cardiovascular Cardiovascular: Denies chest pain and Denies dyspnea Respiratory Respiratory: Denies cough and Denies dyspnea Gastrointestinal Gastrointestinal: Reports abdominal pain, Reports nausea and Denies vomiting Genitourinary Genitourinary: Denies dysuria Musculoskeletal Musculoskeletal: Denies back pain and Denies neck pain Integumentary/Breasts Skin/Breast: Denies rash Neurologic Neurologic: Denies headache(s) Endocrine Endocrine: Denies fatigue PFSH Medical History Acute UTI Alcohol withdrawal Alcoholic gastritis Alcoholism /alcohol abuse ARDS (adult respiratory distress syndrome) Aspiration pneumonia COVID-19 ruled out by laboratory testing Enterocolitis Fever Ground glass opacity present on imaging of lung HTN (hypertension) Hx of hyperlipidemia Hypokalemia Hypomagnesemia Myocardial infarction x 2 Pancreatitis Pancreatitis, chronic Pneumonia Presence of pancreatic duct stent (~01/2018) Sean Sears Retention of urine Septal myocardial infarction (01/18/20) probably old, [facility] records Urinary retention Surgical History S/P ERCP (~01/2018) Sean Sears Family History Mother Alcohol abuse Father Alcohol abuse Social History Smoking/Tobacco Use Status: Current every day Tobacco Type: cigarettes Smoking packs per day: 1 Smoking cigarettes per day: 20.0 Smoking risk assessment performed?: Yes Alcohol Intake: current Alcohol Intake frequency: 3 or more drinks per day Alc ohol type: beer Drug use: Occasionally Substance use type: marijuana Housing: apartment Do you feel safe at home: Yes Do you feel safe in your relationship?: Yes Exam Const General: cooperative, healthy appearing, comfortable and no acute distress Orientation: alert, awake and oriented x3 HENMT Head: normal to inspection, normocephalic and atraumatic Face and sinus: normal facial exam Mouth: moist mucous membranes Eyes General: appearance normal, both eyes and all related structures Conjunctivae: conjunctivae normal Neck Neck: normal visual inspection, full ROM, trachea midline and supple Resp Effort & Inspection: normal respiratory effort and able to speak in complete sentences Auscultation: clear to auscultation bilaterally Cardio Rate: regular rate Rhythm: regular rhythm GI Inspection: normal to inspection Palpation: soft, not firm, no guarding, no pulsatile masses and tender (Diffuse, increased mildly in the epigastric and LUQ) Ackerman's sign negative and with no rebound tenderness Auscultation: normal bowel sounds Back/Spine/Pelvis Back: No back tenderness Skin General skin exam: no rashes or lesions noted Neuro General: patient alert, patient awake, patient oriented x3, moves all extremities and no focal motor deficits Cognition: normal cognition Speech: speech normal Gait: normal gait Motor: muscle tone normal throughout Sensory Exam: no sensory deficits noted Extrem General: normal to inspection, full ROM, capillary refill normal, no pedal edema and no calf tenderness Psych Appearance: grossly normal Mental Status: mental status grossly normal Course Vital Signs Vital signs: Vital Signs Temperature 37.1 C 07/08/20 10:47 Pulse 99 H 07/08/20 10:47 Blood Pressure 108/75 07/08/20 10:47 Pulse Oximetry 98 07/08/20 10:47 Temperature 37.1 C 07/08/20 10:47 Temperature Source Temporal Artery Scan 07/08/20 10:47 Pulse 99 H 07/08/20 10:47 Respiratory Effort Non-Labored 07/08/20 10:50 Blood Pressure 108/75 07/08/20 10:47 Blood Pressure Position Supine 07/08/20 10:47 Pulse Oximetry 98 07/08/20 10:47 Oxygen Delivery Method Room Air 07/08/20 10:47 Oxygen Flow Rate 0 07/08/20 10:47 Pain Level 10 07/08/20 10:47
[2020-07-08] MEDS: Normal Saline 1,000 ML 1000 ML IV (12:04)
[2020-07-08 12:06] LABS: Abs Immature Grans 0.03 10^3/uL (0.0-0.06); Absolute Basophil Count 0.06 10^3/uL (0.0-0.2); Absolute Eosinophil Count 0.07 10^3/uL (0.0-0.7); Absolute Lymphocyte Count 2.01 10^3/uL (1.2-3.4); Absolute Monocyte Count 0.41 10^3/uL (0.1-0.8); Absolute Neutrophil Count 2.19 10^3/uL (1.2-6.7); Basophils % 1.3; Eosinophils % 1.5; HGB 14.4 g/dL (13.5-17.5); Immature Grans % 0.6; Lymphocytes % 42.1; MCH 32.7 pg (27.0-33.0); MCHC 33.5 % (32.0-36.0); MCV 97.7 fL (80-95); MPV 8.6 fL (8.0-11.0); Monocytes % 8.6; Neutrophils % 45.9; Nucleated RBC 0 %; Platelet Count 478 10^3/uL (130-400); RDW 14.1 % (11.8-14.1); RDW-SD 50.9 fL; WBC 4.77 10^3/uL (4.4-10.8)
[2020-07-08 12:22] LABS: ETHANOL BLOOD 170.8 mg/dL (<3)
[2020-07-08 12:25] LABS: ALT 23 U/L (16-63); AST 26 U/L (15-37); Albumin 2.9 g/dL (3.4-5.0); Alkaline Phosphatase 127 U/L (46-116); Anion Gap 10.4 mmol/L (3-11); BUN 3 mg/dL (7-18); Bilirubin, Total 0.3 mg/dL (0.2-1.0); CO2 25.6 mmol/L (21.0-32.0); CREATININE 0.6 mg/dL (0.70-1.30); Calcium 8.3 mg/dL (8.5-10.1); Chloride 106 mmol/L (98-107); Glucose 98 mg/dL (74-106); Lipase 179 U/L (73-393); Potassium 3.4 mmol/L (3.5-5.1); Sodium 142 mmol/L (136-145); Total Protein 7.4 g/dL (6.4-8.2)
[2020-07-08 12:26] VITALS: BP 138/75; PULSE 86; RESP 18; O2SAT 98
[2020-07-08 12:29] LABS: Bilirubin Negative (Negative); Blood Negative (Negative); Clarity Clear (Clear); Glucose Negative (Negative); Ketones Negative (Negative); Leukocyte Esterase Negative (Negative); Nitrite Negative (Negative); Specific Gravity 1.015 (1.005-1.025); Urobilinogen 0.2 EU/dL (Up TO 0.2)
== END 2020-07-08 13:37 | disposition home or self-care (01) ==
LOC: ER 13:30
PROVIDERS: Emergency Provider Physician Assistant; PCP Family Medicine
DX: F10.20 Alcohol dependence, uncomplicated (principal); Y90.6 Blood alcohol level of 120-199 mg/100 ml; R10.9 Unspecified abdominal pain
CPT/HCPCS: 80053; 83690; 96360; 99284; 80320; 81003; 85025; 99283

== ENCOUNTER 2020-07-11 21:01 | Emergency (ER) | payer MEDICAID, SELFPAY ==
[2020-07-11 21:19] VITALS: TEMP 37.1
[2020-07-11 21:24] VITALS: BP 106/67; PULSE 114; RESP 16; TEMP 37.1; O2SAT 96
[2020-07-11] MEDS: Ondansetron 4 MG/2 ML VIAL IVP (21:38)
[2020-07-11] MEDS: Normal Saline 1,000 ML 1000 ML IV (21:38)
[2020-07-11 21:39] LABS: Abs Immature Grans 0.02 10^3/uL (0.0-0.06); Absolute Basophil Count 0.06 10^3/uL (0.0-0.2); Absolute Eosinophil Count 0.11 10^3/uL (0.0-0.7); Absolute Lymphocyte Count 2.82 10^3/uL (1.2-3.4); Absolute Monocyte Count 0.37 10^3/uL (0.1-0.8); Absolute Neutrophil Count 1.22 10^3/uL (1.2-6.7); Basophils % 1.3; Eosinophils % 2.4; HCT 43.4 % (40.0-50.0); HGB 14.4 g/dL (13.5-17.5); Immature Grans % 0.4; Lymphocytes % 61.3; MCH 32.4 pg (27.0-33.0); MCHC 33.2 % (32.0-36.0); MCV 97.5 fL (80-95); MPV 8.8 fL (8.0-11.0); Neutrophils % 26.6; Nucleated RBC 0 %; Platelet Count 385 10^3/uL (130-400); RBC 4.45 10^6/uL (4.36-5.78); RDW 14.3 % (11.8-14.1); RDW-SD 51.5 fL
[2020-07-11 21:54] LABS: ALT 28 U/L (16-63); AST 37 U/L (15-37); Alkaline Phosphatase 132 U/L (46-116); Anion Gap 14.8 mmol/L (3-11); BUN 4 mg/dL (7-18); Bilirubin, Total 0.3 mg/dL (0.2-1.0); CO2 22.2 mmol/L (21.0-32.0); CREATININE 0.8 mg/dL (0.70-1.30); Chloride 107 mmol/L (98-107); ETHANOL BLOOD 276.2 mg/dL (<3); Glucose 141 mg/dL (74-106); Lipase 239 U/L (73-393); Magnesium 2.1 mg/dL (1.8-2.4); Potassium 3.3 mmol/L (3.5-5.1); Sodium 144 mmol/L (136-145); Total Protein 7.3 g/dL (6.4-8.2)
--- NOTE | 2020-07-11 22:40 | W.ED.GENAD ---
Discharge Plan Disposition Patient Disposition: HOME Condition: Stable Discharge Details Clinical Impression: Chronic pancreatitis, Alcoholism, chronic Primary Care Provider: Benjamin Bustillos ED Provider: Jennifer Bowen Home Meds and New Rx's Prescriptions: Continued Creon 12,000-38,000 -60,000 unit capsule,delayed release(DR/EC) 1 cap PO AC & HS Qty: 120 RF: 0 tamsulosin 0.4 mg Capsule 0.8 mg PO DAILY Qty: 30 RF: 0 omeprazole magnesium [Prilosec OTC] 20 mg tablet,delayed release (DR/EC) 20 mg PO DAILY Qty: 60 RF: 0 sucralfate [Carafate] 1 gram tablet 1 g PO BID Qty: 60 RF: 0 finasteride 5 mg Tablet 5 mg PO DAILY Qty: 30 RF: 0 oxazepam 10 mg capsule 10 mg PO TID Qty: 18 RF: 0 multivitamin [Multiple Vitamins] Tablet 1 tab PO DAILY Qty: 0 RF: 0 thiamine mononitrate (vit B1) [Vitamin B-1 (mononitrate)] 100 mg Tablet 100 mg PO QAM Qty: 30 RF: 0 Eliquis 5 mg tablet 5 mg PO BID Qty: 60 RF: 0 magnesium oxide 500 mg capsule 500 mg PO BID Qty: 60 RF: 0 Discharge Instructions Instructions: Pancreatitis (ED), Alcohol Use Disorder (ED) Additional Instructions: Follow up with primary care provider in 3-5 days. Return to ED sooner if any worsening or concerns. Increase oral fluids. Please take Tylenol or Ibuprofen with food every 4-6 hours as needed for pain and swelling. Take nausea medication as directed. At this time there is no evidence for acute infection or any reason to do imaging at this time. Recently had an abdominal MRI. Please try to stop drinking alcohol as this exacerbates your pancreatitis. Referrals: Benjamin Bustillos DO [Primary Care Provider] - Medical Decision Making 60-year-old male with a history of chronic pancreatitis and alcohol abuse presents via EMS with chief complaint of abdominal pain and vomiting which worsened over the last 3 days. He was seen here recently 4 days ago and had a similar evaluation. He recently had a abdominal MRI on July 01. He has a past medical history of pancreatitis, [place], hypomagnesia, hypokalemia, aspiration pneumonia, alcoholism. Labs are largely unchanged from baseline. No leukocytosis no evidence of infection, sodium is 144, potassium 3.3, anion gap 14.8 BUN 4 creatinine 0.8 GFR greater than 60 glucose 141 calcium 8.0 alk phos 132, albumin 3.0 ethyl alcohol 276, lipase 239 At this time there is no evidence for any reason for acute admission nor re-CT. Patient did have an abdominal MRI on July 01 and has been seen multiple times in department and has had multiple work-ups. He is requesting Dilaudid at this time he has been instructed previously that we will not be giving him narcotics anymore. Patient given Zofran to go instructed to follow-up with PCP patient verbalized understanding. Patient was given 40 mEq of potassium p.o. prior to discharge. This text was generated using [employer] system, please disregard any oddities of phrase or misspellings. HPI General Mode of arrival: EMS. Date/Time Provider Initiated Documentation: 07/11/20 21:19. Limitations to Documentation: no limitations. Information obtained by: patient, EMS and old records reviewed. HPI Narrative: 60-year-old male with a history of chronic pancreatitis and alcohol abuse presents via EMS with chief complaint of abdominal pain and vomiting which worsened over the last 3 days. He was seen here recently 4 days ago and had a similar evaluation. He recently had a abdominal MRI on July 01. He has a past medical history of pancreatitis, [place], hypomagnesia, hypokalemia, aspiration pneumonia, alcoholism. Related Data Home Medications Medication Instructions Recorded Confirmed Creon 1 cap PO AC & HS #120 cap 01/28/20 07/11/20 tamsulosin 0.8 mg PO DAILY #30 cap 02/07/20 07/11/20 omeprazole magnesium [Prilosec OTC] 20 mg PO DAILY #60 tab 04/30/20 07/11/20 sucralfate [Carafate] 1 g PO BID #60 tab 04/30/20 07/11/20 finasteride 5 mg PO DAILY #30 tab 06/27/20 07/11/20 oxazepam 10 mg PO TID #18 cap 06/27/20 07/11/20 Eliquis 5 mg PO BID #60 tab 07/02/20 07/11/20 magnesium oxide 500 mg PO BID #60 cap 07/02/20 07/11/20 multivitamin [Multiple Vitamins] 1 tab PO DAILY #0 tab 07/02/20 07/11/20 thiamine mononitrate (vit B1) 100 mg PO QAM #30 tab 07/02/20 07/11/20 [Vitamin B-1 (mononitrate)] Previous Rx's Medication Instructions Recorded Creon 1 cap PO AC & HS #120 cap 01/28/20 tamsulosin 0.8 mg PO DAILY #30 cap 02/07/20 omeprazole magnesium [Prilosec OTC] 20 mg PO DAILY #60 tab 04/30/20 sucralfate [Carafate] 1 g PO BID #60 tab 04/30/20 finasteride 5 mg PO DAILY #30 tab 06/27/20 oxazepam 10 mg PO TID #18 cap 06/27/20 Eliquis 5 mg PO BID #60 tab 07/02/20 magnesium oxide 500 mg PO BID #60 cap 07/02/20 multivitamin [Multiple Vitamins] 1 tab PO DAILY #0 tab 07/02/20 thiamine mononitrate (vit B1) 100 mg PO QAM #30 tab 07/02/20 [Vitamin B-1 (mononitrate)] Allergies Allergy/AdvReac Type Severity Reaction Status Date / Time Opioids - Morphine Analogues Allergy Mild urticaria Verified 06/29/20 18:18 Penicillins Allergy Unverified 06/29/20 18:18 General Stated Complaint: Abd Prob DMITRI: 3 Review of Systems Narrative: Constitutional: Negative for weight loss, alert and oriented, well groomed, normal body habitus, appears comfortable. HEENT: Denies trauma, headaches, blurry vision, nasal discharge, sore throat, trouble swallowing. Chest: Denies chest pain, palpitations, irregular rhythm, hypertension. Respiratory: Denies Shortness of breath, cough, hemoptysis. GI: Denies diarrhea, constipation. Chronic abdominal pain history of chronic pancreatitis : Denies dysuria, hematuria, flank pain, rectal bleeding. Neuro: Denies dizziness, blurry vision, weakness, syncope, headache or facial numbness. Hematologic: Denies easy bruising, intolerance to heat or cold, hair loss. [facility] Medical History Acute UTI Alcohol withdrawal Alcoholic gastritis Alcoholism /alcohol abuse ARDS (adult respiratory distress syndrome) Aspiration pneumonia COVID-19 ruled out by laboratory testing Enterocolitis Fever Ground glass opacity present on imaging of lung HTN (hypertension) Hx of hyperlipidemia Hypokalemia Hypomagnesemia Myocardial infarction x 2 Pancreatitis Pancreatitis, chronic Pneumonia Presence of pancreatic duct stent (~01/2018) Steffanie Sears. Retention of urine Septal myocardial infarction (01/18/20) probably old, [facility] records Urinary retention Surgical History S/P ERCP (~01/2018) Steffanie Sears. Family History Mother Alcohol abuse Father Alcohol abuse Social History Smoking/Tobacco Use Status: Current every day Tobacco Type: cigarettes Smoking packs per day: 1 Smoking cigarettes per day: 20.0 Smoking risk assessment performed?: Yes Alcohol Intake: current Alcohol Intake frequency: 3 or more drinks per day Alcohol type: beer Drug use: Occasionally Substance use type: marijuana Housing: apartment Do you feel safe at home: Yes Do you feel safe in your relationship?: Yes Exam Narrative Exam Narrative: Constitutional: Alert and oriented x3. Appears stated age. Normal body habitus. Head: Normocephalic, no trauma. Eyes: Pupils PERRLA, Red reflex noted, EOM's intact. Eyelids symmetrical without lesions, discharge, or swelling. ENT: Bilateral TM's WNL, External ear normal to inspection, no mastoid TTP, swelling, or erythema, Nasal turbinates WNL, no nasal discharge. Normal dentition, Posterior pharynx WNL, no exudate. Chest: RRR, Normal S1, S2, distal pulses intact. Resp: Lungs clear to auscultation bilaterally, no wheezes, rales, or rhonchi. Abdomen: Soft tender to palpation midepigastric. Left upper quadrant. Musculoskeletal: Normal gait, 5/5 strength to all four extremities. Skin: No suspicious rashes or lesions. Capillary refill less than 2 sec. Neurologic: Cranial nerves II-XII intact. Alert and oriented x 3. DTR's intact. Hematologic/Lymphatic: No ecchymosis, no lymphadenopathy. Course Vital Signs Vital signs: Vital Signs Temperature 37.1 C 05/20/21 21:19 Temperature 37.1 C 05/20/21 21:24 Temperature Source Temporal Artery Scan 07/11/20 21:24 Pulse 114 H 07/11/20 21:24 Respiratory Rate 16 07/11/20 21:24 Blood Pressure 106/67 07/11/20 21:24 Pulse Oximetry 96 07/11/20 21:24 Oxygen Delivery Method Room Air 07/11/20 21:24 Oxygen Flow Rate 0 07/11/20 21:24 Lab/Test Results Lab/Test Results: Laboratory Tests Range/Units 07/11/20 07/11/20 21:34 21:34 WBC (4.4-10.8) 10^3/uL 4.60 RBC (4.36-5.78) 10^6/uL 4.45 Hgb (13.5-17.5) g/dL 14.4 Hct (40.0-50.0) % 43.4 MCV (80-95) fL 97.5 H MCH (27.0-33.0) pg 32.4 MCHC (32.0-36.0) % 33.2 RDW (11.8-14.1) % 14.3 H Plt Count (130-400) 10^3/uL 385 MPV (8.0-11.0) fL 8.8 Immature Gran % 0.4 Neutrophils % 26.6 Lymphocytes % 61.3 Monocytes % 8.0 Eosinophils % 2.4 Basophils % 1.3 Nucleated RBC % % 0 Absolute Neutrophils (1.2-6.7) 10^3/uL 1.22 Absolute Lymphocytes (1.2-3.4) 10^3/uL 2.82 Absolute Monocytes (0.1-0.8) 10^3/uL 0.37 Absolute Eosinophils (0.0-0.7) 10^3/uL 0.11 Absolute Basophils (0.0-0.2) 10^3/uL 0.06 Sodium (136-145) mmol/L 144 Potassium (3.5-5.1) mmol/L 3.3 L Chloride (98-107) mmol/L 107 Carbon Dioxide (21.0-32.0) mmol/L 22.2 Anion Gap (3-11) mmol/L 14.8 H BUN (7-18) mg/dL 4 L Creatinine (0.70-1.30) mg/dL 0.8 Estimated GFR/1.73 m2 (mL/min/1.73m2) >= 60.00 Glucose (74-106) mg/dL 141 H Calcium (8.5-10.1) mg/dL 8.0 L Magnesium (1.8-2.4) mg/dL 2.1 Total Bilirubin (0.2-1.0) mg/dL 0.3 AST (15-37) U/L 37 ALT (16-63) U/L 28 Alkaline Phosphatase (46-116) U/L 132 H Total Protein (6.4-8.2) g/dL 7.3 Albumin (3.4-5.0) g/dL 3.0 L Lipase (73-393) U/L 239 Ethyl Alcohol (<3) mg/dL 276.2
[2020-07-11] MEDS: Ketorolac 30 MG/ML VIAL IVP (22:57)
[2020-07-11] MEDS: Potassium Chloride 20 MEQ TABCR 40 MEQ PO (23:20)
[2020-07-11] MEDS: Ondansetron O.D.T. 4 MG TABEF, 3 TABS/BTL PO (23:31)
== END 2020-07-11 23:30 | disposition home or self-care (01) ==
PROVIDERS: Emergency Provider Registered Nurse Emergency; PCP Family Medicine
DX: K86.1 Other chronic pancreatitis (principal); F10.20 Alcohol dependence, uncomplicated
CPT/HCPCS: 80053; 83690; 96361; 96374; 96375; 99284; 80320; 83735; 85025; 99283; J1885; J2405

== ENCOUNTER 2020-07-15 22:47 | Inpatient (IN) | payer MEDICAID, SELFPAY ==
[2020-07-15] VITALS (10 sets, daily range): BP systolic 147–198; BP diastolic 87–112; PULSE 78–98; RESP 19–24; TEMP 36.6; O2SAT 96–99
--- NOTE | 2020-07-15 23:00 | RT.EKG_ITS ---
APPROVED REPORT Exam: Resting ECG Reason for Exam: epigastric pain Patient Location: E HR:92 bpm ECG Measurements Heart Rate 92 AXIS AL 138 P 70 QRSd 85 QRS -16 QT 380 T 33 QTc 471 Conclusion Sinus rhythm...normal P axis, V-rate 60- 99 Low voltage, extremity leads...all extremity leads <0.5mV Physician: No stemi
--- NOTE | 2020-07-15 23:07 | W.ED.GENAD ---
Discharge Plan Disposition Patient Disposition: [facility] INPATIENT Condition: Good Discharge Details Chief Complaint: Abd Prob Clinical Impression: Acute pancreatitis Primary Care Provider: Benjamin Bustillos ED Provider: Fidel Smith Home Meds and New Rx's Prescriptions: No Action Creon 12,000-38,000 -60,000 unit capsule,delayed release(DR/EC) 1 cap PO AC & HS Qty: 120 RF: 0 tamsulosin 0.4 mg Capsule 0.8 mg PO DAILY Qty: 30 RF: 0 omeprazole magnesium [Prilosec OTC] 20 mg tablet,delayed release (DR/EC) 20 mg PO DAILY Qty: 60 RF: 0 sucralfate [Carafate] 1 gram tablet 1 g PO BID Qty: 60 RF: 0 finasteride 5 mg Tablet 5 mg PO DAILY Qty: 30 RF: 0 oxazepam 10 mg capsule 10 mg PO TID Qty: 18 RF: 0 multivitamin [Multiple Vitamins] Tablet 1 tab PO DAILY Qty: 0 RF: 0 thiamine mononitrate (vit B1) [Vitamin B-1 (mononitrate)] 100 mg Tablet 100 mg PO QAM Qty: 30 RF: 0 Eliquis 5 mg tablet 5 mg PO BID Qty: 60 RF: 0 magnesium oxide 500 mg capsule 500 mg PO BID Qty: 60 RF: 0 Medical Decision Making 60-year-old male with a history of alcohol abuse, hypertension, hyperlipidemia, chronic pancreatitis, pancreatic mass, myocardial infarction, has had previous pancreatic stents, with subsequent removal, right upper extremity DVT chronically anticoagulated with apixaban, occasional upper GI bleeds, continued chronic alcoholism, multiple admissions for recurrent chronic alcoholic gastritis and recurrent pancreatitis, who presents today for epigastric pain. Patient states that he has had pain for the last 4 days in his epigastric region since he was discharged from the emergency department 4 days ago. At that time work-up was unremarkable. Patient states that he has been avoiding alcohol until today. He states he has been taking his medications otherwise as directed. He admits to vomiting 4 times today without blood. He admits to pain in the epigastric region. He is specifically asking for narcotic pain medication here in the ER, but states that he wants the pain improved. Patient has no other complaints at this time. He denies diarrhea, chest pain, headache, shortness of breath, bandlike sensation around the chest, chest heaviness. He denies any exertional component of his symptoms. He does admit to drinking orange juice and coffee today which aggravated his symptoms as well. Physical exam demonstrates mild epigastric tenderness. No signs of an acute surgical abdomen. Suspect the patient's recurrent alcohol use, in conjunction with his chronic gastritis, and coffee and orange juice use is likely contributing component to his pain today. His chronic recurrent pancreatitis is certainly on the differential as well. No indication for CT scan at this time. No fever or chills to suggest abscess. Will get labs, gently rehydrate, give GI cocktail, Bentyl, Ofirmev, and Carafate. 11:55 PM Laboratory work-up is returned, no white count bandemia or left shift. Hemoglobin stable. Anion gap minimally elevated at 11.9. Renal function good, troponin and EKG unremarkable. Alcohol level 11. Lipase is elevated at 710 consistent with his previous episodes of acute pancreatitis. Patient continues to remain nauseous and has difficulty tolerating p.o. We will admit for pain control, IV fluids. Discussed the case with Dr. Haor, he agrees with the assessment and plan. I will place bridging orders on his behalf. I have extensively reviewed the treatment plan with the patient. I have addressed all patient concerns at this time. I have also discussed the plan with the admitting physician and they agree with the current assessment and plan and have agreed to assume responsibility for the patient. All parties demonstrate verbal understanding and agreement with our assessment and plan at this time. The documentation in this chart was dictated using [employer] dictation software. Please excuse any dictation errors. HPI General Date/Time Provider Initiated Documentation: 07/15/20 22:56. HPI Narrative: 60-year-old male with a history of alcohol abuse, hypertension, hyperlipidemia, chronic pancreatitis, pancreatic mass, myocardial infarction, has had previous pancreatic stents, with subsequent removal, right upper extremity DVT chronically anticoagulated with apixaban, occasional upper GI bleeds, continued chronic alcoholism, multiple admissions for recurrent chronic alcoholic gastritis and recurrent pancreatitis, who presents today for epigastric pain. Patient states that he has had pain for the last 4 days in his epigastric region since he was discharged from the emergency department 4 days ago. At that time work-up was unremarkable. Patient states that he has been avoiding alcohol until today. He states he has been taking his medications otherwise as directed. He admits to vomiting 4 times today without blood. He admits to pain in the epigastric region. He is specifically asking for narcotic pain medication here in the ER, but states that he wants the pain improved. Patient has no other complaints at this time. He denies diarrhea, chest pain, headache, shortness of breath, bandlike sensation around the chest, chest heaviness. He denies any exertional component of his symptoms. He does admit to drinking orange juice and coffee today which aggravated his symptoms as well. Related Data Home Medications Medication Instructions Recorded Confirmed Creon 1 cap PO AC & HS #120 cap 01/28/20 07/11/20 tamsulosin 0.8 mg PO DAILY #30 cap 02/07/20 07/15/20 omeprazole magnesium [Prilosec OTC] 20 mg PO DAILY #60 tab 04/30/20 07/15/20 sucralfate [Carafate] 1 g PO BID #60 tab 04/30/20 07/15/20 finasteride 5 mg PO DAILY #30 tab 06/27/20 07/15/20 oxazepam 10 mg PO TID #18 cap 06/27/20 07/15/20 Eliquis 5 mg PO BID #60 tab 07/02/20 07/11/20 magnesium oxide 500 mg PO BID #60 cap 07/02/20 07/15/20 multivitamin [Multiple Vitamins] 1 tab PO DAILY #0 tab 07/02/20 07/15/20 thiamine mononitrate (vit B1) 100 mg PO QAM #30 tab 07/02/20 07/15/20 [Vitamin B-1 (mononitrate)] Previous Rx's Medication Instructions Recorded Creon 1 cap PO AC & HS #120 cap 01/28/20 tamsulosin 0.8 mg PO DAILY #30 cap 02/07/20 omeprazole magnesium [Prilosec OTC] 20 mg PO DAILY #60 tab 04/30/20 sucralfate [Carafate] 1 g PO BID #60 tab 04/30/20 finasteride 5 mg PO DAILY #30 tab 06/27/20 oxazepam 10 mg PO TID #18 cap 06/27/20 Eliquis 5 mg PO BID #60 tab 07/02/20 magnesium oxide 500 mg PO BID #60 cap 07/02/20 multivitamin [Multiple Vitamins] 1 tab PO DAILY #0 tab 07/02/20 thiamine mononitrate (vit B1) 100 mg PO QAM #30 tab 07/02/20 [Vitamin B-1 (mononitrate)] Allergies Allergy/AdvReac Type Severity Reaction Status Date / Time Opioids - Morphine Analogues Allergy Mild urticaria Verified 07/15/20 22:58 Penicillins Allergy Unverified 07/15/20 22:58 General Stated Complaint: Abd Prob DMITRI: 3 Review of Systems All systems reviewed & are unremarkable except as noted in HPI and below PFSH Medical History Acute UTI Alcohol withdrawal Alcoholic gastritis Alcoholism /alcohol abuse ARDS (adult respiratory distress syndrome) Aspiration pneumonia COVID-19 ruled out by laboratory testing Enterocolitis Fever Ground glass opacity present on imaging of lung HTN (hypertension) Hx of hyperlipidemia Hypokalemia Hypomagnesemia Myocardial infarction x 2 Pancreatitis Pancreatitis, chronic Pneumonia Presence of pancreatic duct stent (~01/2018) Sean Sears Retention of urine Septal myocardial infarction (01/18/20) probably old, [facility] records Urinary retention Surgical History S/P ERCP (~01/2018) Sean Sears Family History Mother Alcohol abuse Father Alcohol abuse Social History Smoking/Tobacco Use Status: Current every day Tobacco Type: cigarettes Smoking packs per day: 1 Smoking cigarettes per day: 20.0 Smoking risk assessment performed?: Yes Alcohol Intake: current Alcohol Intake frequency: 3 or more drinks per day Alcohol type: beer Drug use: Occasionally Substance use type: marijuana Housing: apartment Do you feel safe at home: Yes Do you feel safe in your relationship?: Yes Exam Narrative Exam Narrative: 1.Const: Well-nourished, Well-developed, appearing stated age 2.Eyes: PERRL, no conjunctival injection, and symmetrical lids. 3.ENT: Atraumatic external nose and ears. Moist MM. Neck: Symmetric, trachea midline, No thyromegaly. 4.CVS: +S1/S2, No murmurs or gallops. Peripheral pulses 2+ and equal in all extremities. Brisk capillary refill in all extremities. 5.RESP: Unlabored respiratory effort. Clear to auscultation bilaterally. No wheezes rales or rhonchi 6.GI: Soft, nondistended, mild epigastric tenderness. No lower abdominal tenderness, negative Ackerman sign. Abdomen is notably nonsurgical at this time. 7.MSK: Normocephalic/Atraumatic, Extremities w/o deformity or ttp No cyanosis or clubbing, Normal movement of all extremities 8.Skin: Warm, Dry. No rashes or lesions. 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 Sensation grossly intact, no focal neurologic deficits. 10.Psych: (AAO) x3. Appropriate mood and affect Course Vital Signs Vital signs: Vital Signs Temperature 36.6 C 07/15/20 22:50 Pulse 94 H 07/15/20 22:50 Respiratory Rate 20 07/15/20 22:50 Blood Pressure 147/112 H 07/15/20 22:50 Pulse Oximetry 99 07/15/20 22:50 Temperature 36.6 C 07/15/20 22:50 Temperature Source Skin 07/15/20 22:50 Pulse 94 H 07/15/20 22:50 Respiratory Rate 20 07/15/20 22:50 Respiratory Effort Non-Labored 07/15/20 23:01 Blood Pressure 147/112 H 07/15/20 22:50 Blood Pressure Position Supine 07/15/20 22:50 Pulse Oximetry 99 07/15/20 22:50 Oxygen Delivery Method Room Air 07/15/20 22:50 Oxygen Flow Rate 0 07/15/20 22:50 Pain Level 10 07/15/20 22:50
[2020-07-15 23:18] LABS: Abs Immature Grans 0.03 10^3/uL (0.0-0.06); Absolute Basophil Count 0.03 10^3/uL (0.0-0.2); Absolute Eosinophil Count 0.03 10^3/uL (0.0-0.7); Absolute Lymphocyte Count 1.45 10^3/uL (1.2-3.4); Absolute Monocyte Count 0.54 10^3/uL (0.1-0.8); Absolute Neutrophil Count 5.17 10^3/uL (1.2-6.7); Basophils % 0.4; Eosinophils % 0.4; HCT 45.3 % (40.0-50.0); HGB 15.4 g/dL (13.5-17.5); Immature Grans % 0.4; MCH 32.7 pg (27.0-33.0); MCV 96.2 fL (80-95); MPV 9.1 fL (8.0-11.0); Monocytes % 7.4; Neutrophils % 71.4; Nucleated RBC 0 %; Platelet Count 262 10^3/uL (130-400); RBC 4.71 10^6/uL (4.36-5.78); RDW 13.7 % (11.8-14.1); RDW-SD 48.9 fL; WBC 7.25 10^3/uL (4.4-10.8)
[2020-07-15] MEDS: Normal Saline 500 ML IV (23:27)
[2020-07-15] MEDS: Ondansetron 4 MG/2 ML VIAL IVP (23:28)
[2020-07-15 23:31] LABS: ETHANOL BLOOD 11.4 mg/dL (<3)
[2020-07-15] MEDS: ACETAMINOPHEN 1,000 MG/100 ML BTL 400 MG IVPB (23:31)
[2020-07-15] MEDS: Sucralfate 1 GM TAB PO (23:32)
[2020-07-15] MEDS: Dicyclomine 20 MG TAB PO (23:32)
[2020-07-15 23:38] LABS: ALT 23 U/L (16-63); AST 28 U/L (15-37); Albumin 3.1 g/dL (3.4-5.0); Alkaline Phosphatase 152 U/L (46-116); Anion Gap 11.9 mmol/L (3-11); BUN 3 mg/dL (7-18); Bilirubin, Total 0.6 mg/dL (0.2-1.0); CO2 25.1 mmol/L (21.0-32.0); CREATININE 0.8 mg/dL (0.70-1.30); Calcium 8.4 mg/dL (8.5-10.1); Chloride 106 mmol/L (98-107); Glucose 173 mg/dL (74-106); Lipase 710 U/L (73-393); Potassium 3.7 mmol/L (3.5-5.1); Sodium 143 mmol/L (136-145); Total Protein 7.5 g/dL (6.4-8.2)
[2020-07-15 23:39] LABS: Troponin I < 0.05 ng/mL (<0.06)
[2020-07-16] VITALS (16 sets, daily range): BP systolic 142–194; BP diastolic 83–105; PULSE 85–106; RESP 1–30; TEMP 36.1–37; O2SAT 95–99
[2020-07-16] MEDS: fentaNYL 100 MCG/2 ML VIAL 75 MCG IVP ×5 (00:33→06:07)
[2020-07-16] MEDS: Normal Saline 1,000 ML 1000 ML IV (01:33)
[2020-07-16] MEDS: Normal Saline Flush 10 ML SYR IVP ×5 (01:33→20:24)
[2020-07-16 02:50] LABS: Source Nasal/Nares
[2020-07-16] MEDS: Normal Saline 1,000 ML 150 ML IV ×3 (03:00→18:24)
--- NOTE | 2020-07-16 06:55 | W.PM.HP.N ---
Date of service: 07/16/20 Time of Service: 06:59 Assessment and Plan Assessment and plan (1) Acute pancreatitis: Status: Acute Assessment and plan: He has been admitted for recurrent pancreatitis. By history he states that he is had very little alcohol in the last month and was only 1/2 can of beer yesterday. He has not responded to the treatment with fentanyl intravenously. He will be maintained on intravenous fluids, repeat labs this morning and I will switch him to hydromorphone for pain. (2) Urinary retention: Status: Acute Assessment and plan: I have requested a post void bladder scan. He may need urology consultation. History of Present Illness History of Present Illness Chief Complaint: Abdominal pain Narrative: This 60-year-old male is here because of severe abdominal pain, nausea and vomiting. He has a history of recurrent pancreatitis is likely due to alcohol intake. He was recently admitted to the hospital and discharged for a bout of pancreatitis. He says that he has only had 1/2 can of beer in the last month and has been going to AA meetings weekly and talking with his addictions recovery specialist regularly. The half can of beer that he had was yesterday. He was in the emergency department a few days ago because of pain and at that time his blood tests were normal. He says he has been taking his medicines as directed. He said the abdominal pain is worse when he walks, burps, or sneezes. He vomited twice yesterday and had retching twice. There has been no hematemesis or hematochezia. His stools have been loose. When he was seen in the hospital recently he had urinary retention and was told to see urology but he says appointments not been made yet. He was admitted last night for recurrent pancreatitis. He states he then noted that his been getting since admission has not been helping much. He has had both coronavirus vaccines and states the last one that he received was about 1 week ago. He states that he has no close relatives. He has cousins that lives in [facility] he has not been in contact with them recently. He has no other closer relatives. 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 He does smoke about 2 packs cigarettes per day but wants to stop. He uses marijuana occasionally. He says he visits with his neighbors and watches television and plays guitar and keep occupied. He says that he definitely wants no resuscitation if he should have a cardiac or respiratory arrest. Review of Systems Constitutional Constitutional: Denies chills, Denies fever(s), Reports poor appetite and Denies weakness Eyes Eyes: Denies change in vision ENT Ears, Nose, Mouth, and Throat: Denies disequilibrium Cardiovascular Cardiovascular: Denies chest pain, Denies leg edema, Reports dyspnea on exertion and Reports orthopnea Respiratory Respiratory: Denies cough and Reports dyspnea on exertion Gastrointestinal Gastrointestinal: Denies hematochezia, Denies diarrhea, Reports loose stools, Reports nausea, Reports vomiting and Denies hematemesis Genitourinary Genitourinary: Reports oliguria and Reports difficulty urinating Comments: He states he is continue to have difficulty with urination. His stream is quite slow. Neurologic Neurologic: Denies disequilibrium and Denies weakness [facility] Medical History Acute UTI Alcohol withdrawal Alcoholic gastritis Alcoholism /alcohol abuse ARDS (adult respiratory distress syndrome) Aspiration pneumonia COVID-19 ruled out by laboratory testing Enterocolitis Fever Ground glass opacity present on imaging of lung HTN (hypertension) Hx of hyperlipidemia Hypokalemia Hypomagnesemia Myocardial infarction x 2 Pancreatitis Pancreatitis, chronic Pneumonia Presence of pancreatic duct stent (~01/2018) Sean Sears Retention of urine Septal myocardial infarction (01/18/20) probably old, [facility] records Urinary retention Surgical History S/P ERCP (~01/2018) Sean Sears Family History Mother Alcohol abuse Father Alcohol abuse Social History Smoking/Tobacco Use Status: Current every day Tobacco Type: cigarettes Smoking packs per day: 1 Smoking cigarettes per day: 20.0 Smoking risk assessment performed?: Yes Alcohol Intake: current Alcohol Intake frequency: 3 or more drinks per day Alcohol type: beer Drug use: Occasionally Substance use type: marijuana Housing: apartment Do you feel safe at home: Yes Do you feel safe in your relationship?: Yes Meds Allergies and Home Medications Allergies Allergy/AdvReac Type Severity Reaction Status Date / Time Opioids - Morphine Analogues Allergy Mild urticaria Verified 07/15/20 22:58 Penicillins Allergy Unverified 07/15/20 22:58 Home Medications Medication Instructions Recorded Confirmed Type Creon 1 cap PO AC & HS #120 cap 01/28/20 07/11/20 Rx tamsulosin 0.8 mg PO DAILY #30 cap 02/07/20 07/15/20 Rx omeprazole magnesium [Prilosec OTC] 20 mg PO DAILY #60 tab 04/30/20 07/15/20 Rx sucralfate [Carafate] 1 g PO BID #60 tab 04/30/20 07/15/20 Rx finasteride 5 mg PO DAILY #30 tab 06/27/20 07/15/20 Rx oxazepam 10 mg PO TID #18 cap 06/27/20 07/15/20 Rx Eliquis 5 mg PO BID #60 tab 07/02/20 07/11/20 Rx magnesium oxide 500 mg PO BID #60 cap 07/02/20 07/15/20 Rx multivitamin [Multiple Vitamins] 1 tab PO DAILY #0 tab 07/02/20 07/15/20 Rx thiamine mononitrate (vit B1) 100 mg PO QAM #30 tab 07/02/20 07/15/20 Rx [Vitamin B-1 (mononitrate)] Results Labs Result diagrams: 07/15/20 23:09 07/15/20 23:09 Labs: Laboratory Results - last 24 hr 07/15/20 07/15/20 07/15/20 23:09 23:09 23:09 WBC 7.25 RBC 4.71 Hgb 15.4 Hct 45.3 MCV 96.2 H MCH 32.7 MCHC 34.0 RDW 13.7 Plt Count 262 D MPV 9.1 Immature Gran % 0.4 Neutrophils % 71.4 Lymphocytes % 20.0 Monocytes % 7.4 Eosinophils % 0.4 Basophils % 0.4 Nucleated RBC % 0 Absolute Neutrophils 5.17 Absolute Lymphocytes 1.45 Absolute Monocytes 0.54 Absolute Eosinophils 0.03 Absolute Basophils 0.03 Sodium 143 Potassium 3.7 Chloride 106 Carbon Dioxide 25.1 Anion Gap 11.9 H BUN 3 L Creatinine 0.8 Estimated GFR/1.73 m2 >= 60.00 Glucose 173 H Calcium 8.4 L Total Bilirubin 0.6 AST 28 ALT 23 Alkaline Phosphatase 152 H Troponin I < 0.05 Total Protein 7.5 Albumin 3.1 L Lipase 710 H Ethyl Alcohol 11.4 COVID-19 Source 07/16/20 00:30 WBC RBC Hgb Hct MCV MCH MCHC RDW Plt Count MPV Immature Gran % Neutrophils % Lymphocytes % Monocytes % Eosinophils % Basophils % Nucleated RBC % Absolute Neutrophils Absolute Lymphocytes Absolute Monocytes Absolute Eosinophils Absolute Basophils Sodium Potassium Chloride Carbon Dioxide Anion Gap BUN Creatinine Estimated GFR/1.73 m2 Glucose Calcium Total Bilirubin AST ALT Alkaline Phosphatase Troponin I Total Protein Albumin Lipase Ethyl Alcohol COVID-19 Source Nasal/nares Last Vital Signs Temp 36.1 C L 07/16/20 05:43 Pulse 86 07/16/20 05:43 Resp 20 07/16/20 05:43 BP 172/102 H 07/16/20 05:43 Pulse Ox 98 07/16/20 05:43 COVID-19 Screening Have you, or household traveled for leisure in last 14 days?: No Had IN PERSON contact w/suspected or confirmed C-19 person: No
[2020-07-16] MEDS: HYDROmorphone 2 MG/ML VIAL 1 MG IVP ×6 (08:16→22:29)
[2020-07-16 08:19] LABS: Abs Immature Grans 0.01 10^3/uL (0.0-0.06); Absolute Basophil Count 0.02 10^3/uL (0.0-0.2); Absolute Eosinophil Count 0.01 10^3/uL (0.0-0.7); Absolute Lymphocyte Count 1.23 10^3/uL (1.2-3.4); Absolute Monocyte Count 0.68 10^3/uL (0.1-0.8); Absolute Neutrophil Count 5.21 10^3/uL (1.2-6.7); Basophils % 0.3; Eosinophils % 0.1; HCT 40.1 % (40.0-50.0); HGB 13.6 g/dL (13.5-17.5); Immature Grans % 0.1; Lymphocytes % 17.2; MCH 32.9 pg (27.0-33.0); MCHC 33.9 % (32.0-36.0); MCV 97.1 fL (80-95); MPV 9.5 fL (8.0-11.0); Monocytes % 9.5; Neutrophils % 72.8; Nucleated RBC 0 %; Platelet Count 212 10^3/uL (130-400); RBC 4.13 10^6/uL (4.36-5.78); RDW 14.4 % (11.8-14.1); RDW-SD 50.8 fL; WBC 7.16 10^3/uL (4.4-10.8)
[2020-07-16 08:29] LABS: Anion Gap 9.2 mmol/L (3-11); BUN 2 mg/dL (7-18); CO2 25.8 mmol/L (21.0-32.0); CREATININE 0.7 mg/dL (0.70-1.30); Calcium 7.7 mg/dL (8.5-10.1); Chloride 108 mmol/L (98-107); Glucose 113 mg/dL (74-106); Potassium 3.8 mmol/L (3.5-5.1); Sodium 143 mmol/L (136-145)
[2020-07-16] MEDS: Tamsulosin 0.4 MG CAPCR 0.8 MG PO (08:55)
[2020-07-16] MEDS: Thiamine 100 MG TAB PO (08:55)
[2020-07-16] MEDS: Apixaban 5 MG TAB PO ×2 (08:55→20:00)
[2020-07-16] MEDS: Pantoprazole 40 MG VIAL IVP (08:56)
--- NOTE | 2020-07-16 09:45 | PDOC.CMIN ---
- If Service Date Differs Date of service: 07/16/20 Time of Service: 09:46 Care Management Initial Assess REASON FOR HOSPITALIZATION:: Acute pancreatitis PAST MEDICAL HISTORY/PAST SURGICAL HISTORY:: Medical History . Acute UTI. Alcohol withdrawal. Alcoholic gastritis. Alcoholism /alcohol abuse. ARDS (adult respiratory distress syndrome). Aspiration pneumonia. COVID-19 ruled out by laboratory testing. Enterocolitis. Fever. Ground glass opacity present on imaging of lung. HTN (hypertension). Hx of hyperlipidemia. Hypokalemia. Hypomagnesemia. Myocardial infarction. x 2. Pancreatitis. Pancreatitis, chronic. Pneumonia. Presence of pancreatic duct stent (~01/2018). Nakul Sears.[place]. Retention of urine. Septal myocardial infarction (01/18/20). probably old, [facility] records. Urinary retention. Surgical History . S/P ERCP (~01/2018). [place] PREVIOUS FUNCTIONAL STATUS/SOCIAL/FAMILY SUPPORTS:: Guillermo, (Juan Jose' preferred nickname) lives alone in [place]. He is unemployed and spends his time playing his guitar and watching television. 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 CURRENT FUNCTIONAL STATUS:: Guillermo was siting up in bed when CM met with him. He was grimacing and stated that his pain was a 10/10 and that he was waiting for the nurse to bring him pain medication. Guillermo was pleasant and agreeable to conversation. He shared details of his illness and the fact that his pancreatitis is chronic and that he is often in pain. He also spoke about his music and the fact that he is quite good, having played the guitar since the age of 5. ADVANCE DIRECTIVES:: None on file but would like a blank copy to review. Has patient been provided with info about the portal/API?: Yes Did the patient sign up for the portal?: No CODE STATUS:: DNR/DNI INSURANCE COVERAGE / FINANCIAL ISSUES:: Medicaid CURRENT HOME/COMMUNITY SERVICES/EQUIPMENT:: uses a cane PRIMARY CARE PHYSICIAN:: Benjamin Bustillos POTENTIAL DISCHARGE NEEDS:: Follow up with PCP and plan of care PATIENT/FAMILY EDUCATION NEEDS:: Review of discharge instructions, medications, limitations, follow up plan, Ask Me Three TRANSPORTATION:: RCT coordinated by CM PLAN:: Guillermo will likely be discharged home with no new services, although he did state that he would be open to home health. He will follow up with his PCP and discharge plan of care. Guillermo will likely transport via RCT coordinated by CM. CM will continue to support Guillermo and assess for discharge planning needs. Readmission - Within the Past 30 Days Yes or No: Y - Date of First Admission Date of 1st Admission: 06/29/20 - Date of this Admission Date of Admission: 07/15/20 This admission was: Through ED - Office Visit Since 1st Admission Have you seen your PCP in the office since discharge?: No Had an appointment Been Scheduled?: Yes - I. Interview patient and/or Family Difficulty reaching your doctor or getting an office appt?: No - Ask the Care Team Members: What do you think caused the patient to be readmitted: Guillermo was discharged home with pancreatitis and started to drink alcohol again. - ED visits How many ED visits in the past 12 months: 18 - Assessment for Readmission Summary of readmission circumstances, based upon interviews: Guillermo (Juan Jose) has been hospitalized on multiple occasions for pancreatitis. He has been advised to stop drinking alcohol but has been unable to do so for any period of time. He has had blood levels done 11 times this year alone and all but one were positive for etoh; 8 of them were above the legal limit of intoxication..
[2020-07-16] MEDS: Nicotine 21 MG/24 HR PATCH TD (10:43)
[2020-07-16] MEDS: Albuterol/Ipratropium 3 ML UPD VIAL UPD (11:05)
--- NOTE | 2020-07-16 11:37 | DI.RAD_ITS ---
Exam(s) XR CHEST 2V PA LATERAL EXAM: XR CHEST 2V PA LATERAL CLINICAL HISTORY: cough, diminished breath sounds TECHNIQUE: 2D digital imaging was performed. COMPARISON: CR,XR XR CHEST 2V PA LATERAL from 04/30/2020 CR,XR XR CHEST 2V PA LATERAL from 04/30/[address] CHEST/ABD/PEL W from 06/17/2020 FINDINGS: MEDIASTINUM: Normal. HEART: Normal. PULMONARY VASCULATURE: Normal. LUNGS: Clear. PLEURAL SPACE: No pleural effusion or pneumothorax. BONE:Degenerative changes lower thoracic spine. IMPRESSION: No acute pulmonary findings. DATA REPOSITORY: RADIATION DOSE DELIVERED:
[2020-07-16 11:50] LABS: COVID-19 PCR Negative (Negative)
[2020-07-16] MEDS: Mometasone 220 MCG 14 DOSE INHALER 1 PUFF IH (20:02)
[2020-07-16] MEDS: LORazepam 1 MG TAB PO/SL (21:15)
[2020-07-16 21:39] LABS: Ionized Calcium 0.97 mmol/L (1.12-1.32)
[2020-07-17 01:02] VITALS: BP 161/85; PULSE 90; RESP 20; TEMP 37.5; O2SAT 94
[2020-07-17] MEDS: HYDROmorphone 2 MG/ML VIAL 1 MG IVP ×3 (01:02→23:46)
[2020-07-17] MEDS: LORazepam 1 MG TAB PO/SL ×2 (01:15→08:25)
[2020-07-17] MEDS: Normal Saline 1,000 ML 150 ML IV ×3 (01:17→20:26)
[2020-07-17] MEDS: Normal Saline Flush 10 ML SYR IVP ×3 (01:17→20:26)
[2020-07-17 08:08] VITALS: BP 180/95; PULSE 96; RESP 20; TEMP 36.9; O2SAT 95
[2020-07-17] MEDS: Mometasone 220 MCG 14 DOSE INHALER 1 PUFF IH ×2 (08:21→20:34)
[2020-07-17] MEDS: Nicotine 21 MG/24 HR PATCH TD (08:22)
[2020-07-17] MEDS: Multivitamin TAB 1 TAB PO (08:22)
[2020-07-17] MEDS: Folic Acid 1 MG TAB PO (08:22)
[2020-07-17] MEDS: Tamsulosin 0.4 MG CAPCR 0.8 MG PO (08:22)
[2020-07-17] MEDS: Apixaban 5 MG TAB PO ×2 (08:22→20:27)
[2020-07-17] MEDS: Thiamine 100 MG TAB PO (08:22)
[2020-07-17] MEDS: Pantoprazole 40 MG VIAL IVP (08:23)
--- NOTE | 2020-07-17 11:30 | PHA.REVIEW ---
Pharmacy Admission Review - Admission Clinical Review (Last Reviewed 07/15/20 @ 23:10 by Fidel Smith DO) Acute pancreatitis (Acute) Urinary retention (Acute) Opioids - Morphine Analogues Allergy (Mild, Verified 07/15/20 22:58) urticaria Penicillins Allergy (Unverified 07/15/20 22:58) Height 5 ft 7 in Weight 69 kg - Renal Dosing Renal Dosing: BUN 2 mg/dL (7-18) L 07/16/20 08:05 Creatinine 0.7 mg/dL (0.70-1.30) 07/16/20 08:05 Medications needing adjustments: Reviewed (Crcl ~90 mL/min current meds okay) - Anticoagulation Anticoagulation: Hgb 13.6 g/dL (13.5-17.5) 07/16/20 08:05 Hct 40.1 % (40.0-50.0) 07/16/20 08:05 Plt Count 212 10^3/uL (130-400) 07/16/20 08:05 Creatinine 0.7 mg/dL (0.70-1.30) 07/16/20 08:05 DVT Prohphylaxis: N/A Therapeutic Anticoagulation: Reviewed Medications: Apixaban - Opiate Usage Evaluate Pain Scale/Pains Meds: Intervened Scheduled Bowel Reg ordered if on Opiates?: No (will mention to provider) - Relevant Labs Sodium 143 mmol/L (136-145) 07/16/20 08:05 Potassium 3.8 mmol/L (3.5-5.1) 07/16/20 08:05 Chloride 108 mmol/L (98-107) H 07/16/20 08:05 Electrolytes, C-Reactive P, ESR: Reviewed - DM Control DM Control: Glucose 113 mg/dL (74-106) H 07/16/20 08:05 Insulin Dosing: N/A - Heart Failure/MN Heart Failure/MN: Troponin I < 0.05 ng/mL (<0.06) 07/15/20 23:09 EF%, EDWINA's, B-Blockers, Diuretics: Reviewed - BP Control BP Control: Blood Pressure 180/95 Blood Pressure 161/85 If elevated: Reviewed (BP has been elevated so far this admission, provider aware.) - Qtc Review If Elevated: Reviewed (QTc 471 on admission) - IV to PO Switch IV Medications: Reviewed - Home Meds Home Med List reviewed: Reviewed (Recommended to avoid chronic aluminum containing products (sucralfate) in combination with multivitamins as it may increase the absorption of aluminum and the risk of aluminum toxicity.) Relevent Home Meds Not ordered & why?: creon, finasteride, magnesium oxide, omeprazole(has pantoprazole ordered), oxazepam(has lorazepam ordered), sucralfate - Current meds Current Medication Order Review: Intervened (Asked provider about need of IV multivitamin/thiamine/folic acid bag as pt has PO orders for those meds as well. IV bag discontinued.) - Comments Comments/Follow Ups: Watch BP, labs and for med changes (need of BM meds, home med orders once no longer NPO, avoid QT prolonging meds).
[2020-07-17 13:51] VITALS: BP 152/91; PULSE 110; RESP 19; TEMP 37.4; O2SAT 97
--- NOTE | 2020-07-17 15:06 | PDOC.CMPRO ---
- If Service Date Differs Date of service: 07/17/20 Time of Service: 15:06 Care Management Progress Note S/O: Guillermo was resting when CM attempted to meet with him multiple times today. As his plan has not changed today, CM did not feel it necessary to wake him. CM will continue to follow. A: Juan Jose is a 60 year old male admitted to [facility] on 07/15/20 with acute pancreatitis. P: Guillermo will likely be discharged home with no new services, although he did state that he would be open to home health. He will follow up with his PCP and discharge plan of care. Guillermo will likely transport via [facility] coordinated by CM. CM will continue to support Guillermo and assess for discharge planning needs.
[2020-07-17 16:02] VITALS: BP 164/101; PULSE 106; RESP 20; TEMP 37.4; O2SAT 97
--- NOTE | 2020-07-17 20:02 | W.PM.PROGNOT ---
Date of Service Date of service: 07/17/20 Time of Service: 16:02 Assessment and Plan Assessment and plan (1) Acute on chronic pancreatitis: Status: Acute Assessment and plan: Improving abd pain. Will advance diet as tolerated. (2) Alcoholism, chronic: Status: Chronic Assessment and plan: He endorsed only having 1/2 of a drink a few days before admission. Is, however, currently experiencing withdrawal. Oral thiamin, folate, MVI (3) Urinary retention: Status: Acute Assessment and plan: Cont Flomax (4) Chronic anticoagulation: Status: Acute Assessment and plan: H/O RUE DVT; will determine when he has completed 3 months of tx and then discuss stopping AC. (5) Alcohol withdrawal: Status: Acute Assessment and plan: Cont CIWA monitoring and prn lorazepam as needed. Qualifiers: Complication of substance-induced condition: with perceptual disturbance Qualified Code(s): F10.232 - Alcohol dependence with withdrawal with perceptual disturbance (6) HTN (hypertension): Status: Chronic Assessment and plan: Not on an antihypertensive currently. Add Metoprolol tartrate 25mg po BID. Monitor Subjective Subjective Patient reports: vomiting and afebrile; denies shortness of breath Interval history since last seen: Pt has been receiving Lorazepam for CIWA scores. Sleeping much of the day. Intermittent cough with scant sputum. Exam Const General: no acute distress Nutritional Appearance: average body habitus Orientation: confused and other (Lethargic) Resp Effort & Inspection: normal respiratory effort Auscultation: clear to auscultation bilaterally and diminished lung sounds Cardio Rate: tachycardic Rhythm: regular rhythm Heart Sounds: S1 normal and S2 normal GI Inspection: non-distended Palpation: soft Extrem General: no pedal edema and no calf tenderness Objective Last Vital Signs Temp 37.4 C 07/17/20 16:02 Pulse 106 H 07/17/20 16:02 Resp 20 07/17/20 16:02 BP 164/101 H 07/17/20 16:02 Pulse Ox 97 07/17/20 16:02 Laboratory Results - last 24 hr 07/16/20 13:07 Ionized Calcium 0.97 L
[2020-07-17] MEDS: Metoprolol 25 MG TAB PO (20:27)
[2020-07-17 23:25] VITALS: BP 188/113; PULSE 98; RESP 18; TEMP 36.9; O2SAT 97
[2020-07-18] VITALS (8 sets, daily range): BP systolic 173–202; BP diastolic 97–114; PULSE 79–91; RESP 18–20; TEMP 36.4–37; O2SAT 93–98
[2020-07-18] MEDS: Normal Saline 1,000 ML 150 ML IV ×4 (03:14→23:42)
[2020-07-18] MEDS: HYDROmorphone 2 MG/ML VIAL 1 MG IVP ×3 (03:47→08:04)
[2020-07-18] MEDS: Folic Acid 1 MG TAB PO (08:03)
[2020-07-18] MEDS: Multivitamin TAB 1 TAB PO (08:03)
[2020-07-18] MEDS: Apixaban 5 MG TAB PO ×2 (08:03→20:40)
[2020-07-18] MEDS: Thiamine 100 MG TAB PO (08:03)
[2020-07-18] MEDS: Tamsulosin 0.4 MG CAPCR 0.8 MG PO (08:03)
[2020-07-18] MEDS: Metoprolol 25 MG TAB PO ×2 (08:03→13:26)
[2020-07-18] MEDS: Normal Saline Flush 10 ML SYR IVP (08:04)
[2020-07-18] MEDS: Pantoprazole 40 MG VIAL IVP (08:05)
[2020-07-18] MEDS: Mometasone 220 MCG 14 DOSE INHALER 1 PUFF IH ×2 (08:39→20:43)
[2020-07-18] MEDS: Senna TAB 2 TAB PO (09:59)
[2020-07-18] MEDS: Nicotine 21 MG/24 HR PATCH TD (09:59)
[2020-07-18] MEDS: Polyethylene Glycol 3350 17 GM PACKET PO (09:59)
--- NOTE | 2020-07-18 10:53 | CMPROGNOTE_ITS ---
- If Service Date Differs Date of service: 07/18/20 Time of Service: 10:54 Care Management Progress Note S/O: Guillermo was sitting up in bed when CM met with him. He reported that he is still having a lot of pain today, and that, per MD, he would likely remain at [facility] for another couple of days, which he stated that he is comfortable with. He discussed his plan to connect with his sustainability coach upon discharge so she can meet him at his house to go over options for recovery from alcohol. He st ated that he understands that he needs to stop drinking, but it is hard to remain sober when he is at home with nothing else to do. He stated that his daily routine is uneventful, and that it leads him to drinking. He reported that he is not interested in AA, and that he has been a part of it in the past, but it didn't work for him. CM asked if he would like his sustainability coach to meet him in person at the hospital, as that is now an option, and he declined at this time. CM will continue to follow. A: Juan Jose is a 60 year old male admitted to [facility] on 07/15/20 with acute pancreatitis. P: Guillermo will likely be discharged home with no new services, although he did state that he would be open to home health. He will follow up with his PCP and discharge plan of care. Guillermo will likely transport via [facility] coordinated by MARY ANN. CM will continue to support Guillermo and assess for discharge planning needs.
[2020-07-18] MEDS: HYDROmorphone 2 MG TAB PO ×3 (11:21→20:34)
--- NOTE | 2020-07-18 12:04 | W.PM.PROGNOT ---
Date of Service Date of service: 07/18/20 Time of Service: 12:04 Assessment and Plan Assessment and plan (1) HTN (hypertension): Status: Chronic Assessment and plan: BP still elevated after addition yesterday of metoprolol 25mg BID. Will increase metoprolol to 50mg BID. HR in the 80-90's today. Monitor. (2) Alcohol withdrawal: Status: Acute Assessment and plan: No CIWA scoring overnight that triggered lorazepam dosing. More alert today. He is aware of the significant risks he faces if he continues to drink, even if it's only intermittently. Qualifiers: Complication of substance-induced condition: with perceptual disturbance Qualified Code(s): F10.232 - Alcohol dependence with withdrawal with perceptual disturbance (3) Acute on chronic pancreatitis: Status: Acute Assessment and plan: Change to po dilaudid. Advance to clear liquids and then as tolerated. Add Creon back to his regimen. (4) Constipation: Status: Acute Assessment and plan: Soft abd distension noted. Senna 2 tabs now. Miralax now and then daily. Subjective Subjective Patient reports: feels better and afebrile Interval history since last seen: No lorazepam overnight per CIWA monitoring. He would like to try clear liquids. No BM for 3 days. Exam Const General: cooperative and no acute distress Nutritional Appearance: average body habitus Orientation: alert, oriented to person and oriented to place Eyes Sclera: sclerae normal Pupils: PERRL Resp Effort & Inspection: normal respiratory effort Auscultation: diminished lung sounds and rhonchi Cardio Rate: regular rate Rhythm: regular rhythm Heart Sounds: S1 normal and S2 normal GI Inspection: distended Palpation: tender (mild, diffuse) Extrem General: no pedal edema and no calf tenderness Psych Mental Status: mental status grossly normal Speech and Movement: speech and movement normal Affect: blunted Objective Last Vital Signs Temp 37 C 07/18/20 11:26 Pulse 82 07/18/20 11:26 Resp 20 07/18/20 11:26 BP 173/100 H 07/18/20 11:26 Pulse Ox 94 07/18/20 11:26
[2020-07-18] MEDS: amLODIPine 5 MG TAB PO (16:28)
[2020-07-18] MEDS: Metoprolol 25 MG TAB 50 MG PO (20:40)
[2020-07-18] MEDS: LORazepam 1 MG TAB PO/SL (22:09)
[2020-07-18] MEDS: Lisinopril 10 MG TAB PO (22:10)
--- NOTE | 2020-07-19 02:40 | NUR.NOTE ---
Nursing Note: 07/08/20 22:00 Patient was agitated d/t the need to take his medicine for his blood pressure and to have his vital signs taken. Patient shouted i will never get sleep you keep taking my vital signs, im alive, im okay Patient specifically told this RN to let him sleep and that he doesnt want to have his vital signs taken despite education about the importance to monitor his vital signs.
[2020-07-19] MEDS: LORazepam 1 MG TAB PO/SL (05:13)
[2020-07-19] MEDS: HYDROmorphone 2 MG TAB PO (05:14)
[2020-07-19] MEDS: Normal Saline 1,000 ML 150 ML IV (05:15)
[2020-07-19 05:19] VITALS: BP 180/98; PULSE 78; RESP 17; TEMP 36.6; O2SAT 98
[2020-07-19 07:50] VITALS: BP 153/86; PULSE 86; RESP 18; TEMP 36.7; O2SAT 95
[2020-07-19] MEDS: Pantoprazole 40 MG VIAL IVP (08:01)
[2020-07-19] MEDS: Metoprolol 25 MG TAB 50 MG PO (08:01)
[2020-07-19] MEDS: Tamsulosin 0.4 MG CAPCR 0.8 MG PO (08:01)
[2020-07-19] MEDS: Apixaban 5 MG TAB PO (08:01)
[2020-07-19] MEDS: Multivitamin TAB 1 TAB PO (08:01)
[2020-07-19] MEDS: Folic Acid 1 MG TAB PO (08:01)
[2020-07-19] MEDS: Thiamine 100 MG TAB PO (08:01)
[2020-07-19] MEDS: Nicotine 21 MG/24 HR PATCH TD (08:02)
[2020-07-19] MEDS: Normal Saline Flush 10 ML SYR IVP (08:02)
[2020-07-19] MEDS: Polyethylene Glycol 3350 17 GM PACKET PO (08:02)
[2020-07-19] MEDS: Lisinopril 10 MG TAB PO (08:09)
[2020-07-19] MEDS: Mometasone 220 MCG 14 DOSE INHALER 1 PUFF IH (09:53)
--- NOTE | 2020-07-19 10:32 | DSE_ITS ---
Date of service: 07/19/20 Time of Service: 10:33 DS: Diagnosis Discharge Diagnosis (1) HTN (hypertension): Start date: 07/19/20 Start time: 10:33 Status: Chronic Asessment and Plan: Elevated while inpatient, metoprolol increased to 50 mg BID with better control He will be discharged home on this dose and will need follow up with his PCP to continue to monitor and adjust dosing. F/u in 2 weeks (2) Alcohol withdrawal: Start date: 07/19/20 Start time: 10:36 Status: Chronic Asessment and Plan: He is ready to go home no pain no scoring overnight no signs or symtpoms (3) Acute on chronic pancreatitis: Start date: 07/19/20 Start time: 10:37 Status: Acute Asessment and Plan: Tolerating a diet, no nausea or vomiting, states I am ready to go home excitedly No abd pain with palpation Discharging home (4) Constipation: Start date: 07/19/20 Start time: 10:37 Status: Resolved Asessment and Plan: Large BM overnight. discussed with Dr. Duvall Discharge Plan Disposition Patient Disposition: HOME Condition: Good Discharge Details Reason For Visit: ACUTE ON CHRONIC PANCREATITIS Admit Date/Time: 07/18/20 08:53 Admit Provider: Tony Haro Attending Provider: Tony Haro Primary Care Provider: Benjamin Bustillos [facility] Course Hospital Course: This 60-year-old male is here because of severe abdominal pain, nausea and vomiting. He has a history of recurrent pancreatitis is likely due to alcohol intake. He was recently admitted to the hospital and discharged for a bout of pancreatitis. He says that he has only had 1/2 can of beer in the last month and has been going to AA meetings weekly and talking with his cost recovery technician regularly. The half can of beer that he had was day prior to admission. He was in the emergency department a few days ago because of pain and at that time his blood tests were normal. He says he has been taking his medicines as directed. He said the abdominal pain was worse when he walked, burped, or sneezed. He vomited twice day prior to admission and had retching twice. There has been no hematemesis or hematochezia. His stools have been loose. When he was seen in the hospital recently he had urinary retention and was told to see urology but he says appointments not been made yet. He was admitted for recurrent pancreatitis. Since admission he has improved. He is ready for discharge. He did have one night that he went through severe withdrawal requiring several doses of lorazepam. The next day he was scoring nothing and feeling improved. He did have an elevated blood pressure while in the hospital his BB was increased to 50 BID since his BP has been normotensive. He has also had bladder scans in the 's requiring straight caths but refusing, he was suppose to follow up with urology, we will make sure he has an appt prior to discharge. He is able to eat and drink, no pain to abd. Therefore he is being discharged home. He can follow up with PCP as needed. Home Meds and New Rx's Prescriptions: New metoprolol tartrate 25 mg Tablet 50 mg PO BID Qty: 60 RF: 0 Continued Creon 12,000-38,000 -60,000 unit capsule,delayed release(DR/EC) 1 cap PO AC & HS Qty: 120 RF: 0 tamsulosin 0.4 mg Capsule 0.8 mg PO DAILY Qty: 30 RF: 0 omeprazole magnesium [Prilosec OTC] 20 mg tablet,delayed release (DR/EC) 20 mg PO DAILY Qty: 60 RF: 0 sucralfate [Carafate] 1 gram tablet 1 g PO BID Qty: 60 RF: 0 finasteride 5 mg Tablet 5 mg PO DAILY Qty: 30 RF: 0 oxazepam 10 mg capsule 10 mg PO TID Qty: 18 RF: 0 multivitamin [Multiple Vitamins] Tablet 1 tab PO DAILY Qty: 0 RF: 0 thiamine mononitrate (vit B1) [Vitamin B-1 (mononitrate)] 100 mg Tablet 100 mg PO QAM Qty: 30 RF: 0 Eliquis 5 mg tablet 5 mg PO BID Qty: 60 RF: 0 magnesium oxide 500 mg capsule 500 mg PO BID Qty: 60 RF: 0 Discharge Instructions Instructions: Urinary Retention in Men (GEN), Chronic Hypertension (DC) Additional Instructions: STOP DRINKING Follow up with PCP in 2 weeks Follow up with Urology Your metoprolol has been increased to 50 mg BID as your blood pressure was high in the hospital Follow a low fat diet Continue to use your cost recovery technician Stand Alone Forms: Nursing Discharge Form Referrals: Marco Antonio Armenta MD [ [facility] STAFF PHYSICIAN] - (Please call to make a follow up appointment. ) Benjamin Bustillos DO [Primary Care Provider] - 08/01/20 11:30 am Activity:: Activity as Tolerated Equipment/Supplies:: No Equipment Needed Diet:: low fat Discharge Orders Discharge Orders: Discharge Order (Routine); Ordered 07/19/20 Ordered By: Mabel Mayen DS: Summary Time Spent with Patient providing and/or coordinating discharge services: Greater than 30 minutes Status at Discharge Functional status at discharge: independent ambulation Overall status at discharge: patient is back to baseline Mental Status: mental status grossly normal Speech and Movement: speech and movement normal Mood: congruent mood Affect: blunted Exam Const General: cooperative and no acute distress Nutritional Appearance: average body habitus Orientation: alert, oriented to person, oriented to place, confused and other (Lethargic) Eyes Sclera: sclerae normal Pupils: PERRL Resp Effort & Inspection: normal respiratory effort Auscultation: clear to auscultation bilaterally Cardio Jugular venous pressure: no JVD Rate: regular rate and tachycardic Rhythm: regular rhythm Heart Sounds: S1 normal and S2 normal GI Inspection: normal to inspection and distended Palpation: soft Skin General skin exam: no rashes or lesions noted Wounds: no wounds Neuro General: patient alert, patient awake and patient oriented x3 Extrem General: no pedal edema and no calf tenderness Psych Mental Status: mental status grossly normal Speech and Movement: speech and movement normal Mood: congruent mood Affect: blunted DS: Data Vitals/I&O Vitals and I&O: Vital Signs Temperature 36.7 C 07/19/20 07:50 Temperature Source Tympanic 07/19/20 07:50 Pulse 86 07/19/20 07:50 Pulse Rhythm Regular 07/19/20 02:25 Pulse 93 H 07/16/20 00:31 Respiratory Rate 18 07/19/20 07:50 Respiratory Effort Non-Labored 07/19/20 02:25 Respiratory Depth Normal 07/19/20 02:25 Respiratory Pattern Normal 07/19/20 02:25 Blood Pressure 153/86 H 07/19/20 07:50 Blood Pressure Mean 112 07/16/20 00:31 Blood Pressure Position Supine 07/15/20 22:50 Pulse Oximetry 95 07/19/20 07:50 Oxygen Delivery Method Room Air 07/19/20 07:50 Oxygen Flow Rate 0 07/19/20 07:50 Pain Level 9 07/18/20 20:34 Comment 07/19/20 03:49 Intake & Output 07/18/20 07/18/20 07/19/20 11:59 23:59 11:59 Intake Total 2220 / 4800 2580 / 4800 832.5 / 832.5 Output Total 2040 / 5480 3440 / 5480 1050 / 1050 Balance 180 / -680 -860 / -680 -217.5 / -217.5 Weight 68.9 kg 67.9 kg Intake: IV 2020 / 4000 1980 / 4000 832.5 / 832.5 Oral 200 / 800 600 / 800 Output: Urine 2040 / 5480 3440 / 5480 1050 / 1050 Other: Urine Color Yellow Pale Yellow Urine Appearance Clear Clear Clear Urine Odor Normal None Comment charge nurse notified. refused to be waken up Voiding Methods Toilet Urinal Urinal Urinal Data Completed and Pending Completed studies during hospitalization [Text1]: Exam(s) XR CHEST 2V PA LATERAL EXAM: XR CHEST 2V PA LATERAL CLINICAL HISTORY: cough, diminished breath sounds TECHNIQUE: 2D digital imaging was performed. COMPARISON: CR,XR XR CHEST 2V PA LATERAL from 04/30/2020 CR,XR XR CHEST 2V PA LATERAL from 04/30/[address] CHEST/ABD/PEL W from 06/17/2020 FINDINGS: MEDIASTINUM: Normal. HEART: Normal. PULMONARY VASCULATURE: Normal. LUNGS: Clear. PLEURAL SPACE: No pleural effusion or pneumothorax. BONE:Degenerative changes lower thoracic spine. IMPRESSION: No acute pulmonary findings. [facility] Medical History (Updated 07/19/20 @ 10:37 by Mabel Mayen NP) Acute UTI Alcohol withdrawal Alcoholic gastritis Alcoholism /alcohol abuse ARDS (adult respiratory distress syndrome) Aspiration pneumonia COVID-19 ruled out by laboratory testing Enterocolitis Fever Ground glass opacity present on imaging of lung HTN (hypertension) Hx of hyperlipidemia Hypokalemia Hypomagnesemia Myocardial infarction x 2 Pancreatitis Pancreatitis, chronic Pneumonia Presence of pancreatic duct stent (~01/2018) [place] Retention of urine Septal myocardial infarction (01/18/20) probably old, [facility] records Urinary retention Surgical History S/P ERCP (~01/2018) Sean Sears Family History Mother Alcohol abuse Father Alcohol abuse Social History Smoking/Tobacco Use Status: Current every day Tobacco Type: cigarettes Smoking packs per day: 1 Smoking cigarettes per day: 20.0 Smoking risk assessment performed?: Yes Alcohol Intake: current Alcohol Intake frequency: 3 or more drinks per day Alcohol type: beer Drug use: Occasionally Substance use type: marijuana Housing: apartment Do you feel safe at home: Yes Do you feel safe in your relationship?: Yes
--- NOTE | 2020-07-19 11:53 | PDOC.CMDIS ---
- If Service Date Differs Date of service: 07/19/20 Time of Service: 11:53 LACE Index Scoring Tool - Questions: Length of Stay (in days): 1 Acuity (Admit via E.D.?): Yes Comorbidities: Previous M.I. E.D. Visits: 18 - Answers: Total Score: 9 Risk of Readmission: Low Risk Care Management Discharge Reason for Hospitalization: Acute pancreatitis Discharge Plan: Guillermo will be discharged home with no new services. He will follow up with his PCP and discharge plan of care. Guillermo will transport via [facility] coordinated by CM. Patient/Family Education Needs: Review of discharge instructions, medications, limitations, follow up Services Needed at Discharge: Transportation
== END 2020-07-19 12:07 | disposition home or self-care (01) | DRG 439 ==
LOC: ER 07-16 00:30 → MS 07-16 00:39
PROVIDERS: Admitting Provider Family Medicine; Emergency Provider Student in an Organized Health Care Education/Training Program; PCP Family Medicine; Visit Provider Family Medicine
DX: K85.20 Alcohol induced acute pancreatitis without necrosis or infection (principal); F10.232 Alcohol dependence with withdrawal with perceptual disturbance; K86.0 Alcohol-induced chronic pancreatitis; R33.9 Retention of urine, unspecified; F17.210 Nicotine dependence, cigarettes, uncomplicated; Z66 Do not resuscitate; F10.20 Alcohol dependence, uncomplicated; Z20.822 Contact with and (suspected) exposure to COVID-19; I10 Essential (primary) hypertension; E78.5 Hyperlipidemia, unspecified; I25.2 Old myocardial infarction; Z79.01 Long term (current) use of anticoagulants; Z86.718 Personal history of other venous thrombosis and embolism; K59.00 Constipation, unspecified
CPT/HCPCS: 36415; 80048; 80053; 83690; 87635; 93005; 94640; 96361; 96365; 96375; 99285; 71046; 80320; 82330; 84484; 85025; 93010; 99219; 99232; 99233; 99239; J0131; J2405; J3010; J7620

== ENCOUNTER 2020-07-21 17:51 | Emergency (ER) | payer MEDICAID, SELFPAY ==
[2020-07-21] VITALS (24 sets, daily range): BP systolic 101–153; BP diastolic 62–89; PULSE 88–108; RESP 9–23; TEMP 36.8; O2SAT 95–99
--- NOTE | 2020-07-21 18:18 | ED.GENADUL_ITS ---
Discharge Plan Disposition Patient Disposition: HOME Condition: Stable Discharge Details Clinical Impression: Chronic abdominal pain, Hypokalemia, Vomiting, Alcoholism, chronic Primary Care Provider: Benjamin Bustillos ED Provider: Jose Luis Zhong Steward Meds and New Rx's Prescriptions: New ondansetron 4 mg tablet,disintegrating 4 mg PO TID PRN (Reason: nausea and vomiting) Qty: 6 RF: 0 Continued Creon 12,000-38,000 -60,000 unit capsule,delayed release(DR/EC) 1 cap PO AC & HS Qty: 120 RF: 0 tamsulosin 0.4 mg Capsule 0.8 mg PO DAILY Qty: 30 RF: 0 omeprazole magnesium [Prilosec OTC] 20 mg tablet,delayed release (DR/EC) 20 mg PO DAILY Qty: 60 RF: 0 sucralfate [Carafate] 1 gram tablet 1 g PO BID Qty: 60 RF: 0 finasteride 5 mg Tablet 5 mg PO DAILY Qty: 30 RF: 0 oxazepam 10 mg capsule 10 mg PO TID Qty: 18 RF: 0 metoprolol tartrate 25 mg Tablet 50 mg PO BID Qty: 60 RF: 0 multivitamin [Multiple Vitamins] Tablet 1 tab PO DAILY Qty: 0 RF: 0 thiamine mononitrate (vit B1) [Vitamin B-1 (mononitrate)] 100 mg Tablet 100 mg PO QAM Qty: 30 RF: 0 Eliquis 5 mg tablet 5 mg PO BID Qty: 60 RF: 0 magnesium oxide 500 mg capsule 500 mg PO BID Qty: 60 RF: 0 Discharge Instructions Instructions: Hypokalemia (ED), Chronic Pain (ED), Acute Nausea and Vomiting (ED) Additional Instructions: Drink plenty of fluids and get plenty of rest. Alternate tylenol and motrin as needed and directed for pain. Follow-up with your primary care doctor in 1 week. Return to the emergency department with any worsening or new concerning symptoms. Referrals: Benjamin Bustillos DO [Primary Care Provider] - Discharge Data Discharge Physician: Emi Diane Medical Decision Making <Emi Diane DO - Last Filed: 07/21/20 19:51> 60-year-old male well known to the emergency department with a history of chronic alcohol abuse and recurrent pancreatitis presents for abdominal pain and vomiting since yesterday. Patient appears uncomfortable. Heart rate low 100s. His abdomen is tense and diffusely tender but no rigidity or guarding. Patient discharged from the floor 2 days ago for acute on chronic pancreatitis and had resolution of his pain upon discharge. Will place an IV, screening labs, give a dose of IV Tylenol, Zofran, Ativan and reassess. Delay in obtaining IV and labs due to poor peripheral access. Patient is refusing IV Tylenol as he states that does not do anything . Patient states everything that works for his pain is Dilaudid. He appears uncomfortable. Labs reviewed. White blood cell count 4. Sodium 147. Potassium 2.6. Anion gap 13. Calcium 7.9. Lipase normal at 94. Alcohol level 248. Will replete potassium with p.o. and IV. We will continue to monitor and if patient pain improves, can consider discharged home after potassium repletion. Case endorsed to Dr. Zhong to continue to monitor while finishing electrolyte repletion. Medical Records Medical records reviewed: Yes I reviewed the patient's medical records. <Jose Luis Zhong MD - Last Filed: 07/21/20 22:06> Patient signed out to me pending potassium replacement. Known to me from previous visit/admission. In and out of hospital and ED due to drinking alcohol. [facility] and I have personally told him to go to rehab as detox isn't going to cut it. Patient labs look ok other than the potassium. Alcohol level 258 tonight. Just left the hospital two days ago. Requesting more Dilaudid which I declined. Has not vomited here. Given Ketamine 20 mg over 15 minutes. Potassium replacement finished. Patient discharged home. Lab Data Lab results reviewed: Yes I reviewed the patient's lab results. HPI <Emi Diane DO - Last Filed: 07/21/20 19:51> General Mode of arrival: EMS . Date/Time Provider Initiated Documentation: 07/21/20 18:02 . Limitations to Documentation: no limitations . Information obtained by: patient . HPI Narrative: Patient is a 60-year-old male with a history of chronic alcohol abuse and recurrent pancreatitis who presents to the ED with complaint of abdominal pain and vomiting since yesterday. Patient states he vomited twice today which is mainly white. He states his abdo felicia pain is diffuse and feels like his usual pancreatitis. Patient was last admitted here last week for acute on chronic pancreatitis and was discharged home 2 days ago. Related Data Home Medications Medication Instructions Recorded Confirmed Creon 1 cap PO AC & HS #120 cap 01/28/20 07/21/20 tamsulosin 0.8 mg PO DAILY #30 cap 02/07/20 07/21/20 omeprazole magnesium [Prilosec OTC] 20 mg PO DAILY #60 tab 04/30/20 07/21/20 sucralfate [Carafate] 1 g PO BID #60 tab 04/30/20 07/21/20 finasteride 5 mg PO DAILY #30 tab 06/27/20 07/21/20 oxazepam 10 mg PO TID #18 cap 06/27/20 07/21/20 Eliquis 5 mg PO BID #60 tab 07/02/20 07/21/20 magnesium oxide 500 mg PO BID #60 cap 07/02/20 07/21/20 multivitamin [Multiple Vitamins] 1 tab PO DAILY #0 tab 07/02/20 07/21/20 thiamine mononitrate (vit B1) 100 mg PO QAM #30 tab 07/02/20 07/21/20 [Vitamin B-1 (mononitrate)] metoprolol tartrate 50 mg PO BID #60 tab 07/19/20 07/21/20 ondansetron 4 mg PO TID PRN #6 tab 07/21/20 Previous Rx's Medication Instructions Recorded Creon 1 cap PO AC & HS #120 cap 01/28/20 tamsulosin 0.8 mg PO DAILY #30 cap 02/07/20 omeprazole magnesium [Prilosec OTC] 20 mg PO DAILY #60 tab 04/30/20 sucralfate [Carafate] 1 g PO BID #60 tab 04/30/20 finasteride 5 mg PO DAILY #30 tab 06/27/20 oxazepam 10 mg PO TID #18 cap 06/27/20 Eliquis 5 mg PO BID #60 tab 07/02/20 magnesium oxide 500 mg PO BID #60 cap 07/02/20 multivitamin [Multiple Vitamins] 1 tab PO DAILY #0 tab 07/02/20 thiamine mononitrate (vit B1) 100 mg PO QAM #30 tab 07/02/20 [Vitamin B-1 (mononitrate)] metoprolol tartrate 50 mg PO BID #60 tab 07/19/20 ondansetron 4 mg PO TID PRN #6 tab 07/21/20 Allergies Allergy/AdvReac Type Severity Reaction Status Date / Time Opioids - Morphine Analogues Allergy Mild urticaria Verified 07/21/20 17:59 Penicillins Allergy Unverified 07/21/20 17:59 General Stated Complaint: Abd Prob DMITRI: 3 Review of Systems <Emi Diane DO - Last Filed: 07/21/20 19:51> All systems reviewed & are unremarkable except as noted in HPI and below Constitutional Constitutional: Reports as per HPI, Denies chills and Denies fever(s) Eyes Eyes: Denies blurry vision ENT Ears, Nose, Mouth, and Throat: Denies dizziness, Denies sore throat and Denies throat swelling Cardiovascular Cardiovascular: Denies chest pain and Denies dyspnea Respiratory Respiratory: Denies cough and Denies dyspnea Gastrointestinal Gastrointestinal: Reports abdominal pain, Denies diarrhea and Reports vomiting Genitourinary Genitourinary: Denies hematuria and Denies dysuria Musculoskeletal Musculoskeletal: Denies back pain and Denies numbness Integumentary/Breasts Skin/Breast: Denies lesions and Denies rash Neurologic Neurologic: Denies dizziness, Denies localized weakness and Denies numbness Allergic/Immunologic Allergic/Immunologic: Denies throat swelling PFSH <Emi Diane DO - Last Filed: 07/21/20 19:51> Medical History (Updated 07/21/20 @ 22:05 by Jose Luis Zhong MD) Acute UTI Alcohol withdrawal Alcoholic gastritis Alcoholism /alcohol abuse ARDS (adult respiratory distress syndrome) Aspiration pneumonia COVID-19 ruled out by laboratory testing Enterocolitis Fever Ground glass opacity present on imaging of lung HTN (hypertension) Hx of hyperlipidemia Hypokalemia Hypomagnesemia Myocardial infarction x 2 Pancreatitis Pancreatitis, chronic Pneumonia Presence of pancreatic duct stent (~01/2018) Steffanie Sears. Retention of urine Septal myocardial infarction (01/18/20) probably old, [facility] records Urinary retention Surgical History S/P ERCP (~01/2018) Sean Sears Family History Mother Alcohol abuse Father Alcohol abuse Social History Smoking/Tobacco Use Status: Current every day Tobacco Type: cigarettes Smoking packs per day: 1 Smoking cigarettes per day: 20.0 Smoking risk assessment performed?: Yes Alcohol Intake: current Alcohol Intake frequency: 3 or more drinks per day Alcohol type: beer Drug use: Occasionally Substance use type: marijuana Housing: apartment Do you feel safe at home: Yes Do you feel safe in your relationship?: Yes Exam <Emi Diane DO - Last Filed: 07/21/20 19:51> Const General: cooperative, uncomfortable and ill appearing chronically Orientation: alert, awake and oriented x3 HENMT Head: normal to inspection Face and sinus: normal facial exam Eyes General: appearance normal, both eyes and all related structures EOM: EOM intact bilaterally Neck Neck: normal visual inspection and No submandibular swelling Lymphatic: no lymphadenopathy noted Chest Chest: normal inspection of the chest and no tenderness Resp Effort & Inspection: normal respiratory effort and able to speak in complete sentences Auscultation: clear to auscultation bilaterally Cardio Rate: regular rate Rhythm: regular rhythm GI Inspection: other (tense but no rigidity or guarding) Palpation: soft, not firm, not rigid and tender (diffuse) Auscultation: normal bowel sounds and hypoactive bowel sounds Back/Spine/Pelvis Pelvis: no pain with anterior-posterior compression Skin General skin exam: no rashes or lesions noted Neuro General: patient alert, patient awake and patient oriented x3 Cognition: normal cognition Speech: speech normal Motor: muscle tone normal throughout Sensory Exam: no sensory deficits noted Extrem General: normal to inspection, full ROM, capillary refill normal, no calf tenderness bilaterally and no edema Psych Appearance: grossly normal Mental Status: mental status grossly normal Speech and Movement: speech and movement normal Affect: normal affect Course <Emi Diane DO - Last Filed: 07/21/20 19:51> Vital Signs Vital signs: Vital Signs Temperature 98.2 F 07/21/20 17:54 Pulse 103 H 07/21/20 17:54 Respiratory Rate 18 07/21/20 17:54 Pulse Oximetry 97 07/21/20 17:54 Temperature 98.2 F 07/21/20 17:54 Temperature Source Temporal Artery Scan 07/21/20 17:54 Pulse 103 H 07/21/20 17:54 Respiratory Rate 18 07/21/20 17:54 Respiratory Effort Non-Labored 07/21/20 17:57 Blood Pressure Position Sitting 07/21/20 17:54 Pulse Oximetry 97 07/21/20 17:54 Oxygen Delivery Method Room Air 07/21/20 17:54 Oxygen Flow Rate 0 07/21/20 17:54 Pain Level 10 07/21/20 17:54 Sign Out <Emi Diane DO - Last Filed: 07/21/20 19:51> Sign Out Data: Sign Out Comment: Continue to monitor while receiving potassium repletion. If patient able to tolerate p.o., can discharge to home. Last updated by Emi Diane DO at 07/21/20 19:27
[2020-07-21] MEDS: Ondansetron 4 MG/2 ML VIAL IVP (18:55)
[2020-07-21] MEDS: LORazepam 2 MG/ML VIAL 1 MG IVP (18:55)
[2020-07-21] MEDS: Normal Saline 1,000 ML 1000 ML IV (18:55)
[2020-07-21 19:03] LABS: Abs Immature Grans 0.01 10^3/uL (0.0-0.06); Absolute Basophil Count 0.03 10^3/uL (0.0-0.2); Absolute Eosinophil Count 0.06 10^3/uL (0.0-0.7); Absolute Lymphocyte Count 2.29 10^3/uL (1.2-3.4); Absolute Monocyte Count 0.62 10^3/uL (0.1-0.8); Basophils % 0.7; Eosinophils % 1.5; HCT 37.8 % (40.0-50.0); HGB 12.9 g/dL (13.5-17.5); Immature Grans % 0.2; Lymphocytes % 57.1; MCH 32.8 pg (27.0-33.0); MCHC 34.1 % (32.0-36.0); MCV 96.2 fL (80-95); MPV 9.3 fL (8.0-11.0); Monocytes % 15.5; Nucleated RBC 0 %; Platelet Count 199 10^3/uL (130-400); RBC 3.93 10^6/uL (4.36-5.78); RDW-SD 50.1 fL; WBC 4.01 10^3/uL (4.4-10.8)
[2020-07-21 19:11] LABS: ETHANOL BLOOD 248.7 mg/dL (<3)
[2020-07-21 19:16] LABS: ALT 18 U/L (16-63); AST 24 U/L (15-37); Albumin 2.5 g/dL (3.4-5.0); Alkaline Phosphatase 121 U/L (46-116); Anion Gap 13.6 mmol/L (3-11); Bilirubin, Total 0.2 mg/dL (0.2-1.0); CO2 24.4 mmol/L (21.0-32.0); CREATININE 0.7 mg/dL (0.70-1.30); Calcium 7.9 mg/dL (8.5-10.1); Chloride 109 mmol/L (98-107); Glucose 143 mg/dL (74-106); Lipase 94 U/L (73-393); Sodium 147 mmol/L (136-145); Total Protein 6.2 g/dL (6.4-8.2)
[2020-07-21 19:18] LABS: Potassium 2.6 mmol/L (3.5-5.1)
[2020-07-21] MEDS: HYDROmorphone 2 MG/ML VIAL 1 MG IVP (19:21)
[2020-07-21 19:22] LABS: BUN 1 mg/dL (7-18)
[2020-07-21] MEDS: Potassium Chloride 20 MEQ TABCR 40 MEQ PO (19:34)
[2020-07-21] MEDS: POTASSIUM CHLORIDE 20 MEQ/100 ML BAG 50 MEQ IVPB (19:34)
[2020-07-21] MEDS: Ketamine 500 MG/5 ML VIAL (21:32)
[2020-07-21] MEDS: Normal Saline 100 ML 480 ML (21:35)
[2020-07-21] MEDS: Ondansetron O.D.T. 4 MG TABEF, 3 TABS/BTL PO (22:12)
== END 2020-07-21 22:20 | disposition home or self-care (01) ==
PROVIDERS: Physician Assistant; Emergency Provider Emergency Medicine; PCP Family Medicine
DX: E87.6 Hypokalemia (principal); R11.10 Vomiting, unspecified; R10.84 Generalized abdominal pain; G89.29 Other chronic pain; F10.220 Alcohol dependence with intoxication, uncomplicated; Y90.8 Blood alcohol level of 240 mg/100 ml or more
CPT/HCPCS: 36415; 80053; 83690; 96361; 96365; 96366; 96375; 99284; 80320; 83735; 85025; J2060; J2405; J3480

== ENCOUNTER 2020-08-05 16:05 | Inpatient (IN) | payer MEDICAID, SELFPAY ==
[2020-08-05] VITALS (32 sets, daily range): BP systolic 125–160; BP diastolic 77–97; PULSE 68–107; RESP 9–30; TEMP 36.2–37; O2SAT 94–100
--- NOTE | 2020-08-05 16:15 | RT.EKG_ITS ---
APPROVED REPORT Exam: Resting ECG Reason for Exam: chest pain Patient Location: E HR:82 bpm ECG Measurements Heart Rate [address] 151 P 64 QRSd 92 QRS -20 QT 377 T 34 QTc 442 Conclusion Sinus rhythm...normal P axis, V-rate 60- 99 Low voltage, extremity leads...all extremity leads <0.5mV Physician: no stemi
--- NOTE | 2020-08-05 16:15 | DI.CT_ITS ---
Exam(s) CT ABDOMEN PELVIS W EXAM: CT ABDOMEN PELVIS W CLINICAL HISTORY: epigastric and groin pain TECHNIQUE: Imaging Protocol: Axial computed tomography images with coronal and sagittal reformatted images were created and reviewed CONTRAST MATERIAL: Intravenous: Omnipaque 350 Contrast volume:100 mL Oral: No COMPARISON: CT CT ABDOMEN PELVIS W from 06/25/[address] ABDOMEN PELVIS W from 06/25/[address] ABDOMEN PELVIS W from 06/29/[address] ABDOMEN PELVIS W from 06/29/2020 FINDINGS: The examination is limited due to patient motion artifact. ABDOMEN: Lung Bases: Normal where visualized. Liver: Normal density. No measurable mass. Portal, Superior Mesenteric, and Splenic Veins: Unremarkable. Gallbladder and Biliary Tract: There is a distended gallbladder. There has been interval development of intra and extrahepatic biliary ductal dilatation since the prior examination. No gallstones are identified. Pancreas: There is again seen calcification within the pancreas suggesting chronic pancreatitis. Mil d pancreatic atrophy is present. Unchanged prominence of the pancreatic duct is noted. No peripancr eatic fluid collections are seen. Spleen: Normal. Adrenals: No masses seen. Kidneys: Normal size, contour and axis. No radiodense stones or obstructive uropathy. No masses seen. Abdominal Aorta: Abdominal portion non-dilated. Moderate atherosclerosis. Bowel: No obstruction or bowel wall thickening. The descending and sigmoid colon is incompletely dis tended limiting evaluation. No pericolonic inflammatory changes are seen. Fluid-filled loops of sma ll bowel are noted. Appendix is unremarkable. Diverticulosis is seen in the sigmoid colon but no elisabet dence of acute diverticulitis. Peritoneal Cavity: No ascites, collection or mesenteric inflammatory response. No free air. Lymph Nodes: Within normal limits. Bones: Within normal limits for the patient's age. Soft Tissues: Unremarkable. PELVIS: Bladder: Symmetric distention, no gross wall thickening. Reproductive Organs: Mildly enlarged prostate. Lymph Nodes: Within normal limits. Bones: Within normal limits for the patient's age. IMPRESSION: 1. Interval development of intra and extrahepatic biliary ductal dilatation. Gallbladder distension. No definite cholelithiasis. Obstructing stone or mass should be considered. MRCP/ERCP should be c onsidered for further evaluation. 2. Findings again suggestive of chronic pancreatitis. No definite evidence of acute pancreatitis. 3. Fluid-filled loops of small bowel. An inflammatory/infectious enteritis may be considered. Pleas e correlate clinically. 4. Examination limited by patient motion artifact. RADIATION DOSE DELIVERED: 740.35mGy.cm Total DLP DATA REPOSITORY: All CT scans at this facility are submitted to the National Radiology Data Registry (NRDR) Dose Index Registry (DIR) with the [employer] (ACR). RADIATION OPTIMIZATION: All CT scans at this facility use at least one of these dose optimization te chniques: automated exposure control; mA and/or kV adjustment per patient size (includes targeted exa ms where dose is matched to clinical indication); or iterative reconstruction.
[2020-08-05] MEDS: Normal Saline 1,000 ML 1000 ML IV (16:29)
[2020-08-05 17:07] LABS: Bilirubin Negative (Negative); Blood Negative (Negative); Clarity Clear (Clear); Glucose Negative (Negative); Ketones Negative (Negative); Leukocyte Esterase Negative (Negative); Nitrite Negative (Negative); Specific Gravity 1.015 (1.005-1.025); Urobilinogen 0.2 EU/dL (Up TO 0.2)
[2020-08-05 17:11] LABS: Abs Immature Grans 0.01 10^3/uL (0.0-0.06); Absolute Basophil Count 0.03 10^3/uL (0.0-0.2); Absolute Eosinophil Count 0.07 10^3/uL (0.0-0.7); Absolute Lymphocyte Count 1.96 10^3/uL (1.2-3.4); Absolute Monocyte Count 0.31 10^3/uL (0.1-0.8); Absolute Neutrophil Count 1.22 10^3/uL (1.2-6.7); Basophils % 0.8; Eosinophils % 1.9; HCT 47.4 % (40.0-50.0); HGB 15.3 g/dL (13.5-17.5); Immature Grans % 0.3; Lymphocytes % 54.4; MCH 32.7 pg (27.0-33.0); MCHC 32.3 % (32.0-36.0); MCV 101.3 fL (80-95); MPV 9.5 fL (8.0-11.0); Monocytes % 8.6; Nucleated RBC 0 %; Platelet Count 278 10^3/uL (130-400); RBC 4.68 10^6/uL (4.36-5.78); RDW 13.5 % (11.8-14.1); RDW-SD 50.6 fL
[2020-08-05] MEDS: Ondansetron 4 MG/2 ML VIAL (17:16)
[2020-08-05 17:18] LABS: Lactate 3.8 mmol/L (0.6-1.4)
[2020-08-05 17:30] LABS: ALT 22 U/L (16-63); AST 29 U/L (15-37); Albumin 3.2 g/dL (3.4-5.0); Alkaline Phosphatase 112 U/L (46-116); Anion Gap 11.4 mmol/L (3-11); BUN 4 mg/dL (7-18); Bilirubin, Total 0.3 mg/dL (0.2-1.0); CO2 24.6 mmol/L (21.0-32.0); CREATININE 0.7 mg/dL (0.70-1.30); Calcium 8.2 mg/dL (8.5-10.1); Chloride 107 mmol/L (98-107); Glucose 103 mg/dL (74-106); Lipase 270 U/L (73-393); Potassium 3.7 mmol/L (3.5-5.1); Sodium 143 mmol/L (136-145); Total Protein 7.7 g/dL (6.4-8.2)
[2020-08-05] MEDS: Omnipaque 350 MG/ML 100 ML BTL IJ (17:54)
[2020-08-05] MEDS: Normal Saline - Diluent 50 ML VIAL IV (17:55)
--- NOTE | 2020-08-05 19:04 | DI.VRAD_ITS ---
PROCEDURE INFORMATION: Exam: CT Abdomen And Pelvis With Contrast Exam date and time: 08/05/2020 4:21 PM Age: 60 years old Clinical indication: Abdominal pain; Patient HX: Epigastric and groin TECHNIQUE: Imaging protocol: Computed tomography of the abdomen and pelvis with contrast. COMPARISON: CT ABDOMEN PELVIS W 06/29/2020 7:22 PM FINDINGS: Liver: Normal. No mass. Gallbladder and bile ducts: There is interval development of dilatation of intrahepatic and extrahepatic bile ducts. The common bile duct measures approximately 11 mm in diameter. No definite calculus is noted within the common bile duct. The gallbladder appears distended. Pancreas: The main pancreatic duct is also dilated measuring up to focal7 mm in diameter. The main pancreatic duct was also dilated on the prior study. However, there are coarse calcifications seen within the uncinate process of the pancreas which were also present on the prior exam. Spleen: Normal. No splenomegaly. Adrenal glands: Normal. No mass. Kidneys and ureters: Normal. No hydronephrosis. Stomach and bowel: Diverticulosis of the colon is present.Thickening of the wall of the colon. This may be artifact due to lack of distention. Appendix: No evidence of appendicitis. Intraperitoneal space: Unremarkable. No free air. No significant fluid collection. Vasculature: The aorta demonstrates moderate atherosclerotic calcification. Lymph nodes: Unremarkable. No enlarged lymph nodes. Urinary bladder: The urinary bladder appears moderately distended. Reproductive: Unremarkable as visualized. Bones/joints: Chronic degenerative changes of the spine are present. Soft tissues: Unremarkable. IMPRESSION: 1. Interval development of intrahepatic and extrahepatic bile duct dilatation and distention of the gallbladder. An obstructing process at or near the sphincter of Oddi is suspected. Correlation with ERCP or MRCP may be useful. 2. Coarse calcifications are noted within the uncinate process of the pancreas, unchanged most likely secondary to chronic pancreatitis. 3. No change in dilatation of the main pancreatic duct. 4. Diverticulosis. 5. Thickening of the wall of the colon. This may be artifact due to lack of distention. However, inflammatory bowel disease or other causes of colitis cannot be excluded. Dictated and Authenticated by: Tomasz Strauss MD. Ordering:JACIEL Parra MD
[2020-08-05] MEDS: HYDROmorphone 2 MG/ML VIAL 1 MG IVP ×2 (20:05→22:30)
--- NOTE | 2020-08-05 20:12 | ED.GENADUL_ITS ---
Discharge Plan Disposition Patient Disposition: [facility] INPATIENT Condition: Stable Discharge Details Clinical Impression: Abdominal pain, Alcoholism, chronic, Dilated cbd, acquired Admit Date/Time: 08/05/20 21:16 Admit Provider: Alejo Larson Attending Provider: Alejo Larson Primary Care Provider: Unknown,Unknown ED Provider: Fidel Smith Discharge Data Discharge Date/Time-TO BE ENTERED AT DEPARTURE: 08/05/20 22:04 Medical Decision Making This is a 60-year-old male with a history of alcohol abuse, hypertension, hyperlipidemia, pancreatitis, pancreatic mass, myocardial infarction has had previous pancreatic stents, with subsequent removal, right upper extremity DVT chronically anticoagulated with apixaban, occasional upper GI bleeds, who presents today for evaluation of epigastric pain. Patient has had multiple visi ts, multiple CAT scans recently for epigastric pain. Patient states that yesterday the pain came back, consistent with his normal pain but more severe than normal. It goes to his back. He denies any urinary complaints. He denies any fever or chills. He states the last time he drank alcohol was yesterday evening and states that it was half a can of beer yesterday evening. No other complaints at this time. No other modifying factors. Physical exam demonstrates epigastric abdominal tenderness, no guarding or rebound. No tenderness in the lower abdominal region. No significant genital tenderness. Symptoms appear consistent with multiple prior visits. He does have known pancreatic pathology, we will get a repeat CAT scan, evaluate for pancreatitis, monitor closely and reassess. 9:56 PM In spite of the patient stating that he only had 1 beer yesterday his alcohol level is 130. CT scan results have returned and demonstrates evidence of interval development of intrahepatic and extrahepatic bile duct dilatation distention of the gallbladder. However the patient's bilirubin transaminases and lipase are all normal. Symptoms appear clinically inconsistent with choledocholithiasis requiring emergent ERCP. I did contact the surgeon Dr. Rosen, he agrees with the assessment and plan. He does not feel that there is any acute surgical emergency at this time and does feel that consult is reasonable and the patient can be admitted to medicine. I did contact the hospitalist and discussed the case with Dr. Larson, he agrees with the assessment and plan. I have extensively reviewed the treatment plan with the patient. I have addressed all patient concerns at this time. I have also discussed the plan with the admitting physician and they agree with the current assessment and plan and have agreed to assume responsibility for the patient. All parties demonstrate verbal understanding and agreement with our assessment and plan at this time. The documentation in this chart was dictated using [employer] dictation software. Please excuse any dictation errors. FINDINGS: Liver: Normal. No mass. Gallbladder and bile ducts: There is interval development of dilatation of in trahepatic and extrahepatic bile ducts. The common bile duct measures approximately 11 mm in diameter. No definite calculus is noted within the common bile duct. The gallbladder appears distended. Pancreas: The main pancreatic duct is also dilated measuring up to focal7 mm in diameter. The main pancreatic duct was also dilated on the prior study. However, there are coarse calcifications seen within the uncinate process of the pancreas which were also present on the prior exam. Spleen: Normal. No splenomegaly. Adrenal glands: Normal. No mass. Kidneys and ureters: Normal. No hydronephrosis. Stomach and bowel: Diverticulosis of the colon is present.Thickening of the wall of the colon. This may be artifact due to lack of distention. Appendix: No evidence of appendicitis. Intraperitoneal space: Unremarkable. No free air. No significant fluid collection. Vasculature: The aorta demonstrates moderate atherosclerotic calcification. Lymph nodes: Unremarkable. No enlarged lymph nodes. Urinary bladder: The urinary bladder appears moderately distended. Reproductive: Unremarkable as visualized. Bones/joints: Chronic degenerative changes of the spine are present. Soft tissues: Unremarkable. IMPRESSION: 1. Interval development of intrahepatic and extrahepatic bile duct dilatation and distention of the gallbladder. An obstructing process at or near the sphincter of Oddi is suspected. Correlation with ERCP or MRCP may be useful. 2. Coarse calcifications are noted within the uncinate process of the pancreas, unchanged most likely secondary to chronic pancreatitis. 3. No change in dilatation of the main pancreatic duct. 4. Diverticulosis. 5. Thickening of the wall of the colon. This may be artifact due to lack of distention. However, inflammatory bowel disease or other causes of colitis cannot be excluded. Thank you for allowing us to participate in the care of your patient. Dictated and Authenticated by: Tomasz Strauss MD 08/05/2020 7:03 PM Eastern Time ([place] & [place]) HPI General Date/Time Provider Initiated Documentation: 08/05/20 16:12 . HPI Narrative: This is a 60-year-old male with a history of alcohol abuse, hypertension, hyperlipidemia, pancreatitis, pancreatic mass, myocardial infarction has had previous pancreatic stents, with subsequent removal, right upper extremity DVT chronically anticoagulated with apixaban, occasional upper GI bleeds, who presents today for evaluation of epigastric pain. Patient has had multiple visits, multiple CAT scans recently for epigastric pain. Patient states that yesterday the pain came back, consistent with his normal pain but more severe than normal. It goes to his back. He denies any urinary complaints. He denies any fever or chills. He states the last time he drank alcohol was yesterday evening and states that it was half a can of beer yesterday evening. No other complaints at this time. No other modifying factors Related Data Home Medications Medication Instructions Recorded Confirmed Creon 1 cap PO AC & HS #120 cap 01/28/20 08/05/20 tamsulosin 0.8 mg PO DAILY #30 cap 02/07/20 08/05/20 omeprazole magnesium [Prilosec OTC] 20 mg PO DAILY #60 tab 04/30/20 08/05/20 sucralfate [Carafate] 1 g PO BID #60 tab 04/30/20 08/05/20 finasteride 5 mg PO DAILY #30 tab 06/27/20 08/05/20 oxazepam 10 mg PO TID #18 cap 06/27/20 08/05/20 Eliquis 5 mg PO BID #60 tab 07/02/20 08/05/20 magnesium oxide 500 mg PO BID #60 cap 07/02/20 07/21/20 multivitamin [Multiple Vitamins] 1 tab PO DAILY #0 tab 07/02/20 08/05/20 thiamine mononitrate (vit B1) 100 mg PO QAM #30 tab 07/02/20 08/05/20 [Vitamin B-1 (mononitrate)] metoprolol tartrate 50 mg PO BID #60 tab 07/19/20 08/05/20 ondansetron 4 mg PO TID PRN #6 tab 07/21/20 08/05/20 Previous Rx's Medication Instructions Recorded Creon 1 cap PO AC & HS #120 cap 01/28/20 tamsulosin 0.8 mg PO DAILY #30 cap 02/07/20 omeprazole magnesium [Prilosec OTC] 20 mg PO DAILY #60 tab 04/30/20 sucralfate [Carafate] 1 g PO BID #60 tab 04/30/20 finasteride 5 mg PO DAILY #30 tab 06/27/20 oxazepam 10 mg PO TID #18 cap 06/27/20 Eliquis 5 mg PO BID #60 tab 07/02/20 magnesium oxide 500 mg PO BID #60 cap 07/02/20 multivitamin [Multiple Vitamins] 1 tab PO DAILY #0 tab 07/02/20 thiamine mononitrate (vit B1) 100 mg PO QAM #30 tab 07/02/20 [Vitamin B-1 (mononitrate)] metoprolol tartrate 50 mg PO BID #60 tab 07/19/20 ondansetron 4 mg PO TID PRN #6 tab 07/21/20 Allergies Allergy/AdvReac Type Severity Reaction Status Date / Time Opioids - Morphine Analogues Allergy Mild urticaria Verified 08/05/20 16:14 Penicillins Allergy Unverified 08/05/20 16:13 General Stated Complaint: Abd Prob DMITRI: 3 Review of Systems All systems reviewed & are unremarkable except as noted in HPI and below PFSH Medical History Acute UTI Alcohol withdrawal Alcoholic gastritis Alcoholism /alcohol abuse ARDS (adult respiratory distress syndrome) Aspiration pneumonia COVID-19 ruled out by laboratory testing Enterocolitis Fever Ground glass opacity present on imaging of lung HTN (hypertension) Hx of hyperlipidemia Hypokalemia Hypomagnesemia Myocardial infarction x 2 Pancreatitis Pancreatitis, chronic Pneumonia Presence of pancreatic duct stent (~01/2018) [place] Retention of urine Septal myocardial infarction (01/18/20) probably old, [facility] records Urinary retention Surgical History S/P ERCP (~01/2018) Steffanie Sears. Family History Mother Alcohol abuse Father Alcohol abuse Social History Smoking/Tobacco Use Status: Current every day Tobacco Type: cigarettes Smoking packs per day: 1 Smoking cigarettes per day: 20.0 Smoking risk assessment performed?: Yes Alcohol Intake: current Alcohol Intake frequency: 3 or more drinks per day Alcohol type: beer Drug use: Occasionally Substance use type: marijuana Housing: apartment Do you feel safe at home: Yes Do you feel safe in your relationship?: Yes Exam Narrative Exam Narrative: 1.Const: Well-nourished, Well-developed, appearing stated age 2.Eyes: PERRL, no conjunctival injection, and symmetrical lids. 3.ENT: Atraumatic external nose and ears. Moist MM. Neck: Symmetric, trachea midline, No thyromegaly. 4.CVS: +S1/S2, No murmurs or gallops. Peripheral pulses 2+ and equal in all extremities. Brisk capillary refill in all extremities. 5.RESP: Unlabored respiratory effort. Clear to auscultation bilaterally. No wheezes rales or rhonchi 6.GI: Soft, nondistended, pain is present in the epigastric region, similar to previous presentations. No pain in the lower abdominal regions. Genital exam was performed, testicles are unremarkable, no overt tenderness, normal cremasteric reflex. No penile tenderness 7.MSK: Normocephalic/Atraumatic, Extremities w/o deformity or ttp No cyanosis or clubbing, Normal movement of all extremities 8.Skin: Warm, Dry. No rashes or lesions. 9.Neuro: painter chassis II-XII grossly intact. Sensation grossly intact, no focal neurologic deficits. 10.Psych: (AAO) x3. Appropriate mood and affect Course Vital Signs Vital signs: Vital Signs Temperature 36.6 C 08/05/20 16:06 Pulse 107 H 08/05/20 16:06 Respiratory Rate 21 08/05/20 16:06 Blood Pressure 150/86 H 08/05/20 16:06 Pulse Oximetry 97 08/05/20 16:06 Temperature 36.6 C 08/05/20 16:06 Temperature Source Skin 08/05/20 16:06 Pulse 78 08/05/20 17:46 Pulse 90 08/05/20 18:40 Respiratory Rate 9 L 08/05/20 18:40 Respiratory Effort 08/05/20 16:53 Blood Pressure 125/80 08/05/20 17:46 Blood Pressure Mean 91 08/05/20 17:46 Pulse Oximetry 99 08/05/20 18:40 Oxygen Delivery Method Room Air 08/05/20 16:06 Oxygen Flow Rate 0 08/05/20 16:06 Pain Level 10 08/05/20 20:05 Lab/Test Results Lab/Test Results: Laboratory Tests Range/Units 08/05/20 08/05/20 08/05/20 16:50 17:04 17:04 WBC (4.4-10.8) 10^3/uL RBC (4.36-5.78) 10^6/uL Hgb (13.5-17.5) g/dL Hct (40.0-50.0) % MCV (80-95) fL MCH (27.0-33.0) pg MCHC (32.0-36.0) % RDW (11.8-14.1) % Plt Count (130-400) 10^3/uL MPV (8.0-11.0) fL Immature Gran % Neutrophils % Lymphocytes % Monocytes % Eosinophils % Basophils % Nucleated RBC % % Absolute Neutrophils (1.2-6.7) 10^3/uL Absolute Lymphocytes (1.2-3.4) 10^3/uL Absolute Monocytes (0.1-0.8) 10^3/uL Absolute Eosinophils (0.0-0.7) 10^3/uL Absolute Basophils (0.0-0.2) 10^3/uL VBG Lactate (0.6-1.4) mmol/L 3.8 H* Sodium (136-145) mmol/L 143 Potassium (3.5-5.1) mmol/L 3.7 Chloride (98-107) mmol/L 107 Carbon Dioxide (21.0-32.0) mmol/L 24.6 Anion Gap (3-11) mmol/L 11.4 H BUN (7-18) mg/dL 4 L Creatinine (0.70-1.30) mg/dL 0.7 Estimated GFR/1.73 m2 (mL/min/1.73m2) >= 60.00 Glucose (74-106) mg/dL 103 Calcium (8.5-10.1) mg/dL 8.2 L Total Bilirubin (0.2-1.0) mg/dL 0.3 AST (15-37) U/L 29 ALT (16-63) U/L 22 Alkaline Phosphatase (46-116) U/L 112 Total Protein (6.4-8.2) g/dL 7.7 Albumin (3.4-5.0) g/dL 3.2 L Lipase (73-393) U/L 270 Urine Color (Yellow) Yellow Urine Clarity (Clear) Clear Urine pH (5-8) 6.0 Ur Specific [place] (1.005-1.025) 1.015 Urine Protein (Negative) mg/dL Negative Urine Ketones (Negative) mg/dL Negative Urine Blood (Negative) Negative Urine Nitrite (Negative) Negative Urine Bilirubin (Negative) Negative Urine Urobilinogen (Up TO 0.2) EU/dL 0.2 Ur Leukocyte Esterase (Negative) Negative Urine Glucose (Negative) mg/dL Negative Ethyl Alcohol (<3) mg/dL 130.0 Range/Units 08/05/20 17:04 WBC (4.4-10.8) 10^3/uL 3.60 L RBC (4.36-5.78) 10^6/uL 4.68 Hgb (13.5-17.5) g/dL 15.3 Hct (40.0-50.0) % 47.4 MCV (80-95) fL 101.3 H MCH (27.0-33.0) pg 32.7 MCHC (32.0-36.0) % 32.3 RDW (11.8-14.1) % 13.5 Plt Count (130-400) 10^3/uL 278 MPV (8.0-11.0) fL 9.5 Immature Gran % 0.3 Neutrophils % 34.0 Lymphocytes % 54.4 Monocytes % 8.6 Eosinophils % 1.9 Basophils % 0.8 Nucleated RBC % % 0 Absolute Neutrophils (1.2-6.7) 10^3/uL 1.22 Absolute Lymphocytes (1.2-3.4) 10^3/uL 1.96 Absolute Monocytes (0.1-0.8) 10^3/uL 0.31 Absolute Eosinophils (0.0-0.7) 10^3/uL 0.07 Absolute Basophils (0.0-0.2) 10^3/uL 0.03 VBG Lactate (0.6-1.4) mmol/L Sodium (136-145) mmol/L Potassium (3.5-5.1) mmol/L Chloride (98-107) mmol/L Carbon Dioxide (21.0-32.0) mmol/L Anion Gap (3-11) mmol/L BUN (7-18) mg/dL Creatinine (0.70-1.30) mg/dL Estimated GFR/1.73 m2 (mL/min/1.73m2) Glucose (74-106) mg/dL Calcium (8.5-10.1) mg/dL Total Bilirubin (0.2-1.0) mg/dL AST (15-37) U/L ALT (16-63) U/L Alkaline Phosphatase (46-116) U/L Total Protein (6.4-8.2) g/dL Albumin (3.4-5.0) g/dL Lipase (73-393) U/L Urine Color (Yellow) Urine Clarity (Clear) Urine pH (5-8) Ur Specific [place] (1.005-1.025) Urine Protein (Negative) mg/dL Urine Ketones (Negative) mg/dL Urine Blood (Negative) Urine Nitrite (Negative) Urine Bilirubin (Negative) Urine Urobilinogen (Up TO 0.2) EU/dL Ur Leukocyte Esterase (Negative) Urine Glucose (Negative) mg/dL Ethyl Alcohol (<3) mg/dL
[2020-08-05 20:50] LABS: Lactate 2.6 mmol/L (0.6-1.4)
--- NOTE | 2020-08-05 21:03 | W.PM.HP.N ---
Date of service: 08/05/20 Time of Service: 21:03 Assessment and Plan Assessment and plan (1) Chronic abdominal pain: Status: Acute Assessment and plan: Likely some combination of gastritis and/or chronic pancreatitis. Will plave NPO with IVF. The ductal dilatation on CT may prove to be incidental as any obstructing physiology is not related to a stone. In any case will proceed with MRCP. As to EtOH, will give banana bag, scheduled benzos and CIWA protocol. Note that he thinks he may not be taking one or two of his prescribed meds. History of Present Illness History of Present Illness Chief Complaint: abd pain Narrative: 60 male with h/o alcohol abuse, chronic pancreatitis, GERD, numerous visits for abd pain -- reports he has been having epigastric pain for some 2 years, worse over past 4 days: epigastric, variable radiation to back or diffusely in abdomen, says it is basically the same as right along. Here in ER w/u of note for white count 3.6, Hct 47, T Bili 0.3, and normal lipase and transaminases. CT shows dilatation of CBD, hepatic ducts and gall bladder, suggestive of obstructing lesion at or near sphincter of Oddi. ER reviewed with surgery, advise MRCP. Admitted pending same. Reports last drink earlier this morning, EtOH level 130. Review of Systems All systems reviewed & are unremarkable except as noted in HPI and below PFSH Medical History Acute UTI Alcohol withdrawal Alcoholic gastritis Alcoholism /alcohol abuse ARDS (adult respiratory distress syndrome) Aspiration pneumonia COVID-19 ruled out by laboratory testing Enterocolitis Fever Ground glass opacity present on imaging of lung HTN (hypertension) Hx of hyperlipidemia Hypokalemia Hypomagnesemia Myocardial infarction x 2 Pancreatitis Pancreatitis, chronic Pneumonia Presence of pancreatic duct stent (~01/2018) [place] Retention of urine Septal myocardial infarction (01/18/20) probably old, [facility] records Urinary retention Surgical History S/P ERCP (~01/2018) [place] Family History Mother Alcohol abuse Father Alcohol abuse Social History Smoking/Tobacco Use Status: Current every day Tobacco Type: cigarettes Smoking packs per day: 1 Smoking cigarettes per day: 20.0 Smoking risk assessment performed?: Yes Alcohol Intake: current Alcohol Intake frequency: 3 or more drinks per day Alcohol type: beer Drug use: Occasionally Substance use type: marijuana Housing: apartment Do you feel safe at home: Yes Do you feel safe in your relationship?: Yes Meds Allergies and Home Medications Allergies Allergy/AdvReac Type Severity Reaction Status Date / Time Opioids - Morphine Analogues Allergy Mild urticaria Verified 08/05/20 16:14 Penicillins Allergy Unverified 08/05/20 16:13 Home Medications Medication Instructions Recorded Confirmed Type Creon 1 cap PO AC & HS #120 cap 01/28/20 08/05/20 Rx tamsulosin 0.8 mg PO DAILY #30 cap 02/07/20 08/05/20 Rx omeprazole magnesium [Prilosec OTC] 20 mg PO DAILY #60 tab 04/30/20 08/05/20 Rx sucralfate [Carafate] 1 g PO BID #60 tab 04/30/20 08/05/20 Rx finasteride 5 mg PO DAILY #30 tab 06/27/20 08/05/20 Rx oxazepam 10 mg PO TID #18 cap 06/27/20 08/05/20 Rx Eliquis 5 mg PO BID #60 tab 07/02/20 08/05/20 Rx magnesium oxide 500 mg PO BID #60 cap 07/02/20 07/21/20 Rx multivitamin [Multiple Vitamins] 1 tab PO DAILY #0 tab 07/02/20 08/05/20 Rx thiamine mononitrate (vit B1) 100 mg PO QAM #30 tab 07/02/20 08/05/20 Rx [Vitamin B-1 (mononitrate)] metoprolol tartrate 50 mg PO BID #60 tab 07/19/20 08/05/20 Rx ondansetron 4 mg PO TID PRN #6 tab 07/21/20 08/05/20 Rx Exam Narrative Exam Narrative: 145/898, 98, 37.0, 10, 95% RA. HEENT atraumatic, anicteric; neck supple; lungs scattered rhonchi; abdomen +BS, soft, minimal epigastric tenderness; extremities w/o edema; neuro Ox3, moves all 4s. Results Labs Result diagrams: 08/05/20 17:04 08/05/20 17:04 Labs: Laboratory Results - last 24 hr 08/05/20 08/05/20 08/05/20 16:50 17:04 17:04 WBC RBC Hgb Hct MCV MCH MCHC RDW Plt Count MPV Immature Gran % Neutrophils % Lymphocytes % Monocytes % Eosinophils % Basophils % Nucleated RBC % Absolute Neutrophils Absolute Lymphocytes Absolute Monocytes Absolute Eosinophils Absolute Basophils VBG Lactate 3.8 H* Sodium 143 Potassium 3.7 Chloride 107 Carbon Dioxide 24.6 Anion Gap 11.4 H BUN 4 L Creatinine 0.7 Estimated GFR/1.73 m2 >= 60.00 Glucose 103 Calcium 8.2 L Total Bilirubin 0.3 AST 29 ALT 22 Alkaline Phosphatase 112 Total Protein 7.7 Albumin 3.2 L Lipase 270 Urine Color Yellow Urine Clarity Clear Urine pH 6.0 Ur Specific [place] 1.015 Urine Protein Negative Urine Ketones Negative Urine Blood Negative Urine Nitrite Negative Urine Bilirubin Negative Urine Urobilinogen 0.2 Ur Leukocyte Esterase Negative Urine Glucose Negative Ethyl Alcohol 130.0 08/05/20 08/05/20 17:04 20:30 WBC 3.60 L RBC 4.68 Hgb 15.3 Hct 47.4 MCV 101.3 H MCH 32.7 MCHC 32.3 RDW 13.5 Plt Count 278 MPV 9.5 Immature Gran % 0.3 Neutrophils % 34.0 Lymphocytes % 54.4 Monocytes % 8.6 Eosinophils % 1.9 Basophils % 0.8 Nucleated RBC % 0 Absolute Neutrophils 1.22 Absolute Lymphocytes 1.96 Absolute Monocytes 0.31 Absolute Eosinophils 0.07 Absolute Basophils 0.03 VBG Lactate 2.6 H* Sodium Potassium Chloride Carbon Dioxide Anion Gap BUN Creatinine Estimated GFR/1.73 m2 Glucose Calcium Total Bilirubin AST ALT Alkaline Phosphatase Total Protein Albumin Lipase Urine Color Urine Clarity Urine pH Ur Specific [place] Urine Protein Urine Ketones Urine Blood Urine Nitrite Urine Bilirubin Urine Urobilinogen Ur Leukocyte Esterase Urine Glucose Ethyl Alcohol Last Vital Signs Temp 37.0 C 08/05/20 20:12 Pulse 98 H 08/05/20 20:16 Resp 10 L 08/05/20 20:16 BP 145/88 H 08/05/20 20:16 Pulse Ox 95 08/05/20 20:16 COVID-19 Screening Have you, or household traveled for leisure in last 14 days?: No Had IN PERSON contact w/suspected or confirmed C-19 person: No
[2020-08-05 22:04] LABS: Source Nasal/Nares
[2020-08-05] MEDS: chlordiazePOXIDE 25 MG CAP PO (22:30)
[2020-08-05] MEDS: Pantoprazole 40 MG VIAL IVP (22:30)
[2020-08-05] MEDS: LORazepam 1 MG TAB PO/SL (22:45)
[2020-08-05] MEDS: MAGNESIUM SULFATE 8.12 MEQ, MULTIVITAMIN 10 ML, THIAMINE 100 MG, FOLIC ACID 1 MG in Nor... 168.867 MG IV (23:40)
[2020-08-05] MEDS: Normal Saline Flush 10 ML SYR IVP (23:41)
--- NOTE | 2020-08-06 | DI.MRI_ITS ---
Exam(s) MR ABDOMEN WO EXAM: MR ABDOMEN WO CLINICAL HISTORY: abdominal pain, hepatobiliary ductal dilatation TECHNIQUE: Multiplanar multisequence MRA of the Abdomen was performed. CONTRAST MATERIAL: IV Contrast: 0 mL of Dotarem contrast administered. COMPARISON: CT CT ABDOMEN PELVIS W from 06/29/[address] ABDOMEN PELVIS W from 06/29/2020 MR MR ABDOMEN WO/W from 07/01/2020 MR MR ABDOMEN WO/W from 07/01/[address] ABDOMEN PELVIS W from 08/05/2020 FINDINGS: Liver: Unremarkable. Pancreas: The previously noted fluid collection between the uncinate and SMA is no longer visualized. There is persistent dilatation of the pancreatic duct. Atrophy of the pancreatic body and tail is noted. No definite pancreatic mass is seen. Gallbladderand Bile Ducts: The gallbladder is distended measured 5.3 cm in diameter. There has been interval dilatation of the common of the extrahepatic and intrahepatic bile ducts. The common duct m easures 9 mm. There is abrupt termination in the head of the pancreas. A small mass at the ampulla cannot be excluded. Adrenals: Unremarkable. Kidneys: Unremarkable. Spleen: Unremarkable. Aorta: Unremarkable. Soft Tissues: Unremarkable. Bone: Unremarkable. Lymph Nodes: Unremarkable. IMPRESSION: 1. Extrahepatic biliary ductal dilatation and distention of the gallbladder which has developed since the prior examination from 07/01/2020. A small mass or obstructing stone near the ampulla cannot be excluded. 2. Resolution of the peripancreatic fluid collection. 3. Atrophy of the body and tail of the pancreas. 4. Stable dilatation of the pancreatic duct. DATA REPOSITORY:
[2020-08-06] MEDS: HYDROmorphone 2 MG/ML VIAL 1 MG IVP ×8 (00:44→22:54)
[2020-08-06] MEDS: Normal Saline Flush 10 ML SYR IVP ×9 (00:44→22:54)
[2020-08-06 01:26] LABS: COVID-19 PCR Negative (Negative)
[2020-08-06] MEDS: Lactated Ringers 1,000 ML 125 ML IV ×3 (05:54→22:35)
[2020-08-06] MEDS: Lidocaine 2% Jelly 11 ML SYR UR (06:57)
[2020-08-06 07:07] LABS: HCT 43.2 % (40.0-50.0); HGB 13.8 g/dL (13.5-17.5); MCH 32.5 pg (27.0-33.0); MCHC 31.9 % (32.0-36.0); MCV 101.6 fL (80-95); MPV 9.5 fL (8.0-11.0); Platelet Count 244 10^3/uL (130-400); RBC 4.25 10^6/uL (4.36-5.78); RDW 13.6 % (11.8-14.1); WBC 3.86 10^3/uL (4.4-10.8)
[2020-08-06 07:14] LABS: Anion Gap 10.2 mmol/L (3-11); BUN 3 mg/dL (7-18); CO2 21.8 mmol/L (21.0-32.0); CREATININE 0.7 mg/dL (0.70-1.30); Calcium 8.1 mg/dL (8.5-10.1); Chloride 111 mmol/L (98-107); Glucose 85 mg/dL (74-106); Potassium 4.1 mmol/L (3.5-5.1); Sodium 143 mmol/L (136-145)
[2020-08-06] MEDS: Finasteride 5 MG TAB PO (08:36)
[2020-08-06] MEDS: Tamsulosin 0.4 MG CAPCR 0.8 MG PO (08:36)
[2020-08-06] MEDS: Metoprolol 12.5 MG TAB 50 MG PO ×2 (08:36→20:53)
[2020-08-06] MEDS: Apixaban 5 MG TAB PO (08:36)
[2020-08-06] MEDS: chlordiazePOXIDE 25 MG CAP PO ×3 (08:37→20:53)
[2020-08-06] MEDS: Multivitamin TAB 1 TAB PO (08:37)
[2020-08-06] MEDS: Thiamine 100 MG TAB PO (08:37)
[2020-08-06] MEDS: Nicotine 21 MG/24 HR PATCH TD (08:53)
--- NOTE | 2020-08-06 11:36 | PDOC.CMIN ---
- If Service Date Differs Date of service: 08/06/20 Time of Service: 11:36 Care Management Initial Assess REASON FOR HOSPITALIZATION:: Chronic abdominal pain PAST MEDICAL HISTORY/PAST SURGICAL HISTORY:: Medical History. Acute UTI. Alcohol withdrawal. Alcoholic gastritis. Alcoholism /alcohol abuse. ARDS (adult respiratory distress syndrome). Aspiration pneumonia. COVID-19 ruled out by laboratory testing. Enterocolitis. Fever. Ground glass opacity present on imaging of lung. HTN (hypertension). Hx of hyperlipidemia. Hypokalemia. Hypomagnesemia. Myocardial infarction. x 2. Pancreatitis. Pancreatitis, chronic. Pneumonia. Presence of pancreatic duct stent (~01/2018). [place] Retention of urine. Septal myocardial infarction (01/18/20). probably old, [facility] records. Urinary retention. Surgical History. S/P ERCP (~01/2018). [place] PREVIOUS FUNCTIONAL STATUS/SOCIAL/FAMILY SUPPORTS:: Guillermo, (Juan Jose' preferred nickname) lives alone in [place]. He is unemployed and spends his time playing his guitar and watching television. 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 CURRENT FUNCTIONAL STATUS:: Guillermo was lying in bed when CM met with him. He reported that his days are filled with the same thing over and over again- waking up, watching TV, not having much to eat or drink, and sleeping. He stated that he hasn't been in contact with his men's swim coach since his last admission, and asked for CM to reach out, as he would accept a visit during this admission. CM will continue to follow. ADVANCE DIRECTIVES:: None on file. CM will offer forms. Has patient been provided with info about the portal/API?: Yes Did the patient sign up for the portal?: No CODE STATUS:: Full Code INSURANCE COVERAGE / FINANCIAL ISSUES:: TEE CURRENT HOME/COMMUNITY SERVICES/EQUIPMENT:: Guillermo has a cane, and communicates with a men's swim coach from [facility]. PRIMARY CARE PHYSICIAN:: Benjamin Bustillos POTENTIAL DISCHARGE NEEDS:: Follow up with PCP, men's swim coach, and plan of care PATIENT/FAMILY EDUCATION NEEDS:: Review of discharge instructions, medications, limitations, follow up plan, Ask Me Three ANTICIPATED BARRIERS TO DISCHARGE:: None identified at this time. TRANSPORTATION:: [facility] private vehicle PLAN:: Guillermo will likely be discharged home with no new services, although he did state that he would be open to home health. He will follow up with his PCP and discharge plan of care. Guillermo will likely transport via [facility] coordinated by CM. CM will continue to support Guillermo and assess for discharge planning needs. Readmission - Within the Past 30 Days Yes or No: Y - Date of First Admission Date of 1st Admission: 07/15/20 - Date of this Admission Date of Admission: 08/06/20 This admission was: Through ED - Office Visit Since 1st Admission Have you seen your PCP in the office since discharge?: No Date of PCP Appointment: 08/01/20 Had an appointment Been Scheduled?: Yes - I. Interview patient and/or Family Difficulty reaching your doctor or getting an office appt?: Yes Have you had trouble purchasing/ or taking medication?: No Have you had trouble with getting meals at home?: Yes Describe your typical meals since you have been home: cereal, flour and water mixed together and cooked on the stove. Did you feel ready for discharge when you left the last time: No Why did you not feel ready for discharge?: Guillermo stated that he had only had one meal and was discharged. His ride fell through and he walked home, per report. Were services received that you thought were set up on disch: No If patient did not receive services, were there orders at: No Reason there were no orders at discharge: None indicated. Did you call your physician beore you came to the ED?: No - ED visits How many ED visits in the past 12 months: 20 - Assessment for Readmission Summary of readmission circumstances, based upon interviews: Guillermo stated that he doesn't have enough money or support for food, although he lives next to the food pantry in [place], and he reported that he gets a lot of food from that resource. He stated that the only thing that keeps him out of pain is IV dialodid, which he receives at [facility]. He stated that his life is the same thing every day, waking up, watching TV, not eating or drinking much, and sleeping. He reported that [facility] gives him a break from his life, and can control his pain. He reported that on his last admission, he only had one meal before he was discharged, and he did not feel ready.
--- NOTE | 2020-08-06 11:37 | W.PM.PROGNOT ---
Date of Service Date of service: 08/06/20 Time of Service: 11:37 Assessment and Plan Assessment and plan (1) Acute on chronic pancreatitis: Status: Acute Assessment and plan: awaiting MRCP continue NPO, pain management, IV hydration, antiemetics aggressive pulmonary toileting encourage ambulation (2) Alcoholism, chronic: Status: Chronic Assessment and plan: on scheduled librium continue ciwa protocol thiamine daily (3) Alcoholic gastritis: Status: Suspected Assessment and plan: continue PPI Qualifiers: Chronicity: chronic Gastritis bleeding: presence of bleeding unspecified Qualified Code(s): K29.20 - Alcoholic gastritis without bleeding (4) Deep vein thrombosis (DVT) of right upper extremity: Status: Chronic Assessment and plan: anticoagulated on Eliquis diagnosed in December 2019 at [facility], reimaged here in June, see report below: will defer course of anticoagulation and re-imaging to pcp. right Upper extremity ultrasound done 07/01/2020: COMPARISON: None. This patient apparently had an outside right upper extremity DVT study performed December 2019 at [facility] which was apparent positive for venous thrombosis in the right upper extremity. FINDINGS: Basilic vein: There is echogenic thrombus in the distal basilic vein. This does not appear to be completely occlusive. Brachial vein(s):Patent. Normal color flow. Normal compression and augmentation properties. Cephalic vein:Thrombus within the distal cephalic vein over a distance of 8 cm. This does not compress. Intraluminal catheter seen in this region. Axillary vein: Patent. Normal color flow. Normal compression and augmentation properties. Visualized subclavian vein: Patent. No obvious intraluminal thrombus. IMPRESSION: 1. Positive study for intraluminal thrombus in the right upper extremity. 2. There is intraluminal thrombus with in the distal right basilar vein which is not appear occlusive and is echogenic and may be nonacute. 3. there is occlusive intraluminal thrombus within the right cephalic vein, this over a distance of 8 cm. This is at the upper arm level. Qualifiers: Affected thrombotic vein of extremity: unspecified vein of extremity Chronicity: chronic Qualified Code(s): I82.721 - Chronic embolism and thrombosis of deep veins of right upper extremity (5) Urinary retention: Status: Acute Assessment and plan: required sharp placement last night continue finestride and flomax consider voiding trial tomorrow. (6) DVT prophylaxis: Status: Acute Assessment and plan: fully anticoagulated on eliquis for RUE DVT (7) Discharge planning issues: Status: Acute Assessment and plan: home when medically stable. discharge discussed with Dr Duvall Subjective Subjective Patient reports: still having pain, no bowel movement, nausea and afebrile; denies vomiting Interval history since last seen: required straight cath last night. Exam Const General: cooperative and ill appearing chronically Nutritional Appearance: average body habitus Orientation: alert, awake and oriented x3 HENMT Head: normal to inspection, normocephalic and atraumatic Mouth: oral mucosae normal Resp Effort & Inspection: normal respiratory effort Cardio Rate: regular rate Rhythm: regular rhythm GI Inspection: distended Palpation: firm Auscultation: hypoactive bowel sounds Skin General skin exam: other (extensive acne, ) Lesions: lesion noted (face) Neuro General: patient alert, patient awake and moves all extremities Objective Last Vital Signs Temp 36.2 C L 08/05/20 22:10 Pulse 74 08/05/20 22:10 Resp 18 08/05/20 22:10 BP 160/86 H 08/05/20 22:10 Pulse Ox 100 08/05/20 22:10 Laboratory Results - last 24 hr 08/05/20 08/05/20 08/05/20 16:50 17:04 17:04 WBC RBC Hgb Hct MCV MCH MCHC RDW Plt Count MPV Immature Gran % Neutrophils % Lymphocytes % Monocytes % Eosinophils % Basophils % Nucleated RBC % Absolute Neutrophils Absolute Lymphocytes Absolute Monocytes Absolute Eosinophils Absolute Basophils VBG Lactate 3.8 H* Sodium 143 Potassium 3.7 Chloride 107 Carbon Dioxide 24.6 Anion Gap 11.4 H BUN 4 L Creatinine 0.7 Estimated GFR/1.73 m2 >= 60.00 Glucose 103 Calcium 8.2 L Total Bilirubin 0.3 AST 29 ALT 22 Alkaline Phosphatase 112 Total Protein 7.7 Albumin 3.2 L Lipase 270 Urine Color Yellow Urine Clarity Clear Urine pH 6.0 Ur Specific [place] 1.015 Urine Protein Negative Urine Ketones Negative Urine Blood Negative Urine Nitrite Negative Urine Bilirubin Negative Urine Urobilinogen 0.2 Ur Leukocyte Esterase Negative Urine Glucose Negative Ethyl Alcohol 130.0 COVID-19 Source SARS-CoV-2 (PCR) 08/05/20 08/05/20 08/05/20 17:04 20:30 22:00 WBC 3.60 L RBC 4.68 Hgb 15.3 Hct 47.4 MCV 101.3 H MCH 32.7 MCHC 32.3 RDW 13.5 Plt Count 278 MPV 9.5 Immature Gran % 0.3 Neutrophils % 34.0 Lymphocytes % 54.4 Monocytes % 8.6 Eosinophils % 1.9 Basophils % 0.8 Nucleated RBC % 0 Absolute Neutrophils 1.22 Absolute Lymphocytes 1.96 Absolute Monocytes 0.31 Absolute Eosinophils 0.07 Absolute Basophils 0.03 VBG Lactate 2.6 H* Sodium Potassium Chloride Carbon Dioxide Anion Gap BUN Creatinine Estimated GFR/1.73 m2 Glucose Calcium Total Bilirubin AST ALT Alkaline Phosphatase Total Protein Albumin Lipase Urine Color Urine Clarity Urine pH Ur Specific [place] Urine Protein Urine Ketones Urine Blood Urine Nitrite Urine Bilirubin Urine Urobilinogen Ur Leukocyte Esterase Urine Glucose Ethyl Alcohol COVID-19 Source Nasal/nares SARS-CoV-2 (PCR) Negative 08/06/20 08/06/20 06:45 06:45 WBC 3.86 L RBC 4.25 L Hgb 13.8 Hct 43.2 MCV 101.6 H MCH 32.5 MCHC 31.9 L RDW 13.6 Plt Count 244 MPV 9.5 Immature Gran % Neutrophils % Lymphocytes % Monocytes % Eosinophils % Basophils % Nucleated RBC % Absolute Neutrophils Absolute Lymphocytes Absolute Monocytes Absolute Eosinophils Absolute Basophils VBG Lactate Sodium 143 Potassium 4.1 Chloride 111 H Carbon Dioxide 21.8 Anion Gap 10.2 BUN 3 L Creatinine 0.7 Estimated GFR/1.73 m2 >= 60.00 Glucose 85 Calcium 8.1 L Total Bilirubin AST ALT Alkaline Phosphatase Total Protein Albumin Lipase Urine Color Urine Clarity Urine pH Ur Specific [place] Urine Protein Urine Ketones Urine Blood Urine Nitrite Urine Bilirubin Urine Urobilinogen Ur Leukocyte Esterase Urine Glucose Ethyl Alcohol COVID-19 Source SARS-CoV-2 (PCR)
--- NOTE | 2020-08-06 13:00 | W.SURGCON ---
Date of service: 08/06/20 Time of Service: 12:30 Assessment and Plan Assessment and plan (1) Common bile duct dilation: Status: Acute Assessment and plan: He has new dilitation of the common bile duct to 9 mm, as well as dilatation of the other extrahepatic biliary ducts. There is dilatation of the pancreatic duct which abruptly ends of the pancreatic head, possibly suggestive of a mass. No stone seen on MRCP. I suspect that his biliary dilatation is due to sphincter of Oddi dysfunction or stricturing secondary to repeated pancreatitis. He has a history of chronic pancreatitis. His changes in the pancreatic ducts are suspicious for possible pancreatic cancer. I recommend ERCP Thank you for this consultation History of Present Illness History of Present Illness Chief Complaint: abdominal pain, N/V Narrative: This is a very pleasant 60-year-old gentleman who comes in with a 3-day history of worsening abdominal pain nausea and vomiting. He reports that he has been alcoholic his entire life and has had chronic pancreatitis for last 2-1/2 years, approximately. He reports that typically when he tries to eat anything he has nausea and vomiting. He reports that he always has abdominal pain radiating to his back and sometimes down into his right leg. Eating makes the pain worse. Only Dilaudid seems to make the pain better. He reports that he came to the hospital for some relief from the pain. He denies any fever or chills, diarrhea or constipation. Review of Systems All systems reviewed & are unremarkable except as noted in HPI and below PFSH Medical History Acute UTI Alcohol withdrawal Alcoholic gastritis Alcoholism /alcohol abuse ARDS (adult respiratory distress syndrome) Aspiration pneumonia COVID-19 ruled out by laboratory testing Enterocolitis Fever Ground glass opacity present on imaging of lung HTN (hypertension) Hx of hyperlipidemia Hypokalemia Hypomagnesemia Myocardial infarction x 2 Pancreatitis Pancreatitis, chronic Pneumonia Presence of pancreatic duct stent (~01/2018) [facility]. Retention of urine Septal myocardial infarction (01/18/20) probably old, [facility] records Urinary retention Surgical History S/P ERCP (~01/2018) [facility]. Family History Mother Alcohol abuse Father Alcohol abuse Social History Smoking/Tobacco Use Status: Current every day Tobacco Type: cigarettes Smoking packs per day: 1 Smoking cigarettes per day: 20.0 Smoking risk assessment performed?: Yes Alcohol Intake: current Alcohol Intake frequency: 3 or more drinks per day Alcohol type: beer Drug use: Occasionally Substance use type: marijuana Housing: apartment Do you feel safe at home: Yes Do you feel safe in your relationship?: Yes Exam Const General: cooperative, healthy appearing and comfortable HENMT Head: normal to inspection, normocephalic and atraumatic Eyes General: appearance normal, both eyes and all related structures Pupils: PERRL Neck Neck: normal visual inspection and full ROM Resp Effort & Inspection: normal respiratory effort, able to speak in complete sentences and no tracheal deviation Cardio Jugular venous pressure: no JVD Palpation: normal PMI Rate: regular rate Rhythm: regular rhythm GI Inspection: normal to inspection, non-distended and other (soft, minimal tenderness to palpation over epigastrium) Back/Spine/Pelvis Back: no CVA tenderness and No ecchymosis Skin General skin exam: no rashes or lesions noted Lesions: no lesions Neuro General: patient alert, patient awake and patient oriented x3 Extrem General: normal to inspection and full ROM Psych Appearance: grossly normal Mental Status: mental status grossly normal Results Last Vital Signs Temp 96.8 F L 08/06/20 15:38 Pulse 66 08/06/20 15:38 Resp 18 08/06/20 15:38 BP 160/87 H 08/06/20 15:38 Pulse Ox 97 08/06/20 15:38 Labs Result diagrams: 08/06/20 06:45 08/06/20 06:45 Labs: Laboratory Results - last 24 hr 08/05/20 08/05/20 08/06/20 20:30 22:00 06:45 WBC RBC Hgb Hct MCV MCH MCHC RDW Plt Count MPV VBG Lactate 2.6 H* Sodium 143 Potassium 4.1 Chloride 111 H Carbon Dioxide 21.8 Anion Gap 10.2 BUN 3 L Creatinine 0.7 Estimated GFR/1.73 m2 >= 60.00 Glucose 85 Calcium 8.1 L COVID-19 Source Nasal/nares SARS-CoV-2 (PCR) Negative 08/06/20 06:45 WBC 3.86 L RBC 4.25 L Hgb 13.8 Hct 43.2 MCV 101.6 H MCH 32.5 MCHC 31.9 L RDW 13.6 Plt Count 244 MPV 9.5 VBG Lactate Sodium Potassium Chloride Carbon Dioxide Anion Gap BUN Creatinine Estimated GFR/1.73 m2 Glucose Calcium COVID-19 Source SARS-CoV-2 (PCR)
[2020-08-06 15:38] VITALS: BP 160/87; PULSE 66; RESP 18; TEMP 36; O2SAT 97
--- NOTE | 2020-08-06 17:42 | W.SURGCON ---
Date of service: 08/06/20 Time of Service: 17:42 [facility] Medical History Acute UTI Alcohol withdrawal Alcoholic gastritis Alcoholism /alcohol abuse ARDS (adult respiratory distress syndrome) Aspiration pneumonia COVID-19 ruled out by laboratory testing Enterocolitis Fever Ground glass opacity present on imaging of lung HTN (hypertension) Hx of hyperlipidemia Hypokalemia Hypomagnesemia Myocardial infarction x 2 Pancreatitis Pancreatitis, chronic Pneumonia Presence of pancreatic duct stent (~01/2018) [facility] Retention of urine Septal myocardial infarction (01/18/20) probably old, [facility] records Urinary retention Surgical History S/P ERCP (~01/2018) [facility] Family History Mother Alcohol abuse Father Alcohol abuse Social History Smoking/Tobacco Use Status: Current every day Tobacco Type: cigarettes Smoking packs per day: 1 Smoking cigarettes per day: 20.0 Smoking risk assessment performed?: Yes Alcohol Intake: current Alcohol Intake frequency: 3 or more drinks per day Alcohol type: beer Drug use: Occasionally Substance use type: marijuana Housing: apartment Do you feel safe at home: Yes Do you feel safe in your relationship?: Yes Results Last Vital Signs Temp 36.0 C L 08/06/20 15:38 Pulse 66 08/06/20 15:38 Resp 18 08/06/20 15:38 BP 160/87 H 08/06/20 15:38 Pulse Ox 97 08/06/20 15:38 Labs Result diagrams: 08/06/20 06:45 08/06/20 06:45 Labs: Laboratory Results - last 24 hr 08/05/20 08/05/20 08/06/20 20:30 22:00 06:45 WBC RBC Hgb Hct MCV MCH MCHC RDW Plt Count MPV VBG Lactate 2.6 H* Sodium 143 Potassium 4.1 Chloride 111 H Carbon Dioxide 21.8 Anion Gap 10.2 BUN 3 L Creatinine 0.7 Estimated GFR/1.73 m2 >= 60.00 Glucose 85 Calcium 8.1 L COVID-19 Source Nasal/nares SARS-CoV-2 (PCR) Negative 08/06/20 06:45 WBC 3.86 L RBC 4.25 L Hgb 13.8 Hct 43.2 MCV 101.6 H MCH 32.5 MCHC 31.9 L RDW 13.6 Plt Count 244 MPV 9.5 VBG Lactate Sodium Potassium Chloride Carbon Dioxide Anion Gap BUN Creatinine Estimated GFR/1.73 m2 Glucose Calcium COVID-19 Source SARS-CoV-2 (PCR)
[2020-08-06 20:48] VITALS: BP 159/92; PULSE 63; RESP 12; TEMP 36; O2SAT 96
[2020-08-06] MEDS: Pantoprazole 40 MG VIAL IVP (22:36)
[2020-08-06 23:47] VITALS: BP 158/96; PULSE 69; RESP 18; TEMP 36.4; O2SAT 100
[2020-08-07] MEDS: Lactated Ringers 1,000 ML 125 ML IV (06:36)
[2020-08-07] MEDS: Ondansetron 4 MG/2 ML VIAL IVP (06:36)
[2020-08-07] MEDS: HYDROmorphone 2 MG/ML VIAL 1 MG IVP ×5 (06:36→20:35)
[2020-08-07] MEDS: Normal Saline Flush 10 ML SYR IVP ×4 (06:37→20:35)
[2020-08-07 07:15] VITALS: BP 120/76; PULSE 76; RESP 20; TEMP 36.5; O2SAT 94
[2020-08-07 07:21] LABS: Abs Immature Grans 0.01 10^3/uL (0.0-0.06); Absolute Basophil Count 0.04 10^3/uL (0.0-0.2); Absolute Eosinophil Count 0.19 10^3/uL (0.0-0.7); Absolute Lymphocyte Count 1.48 10^3/uL (1.2-3.4); Absolute Monocyte Count 0.46 10^3/uL (0.1-0.8); Absolute Neutrophil Count 2.54 10^3/uL (1.2-6.7); Basophils % 0.8; HCT 42.6 % (40.0-50.0); HGB 13.9 g/dL (13.5-17.5); Immature Grans % 0.2; Lymphocytes % 31.4; MCHC 32.6 % (32.0-36.0); MCV 97.9 fL (80-95); MPV 11.1 fL (8.0-11.0); Monocytes % 9.7; Neutrophils % 53.9; Nucleated RBC 0 %; Platelet Count 145 10^3/uL (130-400); RBC 4.35 10^6/uL (4.36-5.78); RDW 12.7 % (11.8-14.1); RDW-SD 45.8 fL; WBC 4.72 10^3/uL (4.4-10.8)
[2020-08-07 07:45] LABS: ALT 27 U/L (16-63); AST 33 U/L (15-37); Albumin 2.5 g/dL (3.4-5.0); Alkaline Phosphatase 103 U/L (46-116); Anion Gap 10.3 mmol/L (3-11); BUN 5 mg/dL (7-18); Bilirubin, Total 0.8 mg/dL (0.2-1.0); CO2 24.7 mmol/L (21.0-32.0); CREATININE 0.7 mg/dL (0.70-1.30); Calcium 8.2 mg/dL (8.5-10.1); Chloride 106 mmol/L (98-107); Glucose 67 mg/dL (74-106); Potassium 3.8 mmol/L (3.5-5.1); Sodium 141 mmol/L (136-145); Total Protein 6.1 g/dL (6.4-8.2)
[2020-08-07] MEDS: Tamsulosin 0.4 MG CAPCR 0.8 MG PO (08:03)
[2020-08-07] MEDS: Nicotine 21 MG/24 HR PATCH TD (08:03)
[2020-08-07] MEDS: Thiamine 100 MG TAB PO (08:04)
[2020-08-07] MEDS: Finasteride 5 MG TAB PO (08:04)
[2020-08-07] MEDS: Multivitamin TAB 1 TAB PO (08:04)
[2020-08-07] MEDS: chlordiazePOXIDE 25 MG CAP PO ×3 (08:04→20:34)
[2020-08-07] MEDS: Patch Removal 1 EACH TP (08:33)
[2020-08-07] MEDS: Metoprolol 50 MG TAB PO ×2 (09:07→20:34)
--- NOTE | 2020-08-07 09:17 | W.PM.PROGNOT ---
Date of Service Date of service: 08/07/20 Time of Service: 09:17 Assessment and Plan Assessment and plan (1) Acute on chronic pancreatitis: Status: Acute Assessment and plan: MRCP results reviewed with surgery, their recommendations are for ERCP. case was discussed with Dr Walker at [facility] who does recommend endoscopic US and feels at this point he can safely do as an outpatient. trial clear liquids, taper pain management, IV hydration, antiemetics aggressive pulmonary toileting encourage ambulation (2) Alcoholism, chronic: Status: Chronic Assessment and plan: on scheduled librium continue ciwa protocol, not scoring overnight thiamine daily (3) Alcoholic gastritis: Status: Suspected Assessment and plan: continue PPI Qualifiers: Chronicity: chronic Gastritis bleeding: presence of bleeding unspecified Qualified Code(s): K29.20 - Alcoholic gastritis without bleeding (4) Deep vein thrombosis (DVT) of right upper extremity: Status: Chronic Assessment and plan: anticoagulated on Eliquis but was placed on hold for possible procedure. diagnosed in December 2019 at [facility], reimaged here in June, see report below: will defer course of anticoagulation and re-imaging to pcp. right Upper extremity ultrasound done 07/01/2020: COMPARISON: None. This patient apparently had an outside right upper extremity DVT study performed December 2019 at [facility] which was apparent positive for venous thrombosis in the right upper extremity. FINDINGS: Basilic vein: There is echogenic thrombus in the distal basilic vein. This does not appear to be completely occlusive. Brachial vein(s):Patent. Normal color flow. Normal compression and augmentation properties. Cephalic vein:Thrombus within the distal cephalic vein over a distance of 8 cm. This does not compress. Intraluminal catheter seen in this region. Axillary vein: Patent. Normal color flow. Normal compression and augmentation properties. Visualized subclavian vein: Patent. No obvious intraluminal thrombus. IMPRESSION: 1. Positive study for intraluminal thrombus in the right upper extremity. 2. There is intraluminal thrombus with in the distal right basilar vein which is not appear occlusive and is echogenic and may be nonacute. 3. there is occlusive intraluminal thrombus within the right cephalic vein, this over a distance of 8 cm. This is at the upper arm level. Qualifiers: Affected thrombotic vein of extremity: unspecified vein of extremity Chronicity: chronic Qualified Code(s): I82.721 - Chronic embolism and thrombosis of deep veins of right upper extremity (5) Urinary retention: Status: Acute Assessment and plan: required sharp placement last night continue finestride and flomax consider voiding trial tomorrow. (6) DVT prophylaxis: Status: Acute Assessment and plan: fully anticoagulated on eliquis for RUE DVT (7) Discharge planning issues: Status: Acute Assessment and plan: home when medically stable. discharge discussed with Dr Duvall Subjective Subjective Patient reports: afebrile Interval history since last seen: not scoring on ciwa overnight, hemodynamically stable. reporting pain at 8-10/10 still requiring IV dilaudid. has been tolerating ice chips with no increased pain, wants to try clear liquids. Exam Const General: cooperative and ill appearing chronically Nutritional Appearance: average body habitus Orientation: alert, awake and oriented x3 HENMT Head: normal to inspection, normocephalic and atraumatic Mouth: oral mucosae normal Resp Effort & Inspection: normal respiratory effort Cardio Rate: regular rate Rhythm: regular rhythm GI Inspection: distended Palpation: firm Auscultation: hypoactive bowel sounds Skin General skin exam: other (extensive acne, ) Lesions: lesion noted (face) Neuro General: patient alert, patient awake and moves all extremities Objective Last Vital Signs Temp 36.5 C 08/07/20 07:15 Pulse 76 08/07/20 07:15 Resp 20 08/07/20 07:15 BP 120/76 08/07/20 07:15 Pulse Ox 94 08/07/20 07:15 Laboratory Results - last 24 hr 08/07/20 08/07/20 07:02 07:02 WBC 4.72 RBC 4.35 L Hgb 13.9 Hct 42.6 MCV 97.9 H MCH 32.0 MCHC 32.6 RDW 12.7 Plt Count 145 MPV 11.1 H Immature Gran % 0.2 Neutrophils % 53.9 Lymphocytes % 31.4 Monocytes % 9.7 Eosinophils % 4.0 Basophils % 0.8 Nucleated RBC % 0 Absolute Neutrophils 2.54 Absolute Lymphocytes 1.48 Absolute Monocytes 0.46 Absolute Eosinophils 0.19 Absolute Basophils 0.04 Sodium 141 Potassium 3.8 Chloride 106 Carbon Dioxide 24.7 Anion Gap 10.3 BUN 5 L Creatinine 0.7 Estimated GFR/1.73 m2 >= 60.00 Glucose 67 L Calcium 8.2 L Total Bilirubin 0.8 AST 33 ALT 27 Alkaline Phosphatase 103 Total Protein 6.1 L Albumin 2.5 L
[2020-08-07] MEDS: DEXTROSE 5%-0.45% SALINE 1,000 ML 125 ML IV ×2 (10:45→19:18)
[2020-08-07 15:20] VITALS: BP 138/78; PULSE 56; RESP 17; TEMP 36.6; O2SAT 99
--- NOTE | 2020-08-07 18:31 | CMPROGNOTE_ITS ---
- If Service Date Differs Date of service: 08/07/20 Time of Service: 18:31 Care Management Progress Note S/O: Guillermo was sleeping when CM attempted to meet with him. CM contacted the Pitting Machine Operator, Bhavya, who was elementary special education teacher, and visited with Guillermo today. Per report, MRCP results were reviewed by the surgical team today, who recommends an ERCP. [facility] was consulted, and feels that this can be completed out patient. Guillermo has difficulty following up out patient in the community, which suggests that this would be a hardship for him. Per report, his pain remains at 8/10, and he continues to require IV dilaudid. If his pain is controlled today, his diet may be increased to clear liquids. CM will continue to follow. A: Juan Jose Li is a 60 year old male admitted to [facility] on 08/05/20 with abdominal pain. P: Guillermo will likely be discharged home with no new services, although he did state that he would be open to home health. He will follow up with his PCP and discharge plan of care. Guillermo will likely transport via [facility] coordinated by MARY ANN. CM will continue to support Guillermo and assess for discharge planning needs.
[2020-08-07] MEDS: Ketorolac 15 MG/ML VIAL IVP (20:35)
[2020-08-07 23:48] VITALS: BP 141/72; PULSE 59; RESP 17; TEMP 36.5; O2SAT 94
[2020-08-08] MEDS: Normal Saline Flush 10 ML SYR IVP ×4 (00:18→21:39)
[2020-08-08] MEDS: Pantoprazole 40 MG VIAL IVP ×2 (00:20→21:39)
[2020-08-08] MEDS: DEXTROSE 5%-0.45% SALINE 1,000 ML 125 ML IV ×2 (02:52→10:38)
[2020-08-08] MEDS: HYDROmorphone 2 MG/ML VIAL 1 MG IVP ×4 (03:02→21:38)
[2020-08-08] MEDS: Ketorolac 15 MG/ML VIAL IVP ×2 (06:45→13:04)
[2020-08-08 07:27] LABS: Abs Immature Grans 0.01 10^3/uL (0.0-0.06); Absolute Basophil Count 0.04 10^3/uL (0.0-0.2); Absolute Eosinophil Count 0.22 10^3/uL (0.0-0.7); Absolute Lymphocyte Count 1.18 10^3/uL (1.2-3.4); Absolute Neutrophil Count 1.56 10^3/uL (1.2-6.7); Basophils % 1.2; Eosinophils % 6.5; HCT 39.1 % (40.0-50.0); HGB 13.1 g/dL (13.5-17.5); Immature Grans % 0.3; Lymphocytes % 34.6; MCH 32.4 pg (27.0-33.0); MCHC 33.5 % (32.0-36.0); MCV 96.8 fL (80-95); MPV 10.2 fL (8.0-11.0); Monocytes % 11.7; Neutrophils % 45.7; Nucleated RBC 0 %; Platelet Count 209 10^3/uL (130-400); RBC 4.04 10^6/uL (4.36-5.78); RDW 12.7 % (11.8-14.1); RDW-SD 45.9 fL; WBC 3.41 10^3/uL (4.4-10.8)
[2020-08-08 07:42] LABS: ALT 17 U/L (16-63); AST 22 U/L (15-37); Albumin 2.1 g/dL (3.4-5.0); Alkaline Phosphatase 78 U/L (46-116); Anion Gap 7.1 mmol/L (3-11); BUN 3 mg/dL (7-18); Bilirubin, Total 0.5 mg/dL (0.2-1.0); CO2 26.9 mmol/L (21.0-32.0); CREATININE 0.7 mg/dL (0.70-1.30); Calcium 7.7 mg/dL (8.5-10.1); Chloride 106 mmol/L (98-107); Glucose 154 mg/dL (74-106); Potassium 3.4 mmol/L (3.5-5.1); Sodium 140 mmol/L (136-145); Total Protein 5.4 g/dL (6.4-8.2)
[2020-08-08 08:13] VITALS: BP 148/80; PULSE 61; RESP 18; TEMP 36.7; O2SAT 100
[2020-08-08] MEDS: Nicotine 21 MG/24 HR PATCH TD (10:11)
[2020-08-08] MEDS: Finasteride 5 MG TAB PO (10:12)
[2020-08-08] MEDS: chlordiazePOXIDE 25 MG CAP PO ×2 (10:12→21:38)
[2020-08-08] MEDS: Tamsulosin 0.4 MG CAPCR 0.8 MG PO (10:12)
[2020-08-08] MEDS: Thiamine 100 MG TAB PO (10:12)
[2020-08-08] MEDS: Metoprolol 50 MG TAB PO ×2 (10:12→21:37)
[2020-08-08] MEDS: Patch Removal 1 EACH TP (10:13)
[2020-08-08] MEDS: Multivitamin TAB 1 TAB PO (10:16)
--- NOTE | 2020-08-08 14:33 | W.PM.PROGNOT ---
Date of Service Date of service: 08/08/20 Time of Service: 14:33 Assessment and Plan Assessment and plan (1) Acute on chronic pancreatitis: Status: Acute Assessment and plan: MRCP results reviewed with surgery, their recommendations are for ERCP. case was discussed with Dr Walker at [facility] who does recommend endoscopic US and feels at this point he can safely do as an outpatient. trial clear liquids, taper pain management, IV hydration, antiemetics aggressive pulmonary toileting encourage ambulation (2) Alcoholism, chronic: Status: Chronic Assessment and plan: on scheduled librium continue ciwa protocol, not scoring overnight thiamine daily (3) Alcoholic gastritis: Status: Suspected Assessment and plan: continue PPI Qualifiers: Chronicity: chronic Gastritis bleeding: presence of bleeding unspecified Qualified Code(s): K29.20 - Alcoholic gastritis without bleeding (4) Deep vein thrombosis (DVT) of right upper extremity: Status: Chronic Assessment and plan: anticoagulated on Eliquis but was placed on hold for possible procedure. diagnosed in December 2019 at [facility], reimaged here in June, see report below: will defer course of anticoagulation and re-imaging to pcp. right Upper extremity ultrasound done 07/01/2020: COMPARISON: None. This patient apparently had an outside right upper extremity DVT study performed December 2019 at [facility] which was apparent positive for venous thrombosis in the right upper extremity. FINDINGS: Basilic vein: There is echogenic thrombus in the distal basilic vein. This does not appear to be completely occlusive. Brachial vein(s):Patent. Normal color flow. Normal compression and augmentation properties. Cephalic vein:Thrombus within the distal cephalic vein over a distance of 8 cm. This does not compress. Intraluminal catheter seen in this region. Axillary vein: Patent. Normal color flow. Normal compression and augmentation properties. Visualized subclavian vein: Patent. No obvious intraluminal thrombus. IMPRESSION: 1. Positive study for intraluminal thrombus in the right upper extremity. 2. There is intraluminal thrombus with in the distal right basilar vein which is not appear occlusive and is echogenic and may be nonacute. 3. there is occlusive intraluminal thrombus within the right cephalic vein, this over a distance of 8 cm. This is at the upper arm level. Qualifiers: Affected thrombotic vein of extremity: unspecified vein of extremity Chronicity: chronic Qualified Code(s): I82.721 - Chronic embolism and thrombosis of deep veins of right upper extremity (5) Urinary retention: Status: Chronic Assessment and plan: required sharp placement last night continue finestride and flomax consider voiding trial tomorrow. (6) DVT prophylaxis: Status: Acute Assessment and plan: fully anticoagulated on eliquis for RUE DVT (7) Discharge planning issues: Status: Acute Assessment and plan: home when medically stable. discharge discussed with Dr Duvall Subjective Subjective Patient reports: no new complaints, tolerating liquids well and afebrile Exam Const General: cooperative and ill appearing chronically Nutritional Appearance: average body habitus Orientation: alert, awake and oriented x3 HENMT Head: normal to inspection, normocephalic and atraumatic Mouth: oral mucosae normal Resp Effort & Inspection: normal respiratory effort Cardio Rate: regular rate Rhythm: regular rhythm GI Inspection: distended Palpation: firm Auscultation: hypoactive bowel sounds Skin General skin exam: other (extensive acne, ) Lesions: lesion noted (face) Neuro General: patient alert, patient awake and moves all extremities Objective Last Vital Signs Temp 36.7 C 08/08/20 08:13 Pulse 61 08/08/20 08:13 Resp 18 08/08/20 08:13 BP 148/80 H 08/08/20 08:13 Pulse Ox 100 08/08/20 08:13 Laboratory Results - last 24 hr 08/08/20 08/08/20 06:29 06:29 WBC 3.41 L RBC 4.04 L Hgb 13.1 L Hct 39.1 L MCV 96.8 H MCH 32.4 MCHC 33.5 RDW 12.7 Plt Count 209 MPV 10.2 Immature Gran % 0.3 Neutrophils % 45.7 Lymphocytes % 34.6 Monocytes % 11.7 Eosinophils % 6.5 Basophils % 1.2 Nucleated RBC % 0 Absolute Neutrophils 1.56 Absolute Lymphocytes 1.18 L Absolute Monocytes 0.40 Absolute Eosinophils 0.22 Absolute Basophils 0.04 Sodium 140 Potassium 3.4 L Chloride 106 Carbon Dioxide 26.9 Anion Gap 7.1 BUN 3 L Creatinine 0.7 Estimated GFR/1.73 m2 >= 60.00 Glucose 154 H D Calcium 7.7 L Total Bilirubin 0.5 AST 22 ALT 17 Alkaline Phosphatase 78 Total Protein 5.4 L Albumin 2.1 L
--- NOTE | 2020-08-08 15:02 | CMPROGNOTE_ITS ---
Care Management Progress Note S/O: Juan Jose Bowden was sitting up in bed when CM met with him. He was pleasant in interaction and agreeable to new referrals and service attachment. CM will complete referrals and continue to follow. Per provider, anticipate Kal will discharge home tomorrow. CM generated referrals for follow up, specifically [facility], [facility] and [facility]. CM discussed Kal's case in depth with Hafsa and Kinza at [facility]; Kinza met with Kal and reviewed community based services including [employer] Day program, food options including [employer] food card, food shelf, economic services-Kal has this in place currently. Kinza was able to determine that Kal's phone is in working order and phone number on file is accurate per patient report though currently he does not have minutes on the phone. Kinza reports [facility] will purchase minutes for Kal's phone and provide them prior to anticipated discharge tomorrow. Kinza completed releases with Kal for further follow up. She reports he is on SSI with income stated around $800/mth. She shares that Kal stated he does pay his rent and utilities on time. Please refer to her note for further details. P: Referrals: [facility], [facility], [facility], [facility], [facility] to provide minutes for phone to support service connection. Attempts will be made to secure [facility] and PCP at [place] appointments with transportation coordination prior to discharge. Kal will transport via [facility] coordinated by this physician underwriter.
--- NOTE | 2020-08-08 15:02 | PDOC.CMPRO ---
Care Management Progress Note S/O: Juan Jose Bowden was sitting up in bed when CM met with him. He was pleasant in interaction and agreeable to new referrals and service attachment. CM will complete referrals and continue to follow. Per provider, anticipate Kal will discharge home tomorrow. CM generated referrals for follow up, specifically [facility], [facility] and [facility]. CM discussed Kal's case in depth with Hafsa and Kinza at [facility]; Kinza met with Kal and reviewed community based services including [employer] Day program, food options including [employer] food card, food shelf, economic services-Kal has this in place currently. Kinza was able to determine that Kal's phone is in working order and phone number on file is accurate per patient report though currently he does not have minutes on the phone. Kinza reports [facility] will purchase minutes for Kal's phone and provide them prior to anticipated discharge tomorrow. Kinza completed releases with Kal for further follow up. She reports he is on SSI with income stated around $800/mth. She shares that Kal stated he does pay his rent and utilities on time. Please refer to her note for further details. P: Referrals: [facility], [facility], [facility], [facility], [facility] to provide minutes for phone to support service connection. Attempts will be made to secure [facility] and PCP at [place] appointments with transportation coordination prior to discharge. Kal will transport via [facility] coordinated by this rfp writer.
[2020-08-08 16:00] VITALS: BP 157/87; PULSE 60; RESP 18; TEMP 36.7; O2SAT 97
[2020-08-08] MEDS: POTASSIUM CHLORIDE/D5-0.45NACL 1,000 ML 80 MEQ IV (16:38)
[2020-08-08] MEDS: Potassium Chloride 20 MEQ TABCR PO (16:38)
[2020-08-08 16:47] LABS: Magnesium 1.7 mg/dL (1.8-2.4)
[2020-08-08 20:30] VITALS: BP 160/89; PULSE 85; RESP 18; TEMP 36.7; O2SAT 97
[2020-08-08 23:45] VITALS: BP 162/84; PULSE 80; RESP 17; TEMP 36.4; O2SAT 98
[2020-08-09] MEDS: Ketorolac 15 MG/ML VIAL IVP ×3 (01:09→15:25)
[2020-08-09] MEDS: Normal Saline Flush 10 ML SYR IVP ×4 (01:10→21:24)
[2020-08-09] MEDS: POTASSIUM CHLORIDE/D5-0.45NACL 1,000 ML 80 MEQ IV ×2 (03:40→15:59)
[2020-08-09] MEDS: HYDROmorphone 2 MG/ML VIAL 1 MG IVP ×3 (06:22→21:24)
[2020-08-09 07:02] LABS: Abs Immature Grans 0.01 10^3/uL (0.0-0.06); Absolute Basophil Count 0.04 10^3/uL (0.0-0.2); Absolute Eosinophil Count 0.21 10^3/uL (0.0-0.7); Absolute Lymphocyte Count 1.41 10^3/uL (1.2-3.4); Absolute Monocyte Count 0.41 10^3/uL (0.1-0.8); Absolute Neutrophil Count 1.76 10^3/uL (1.2-6.7); Eosinophils % 5.5; HCT 41.1 % (40.0-50.0); HGB 13.6 g/dL (13.5-17.5); Immature Grans % 0.3; Lymphocytes % 36.7; MCHC 33.1 % (32.0-36.0); MCV 96.7 fL (80-95); MPV 10.5 fL (8.0-11.0); Monocytes % 10.7; Neutrophils % 45.8; Nucleated RBC 0 %; Platelet Count 213 10^3/uL (130-400); RBC 4.25 10^6/uL (4.36-5.78); RDW 12.9 % (11.8-14.1); RDW-SD 46.2 fL; WBC 3.84 10^3/uL (4.4-10.8)
[2020-08-09 07:17] LABS: ALT 17 U/L (16-63); AST 23 U/L (15-37); Albumin 2.1 g/dL (3.4-5.0); Alkaline Phosphatase 77 U/L (46-116); Anion Gap 6.4 mmol/L (3-11); BUN 1 mg/dL (7-18); Bilirubin, Total 0.4 mg/dL (0.2-1.0); CO2 25.6 mmol/L (21.0-32.0); CREATININE 0.7 mg/dL (0.70-1.30); Calcium 7.9 mg/dL (8.5-10.1); Chloride 110 mmol/L (98-107); Glucose 125 mg/dL (74-106); Potassium 4.1 mmol/L (3.5-5.1); Sodium 142 mmol/L (136-145); Total Protein 5.5 g/dL (6.4-8.2)
[2020-08-09] MEDS: Finasteride 5 MG TAB PO (08:17)
[2020-08-09] MEDS: Thiamine 100 MG TAB PO (08:17)
[2020-08-09] MEDS: chlordiazePOXIDE 25 MG CAP PO ×2 (08:17→21:25)
[2020-08-09] MEDS: Tamsulosin 0.4 MG CAPCR 0.8 MG PO (08:17)
[2020-08-09] MEDS: Multivitamin TAB 1 TAB PO (08:17)
[2020-08-09] MEDS: Metoprolol 50 MG TAB PO ×2 (08:17→21:25)
[2020-08-09] MEDS: Nicotine 21 MG/24 HR PATCH TD (08:18)
[2020-08-09 08:30] VITALS: BP 163/98; PULSE 77; RESP 18; TEMP 36.5; O2SAT 97
--- NOTE | 2020-08-09 12:10 | W.PM.PROGNOT ---
Date of Service Date of service: 08/09/20 Time of Service: 10:30 Assessment and Plan Assessment and plan (1) Acute on chronic pancreatitis: Start date: 08/09/20 Start time: 10:30 Status: Acute Assessment and plan: MRCP results reviewed with surgery, their recommendations are for ERCP. case was discussed with Dr Walker at [facility] who does recommend endoscopic US and feels at this point he can safely do as an outpatient. trial clear liquids, taper pain management, IV hydration, antiemetics aggressive pulmonary toileting encourage ambulation Today he would like to increase diet to regular and go home tomorrow. All follow up appt have been made community connections has met with patient and he now has phone for communication (2) Alcoholism, chronic: Start date: 08/09/20 Start time: 10:30 Status: Chronic Assessment and plan: on scheduled librium continue ciwa protocol, not scoring overnight thiamine daily (3) Alcoholic gastritis: Start date: 08/09/20 Start time: 10:30 Status: Suspected Assessment and plan: continue PPI Qualifiers: Chronicity: chronic Gastritis bleeding: presence of bleeding unspecified Qualified Code(s): K29.20 - Alcoholic gastritis without bleeding (4) Deep vein thrombosis (DVT) of right upper extremity: Start date: 08/09/20 Start time: 12:17 Status: Chronic Assessment and plan: anticoagulated on Eliquis but was placed on hold for possible procedure. diagnosed in December 2019 at [facility], reimaged here in June, see report below: will defer course of anticoagulation and re-imaging to pcp. right Upper extremity ultrasound done 07/01/2020: COMPARISON: None. This patient apparently had an outside right upper extremity DVT study performed December 2019 at [facility] which was apparent positive for venous thrombosis in the right upper extremity. FINDINGS: Basilic vein: There is echogenic thrombus in the distal basilic vein. This does not appear to be completely occlusive. Brachial vein(s):Patent. Normal color flow. Normal compression and augmentation properties. Cephalic vein:Thrombus within the distal cephalic vein over a distance of 8 cm. This does not compress. Intraluminal catheter seen in this region. Axillary vein: Patent. Normal color flow. Normal compression and augmentation properties. Visualized subclavian vein: Patent. No obvious intraluminal thrombus. IMPRESSION: 1. Positive study for intraluminal thrombus in the right upper extremity. 2. There is intraluminal thrombus with in the distal right basilar vein which is not appear occlusive and is echogenic and may be nonacute. 3. there is occlusive intraluminal thrombus within the right cephalic vein, this over a distance of 8 cm. This is at the upper arm level. Qualifiers: Affected thrombotic vein of extremity: unspecified vein of extremity Chronicity: chronic Qualified Code(s): I82.721 - Chronic embolism and thrombosis of deep veins of right upper extremity (5) Urinary retention: Start date: 08/09/20 Start time: 10:30 Status: Acute Assessment and plan: required sharp placement last night continue finestride and flomax consider voiding trial tomorrow. (6) Hiccups: Start date: 08/09/20 Start time: 10:30 Status: Chronic Assessment and plan: Intractable thorazine for hiccups (7) DVT prophylaxis: Start date: 08/09/20 Start time: 10:30 Status: Acute Assessment and plan: fully anticoagulated on eliquis for RUE DVT (8) Discharge planning issues: Start date: 08/09/20 Start time: 10:30 Status: Acute Assessment and plan: home when medically stable. All connections and follow up appts have been made prior to discharge for patient. discharge discussed with Dr Duvall Subjective Subjective Patient reports: other Interval history since last seen: Would like to try to eat a regular diet. He does have hiccups, will give thorazine for hiccups. This helped last admission. He denies CP, SOB, N/V/D Exam Const General: cooperative and ill appearing chronically Nutritional Appearance: average body habitus Orientation: alert, awake and oriented x3 HENMT Head: normal to inspection, normocephalic and atraumatic Mouth: oral mucosae normal Resp Effort & Inspection: normal respiratory effort Cardio Rate: regular rate Rhythm: regular rhythm GI Inspection: distended Palpation: firm Auscultation: hypoactive bowel sounds Skin General skin exam: other (extensive acne, ) Lesions: lesion noted (face) Neuro General: patient alert, patient awake and moves all extremities Objective Last Vital Signs Temp 36.5 C 08/09/20 08:30 Pulse 77 08/09/20 08:30 Resp 18 08/09/20 08:30 BP 163/98 H 08/09/20 08:30 Pulse Ox 97 08/09/20 08:30 Laboratory Results - last 24 hr 08/08/20 08/09/20 08/09/20 06:23 06:06 06:06 WBC 3.84 L RBC 4.25 L Hgb 13.6 Hct 41.1 MCV 96.7 H MCH 32.0 MCHC 33.1 RDW 12.9 Plt Count 213 MPV 10.5 Immature Gran % 0.3 Neutrophils % 45.8 Lymphocytes % 36.7 Monocytes % 10.7 Eosinophils % 5.5 Basophils % 1.0 Nucleated RBC % 0 Absolute Neutrophils 1.76 Absolute Lymphocytes 1.41 Absolute Monocytes 0.41 Absolute Eosinophils 0.21 Absolute Basophils 0.04 Sodium 142 Potassium 4.1 D Chloride 110 H Carbon Dioxide 25.6 Anion Gap 6.4 BUN 1 L Creatinine 0.7 Estimated GFR/1.73 m2 >= 60.00 Glucose 125 H Calcium 7.9 L Magnesium 1.7 L Total Bilirubin 0.4 AST 23 ALT 17 Alkaline Phosphatase 77 Total Protein 5.5 L Albumin 2.1 L
[2020-08-09] MEDS: chlorproMAZINE 25 MG TAB PO ×3 (12:11→21:25)
--- NOTE | 2020-08-09 12:12 | CMPROGNOTE_ITS ---
- If Service Date Differs Date of service: 08/09/20 Time of Service: 12:27 Care Management Progress Note S/O: Teena Echols, brought in a new cell phone with a 200 minute phone card for Guillermo today. She also provided him with a one time $25 gift card to [employer] CM assisted Guillermo in setting up his new phone, with a new number, which is [phone]. CM sent referrals to [facility] for [facility], as well as [facility], for case management support. CM updated his phone number on the referral which was sent to [facility] yesterday. CM also updated his phone number with [facility]. Guillermo stated that he does not feel ready for discharge today, as he is still on clear liquids. Per LINEN CONTROLLER, his diet will be advanced this afternoon/evening, and he will be monitored to determine if he can tolerate the advanced diet. Guillermo reported that he does not have food at home, which is a concern for him. He did receive a $25 gift card for [employer], which he can purchase food with. A referral was sent for him to receive meals on wheels as well. CM suggested that he remain at [facility] through lunch the day of his discharge in order to have some food prior to returning home. CM will continue to follow. A: Juan Jose Li is a 60 year old male admitted to [facility] on 08/05/20 with abdominal pain. P: Guillermo will likely be discharged home with referrals to [facility], [facility] and [facility]. He will follow up with his PCP and discharge plan of care. Guillermo will likely transport via [facility] coordinated by MARY ANN. CM will continue to support Guillermo and assess for discharge planning needs.
--- NOTE | 2020-08-09 12:12 | PDOC.CMPRO ---
- If Service Date Differs Date of service: 08/09/20 Time of Service: 12:27 Care Management Progress Note S/O: Teena Echols, brought in a new cell phone with a 200 minute phone card for Guillermo today. She also provided him with a one time $25 gift card to [employer]. CM assisted Guillermo in setting up his new phone, with a new number, which is [phone]. CM sent referrals to [facility] for [facility], as well as [facility] for case management support. CM updated his phone number on the referral which was sent to [facility] yesterday. CM also updated his phone number with [employer]. Guillermo stated that he does not feel ready for discharge today, as he is still on clear liquids. Per SIDE FRAMER, his diet will be advanced this afternoon/evening, and he will be monitored to determine if he can tolerate the advanced diet. Guillermo reported that he does not have food at home, which is a concern for him. He did receive a $25 gift card for [employer], which he can purchase food with. A referral was sent for him to receive meals on wheels as well. CM suggested that he remain at [facility] through lunch the day of his discharge in order to have some food prior to returning home. CM will continue to follow. A: Juan Jose Li is a 60 year old male admitted to [facility] on 08/05/20 with abdominal pain. P: Guillermo will likely be discharged home with referrals to [facility], [facility] and [facility] He will follow up with his PCP and discharge plan of care. Guillermo will likely transport via [facility] coordinated by MARY ANN. CM will continue to support Guillermo and assess for discharge planning needs.
--- NOTE | 2020-08-09 15:04 | CHAPLAIN ---
Juan Jose said he was very much looking forward to eating lunch because he hadn't eaten in five days. He said he didn't even care what was on the menu. He will likely be discharged tomorrow, he said.
[2020-08-09 15:28] VITALS: BP 156/76; PULSE 92; RESP 18; TEMP 36.5; O2SAT 97
[2020-08-09] MEDS: Pantoprazole 40 MG VIAL IVP (21:24)
[2020-08-10] MEDS: Ketorolac 15 MG/ML VIAL IVP (00:24)
[2020-08-10] MEDS: Normal Saline Flush 10 ML SYR IVP ×2 (00:25→03:32)
[2020-08-10 00:30] VITALS: BP 135/90; PULSE 71; RESP 16; TEMP 36.8; O2SAT 94
[2020-08-10] MEDS: HYDROmorphone 2 MG/ML VIAL 1 MG IVP ×2 (03:32→08:50)
[2020-08-10] MEDS: POTASSIUM CHLORIDE/D5-0.45NACL 1,000 ML 80 MEQ IV (04:02)
[2020-08-10] MEDS: Tamsulosin 0.4 MG CAPCR 0.8 MG PO (08:51)
[2020-08-10] MEDS: Multivitamin TAB 1 TAB PO (08:51)
[2020-08-10] MEDS: Nicotine 21 MG/24 HR PATCH TD (08:51)
[2020-08-10] MEDS: Metoprolol 50 MG TAB PO (08:51)
[2020-08-10] MEDS: chlorproMAZINE 25 MG TAB PO (08:51)
[2020-08-10] MEDS: chlordiazePOXIDE 25 MG CAP PO (08:51)
[2020-08-10] MEDS: Finasteride 5 MG TAB PO (08:51)
[2020-08-10] MEDS: Thiamine 100 MG TAB PO (08:51)
[2020-08-10] MEDS: Patch Removal 1 EACH TP (08:52)
[2020-08-10 08:55] VITALS: BP 171/105; PULSE 73; RESP 16; TEMP 36.4; O2SAT 93
--- NOTE | 2020-08-10 13:14 | DSE_ITS ---
Date of service: 08/10/20 Time of Service: 13:14 DS: Diagnosis Discharge Diagnosis (1) Acute on chronic pancreatitis: Start date: 08/10/20 Start time: 13:15 Status: Acute Asessment and Plan: Lipase on admission 270. Presented with 4 days abd pain prior to admission Alcohol level on admission was 130.0 He received fluids. CIWA has been negative. No signs of withdrawal MRCP results reviewed with surgery, their recommendations are for ERCP. case was discussed with Dr Walker at [facility] who does recommend endoscopic US and feels at this point he can safely do as an outpatient. This has been schedulued [facility] has met with patient, outpatient follow ups have been set up; he has appt with [facility] He was given cell phone by [facility] as well for contact. He was told not to drink any alcohol at least 24 hours prior to ERCP Pain improved. Tolerating regular low fat diet. (2) Alcoholism, chronic: Start date: 08/10/20 Start time: 13:26 Status: Chronic Asessment and Plan: Finished librium taper. No withdrawal symptoms while in the hospital (3) Alcoholic gastritis: Start date: 08/10/20 Start time: 13:26 Status: Suspected Asessment and Plan: continue PPI (4) Deep vein thrombosis (DVT) of right upper extremity: Start date: 08/10/20 Start time: 13:27 Status: Chronic Asessment and Plan: anticoagulated on Eliquis but was placed on hold for possible procedure, resumed diagnosed in December 2019 at [facility], reimaged here in June, see report below: will defer course of anticoagulation and re-imaging to pcp. right Upper extremity ultrasound done 07/01/2020: COMPARISON: None. This patient apparently had an outside right upper extremity DVT study performed December 2019 at [facility] which was apparent positive for venous thrombosis in the right upper extremity. FINDINGS: Basilic vein: There is echogenic thrombus in the distal basilic vein. This does not appear to be completely occlusive. Brachial vein(s):Patent. Normal color flow. Normal compression and augmentation properties. Cephalic vein:Thrombus within the distal cephalic vein over a distance of 8 cm. This does not compress. Intraluminal catheter seen in this region. Axillary vein: Patent. Normal color flow. Normal compression and augmentation properties. Visualized subclavian vein: Patent. No obvious intraluminal thrombus. IMPRESSION: 1. Positive study for intraluminal thrombus in the right upper extremity. 2. There is intraluminal thrombus with in the distal right basilar vein which is not appear occlusive and is echogenic and may be nonacute. 3. there is occlusive intraluminal thrombus within the right cephalic vein, this over a distance of 8 cm. This is at the upper arm level. (5) Urinary retention: Start date: 08/10/20 Start time: 13:27 Status: Chronic Asessment and Plan: On flomax and finasteride. Did require sharp at one point, his sharp was dcd and voiding trial done successfully (6) Hiccups: Start date: 08/10/20 Start time: 13:28 Status: Chronic Asessment and Plan: Thorazine. Intractable. Helpful, Cessation of alcohol will help with hiccups. Discussed with Dr. Smith Discharge Plan Disposition Patient Disposition: HOME Condition: Improving Discharge Details Reason For Visit: Abd Pain Admit Date/Time: 08/05/20 21:16 Admit Provider: Alejo Larson Attending Provider: Alejo Larson Primary Care Provider: Unknown,Unknown Hospital Course Hospital Course: This 60-year-old male is here because of severe abdominal pain, nausea and vomiting. He has a history of recurrent pancreatitis likely due to alcohol intake. He was recently admitted to the hospital and discharged for a bout of pancreatitis on 07/18. He states abdominal pain x 4 days prior to admission worse when he walked, burped, or sneezed. Labs in the ED significant for 130.0 ethyl level. Other hamilton unremarkable. He was admitted for recurrent pancreatitis, likely gastritis. CT abd 1. Interval development of intra and extrahepatic biliary ductal dilatation. Gallbladder distension. No definite cholelithiasis. Obstructing stone or mass should be considered. MRCP/ERCP should be considered for further evaluation. 2. Findings again suggestive of chronic pancreatitis. No definite evidence of acute pancreatitis. 3. Fluid-filled loops of small bowel. An inflammatory/infectious enteritis may be considered. Please correlate clinically. 4. Examination limited by patient motion artifact. . Since admission he has improved. He did have an MRI: 1. Extrahepatic biliary ductal dilatation and distention of the gallbladder which has developed since the prior examination from 07/01/2020. A small mass or obstructing stone near the ampulla cannot be excluded. 2. Resolution of the peripancreatic fluid collection. 3. Atrophy of the body and tail of the pancreas. 4. Stable dilatation of the pancreatic duct. [facility] recommend outpatient ERCP. The office will call for appt to schedule. [employer] has been involved to help patient with all needs of food and communications. He was given a cell phone. His pain has improved. He was placed on PPI. He was able to tolerate low fat regular diet yesterday and therefore is being discharged home today. He denies CP, SOB, N/V/D. Home Meds and New Rx's Prescriptions: New pantoprazole [Protonix] 40 mg tablet,delayed release (DR/EC) 40 mg PO DAILY Qty: 30 RF: 0 Continued Creon 12,000-38,000 -60,000 unit capsule,delayed release(DR/EC) 1 cap PO AC & HS Qty: 120 RF: 0 tamsulosin 0.4 mg Capsule 0.8 mg PO DAILY Qty: 30 RF: 0 sucralfate [Carafate] 1 gram tablet 1 g PO BID Qty: 60 RF: 0 finasteride 5 mg Tablet 5 mg PO DAILY Qty: 30 RF: 0 metoprolol tartrate 25 mg Tablet 50 mg PO BID Qty: 60 RF: 0 multivitamin [Multiple Vitamins] Tablet 1 tab PO DAILY Qty: 0 RF: 0 thiamine mononitrate (vit B1) [Vitamin B-1 (mononitrate)] 100 mg Tablet 100 mg PO QAM Qty: 30 RF: 0 Eliquis 5 mg tablet 5 mg PO BID Qty: 60 RF: 0 magnesium oxide 500 mg capsule 500 mg PO BID Qty: 60 RF: 0 ondansetron 4 mg tablet,disintegrating 4 mg PO TID PRN (Reason: nausea and vomiting) Qty: 6 RF: 0 Discontinued omeprazole magnesium [Prilosec OTC] 20 mg tablet,delayed release (DR/EC) 20 mg PO DAILY Qty: 60 RF: 0 oxazepam 10 mg capsule 10 mg PO TID Qty: 18 RF: 0 Discharge Instructions Instructions: Gastritis (DC), ERCP (Endoscopic Retrograde Cholangiopancreatography) (DC) Stand Alone Forms: Nursing Discharge Form Referrals: [facility] Gastro [Other] (Office will call you with an apppointment. ) Benjamin Bustillos DO [OSTEOPATHIC DOCTOR] - 08/16/20 3:00 pm Activity:: Activity as Tolerated Equipment/Supplies:: No Equipment Needed Diet:: Low fat Discharge Orders Discharge Orders: Discharge Order (Routine); Ordered 08/10/20 Ordered By: Mabel Mayen DS: Summary Time Spent with Patient providing and/or coordinating discharge services: Greater than 30 minutes Status at Discharge Functional status at discharge: independent ambulation Overall status at discharge: patient is progressing back to baseline Mental Status: mental status grossly normal Speech and Movement: speech and movement normal Mood: congruent mood Affect: normal affect Exam Const General: cooperative and ill appearing chronically Nutritional Appearance: average body habitus Orientation: alert, awake and oriented x3 HENMT Head: normal to inspection, normocephalic and atraumatic Mouth: oral mucosae normal Resp Effort & Inspection: normal respiratory effort Cardio Rate: regular rate Rhythm: regular rhythm GI Inspection: distended Palpation: firm Auscultation: hypoactive bowel sounds Skin General skin exam: other (extensive acne, ) Lesions: lesion noted (face) Neuro General: patient alert, patient awake and moves all extremities Psych Mental Status: mental status grossly normal Speech and Movement: speech and movement normal Mood: congruent mood Affect: normal affect DS: Data Vitals/I&O Vitals and I&O: Vital Signs Temperature 36.4 C L 08/10/20 08:55 Temperature Source Tympanic 08/10/20 08:55 Pulse 73 08/10/20 08:55 Pulse Rhythm Regular 08/10/20 00:30 Pulse 71 08/05/20 21:46 Respiratory Rate 16 08/10/20 08:55 Respiratory Effort Non-Labored 08/10/20 00:30 Respiratory Depth Normal 08/10/20 00:30 Respiratory Pattern Normal 08/10/20 00:30 Blood Pressure 171/105 H 08/10/20 08:55 Blood Pressure Mean 105 08/05/20 21:46 Pulse Oximetry 93 08/10/20 08:55 Oxygen Delivery Method Room Air 08/10/20 08:55 Oxygen Flow Rate 0 08/10/20 08:55 Pain Level 9 08/10/20 08:55 Comment 08/07/20 23:48 Intake & Output 08/09/20 08/10/20 08/10/20 23:59 11:59 23:59 Intake Total 1185.333 / 2668.000 974 / 1584 610 / 1584 Output Total 175 / 175 Balance 1185.333 / 918.000 799 / 1409 610 / 1409 Intake: IV 985.333 / 1868.000 974 / 974 Oral 200 / 800 610 / 610 Output: Urine 175 / 175 Other: Urine Appearance Clear Clear Comment Bladder scan between 309-429ml post void. This is first void since sharp removal. Data Completed and Pending Completed studies during hospitalization [Text1]: FINDINGS: MEDIASTINUM: Normal. HEART: Normal. PULMONARY VASCULATURE: Normal. LUNGS: Clear. PLEURAL SPACE: No pleural effusion or pneumothorax. BONE:Degenerative changes lower thoracic spine. IMPRESSION: No acute pulmonary findings. Exam(s) a CT:CT abdomen & pelvis w Exam(s) CT ABDOMEN PELVIS W EXAM: CT ABDOMEN PELVIS W CLINICAL HISTORY: epigastric and groin pain TECHNIQUE: Imaging Protocol: Axial computed tomography images with coronal and sagittal reformatted images were created and reviewed CONTRAST MATERIAL: Intravenous: Omnipaque 350 Contrast volume:100 mL Oral: No COMPARISON: CT CT ABDOMEN PELVIS W from 06/25/[address] ABDOMEN PELVIS W from 06/25/[address] ABDOMEN PELVIS W from 06/29/[address] ABDOMEN PELVIS W from 06/29/2020 FINDINGS: The examination is limited due to patient motion artifact. ABDOMEN: Lung Bases: Normal where visualized. Liver: Normal density. No measurable mass. Portal, Superior Mesenteric, and Splenic Veins: Unremarkable. Gallbladder and Biliary Tract: There is a distended gallbladder. There has been interval development of intra and extrahepatic biliary ductal dilatation since the prior examination. No gallstones are identified. Pancreas: There is again seen calcification within the pancreas suggesting chron ic pancreatitis. Mild pancreatic atrophy is present. Unchanged prominence of the pancreatic duct is noted. No peripancreatic fluid collections are seen. Spleen: Normal. Adrenals: No masses seen. Kidneys: Normal size, contour and axis. No radiodense stones or obstructive uropathy. No masses seen. Abdominal Aorta: Abdominal portion non-dilated. Moderate atherosclerosis. Bowel: No obstruction or bowel wall thickening. The descending and sigmoid colon is incompletely distended limiting evaluation. No pericolonic inflammatory changes are seen. Fluid-filled loops of small bowel are noted. Ap pendix is unremarkable. Diverticulosis is seen in the sigmoid colon but no evidence of acute diverticulitis. Peritoneal Cavity: No ascites, collection or mesenteric inflammatory response. No free air. Lymph Nodes: Within normal limits. Bones: Within normal limits for the patient's age. Soft Tissues: Unremarkable. PELVIS: Bladder: Symmetric distention, no gross wall thickening. Reproductive Organs: Mildly enlarged prostate. Lymph Nodes: Within normal limits. Bones: Within normal limits for the patient's age. IMPRESSION: 1. Interval development of intra and extrahepatic biliary ductal dilatation. Gallbladder distension. No definite cholelithiasis. Obstructing stone or mass should be considered. MRCP/ERCP should be considered for further evaluation. 2. Findings again suggestive of chronic pancreatitis. No definite evidence of acute pancreatitis. 3. Fluid-filled loops of small bowel. An inflammatory/infectious enteritis may be considered. Please correlate clinically. 4. Examination limited by patient motion artifact. : 1960Age: 60 Exam(s) PROCEDURE INFORMATION: Exam: CT Abdomen And Pelvis With Contrast Exam date and time: 08/05/2020 4:21 PM Age: 60 years old Clinical indication: Abdominal pain; Patient HX: Epigastric and groin TECHNIQUE: Imaging protocol: Computed tomography of the abdomen and pelvis with contrast. COMPARISON: CT ABDOMEN PELVIS W 06/29/2020 7:22 PM FINDINGS: Liver: Normal. No mass. Gallbladder and bile ducts: There is interval development of dilatation of intrahepatic and extrahepatic bile ducts. The common bile duct measures approximately 11 mm in diameter. No definite calculus is noted within the common bile duct. The gallbladder appears distended. Pancreas: The main pancreatic duct is also dilated measuring up to focal7 mm in diameter. The main pancreatic duct was also dilated on the prior study. However, there are coarse calcifications seen within the uncinate process of the pancreas which were also present on the prior exam. Spleen: Normal. No splenomegaly. Adrenal glands: Normal. No mass. Kidneys and ureters: Normal. No hydronephrosis. Stomach and bowel: Diverticulosis of the colon is present.Thickening of the wall of the colon. This may be artifact due to lack of distention. Appendix: No evidence of appendicitis. Intraperitoneal space: Unremarkable. No free air. No significant fluid collection. Vasculature: The aorta demonstrates moderate atherosclerotic calcification. Lymph nodes: Unremarkable. No enlarged lymph nodes. Urinary bladder: The urinary bladder appears moderately distended. Reproductive: Unremarkable as visualized. Bones/joints: Chronic degenerative changes of the spine are present. Soft tissues: Unremarkable. IMPRESSION: 1. Interval development of intrahepatic and extrahepatic bile duct dilatation and distention of the gallbladder. An obstructing process at or near the sphincter of Oddi is suspected. Correlation with ERCP or MRCP may be useful. 2. Coarse calcifications are noted within the uncinate process of the pancreas, unchanged most likely secondary to chronic pancreatitis. 3. No change in dilatation of the main pancreatic duct. 4. Diverticulosis. 5. Thickening of the wall of the colon. This may be artifact due to lack of distention. However, inflammatory bowel disease or other causes of colitis cannot be excluded. Exam(s) MR ABDOMEN WO EXAM: MR ABDOMEN WO CLINICAL HISTORY: abdominal pain, hepatobiliary ductal dilatation TECHNIQUE: Multiplanar multisequence MRA of the Abdomen was performed. CONTRAST MATERIAL: IV Contrast: 0 mL of Dotarem contrast administered. COMPARISON: CT CT ABDOMEN PELVIS W from 06/29/[address] ABDOMEN PELVIS W from 06/29/2020 MR MR ABDOMEN WO/W from 07/01/2020 MR MR ABDOMEN WO/W from 07/01/[address] ABDOMEN PELVIS W from 08/05/2020 FINDINGS: Liver: Unremarkable. Pancreas: The previously noted fluid collection between the uncinate and SMA is no longer visualized. There is persistent dilatation of the pancreatic duct. Atrophy of the pancreatic body and tail is noted. No definite pancreatic mass is seen. Gallbladderand Bile Ducts: The gallbladder is distended measured 5.3 cm in diameter. There has been interval dilatation of the common of the extrahepatic and intrahepatic bile ducts. The common duct measures 9 mm. There is abrupt termination in the head of the pancreas. A small mass at the ampulla cannot be excluded. Adrenals: Unremarkable. Kidneys: Unremarkable. Spleen: Unremarkable. Aorta: Unremarkable. Soft Tissues: Unremarkable. Bone: Unremarkable. Lymph Nodes: Unremarkable. IMPRESSION: 1. Extrahepatic biliary ductal dilatation and distention of the gallbladder which has developed since the prior examination from 07/01/2020. A small mass or obstructing stone near the ampulla cannot be excluded. 2. Resolution of the peripancreatic fluid collection. 3. Atrophy of the body and tail of the pancreas. 4. Stable dilatation of the pancreatic duct. [facility] Medical History Acute UTI Alcohol withdrawal Alcoholic gastritis Alcoholism /alcohol abuse ARDS (adult respiratory distress syndrome) Aspiration pneumonia COVID-19 ruled out by laboratory testing Enterocolitis Fever Ground glass opacity present on imaging of lung HTN (hypertension) Hx of hyperlipidemia Hypokalemia Hypomagnesemia Myocardial infarction x 2 Pancreatitis Pancreatitis, chronic Pneumonia Presence of pancreatic duct stent (~01/2018) [facility]ffanie Sears. Retention of urine Septal myocardial infarction (01/18/20) probably old, [facility] records Urinary retention Surgical History S/P ERCP (~01/2018) Steffanie Sears. Family History Mother Alcohol abuse Father Alcohol abuse Social History Smoking/Tobacco Use Status: Current every day Tobacco Type: cigarettes Smoking packs per day: 1 Smoking cigarettes per day: 20.0 Smoking risk assessment performed?: Yes Alcohol Intake: current Alcohol Intake frequency: 3 or more drinks per day Alcohol type: beer Drug use: Occasionally Substance use type: marijuana Housing: apartment Do you feel safe at home: Yes Do you feel safe in your relationship?: Yes
--- NOTE | 2020-08-10 19:56 | CMDISCH_ITS ---
- If Service Date Differs Date of service: 08/10/20 Time of Service: 19:56 LACE Index Scoring Tool - Questions: Length of Stay (in days): 4 - 6 Acuity (Admit via E.D.?): Yes Comorbidities: Any Tumor E.D. Visits: 20 - Answers: Total Score: 13 Risk of Readmission: High Risk Care Management Discharge Reason for Hospitalization: Chronic abdominal pain Discharge Plan: Guillermo returned home today as he has been medically cleared. CM coordinated transport via [facility] private vehicle. He has a new phone, which [employer] assisted in providing, along with a $25 gift card to [employer]. A referral was placed to [facility] for case management, and [facility] for MOW. He will follow up with his PCP, and an appointment was made for him prior to discharge, and he was provided with the appointment date and time. He was agreeable to returning home. Patient/Family Education Needs: Review discharge instructions regarding activity levels, diet recommendations, alcohol cessation, and follow up appointments. Discussion of self care needs including ask me three. Services Needed at Discharge: Transportation ([facility])
== END 2020-08-10 15:10 | disposition home or self-care (01) | DRG 439 ==
LOC: ER 21:29 → MS 21:47
PROVIDERS: Nurse Practitioner Acute Care; Admitting Provider General Practice; Emergency Provider Student in an Organized Health Care Education/Training Program; Visit Provider General Practice
DX: K85.20 Alcohol induced acute pancreatitis without necrosis or infection; I82.721 Chronic embolism and thrombosis of deep veins of right upper extremity; F10.231 Alcohol dependence with withdrawal delirium; K86.0 Alcohol-induced chronic pancreatitis; F10.20 Alcohol dependence, uncomplicated; K29.20 Alcoholic gastritis without bleeding; R33.9 Retention of urine, unspecified; R06.6 Hiccough; K21.9 Gastro-esophageal reflux disease without esophagitis; Z20.822 Contact with and (suspected) exposure to COVID-19; I10 Essential (primary) hypertension; E78.5 Hyperlipidemia, unspecified; I25.2 Old myocardial infarction; F17.210 Nicotine dependence, cigarettes, uncomplicated; K83.8 Other specified diseases of biliary tract
CPT/HCPCS: 36415; 80048; 80053; 83690; 85027; 87635; 93005; 96361; 96374; 96375; 99285; 74177; 74181; 80320; 81003; 83605; 83735; 85025; 93010; 94667; 99222; 99232; 99233; 99239; J1885; J2405; J3490

== ENCOUNTER 2020-08-17 21:35 | Emergency (ER) | payer MEDICAID, SELFPAY ==
[2020-08-17 21:38] VITALS: BP 102/81; PULSE 118; RESP 18; TEMP 36.7; O2SAT 97
--- NOTE | 2020-08-17 21:55 | W.ED.GENAD ---
Discharge Plan Disposition Patient Disposition: HOME Condition: Stable Discharge Details Clinical Impression: Abdominal pain Primary Care Provider: Unknown,Unknown ED Provider: Jennifer Bowen Home Meds and New Rx's Prescriptions: Continued Creon 12,000-38,000 -60,000 unit capsule,delayed release(DR/EC) 1 cap PO AC & HS Qty: 120 RF: 0 tamsulosin 0.4 mg Capsule 0.8 mg PO DAILY Qty: 30 RF: 0 sucralfate [Carafate] 1 gram tablet 1 g PO BID Qty: 60 RF: 0 finasteride 5 mg Tablet 5 mg PO DAILY Qty: 30 RF: 0 metoprolol tartrate 25 mg Tablet 50 mg PO BID Qty: 60 RF: 0 multivitamin [Multiple Vitamins] Tablet 1 tab PO DAILY Qty: 0 RF: 0 thiamine mononitrate (vit B1) [Vitamin B-1 (mononitrate)] 100 mg Tablet 100 mg PO QAM Qty: 30 RF: 0 Eliquis 5 mg tablet 5 mg PO BID Qty: 60 RF: 0 magnesium oxide 500 mg capsule 500 mg PO BID Qty: 60 RF: 0 ondansetron 4 mg tablet,disintegrating 4 mg PO TID PRN (Reason: nausea and vomiting) Qty: 6 RF: 0 pantoprazole [Protonix] 40 mg tablet,delayed release (DR/EC) 40 mg PO DAILY Qty: 30 RF: 0 Discharge Instructions Instructions: Pancreatitis (ED), Abdominal Pain (ED) Additional Instructions: Please try to stop drinking alcohol. This will exacerbate your pain. Increase oral fluids. Please take Tylenol or Ibuprofen with food every 4-6 hours as needed for pain and swelling. At this time no evidence for infection or pancreatitis flare. You were given nausea medication, pain medication including GI cocktail and Bentyl, and Zofran which is nausea medication to go home with. You are placed on the care management follow-up list to discuss getting your prescriptions filled. Follow up with primary care provider in 3-5 days. Return to ED sooner if any worsening or concerns. Increase oral fluids. Discharge Data Discharge Date/Time-TO BE ENTERED AT DEPARTURE: 08/18/20 00:40 Medical Decision Making 60 year old male who is well known to department presents with generalized abd pain, dry heaving, not taking his normal medications due to inability to obtain them and increased alcohol intake. Patient admits to drinking 3 beers prior to arrival. He denies fever chills denies chest pain shortness of breath. He does have a past medical history of hypertension, hypokalemia, alcoholic gastritis, acute pancreatitis, DVT, pancreatic mass and chronic abdominal pain. Of note he does report visual and auditory hallucinations and tactile hallucinations. He is alert and oriented upon initial exam no tremor noted no evidence for alcohol withdrawal. Last alcoholic drink was approximately 1 hour prior to arrival. Work-up ordered including CBC CMP alcohol level, lactate, lipase Labs are largely at baseline except for lactate which is 3.3 which I attribute to dehydration and alcohol use. Alcohol level is at 179 IV was unobtainable by full time staff interpreter labs were drawn by lab. Patient was taking p.o. fluids without difficulty in department. Was given Zofran 4 mg ODT, GI cocktail, Bentyl, Tylenol p.o. without vomiting. Patient is requesting narcotic medication I did inform him that I would not be prescribing him or giving him any narcotics at this time. CT was not ordered at this time due to recent CT abdomen 2 weeks ago and multiple imaging done this year. Patient has had 4 CTs done this year. Patient discharged with case management referral for help with getting his normal medications. And patient's recurrent ED visits. HPI General Mode of arrival: EMS. Date/Time Provider Initiated Documentation: 08/17/20 21:51. Information obtained by: patient. HPI Narrative: 60 year old male who is well known to department presents with generalized abd pain, dry heaving, not taking his normal medications due to inability to obtain them and increased alcohol intake. Patient admits to drinking 3 beers prior to arrival. He denies fever chills denies chest pain shortness of breath. He does have a past medical history of hypertension, hypokalemia, alcoholic gastritis, acute pancreatitis, DVT, pancreatic mass and chronic abdominal pain. Of note he does report visual and auditory hallucinations and tactile hallucinations. He is alert and oriented upon initial exam no tremor noted no evidence for alcohol withdrawal. Last alcoholic drink was approximately 1 hour prior to arrival. Related Data Home Medications Medication Instructions Recorded Confirmed Creon 1 cap PO AC & HS #120 cap 01/28/20 08/18/20 tamsulosin 0.8 mg PO DAILY #30 cap 02/07/20 08/05/20 sucralfate [Carafate] 1 g PO BID #60 tab 04/30/20 08/05/20 finasteride 5 mg PO DAILY #30 tab 06/27/20 08/05/20 Eliquis 5 mg PO BID #60 tab 07/02/20 08/05/20 magnesium oxide 500 mg PO BID #60 cap 07/02/20 07/21/20 multivitamin [Multiple Vitamins] 1 tab PO DAILY #0 tab 07/02/20 08/05/20 thiamine mononitrate (vit B1) 100 mg PO QAM #30 tab 07/02/20 08/05/20 [Vitamin B-1 (mononitrate)] metoprolol tartrate 50 mg PO BID #60 tab 07/19/20 08/05/20 ondansetron 4 mg PO TID PRN #6 tab 07/21/20 08/05/20 pantoprazole [Protonix] 40 mg PO DAILY #30 tab 08/10/20 Previous Rx's Medication Instructions Recorded Creon 1 cap PO AC & HS #120 cap 01/28/20 tamsulosin 0.8 mg PO DAILY #30 cap 02/07/20 sucralfate [Carafate] 1 g PO BID #60 tab 04/30/20 finasteride 5 mg PO DAILY #30 tab 06/27/20 Eliquis 5 mg PO BID #60 tab 07/02/20 magnesium oxide 500 mg PO BID #60 cap 07/02/20 multivitamin [Multiple Vitamins] 1 tab PO DAILY #0 tab 07/02/20 thiamine mononitrate (vit B1) 100 mg PO QAM #30 tab 07/02/20 [Vitamin B-1 (mononitrate)] metoprolol tartrate 50 mg PO BID #60 tab 07/19/20 ondansetron 4 mg PO TID PRN #6 tab 07/21/20 pantoprazole [Protonix] 40 mg PO DAILY #30 tab 08/10/20 Allergies Allergy/AdvReac Type Severity Reaction Status Date / Time Opioids - Morphine Analogues Allergy Mild urticaria Verified 08/05/20 16:14 Penicillins Allergy Unverified 08/05/20 16:13 General Stated Complaint: Abd Prob DMITRI: 3 Review of Systems Narrative: Constitutional: Negative for weight loss, alert and oriented, well groomed, normal body habitus, appears mildly intoxicated. HEENT: Denies trauma, headaches, blurry vision, nasal discharge, sore throat, trouble swallowing. Chest: Denies chest pain, palpitations, irregular rhythm, hypertension. Respiratory: Denies Shortness of breath, cough, hemoptysis. GI: Denies constipation. Positive generalized abdominal pain, history of pancreatitis, positive nausea vomiting. : Denies dysuria, hematuria, flank pain, rectal bleeding. Neuro: Denies dizziness, blurry vision, weakness, syncope, headache or facial numbness. Reports visual auditory and tactile hallucinations. Hematologic: Denies easy bruising, intolerance to heat or cold, hair loss. [facility] Medical History Acute UTI Alcohol withdrawal Alcoholic gastritis Alcoholism /alcohol abuse ARDS (adult respiratory distress syndrome) Aspiration pneumonia COVID-19 ruled out by laboratory testing Enterocolitis Fever Ground glass opacity present on imaging of lung HTN (hypertension) Hx of hyperlipidemia Hypokalemia Hypomagnesemia Myocardial infarction x 2 Pancreatitis Pancreatitis, chronic Pneumonia Presence of pancreatic duct stent (~01/2018) [facility] Retention of urine Septal myocardial infarction (01/18/20) probably old, [facility] records Urinary retention Surgical History S/P ERCP (~01/2018) Sean Sears Family History Mother Alcohol abuse Father Alcohol abuse Social History Smoking/Tobacco Use Status: Current every day Tobacco Type: cigarettes Smoking packs per day: 1 Smoking cigarettes per day: 20.0 Smoking risk assessment performed?: Yes Alcohol Intake: current Alcohol Intake frequency: 3 or more drinks per day Alcohol type: beer Drug use: Occasionally Substance use type: marijuana Housing: apartment Do you feel safe at home: Yes Do you feel safe in your relationship?: Yes Exam Narrative Exam Narrative: Constitutional: Alert and oriented x3. Appears stated age. Normal body habitus. Head: Normocephalic, no trauma. Eyes: Pupils PERRLA, Red reflex noted, EOM's intact. Eyelids symmetrical without lesions, discharge, or swelling. ENT: Bilateral TM's WNL, External ear normal to inspection, no mastoid TTP, swelling, or erythema, Nasal turbinates WNL, no nasal discharge. Normal dentition, Posterior pharynx WNL, no exudate. Chest: RRR, Normal S1, S2, distal pulses intact. Resp: Lungs clear to auscultation bilaterally, no wheezes, rales, or rhonchi. Abdomen: Soft, nondistended generalized tenderness with palpation. No masses. Musculoskeletal: Normal gait, 5/5 strength to all four extremities. Skin: No suspicious rashes or lesions. Capillary refill less than 2 sec. Neurologic: Cranial nerves II-XII intact. Alert and oriented x 3. DTR's intact. CIWA score currently approximately 8 according the MD Calc patients with scores less than or equal to 8 typically do not require medication for withdrawal. No tremor noted. Hematologic/Lymphatic: No ecchymosis, no lymphadenopathy. Course Vital Signs Vital signs: Vital Signs Temperature 36.7 C 08/17/20 21:38 Pulse 118 H 08/17/20 21:38 Respiratory Rate 18 08/17/20 21:38 Blood Pressure 102/81 08/17/20 21:38 Pulse Oximetry 97 08/17/20 21:38 Temperature 36.7 C 08/17/20 21:38 Temperature Source Temporal Artery Scan 08/17/20 21:38 Pulse 118 H 08/17/20 21:38 Respiratory Rate 18 08/17/20 21:38 Respiratory Effort Non-Labored 08/17/20 21:40 Blood Pressure 102/81 08/17/20 21:38 Pulse Oximetry 97 08/17/20 21:38 Oxygen Delivery Method Room Air 08/17/20 21:38 Oxygen Flow Rate 0 08/17/20 21:38 Pain Level 10 08/17/20 21:38
[2020-08-17 22:56] LABS: Abs Immature Grans 0.01 10^3/uL (0.0-0.06); Absolute Basophil Count 0.05 10^3/uL (0.0-0.2); Absolute Eosinophil Count 0.15 10^3/uL (0.0-0.7); Absolute Lymphocyte Count 2.63 10^3/uL (1.2-3.4); Absolute Neutrophil Count 1.23 10^3/uL (1.2-6.7); Basophils % 1.1; Eosinophils % 3.4; HCT 42.3 % (40.0-50.0); HGB 13.8 g/dL (13.5-17.5); Immature Grans % 0.2; Lymphocytes % 58.8; MCHC 32.6 % (32.0-36.0); MCV 98.1 fL (80-95); MPV 9.5 fL (8.0-11.0); Monocytes % 8.9; Neutrophils % 27.6; Nucleated RBC 0 %; Platelet Count 299 10^3/uL (130-400); RBC 4.31 10^6/uL (4.36-5.78); RDW 13.5 % (11.8-14.1); RDW-SD 48.2 fL; WBC 4.47 10^3/uL (4.4-10.8)
[2020-08-17 22:58] LABS: Lactate 3.3 mmol/L (0.6-1.4)
[2020-08-17] MEDS: Ondansetron O.D.T. 4 MG TABEF PO (22:58)
[2020-08-17] MEDS: Acetaminophen 325 MG TAB 650 MG PO (22:58)
[2020-08-17 23:19] LABS: ALT 25 U/L (16-63); AST 32 U/L (15-37); Albumin 2.8 g/dL (3.4-5.0); Alkaline Phosphatase 84 U/L (46-116); Anion Gap 9.7 mmol/L (3-11); BUN 6 mg/dL (7-18); Bilirubin, Total 0.2 mg/dL (0.2-1.0); CO2 25.3 mmol/L (21.0-32.0); CREATININE 0.8 mg/dL (0.70-1.30); Calcium 8.2 mg/dL (8.5-10.1); Chloride 110 mmol/L (98-107); ETHANOL BLOOD 179.4 mg/dL (<3); Glucose 104 mg/dL (74-106); Lipase 210 U/L (73-393); Magnesium 2.1 mg/dL (1.8-2.4); Potassium 3.8 mmol/L (3.5-5.1); Sodium 145 mmol/L (136-145); Total Protein 6.3 g/dL (6.4-8.2); Troponin I < 0.05 ng/mL (<0.06)
[2020-08-18] MEDS: Dicyclomine 20 MG TAB PO (00:22)
[2020-08-18 00:27] VITALS: BP 102/81; PULSE 99; RESP 18; TEMP 36.7; O2SAT 97
[2020-08-18] MEDS: Ondansetron O.D.T. 4 MG TABEF PO (00:27)
== END 2020-08-18 00:40 | disposition home or self-care (01) ==
PROVIDERS: Emergency Provider Registered Nurse Emergency
DX: R10.84 Generalized abdominal pain (principal); F10.120 Alcohol abuse with intoxication, uncomplicated; Y90.6 Blood alcohol level of 120-199 mg/100 ml; R44.0 Auditory hallucinations; R44.1 Visual hallucinations; R44.2 Other hallucinations
CPT/HCPCS: 36415; 80053; 83690; 99283; 80320; 81003; 83605; 83735; 84484; 85025

== ENCOUNTER 2020-08-18 18:32 | Emergency (ER) | payer MEDICAID, SELFPAY ==
[2020-08-18 18:53] VITALS: BP 120/71; PULSE 108; RESP 16; TEMP 37.4; O2SAT 97
[2020-08-18 19:45] LABS: Abs Immature Grans 0.02 10^3/uL (0.0-0.06); Absolute Basophil Count 0.06 10^3/uL (0.0-0.2); Absolute Eosinophil Count 0.22 10^3/uL (0.0-0.7); Absolute Lymphocyte Count 2.26 10^3/uL (1.2-3.4); Absolute Monocyte Count 0.46 10^3/uL (0.1-0.8); Basophils % 1.4; Eosinophils % 5.1; HCT 41.4 % (40.0-50.0); HGB 13.6 g/dL (13.5-17.5); Immature Grans % 0.5; MCH 32.4 pg (27.0-33.0); MCHC 32.9 % (32.0-36.0); MCV 98.6 fL (80-95); MPV 9.4 fL (8.0-11.0); Monocytes % 10.6; Neutrophils % 30.4; Nucleated RBC 0 %; Platelet Count 302 10^3/uL (130-400); RDW 13.9 % (11.8-14.1); RDW-SD 50.1 fL; WBC 4.35 10^3/uL (4.4-10.8)
[2020-08-18 19:46] LABS: Absolute Neutrophil Count 1.32 10^3/uL (1.2-6.7)
--- NOTE | 2020-08-18 19:46 | W.ED.GENAD ---
Discharge Plan Disposition Patient Disposition: HOME Condition: Stable Discharge Details Clinical Impression: Chronic abdominal pain Primary Care Provider: Unknown,Unknown ED Provider: Brett Blanco Home Meds and New Rx's Prescriptions: Continued Creon 12,000-38,000 -60,000 unit capsule,delayed release(DR/EC) 1 cap PO AC & HS Qty: 120 RF: 0 tamsulosin 0.4 mg Capsule 0.8 mg PO DAILY Qty: 30 RF: 0 sucralfate [Carafate] 1 gram tablet 1 g PO BID Qty: 60 RF: 0 finasteride 5 mg Tablet 5 mg PO DAILY Qty: 30 RF: 0 metoprolol tartrate 25 mg Tablet 50 mg PO BID Qty: 60 RF: 0 multivitamin [Multiple Vitamins] Tablet 1 tab PO DAILY Qty: 0 RF: 0 thiamine mononitrate (vit B1) [Vitamin B-1 (mononitrate)] 100 mg Tablet 100 mg PO QAM Qty: 30 RF: 0 Eliquis 5 mg tablet 5 mg PO BID Qty: 60 RF: 0 magnesium oxide 500 mg capsule 500 mg PO BID Qty: 60 RF: 0 ondansetron 4 mg tablet,disintegrating 4 mg PO TID PRN (Reason: nausea and vomiting) Qty: 6 RF: 0 pantoprazole [Protonix] 40 mg tablet,delayed release (DR/EC) 40 mg PO DAILY Qty: 30 RF: 0 Discharge Instructions Additional Instructions: follow up with your primary care provider within 1 week. I also placed you on our follow up list to help arrange the ultrasound you need with [facility] if you feel more ill, have persistent vomit or fevers return to the emergency department Discharge Data Discharge Date/Time-TO BE ENTERED AT DEPARTURE: 08/18/20 21:05 Medical Decision Making <Emi Diane DO - Last Filed: 08/19/20 14:57> 60-year-old male with history of multiple ED visits for abdominal pain, most recently seen here last night and discharged home presents for return of abdominal pain consistent with his chronic pancreatitis in addition to complaint of lower back pain and legs giving out . Review of labs from last evening noted a normal white blood cell count and normal lipase. He was given tylenol, gi cocktail and bentyl and zofran and was discharged home. They were unable to obtain IV access so he was given oral hydration. Patient repeatedly requested narcotics but this was not given. CT abdomen/pelvis from 08/05 notes: IMPRESSION: 1. Interval development of intra and extrahepatic biliary ductal dilatation. Gallbladder distension. No definite cholelithiasis. Obstructing stone or mass should be considered. MRCP/ERCP should be considered for further evaluation. 2. Findings again suggestive of chronic pancreatitis. No definite evidence of acute pancreatitis. 3. Fluid-filled loops of small bowel. An inflammatory/infectious enteritis may be considered. Please correlate clinically. 4. Examination limited by patient motion artifact. He had an abdominal MRI on 08/06 which noted: IMPRESSION: 1. Extrahepatic biliary ductal dilatation and distention of the gallbladder which has developed since the prior examination from 07/01/2020. A small mass or obstructing stone near the ampulla cannot be excluded. 2. Resolution of the peripancreatic fluid collection. 3. Atrophy of the body and tail of the pancreas. 4. Stable dilatation of the pancreatic duct. Patient was admitted on his visit on 08/05 for these above findings which were reviewed with surgery who discussed with [facility] surgery who recommended ERCP which was thought to be done as an outpatient and was scheduled for the patient per the DC summary from 08/10. Labs today reviewed and notes a normal white blood cell count. Sodium 147. Anion gap 15. Normal LFTs. Lipase normal. Case endorsed to Dr. Blanco to continue to monitor and reassess after meds with p.o. challenge and final disposition. Medical Records Medical records reviewed: Yes I reviewed the patient's medical records. <Brett Blanco MD - Last Filed: 08/18/20 21:04> Pt is feeling better and requesting d/c. He has no pain or tenderness now and wants to go home. HE is clinically sober and able to make his own decisions. He was offered fluids and recheck of his anion gap which is likely from dehydration vs chronic alcohol use and malnutrition but he declines. I will place on our follow up list to try and arrange his outpatient ercp guided ultrasound [place] [facility] [place]. Return precautions given Lab Data Lab results reviewed: Yes I reviewed the patient's lab results. HPI <Emi Diane DO - Last Filed: 08/19/20 14:57> General Mode of arrival: ambulatory. Date/Time Provider Initiated Documentation: 08/18/20 19:02. Limitations to Documentation: no limitations. Information obtained by: patient. HPI Narrative: Pt is a 60yo male with a history of multiple ED visit secondary to abdominal pain with a history of acute and chronic pancreatitis who was last seen here yesterday for the same complaint and discharged home after given oral medications in the ED. They were unable to obtain IV access. Patient states he has had ongoing abdominal pain for the past month and right-sided back pain with radiation down his right leg for the past several weeks. He states he is able to ambulate but with pain. He denies any bowel or bladder incontinence, saddle anesthesia. He denies any fever. He does admit to nausea but denies any vomiting. Related Data Home Medications Medication Instructions Recorded Confirmed Creon 1 cap PO AC & HS #120 cap 01/28/20 08/18/20 tamsulosin 0.8 mg PO DAILY #30 cap 02/07/20 08/05/20 sucralfate [Carafate] 1 g PO BID #60 tab 04/30/20 08/05/20 finasteride 5 mg PO DAILY #30 tab 06/27/20 08/05/20 Eliquis 5 mg PO BID #60 tab 07/02/20 08/05/20 magnesium oxide 500 mg PO BID #60 cap 07/02/20 07/21/20 multivitamin [Multiple Vitamins] 1 tab PO DAILY #0 tab 07/02/20 08/05/20 thiamine mononitrate (vit B1) 100 mg PO QAM #30 tab 07/02/20 08/05/20 [Vitamin B-1 (mononitrate)] metoprolol tartrate 50 mg PO BID #60 tab 07/19/20 08/05/20 ondansetron 4 mg PO TID PRN #6 tab 07/21/20 08/05/20 pantoprazole [Protonix] 40 mg PO DAILY #30 tab 08/10/20 Previous Rx's Medication Instructions Recorded Creon 1 cap PO AC & HS #120 cap 01/28/20 tamsulosin 0.8 mg PO DAILY #30 cap 02/07/20 sucralfate [Carafate] 1 g PO BID #60 tab 04/30/20 finasteride 5 mg PO DAILY #30 tab 06/27/20 Eliquis 5 mg PO BID #60 tab 07/02/20 magnesium oxide 500 mg PO BID #60 cap 07/02/20 multivitamin [Multiple Vitamins] 1 tab PO DAILY #0 tab 07/02/20 thiamine mononitrate (vit B1) 100 mg PO QAM #30 tab 07/02/20 [Vitamin B-1 (mononitrate)] metoprolol tartrate 50 mg PO BID #60 tab 07/19/20 ondansetron 4 mg PO TID PRN #6 tab 07/21/20 pantoprazole [Protonix] 40 mg PO DAILY #30 tab 08/10/20 Allergies Allergy/AdvReac Type Severity Reaction Status Date / Time Opioids - Morphine Analogues Allergy Mild urticaria Verified 08/05/20 16:14 Penicillins Allergy Unverified 08/05/20 16:13 General Stated Complaint: Abd Prob DMITRI: 3 Review of Systems <Emi Diane DO - Last Filed: 08/19/20 14:57> All systems reviewed & are unremarkable except as noted in HPI and below Constitutional Constitutional: Reports as per HPI, Denies chills and Denies fever(s) Eyes Eyes: Denies blurry vision ENT Ears, Nose, Mouth, and Throat: Denies dizziness, Denies sore throat and Denies throat swelling Cardiovascular Cardiovascular: Denies chest pain and Denies dyspnea Respiratory Respiratory: Denies cough and Denies dyspnea Gastrointestinal Gastrointestinal: Reports abdominal pain, Denies diarrhea and Denies vomiting Genitourinary Genitourinary: Denies hematuria and Denies dysuria Musculoskeletal Musculoskeletal: Reports back pain and Denies numbness Integumentary/Breasts Skin/Breast: Denies lesions and Denies rash Neurologic Neurologic: Denies dizziness, Denies localized weakness and Denies numbness Allergic/Immunologic Allergic/Immunologic: Denies throat swelling PFSH <Emi Diane DO - Last Filed: 08/19/20 14:57> Medical History Acute UTI Alcohol withdrawal Alcoholic gastritis Alcoholism /alcohol abuse ARDS (adult respiratory distress syndrome) Aspiration pneumonia COVID-19 ruled out by laboratory testing Enterocolitis Fever Ground glass opacity present on imaging of lung HTN (hypertension) Hx of hyperlipidemia Hypokalemia Hypomagnesemia Myocardial infarction x 2 Pancreatitis Pancreatitis, chronic Pneumonia Presence of pancreatic duct stent (~01/2018) [place] Retention of urine Septal myocardial infarction (01/18/20) probably old, [facility] records Urinary retention Surgical History S/P ERCP (~01/2018) Sean Sears Family History Mother Alcohol abuse Father Alcohol abuse Social History Smoking/Tobacco Use Status: Current every day Tobacco Type: cigarettes Smoking packs per day: 1 Smoking cigarettes per day: 20.0 Smoking risk assessment performed?: Yes Alcohol Intake: current Alcohol Intake frequency: 3 or more drinks per day Alcohol type: beer Drug use: Occasionally Substance use type: marijuana Housing: apartment Do you feel safe at home: Yes Do you feel safe in your relationship?: Yes Exam <Emi Diane DO - Last Filed: 08/19/20 14:57> Const General: cooperative, no acute distress and disheveled Orientation: alert, awake and oriented x3 HENMT Head: normal to inspection Face and sinus: normal facial exam Eyes General: appearance normal, both eyes and all related structures EOM: EOM intact bilaterally Neck Neck: normal visual inspection and No submandibular swelling Lymphatic: no lymphadenopathy noted Chest Chest: normal inspection of the chest and no tenderness Resp Effort & Inspection: normal respiratory effort and able to speak in complete sentences Auscultation: clear to auscultation bilaterally Cardio Rate: regular rate Rhythm: regular rhythm GI Inspection: normal to inspection Palpation: soft, not firm, not rigid and tender (Diffuse) Auscultation: normal bowel sounds Back/Spine/Pelvis Thoracic/Lumbar Spine: thoracic and lumbar spine normal to inspection Pelvis: no pain with anterior-posterior compression Skin General skin exam: no rashes or lesions noted Neuro General: patient alert, patient awake and patient oriented x3 Cognition: normal cognition Speech: speech normal Motor: muscle tone normal throughout Sensory Exam: no sensory deficits noted DTR's: Rt Patellar: 0, Lt Patellar: 0, Rt Ankle: 0 and Lt Ankle: 0 Plantar Reflexes: Equivocal: bilateral (negative babinski b/l ) Extrem General: normal to inspection, full ROM, capillary refill normal, no calf tenderness bilaterally and no edema Other: B/L DP/PT pulses intact. Psych Appearance: grossly normal Mental Status: mental status grossly normal Speech and Movement: speech and movement normal Affect: normal affect Course <Emi Kapadia Brucedoreen, DO - Last Filed: 08/19/20 14:57> Vital Signs Vital signs: Vital Signs Temperature 99.3 F 08/18/20 18:53 Pulse 108 H 08/18/20 18:53 Respiratory Rate 16 08/18/20 18:53 Blood Pressure 120/71 08/18/20 18:53 Pulse Oximetry 97 08/18/20 18:53 Temperature 99.3 F 08/18/20 18:53 Temperature Source Tympanic 08/18/20 18:53 Pulse 108 H 08/18/20 18:53 Respiratory Rate 16 08/18/20 18:53 Respiratory Effort Non-Labored 08/18/20 19:01 Blood Pressure 120/71 08/18/20 18:53 Pulse Oximetry 97 08/18/20 18:53 Oxygen Delivery Method Room Air 08/18/20 18:53 Oxygen Flow Rate 0 08/18/20 18:53 Pain Level 10 08/18/20 18:53 Comment 08/18/20 18:53 Lab/Test Results Lab/Test Results: Laboratory Tests Range/Units 08/18/20 19:14 WBC (4.4-10.8) 10^3/uL 4.35 L RBC (4.36-5.78) 10^6/uL 4.20 L Hgb (13.5-17.5) g/dL 13.6 Hct (40.0-50.0) % 41.4 MCV (80-95) fL 98.6 H MCH (27.0-33.0) pg 32.4 MCHC (32.0-36.0) % 32.9 RDW (11.8-14.1) % 13.9 Plt Count (130-400) 10^3/uL 302 MPV (8.0-11.0) fL 9.4 Immature Gran % 0.5 Neutrophils % 30.4 Lymphocytes % 52.0 Monocytes % 10.6 Eosinophils % 5.1 Basophils % 1.4 Nucleated RBC % % 0 Absolute Neutrophils (1.2-6.7) 10^3/uL 1.32 Absolute Lymphocytes (1.2-3.4) 10^3/uL 2.26 Absolute Monocytes (0.1-0.8) 10^3/uL 0.46 Absolute Eosinophils (0.0-0.7) 10^3/uL 0.22 Absolute Basophils (0.0-0.2) 10^3/uL 0.06 Sign Out <Emi Diane DO - Last Filed: 08/19/20 14:57> Sign Out Data: Sign Out Comment: Reassess after meds and is able to obtain an IV, IV fluids. Attempt to p.o. challenge and ambulate. Last updated by Emi Diane DO at 08/18/20 19:58
[2020-08-18 19:59] LABS: ALT 28 U/L (16-63); AST 34 U/L (15-37); Albumin 2.9 g/dL (3.4-5.0); Alkaline Phosphatase 87 U/L (46-116); Anion Gap 15.2 mmol/L (3-11); BUN 5 mg/dL (7-18); Bilirubin, Total 0.2 mg/dL (0.2-1.0); CO2 21.8 mmol/L (21.0-32.0); CREATININE 0.8 mg/dL (0.70-1.30); Calcium 8.1 mg/dL (8.5-10.1); Chloride 110 mmol/L (98-107); Glucose 130 mg/dL (74-106); Lipase 311 U/L (73-393); Potassium 3.5 mmol/L (3.5-5.1); Sodium 147 mmol/L (136-145); Total Protein 6.9 g/dL (6.4-8.2)
[2020-08-18] MEDS: Normal Saline 1,000 ML 1000 ML IV (20:31)
[2020-08-18] MEDS: Ondansetron O.D.T. 4 MG TABEF PO (20:32)
[2020-08-18] MEDS: Sucralfate 1 GM TAB PO (20:36)
[2020-08-18] MEDS: Acetaminophen 325 MG TAB 650 MG PO (20:36)
[2020-08-18] MEDS: Dexamethasone 10 MG/ML VIAL PO (20:38)
== END 2020-08-18 21:05 | disposition home or self-care (01) ==
PROVIDERS: Physician Assistant; Emergency Provider Emergency Medicine
DX: R10.9 Unspecified abdominal pain (principal); G89.29 Other chronic pain
CPT/HCPCS: 36415; 80053; 83690; 96360; 99284; 85025; 99283; J1100

== ENCOUNTER 2020-08-22 12:19 | Emergency (ER) | payer MEDICAID, SELFPAY ==
--- NOTE | 2020-08-22 12:18 | ED.GENADUL_ITS ---
Discharge Plan Disposition Patient Disposition: HOME Condition: Improving Discharge Details Clinical Impression: Chronic abdominal pain Primary Care Provider: Unknown,Unknown ED Provider: Emi Diane Home Meds and New Rx's Prescriptions: Continued Creon 12,000-38,000 -60,000 unit capsule,delayed release(DR/EC) 1 cap PO AC & HS Qty: 120 RF: 0 tamsulosin 0.4 mg Capsule 0.8 mg PO DAILY Qty: 30 RF: 0 sucralfate [Carafate] 1 gram tablet 1 g PO BID Qty: 60 RF: 0 finasteride 5 mg Tablet 5 mg PO DAILY Qty: 30 RF: 0 metoprolol tartrate 25 mg Tablet 50 mg PO BID Qty: 60 RF: 0 multivitamin [Multiple Vitamins] Tablet 1 tab PO DAILY Qty: 0 RF: 0 thiamine mononitrate (vit B1) [Vitamin B-1 (mononitrate)] 100 mg Tablet 100 mg PO QAM Qty: 30 RF: 0 Eliquis 5 mg tablet 5 mg PO BID Qty: 60 RF: 0 magnesium oxide 500 mg capsule 500 mg PO BID Qty: 60 RF: 0 ondansetron 4 mg tablet,disintegrating 4 mg PO TID PRN (Reason: nausea and vomiting) Qty: 6 RF: 0 pantoprazole [Protonix] 40 mg tablet,delayed release (DR/EC) 40 mg PO DAILY Qty: 30 RF: 0 Discharge Instructions Instructions: Acute Nausea and Vomiting (ED), Chronic Abdominal Pain (ED) Additional Instructions: Follow-up with your scheduled appointment for your endoscopic ultrasound at [facility] on 09/11/2020 at 7:45 AM. Take the Zofran as needed and directed for nausea and vomiting. Drink plenty of fluids and get plenty of rest. Refrain from excessive alcohol use as this can cause or worsen nausea, vomiting or abdominal pain. You can contact your promotional representative from the [place] chronic care initiative Nicole Manley at [phone] (office), (cell) for assistance with your medical knee Discharge Data Discharge Date/Time-TO BE ENTERED AT DEPARTURE: 08/22/20 13:44 Medical Decision Making 60-year-old male with a history of chronic alcohol abuse, chronic pancreatitis, well-known to the emergency department with multiple ED visits for complaints of abdominal pain and vomiting, last seen here 4 days ago for the same complaint presents here today for abdominal pain and vomiting. Patient was admitted here a few weeks ago for abdominal pain and noted to have an Abdominal MRI which noted 1. Extrahepatic biliary ductal dilatation and distention of the gallbladder which has developed since the prior examination from 07/01/2020. A small mass or obstructing stone near the ampulla cannot be excluded. 2. Resolution of the peripancreatic fluid collection. 3. Atrophy of the body and tail of the pancreas. 4. Stable dilatation of the pancreatic duct. He was advised to follow-up with [facility] for an outpatient ERCP. Review of [place] summary notes that this had been scheduled, but review of [facility] records noted that they have been unable to contact patient. A telephone encounter note from [facility] noted that he attempted to contact him yesterday but was unable to reach him. Discussed with care management note that patient was given additional minutes to his cell phone through [facility]. This was discussed with patient in the room he states he does not have a cell phone but has only a landline and has not been home at times. Care management will attempt to make this appointment at bedside for patient Patient appears at his baseline. Heart rate 110s. He is afebrile and appears nontoxic. Will check screening labs, give a dose of IV Tylenol and Zofran and reassess. Labs reviewed. Normal white blood cell count. Potassium 3.1, will replete. Lipase within normal limits. Patient feels better and he is requesting to go home. Care management was able to make an appointment with [facility] for his endoscopic ultrasound on 09/11/2020 at 7:45 AM. Pt requested to leave. He left prior to receiving his discharge paperwork. We will mail his d/c instructions and care management will f/u with him regarding his 09/11 [facility] appt and to confirm his ride for this. Medical Records Medical records reviewed: Yes I reviewed the patient's medical records. Lab Data Lab results reviewed: Yes I reviewed the patient's lab results. Labs: Laboratory Tests Range/Units 08/22/20 08/22/20 12:32 12:32 WBC (4.4-10.8) 10^3/uL 6.56 RBC (4.36-5.78) 10^6/uL 4.43 Hgb (13.5-17.5) g/dL 14.1 Hct (40.0-50.0) % 42.5 MCV (80-95) fL 95.9 H MCH (27.0-33.0) pg 31.8 MCHC (32.0-36.0) % 33.2 RDW (11.8-14.1) % 13.8 Plt Count (130-400) 10^3/uL 294 MPV (8.0-11.0) fL 9.3 Immature Gran % 0.3 Neutrophils % 47.6 Lymphocytes % 42.8 Monocytes % 7.0 Eosinophils % 1.4 Basophils % 0.9 Nucleated RBC % % 0 Absolute Neutrophils (1.2-6.7) 10^3/uL 3.12 Absolute Lymphocytes (1.2-3.4) 10^3/uL 2.81 Absolute Monocytes (0.1-0.8) 10^3/uL 0.46 Absolute Eosinophils (0.0-0.7) 10^3/uL 0.09 Absolute Basophils (0.0-0.2) 10^3/uL 0.06 Sodium (136-145) mmol/L 144 Potassium (3.5-5.1) mmol/L 3.1 L Chloride (98-107) mmol/L 110 H Carbon Dioxide (21.0-32.0) mmol/L 21.6 Anion Gap (3-11) mmol/L 12.4 H BUN (7-18) mg/dL 6 L Creatinine (0.70-1.30) mg/dL 0.7 Estimated GFR/1.73 m2 (mL/min/1.73m2) >= 60.00 Glucose (74-106) mg/dL 126 H Calcium (8.5-10.1) mg/dL 8.0 L Total Bilirubin (0.2-1.0) mg/dL 0.4 AST (15-37) U/L 21 ALT (16-63) U/L 22 Alkaline Phosphatase (46-116) U/L 81 Total Protein (6.4-8.2) g/dL 6.9 Albumin (3.4-5.0) g/dL 3.1 L Lipase (73-393) U/L 357 HPI General Mode of arrival: EMS . Date/Time Provider Initiated Documentation: 08/22/20 12:27 . Limitations to Documentation: no limitations . Information obtained by: patient . HPI Narrative: Patient is a 60-year-old male with a history of chronic alcohol abuse, pancreatitis, well-known to the emergency department with multiple ED visits for complaints of abdominal pain and vomiting presents to the ED with complaint of abdominal pain and vomiting today. He states his pain feels consistent with his usual pancreatitis. He states he vomited twice which is mainly fluid and bile. He did he denies any fever, hematemesis. Related Data Home Medications Medication Instructions Recorded Confirmed Creon 1 cap PO AC & HS #120 cap 01/28/20 08/22/20 tamsulosin 0.8 mg PO DAILY #30 cap 02/07/20 08/22/20 sucralfate [Carafate] 1 g PO BID #60 tab 04/30/20 08/22/20 finasteride 5 mg PO DAILY #30 tab 06/27/20 08/22/20 Eliquis 5 mg PO BID #60 tab 07/02/20 08/22/20 magnesium oxide 500 mg PO BID #60 cap 07/02/20 08/22/20 multivitamin [Multiple Vitamins] 1 tab PO DAILY #0 tab 07/02/20 08/22/20 thiamine mononitrate (vit B1) 100 mg PO QAM #30 tab 07/02/20 08/22/20 [Vitamin B-1 (mononitrate)] metoprolol tartrate 50 mg PO BID #60 tab 07/19/20 08/22/20 ondansetron 4 mg PO TID PRN #6 tab 07/21/20 08/22/20 pantoprazole [Protonix] 40 mg PO DAILY #30 tab 08/10/20 08/22/20 Previous Rx's Medication Instructions Recorded Creon 1 cap PO AC & HS #120 cap 01/28/20 tamsulosin 0.8 mg PO DAILY #30 cap 02/07/20 sucralfate [Carafate] 1 g PO BID #60 tab 04/30/20 finasteride 5 mg PO DAILY #30 tab 06/27/20 Eliquis 5 mg PO BID #60 tab 07/02/20 magnesium oxide 500 mg PO BID #60 cap 07/02/20 multivitamin [Multiple Vitamins] 1 tab PO DAILY #0 tab 07/02/20 thiamine mononitrate (vit B1) 100 mg PO QAM #30 tab 07/02/20 [Vitamin B-1 (mononitrate)] metoprolol tartrate 50 mg PO BID #60 tab 07/19/20 ondansetron 4 mg PO TID PRN #6 tab 07/21/20 pantoprazole [Protonix] 40 mg PO DAILY #30 tab 08/10/20 Allergies Allergy/AdvReac Type Severity Reaction Status Date / Time Opioids - Morphine Analogues Allergy Mild urticaria Verified 08/22/20 12:26 Penicillins Allergy Unverified 08/22/20 12:26 General DMITRI: 3 Review of Systems All systems reviewed & are unremarkable except as noted in HPI and below Constitutional Constitutional: Reports as per HPI, Denies chills and Denies fever(s) Eyes Eyes: Denies blurry vision ENT Ears, Nose, Mouth, and Throat: Denies dizziness, Denies sore throat and Denies throat swelling Cardiovascular Cardiovascular: Denies chest pain and Denies dyspnea Respiratory Respiratory: Denies cough and Denies dyspnea Gastrointestinal Gastrointestinal: Reports abdominal pain, Denies diarrhea and Reports vomiting Genitourinary Genitourinary: Denies hematuria and Denies dysuria Musculoskeletal Musculoskeletal: Denies back pain and Denies numbness Integumentary/Breasts Skin/Breast: Denies lesions and Denies rash Neurologic Neurologic: Denies dizziness, Denies localized weakness and Denies numbness Allergic/Immunologic Allergic/Immunologic: Denies throat swelling [facility] Medical History Acute UTI Alcohol withdrawal Alcoholic gastritis Alcoholism /alcohol abuse ARDS (adult respiratory distress syndrome) Aspiration pneumonia COVID-19 ruled out by laboratory testing Enterocolitis Fever Ground glass opacity present on imaging of lung HTN (hypertension) Hx of hyperlipidemia Hypokalemia Hypomagnesemia Myocardial infarction x 2 Pancreatitis Pancreatitis, chronic Pneumonia Presence of pancreatic duct stent (~01/2018) Steffanie Sears. Retention of urine Septal myocardial infarction (01/18/20) probably old, [facility] records Urinary retention Surgical History S/P ERCP (~01/2018) Steffanie Sears. Family History Mother Alcohol abuse Father Alcohol abuse Social History Smoking/Tobacco Use Status: Current every day Tobacco Type: cigarettes Smoking packs per day: 1 Smoking cigarettes per day: 20.0 Smoking risk assessment performed?: Yes Alcohol Intake: current Alcohol Intake frequency: 3 or more drinks per day Alcohol type: beer Drug use: Occasionally Substance use type: marijuana Housing: apartment Do you feel safe at home: Yes Do you feel safe in your relationship?: Yes Exam Const General: cooperative, no acute distress and disheveled Orientation: alert, awake and oriented x3 HENMT Head: normal to inspection Face and sinus: normal facial exam Eyes General: appearance normal, both eyes and all related structures Pupils: PERRL EOM: EOM intact bilaterally Neck Neck: normal visual inspection and No submandibular swelling Lymphatic: no lymphadenopathy noted Chest Chest: normal inspection of the chest and no tenderness Resp Effort & Inspection: normal respiratory effort and able to speak in complete sentences Auscultation: clear to auscultation bilaterally Cardio Rate: regular rate Rhythm: regular rhythm GI Inspection: normal to inspection Palpation: soft, not firm, not rigid and nontender Auscultation: normal bowel sounds Skin General skin exam: no rashes or lesions noted Neuro General: patient alert, patient awake and patient oriented x3 Cognition: normal cognition Speech: speech normal Motor: muscle tone normal throughout Sensory Exam: no sensory deficits noted Extrem General: normal to inspection, full ROM, capillary refill normal, no calf tenderness bilaterally and no edema Psych Appearance: grossly normal Mental Status: mental status grossly normal Speech and Movement: speech and movement normal Affect: normal affect
[2020-08-22 12:20] VITALS: BP 112/59; PULSE 113; RESP 16; TEMP 36.7; O2SAT 98
[2020-08-22 12:40] LABS: Abs Immature Grans 0.02 10^3/uL (0.0-0.06); Absolute Basophil Count 0.06 10^3/uL (0.0-0.2); Absolute Eosinophil Count 0.09 10^3/uL (0.0-0.7); Absolute Lymphocyte Count 2.81 10^3/uL (1.2-3.4); Absolute Monocyte Count 0.46 10^3/uL (0.1-0.8); Absolute Neutrophil Count 3.12 10^3/uL (1.2-6.7); Basophils % 0.9; Eosinophils % 1.4; HCT 42.5 % (40.0-50.0); HGB 14.1 g/dL (13.5-17.5); Immature Grans % 0.3; Lymphocytes % 42.8; MCH 31.8 pg (27.0-33.0); MCHC 33.2 % (32.0-36.0); MCV 95.9 fL (80-95); MPV 9.3 fL (8.0-11.0); Neutrophils % 47.6; Nucleated RBC 0 %; Platelet Count 294 10^3/uL (130-400); RBC 4.43 10^6/uL (4.36-5.78); RDW 13.8 % (11.8-14.1); RDW-SD 49.1 fL; WBC 6.56 10^3/uL (4.4-10.8)
[2020-08-22] MEDS: ACETAMINOPHEN 1,000 MG/100 ML BTL 400 MG IVPB (12:42)
[2020-08-22] MEDS: Normal Saline 500 ML IV (12:42)
[2020-08-22] MEDS: Ondansetron 4 MG/2 ML VIAL IVP (12:42)
[2020-08-22 12:54] LABS: ALT 22 U/L (16-63); AST 21 U/L (15-37); Albumin 3.1 g/dL (3.4-5.0); Alkaline Phosphatase 81 U/L (46-116); Anion Gap 12.4 mmol/L (3-11); BUN 6 mg/dL (7-18); Bilirubin, Total 0.4 mg/dL (0.2-1.0); CO2 21.6 mmol/L (21.0-32.0); CREATININE 0.7 mg/dL (0.70-1.30); Chloride 110 mmol/L (98-107); Glucose 126 mg/dL (74-106); Lipase 357 U/L (73-393); Potassium 3.1 mmol/L (3.5-5.1); Sodium 144 mmol/L (136-145); Total Protein 6.9 g/dL (6.4-8.2)
--- NOTE | 2020-08-22 17:47 | PDOC.ERCMPRO ---
- If Service Date Differs Date of service: 08/22/20 Time of Service: 17:47 Care Management Progress Note Juan Jose presents in the ED for abdominal pain. MARY ANN meets with him to help him set up an appointment at [facility] for an ERCP procedure. The appointment is scheduled for 7:45 am on September 11, 2020 on the fourth floor at 4T. [facility] is arranging transportation to and from the appointment for Juan Jose. CM inquires about the phone [employer] gave him at last inpatient admission, as several individuals have tried contacting him by telephone and have been unable to reach him since his discharge. Juan Jose advises that he was scared of the phone so he threw it away. When MARY ANN asks what about the phone scared him, he replies I'm 60 years old. A lot of things scare me. I'm feeling better now. I want to go home. Juan Jose left shortly thereafter without his discharge paperwork.
== END 2020-08-22 13:44 | disposition home or self-care (01) ==
PROVIDERS: Emergency Provider Physician Assistant
DX: R10.33 Periumbilical pain (principal); G89.29 Other chronic pain; R11.2 Nausea with vomiting, unspecified; F10.10 Alcohol abuse, uncomplicated
CPT/HCPCS: 36415; 80053; 83690; 96361; 96374; 96375; 99284; 85025; J0131; J2405

== ENCOUNTER 2020-08-26 16:57 | Emergency (ER) | payer MEDICAID, SELFPAY ==
[2020-08-26] VITALS (12 sets, daily range): BP systolic 127–154; BP diastolic 72–115; PULSE 92–106; RESP 12–23; TEMP 37.4; O2SAT 94–98
--- NOTE | 2020-08-26 17:22 | W.ED.GENAD ---
Discharge Plan Disposition Patient Disposition: AGAINST MEDICAL ADVICE Discharge Details Clinical Impression: Alcohol use disorder, Chronic alcoholic pancreatitis Primary Care Provider: Unknown,Unknown ED Provider: Todd Brothers Home Meds and New Rx's Prescriptions: No Action Creon 12,000-38,000 -60,000 unit capsule,delayed release(DR/EC) 1 cap PO AC & HS Qty: 120 RF: 0 tamsulosin 0.4 mg Capsule 0.8 mg PO DAILY Qty: 30 RF: 0 sucralfate [Carafate] 1 gram tablet 1 g PO BID Qty: 60 RF: 0 finasteride 5 mg Tablet 5 mg PO DAILY Qty: 30 RF: 0 metoprolol tartrate 25 mg Tablet 50 mg PO BID Qty: 60 RF: 0 multivitamin [Multiple Vitamins] Tablet 1 tab PO DAILY Qty: 0 RF: 0 thiamine mononitrate (vit B1) [Vitamin B-1 (mononitrate)] 100 mg Tablet 100 mg PO QAM Qty: 30 RF: 0 Eliquis 5 mg tablet 5 mg PO BID Qty: 60 RF: 0 magnesium oxide 500 mg capsule 500 mg PO BID Qty: 60 RF: 0 ondansetron 4 mg tablet,disintegrating 4 mg PO TID PRN (Reason: nausea and vomiting) Qty: 6 RF: 0 pantoprazole [Protonix] 40 mg tablet,delayed release (DR/EC) 40 mg PO DAILY Qty: 30 RF: 0 Discharge Instructions Instructions: Abuse of Alcohol (ED), Against Medical Advice (ED) Additional Instructions: Additional diagnostic testing including CAT scan of your abdomen and pelvis was recommended. You has refused this testing and or leaving AGAINST MEDICAL ADVICE. Please return to the emergency department at any time for further work-up and treatment. Please follow-up with your primary care physician and gastroenterology as soon as possible. Discharge Data Discharge Date/Time-TO BE ENTERED AT DEPARTURE: 08/26/20 19:24 Medical Decision Making [id number]--50-year-old male with history of alcohol use disorder, chronic alcohol abuse, chronic pancreatitis, well-known to the emergency department with multiple ED visits for complaints of abdominal pain and vomiting, last seen here 4 days ago and previously seen in the ED 4 days prior to that for the same complaint presents here today for abdominal pain. Pain is consistent with chronic pancreatitis. Patient has outpatient ERCP scheduled as recommended by [facility]ology. Patient has allergy listed to opioids which include urticaria. Tylenol and NSAIDs contraindicated. I will give subdissociative dose of ketamine. 1835 --labs reviewed and lipase is normal. No leukocytosis. AST only mildly elevated with normal bilirubin and normal ALT. Patient was reassessed and pain had improved, now nauseous. I offered additional antiemetic and he declined. I recommended we proceed to CT the abdomen pelvis given prior diagnostic imaging results to assess for any changes and patient refused additional diagnostics. I had a discussion with the patient about my diagnostic/treatment plan. Patient declines plan and wishes to leave against medical advise -he does not want to stay for additional diagnostics. I reiterated my concerns to the patient and explained the risks of leaving prior to completion of workup and treatment. I specifically emphasized the possibility of life-threatening or lifestyle modifying disease that would not be appropriately treated if they leave. Patient verbalized understanding of my concerns and the potential for life threatening or lifestyle modifying disease. Patient has capacity to make informed decision. I recommended that the patient follow-up with primary care physician and gastroenterology SHILA or return to the Emergency Department at any time for further treatment. HPI General Mode of arrival: ambulatory. Date/Time Provider Initiated Documentation: 08/26/20 17:01. Limitations to Documentation: no limitations. Information obtained by: patient. HPI Narrative: 60-year-old male with history of alcohol use disorder and pancreatitis, here with chief complaint of abdominal pain. Patient notes pain mid abdomen persistent over the past few days. Pain is constant and severe. No modifiers. He notes he has been drinking beer to try to treat the pain. He is otherwise not taking any analgesics. He was recently hospitalized and discharged with plan to follow-up at [facility], subsequently presented to the emergency department on 08/22 for abdominal pain and was again referred to follow-up with [facility]. He has not yet followed up but does have scheduled follow-up this week. Related Data Home Medications Medication Instructions Recorded Confirmed Creon 1 cap PO AC & HS #120 cap 01/28/20 08/26/20 tamsulosin 0.8 mg PO DAILY #30 cap 02/07/20 08/26/20 sucralfate [Carafate] 1 g PO BID #60 tab 04/30/20 08/26/20 finasteride 5 mg PO DAILY #30 tab 06/27/20 08/26/20 Eliquis 5 mg PO BID #60 tab 07/02/20 08/26/20 magnesium oxide 500 mg PO BID #60 cap 07/02/20 08/26/20 multivitamin [Multiple Vitamins] 1 tab PO DAILY #0 tab 07/02/20 08/26/20 thiamine mononitrate (vit B1) 100 mg PO QAM #30 tab 07/02/20 08/26/20 [Vitamin B-1 (mononitrate)] metoprolol tartrate 50 mg PO BID #60 tab 07/19/20 08/26/20 ondansetron 4 mg PO TID PRN #6 tab 07/21/20 08/26/20 pantoprazole [Protonix] 40 mg PO DAILY #30 tab 08/10/20 08/26/20 Previous Rx's Medication Instructions Recorded Creon 1 cap PO AC & HS #120 cap 01/28/20 tamsulosin 0.8 mg PO DAILY #30 cap 02/07/20 sucralfate [Carafate] 1 g PO BID #60 tab 04/30/20 finasteride 5 mg PO DAILY #30 tab 06/27/20 Eliquis 5 mg PO BID #60 tab 07/02/20 magnesium oxide 500 mg PO BID #60 cap 07/02/20 multivitamin [Multiple Vitamins] 1 tab PO DAILY #0 tab 07/02/20 thiamine mononitrate (vit B1) 100 mg PO QAM #30 tab 07/02/20 [Vitamin B-1 (mononitrate)] metoprolol tartrate 50 mg PO BID #60 tab 07/19/20 ondansetron 4 mg PO TID PRN #6 tab 07/21/20 pantoprazole [Protonix] 40 mg PO DAILY #30 tab 08/10/20 Allergies Allergy/AdvReac Type Severity Reaction Status Date / Time Opioids - Morphine Analogues Allergy Mild urticaria Verified 08/26/20 17:04 Penicillins Allergy Unverified 08/26/20 17:04 General Stated Complaint: Abd Prob DMITRI: 3 Review of Systems All systems reviewed & are unremarkable except as noted in HPI and below Constitutional Constitutional: Denies fever(s) Gastrointestinal Gastrointestinal: Reports abdominal pain and Reports diarrhea PFSH Medical History Acute UTI Alcohol withdrawal Alcoholic gastritis Alcoholism /alcohol abuse ARDS (adult respiratory distress syndrome) Aspiration pneumonia COVID-19 ruled out by laboratory testing Enterocolitis Fever Ground glass opacity present on imaging of lung HTN (hypertension) Hx of hyperlipidemia Hypokalemia Hypomagnesemia Myocardial infarction x 2 Pancreatitis Pancreatitis, chronic Pneumonia Presence of pancreatic duct stent (~01/2018) Steffanie Sears. Retention of urine Septal myocardial infarction (01/18/20) probably old, [facility] records Urinary retention Surgical History S/P ERCP (~01/2018) Orion N.Latoya. Family History Mother Alcohol abuse Father Alcohol abuse Social History Smoking/Tobacco Use Status: Current every day Tobacco Type: cigarettes Smoking packs per day: 1 Smoking cigarettes per day: 20.0 Smoking risk assessment performed?: Yes Alcohol Intake: current Alcohol Intake frequency: 3 or more drinks per day Alcohol type: beer Drug use: Never Substance use type: marijuana Housing: apartment Do you feel safe at home: Yes Do you feel safe in your relationship?: Yes Exam Const General: cooperative and no acute distress HENMT Mouth: moist mucous membranes Eyes Conjunctivae: normal conjunctivae Sclera: normal sclerae Neck Neck: trachea midline and supple Resp Auscultation: clear to auscultation bilaterally, no rales, no rhonchi and no wheezes Cardio Rate: not tachycardic Rhythm: regular rhythm GI Palpation: soft, not firm, no guarding, no masses and not rigid Skin General skin exam: no rashes or lesions noted Neuro General: patient alert, patient awake, patient oriented x3 and tone normal Extrem General: no edema Psych Appearance: grossly normal Mental Status: mental status grossly normal Speech and Movement: speech and movement normal Course Vital Signs Vital signs: Vital Signs Temperature 37.4 C 08/26/20 16:59 Pulse 106 H 08/26/20 16:59 Respiratory Rate 23 08/26/20 16:59 Blood Pressure 154/115 H 08/26/20 16:59 Pulse Oximetry 98 08/26/20 16:59 Temperature 37.4 C 08/26/20 16:59 Pulse 106 H 08/26/20 16:59 Respiratory Rate 23 07/05/21 16:59 Respiratory Effort Non-Labored 08/26/20 16:59 Blood Pressure 154/115 H 08/26/20 16:59 Blood Pressure Position Supine 08/26/20 16:59 Pulse Oximetry 98 08/26/20 16:59 Oxygen Delivery Method Room Air 08/26/20 16:59 Oxygen Flow Rate 0 08/26/20 16:59 Pain Level 10 08/26/20 16:59
[2020-08-26 17:29] LABS: Abs Immature Grans 0.01 10^3/uL (0.0-0.06); Absolute Basophil Count 0.04 10^3/uL (0.0-0.2); Absolute Eosinophil Count 0.16 10^3/uL (0.0-0.7); Absolute Lymphocyte Count 1.93 10^3/uL (1.2-3.4); Absolute Monocyte Count 0.51 10^3/uL (0.1-0.8); Absolute Neutrophil Count 1.83 10^3/uL (1.2-6.7); Basophils % 0.9; Eosinophils % 3.6; HCT 40.3 % (40.0-50.0); HGB 13.4 g/dL (13.5-17.5); Immature Grans % 0.2; Lymphocytes % 43.1; MCH 31.8 pg (27.0-33.0); MCHC 33.3 % (32.0-36.0); MCV 95.7 fL (80-95); MPV 8.9 fL (8.0-11.0); Monocytes % 11.4; Neutrophils % 40.8; Nucleated RBC 0 %; Platelet Count 261 10^3/uL (130-400); RBC 4.21 10^6/uL (4.36-5.78); RDW 13.9 % (11.8-14.1); RDW-SD 49.1 fL; WBC 4.48 10^3/uL (4.4-10.8)
[2020-08-26] MEDS: Lactated Ringers 1,000 ML 1000 ML IV (17:29)
[2020-08-26] MEDS: Ketamine 500 MG/10 ML VIAL 14 MG IVP (17:35)
[2020-08-26 17:45] LABS: ALT 29 U/L (16-63); AST 38 U/L (15-37); Albumin 2.8 g/dL (3.4-5.0); Alkaline Phosphatase 118 U/L (46-116); Anion Gap 11.1 mmol/L (3-11); BUN 3 mg/dL (7-18); Bilirubin, Total 0.4 mg/dL (0.2-1.0); CO2 22.9 mmol/L (21.0-32.0); CREATININE 0.6 mg/dL (0.70-1.30); Calcium 7.9 mg/dL (8.5-10.1); Chloride 108 mmol/L (98-107); Glucose 113 mg/dL (74-106); Lipase 378 U/L (73-393); Potassium 3.4 mmol/L (3.5-5.1); Sodium 142 mmol/L (136-145); Total Protein 6.4 g/dL (6.4-8.2)
== END 2020-08-26 19:24 | disposition left against medical advice (07) ==
PROVIDERS: Emergency Provider Student in an Organized Health Care Education/Training Program
DX: K86.0 Alcohol-induced chronic pancreatitis (principal); F10.20 Alcohol dependence, uncomplicated; Z53.29 Procedure and treatment not carried out because of patient's decision for other reasons
CPT/HCPCS: 36415; 80053; 83690; 96361; 96374; 99283; 85025

== ENCOUNTER 2020-09-03 00:27 | Inpatient (IN) | payer MEDICAID, SELFPAY ==
--- NOTE | 2020-09-03 00:27 | ED.GENADUL_ITS ---
Discharge Plan Disposition Patient Disposition: [facility] INPATIENT Condition: Poor Discharge Details Clinical Impression: Acute on chronic pancreatitis Admit Date/Time: 09/03/20 04:05 Admit Provider: Alejo Larson Attending Provider: Alejo Larson Primary Care Provider: Unknown,Unknown ED Provider: Jose Luis Zhong Medical Decision Making Patient presenting with recurrent abdominal pain likely related to pancreatitis. He has frequent visits and has had admissions. He is scheduled to go to [facility] for ERCP this week. He has been able to abstain from alcohol. This pain started after he tried to eat a normal meal which he typically does not do. IV established and fluids started. Typically try to avoid narcotic during his ER visit and nonsteroidals are contraindicated given that he is on Eliquis, therefore subdissociative ketamine as well as antiemetic Phenergan ordered. Laboratory studies ordered. Labs are significant for his lipase being markedly elevated to 915. Total bilirubin and alkaline phosphatase are both bumped though AST and ALT remain normal. Because of the abnormal labs CT scan is ordered. Confirms acute on chronic pancreatitis with peripancreatic edema as well as gastric and duodenal wall thickening related to pancreatitis. Case discussed with hospitalist for admission for n.p.o. status, fluids, pain control. Patient accepted for admission and has been stable here in the department. Medical Records Medical records reviewed: Yes I reviewed the patient's medical records. Lab Data Lab results reviewed: Yes I reviewed the patient's lab results. HPI General Mode of arrival: EMS . Date/Time Provider Initiated Documentation: 09/03/20 00:27 . Limitations to Documentation: no limitations . Information obtained by: patient, RN notes reviewed and old records reviewed . HPI Narrative: Patient presents to ED with abdominal pain, nausea and vomiting. Patient has history of chronic pancreatitis. He has managed to stop drinking. He is scheduled to go to [facility] for an ERCP this week. Today he ate a large meal consisted of a sub with cheese as well as soda. He has subsequently developed abdominal pain, bloating, vomiting much like previous episodes of pancreatitis. He denies any fever, shortness of breath, chest pain. He does have a chronic smoker's cough which is unchanged. Related Data Home Medications Medication Instructions Recorded Confirmed Creon 1 cap PO AC & HS #120 cap 01/28/20 09/03/20 tamsulosin 0.8 mg PO DAILY #30 cap 02/07/20 09/03/20 sucralfate [Carafate] 1 g PO BID #60 tab 04/30/20 09/03/20 finasteride 5 mg PO DAILY #30 tab 06/27/20 09/03/20 Eliquis 5 mg PO BID #60 tab 07/02/20 09/03/20 magnesium oxide 500 mg PO BID #60 cap 07/02/20 09/03/20 multivitamin [Multiple Vitamins] 1 tab PO DAILY #0 tab 07/02/20 09/03/20 thiamine mononitrate (vit B1) 100 mg PO QAM #30 tab 07/02/20 09/03/20 [Vitamin B-1 (mononitrate)] metoprolol tartrate 50 mg PO BID #60 tab 07/19/20 09/03/20 ondansetron 4 mg PO TID PRN #6 tab 07/21/20 09/03/20 pantoprazole [Protonix] 40 mg PO DAILY #30 tab 08/10/20 09/03/20 Previous Rx's Medication Instructions Recorded Creon 1 cap PO AC & HS #120 cap 01/28/20 tamsulosin 0.8 mg PO DAILY #30 cap 02/07/20 sucralfate [Carafate] 1 g PO BID #60 tab 04/30/20 finasteride 5 mg PO DAILY #30 tab 06/27/20 Eliquis 5 mg PO BID #60 tab 07/02/20 magnesium oxide 500 mg PO BID #60 cap 07/02/20 multivitamin [Multiple Vitamins] 1 tab PO DAILY #0 tab 07/02/20 thiamine mononitrate (vit B1) 100 mg PO QAM #30 tab 07/02/20 [Vitamin B-1 (mononitrate)] metoprolol tartrate 50 mg PO BID #60 tab 07/19/20 ondansetron 4 mg PO TID PRN #6 tab 07/21/20 pantoprazole [Protonix] 40 mg PO DAILY #30 tab 08/10/20 Allergies Allergy/AdvReac Type Severity Reaction Status Date / Time Opioids - Morphine Analogues Allergy Mild urticaria Verified 09/03/20 00:32 Penicillins Allergy Unverified 09/03/20 00:32 General DMITRI: 3 Review of Systems Narrative: 12/05 Review of Systems completed and is negative except as stated above in HPI (Systems reviewed: Const, Eyes, ENT, Resp, CV, GI, , MSK, Skin, Neuro) PFSH Medical History Acute UTI Alcohol withdrawal Alcoholic gastritis Alcoholism /alcohol abuse ARDS (adult respiratory distress syndrome) Aspiration pneumonia COVID-19 ruled out by laboratory testing Enterocolitis Fever Ground glass opacity present on imaging of lung HTN (hypertension) Hx of hyperlipidemia Hypokalemia Hypomagnesemia Myocardial infarction x 2 Pancreatitis Pancreatitis, chronic Pneumonia Presence of pancreatic duct stent (~01/2018) [place] Retention of urine Septal myocardial infarction (01/18/20) probably old, [facility] records Urinary retention Surgical History S/P ERCP (~01/2018) [place] Family History Mother Alcohol abuse Father Alcohol abuse Social History Smoking/Tobacco Use Status: Current every day Tobacco Type: cigarettes Smoking packs per day: 1 Smoking cigarettes per day: 20.0 Smoking risk assessment performed?: Yes Alcohol Intake: current Alcohol Intake frequency: 3 or more drinks per day Alcohol type: beer Drug use: Never Substance use type: marijuana Housing: apartment Do you feel safe at home: Yes Do you feel safe in your relationship?: Yes Exam Narrative Exam Narrative: Const: WDWN male in NAD. HEENT: NC/AT. Normal facial exam. Eyes: Normal conjunctiva and sclera. Neck: Supple. Trachea midline. Lungs: Normal respiratory effort. Lungs with few rhonchi Cor: RRR. Good radial pulses. GI: Soft, a little bloated, tender upper abdomen. Neuro: A+O x 3. Normal speech, mentation, gait. Cranial nerves II - XII grossly intact. No gross motor or sensory deficit. Ext: No C/C/E. Skin: Warm and dry without rash.
[2020-09-03 00:30] VITALS: BP 185/98; PULSE 105; RESP 16; TEMP 36.8; O2SAT 99
[2020-09-03] MEDS: Normal Saline 1,000 ML 1000 ML IV (01:00)
[2020-09-03 01:09] LABS: Abs Immature Grans 0.04 10^3/uL (0.0-0.06); Absolute Basophil Count 0.02 10^3/uL (0.0-0.2); Absolute Lymphocyte Count 0.91 10^3/uL (1.2-3.4); Absolute Monocyte Count 0.73 10^3/uL (0.1-0.8); Absolute Neutrophil Count 10.31 10^3/uL (1.2-6.7); Basophils % 0.2; HCT 44.5 % (40.0-50.0); HGB 15.3 g/dL (13.5-17.5); Immature Grans % 0.3; Lymphocytes % 7.6; MCH 32.5 pg (27.0-33.0); MCHC 34.4 % (32.0-36.0); MCV 94.5 fL (80-95); MPV 9.3 fL (8.0-11.0); Monocytes % 6.1; Neutrophils % 85.8; Nucleated RBC 0 %; Platelet Count 217 10^3/uL (130-400); RBC 4.71 10^6/uL (4.36-5.78); RDW 14.3 % (11.8-14.1); RDW-SD 49.7 fL; WBC 12.02 10^3/uL (4.4-10.8)
[2020-09-03] MEDS: Ketamine 50 MG/5 ML SYRINGE 25 MG IVP (01:11)
[2020-09-03 01:17] LABS: ALT 19 U/L (16-63); AST 30 U/L (15-37); Albumin 3.4 g/dL (3.4-5.0); Alkaline Phosphatase 156 U/L (46-116); BUN 2 mg/dL (7-18); Bilirubin, Direct 0.2 mg/dL (0.0-0.2); Bilirubin, Total 1.1 mg/dL (0.2-1.0); CREATININE 0.7 mg/dL (0.70-1.30); Calcium 8.7 mg/dL (8.5-10.1); Chloride 103 mmol/L (98-107); Glucose 158 mg/dL (74-106); Lipase 915 U/L (73-393); Magnesium 1.5 mg/dL (1.8-2.4); Potassium 3.7 mmol/L (3.5-5.1); Sodium 139 mmol/L (136-145); Total Protein 7.7 g/dL (6.4-8.2)
[2020-09-03 01:22] VITALS: BP 175/92; PULSE 103; PULSE 108; RESP 21; O2SAT 94
[2020-09-03 01:25] LABS: ETHANOL BLOOD < 3.0 mg/dL (<3)
--- NOTE | 2020-09-03 01:45 | DI.CT_ITS ---
Exam(s) CT ABDOMEN PELVIS W EXAM: CT ABDOMEN PELVIS W CLINICAL HISTORY: acute flare of chronic pancreatitis. TECHNIQUE: Imaging Protocol: Axial computed tomography images with coronal and sagittal reformatted images were created and reviewed CONTRAST MATERIAL: Intravenous: Omnipaque 350 Contrast volume:100 ml Oral: no COMPARISON: CT CT ABDOMEN PELVIS W from 08/05/2020 FINDINGS: ABDOMEN: Lung Bases: Chronic changes. Liver: Normal density. No measurable mass. Gallbladder and biliary tract: No radiopaque calculi. Gallbladder appears distended but shows no elisabet dence of wall thickening. Similar appearance to previous. Dilated pancreatic duct, not significantl y changed. No choledocholithiasis seen. Pancreas: There is mild inflammation surrounding the pancreas, consistent with pancreatitis. Pancrea tic calcifications and some pancreatic atrophy are noted, consistent with chronic pancreatitis. No P beth pancreatic collection or mass. Spleen: Normal. Kidneys: Normal size, contour and axis. No radiodense stones or obstructive uropathy. No masses seen. Adrenal glands: No masses seen. Abdominal Aorta: Abdominal portion non-dilated. Severe atherosclerotic changes. Stomach and small bowel: Mild wall thickening adjacent to the head of the pancreas. PELVIS: Bladder: Markedly distended urinary bladder, to the level of the umbilicus. No gross wall thickening . No calculi.No focal mass. Bowel: No obstruction or bowel wall thickening. Diverticulosis. Normal quantity of stool. Appendix normal. Peritoneal cavity: No ascites, collection or mesenteric inflammatory response. Bones: Degenerative disc changes. Reproductive organs: Within normal limits. Lymph nodes: Unremarkable. Impression: Mild acute pancreatitis. Evidence of chronic pancreatitis. Stable dilatation of the pancreatic duct . No ductal calcifications are visible. Distended urinary bladder without evidence of mass or wall thickening. RADIATION DOSE DELIVERED: 716.06mGy.cm Total DLP DATA REPOSITORY: All CT scans at this facility are submitted to the National Radiology Data Registry (NRDR) Dose Index Registry (DIR) with the [employer] (ACR). RADIATION OPTIMIZATION: All CT scans at this facility use at least one of these dose optimization te chniques: automated exposure control; mA and/or kV adjustment per patient size (includes targeted exa ms where dose is matched to clinical indication); or iterative reconstruction.
[2020-09-03] MEDS: MAGNESIUM SULFATE 2 GM/50 ML BAG IVPB (01:57)
[2020-09-03] MEDS: Omnipaque 350 MG/ML 100 ML BTL IJ (02:03)
[2020-09-03] MEDS: Normal Saline - Diluent 50 ML VIAL IV (02:25)
[2020-09-03] MEDS: Normal Saline Flush 10 ML SYR IVP ×5 (02:25→20:35)
--- NOTE | 2020-09-03 03:24 | W.PM.HP.N ---
Date of service: 09/03/20 Time of Service: 03:45 Assessment and Plan Assessment and plan (1) Pancreatitis: Status: Chronic Assessment and plan: Pancreatitis: NPO, IVF, prn analgesics and antiemetics. Will update when CT report in. CT: acute on chronic pancreatitis, hepatobiliary dilatation decreased. (2) Alcohol abuse: Status: Chronic Assessment and plan: Banana bag, CIWA, scheduled Librium History of Present Illness History of Present Illness Chief Complaint: abdominal pain Narrative: 60 male alcoholic with h/o acute and chronic pancreatitis. During visit last month CT and MRCP indicated hepatobiliary ductal dilatation with question obstructing mass at ampulla, is scheduled for ERCP in 3 days. At any rate comes in tonight with one day epigastric pain radiating to back along with nausea and vomiting. Came on shortly after he ate a fatty meal. 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 In ER w/u of note for white count of 2, Lipase 913 and neg EtOH; CT abdomen is pending at this time. Patient is admitted for further evaluation and management. Review of Systems All systems reviewed & are unremarkable except as noted in HPI and below PFSH Medical History Acute UTI Alcohol withdrawal Alcoholic gastritis Alcoholism /alcohol abuse ARDS (adult respiratory distress syndrome) Aspiration pneumonia COVID-19 ruled out by laboratory testing Enterocolitis Fever Ground glass opacity present on imaging of lung HTN (hypertension) Hx of hyperlipidemia Hypokalemia Hypomagnesemia Myocardial infarction x 2 Pancreatitis Pancreatitis, chronic Pneumonia Presence of pancreatic duct stent (~01/2018) [facility]. Retention of urine Septal myocardial infarction (01/18/20) probably old, [facility] records Urinary retention Surgical History S/P ERCP (~01/2018) [facility]. Family History Mother Alcohol abuse Father Alcohol abuse Social History Smoking/Tobacco Use Status: Current every day Tobacco Type: cigarettes Smoking packs per day: 1 Smoking cigarettes per day: 20.0 Smoking risk assessment performed?: Yes Alcohol Intake: current Alcohol Intake frequency: 3 or more drinks per day Alcohol type: beer Drug use: Never Substance use type: marijuana Housing: apartment Do you feel safe at home: Yes Do you feel safe in your relationship?: Yes Meds Allergies and Home Medications Allergies Allergy/AdvReac Type Severity Reaction Status Date / Time Opioids - Morphine Analogues Allergy Mild urticaria Verified 09/03/20 00:32 Penicillins Allergy Unverified 09/03/20 00:32 Home Medications Medication Instructions Recorded Confirmed Type Creon 1 cap PO AC & HS #120 cap 01/28/20 09/03/20 Rx tamsulosin 0.8 mg PO DAILY #30 cap 02/07/20 09/03/20 Rx sucralfate [Carafate] 1 g PO BID #60 tab 04/30/20 09/03/20 Rx finasteride 5 mg PO DAILY #30 tab 06/27/20 09/03/20 Rx Eliquis 5 mg PO BID #60 tab 07/02/20 09/03/20 Rx magnesium oxide 500 mg PO BID #60 cap 07/02/20 09/03/20 Rx multivitamin [Multiple Vitamins] 1 tab PO DAILY #0 tab 07/02/20 09/03/20 Rx thiamine mononitrate (vit B1) 100 mg PO QAM #30 tab 07/02/20 09/03/20 Rx [Vitamin B-1 (mononitrate)] metoprolol tartrate 50 mg PO BID #60 tab 07/19/20 09/03/20 Rx ondansetron 4 mg PO TID PRN #6 tab 07/21/20 09/03/20 Rx pantoprazole [Protonix] 40 mg PO DAILY #30 tab 08/10/20 09/03/20 Rx Exam Narrative Exam Narrative: 175/92, 103, 36.8, 21, 94% RA. HEENT atraumatic, neck supple; lungs clear; heart tachy/regular; abdomen +BS, some guarding, mod epigastric tenderness w/o rebound; extremities w/o edema; neuro Ox3, moves all 4s. Results Labs Result diagrams: 09/03/20 00:50 09/03/20 00:50 Labs: Laboratory Results - last 24 hr 09/03/20 09/03/20 09/03/20 00:50 00:50 00:50 WBC 12.02 H RBC 4.71 Hgb 15.3 Hct 44.5 MCV 94.5 MCH 32.5 MCHC 34.4 RDW 14.3 H Plt Count 217 MPV 9.3 Immature Gran % 0.3 Neutrophils % 85.8 Lymphocytes % 7.6 Monocytes % 6.1 Eosinophils % 0.0 Basophils % 0.2 Nucleated RBC % 0 Absolute Neutrophils 10.31 H Absolute Lymphocytes 0.91 L Absolute Monocytes 0.73 Absolute Eosinophils 0.00 Absolute Basophils 0.02 Sodium 139 Potassium 3.7 Chloride 103 Carbon Dioxide 20.0 L Anion Gap 16.0 H BUN 2 L Creatinine 0.7 Estimated GFR/1.73 m2 >= 60.00 Glucose 158 H Calcium 8.7 Magnesium 1.5 L Total Bilirubin 1.1 H Conjugated Bilirubin 0.2 AST 30 ALT 19 Alkaline Phosphatase 156 H Total Protein 7.7 Albumin 3.4 Lipase 915 H Ethyl Alcohol < 3.0 Last Vital Signs Temp 36.8 C 09/03/20 00:30 Pulse 103 H 09/03/20 01:22 Resp 21 09/03/20 01:22 BP 175/92 H 09/03/20 01:22 Pulse Ox 94 09/03/20 01:22
--- NOTE | 2020-09-03 04:30 | DI.VRAD_ITS ---
PROCEDURE INFORMATION: Exam: CT Abdomen And Pelvis With Contrast Exam date and time: 09/03/2020 1:53 AM Age: 60 years old Clinical indication: Pain and abnormal findings; Abnormal lab test; Elevated lipase; Abdominal pain; Patient HX: Acute flare of chronic pancreatitis TECHNIQUE: Imaging protocol: Computed tomography of the abdomen and pelvis with contrast. Radiation optimization: All CT scans at this facility use at least one of these dose optimization techniques: automated exposure control; mA and/or kV adjustment per patient size (includes targeted exams where dose is matched to clinical indication); or iterative reconstruction. Contrast material: OMNIPAQUE 350; Contrast volume: 100 ml; Contrast route: INTRAVENOUS (IV); COMPARISON: MR ABDOMEN WO 08/06/2020 7:32 AM FINDINGS: Lungs: Mild dependent basilar atelectasis. Pleural spaces: Chronic appearing basilar pleural and parenchymal changes. Liver: No enlargement or mass. Gallbladder and bile ducts: Gallbladder distended without discrete evidence of cholelithiasis. No acute cholecystitis. Common duct mildly dilated without definite choledocholithiasis. Intrahepatic biliary tract dilatation decreased from previous. Pancreas: Acute on chronic pancreatitis with pancreatic edema and peripancreatic infiltration/inflammation with unencapsulated fluid adjacent to the pancreatic head and proximal body. Increased pancreatic duct dilatation from previous. Coarse calcifications within the pancreas consistent with history of chronic pancreatitis. No organized fluid collection. No abscess or necrosis. Spleen: Normal size. No mass. Adrenal glands: No mass. No enlargement. No hemorrhage. Kidneys and ureters: No mass. No hydronephrosis. No hydroureter or ureterolithiasis. Stomach and bowel: Gastric and duodenal wall thickening consistent with gastritis/duodenitis secondary to adjacent pancreatic inflammation. No outlet obstruction. Mild proximal small-bowel paralytic ileus. Decompressed distal colon, likely cause of wall thickening. Mild diverticulosis without acute diverticulitis.. Appendix: Appears unremarkable. No evidence of appendicitis. Intraperitoneal space: No free intraperitoneal air demonstrated. Mild central mesenteric edema. No other significant free fluid. Vasculature: Aortic calcification without aneurysm, dissection or disruption. Lymph nodes: No significant lymphadenopathy demonstrated. Urinary bladder: Distended without wall thickening, mass or calculus. Reproductive: Prostate is normal size. Bones/joints: Moderate degenerative changes noted throughout the spine. No acute fracture or subluxation. Soft tissues: Small uncomplicated fat containing umbilical hernia. IMPRESSION: 1. Acute on chronic pancreatitis with pancreatic edema and peripancreatic infiltration/inflammation with unencapsulated fluid adjacent to the pancreatic head and proximal body. Increased pancreatic duct dilatation from previous. 2. Gastric and duodenal wall thickening consistent with gastritis/duodenitis with mild proximal small-bowel paralytic ileus suspected, likely secondary to adjacent pancreatic inflammation. No outlet obstruction. No mechanical obstruction or pneumatosis. No free air. 3. Additional nonemergent findings as described above. Dictated and Authenticated by: Leon Shepherd MD. Ordering:GALE Amaya MD
[2020-09-03 05:14] LABS: Source Nasal/Nares
[2020-09-03 05:20] VITALS: BP 170/65; PULSE 115; RESP 25; TEMP 36.5; O2SAT 98
[2020-09-03] MEDS: HYDROmorphone 2 MG/ML VIAL IVP ×7 (05:55→22:33)
[2020-09-03] MEDS: Pantoprazole 40 MG VIAL IVP (05:55)
[2020-09-03 06:07] LABS: COVID-19 PCR Negative (Negative)
[2020-09-03] MEDS: MAGNESIUM SULFATE 8.12 MEQ, MULTIVITAMIN 10 ML, THIAMINE 100 MG, FOLIC ACID 1 MG in Nor... 168.867 MG IV (06:41)
[2020-09-03 07:22] VITALS: BP 171/92; PULSE 102; RESP 18; TEMP 36.5; O2SAT 98
[2020-09-03] MEDS: chlordiazePOXIDE 25 MG CAP PO ×3 (07:42→20:17)
[2020-09-03] MEDS: Apixaban 5 MG TAB PO ×2 (07:42→20:17)
--- NOTE | 2020-09-03 08:24 | INITIAL_ITS ---
- If Service Date Differs Date of service: 09/03/20 Time of Service: 08:24 Care Management Initial Assess REASON FOR HOSPITALIZATION:: Pancreatitis. PAST MEDICAL HISTORY/PAST SURGICAL HISTORY:: Medical History: Acute UTI, Alcohol withdrawal, Alcoholic gastritis, Alcoholism /alcohol abuse, ARDS (adult respiratory distress syndrome),. Aspiration pneumonia, COVID-19 ruled out by laboratory testing, Enterocolitis, Fever, Ground glass opacity present on jesu ging of lung,. HTN (hypertension), Hx of hyperlipidemia, Hypokalemia, Hypomagnesemia,. Myocardial infarction x 2, Pancreatitis, chronic, Pneumonia, Presence of pancreatic duct stent (~01/2018) - [place] Retention of urine,. Septal myocardial infarction (01/18/20) - probably old, [facility] records, and. Urinary retention. Surgical History: S/P ERCP (~01/2018) - [place] [place]. PREVIOUS FUNCTIONAL STATUS/SOCIAL/FAMILY SUPPORTS:: Juan Jose, who prefers to be called Kal, lives alone in an apartment in [place]. 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 He reports that he has no friends and no family in the area. CURRENT FUNCTIONAL STATUS:: Kal is laying in bed watching television when CM co mes to meet with him. He is pleasant and easily engages in conversation. He shares he knows he needs to stop drinking as his health is deteriorating because of alcohol use. CM will continue to follow. ADVANCE DIRECTIVES:: None on file. Juan Jose has the form at home but has yet to complete it. Has patient been provided with info about the portal/API?: Yes Did the patient sign up for the portal?: No CODE STATUS:: Full Code INSURANCE COVERAGE / FINANCIAL ISSUES:: Medicaid. CURRENT HOME/COMMUNITY SERVICES/EQUIPMENT:: Juan Jose has a [facility] case management rn (Nicole Manley RN) and a Practice Nurse (Katt) through [facility]. He has a cane at home but ambulates without it. PRIMARY CARE PHYSICIAN:: Benjamin Bustillos, DO POTENTIAL DISCHARGE NEEDS:: Follow up appointment with PCP and discharge plan of care. PATIENT/FAMILY EDUCATION NEEDS:: Review of discharge instructions, limitations, and follow up plan of care, including Ask Me Three. ANTICIPATED BARRIERS TO DISCHARGE:: None identified at this time. TRANSPORTATION:: Via [facility] coordinated by MARY [facility]. PLAN:: Anticipate Juan Jose will be discharged home with no services when medically cleared by provider. He will follow up with his PCP, [facility] case management rn, Practice Nurse, and discharge plan of care as directed. Juan Jose also has a scheduled appointment at [facility] for an ERCP procedure on 09/11/20 at 7:45 am. He will be transported home by [facility] when ready. CM will continue to follow. Readmission - Within the Past 30 Days Yes or No: Y - Date of First Admission Date of 1st Admission: 08/05/20 - Date of this Admission Date of Admission: 09/03/20 This admission was: Through ED - Office Visit Since 1st Admission Have you seen your PCP in the office since discharge?: No Had an appointment Been Scheduled?: Yes Date of Scheduled Appointment: 08/16/2020 Describe barriers for scheduling or getting an appointment: No transportation and patient didn't call [facility] to set up ride. - Speicalist Appointments Have you seen any other specialist since your 1st Admission?: No - I. Interview patient and/or Family Difficulty reaching your doctor or getting an office appt?: No Have you had trouble purchasing/ or taking medication?: Yes Describe barriers fpr purchasing or taking medication: Doesn't have the money to pay co-pays. How do you take your medications and set up your pills?: Self-administers medications. Keeps his medications in the bottles they are dispensed in. Have you had trouble with getting meals at home?: No Describe your typical meals since you have been home: Hot pockets, hamburgers, and other prepared foods he can warm up in the microwave. Did you feel ready for discharge when you left the last time: No Why did you not feel ready for discharge?: I needed more support and guidance. Did you call your physician beore you came to the ED?: No How do you think you became sick enough to come back?: I ate a ham sandwich and I paid for it. - Ask the Care Team Members: What do you think caused the patient to be readmitted: Patient continues to drink alcohol and this is contributing to his chronic pancreatitis. - ED visits How many ED visits in the past 12 months: 25 - Assessment for Readmission Summary of readmission circumstances, based upon interviews: Patient continues to consume alcohol, which is aggravating his chronic pancreatitis. Patient has an ERCP procedure scheduled at [facility] on 09/11/20 at 7:45 am.
[2020-09-03] MEDS: Metoprolol 50 MG TAB PO ×2 (10:10→20:17)
[2020-09-03 11:21] VITALS: BP 153/90; PULSE 86; RESP 16; TEMP 36.5; O2SAT 97
--- NOTE | 2020-09-03 15:44 | W.PM.PROGNOT ---
Date of Service Date of service: 09/03/20 Time of Service: 15:45 Assessment and Plan Assessment and plan (1) Pancreatitis: Status: Chronic Assessment and plan: Acute on chronic pancreatitis. Maintain n.p.o. status. Aggressive IV fluid hydration. Parenteral narcotics and antiemetics. Correct electrolyte abnormalities. Continue banana bag. Continue coverage with benzodiazepines for prevention of alcohol withdrawal. Qualifiers: Chronicity: chronic Pancreatitis type: alcohol induced Qualified Code(s): K86.0 - Alcohol-induced chronic pancreatitis (2) Alcohol abuse: Status: Chronic Assessment and plan: Banana bag, CIWA, scheduled Librium Subjective Subjective Interval history since last seen: Patient still with abdominal pain but no vomiting. He was admitted with recurrent pancreatitis. Lipase 915 last night but it was not repeated this morning. Magnesium was low at 1.5 which was treated with a magnesium bolus of 2 g. Patient is currently receiving Dilaudid 0.5 mg up to 1 mg IV every 2 hours as needed he was also put on alcohol withdrawal protocol by Dr. Larson and put on scheduled doses of Librium along with as needed lorazepam. Unfortunately his metoprolol was not reordered and he was hypertensive and tachycardic this morning. That is improved since I put him back on his metoprolol. BP down to 153/90 from high of 185/98 last night. He will remain NPO for today/tonight until his pain improves and he is no longer needing parenteral narcotics. We will continue aggressive iv hydration. I did increase his hydromorphone dose to 1 to 2 mg IVP Q2h prn pain. For alcohol withdrawal prophylaxis, Dr. Larson put him on scheduled doses of librium low dos 25 mg tid and is on CIWA monitoring w/ prn lorazepam Exam Narrative Exam Narrative: Middle-aged white male lying in bed watching TV in no apparent distress. However soon as I start inquiring about his abdominal pain he says that he has awakened abdominal pain. Abdominal exam is remarkable for voluntary guarding although when I distract him the abdomen is soft and he has active bowel sounds. He has epigastric and left upper quadrant tenderness. Lungs are clear to auscultation. Extremities without edema. Heart is regular without audible murmurs Objective Last Vital Signs Temp 36.5 C 09/03/20 11:21 Pulse 86 09/03/20 11:21 Resp 16 09/03/20 11:21 BP 153/90 H 09/03/20 11:21 Pulse Ox 97 09/03/20 11:21 Laboratory Results - last 24 hr 09/03/20 09/03/20 09/03/20 00:50 00:50 00:50 WBC 12.02 H RBC 4.71 Hgb 15.3 Hct 44.5 MCV 94.5 MCH 32.5 MCHC 34.4 RDW 14.3 H Plt Count 217 MPV 9.3 Immature Gran % 0.3 Neutrophils % 85.8 Lymphocytes % 7.6 Monocytes % 6.1 Eosinophils % 0.0 Basophils % 0.2 Nucleated RBC % 0 Absolute Neutrophils 10.31 H Absolute Lymphocytes 0.91 L Absolute Monocytes 0.73 Absolute Eosinophils 0.00 Absolute Basophils 0.02 Sodium 139 Potassium 3.7 Chloride 103 Carbon Dioxide 20.0 L Anion Gap 16.0 H BUN 2 L Creatinine 0.7 Estimated GFR/1.73 m2 >= 60.00 Glucose 158 H Calcium 8.7 Magnesium 1.5 L Total Bilirubin 1.1 H Conjugated Bilirubin 0.2 AST 30 ALT 19 Alkaline Phosphatase 156 H Total Protein 7.7 Albumin 3.4 Lipase 915 H Ethyl Alcohol < 3.0 COVID-19 Source SARS-CoV-2 (PCR) 09/03/20 05:06 WBC RBC Hgb Hct MCV MCH MCHC RDW Plt Count MPV Immature Gran % Neutrophils % Lymphocytes % Monocytes % Eosinophils % Basophils % Nucleated RBC % Absolute Neutrophils Absolute Lymphocytes Absolute Monocytes Absolute Eosinophils Absolute Basophils Sodium Potassium Chloride Carbon Dioxide Anion Gap BUN Creatinine Estimated GFR/1.73 m2 Glucose Calcium Magnesium Total Bilirubin Conjugated Bilirubin AST ALT Alkaline Phosphatase Total Protein Albumin Lipase Ethyl Alcohol COVID-19 Source Nasal/Nares SARS-CoV-2 (PCR) Negative
--- NOTE | 2020-09-03 15:51 | PHA.REVIEW ---
Pharmacy Admission Review - Admission Clinical Review (Last Reviewed 09/03/20 @ 03:52 by Alejo Larson MD) Acute on chronic pancreatitis (Acute) Opioids - Morphine Analogues Allergy (Mild, Verified 09/03/20 00:32) urticaria Penicillins Allergy (Unverified 09/03/20 00:32) Resuscitation Status Full Code Height 5 ft 8 in Weight 81.647 kg - Renal Dosing Renal Dosing: BUN 2 mg/dL (7-18) L 09/03/20 00:50 Creatinine 0.7 mg/dL (0.70-1.30) 09/03/20 00:50 Medications needing adjustments: Reviewed (Crcl ~93 mL/min current meds okay) - Anticoagulation Anticoagulation: Hgb 15.3 g/dL (13.5-17.5) 09/03/20 00:50 Hct 44.5 % (40.0-50.0) 09/03/20 00:50 Plt Count 217 10^3/uL (130-400) 09/03/20 00:50 Creatinine 0.7 mg/dL (0.70-1.30) 09/03/20 00:50 DVT Prophylaxis: N/A Therapeutic Anticoagulation: Reviewed Medications: Apixaban - Opiate Usage Evaluate Pain Scale/Pains Meds: Reviewed Scheduled Bowel Reg ordered if on Opiates?: No (will mention to provider) - Relevant Labs Sodium 139 mmol/L (136-145) 09/03/20 00:50 Potassium 3.7 mmol/L (3.5-5.1) 09/03/20 00:50 Chloride 103 mmol/L (98-107) 09/03/20 00:50 Magnesium 1.5 mg/dL (1.8-2.4) L 09/03/20 00:50 Electrolytes, C-Reactive P, ESR: Reviewed (mag replacement ordered) - DM Control DM Control: Glucose 158 mg/dL (74-106) H 09/03/20 00:50 Insulin Dosing: N/A (BG elevated this morning) - Heart Failure/OR EF%, EDWINA's, B-Blockers, Diuretics: N/A - BP Control BP Control: Blood Pressure 153/90 Blood Pressure 171/92 Blood Pressure 170/65 If elevated: Reviewed (BP has been elevated so far this admission, has metoprolol ordered BID) - Qtc Review If Elevated: N/A - IV to PO Switch IV Medications: Reviewed - Home Meds Home Med List reviewed: Reviewed (Recommended to avoid chronic/excessive use of mutlivitamin and sucralfate due to increased risk of aluminum toxicity.) Relevent Home Meds Not ordered & why?: creon, finasteride, magnesium oxide, multivitamin, sucralfate, tamsulosin, thiamine - Current meds Current Medication Order Review: Intervened (Banana bag ordered this morning, will ask provider about po thiamine and multivitamins going forward. Discontinued DI meds.) - Comments Comments/Follow Ups: Watch BP, BG, mag, labs and for med changes (IV to PO, home meds)
[2020-09-03 16:46] VITALS: BP 143/97; PULSE 77; RESP 16; TEMP 36.6; O2SAT 98
[2020-09-03] MEDS: Docusate Sodium 100 MG CAP PO (20:17)
[2020-09-03] MEDS: Senna TAB 1 TAB PO (22:11)
[2020-09-03] MEDS: Lactated Ringers 1,000 ML 200 ML IV (22:34)
[2020-09-04 00:58] VITALS: BP 132/70; PULSE 74; RESP 17; TEMP 36.4; O2SAT 96
[2020-09-04] MEDS: Lactated Ringers 1,000 ML 200 ML IV ×2 (03:55→09:00)
[2020-09-04] MEDS: HYDROmorphone 2 MG/ML VIAL IVP ×5 (03:55→19:25)
[2020-09-04] MEDS: Normal Saline Flush 10 ML SYR IVP ×4 (06:34→19:24)
[2020-09-04] MEDS: Pantoprazole 40 MG VIAL IVP (06:34)
[2020-09-04 07:44] LABS: Abs Immature Grans 0.01 10^3/uL (0.0-0.06); Absolute Basophil Count 0.02 10^3/uL (0.0-0.2); Absolute Eosinophil Count 0.08 10^3/uL (0.0-0.7); Absolute Lymphocyte Count 1.18 10^3/uL (1.2-3.4); Absolute Monocyte Count 0.39 10^3/uL (0.1-0.8); Absolute Neutrophil Count 2.99 10^3/uL (1.2-6.7); Basophils % 0.4; Eosinophils % 1.7; HCT 40.3 % (40.0-50.0); HGB 13.2 g/dL (13.5-17.5); Immature Grans % 0.2; Lymphocytes % 25.3; MCH 32.6 pg (27.0-33.0); MCHC 32.8 % (32.0-36.0); MCV 99.5 fL (80-95); MPV 9.9 fL (8.0-11.0); Monocytes % 8.4; Nucleated RBC 0 %; Platelet Count 160 10^3/uL (130-400); RBC 4.05 10^6/uL (4.36-5.78); RDW 14.7 % (11.8-14.1); RDW-SD 54.9 fL; WBC 4.67 10^3/uL (4.4-10.8)
[2020-09-04 07:59] LABS: ALT 16 U/L (16-63); AST 35 U/L (15-37); Albumin 2.6 g/dL (3.4-5.0); Alkaline Phosphatase 152 U/L (46-116); Anion Gap 9.2 mmol/L (3-11); BUN 7 mg/dL (7-18); Bilirubin, Total 3.9 mg/dL (0.2-1.0); CO2 23.8 mmol/L (21.0-32.0); CREATININE 0.7 mg/dL (0.70-1.30); Calcium 8.3 mg/dL (8.5-10.1); Chloride 107 mmol/L (98-107); Glucose 65 mg/dL (74-106); Lipase 34 U/L (73-393); Potassium 3.9 mmol/L (3.5-5.1); Sodium 140 mmol/L (136-145); Total Protein 6.2 g/dL (6.4-8.2)
[2020-09-04] MEDS: chlordiazePOXIDE 25 MG CAP PO ×3 (08:15→21:07)
[2020-09-04] MEDS: Docusate Sodium 100 MG CAP PO ×2 (08:15→21:07)
[2020-09-04] MEDS: Folic Acid 1 MG TAB PO (08:15)
[2020-09-04] MEDS: Apixaban 5 MG TAB PO ×2 (08:15→21:07)
[2020-09-04] MEDS: Metoprolol 50 MG TAB PO (08:15)
[2020-09-04] MEDS: Multivitamin TAB 1 TAB PO (08:15)
[2020-09-04] MEDS: Thiamine 100 MG TAB PO (08:16)
[2020-09-04 08:51] VITALS: BP 146/85; PULSE 74; RESP 18; TEMP 36.6; O2SAT 97
[2020-09-04] MEDS: DEXTROSE 5%-LACTATED RINGERS 1,000 ML 150 ML IV ×2 (10:17→18:16)
[2020-09-04] MEDS: Lidocaine 2% Jelly 11 ML SYR (10:46)
[2020-09-04] MEDS: Methylnaltrexone 12 MG/0.6 ML VIAL SC (11:25)
--- NOTE | 2020-09-04 12:53 | W.PM.PROGNOT ---
Date of Service Date of service: 09/04/20 Time of Service: 12:53 Assessment and Plan Assessment and plan (1) Pancreatitis: Status: Chronic Assessment and plan: Trial of clear liquid diet. Monitor his response as far as any post prandial pain/nausea. cont. narcotics and antiemetics prn; cont. iv fluids, monitor labs; needs follow up at [facility] for ERCP/EUS Qualifiers: Chronicity: chronic Pancreatitis type: alcohol induced Qualified Code(s): K86.0 - Alcohol-induced chronic pancreatitis (2) Alcohol abuse: Status: Chronic Assessment and plan: Banana bag, CIWA, scheduled Librium (3) Constipation: Status: Resolved Assessment and plan: patient given Relistor 12 mg this morning w/out results. Will put him on scheduled Miralax and senna and give him another dose of Relistor Qualifiers: Constipation type: drug induced constipation Qualified Code(s): K59.03 - Drug induced constipation (4) Acute urinary retention: Status: Acute Assessment and plan: mildly enlarged prostate but doubt this is the cause. He has had symptoms of slow/weak stream; no dysuria. Will put him on Flomax Subjective Subjective Interval history since last seen: Patient w/ acute urinary retention and had 950 mL of urine upon straight catheterization. He also is constipated. His abdominal pain is improved since straight cath. Lipase is down to 34. I will try him on clear liquids and advance his diet as tolerated. He was given Relistor to try to treat his constipation. I will put him on miralax and docusate and senna. No overt withdrawal symptoms. CIWA scores low at 0 to 2. Currently on low dose Librium prophylaxis Exam Narrative Exam Narrative: Middle age white male who is lying in bed in no acute distress, alert and oriented Lungs: clear Heart: RRR, w/o murmur, rub or gallops Abdomen: nondistended, active bowel sounds; mild tenderness w/ palpation of eipgastrium and LUQ; no rebound tenderness and no guarding. Rectal exam: normal sphincter tone w/ light mucous negative for occult blood. prostate mildly enlarged (3 finger widths), no nodularity and nontender Objective Last Vital Signs Temp 36.6 C 09/04/20 08:51 Pulse 74 09/04/20 08:51 Resp 18 09/04/20 08:51 BP 146/85 H 09/04/20 08:51 Pulse Ox 97 09/04/20 08:51 Laboratory Results - last 24 hr 09/04/20 09/04/20 07:16 07:16 WBC 4.67 RBC 4.05 L Hgb 13.2 L D Hct 40.3 MCV 99.5 H MCH 32.6 MCHC 32.8 RDW 14.7 H Plt Count 160 MPV 9.9 Immature Gran % 0.2 Neutrophils % 64.0 Lymphocytes % 25.3 Monocytes % 8.4 Eosinophils % 1.7 Basophils % 0.4 Nucleated RBC % 0 Absolute Neutrophils 2.99 Absolute Lymphocytes 1.18 L Absolute Monocytes 0.39 Absolute Eosinophils 0.08 Absolute Basophils 0.02 Sodium 140 Potassium 3.9 Chloride 107 Carbon Dioxide 23.8 Anion Gap 9.2 BUN 7 Creatinine 0.7 Estimated GFR/1.73 m2 >= 60.00 Glucose 65 L D Calcium 8.3 L Magnesium 2.0 Total Bilirubin 3.9 H AST 35 ALT 16 Alkaline Phosphatase 152 H Total Protein 6.2 L Albumin 2.6 L Lipase 34
[2020-09-04] MEDS: Polyethylene Glycol 3350 17 GM PACKET PO (14:11)
[2020-09-04] MEDS: Tamsulosin 0.4 MG CAPCR PO (14:11)
[2020-09-04 14:15] VITALS: BP 181/89; PULSE 71; RESP 18; TEMP 36.4; O2SAT 98
[2020-09-04 15:49] VITALS: BP 167/88; PULSE 66; RESP 19; TEMP 36.7; O2SAT 97
--- NOTE | 2020-09-04 16:30 | PDOC.CMPRO ---
- If Service Date Differs Date of service: 09/04/20 Time of Service: 16:30 Care Management Progress Note S/O: CM telephones the [place] [employer] this morning to inquire about applying for General Delivery of his mail. MARY ANN is advised that Juan Jose has to physically go to the [facility] to complete the application, in addition to providing ID. CM is also advised that General Delivery is only effective for 30 days, after which he will need to either change his mailing address, rent a post office box ($34 for 6 months/$64.00 for the year) or his mail will be returned to sender. Juan Jose, who goes by Kal, is laying in bed when CM comes to meet with him. CM informs him of the conversation with the [employer]. Kal states that he would like to have a post office box but he cannot afford the rental fee. MARY ANN discusses with Kal his desire to establish care at [facility] and offers to help him make that telephone call to start the process. Kal states that he doesn't know how he would get to [facility], as it is too far for him to walk. He knows he can call [facility] for rides to appointments but states he just hasn't called them in the past to set up rides to appointments scheduled at [facility]. CM also offers to assist him with getting an appointment at [facility] for counseling. Kal declines, saying he doesn't need to see a counselor. Kal shares that Katt, Surgical Assistant Certified, will be coming by tomorrow to visit him. He also is aware that Nicole Manley RN, [facility] casework supervisor, is scheduled to come by his apartment on Wednesday to do enrollment paperwork with him. CM will continue to follow. A: Kal is a 60 year old male admitted to [facility] on 09/02/2020 for pancreatitis. P: Anticipate Kal will be discharged home with no services when medically cleared by provider. He will follow up with his PCP, [facility] for ERCP procedure at 7:45 am on 09/11/20, and discharge plan of care as directed. He will be driven home via [facility] private vehicle coordinated by MARY ANN when ready. CM will continue to follow.
[2020-09-04] MEDS: Senna TAB 1 TAB PO (21:05)
[2020-09-04] MEDS: Metoprolol 50 MG TAB 100 MG PO (21:06)
[2020-09-05] MEDS: DEXTROSE 5%-LACTATED RINGERS 1,000 ML 150 ML IV ×2 (01:00→09:35)
[2020-09-05] MEDS: Normal Saline Flush 10 ML SYR IVP ×3 (01:10→07:59)
[2020-09-05] MEDS: HYDROmorphone 2 MG/ML VIAL IVP ×2 (01:11→07:59)
[2020-09-05 01:32] VITALS: BP 159/87; PULSE 74; RESP 18; TEMP 36.5; O2SAT 96
[2020-09-05] MEDS: Pantoprazole 40 MG VIAL IVP (06:34)
[2020-09-05 07:13] LABS: Abs Immature Grans 0.01 10^3/uL (0.0-0.06); Absolute Basophil Count 0.02 10^3/uL (0.0-0.2); Absolute Eosinophil Count 0.09 10^3/uL (0.0-0.7); Absolute Lymphocyte Count 1.15 10^3/uL (1.2-3.4); Absolute Monocyte Count 0.32 10^3/uL (0.1-0.8); Absolute Neutrophil Count 1.73 10^3/uL (1.2-6.7); Basophils % 0.6; Eosinophils % 2.7; HCT 37.4 % (40.0-50.0); HGB 12.3 g/dL (13.5-17.5); Immature Grans % 0.3; Lymphocytes % 34.6; MCH 31.9 pg (27.0-33.0); MCHC 32.9 % (32.0-36.0); MCV 97.1 fL (80-95); Monocytes % 9.6; Neutrophils % 52.2; Nucleated RBC 0 %; Platelet Count 131 10^3/uL (130-400); RBC 3.85 10^6/uL (4.36-5.78); RDW 14.6 % (11.8-14.1); RDW-SD 51.8 fL; WBC 3.32 10^3/uL (4.4-10.8)
--- NOTE | 2020-09-05 07:24 | NUR.NOTE ---
Patient was bladder scanned for 783mls at approximately 0200 this am. He adamantly refused to be straight cath state he will do so in the morning. Went to reassess patient this morning to ascertain if he void. Voided 100mls in urinal and refused to be bladder scanned or straight cath. Pt was educated about about this, he still refused straight cath.
[2020-09-05 07:34] LABS: ALT 16 U/L (16-63); AST 24 U/L (15-37); Albumin 2.1 g/dL (3.4-5.0); Alkaline Phosphatase 178 U/L (46-116); Anion Gap 4.9 mmol/L (3-11); BUN 3 mg/dL (7-18); Bilirubin, Direct 0.4 mg/dL (0.0-0.2); Bilirubin, Total 1.1 mg/dL (0.2-1.0); CO2 27.1 mmol/L (21.0-32.0); CREATININE 0.7 mg/dL (0.70-1.30); Calcium 7.7 mg/dL (8.5-10.1); Chloride 106 mmol/L (98-107); Glucose 134 mg/dL (74-106); Lipase 18 U/L (73-393); Potassium 3.8 mmol/L (3.5-5.1); Sodium 138 mmol/L (136-145); Total Protein 5.4 g/dL (6.4-8.2)
[2020-09-05 07:40] VITALS: BP 167/98; PULSE 84; RESP 18; TEMP 36.9; O2SAT 96
[2020-09-05] MEDS: Multivitamin TAB 1 TAB PO (07:58)
[2020-09-05] MEDS: Folic Acid 1 MG TAB PO (07:58)
[2020-09-05] MEDS: Docusate Sodium 100 MG CAP PO ×2 (07:58→20:37)
[2020-09-05] MEDS: Polyethylene Glycol 3350 17 GM PACKET PO (07:58)
[2020-09-05] MEDS: Tamsulosin 0.4 MG CAPCR PO ×2 (07:58→20:38)
[2020-09-05] MEDS: Apixaban 5 MG TAB PO ×2 (07:59→20:38)
[2020-09-05] MEDS: Thiamine 100 MG TAB PO (07:59)
[2020-09-05] MEDS: Metoprolol 50 MG TAB 100 MG PO ×2 (07:59→20:38)
[2020-09-05] MEDS: chlordiazePOXIDE 25 MG CAP PO ×3 (07:59→20:37)
--- NOTE | 2020-09-05 13:50 | PDOC.CMPRO ---
- If Service Date Differs Date of service: 09/05/20 Time of Service: 13:51 Care Management Progress Note S/O: Guillermo was lying in bed when CM met with him. He reported that his diet had been advanced today but he was not tolerating it well and did not feel good at that time. He asked for CM to find his RN. CM discussed this with his RN, and asked that she see him as soon as she became available. CM will continue to follow. A: Kal is a 60 year old male admitted to [facility] on 09/02/2020 for pancreatitis. P: Anticipate Kal will be discharged home with no services when medically cleared by provider. He will follow up with his PCP, [facility] for ERCP procedure at 7:45 am on 09/11/20, and discharge plan of care as directed. He will be driven home via [facility] private vehicle coordinated by MARY ANN when ready. CM will continue to follow.
--- NOTE | 2020-09-05 14:45 | DI.RAD_ITS ---
Exam(s) XR ABDOMEN FLAT UPRIGHT EXAM: XR ABDOMEN FLAT UPRIGHT CLINICAL HISTORY: abdominal pain. TECHNIQUE: 2D digital imaging was performed. COMPARISON: CT CT ABDOMEN PELVIS W from 09/03/2020 FINDINGS: There is a mild ileus pattern. No bowel obstruction. No free air. There are no calcifications seen over the kidneys nor along the course of the ureters. Regional bones appear age-appropriate. Vascu lar calcifications noted both common femoral arteries. IMPRESSION: Ileus pattern. This commensurate with the pancreatitis seen on CT scan 2 days ago. There is no free intraperitoneal air. DATA REPOSITORY: RADIATION DOSE DELIVERED:
--- NOTE | 2020-09-05 15:15 | W.PM.PROGNOT ---
Date of Service Date of service: 09/05/20 Time of Service: 15:15 Assessment and Plan Assessment and plan (1) Pancreatitis: Status: Chronic Assessment and plan: Lipase and LFTs are improving. I think his current abdominal pain is not from his pancreatitis but rather from his constipation possibly from a partial small bowel obstruction from his chronic narcotic use. I am stopping his narcotics Qualifiers: Chronicity: chronic Pancreatitis type: alcohol induced Qualified Code(s): K86.0 - Alcohol-induced chronic pancreatitis (2) Alcohol abuse: Status: Chronic Assessment and plan: Patient has been on oral supplementation with thiamine folic acid and multivitamin. He was started on Librium for prevention of alcohol withdrawal. (3) Constipation: Status: Resolved Assessment and plan: Patient had two moderate sized bowel movements one was semi-formed and the other was liquid. I am concerned that he has much more stool and may have SBO or impacted stool. I will check KUB and upright abdominal exam Qualifiers: Constipation type: drug induced constipation Qualified Code(s): K59.03 - Drug induced constipation (4) Acute urinary retention: Status: Acute Assessment and plan: Patient had residual urine last night of 783 mL at 2:00 am but refused to be cathed. He refused to be scanned at 8:00 am today. He reportedly voided in the bathroom into while the nurse was in the room but no volume was able to be recorded Subjective Subjective Interval history since last seen: Patient with recurrent nausea and vomiting this afternoon. He was intolerant of a regular diet. I put him on a low-fat regular diet this morning. His lipase remains normal. LFTs are improved. Patient has been constipated and has had problems with urinary retention. Patient was given Relistor yesterday and was placed on stool softeners and today he was given MiraLAX and had to moderate sized bowel movements 1 of which was semiformed the other one was liquid. However his abdomen is distended and tender. We will make him n.p.o. in order KUB and upright. Exam Narrative Exam Narrative: Middle-aged white male who appears ill he is alert and oriented person place time circumstance. Abdomen reveals hyperactive bowel sounds throughout the abdomen. Abdomen is distended firm but not hard with diffuse tenderness. Objective Last Vital Signs Temp 36.9 C 09/05/20 07:40 Pulse 84 09/05/20 07:40 Resp 18 09/05/20 07:40 BP 167/98 H 09/05/20 07:40 Pulse Ox 96 09/05/20 07:40 Laboratory Results - last 24 hr 09/05/20 09/05/20 07:00 07:00 WBC 3.32 L RBC 3.85 L Hgb 12.3 L Hct 37.4 L MCV 97.1 H MCH 31.9 MCHC 32.9 RDW 14.6 H Plt Count 131 MPV 10.0 Immature Gran % 0.3 Neutrophils % 52.2 Lymphocytes % 34.6 Monocytes % 9.6 Eosinophils % 2.7 Basophils % 0.6 Nucleated RBC % 0 Absolute Neutrophils 1.73 Absolute Lymphocytes 1.15 L Absolute Monocytes 0.32 Absolute Eosinophils 0.09 Absolute Basophils 0.02 Sodium 138 Potassium 3.8 Chloride 106 Carbon Dioxide 27.1 Anion Gap 4.9 BUN 3 L Creatinine 0.7 Estimated GFR/1.73 m2 >= 60.00 Glucose 134 H Calcium 7.7 L Total Bilirubin 1.1 H Conjugated Bilirubin 0.4 H AST 24 ALT 16 Alkaline Phosphatase 178 H Total Protein 5.4 L Albumin 2.1 L Lipase 18
[2020-09-05 16:08] VITALS: BP 142/79; PULSE 72; RESP 20; TEMP 36.6; O2SAT 98
[2020-09-05] MEDS: Lidocaine 2% Jelly 11 ML SYR UR (16:56)
[2020-09-05] MEDS: Methylnaltrexone 12 MG/0.6 ML VIAL SC (16:56)
[2020-09-05] MEDS: Senna TAB 1 TAB PO (20:38)
[2020-09-05 21:44] VITALS: BP 145/81; PULSE 82; RESP 20; TEMP 36.7; O2SAT 98
[2020-09-06 07:30] VITALS: BP 160/98; PULSE 72; RESP 20; TEMP 36.4; O2SAT 93
[2020-09-06] MEDS: Apixaban 5 MG TAB PO (08:08)
[2020-09-06] MEDS: Metoprolol 50 MG TAB 100 MG PO (08:08)
[2020-09-06] MEDS: Tamsulosin 0.4 MG CAPCR PO (08:08)
[2020-09-06] MEDS: chlordiazePOXIDE 25 MG CAP PO (08:08)
--- NOTE | 2020-09-06 13:33 | DSE_ITS ---
Date of service: 09/06/20 Time of Service: 13:34 DS: Diagnosis Discharge Diagnosis (1) Pancreatitis: Status: Chronic (2) Alcohol abuse: Status: Chronic (3) Constipation: Status: Acute (4) Acute urinary retention: Status: Acute Discharge Plan Disposition Patient Disposition: HOME Condition: Improving Discharge Details Reason For Visit: Pancreatitis Admit Date/Time: 09/03/20 04:05 Admit Provider: Alejo Larson Attending Provider: Alejo Larson Primary Care Provider: Unknown,Unknown Hospital Course Hospital Course: Patient was admitted w/ acute on chronic pancreatitis. See admission H&P for details. He presented w/ nausea, vomting anad abdominal pain. Lipase was elevated at 915 but quickley declined overnight w/ aggressive iv fluid hydration to 34 and at discharge was 18. His CT abdomen and pelvis demonstrated findings c/w acute and chronic pancreatitis w/ peripancreatic inflammation w/ unencapsulated fluid adjacent to the pancreatic head and proximal body and increased pancreatic duct dilatation compared to prior study from 08/06/2020. Coarse calcifications within the pancreas. No abscess or necrosis was seen. No evidence of cholecystitis but mildly dilated CBD w/out choledocholithiasis. Patient was initially made NPO and given iv fluids, antiemetics and parenteral narcotics. On 09/04 his diet was advanced to clear liquids and by 09/05 it was advance to regular low fat diet. However, he had recurrent nausea and vomiting and increased abdominal pain. He was made NPO again except for ice chips and sips of water. On 09/05 again his diet was tried to be advanced but he was intolerant. This time his abdomen appeared to be swollen and KUB was done and demonstrated an ileus and his urinary bladder was found to be distended. He had a bladder scan of over 900 mL. Initially he refused to have sharp placed and underwent straight cath but when he had recurrent bladder volumes of 800 mL he refused further straight cath and refused bladder scans. On 09/05 I scanned his bladder and had a volume of greater than 600 mL and ordered sharp. I stopped his narcotics. On the morning of 09/06 he was refusing a trial of foods even though his abdomen had decreased in size and was softer and nontender. he was upset about not getting his narcotics even though his abdomen was nontender to palpation. He insisted that he was leaving the hospital. Sharp and iv were taken out and he left the hospital against medical advice. Home Meds and New Rx's Prescriptions: Continued Creon 12,000-38,000 -60,000 unit capsule,delayed release(DR/EC) 1 cap PO AC & HS Qty: 120 RF: 0 tamsulosin 0.4 mg Capsule 0.8 mg PO DAILY Qty: 30 RF: 0 sucralfate [Carafate] 1 gram tablet 1 g PO BID Qty: 60 RF: 0 finasteride 5 mg Tablet 5 mg PO DAILY Qty: 30 RF: 0 metoprolol tartrate 25 mg Tablet 50 mg PO BID Qty: 60 RF: 0 multivitamin [Multiple Vitamins] Tablet 1 tab PO DAILY Qty: 0 RF: 0 thiamine mononitrate (vit B1) [Vitamin B-1 (mononitrate)] 100 mg Tablet 100 mg PO QAM Qty: 30 RF: 0 Eliquis 5 mg tablet 5 mg PO BID Qty: 60 RF: 0 magnesium oxide 500 mg capsule 500 mg PO BID Qty: 60 RF: 0 ondansetron 4 mg tablet,disintegrating 4 mg PO TID PRN (Reason: nausea and vomiting) Qty: 6 RF: 0 pantoprazole [Protonix] 40 mg tablet,delayed release (DR/EC) 40 mg PO DAILY Qty: 30 RF: 0 Discharge Instructions Instructions: Pancreatitis (DC), Urinary Retention in Men (GEN), Ileus (DC) Additional Instructions: You were admitted due to protracted nausea, abdominal pain and vomiting. You have chronic pancreatitis and presented w/ findings of acute pancreatitis. During your hospital stay you developed acute urinary retention and an ileus ( a shutting down of your bowel movements). The urinary retention and ileus are a result of chronic and acute narcotic use to treat your pancreatitis. Your acute pancreatitis quickly resolved with intravenous fluids and keeping you NPO (not archie to eat) however when we tried to advance your diet you became nauseated and vomited. Initially it was thought that your pancreatitis was worsening however, your lab work indicated that in fact your pancreatitis was better. It turned out that your pain and nausea during the latter part of your stay was d/t urinary retention and ileus. The urinary retention resolved when the sharp catheter was placed. However you are choosing to leave before we have had a chance to document that you are able to void on your own and to document that you are tolerating a diet w/out nausea or vomiting. You have chosen to leave against our advice. If you are unable to void (urinate) after 8 to 12 hours while drinking adequate fluids then you should be re-evaluated. If you do not have a bowel movement in the next 48 to 72 hours you should be re-evaluated. If you start vomiting and can not keep down clear liquids then you should be re- evaluated. Keep a follow up with your primary physician and follow up w/ your GI specialist at [facility]. Stand Alone Forms: Nursing Discharge Form Referrals: Benjamin Bustillos DO [OSTEOPATHIC DOCTOR] - 09/20/20 3:00 pm Activity:: Activity as Tolerated Equipment/Supplies:: No Equipment Needed Diet:: As Tolerated Discharge Orders Discharge Orders: Discharge Order (Routine); Ordered 09/06/20 Ordered By: Elias Espino Discharge Data Discharge Date/Time-TO BE ENTERED AT DEPARTURE: 09/06/20 13:50 DS: Summary Time Spent with Patient providing and/or coordinating discharge services: Less than 30 minutes Status at Discharge Functional status at discharge: independent ambulation Overall status at discharge: patient is back to baseline Mental Status: mental status grossly normal Speech and Movement: speech and movement normal Mood: congruent mood Affect: normal affect Exam Narrative Exam Narrative: Abdomen w/ active bowel sounds, soft, nontender, no guarding, no rebound tenderness; sharp draining clear pale yellow urine Psych Mental Status: mental status grossly normal Speech and Movement: speech and movement normal Mood: congruent mood Affect: normal affect DS: Data Vitals/I&O Vitals and I&O: Vital Signs Temperature 36.4 C L 09/06/20 07:30 Temperature Source Tympanic 09/06/20 07:30 Pulse 72 09/06/20 07:30 Pulse Rhythm Regular 09/06/20 08:10 Pulse 108 H 09/03/20 01:22 Respiratory Rate 20 09/06/20 07:30 Respiratory Effort Non-Labored 09/06/20 08:10 Respiratory Depth Normal 09/06/20 08:10 Respiratory Pattern Normal 09/06/20 08:10 Blood Pressure 160/98 H 09/06/20 07:30 Blood Pressure Mean 113 09/03/20 01:22 Blood Pressure Position Sitting 09/03/20 00:30 Pulse Oximetry 93 09/06/20 07:30 Oxygen Delivery Method Room Air 09/06/20 07:30 Oxygen Flow Rate 0 09/06/20 07:30 Pain Level 7 09/06/20 07:30 Comment 09/06/20 07:30 Intake & Output 09/05/20 09/06/20 09/06/20 23:59 11:59 23:59 Intake Total 1240 / 3250 Output Total 2300 / 2400 1050 / 2250 1200 / 2250 Balance -1060 / 850 -1050 / -2250 -1200 / -2250 Intake: IV 1000 / 3010 Oral 240 / 240 Output: Urine 2300 / 2400 1050 / 2250 1200 / 2250 Other: Urine Color Yellow Yellow Yellow Urine Appearance Clear Clear Clear Comment Patient verbalized understanding of need for catheter, provided verbal consent for insertion of catheter by this RN. Stool Size Moderate Stool Characteristics Soft PFSH Medical History Acute UTI Alcohol withdrawal Alcoholic gastritis Alcoholism /alcohol abuse ARDS (adult respiratory distress syndrome) Aspiration pneumonia COVID-19 ruled out by laboratory testing Enterocolitis Fever Ground glass opacity present on imaging of lung HTN (hypertension) Hx of hyperlipidemia Hypokalemia Hypomagnesemia Myocardial infarction x 2 Pancreatitis Pancreatitis, chronic Pneumonia Presence of pancreatic duct stent (~01/2018) Sean Sears Retention of urine Septal myocardial infarction (01/18/20) probably old, [facility] records Urinary retention Surgical History S/P ERCP (~01/2018) Sean Sears Family History Mother Alcohol abuse Father Alcohol abuse Social History Smoking/Tobacco Use Status: Current every day Tobacco Type: cigarettes Smoking packs per day: 1 Smoking cigarettes per day: 20.0 Smoking risk assessment performed?: Yes Alcohol Intake: current Alcohol Intake frequency: 3 or more drinks per day Alcohol type: beer Drug use: Never Substance use type: marijuana Housing: apartment Do you feel safe at home: Yes Do you feel safe in your relationship?: Yes
--- NOTE | 2020-09-06 17:19 | PDOC.CMDIS ---
- If Service Date Differs Date of service: 09/06/20 Time of Service: 17:19 LACE Index Scoring Tool - Questions: Length of Stay (in days): 3 Acuity (Admit via E.D.?): Yes E.D. Visits: 24 - Answers: Total Score: 10 Risk of Readmission: High Risk Care Management Discharge Reason for Hospitalization: Pancreatitis. Discharge Plan: Juan Jose Porras) will return home today with no services. MARY ANN ordered [facility] for his ride home, but he left before the car arrived. MARY ANN also set up a ride through [facility] for Guillermo for his appointment at [facility] on 09/11/20 and [facility] on 09/20/20. He will follow up with his PCP and discharge plan of care. Patient/Family Education Needs: Review discharge instructions, discussion of self care needs including ask me three. Services Needed at Discharge: Transportation
== END 2020-09-06 13:50 | disposition home or self-care (01) | DRG 440 ==
LOC: ER 04:44 → MS 05:13
PROVIDERS: Internal Medicine; Admitting Provider General Practice; Emergency Provider Emergency Medicine; Visit Provider General Practice
DX: F10.10 Alcohol abuse, uncomplicated (principal); K85.20 Alcohol induced acute pancreatitis without necrosis or infection; Z79.01 Long term (current) use of anticoagulants; K86.0 Alcohol-induced chronic pancreatitis; K29.20 Alcoholic gastritis without bleeding; Z20.822 Contact with and (suspected) exposure to COVID-19; I10 Essential (primary) hypertension; E78.5 Hyperlipidemia, unspecified; E87.6 Hypokalemia; I25.2 Old myocardial infarction; R33.9 Retention of urine, unspecified; E83.42 Hypomagnesemia; F17.210 Nicotine dependence, cigarettes, uncomplicated; K59.03 Drug induced constipation; T40.2X5A Adverse effect of other opioids, initial encounter
CPT/HCPCS: 36415; 80048; 80053; 80076; 83690; 87635; 96361; 96365; 96366; 96367; 96375; 99285; 74019; 74177; 80320; 82248; 83735; 85025; 99222; 99232; 99238; J3490

== ENCOUNTER 2020-09-25 20:35 | Emergency (ER) | payer MEDICAID, SELFPAY ==
[2020-09-25 20:35] VITALS: BP 140/88; PULSE 113; RESP 18; TEMP 36.8; O2SAT 98
--- NOTE | 2020-09-25 21:13 | ED.GENADUL_ITS ---
Discharge Plan Disposition Patient Disposition: AGAINST MEDICAL ADVICE Discharge Details Clinical Impression: Abdominal pain, Alcohol abuse Primary Care Provider: Benjamin Bustillos ED Provider: Todd Brothers Home Meds and New Rx's Prescriptions: No Action quetiapine 50 mg tablet 50 mg PO QHS Qty: 20 RF: 0 pantoprazole [Protonix] 40 mg tablet,delayed release (DR/EC) 40 mg PO DAILY Qty: 30 RF: 0 Creon 12,000-38,000 -60,000 unit capsule,delayed release(DR/EC) 1 cap PO AC & HS Qty: 120 RF: 0 tamsulosin 0.4 mg Capsule 0.8 mg PO DAILY Qty: 30 RF: 0 sucralfate [Carafate] 1 gram tablet 1 g PO BID Qty: 60 RF: 0 finasteride 5 mg Tablet 5 mg PO DAILY Qty: 30 RF: 0 metoprolol tartrate 25 mg Tablet 50 mg PO BID Qty: 60 RF: 0 multivitamin [Multiple Vitamins] Tablet 1 tab PO DAILY Qty: 0 RF: 0 thiamine mononitrate (vit B1) [Vitamin B-1 (mononitrate)] 100 mg Tablet 100 mg PO QAM Qty: 30 RF: 0 Eliquis 5 mg tablet 5 mg PO BID Qty: 60 RF: 0 magnesium oxide 500 mg capsule 500 mg PO BID Qty: 60 RF: 0 ondansetron 4 mg tablet,disintegrating 4 mg PO TID PRN (Reason: nausea and vomiting) Qty: 6 RF: 0 Discharge Instructions Instructions: Against Medical Advice (ED) Additional Instructions: You are leaving AGAINST MEDICAL ADVICE. Please return the emerge department at any time for further work-up and treatment as recommended. Please stop abusing alcohol. Please follow-up with your primary care physician. Referrals: Benjamin Bustillos DO [Primary Care Provider] - Medical Decision Making 50-year-old male with alcohol use disorder alcoholic gastritis and pancreatitis, here with abdominal pain. Patient has had frequent ED evaluations for similar. Patient hemodynamically stable. Labs to assess for pancreatitis reviewed and lipase is normal. Patient has no leukocytosis. No significant electrolyte abnormalities. Patient did have an elevated alcohol level 276. Plan for abdominal series x-ray. Patient reassessed and continues to be hemodynamically stable, mentating well. Patient now requesting to leave prior to completion of work-up. I had a discussion with the patient about my diagnostic/treatment plan including abdominal x-ray and continued reassess, potential additional diagnostics and treatment. Patient declines plan and wishes to leave against medical advise. I reiterated my concerns to the patient and explained the risks of leaving prior to completion of workup and treatment. I specifically emphasized the possibility of life-threatening or lifestyle modifying disease that would not be appropriately treated if they leave. Patient verbalized understanding of my concerns and the potential for life threatening or lifestyle modifying disease. Patient has capacity to make informed decision -he is clinically sober and ambulating without any difficulty. I again explained my concerns and urged the patient to stay for treatment as ou tlined. Patient continued to refuse. I then discussed potential less ideal alternatives to diagnostic/treatment plan as outlines and patient refused. I recommended that the patient follow-up with primary care physician SHILA or return to the Emergency Department at any time for further treatment. HPI General Mode of arrival: ambulatory . Date/Time Provider Initiated Documentation: 09/25/20 20:39 . Limitations to Documentation: no limitations . Information obtained by: patient . HPI Narrative: 50-year-old male with history of alcohol use disorder, pancreatitis, alcoholic gastritis, here with chief complaint of abdominal pain. Patient has had frequent ED evaluations for abdominal pain. Pain today is persisting all day. Constant. Severe. Pain is localized to upper mid abdomen. No radiation. Patient denies alcohol use today. Related Data Home Medications Medication Instructions Recorded Confirmed Creon 1 cap PO AC & HS #120 cap 01/28/20 09/25/20 tamsulosin 0.8 mg PO DAILY #30 cap 02/07/20 09/20/20 sucralfate [Carafate] 1 g PO BID #60 tab 04/30/20 09/20/20 finasteride 5 mg PO DAILY #30 tab 06/27/20 09/20/20 Eliquis 5 mg PO BID #60 tab 07/02/20 09/20/20 magnesium oxide 500 mg PO BID #60 cap 07/02/20 09/20/20 multivitamin [Multiple Vitamins] 1 tab PO DAILY #0 tab 07/02/20 09/20/20 thiamine mononitrate (vit B1) 100 mg PO QAM #30 tab 07/02/20 09/20/20 [Vitamin B-1 (mononitrate)] metoprolol tartrate 50 mg PO BID #60 tab 07/19/20 09/20/20 ondansetron 4 mg PO TID PRN #6 tab 07/21/20 09/20/20 pantoprazole 40 mg tablet,delayed 40 mg PO DAILY #30 tab 09/25/20 09/25/20 release quetiapine 50 mg tablet 50 mg PO QHS #20 tab 09/25/20 09/25/20 Previous Rx's Medication Instructions Recorded Creon 1 cap PO AC & HS #120 cap 01/28/20 tamsulosin 0.8 mg PO DAILY #30 cap 02/07/20 sucralfate [Carafate] 1 g PO BID #60 tab 04/30/20 finasteride 5 mg PO DAILY #30 tab 06/27/20 Eliquis 5 mg PO BID #60 tab 07/02/20 magnesium oxide 500 mg PO BID #60 cap 07/02/20 multivitamin [Multiple Vitamins] 1 tab PO DAILY #0 tab 07/02/20 thiamine mononitrate (vit B1) 100 mg PO QAM #30 tab 07/02/20 [Vitamin B-1 (mononitrate)] metoprolol tartrate 50 mg PO BID #60 tab 07/19/20 ondansetron 4 mg PO TID PRN #6 tab 07/21/20 pantoprazole 40 mg tablet,delayed 40 mg PO DAILY #30 tab 09/25/20 release quetiapine 50 mg tablet 50 mg PO QHS #20 tab 09/25/20 Allergies Allergy/AdvReac Type Severity Reaction Status Date / Time Opioids - Morphine Analogues Allergy Mild urticaria Verified 09/25/20 20:39 Penicillins Allergy Verified 09/25/20 20:39 General Stated Complaint: Abd Prob DMITRI: 3 Review of Systems All systems reviewed & are unremarkable except as noted in HPI and below Cardiovascular Cardiovascular: Denies dyspnea Respiratory Respiratory: Denies dyspnea Gastrointestinal Gastrointestinal: Reports abdominal pain [facility] Medical History Acute UTI Alcohol withdrawal Alcoholic gastritis Alcoholism /alcohol abuse ARDS (adult respiratory distress syndrome) Aspiration pneumonia COVID-19 ruled out by laboratory testing Enterocolitis Fever Ground glass opacity present on imaging of lung HTN (hypertension) Hx of hyperlipidemia Hypokalemia Hypomagnesemia Myocardial infarction x 2 Pancreatitis Pancreatitis, chronic Pneumonia Presence of pancreatic duct stent (~01/2018) Sean Sears Retention of urine Septal myocardial infarction (01/18/20) probably old, [facility] records Surgical History S/P ERCP (~01/2018) Sean Sears Family History Mother Alcohol abuse Father Alcohol abuse Social History Smoking/Tobacco Use Status: Current every day Tobacco Type: cigarettes Smoking packs per day: 1 Smoking cigarettes per day: 20.0 Smoking risk assessment performed?: Yes Alcohol Intake: current Alcohol Intake frequency: 3 or more drinks per day Alcohol type: beer Drug use: Never Substance use type: marijuana Housing: apartment Do you feel safe at home: Yes Do you feel safe in your relationship?: Yes Exam Const General: cooperative and no acute distress HENMT Mouth: moist mucous membranes Eyes Conjunctivae: normal conjunctivae Sclera: normal sclerae Neck Neck: trachea midline Resp Auscultation: clear to auscultation bilaterally, no rales, no rhonchi and no wheezes Cardio Rate: tachycardic Rhythm: regular rhythm GI Inspection: non-distended Palpation: soft, not firm, no guarding, no masses, not rigid and tender in the epigastrum; with no rebound tenderness Auscultation: normal bowel sounds Skin General skin exam: no rashes or lesions noted Neuro General: patient alert, patient awake, patient oriented x3 and tone normal Extrem General: no edema Psych Appearance: grossly normal Mental Status: mental status grossly normal Speech and Movement: speech and movement normal Course Vital Signs Vital signs: Vital Signs Temperature 36.8 C 09/25/20 20:35 Pulse 113 H 09/25/20 20:35 Respiratory Rate 18 09/25/20 20:35 Blood Pressure 140/88 09/25/20 20:35 Pulse Oximetry 98 09/25/20 20:35 Temperature 36.8 C 09/25/20 20:35 Pulse 113 H 09/25/20 20:35 Respiratory Rate 18 09/25/20 20:35 Respiratory Effort Non-Labored 09/25/20 20:38 Blood Pressure 140/88 09/25/20 20:35 Blood Pressure Position Supine 09/25/20 20:35 Pulse Oximetry 98 09/25/20 20:35 Pain Level 10 09/25/20 20:35
[2020-09-25] MEDS: FAMOTIDINE 20 MG/50 ML BAG 200 MG IVPB (21:30)
[2020-09-25] MEDS: Lactated Ringers 1,000 ML 1000 ML IV (21:52)
[2020-09-25 21:53] LABS: Abs Immature Grans 0.01 10^3/uL (0.0-0.06); Absolute Basophil Count 0.05 10^3/uL (0.0-0.2); Absolute Eosinophil Count 0.06 10^3/uL (0.0-0.7); Absolute Lymphocyte Count 2.65 10^3/uL (1.2-3.4); Absolute Monocyte Count 0.47 10^3/uL (0.1-0.8); Absolute Neutrophil Count 1.15 10^3/uL (1.2-6.7); Basophils % 1.1; Eosinophils % 1.4; HCT 47.4 % (40.0-50.0); HGB 15.4 g/dL (13.5-17.5); Immature Grans % 0.2; Lymphocytes % 60.4; MCH 30.7 pg (27.0-33.0); MCHC 32.5 % (32.0-36.0); MCV 94.4 fL (80-95); MPV 8.9 fL (8.0-11.0); Monocytes % 10.7; Neutrophils % 26.2; Nucleated RBC 0 %; RBC 5.02 10^6/uL (4.36-5.78); RDW 14.4 % (11.8-14.1); RDW-SD 49.6 fL; WBC 4.39 10^3/uL (4.4-10.8)
[2020-09-25 21:57] LABS: Platelet Count 265 10^3/uL (130-400)
[2020-09-25 22:10] LABS: ALT 42 U/L (16-63); AST 50 U/L (15-37); Albumin 3.1 g/dL (3.4-5.0); Alkaline Phosphatase 142 U/L (46-116); Anion Gap 11.7 mmol/L (3-11); BUN 3 mg/dL (7-18); Bilirubin, Total 0.4 mg/dL (0.2-1.0); CO2 23.3 mmol/L (21.0-32.0); CREATININE 0.7 mg/dL (0.70-1.30); Calcium 8.2 mg/dL (8.5-10.1); Chloride 107 mmol/L (98-107); ETHANOL BLOOD 276.5 mg/dL (<3); Glucose 135 mg/dL (74-106); Lipase 193 U/L (73-393); Potassium 3.4 mmol/L (3.5-5.1); Sodium 142 mmol/L (136-145); Total Protein 7.4 g/dL (6.4-8.2)
--- NOTE | 2020-09-25 22:21 | NUR.NOTE ---
pt removes IV and states he needs to leave ED immediately, aware, pt for d/c AMA
== END 2020-09-25 22:27 | disposition left against medical advice (07) ==
PROVIDERS: Emergency Provider Student in an Organized Health Care Education/Training Program; PCP Family Medicine
DX: R10.9 Unspecified abdominal pain (principal); F10.10 Alcohol abuse, uncomplicated; Z53.29 Procedure and treatment not carried out because of patient's decision for other reasons; K86.0 Alcohol-induced chronic pancreatitis; K29.20 Alcoholic gastritis without bleeding
CPT/HCPCS: 80053; 83690; 96361; 96365; 99284; 80320; 85025

== ENCOUNTER 2020-10-02 22:07 | Emergency (ER) | payer MEDICAID, SELFPAY ==
[2020-10-02 22:12] VITALS: BP 138/87; PULSE 134; RESP 20; TEMP 36.8; O2SAT 97
[2020-10-02 23:00] VITALS: BP 117/80; PULSE 130; RESP 18; O2SAT 96
[2020-10-02] MEDS: Normal Saline 1,000 ML 1000 ML IV (23:24)
--- NOTE | 2020-10-02 23:26 | ED.GENADUL_ITS ---
Discharge Plan Disposition Patient Disposition: HOME Condition: Stable Discharge Details Clinical Impression: Alcoholic gastritis, Abdominal pain Primary Care Provider: Benjamin Bustillos ED Provider: Brett Blanco Discharge Instructions Instructions: Gastritis (ED) Additional Instructions: try to limit your alcohol intake follow up with your primary care provider as scheduled if you feel more ill, have fevers or persistent vomit return to the emergency department Discharge Data Discharge Date/Time-TO BE ENTERED AT DEPARTURE: 10/03/20 02:06 Medical Decision Making <LATOYA Auguste - Last Filed: 10/03/20 08:23> Patient is a 60-year-old male, well-known to myself in the department, presenting today with chief complaint of left-sided abdominal pain. He reports that this began around 11:00 after he ate a sandwich from a local grocery store. Since that time, has had 4 episodes of emesis. All nonbloody. No diarrhea or change in bowel habits. Normal urinary habits. States this feels similar to when he had pancreatitis historically. Reports that he had alcoholic beverages this morning but none this evening. No fevers or chills. States it is the maximal pain he is experiencing his abdomen. On exam, patient is notably tachycardic with a heart rate of 134. Otherwise, cardiac exam is normal, lungs are clear. He is quite tender over the mid left abdomen with guarding noted. He reports diffuse tenderness to this area of maximal discomfort. No rebound tenderness. Patient reports this feels similar to his pancreatitis historically. Will obtain baseline labs including a lipase. We will begin hydrating the patient. Will give IV acetaminophen to help with discomfort. Labs reviewed. No leukocytosis. Stable H&H. CMP significant for a gap of 13. Alk phos elevated at 133 which not unusual for the patient. Lipase within normal limits. Alcohol 63. Concern at this time for diverticulitis and this source of his left-sided abdominal pain. Will obtain CT for further evaluation. Discussed plan with patient in agreement. At the end of my shift, care transition to Dr. Blanco with imaging and reassessment pending. <Brett Blanco MD - Last Filed: 10/03/20 01:48> pt remains stable, labs show no significant changes from baseline. CT shows nonspecific stranding around the pancreas and nonspecific thickened gallbladder. PT drinking without issues and was sleeping on reassessment. No ruq tenderness or donouhe's sign so doubt cholecystitis. His symptoms seem chronic and he has follow up with his pcp Wednesday per patient. Pt was given return precautions as well at time of discharge Imaging Data Radiologic Study: Attestation: I personally reviewed and interpreted this imaging study as follows: Imaging: CT Scan Radiologist's impression: IMPRESSION: 1. Nonspecific gallbladder wall thickening. 2. Trace pancreatic stranding could indicate sequela of previous pancreatitis versus minimal acute ongoing pancreatitis Lab Data Lab results reviewed: Yes I reviewed the patient's lab results. HPI <LATOYA Auguste - Last Filed: 10/03/20 08:23> General Date/Time Provider Initiated Documentation: 10/02/20 22:39 . History of Present Illness 60 year old M presents to the emergency department with the chief complaint of left sided abdominal discomfort, described as severe and similar to prior episodes, with intensity rated at 10. Quality is described as stabbing, and is localized to the abdomen. Patient reports no radiation. Patient started experiencing this hour(s) (1100) and it has been constant. No relieving factors improve symptom(s), Eating worsens symptoms . Patient notes loss of appetite and nausea/vomiting; denies chest pain, cough, fever/c hills, rash, shortness of breath and weakness. Patient did receive the following treatments prior to arrival, none Related Data Allergies Allergy/AdvReac Type Severity Reaction Status Date / Time Opioids - Morphine Analogues Allergy Mild urticaria Verified 10/02/20 22:19 Penicillins Allergy Verified 10/02/20 22:19 General Stated Complaint: Abd Prob DMITRI: 2 Review of Systems <LATOYA Auguset - Last Filed: 10/03/20 08:23> Constitutional Constitutional: Reports as per HPI, Denies chills, Denies fatigue, Denies fever(s) and Denies headache(s) ENT Ears, Nose, Mouth, and Throat: Denies headache(s) Cardiovascular Cardiovascular: Reports as per HPI, Denies chest pain and Denies dyspnea Respiratory Respiratory: Reports as per HPI, Denies cough and Denies dyspnea Gastrointestinal Gastrointestinal: Reports as per HPI Genitourinary Genitourinary: Denies system reviewed and no additional complaints, except as documented (patient denies any change in urinary habits) Musculoskeletal Musculoskeletal: Reports as per HPI and Denies back pain Integumentary/Breasts Skin/Breast: Reports as per HPI and Denies rash Neurologic Neurologic: Reports as per HPI and Denies headache(s) Endocrine Endocrine: Denies fatigue PFSH <LATOYA Auguste - Last Filed: 10/03/20 08:23> Medical History Acute UTI Alcohol withdrawal Alcoholic gastritis Alcoholism /alcohol abuse ARDS (adult respiratory distress syndrome) Aspiration pneumonia COVID-19 ruled out by laboratory testing Enterocolitis Fever Ground glass opacity present on imaging of lung HTN (hypertension) Hx of hyperlipidemia Hypokalemia Hypomagnesemia Myocardial infarction x 2 Pancreatitis Pancreatitis, chronic Pneumonia Presence of pancreatic duct stent (~01/2018) [facility] Retention of urine Septal myocardial infarction (01/18/20) probably old, [facility] records Surgical History S/P ERCP (~01/2018) [facility] Family History Mother Alcohol abuse Father Alcohol abuse Social History Smoking/Tobacco Use Status: Current every day Tobacco Type: cigarettes Smoking packs per day: 1 Smoking cigarettes per day: 20.0 Smoking risk assessment performed?: Yes Alcohol Intake: current Alcohol Intake frequency: 3 or more drinks per day Alcohol type: beer Drug use: Never Substance use type: marijuana Housing: apartment Do you feel safe at home: Yes Do you feel safe in your relationship?: Yes Exam <LTAOYA Auguste - Last Filed: 10/03/20 08:23> Const General: cooperative, healthy appearing, no acute distress, well developed and ill appearing chronically Nutritional Appearance: average body habitus and well nourished Orientation: alert and awake HENMT Head: normal to inspection Mouth: mucous membranes dry Resp Effort & Inspection: normal respiratory effort, able to speak in complete sentences and no respiratory distress Auscultation: clear to auscultation bilaterally, no rales, no rhonchi and no wheezes Cardio Rate: tachycardic Rhythm: regular rhythm Heart Sounds: S1 normal and S2 normal GI Inspection: normal to inspection Palpation: soft, no hepatosplenomegaly, not firm, guarding (voluntary) in the LUQ, no hernias, no masses, not rigid and tender (diffusely tender, pain maximal left mid and upper quadrants ) with no rebound tenderness Percussion: normal to percussion Auscultation: normal bowel sounds Back/Spine/Pelvis Back: no CVA tenderness Skin General skin exam: no rashes or lesions noted Trauma: no lacerations or abrasions Neuro General: patient alert and patient awake Cognition: normal cognition Speech: speech normal Gait: normal gait Psych Appearance: grossly normal Mental Status: mental status grossly normal Speech and Movement: speech and movement normal Course <LATOYA Auguste - Last Filed: 10/03/20 08:23> Vital Signs Vital signs: Vital Signs Temperature 36.8 C 10/02/20 22:12 Pulse 134 H 10/02/20 22:12 Respiratory Rate 20 10/02/20 22:12 Blood Pressure 138/87 10/02/20 22:12 Pulse Oximetry 97 10/02/20 22:12 Temperature 36.8 C 10/02/20 22:12 Temperature Source Temporal Artery Scan 10/02/20 22:12 Pulse 134 H 10/02/20 22:12 Respiratory Rate 20 10/02/20 22:12 Respiratory Effort Non-Labored 10/02/20 22:17 Blood Pressure 138/87 10/02/20 22:12 Blood Pressure Position Sitting 10/02/20 22:12 Pulse Oximetry 97 10/02/20 22:12 Oxygen Delivery Method Room Air 10/02/20 22:12 Oxygen Flow Rate 0 10/02/20 22:12 Pain Level 10 10/02/20 22:17 Sign Out <LATOYA Auguste - Last Filed: 10/03/20 08:23> Sign Out Data: Sign Out Comment: Care transitioned to Dr. Blanco with imaging and reassessment pending. Left sided abdominal pain. Normal WBC and liipase. Last updated by Jackie Carrasco PA at 10/03/20 00:16
--- NOTE | 2020-10-02 23:34 | NUR.NOTE ---
2330-Left wrist IV infiltrated. Removed; catheter intact. Will ask ESDRAS Francisco to attempt ultrasound guided IV start.Nursing Note:
[2020-10-02 23:35] LABS: Abs Immature Grans 0.01 10^3/uL (0.0-0.06); Absolute Basophil Count 0.03 10^3/uL (0.0-0.2); Absolute Eosinophil Count 0.03 10^3/uL (0.0-0.7); Absolute Lymphocyte Count 1.34 10^3/uL (1.2-3.4); Absolute Monocyte Count 0.55 10^3/uL (0.1-0.8); Absolute Neutrophil Count 4.36 10^3/uL (1.2-6.7); Basophils % 0.5; Eosinophils % 0.5; HCT 44.4 % (40.0-50.0); HGB 14.9 g/dL (13.5-17.5); Immature Grans % 0.2; Lymphocytes % 21.2; MCH 31.2 pg (27.0-33.0); MCHC 33.6 % (32.0-36.0); MCV 92.9 fL (80-95); Monocytes % 8.7; Neutrophils % 68.9; Nucleated RBC 0 %; RBC 4.78 10^6/uL (4.36-5.78); RDW 14.6 % (11.8-14.1); WBC 6.32 10^3/uL (4.4-10.8)
[2020-10-02 23:46] LABS: ETHANOL BLOOD 63.5 mg/dL (<3)
[2020-10-02 23:49] LABS: ALT 21 U/L (16-63); AST 29 U/L (15-37); Alkaline Phosphatase 133 U/L (46-116); Anion Gap 13.1 mmol/L (3-11); BUN 3 mg/dL (7-18); Bilirubin, Total 0.4 mg/dL (0.2-1.0); CO2 18.9 mmol/L (21.0-32.0); CREATININE 0.7 mg/dL (0.70-1.30); Calcium 8.4 mg/dL (8.5-10.1); Chloride 104 mmol/L (98-107); Glucose 190 mg/dL (74-106); Lipase 378 U/L (73-393); Sodium 136 mmol/L (136-145); Total Protein 7.2 g/dL (6.4-8.2)
[2020-10-02] MEDS: ACETAMINOPHEN 1,000 MG/100 ML BTL 400 MG IVPB (23:53)
[2020-10-03] VITALS (12 sets, daily range): BP systolic 133–163; BP diastolic 82–85; PULSE 106–124; RESP 15–27; O2SAT 96–98
--- NOTE | 2020-10-03 00:37 | DI.CT_ITS ---
Exam(s) CT ABDOMEN PELVIS W EXAM: CT ABDOMEN PELVIS W CLINICAL HISTORY: LUQ pain, similar to previous pancreatitis TECHNIQUE: Imaging Protocol: Axial computed tomography images with coronal and sagittal reformatted images were created and reviewed CONTRAST MATERIAL: Intravenous: Omnipaque 350 Contrast volume:100 mL Oral: No COMPARISON: CT CT ABDOMEN PELVIS W from 09/03/2020 FINDINGS: ABDOMEN: Lung Bases: Dependent atelectasis. Liver: Normal density. No measurable mass. Portal, Superior Mesenteric, and Splenic Veins: Unremarkable. Gallbladder and Biliary Tract: The gallbladder wall is thickened, although the gallbladder is contrac ricardo. No biliary ductal dilatation. Pancreas: There are again seen calcifications throughout the pancreas suggesting chronic pancreatitis . No pancreatic mass. There is unchanged dilatation of the pancreatic duct. There may be mild infl ammatory stranding around the head of the pancreas. No peripancreatic fluid collection is seen. Spleen: Normal. Adrenals: No masses seen. Kidneys: Normal size, contour and axis. No radiodense stones or obstructive uropathy. No masses seen. Abdominal Aorta: Abdominal portion non-dilated. Marked atherosclerosis. Bowel: No evidence of bowel obstruction. There is mild thickening of the wall of the proximal small bowel and distal duodenum. This may represent a mild inflammatory infectious process. Appendix is u nremarkable. Colonic diverticulosis, but no evidence of acute diverticulitis. Peritoneal Cavity: No ascites, collection or mesenteric inflammatory response. No free air. Lymph Nodes: Within normal limits. Bones: Within normal limits for the patient's age. Soft Tissues: Unremarkable. PELVIS: Bladder: Symmetric distention, no gross wall thickening. Reproductive Organs: Unremarkable as visualized. Lymph Nodes: Within normal limits. Bones: Within normal limits for the patient's age. IMPRESSION: 1. Question of mild stranding around the head of the pancreas. A mild acute pancreatitis cannot be e xcluded. No peripancreatic fluid collections are seen. 2. Findings of chronic pancreatitis. 3. Gallbladder wall thickening which may in part be due to contracted gallbladder, but gallbladder ul trasound may be considered for further evaluation. 4. Question of mild thickening of the wall of the proximal small bowel and distal duodenum. A mild i nfectious or inflammatory enteritis cannot be excluded. Please correlate clinically. RADIATION DOSE DELIVERED: 783.22mGy.cm Total DLP DATA REPOSITORY: All CT scans at this facility are submitted to the National Radiology Data Registry (NRDR) Dose Index Registry (DIR) with the [employer] (A[employer]). RADIATION OPTIMIZATION: All CT scans at this facility use at least one of these dose optimization te chniques: automated exposure control; mA and/or kV adjustment per patient size (includes targeted exa ms where dose is matched to clinical indication); or iterative reconstruction.
[2020-10-03] MEDS: Normal Saline - Diluent 50 ML VIAL IV (00:38)
[2020-10-03] MEDS: Omnipaque 350 MG/ML 100 ML BTL IJ (00:38)
[2020-10-03] MEDS: Normal Saline Flush 10 ML SYR IVP (00:39)
--- NOTE | 2020-10-03 01:28 | DI.VRAD_ITS ---
PROCEDURE INFORMATION: Exam: CT Abdomen And Pelvis With Contrast Exam date and time: 10/03/2020 12:11 AM Age: 60 years old Clinical indication: Other: Luq pain, similar to previous pancreatitis TECHNIQUE: Imaging protocol: Computed tomography of the abdomen and pelvis with contrast. Radiation optimization: All CT scans at this facility use at least one of these dose optimization techniques: automated exposure control; mA and/or kV adjustment per patient size (includes targeted exams where dose is matched to clinical indication); or iterative reconstruction. Contrast material: OMNIPAQUE 350; Contrast volume: 100 ml; Contrast route: INTRAVENOUS (IV); COMPARISON: CT ABDOMEN PELVIS W 09/03/2020 2:08 AM FINDINGS: Liver: Normal. No mass. Gallbladder and bile ducts: Gallbladder wall thickening. Pancreas: Calcifications and ductal dilatation of the pancreas with mild pancreatic atrophy, suggests sequela of chronic pancreatitis and is unchanged since previous study. Trace pancreatic stranding could indicate sequela of previous pancreatitis versus minimal acute ongoing pancreatitis. Spleen: Normal. No splenomegaly. Adrenal glands: Normal. No mass. Kidneys and ureters: Normal. No hydronephrosis. Stomach and bowel: Colonic diverticula. Appendix: No evidence of appendicitis. Intraperitoneal space: Unremarkable. No free air. No significant fluid collection. Vasculature: Unremarkable. No abdominal aortic aneurysm. Lymph nodes: Unremarkable. No enlarged lymph nodes. Urinary bladder: Unremarkable as visualized. Reproductive: Unremarkable as visualized. Bones/joints: Unremarkable. No acute fracture. Soft tissues: Unremarkable. IMPRESSION: 1. Nonspecific gallbladder wall thickening. 2. Trace pancreatic stranding could indicate sequela of previous pancreatitis versus minimal acute ongoing pancreatitis. Dictated and Authenticated by: Brett Rebolledo MD. Ordering:ANEL Mejia MD
--- NOTE | 2020-10-03 02:02 | NUR.NOTE ---
0140-RCT called for patient transport. to return call 0152-Call return, info provided. Plan to allow patient to sit in waiting room, RCT attempting to find boat driver.Nursing Note:
--- NOTE | 2020-10-03 06:27 | NUR.NOTE ---
0627-RCT called for patient transport update. To attempt to contact garbage collector driver again. 0330-RCT reports only one electronic warfare operator garbage collector driver during the night, one text and two voicemails left. 0152-RCT returns call, will attempt to find garbage collector driver. 0140-RCT called to arrange for patient transport home.Nursing Note:
== END 2020-10-03 02:06 | disposition home or self-care (01) ==
PROVIDERS: Physician Assistant; Emergency Provider Emergency Medicine; PCP Family Medicine
DX: K29.20 Alcoholic gastritis without bleeding (principal); F10.20 Alcohol dependence, uncomplicated; R10.9 Unspecified abdominal pain
CPT/HCPCS: 36415; 80053; 83690; 96361; 96365; 96366; 99285; 74177; 80320; 83735; 85025; 99284; J0131; J3490

== ENCOUNTER 2020-10-19 22:54 | Inpatient (IN) | payer MEDICAID, SELFPAY ==
[2020-10-19 22:55] VITALS: BP 174/93; PULSE 90; RESP 23; O2SAT 100
--- NOTE | 2020-10-19 22:59 | W.ED.GENAD ---
Discharge Plan Disposition Patient Disposition: [facility] INPATIENT Condition: Fair Discharge Details Clinical Impression: Acute on chronic pancreatitis Admit Date/Time: 10/20/20 01:00 Admit Provider: Alejo Larson Attending Provider: Alejo Larson Primary Care Provider: Benjamin Bustillos ED Provider: Jose Luis Zhong Discharge Data Discharge Date/Time-TO BE ENTERED AT DEPARTURE: 10/20/20 01:50 Medical Decision Making <LATOYA Lanza - Last Filed: 10/20/20 16:57> 60-year-old gentleman who reports acute on chronic abdominal pain worse today after eating rich foods. He filled 7 hydrocodone yesterday, is out. Has not drank alcohol in 7 days. Clinically he appears well, nontoxic, is afebrile, pulse in the 90s, presents slightly hypertensive. Plan is to obtain IV access, give IV fluids, Zofran, IV Tylenol and obtain routine laboratory values. Differential includes not excluded to biliary colic, pancreatitis, peptic ulcer disease, alcoholic gastritis, gastroenteritis, etc. Medical Records Medical records reviewed: Yes I reviewed the patient's medical records. <Jose Luis Zhong MD - Last Filed: 10/20/20 00:39> Patient signed out to me pending laboratory results. Patient well-known to ED and myself. Presenting with worsening abdominal pain and vomiting consistent with previous flares of his chronic pancreatitis. Patient initially seen by LATOYA Serna, please see his initial note. Patient's vomiting has resolved with Zofran. Pain continues and lipase is elevated up over 900. Typically when this occurs he requires a couple day admission to quiet things down. Patient will be made n.p.o. Continue IV fluids. Will dose with Dilaudid for pain control. Will discuss with hospitalist for admission. Medical Records Medical records reviewed: Yes I reviewed the patient's medical records. Lab Data Lab results reviewed: Yes I reviewed the patient's lab results. HPI <LATOYA Lanza - Last Filed: 10/20/20 16:57> General Mode of arrival: EMS. Date/Time Provider Initiated Documentation: 10/19/20 22:56. Limitations to Documentation: no limitations. Information obtained by: patient and EMS. HPI Narrative: This is a 60-year-old gentleman, past medical history that includes alcohol use and alcohol gastritis, reports sober for the last 7 days, hypertension, pancreatitis, chronic abdominal pain, current smoker, presenting to the ER for abdominal pain, nausea and vomiting. Patient states that he has been having a light diet over the past few days, primarily soup, but today attended a heavier diet. Had a rich foods, sausage, etc., soon after began having diffuse abdominal pain, crampy, but primarily in his epigastric region, sharp and burning. He denies headache, fever, chest pain, shortness of breath, back pain, dysuria, diarrhea or constipation. Patient states that he filled 7 hydrocodone on Wednesday and is now out of the medication. He states that typically when he has pain is severe he requires Dilaudid. Patient states this feels very similar to his previous episodes of pancreatitis Related Data Home Medications Medication Instructions Recorded Confirmed metoclopramide HCl 5 mg tablet 5 mg PO QAC #30 tab 10/04/20 10/19/20 omeprazole 40 mg capsule,delayed 40 mg PO DAILY #90 cap 10/04/20 10/19/20 release hydrocodone 7.5 mg-acetaminophen 1 tab PO BID PRN #14 tab MDD 15 mg 10/17/20 10/19/20 325 mg tablet Previous Rx's Medication Instructions Recorded metoclopramide HCl 5 mg tablet 5 mg PO QAC #30 tab 10/04/20 omeprazole 40 mg capsule,delayed 40 mg PO DAILY #90 cap 10/04/20 release hydrocodone 7.5 mg-acetaminophen 1 tab PO BID PRN #14 tab MDD 15 mg 10/17/20 325 mg tablet Allergies Allergy/AdvReac Type Severity Reaction Status Date / Time Penicillins Allergy Verified 10/19/20 22:59 General Stated Complaint: Abd Prob DMITRI: 3 Review of Systems <LATOYA Lanza - Last Filed: 10/20/20 16:57> Constitutional Constitutional: Denies fatigue, Denies fever(s) and Denies headache(s) ENT Ears, Nose, Mouth, and Throat: Denies headache(s) and Denies neck pain Cardiovascular Cardiovascular: Denies chest pain and Denies dyspnea Respiratory Respiratory: Denies cough and Denies dyspnea Gastrointestinal Gastrointestinal: Reports abdominal pain, Denies constipation, Denies diarrhea, Reports nausea and Reports vomiting Genitourinary Genitourinary: Denies dysuria Musculoskeletal Musculoskeletal: Denies back pain and Denies neck pain Integumentary/Breasts Skin/Breast: Denies rash Neurologic Neurologic: Denies headache(s) Endocrine Endocrine: Denies fatigue PFSH <LATOYA Lanza - Last Filed: 10/20/20 16:57> Medical History Acute UTI Alcohol withdrawal Alcoholic gastritis Alcoholism /alcohol abuse ARDS (adult respiratory distress syndrome) Aspiration pneumonia COVID-19 ruled out by laboratory testing Enterocolitis Fever Ground glass opacity present on imaging of lung HTN (hypertension) Hx of hyperlipidemia Hypokalemia Hypomagnesemia Myocardial infarction x 2 Pancreatitis Pancreatitis, chronic Pneumonia Presence of pancreatic duct stent (~01/2018) [place] [place] Retention of urine Septal myocardial infarction (01/18/20) probably old, [facility] records Surgical History S/P ERCP (~01/2018) [place] Family History Mother Alcohol abuse Father Alcohol abuse Social History Smoking/Tobacco Use Status: Current every day Tobacco Type: cigarettes Smoking packs per day: 1 Smoking cigarettes per day: 20.0 Smoking risk assessment performed?: Yes Alcohol Intake: current Alcohol Intake frequency: 3 or more drinks per day Alcohol type: beer Drug use: Never Substance use type: does not use Details: States last drink was a week and a half ago. Housing: apartment Do you feel safe at home: Yes Do you feel safe in your relationship?: Yes Exam <LATOYA Lanza - Last Filed: 10/20/20 16:57> Const General: cooperative, healthy appearing and no acute distress Orientation: alert, awake and oriented x3 HENMT Head: normal to inspection, normocephalic and atraumatic Face and sinus: normal facial exam Mouth: moist mucous membranes Eyes General: appearance normal, both eyes and all related structures Conjunctivae: conjunctivae normal Neck Neck: normal visual inspection, trachea midline and supple Resp Effort & Inspection: normal respiratory effort and able to speak in complete sentences Auscultation: clear to auscultation bilaterally Cardio Rate: regular rate Rhythm: regular rhythm GI Inspection: normal to inspection Palpation: soft, not firm, no guarding, no pulsatile masses and tender (Diffuse, worse in the epigastric region) Auscultation: normal bowel sounds Back/Spine/Pelvis Back: No back tenderness Skin General skin exam: no rashes or lesions noted Neuro General: patient alert, patient awake, moves all extremities and no focal motor deficits Cognition: normal cognition Speech: speech normal Gait: normal gait Sensory Exam: no sensory deficits noted Extrem General: normal to inspection, full ROM and capillary refill normal Psych Appearance: grossly normal Mental Status: mental status grossly normal Course <LATOYA Lanza - Last Filed: 10/20/20 16:57> Vital Signs Vital signs: Vital Signs Pulse 90 10/19/20 22:55 Respiratory Rate 23 10/19/20 22:55 Blood Pressure 174/93 H 10/19/20 22:55 Pulse Oximetry 100 10/19/20 22:55 Pulse 90 10/19/20 22:55 Respiratory Rate 23 10/19/20 22:55 Blood Pressure 174/93 H 10/19/20 22:55 Blood Pressure Position Supine 10/19/20 22:55 Pulse Oximetry 100 10/19/20 22:55 Oxygen Delivery Method Room Air 10/19/20 22:55 Oxygen Flow Rate 0 10/19/20 22:55 Pain Level 10 10/19/20 22:55 Sign Out <LATOYA Lanza - Last Filed: 10/20/20 16:57> Sign Out Data: Sign Out Comment: Acute on chronic abdominal pain. CBC resulted in no evidence of leukocytosis. Receiving IV Tylenol and Zofran. If labs are unremarkable likely p.o. challenge and DC Last updated by Elias Serna PA at 10/19/20 23:52
[2020-10-19] MEDS: Normal Saline 1,000 ML 1000 ML IV (23:34)
[2020-10-19] MEDS: Ondansetron 4 MG/2 ML VIAL IVP (23:35)
[2020-10-19 23:37] LABS: Abs Immature Grans 0.03 10^3/uL (0.0-0.06); Absolute Basophil Count 0.03 10^3/uL (0.0-0.2); Absolute Eosinophil Count 0.06 10^3/uL (0.0-0.7); Absolute Lymphocyte Count 1.35 10^3/uL (1.2-3.4); Absolute Monocyte Count 0.61 10^3/uL (0.1-0.8); Absolute Neutrophil Count 6.15 10^3/uL (1.2-6.7); Basophils % 0.4; Eosinophils % 0.7; HCT 43.8 % (40.0-50.0); HGB 14.2 g/dL (13.5-17.5); Immature Grans % 0.4; Lymphocytes % 16.4; MCH 31.1 pg (27.0-33.0); MCHC 32.4 % (32.0-36.0); MCV 96.1 fL (80-95); MPV 9.5 fL (8.0-11.0); Monocytes % 7.4; Neutrophils % 74.7; Nucleated RBC 0 %; Platelet Count 241 10^3/uL (130-400); RBC 4.56 10^6/uL (4.36-5.78); RDW 15.3 % (11.8-14.1); RDW-SD 54.8 fL; WBC 8.23 10^3/uL (4.4-10.8)
[2020-10-19] MEDS: ACETAMINOPHEN 1,000 MG/100 ML BTL 400 MG IVPB (23:37)
[2020-10-19 23:50] LABS: ALT 19 U/L (16-63); AST 19 U/L (15-37); Albumin 3.2 g/dL (3.4-5.0); Alkaline Phosphatase 91 U/L (46-116); Anion Gap 9.1 mmol/L (3-11); BUN 7 mg/dL (7-18); Bilirubin, Total 0.5 mg/dL (0.2-1.0); CO2 25.9 mmol/L (21.0-32.0); CREATININE 0.7 mg/dL (0.70-1.30); Calcium 8.5 mg/dL (8.5-10.1); Chloride 105 mmol/L (98-107); Glucose 130 mg/dL (74-106); Lipase 998 U/L (73-393); Potassium 3.5 mmol/L (3.5-5.1); Sodium 140 mmol/L (136-145); Total Protein 7.1 g/dL (6.4-8.2)
[2020-10-19 23:58] LABS: ETHANOL BLOOD < 3.0 mg/dL (<3)
[2020-10-20 00:30] VITALS: BP 169/85; PULSE 80; RESP 18; O2SAT 97
[2020-10-20] MEDS: HYDROmorphone 2 MG/ML VIAL 1 MG IVP ×5 (00:41→22:39)
[2020-10-20] MEDS: Normal Saline 1,000 ML 150 ML IV (00:43)
--- NOTE | 2020-10-20 00:48 | W.PM.HP.N ---
Date of service: 10/20/20 Time of Service: 00:48 Assessment and Plan Assessment and plan (1) Acute on chronic pancreatitis: Status: Acute Assessment and plan: Acute on chronic pancreatitis, unclear if EtOH may have been contributing or if this is more dietary indiscretion. In any case will maintain NPO with IVF and prn analgesics and antiemetics. I would concur that further imaging is probably not necessary at this point as the clinical diagnosis would seem to be sufficiently secure. History of Present Illness History of Present Illness Chief Complaint: abd pain Narrative: 60 male with chronic pancreatitis. Reports last drink 10 days ago, had been doing well on light diet -- until today, had rich foods and has since developed epigastric pain radiating to back and lower abdomen, and nausea, typical for his episodes of acute pancreatitis. Here in ER findings of note for lack of fever, normal white count, lipase>900 and normal transaminases. There was no imaging performed as he had had recent CT and it was additionally felt that a clinical diagnosis was sufficiently secure given the frequent and typical nature of his presentation. Urinalysis is pending. EtOH undetectable. He has been given Zofran and Dilaudid and is admitted for further management. Review of Systems All systems reviewed & are unremarkable except as noted in HPI and below PFSH Medical History Acute UTI Alcohol withdrawal Alcoholic gastritis Alcoholism /alcohol abuse ARDS (adult respiratory distress syndrome) Aspiration pneumonia COVID-19 ruled out by laboratory testing Enterocolitis Fever Ground glass opacity present on imaging of lung HTN (hypertension) Hx of hyperlipidemia Hypokalemia Hypomagnesemia Myocardial infarction x 2 Pancreatitis Pancreatitis, chronic Pneumonia Presence of pancreatic duct stent (~01/2018) [place]. Retention of urine Septal myocardial infarction (01/18/20) probably old, [facility] records Surgical History S/P ERCP (~01/2018) [place]. Family History Mother Alcohol abuse Father Alcohol abuse Social History Smoking/Tobacco Use Status: Current every day Tobacco Type: cigarettes Smoking packs per day: 1 Smoking cigarettes per day: 20.0 Smoking risk assessment performed?: Yes Alcohol Intake: current Alcohol Intake frequency: 3 or more drinks per day Alcohol type: beer Drug use: Never Substance use type: does not use Details: States last drink was a week and a half ago. Housing: apartment Do you feel safe at home: Yes Do you feel safe in your relationship?: Yes Meds Allergies and Home Medications Allergies Allergy/AdvReac Type Severity Reaction Status Date / Time Penicillins Allergy Verified 10/19/20 22:59 Home Medications Medication Instructions Recorded Confirmed Type metoclopramide HCl 5 mg tablet 5 mg PO QAC #30 tab 10/04/20 10/19/20 Rx omeprazole 40 mg capsule,delayed 40 mg PO DAILY #90 cap 10/04/20 10/19/20 Rx release hydrocodone 7.5 mg-acetaminophen 1 tab PO BID PRN #14 tab MDD 15 mg 10/17/20 10/19/20 Rx 325 mg tablet Exam Narrative Exam Narrative: 174/93, 90, 36.3, 23, 100% RA. HEENT atraumatic; neck supple; lungs clear; heartRRR; abdomen + BS, soft, moderate epigastric tenderness w/o rebound; extremities w/o edema; neuro Ox3, lucid, moves all 4s Results Labs Result diagrams: 10/19/20 23:30 10/19/20 23:30 Labs: Laboratory Results - last 24 hr 10/19/20 10/19/20 10/19/20 23:30 23:30 23:30 WBC 8.23 RBC 4.56 Hgb 14.2 Hct 43.8 MCV 96.1 H MCH 31.1 MCHC 32.4 RDW 15.3 H Plt Count 241 MPV 9.5 Immature Gran % 0.4 Neutrophils % 74.7 Lymphocytes % 16.4 Monocytes % 7.4 Eosinophils % 0.7 Basophils % 0.4 Nucleated RBC % 0 Absolute Neutrophils 6.15 Absolute Lymphocytes 1.35 Absolute Monocytes 0.61 Absolute Eosinophils 0.06 Absolute Basophils 0.03 Sodium 140 Potassium 3.5 Chloride 105 Carbon Dioxide 25.9 Anion Gap 9.1 BUN 7 Creatinine 0.7 Estimated GFR/1.73 m2 >= 60.00 Glucose 130 H Calcium 8.5 Total Bilirubin 0.5 AST 19 ALT 19 Alkaline Phosphatase 91 Total Protein 7.1 Albumin 3.2 L Lipase 998 H Ethyl Alcohol < 3.0 Last Vital Signs Pulse 90 10/19/20 22:55 Resp 23 10/19/20 22:55 BP 174/93 H 10/19/20 22:55 Pulse Ox 100 10/19/20 22:55
[2020-10-20 01:00] VITALS: BP 166/78; PULSE 76; RESP 18; O2SAT 97
[2020-10-20 01:46] LABS: Source Nasal/Nares
[2020-10-20] MEDS: HYDROmorphone 2 MG/ML VIAL IVP ×2 (02:22→05:40)
[2020-10-20 02:35] LABS: COVID-19 PCR Negative (Negative)
[2020-10-20] MEDS: Nicotine 21 MG/24 HR PATCH TD (02:40)
[2020-10-20] MEDS: Pantoprazole 40 MG VIAL IVP (02:41)
[2020-10-20] MEDS: Lactated Ringers 1,000 ML 150 ML IV ×4 (02:41→22:07)
[2020-10-20 02:43] VITALS: BP 169/86; PULSE 76; RESP 18; TEMP 36.6; O2SAT 98
[2020-10-20 07:05] LABS: HCT 41.5 % (40.0-50.0); HGB 13.3 g/dL (13.5-17.5); MCH 31.2 pg (27.0-33.0); MCV 97.4 fL (80-95); MPV 10.1 fL (8.0-11.0); Platelet Count 202 10^3/uL (130-400); RBC 4.26 10^6/uL (4.36-5.78); RDW 15.3 % (11.8-14.1); RDW-SD 55.7 fL; WBC 7.39 10^3/uL (4.4-10.8)
[2020-10-20 07:15] VITALS: BP 151/88; PULSE 83; RESP 16; TEMP 36.4; O2SAT 95
[2020-10-20 07:35] LABS: Anion Gap 7.4 mmol/L (3-11); BUN 5 mg/dL (7-18); CO2 25.6 mmol/L (21.0-32.0); CREATININE 0.6 mg/dL (0.70-1.30); Calcium 7.9 mg/dL (8.5-10.1); Chloride 108 mmol/L (98-107); Glucose 93 mg/dL (74-106); Lipase 282 U/L (73-393); Potassium 3.8 mmol/L (3.5-5.1); Sodium 141 mmol/L (136-145)
[2020-10-20] MEDS: Normal Saline Flush 10 ML SYR IVP ×4 (09:31→22:40)
[2020-10-20 15:46] VITALS: BP 166/90; PULSE 90; RESP 16; TEMP 37; O2SAT 96
[2020-10-21 04:00] VITALS: BP 154/108; PULSE 82; RESP 18; TEMP 36.7; O2SAT 99
[2020-10-21] MEDS: HYDROmorphone 2 MG/ML VIAL 1 MG IVP ×4 (04:15→21:58)
[2020-10-21] MEDS: Pantoprazole 40 MG VIAL IVP (04:16)
[2020-10-21] MEDS: Lactated Ringers 1,000 ML 150 ML IV ×2 (04:17→11:14)
[2020-10-21] MEDS: Normal Saline Flush 10 ML SYR IVP ×5 (04:17→22:53)
[2020-10-21 08:01] VITALS: BP 165/82; PULSE 79; RESP 18; TEMP 36.6; O2SAT 98
--- NOTE | 2020-10-21 08:29 | INITIAL_ITS ---
- If Service Date Differs Date of service: 10/21/20 Time of Service: 08:29 Care Management Initial Assess REASON FOR HOSPITALIZATION:: Pancreatitis. PAST MEDICAL HISTORY/PAST SURGICAL HISTORY:: Medical History: Acute UTI, Alcohol withdrawal, Alcoholic gastritis,. Alcoholism /alcohol abuse, ARDS (adult respiratory distress syndrome),. Aspiration pneumonia, COVID-19 ruled out by laboratory testing,. Enterocolitis, Fever, Ground glass opacity present on imaging of lung,. HTN (hypertension), Hx of hyperlipidemia, Hypokalemia, Hypomagnesemia, Myocardial infarction x 2, Pancreatitis, Pancreatitis, chronic, Pneumonia,. Presence of pancreatic duct [place]2018[place] Retention of urine, and Septal myocardial infarction (01/18/20) probably old, [facility] records. Surgical History: S/P [place] PREVIOUS FUNCTIONAL STATUS/SOCIAL/FAMILY SUPPORTS:: Juan Jose, who goes by Kal, lives independently in an apartment in [place]. He does not drive and relies on [facility] to get him to appointments. He has no family locally but states he has lots of support from several community providers and from his neighbors. CURRENT FUNCTIONAL STATUS:: Kal is laying in bed watching t.v. when CM enters his room. He is pleasant and talkative. He shares he has not touched a drop of alcohol in 14 days and attributes the pancreatitis flare-up to something he ate. He had an appointment scheduled on 09/11/20 at [facility] for an ERCP procedure but he missed the appointment. CM will continue to follow. ADVANCE DIRECTIVES:: None on file. Juan Jose has the form at home but has not yet completed it. Has patient been provided with info about the portal/API?: Yes Did the patient sign up for the portal?: No CODE STATUS:: Full Code INSURANCE COVERAGE / FINANCIAL ISSUES:: Medicaid. CURRENT HOME/COMMUNITY SERVICES/EQUIPMENT:: Juan Jose has a [facility] rn case manager (Nicole Manley RN) and a Senior Digital Designer (Katt) through [facility]. He has a cane at home but ambulates without it. A phone conversation with Nicole, [facility] rn case manager, reveals that she helped him obtain food stamps as food insecurity has been an issue for him in the past. Kal also lives within walking distance of the meal site at the [facility] and he knows that is an option available to him, though she doesn't believe he has gone to the meal site yet. PRIMARY CARE PHYSICIAN:: Benjamin Bustillos DO. POTENTIAL DISCHARGE NEEDS:: Follow up appointment with PCP and discharge plan of care. PATIENT/FAMILY EDUCATION NEEDS:: Discharge instructions, limitations, and follow up plan of care, including [employer] Me [employer]. ANTICIPATED BARRIERS TO DISCHARGE:: None. TRANSPORTATION:: Via [facility] coordinated by CM. PLAN:: Anticipate Juan Jose will be discharged home with no new services when medically cleared by provider. He will follow up with his PCP, [facility] rn case manager, Senior Digital Designer, and discharge plan of care as directed. He has a scheduled telephone call with Nicole Manley RN, of [facility], on Wednesday, October 23, 2020, at noon. He will be driven home by an [facility] private substitute bus driver when ready. CM will continue to follow.
[2020-10-21 09:46] LABS: Anion Gap 13.2 mmol/L (3-11); BUN 4 mg/dL (7-18); CO2 23.8 mmol/L (21.0-32.0); CREATININE 0.5 mg/dL (0.70-1.30); Chloride 103 mmol/L (98-107); Glucose 68 mg/dL (74-106); Sodium 140 mmol/L (136-145)
[2020-10-21 10:57] LABS: Bilirubin Negative (Negative); Blood Negative (Negative); Clarity Clear (Clear); Glucose Negative (Negative); Ketones 40 mg/dL (Negative); Leukocyte Esterase Negative (Negative); Nitrite Negative (Negative); Urobilinogen 0.2 EU/dL (Up TO 0.2)
[2020-10-21] MEDS: traMADol 50 MG TAB PO ×2 (12:06→20:05)
--- NOTE | 2020-10-21 12:47 | NUR.NOTE ---
Nursing Note: Patient noted to be lying in bed , he is in a relaxed posture. When previously given pain medication was reassessed, he stated that it was not effective
--- NOTE | 2020-10-21 12:51 | NUR.NOTE ---
Nursing Note: when discissing smoking hx with patient, he did state he had an interest in cessation.
[2020-10-21 15:23] VITALS: BP 164/80; PULSE 60; RESP 16; TEMP 36.6; O2SAT 98
--- NOTE | 2020-10-21 18:05 | W.PM.PROGNOT ---
Date of Service Date of service: 10/21/20 Time of Service: 18:06 Assessment and Plan Assessment and plan (1) Acute on chronic pancreatitis: Start date: 10/21/20 Start time: 11:00 Status: Acute Assessment and plan: Patient is a big drinker. Today when auscultating abd and pushing no pain was ilicitated. Increased interval of pain medication from 3 to 6 hours with tramadol to be used first He denies n/v he was able to tolerate soft diet for lunch will give regular low fat diet for dinner with possible discharge home in the am. Missed his appt with [facility] because he states no ride though one was set up for him and he did not feel good. MVI, folic acid and thiamine (2) Alcohol abuse: Start date: 10/21/20 Start time: 18:12 Status: Chronic Assessment and plan: He refuses to stop drinking he has a health coach and is service connected. (3) GERD (gastroesophageal reflux disease): Start date: 10/21/20 Start time: 18:13 Status: Chronic Assessment and plan: Protonix daily Qualifiers: Esophagitis presence: esophagitis presence not specified Qualified Code(s): K21.9 - Gastro-esophageal reflux disease without esophagitis (4) Abdominal pain: Start date: 10/21/20 Start time: 18:14 Status: Acute Assessment and plan: as above (5) DVT prophylaxis: Start date: 10/21/20 Start time: 18:15 Status: Acute Assessment and plan: Heparin sub cu (6) Discharge planning issues: Start date: 10/21/20 Start time: 18:16 Status: Acute Assessment and plan: discharge home he is service connected with many services set up by Cm discussed by CM Subjective Subjective Patient reports: feels better Interval history since last seen: Pain improved, trial regular low fat diet. Increase interval of pain meds with tramadol first. When assessing and listening and pushing on gut no pain or grimacing. Patient possible d/c in am Exam Const General: cooperative, healthy appearing and no acute distress Orientation: alert, awake and oriented x3 HENMT Head: normal to inspection, normocephalic and atraumatic Face and sinus: normal facial exam Mouth: moist mucous membranes Eyes General: appearance normal, both eyes and all related structures Conjunctivae: conjunctivae normal Neck Neck: normal visual inspection, trachea midline and supple Resp Effort & Inspection: normal respiratory effort and able to speak in complete sentences Auscultation: clear to auscultation bilaterally Cardio Rate: regular rate Rhythm: regular rhythm GI Inspection: normal to inspection Palpation: soft, no hepatosplenomegaly, not firm, no guarding, no pulsatile masses and nontender (when listening with stethscope and pushing no pain illicited) Auscultation: normal bowel sounds Back/Spine/Pelvis Back: No back tenderness Skin General skin exam: no rashes or lesions noted Neuro General: patient alert, patient awake, moves all extremities and no focal motor deficits Cognition: normal cognition Speech: speech normal Gait: normal gait Sensory Exam: no sensory deficits noted Extrem General: normal to inspection, full ROM and capillary refill normal Psych Appearance: grossly normal Mental Status: mental status grossly normal Objective Last Vital Signs Temp 36.6 C 10/21/20 15:23 Pulse 60 10/21/20 15:23 Resp 16 10/21/20 15:23 BP 164/80 H 10/21/20 15:23 Pulse Ox 98 10/21/20 15:23 Laboratory Results - last 24 hr 10/21/20 10/21/20 08:45 10:30 Sodium 140 Potassium 4.0 Chloride 103 Carbon Dioxide 23.8 Anion Gap 13.2 H BUN 4 L Creatinine 0.5 L Estimated GFR/1.73 m2 >= 60.00 Glucose 68 L Calcium 8.0 L Urine Color Yellow Urine Clarity Clear Urine pH 7.0 Ur Specific [place] 1.020 Urine Protein Negative Urine Ketones 40 H Urine Blood Negative Urine Nitrite Negative Urine Bilirubin Negative Urine Urobilinogen 0.2 Ur Leukocyte Esterase Negative Urine Glucose Negative
[2020-10-21 19:18] LABS: HGB 13.7 g/dL (13.5-17.5); MCH 31.3 pg (27.0-33.0); MCHC 32.6 % (32.0-36.0); MCV 95.9 fL (80-95); MPV 9.8 fL (8.0-11.0); Platelet Count 198 10^3/uL (130-400); RBC 4.38 10^6/uL (4.36-5.78); RDW-SD 53.8 fL; WBC 3.94 10^3/uL (4.4-10.8)
[2020-10-21] MEDS: Heparin 5,000 UNITS/ML VIAL 5000 UNITS SC (20:04)
[2020-10-21 23:21] VITALS: BP 163/83; PULSE 71; RESP 18; TEMP 36.6; O2SAT 97
[2020-10-22] MEDS: HYDROmorphone 2 MG/ML VIAL 1 MG IVP ×2 (05:07→11:05)
[2020-10-22] MEDS: Normal Saline Flush 10 ML SYR IVP ×3 (05:08→11:05)
[2020-10-22 07:28] LABS: HCT 40.3 % (40.0-50.0); HGB 13.2 g/dL (13.5-17.5); MCHC 32.8 % (32.0-36.0); MCV 94.6 fL (80-95); MPV 9.5 fL (8.0-11.0); Platelet Count 189 10^3/uL (130-400); RBC 4.26 10^6/uL (4.36-5.78); RDW 14.8 % (11.8-14.1); RDW-SD 51.7 fL; WBC 3.57 10^3/uL (4.4-10.8)
[2020-10-22] MEDS: Thiamine 100 MG TAB PO (07:42)
[2020-10-22] MEDS: Folic Acid 1 MG TAB PO (07:42)
[2020-10-22] MEDS: Acetaminophen 500 MG TAB PO (07:42)
[2020-10-22] MEDS: Multivitamin TAB 1 TAB PO (07:42)
[2020-10-22] MEDS: Pantoprazole 40 MG TABCR PO (07:42)
[2020-10-22] MEDS: Heparin 5,000 UNITS/ML VIAL 5000 UNITS SC (07:43)
[2020-10-22] MEDS: traMADol 50 MG TAB PO (07:43)
[2020-10-22 07:46] VITALS: BP 163/91; PULSE 62; RESP 15; TEMP 36.3; O2SAT 99
[2020-10-22 08:29] LABS: Anion Gap 11.1 mmol/L (3-11); BUN 4 mg/dL (7-18); CO2 26.9 mmol/L (21.0-32.0); CREATININE 0.6 mg/dL (0.70-1.30); Calcium 7.8 mg/dL (8.5-10.1); Chloride 101 mmol/L (98-107); Glucose 103 mg/dL (74-106); Potassium 3.9 mmol/L (3.5-5.1); Sodium 139 mmol/L (136-145)
--- NOTE | 2020-10-22 14:41 | W.PM.DS.N ---
Date of service: 10/22/20 Time of Service: 14:41 DS: Diagnosis Discharge Diagnosis (1) Acute on chronic pancreatitis: Status: Acute Asessment and Plan: Elevated lipase on admission, 998. The follow-up level came down to 282. His abdominal pain resolved. (2) Alcohol abuse: Status: Chronic Asessment and Plan: Patient states he is 14 days abstinent and plans to continue abstinence. (3) GERD (gastroesophageal reflux disease): Status: Chronic Asessment and Plan: Continue omeprazole. (4) Abdominal pain: Status: Acute Asessment and Plan: Resolved. Discharge Plan Disposition Patient Disposition: HOME Condition: Improving Discharge Details Reason For Visit: Pancreatitis Admit Date/Time: 10/20/20 01:00 Admit Provider: Alejo Larson Attending Provider: Alejo Larson Primary Care Provider: Benjamin Bustillos Hospital Course Hospital Course: This is a 60-year-old male admitted on 10/20/2020 for severe epigastric pain radiating to his back and lower abdomen. He also had nausea. The symptoms are typical of his episodes of acute pancreatitis. In the emergency room he was afebrile, normal white count, lipase greater than 900, normal transaminases. Patient stated he had not had a drink in over 10 days. EtOH level was undetectable. The patient received Zofran and Dilaudid for nausea control and pain control. Over the next 24 hours his pain subsided and his appetite returned. He had no episodes of vomiting. He was tolerating a normal diet. He was desiring discharge. Home Meds and New Rx's Prescriptions: Continued omeprazole 40 mg capsule,delayed release(DR/EC) 40 mg PO DAILY Qty: 90 RF: 3 metoclopramide HCl [Reglan] 5 mg tablet 5 mg PO QAC Qty: 30 RF: 0 hydrocodone-acetaminophen 7.5-325 mg tablet 1 tab PO BID MDD 15 mg PRN (Reason: pain) Qty: 14 RF: 0 Discharge Instructions Instructions: Pancreatitis (DC) Stand Alone Forms: Nursing Discharge Form Referrals: Benjamin Bustillos DO [Primary Care Provider] - 10/25/20 2:30 am () Activity:: Activity as Tolerated Equipment/Supplies:: No Equipment Needed Diet:: Normal Diet Discharge Orders Discharge Orders: Discharge Order (Routine); Ordered 10/22/20 Ordered By: Brett Powell Discharge Data Discharge Date/Time-TO BE ENTERED AT DEPARTURE: 10/22/20 14:27 DS: Summary Time Spent with Patient providing and/or coordinating discharge services: Greater than 30 minutes Status at Discharge Functional status at discharge: independent ambulation Overall status at discharge: patient is back to baseline Mental Status: mental status grossly normal Speech and Movement: speech and movement normal Mood: congruent mood Affect: normal affect Exam Narrative Exam Narrative: Exam on the day of discharge revealed no apparent distress, talkative and displaying a full affect. He moves around freely on the bed without any apparent pain or discomfort. His abdominal exam was overall soft and nontender to palpation. No masses were palpated. Psych Mental Status: mental status grossly normal Speech and Movement: speech and movement normal Mood: congruent mood Affect: normal affect DS: Data Vitals/I&O Vitals and I&O: Vital Signs Temperature 36.3 C L 10/22/20 07:46 Temperature Source Tympanic 10/22/20 07:46 Pulse 62 10/22/20 07:46 Pulse Rhythm Regular 10/22/20 07:40 Respiratory Rate 15 10/22/20 07:46 Respiratory Effort Non-Labored 10/22/20 07:40 Respiratory Depth Normal 10/22/20 07:40 Respiratory Pattern Normal 10/22/20 07:40 Blood Pressure 163/91 H 10/22/20 07:46 Blood Pressure Position Supine 10/19/20 22:55 Pulse Oximetry 99 10/22/20 07:46 Oxygen Delivery Method Room Air 10/22/20 07:46 Oxygen Flow Rate 0 10/22/20 07:46 Pain Level 9 10/22/20 11:05 Comment 10/21/20 04:00 Intake & Output 10/21/20 10/22/20 10/22/20 23:59 11:59 23:59 Intake Total 1500 / 3435 450 / 920 470 / 920 Output Total 1515 / 2335 Balance -15 / 1100 450 / 920 470 / 920 Intake: IV 1000 / 2935 Oral 500 / 500 450 / 900 450 / 900 Output: Urine 1515 / 2335 Other: Urine Color Yellow Urine Appearance Clear Urine Odor None Comment Patient reports normal urine output independently in toilet overnight, moderate in amount. Voiding Methods Urinal Data Completed and Pending Labs on day of discharge: Labs from last 24 hours 10/22/20 10/22/20 10/21/20 07:15 07:15 19:12 WBC 3.57 L 3.94 L RBC 4.26 L 4.38 Hgb 13.2 L 13.7 Hct 40.3 42.0 MCV 94.6 95.9 H MCH 31.0 31.3 MCHC 32.8 32.6 RDW 14.8 H 15.0 H Plt Count 189 198 MPV 9.5 9.8 Sodium 139 Potassium 3.9 Chloride 101 Carbon Dioxide 26.9 Anion Gap 11.1 H BUN 4 L Creatinine 0.6 L Estimated GFR/1.73 m2 >= 60.00 Glucose 103 Calcium 7.8 L PFSH Medical History Acute UTI Alcohol withdrawal Alcoholic gastritis Alcoholism /alcohol abuse ARDS (adult respiratory distress syndrome) Aspiration pneumonia Chronic pain COVID-19 ruled out by laboratory testing Enterocolitis Fever Ground glass opacity present on imaging of lung Hiccups HTN (hypertension) Hx of hyperlipidemia Hypokalemia Hypomagnesemia Insomnia Myocardial infarction x 2 Pancreatitis Pancreatitis, chronic Pneumonia Presence of pancreatic duct stent ([place]/2018) [place] Retention of urine Septal myocardial infarction (01/18/20) probably old, [facility] records Surgical History S/P ERCP ([place]2018[place] Family History Mother Alcohol abuse Father Alcohol abuse Social History Smoking/Tobacco Use Status: Current every day Tobacco Type: cigarettes Smoking packs per day: 1 Smoking cigarettes per day: 20.0 Smoking risk assessment performed?: Yes Alcohol Intake: current Alcohol Intake frequency: 3 or more drinks per day Alcohol type: beer Drug use: Never Substance use type: does not use Details: States last drink was a week and a half ago. Housing: apartment Do you feel safe at home: Yes Do you feel safe in your relationship?: Yes
--- NOTE | 2020-10-22 15:07 | PDOC.CMDIS ---
- If Service Date Differs Date of service: 10/22/20 Time of Service: 15:07 LACE Index Scoring Tool - Questions: Length of Stay (in days): 2 Acuity (Admit via E.D.?): Yes E.D. Visits: 27 - Answers: Total Score: 9 Risk of Readmission: Low Risk Care Management Discharge Reason for Hospitalization: Pancreatitis. Discharge Plan: Juan Jose is discharged home with no new services. He will follow up with his PCP, community providers, and discharge plan of care as instructed. He is taking the [facility] shuttle bus home, as [facility] doesn't currently have any private drivers available. Patient/Family Education Needs: Review discharge instructions, discussion of self care needs, including [employer].
== END 2020-10-22 14:27 | disposition home or self-care (01) | DRG 440 ==
LOC: ER 10-20 01:09 → MS 10-20 01:51
PROVIDERS: Nurse Practitioner Family; Physician Assistant; Admitting Provider General Practice; Emergency Provider Emergency Medicine; PCP Family Medicine; Visit Provider General Practice
DX: K85.90 Acute pancreatitis without necrosis or infection, unspecified (principal); K86.1 Other chronic pancreatitis; F10.10 Alcohol abuse, uncomplicated; K29.20 Alcoholic gastritis without bleeding; Z20.822 Contact with and (suspected) exposure to COVID-19; I10 Essential (primary) hypertension; E78.5 Hyperlipidemia, unspecified; I25.2 Old myocardial infarction; F17.210 Nicotine dependence, cigarettes, uncomplicated; K21.9 Gastro-esophageal reflux disease without esophagitis
CPT/HCPCS: 36415; 80048; 80053; 83690; 85027; 87635; 96361; 96365; 96375; 99285; 80320; 81003; 85025; 99222; 99232; 99239; J0131; J1644; J2405

== ENCOUNTER 2020-12-19 18:08 | Emergency (ER) | payer MEDICAID, SELFPAY ==
[2020-12-19] VITALS (37 sets, daily range): BP systolic 65–184; BP diastolic 26–111; PULSE 67–118; RESP 7–28; TEMP 37; O2SAT 93–100
--- NOTE | 2020-12-19 18:00 | DI.CT_ITS ---
Exam(s) CT ABDOMEN PELVIS W EXAM: CT ABDOMEN PELVIS W CLINICAL HISTORY: abdominal pain TECHNIQUE: COMPARISON: CT CT CHEST/ABD/PEL W from 04/18/[address] CHEST/ABD/PEL W from 04/18/[address] ABDOMEN PELVIS W from 10/03/2020 FINDINGS: CT examination of the abdomen and pelvis was performed with bolus infusion of 100 cc of Omnipaque 350 . Images obtained through the lung bases are unremarkable. The liver appears normal with no evidence of a focal mass. Spleen is unremarkable in appearance.. Gallbladder and bile ducts are unremarkable except for gallbladder distention which is a nonspecifi c finding.. Comparison with prior examinations including March 2019 shows no gross interval change in appearan ce of the pancreas, note is again made of multiple pancreatic calcifications and slight enlargement o f the pancreatic head with mild pancreatic ductal dilatation. No gross peripancreatic fluid collecti on seen. Underlying neoplastic disease cannot be entirely excluded on the basis of this examination but there has been no interval change since March 2019. Adrenals appear normal bilaterally. Kidneys appear normal with no evidence of renal mass, hydronephrosis, or nephrolithiasis. The urinar y bladder is markedly distended, please correlate regarding the possibility of acute or chronic bladd er outlet obstruction. There is no evidence of abdominal or pelvic adenopathy. There is widespread vascular calcification n oted. Abdominal aorta is of normal diameter and no significant stenosis is seen involving major visc eral branches.. Appendix is normal. No evidence diverticulitis or bowel obstruction. There is wall thickening and distention of few jejunal loops, question enteritis. Please correlate c linically. No significant abdominal wall hernia seen. Impression: Chronic pancreatic changes, consistent with chronic pancreatitis. Underlying neoplasm of the pancrea tic head not absolutely excluded but unlikely considering little apparent interval change from 2019. Marked urinary bladder distension noted, possible acute or chronic obstruction. Wall thickening and distention of jejunal loops, possible enteritis, please correlate clinically. RADIATION DOSE DELIVERED: 690.34mGy.cm Total DLP 690.34mGy.cm Total DLP 14.88mGy CTDIvol DATA REPOSITORY: All CT scans at this facility are submitted to the National Radiology Data Registry (NRDR) Dose Index Registry (DIR) with the [employer] (ACR). RADIATION OPTIMIZATION: All CT scans at this facility use at least one of these dose optimization te chniques: automated exposure control; mA and/or kV adjustment per patient size (includes targeted exa ms where dose is matched to clinical indication); or iterative reconstruction.
--- NOTE | 2020-12-19 18:32 | ED.GENADUL_ITS ---
Discharge Plan Disposition Patient Disposition: HOME Condition: Stable Discharge Details Clinical Impression: Abdominal pain, Chronic alcoholic pancreatitis Primary Care Provider: Benjamin Bustillos ED Provider: Jose Luis Zhong Home Meds and New Rx's Prescriptions: Continued omeprazole 40 mg capsule,delayed release(DR/EC) 40 mg PO DAILY Qty: 90 RF: 3 metoclopramide HCl [Reglan] 10 mg tablet 5 mg PO QAC Qty: 10 RF: 0 No Action hydrocodone-acetaminophen 7.5-325 mg tablet 1 tab PO BID MDD 15 mg PRN (Reason: pain) Qty: 14 RF: 0 Discharge Instructions Instructions: Abdominal Pain (ED) Additional Instructions: your blood work showed a normal lipase and no concerning findings on the cat scan try to stop drinking, follow up with your primary care provider next week if you feel more ill, have severe worsening symptoms or persistent vomit return to the emergency department Referrals: Benjamin Bustillos DO [Primary Care Provider] - Medical Decision Making <Brett Blanco MD - Last Filed: 12/19/20 19:42> 60 yo male with hx of alcohol use disorder, chronic pancreatitis, who comes in with ems with abdominal pain. He was admitted here at the end of september for acute on chronic pancreatitis and states he had not had alcohol until today when he had 3 beers. Has nausea and one episode of vomit. No fevers, chest pain, dyspnea. He is in no distress on exam. He has tenderness of the mid and lower left abdomen, no guarding or rebound. Suspect his pain could be related to his chronic pancreatitis with exacerbation related to the alcohol. Clinically sober on exam. Will obtain labs to evaluate for acute pancreatitis, hepatitis and also ct to evaluate for surgical pathology such as abscess or diverticulitis labs show normal lipase, mild increased anion gap likely alcoholic ketoacidosis and alcohol level is 170. P[address] scan results, will be signed out pending ct results and reevaluation, likely discharge if CT shows no acute findings. Has mild epigastric tenderness so suspect alcohol gastritis, will order gi cocktail Differential Diagnosis Differential Diagnosis: pancreatitis, chronic pancreatitis, hepatitis Medical Records Medical records reviewed: Yes I reviewed the patient's medical records. Lab Data Lab results reviewed: Yes I reviewed the patient's lab results. <Jose Luis Zhong MD - Last Filed: 12/19/20 23:56> Patient with recurrent abdominal pain due to pancreatitis. Signed out with CT pending. Labs were ok. CT essentially unchanged. Patient to be discharged home and will need follow up with PCP for pain management. Given dose of ketorolac and hydromorphone prior to discharge while waiting for RCT to transport home. Lab Data Lab results reviewed: Yes I reviewed the patient's lab results. HPI <Brett Blanco MD - Last Filed: 12/19/20 19:42> General Mode of arrival: EMS . Date/Time Provider Initiated Documentation: 12/19/20 18:09 . Limitations to Documentation: no limitations . Information obtained by: patient . History of Present Illness 60 year old M presents to the emergency department with the chief complaint of abdominal pain, described as severe, Quality is described as sharp, and is localized to the abdomen. Patient reports no radiation. Patient started experiencing this hour(s) (3) and it has been constant. No relieving factors improve symptom(s), No exacerbating factors reported . Patient notes nausea/vomiting. Patient did receive the following treatments prior to arrival, none Related Data Home Medications Medication Instructions Recorded Confirmed omeprazole 40 mg capsule,delayed 40 mg PO DAILY #90 cap 10/04/20 12/19/20 release hydrocodone 7.5 mg-acetaminophen 1 tab PO BID PRN #14 tab MDD 15 mg 10/17/20 10/19/20 325 mg tablet metoclopramide HCl 10 mg tablet 5 mg PO QAC #10 tab 10/23/20 Previous Rx's Medication Instructions Recorded omeprazole 40 mg capsule,delayed 40 mg PO DAILY #90 cap 10/04/20 release hydrocodone 7.5 mg-acetaminophen 1 tab PO BID PRN #14 tab MDD 15 mg 10/17/20 325 mg tablet metoclopramide HCl 10 mg tablet 5 mg PO QAC #10 tab 10/23/20 Allergies Allergy/AdvReac Type Severity Reaction Status Date / Time Penicillins Allergy Verified 12/19/20 18:09 General Stated Complaint: Abd Prob DMITRI: 3 Review of Systems <Brett Blanco MD - Last Filed: 12/19/20 19:42> All systems reviewed & are unremarkable except as noted in HPI and below Constitutional Constitutional: Denies chills, Denies fever(s) and Denies weakness Cardiovascular Cardiovascular: Denies chest pain and Denies dyspnea Respiratory Respiratory: Denies cough and Denies dyspnea Musculoskeletal Musculoskeletal: Denies joint swelling Neurologic Neurologic: Denies weakness Psychiatric Psychiatric: Denies depression PFSH <Brett Blanco MD - Last Filed: 12/19/20 19:42> Medical History Acute UTI Alcohol withdrawal Alcoholic gastritis Alcoholism /alcohol abuse ARDS (adult respiratory distress syndrome) Aspiration pneumonia Chronic pain COVID-19 ruled out by laboratory testing Enterocolitis Fever Ground glass opacity present on imaging of lung Hiccups HTN (hypertension) Hx of hyperlipidemia Hypokalemia Hypomagnesemia Insomnia Myocardial infarction x 2 Pancreatitis Pancreatitis, chronic Pneumonia Presence of pancreatic duct stent (~01/2018) [place] Retention of urine Septal myocardial infarction (01/18/20) probably old, [facility] records Surgical History S/P ERCP (~01/2018) [place] Family History Mother Alcohol abuse Father Alcohol abuse Social History Smoking/Tobacco Use Status: Current every day Tobacco Type: cigarettes Smoking packs per day: 1 Smoking cigarettes per day: 20.0 Smoking risk assessment performed?: Yes Alcohol Intake: current Alcohol Intake frequency: 3 or more drinks per day Alcohol type: beer Drug use: Never Substance use type: does not use Housing: apartment Do you feel safe at home: Yes Do you feel safe in your relationship?: Yes Exam <Brett Blanco MD - Last Filed: 12/19/20 19:42> Const General: no acute distress Orientation: alert [facility] Head: normal to inspection Ears: external ears normal General nose exam: external nose normal Mouth: moist mucous membranes Eyes General: appearance normal, both eyes and all related structures Neck Neck: normal visual inspection Resp Effort & Inspection: normal respiratory effort and able to speak in complete sentences Cardio Rate: regular rate GI Palpation: soft and tender Skin General skin exam: no rashes or lesions noted Neuro General: patient alert and patient oriented x3 Extrem General: normal to inspection Psych Mental Status: mental status grossly normal Course <Brett Blanco MD - Last Filed: 12/19/20 19:42> Vital Signs Vital signs: Vital Signs Temperature 37 C 12/19/20 18:02 Pulse 106 H 12/19/20 18:02 Respiratory Rate 22 12/19/20 18:02 Blood Pressure 131/69 12/19/20 18:02 Pulse Oximetry 99 12/19/20 18:02 Temperature 37 C 12/19/20 18:02 Temperature Source Skin 12/19/20 18:02 Pulse 106 H 12/19/20 18:02 Respiratory Rate 22 12/19/20 18:02 Respiratory Effort 12/19/20 18:11 Blood Pressure 131/69 12/19/20 18:02 Pulse Oximetry 99 12/19/20 18:02 Oxygen Delivery Method Room Air 12/19/20 18:02 Oxygen Flow Rate 0 12/19/20 18:02 Pain Level 10 12/19/20 18:02 Comment 12/19/20 18:02 Sign Out <Brett Blanco MD - Last Filed: 12/19/20 19:42> Sign Out Data: Sign Out Comment: chronic pancreatitis, pending ct and reeval, can likely go home if imaging unremarkable Last updated by Brett Blanco MD at 12/19/20 19:35 PAWSS <Brett Blanco MD - Last Filed: 12/19/20 19:42> Have you Been Recently Intoxicated or Drunk Within the Last 30 days?: No Have you Ever Experienced Previous Episodes of Alcohol Withdrawal?: Yes Have you ever Experienced Withdrawal Seizures?: No Have you ever Experienced Delirium Tremens(DT)s?: Yes Have you ever undergone Alcohol Rehabilitation Treatment (i.e, inpt ot outpatient treatment programs)?: Yes Have you ever Experienced Blackouts?: No Have you ever Combined Alcohol with other Downers within the last 90 days?: No Have you ever Combined Alcohol with any other Substance of Abuse during the last 90 days?: Yes Positive Blood Alcohol level on Presentation? [PCS.BAL]: Unable to Obtain Evidence of Increased Autonomic Activity (i.e. HR>120, tremor, sweating, agitation, nausea)?: No Result: 5
[2020-12-19 18:37] LABS: Abs Immature Grans 0.01 10^3/uL (0.0-0.06); Absolute Basophil Count 0.05 10^3/uL (0.0-0.2); Absolute Lymphocyte Count 2.11 10^3/uL (1.2-3.4); Absolute Monocyte Count 0.51 10^3/uL (0.1-0.8); Absolute Neutrophil Count 1.82 10^3/uL (1.2-6.7); Basophils % 1.1; Eosinophils % 2.2; HCT 46.8 % (40.0-50.0); HGB 15.4 g/dL (13.5-17.5); Immature Grans % 0.2; Lymphocytes % 45.9; MCH 30.7 pg (27.0-33.0); MCHC 32.9 % (32.0-36.0); MCV 93.4 fL (80-95); MPV 10.1 fL (8.0-11.0); Monocytes % 11.1; Neutrophils % 39.5; Nucleated RBC 0 %; Platelet Count 201 10^3/uL (130-400); RBC 5.01 10^6/uL (4.36-5.78); RDW-SD 50.4 fL
[2020-12-19] MEDS: Normal Saline 1,000 ML 1000 ML IV (18:40)
[2020-12-19] MEDS: Ondansetron 4 MG/2 ML VIAL IVP (18:50)
[2020-12-19] MEDS: HYDROmorphone 2 MG/ML VIAL 1 MG IVP ×2 (18:51→21:04)
[2020-12-19 19:09] LABS: ALT 18 U/L (16-63); AST 24 U/L (15-37); Albumin 3.2 g/dL (3.4-5.0); Alkaline Phosphatase 112 U/L (46-116); BUN 4 mg/dL (7-18); Bilirubin, Direct 0.1 mg/dL (0.0-0.2); Bilirubin, Total 0.2 mg/dL (0.2-1.0); CREATININE 0.6 mg/dL (0.70-1.30); Calcium 8.2 mg/dL (8.5-10.1); Chloride 105 mmol/L (98-107); ETHANOL BLOOD 175.4 mg/dL (<10); Glucose 115 mg/dL (74-106); Lipase 173 U/L (73-393); Potassium 3.9 mmol/L (3.5-5.1); Sodium 143 mmol/L (136-145)
[2020-12-19] MEDS: Normal Saline - Diluent 50 ML VIAL IV (19:27)
[2020-12-19] MEDS: Omnipaque 350 MG/ML 100 ML BTL IJ (19:28)
[2020-12-19] MEDS: Normal Saline Flush 10 ML SYR IVP (19:29)
--- NOTE | 2020-12-19 20:13 | DI.VRAD_ITS ---
PROCEDURE INFORMATION: Exam: CT Abdomen And Pelvis With Contrast Exam date and time: 12/19/2020 6:16 PM Age: 60 years old Clinical indication: Abdominal pain; Other: HX of pancreatitus TECHNIQUE: Imaging protocol: Computed tomography of the abdomen and pelvis with contrast. Contrast material: OMNIPAQUE 350; Contrast volume: 100 ml; Contrast route: INTRAVENOUS (IV); COMPARISON: CT ABDOMEN PELVIS W 10/03/2020 12:31 AM FINDINGS: Lungs: Mild basilar atelectasis. Liver: Unremarkable. No mass. Gallbladder and bile ducts: Gallbladder is distended. No gallbladder wall thickening or pericholecystic inflammatory stranding. There is mild intrahepatic ductal dilation, common bile duct is not dilated. Pancreas: Pancreas is mildly atrophic with redemonstrated coarse calcifications within the pancreas, predominantly within the pancreatic head. There is persistent dilation of the pancreatic duct which appears slightly improved to prior, measuring 10 mm within the pancreatic neck. There is mild residual stranding in the region of the pancreatic head and neck, similar to prior. No peripancreatic fluid collection. Spleen: Unremarkable. No splenomegaly. Adrenal glands: No adrenal mass. Kidneys and ureters: Symmetric renal enhancement without mass. No hydronephrosis. Ureters are normal in course and caliber. Stomach and bowel: Mild sigmoid diverticulosis. There is mild mural thickening of the sigmoid colon, however decompressed and similar to prior. Otherwise no focal colonic mural thickening. There is mural thickening of several loops of proximal small bowel/jejunum within the left upper quadrant which are mildly fluid distended possibly representing focal ileus. No focal transition to suggest obstruction. Remainder of small bowel bowel is normal in course and caliber. Appendix: Within normal limits. Intraperitoneal space: No significant free fluid in the abdomen or pelvis. No free air. Vasculature: There are moderate scattered atherosclerotic calcifications of the abdominal aorta and its major branches, no abdominal aortic aneurysm. Lymph nodes: No pathologically enlarged lymph nodes. Urinary bladder: Bladder is distended without bladder wall thickening. Right bladder wall appears mildly trabeculated which could be related to neurogenic bladder or chronic bladder outlet obstruction, correlate clinically. Reproductive: Unremarkable as visualized. Bones/joints: Decreased osseous mineralization. Moderate multilevel degenerative changes of the spine. Soft tissues: No focal abnormality. IMPRESSION: 1. Mural/fold thickening of several loops of proximal small bowel/jejunum within the left upper quadrant with possible focal ileus, correlate clinically to exclude enteritis. No bowel obstruction. 2. CT sequela consistent with chronic pancreatitis. Mild residual stranding in the region of the pancreatic head and neck appears similar to prior exam suspected to represent sequela of prior pancreatitis, however correlate clinically to exclude superimposed mild acute, uncomplicated pancreatitis. No peripancreatic fluid collection. 3. Bladder is distended without focal bladder wall thickening or mass. May represent physiologic distention but correlate clinically to exclude acute versus chronic bladder outlet obstruction. 4. Mild sigmoid diverticulosis with mild sigmoid mural thickening, however underdistended and similar to prior. Suspect changes of underdistention, correlate with history/symptoms to exclude early acute uncomplicated colitis/diverticulitis. Dictated and Authenticated by: Yehuda Hurt MD. Ordering:DANG West MD
[2020-12-19] MEDS: Ketorolac 30 MG/ML VIAL IVP (21:04)
== END 2020-12-19 21:22 | disposition home or self-care (01) ==
LOC: ER 21:17
PROVIDERS: Emergency Medicine; Emergency Provider Emergency Medicine; PCP Family Medicine
DX: R10.32 Left lower quadrant pain (principal); K86.0 Alcohol-induced chronic pancreatitis; F10.20 Alcohol dependence, uncomplicated
CPT/HCPCS: 36415; 80053; 83690; 96361; 96374; 96375; 96376; 99285; 74177; 80320; 81003; 82248; 83735; 85025; 99284; J1885; J2405; J3490

== ENCOUNTER 2020-12-27 13:44 | Emergency (ER) | payer MEDICAID, SELFPAY ==
[2020-12-27 13:49] VITALS: BP 144/86; PULSE 96; RESP 18; TEMP 36.6; O2SAT 98
[2020-12-27 14:50] LABS: Abs Immature Grans 0.01 10^3/uL (0.0-0.06); Absolute Basophil Count 0.04 10^3/uL (0.0-0.2); Absolute Eosinophil Count 0.07 10^3/uL (0.0-0.7); Absolute Lymphocyte Count 1.76 10^3/uL (1.2-3.4); Absolute Monocyte Count 0.47 10^3/uL (0.1-0.8); Absolute Neutrophil Count 2.13 10^3/uL (1.2-6.7); Basophils % 0.9; Eosinophils % 1.6; HCT 42.7 % (40.0-50.0); Immature Grans % 0.2; Lymphocytes % 39.3; MCH 30.6 pg (27.0-33.0); MCHC 32.8 % (32.0-36.0); MCV 93.2 fL (80-95); MPV 10.4 fL (8.0-11.0); Monocytes % 10.5; Neutrophils % 47.5; Nucleated RBC 0 %; Platelet Count 173 10^3/uL (130-400); RBC 4.58 10^6/uL (4.36-5.78); RDW 16.8 % (11.8-14.1); RDW-SD 56.6 fL; WBC 4.48 10^3/uL (4.4-10.8)
[2020-12-27 15:01] LABS: ETHANOL BLOOD 154.3 mg/dL (<10)
[2020-12-27 15:03] LABS: ALT 16 U/L (16-63); AST 24 U/L (15-37); Albumin 2.8 g/dL (3.4-5.0); Alkaline Phosphatase 109 U/L (46-116); Anion Gap 7.2 mmol/L (3-11); BUN 5 mg/dL (7-18); Bilirubin, Total 0.4 mg/dL (0.2-1.0); CO2 28.8 mmol/L (21.0-32.0); CREATININE 0.7 mg/dL (0.70-1.30); Calcium 8.2 mg/dL (8.5-10.1); Chloride 106 mmol/L (98-107); Glucose 89 mg/dL (74-106); Lipase 176 U/L (73-393); Potassium 4.6 mmol/L (3.5-5.1); Sodium 142 mmol/L (136-145); Total Protein 6.8 g/dL (6.4-8.2)
[2020-12-27] MEDS: Normal Saline 1,000 ML 1000 ML IV (15:20)
--- NOTE | 2020-12-27 15:20 | ED.GENADUL_ITS ---
Discharge Plan Disposition Patient Disposition: HOME Condition: Stable Discharge Details Clinical Impression: Alcoholic gastritis Primary Care Provider: Benjamin Bustillos ED Provider: Kinza Marrero Home Meds and New Rx's Prescriptions: New sucralfate [Carafate] 1 gram tablet 1 g PO BID Qty: 60 RF: 0 No Action omeprazole 40 mg capsule,delayed release(DR/EC) 40 mg PO DAILY Qty: 90 RF: 3 levofloxacin 750 mg tablet 750 mg PO DAILY 5 Days Qty: 5 RF: 0 Discharge Instructions Instructions: Gastritis (ED) Additional Instructions: Stop drinking alcohol, taper your alcohol by 1 drink daily until you are able to discontinue it, if you abruptly stop drinking alcohol, you can have seizures and become very ill I recommend taking Carafate daily to help with your epigastric pain Your lipase is normal today Please follow-up with your doctor tomorrow and return earlier should you have ne w or worsening complaints Referrals: Benjamin Bustillos DO [Primary Care Provider] - Discharge Data Discharge Date/Time-TO BE ENTERED AT DEPARTURE: 12/27/20 15:46 Medical Decision Making Long discussion with patient regarding alcohol cessation and how to keep her off alcohol without having withdrawals I did not order opiate analgesia as this patient is here frequently for the same complaint and received opiate with every evaluation without any acute findings Has a negative lipase and negative CT imaging approximately 7 days ago at this time I think the risk of CT radiation outweighs the benefit He is alert, oriented, of decisional capacity, his blood alcohol is 152, however he is clinically sober and ambulatory with steady gait There is no indication for opiate analgesia, this will harm patient more than benefit him at this time and I suspect there may be an addiction component to his presentation He is encouraged to follow-up with his primary care physician He was given a dose of Toradol for analgesia and discharged home with [facility] HPI General Mode of arrival: ambulatory . Date/Time Provider Initiated Documentation: 12/27/20 14:12 . Limitations to Documentation: no limitations . Information obtained by: patient . HPI Narrative: This 60-year-old male presents with epigastric pain. This is an acute exacerbation of chronic pancreatitis per patient. When asked if he is still consuming alcohol he says only to relieve the pain . He denies any nausea or vomiting. He denies any chest pain or shortness of breath. He denies any dizziness or weakness. He denies any blood in vomitus or stool. He denies any additional illicit drug use, falls or injuries. The pain is unchanged from his prior evaluation per patient. Related Data Home Medications Medication Instructions Recorded Confirmed omeprazole 40 mg capsule,delayed 40 mg PO DAILY #90 cap 10/04/20 12/30/20 release sucralfate [Carafate] 1 g PO BID #60 tab 12/27/20 12/30/20 levofloxacin 750 mg PO DAILY 5 Days #5 tab 12/30/20 Previous Rx's Medication Instructions Recorded omeprazole 40 mg capsule,delayed 40 mg PO DAILY #90 cap 10/04/20 release sucralfate [Carafate] 1 g PO BID #60 tab 12/27/20 levofloxacin 750 mg PO DAILY 5 Days #5 tab 12/30/20 Allergies Allergy/AdvReac Type Severity Reaction Status Date / Time Penicillins Allergy Verified 12/30/20 18:37 General Stated Complaint: Abd Prob DMITRI: 3 Review of Systems All systems reviewed & are unremarkable except as noted in HPI and below PFSH Medical History Acute UTI Alcohol withdrawal Alcoholic gastritis Alcoholism /alcohol abuse ARDS (adult respiratory distress syndrome) Aspiration pneumonia Chronic pain COVID-19 ruled out by laboratory testing Enterocolitis Fever Ground glass opacity present on imaging of lung Hiccups HTN (hypertension) Hx of hyperlipidemia Hypokalemia Hypomagnesemia Insomnia Myocardial infarction x 2 Pancreatitis Pancreatitis, chronic Pneumonia Presence of pancreatic duct stent (~01/2018) [place] Retention of urine Septal myocardial infarction (01/18/20) probably old, [facility] records Surgical History S/P ERCP (~01/2018) [place] Family History Mother Alcohol abuse Father Alcohol abuse Social History Smoking/Tobacco Use Status: Current every day Tobacco Type: cigarettes Smoking packs per day: 1 Smoking cigarettes per day: 20.0 Smoking risk assessment performed?: Yes Alcohol Intake: current Alcohol Intake frequency: 3 or more drinks per day Alcohol type: beer Drug use: Occasionally Substance use type: marijuana Housing: apartment Do you feel safe at home: Yes Do you feel safe in your relationship?: Yes Exam Const General: cooperative, comfortable and no acute distress HENMT Other: moist mucous membranes Eyes Pupils: PERRL Resp Effort & Inspection: normal respiratory effort Cardio Rate: regular rate Rhythm: regular rhythm GI Other: Mild tenderness, with distraction no significant discomfort Skin General skin exam: no rashes or lesions noted Neuro General: patient alert and patient oriented x3 Psych Appearance: disheveled Course Vital Signs Vital signs: Vital Signs Temperature 36.6 C 12/27/20 13:49 Pulse 96 H 12/27/20 13:49 Respiratory Rate 18 12/27/20 13:49 Blood Pressure 144/86 H 12/27/20 13:49 Pulse Oximetry 98 12/27/20 13:49 Temperature 36.6 C 12/27/20 13:49 Temperature Source Temporal Artery Scan 12/27/20 13:49 Pulse 96 H 12/27/20 13:49 Respiratory Rate 18 12/27/20 13:49 Respiratory Effort Non-Labored 12/27/20 13:51 Blood Pressure 144/86 H 12/27/20 13:49 Blood Pressure Position Sitting 12/27/20 13:49 Pulse Oximetry 98 12/27/20 13:49 Oxygen Delivery Method Room Air 12/27/20 13:49 Oxygen Flow Rate 0 12/27/20 13:49 Pain Level 10 12/27/20 13:51 Lab/Test Results Lab/Test Results: Laboratory Tests Range/Units 12/27/20 12/27/20 12/27/20 14:42 14:42 14:42 WBC (4.4-10.8) 10^3/uL 4.48 RBC (4.36-5.78) 10^6/uL 4.58 Hgb (13.5-17.5) g/dL 14.0 Hct (40.0-50.0) % 42.7 MCV (80-95) fL 93.2 MCH (27.0-33.0) pg 30.6 MCHC (32.0-36.0) % 32.8 RDW (11.8-14.1) % 16.8 H Plt Count (130-400) 10^3/uL 173 MPV (8.0-11.0) fL 10.4 Immature Gran % 0.2 Neutrophils % 47.5 Lymphocytes % 39.3 Monocytes % 10.5 Eosinophils % 1.6 Basophils % 0.9 Nucleated RBC % % 0 Absolute Neutrophils (1.2-6.7) 10^3/uL 2.13 Absolute Lymphocytes (1.2-3.4) 10^3/uL 1.76 Absolute Monocytes (0.1-0.8) 10^3/uL 0.47 Absolute Eosinophils (0.0-0.7) 10^3/uL 0.07 Absolute Basophils (0.0-0.2) 10^3/uL 0.04 Sodium (136-145) mmol/L 142 Potassium (3.5-5.1) mmol/L 4.6 Chloride (98-107) mmol/L 106 Carbon Dioxide (21.0-32.0) mmol/L 28.8 Anion Gap (3-11) mmol/L 7.2 BUN (7-18) mg/dL 5 L Creatinine (0.70-1.30) mg/dL 0.7 Estimated GFR/1.73 m2 (mL/min/1.73m2) >= 60.00 Glucose (74-106) mg/dL 89 Calcium (8.5-10.1) mg/dL 8.2 L Total Bilirubin (0.2-1.0) mg/dL 0.4 AST (15-37) U/L 24 ALT (16-63) U/L 16 Alkaline Phosphatase (46-116) U/L 109 Total Protein (6.4-8.2) g/dL 6.8 Albumin (3.4-5.0) g/dL 2.8 L Lipase (73-393) U/L 176 Ethyl Alcohol (<10) mg/dL 154.3 H PAWSS Have you Been Recently Intoxicated or Drunk Within the Last 30 days?: Yes Have you Ever Experienced Previous Episodes of Alcohol Withdrawal?: Yes Have you ever Experienced Withdrawal Seizures?: No Have you ever Experienced Delirium Tremens(DT)s?: Yes Have you ever undergone Alcohol Rehabilitation Treatment (i.e, inpt ot outpatient treatment programs)?: Yes Have you ever Experienced Blackouts?: No Have you ever Combined Alcohol with other Downers within the last 90 days?: No Have you ever Combined Alcohol with any other Substance of Abuse during the last 90 days?: No Positive Blood Alcohol level on Presentation? [PCS.BAL]: Yes Evidence of Increased Autonomic Activity (i.e. HR>120, tremor, sweating, agitation, nausea)?: No Result: 5
--- NOTE | 2020-12-27 15:20 | NUR.NOTE ---
5912 in room to medicate patient, IV infiltrate Dilaudid not given. Provider aware.
[2020-12-27] MEDS: Ketorolac 15 MG/ML VIAL IVP (15:32)
[2020-12-27 15:39] VITALS: BP 154/83; PULSE 921; RESP 16; TEMP 37; O2SAT 96
== END 2020-12-27 15:46 | disposition home or self-care (01) ==
PROVIDERS: Emergency Provider Physician Assistant; PCP Family Medicine
DX: K29.20 Alcoholic gastritis without bleeding (principal); F10.10 Alcohol abuse, uncomplicated; Y90.6 Blood alcohol level of 120-199 mg/100 ml
CPT/HCPCS: 36415; 80053; 83690; 96361; 96374; 99284; 80320; 85025; 99283; J1885

== ENCOUNTER 2020-12-30 18:27 | Emergency (ER) | payer MEDICAID, SELFPAY ==
--- NOTE | 2020-12-30 18:22 | ED.GENADUL_ITS ---
Discharge Plan Disposition Patient Disposition: HOME Condition: Stable Discharge Details Clinical Impression: UTI (urinary tract infection), Chronic abdominal pain, Vomiting Primary Care Provider: Benjamin Bustillos ED Provider: Emi Diane Home Meds and New Rx's Prescriptions: New levofloxacin 750 mg tablet 750 mg PO DAILY 5 Days Qty: 5 RF: 0 Continued omeprazole 40 mg capsule,delayed release(DR/EC) 40 mg PO DAILY Qty: 90 RF: 3 sucralfate [Carafate] 1 gram tablet 1 g PO BID Qty: 60 RF: 0 Discontinued hydrocodone-acetaminophen 7.5-325 mg tablet 1 tab PO BID MDD 15 mg PRN (Reason: pain) Qty: 14 RF: 0 metoclopramide HCl [Reglan] 10 mg tablet 5 mg PO QAC Qty: 10 RF: 0 Discharge Instructions Instructions: Urinary Tract Infection in Men (ED), Chronic Pain (ED) Additional Instructions: Your your lab work today notes that you have evidence of a possible urinary tract infection. You were given 1 dose of antibiotic here in action for an antibiotic test was sent electronically to your pharmacy. You are also being sent home with the nausea medication Phenergan to take as needed and directed for nausea and vomiting. The remainder of your lab work today is reassuring and does not note acute significant abnormal findings. Alternate tylenol and motrin as needed and directed for pain. Call the urology office of Dr. Armenta tomorrow to schedule a follow-up appointment for reevaluation. Return immediately to the emergency department if you develop any worsening or new concerning symptoms. Referrals: Marco Antonio Armenta MD [ [facility]FF [facility]YS[facility]IAN] - Discharge Data Discharge Physician: Emi Diane Medical Decision Making 60-year-old male with a history of alcohol abuse, alcoholic gastritis, and chronic pancreatitis presents with vomiting and abdominal pain since yesterday. Vitals within normal limits. Patient appears clinically sober and nontoxic. CT abdomen and pelvis from 12/19 notes: Impression: Chronic pancreatic changes, consistent with chronic pancreatitis. Underlying neoplasm of the pancreatic head not absolutely excluded but unlikely considering little apparent interval change from March 2019. Marked urinary bladder distension noted, possible acute or chronic obstruction. Wall thickening and distention of jejunal loops, possible enteritis, please correlate clinically. Differential diagnosis includes alcoholic gastritis, GERD, pancreatitis, gastroenteritis. Will place an IV, bolus IV fluids, screening labs, Toradol, Pepcid and Zofran and reassess. Will hold on additional imaging at this time until labs resulted as he has had multiple imaging, most recently within the last 10 days. Nursing will obtain a bladder scan. Patient would rather not have a straight cath. Will obtain a urinalysis. Labs labs reviewed. White blood cell count 3.48 which has been leukopenic as well in the past. Lipase within normal limits. Urinalysis notes greater than 50 WBCs with large leukocyte esterase. Urine culture sent. With patient's complaint of urinary hesitancy and urgency, will treat for UTI. Consider BPH as potential etiology. Patient placed on Dr. Armenta's list for follow-up. He was given 1 dose of Levaquin here and a prescription sent electronically to your pharmacy. He was given 1 dose of Valium to help with muscle spasm and a bottle of Phenergan to go. Usual and customary return precautions given prior to discharge. Medical Records Medical records reviewed: Yes I reviewed the patient's medical records. Lab Data Lab results reviewed: Yes I reviewed the patient's lab results. Labs: 12/30/20 20:45 Urine - Reflex from Ua Urine Culture - Pending Laboratory Tests Range/Units 12/30/20 12/30/20 12/30/20 20:30 20:30 20:45 WBC (4.4-10.8) 10^3/uL 3.48 L RBC (4.36-5.78) 10^6/uL 3.88 L Hgb (13.5-17.5) g/dL 12.1 L Hct (40.0-50.0) % 37.6 L MCV (80-95) fL 96.9 H MCH (27.0-33.0) pg 31.2 MCHC (32.0-36.0) % 32.2 RDW (11.8-14.1) % 16.9 H Plt Count (130-400) 10^3/uL 202 MPV (8.0-11.0) fL 9.2 Immature Gran % 0.3 Neutrophils % 28.7 Lymphocytes % 55.2 Monocytes % 12.4 Eosinophils % 2.0 Basophils % 1.4 Nucleated RBC % % 0 Absolute Neutrophils (1.2-6.7) 10^3/uL 1.00 L Absolute Lymphocytes (1.2-3.4) 10^3/uL 1.92 Absolute Monocytes (0.1-0.8) 10^3/uL 0.43 Absolute Eosinophils (0.0-0.7) 10^3/uL 0.07 Absolute Basophils (0.0-0.2) 10^3/uL 0.05 Sodium (136-145) mmol/L 143 Potassium (3.5-5.1) mmol/L 3.8 Chloride (98-107) mmol/L 108 H Carbon Dioxide (21.0-32.0) mmol/L 27.5 Anion Gap (3-11) mmol/L 7.5 BUN (7-18) mg/dL 6 L Creatinine (0.70-1.30) mg/dL 0.7 Estimated GFR/1.73 m2 (mL/min/1.73m2) >= 60.00 Glucose (74-106) mg/dL 104 Calcium (8.5-10.1) mg/dL 7.6 L Total Bilirubin (0.2-1.0) mg/dL 0.2 AST (15-37) U/L 17 ALT (16-63) U/L 12 L Alkaline Phosphatase (46-116) U/L 96 Total Protein (6.4-8.2) g/dL 5.9 L Albumin (3.4-5.0) g/dL 2.6 L Lipase (73-393) U/L 216 Urine Color (Yellow) Yellow Urine Clarity (Clear) Cloudy Urine pH (5-8) 6.5 Ur Specific [place] (1.005-1.025) 1.020 Urine Protein (Negative) mg/dL Negative Urine Ketones (Negative) mg/dL Negative Urine Blood (Negative) Negative Urine Nitrite (Negative) Negative Urine Bilirubin (Negative) Negative Urine Urobilinogen (Up TO 0.2) EU/dL 0.2 Ur Leukocyte Esterase (Negative) Large H Urine RBC (0-2) HPF 0-2 Urine WBC (0-5) HPF >50 H Ur Epithelial Cells (Negative) HPF Few Urine Crystals (Negative) HPF Negative Urine Bacteria (Negative) HPF Many Urine Casts (Negative) LPF Negative Urine Mucus (Negative) Negative Ur Culture Indicated? Yes Urine Glucose (Negative) mg/dL Negative HPI General Mode of arrival: EMS . Date/Time Provider Initiated Documentation: 12/30/20 18:31 . Limitations to Documentation: no limitations . Information obtained by: patient . HPI Narrative: Patient is a 60-year-old male with a history of alcohol abuse and chronic pancreatitis who is well-known to the emergency department and presents for abdominal pain and vomiting since yesterday. Patient was last seen here 3 days ago for the same complaint and discharged home after noted to have unremarkable labs. He does admit to a temp of 100 p.o. yesterday and difficulty urinating with hesitancy. Last bowel movement yesterday and within normal limits. He states he last drank alcohol today in which she had 2 beers. He also states he recently ran out of Vicodin and has asked for Dilaudid for pain. Related Data Home Medications Medication Instructions Recorded Confirmed omeprazole 40 mg capsule,delayed 40 mg PO DAILY #90 cap 10/04/20 12/30/20 release sucralfate [Carafate] 1 g PO BID #60 tab 12/27/20 12/30/20 levofloxacin 750 mg PO DAILY 5 Days #5 tab 12/30/20 Previous Rx's Medication Instructions Recorded omeprazole 40 mg capsule,delayed 40 mg PO DAILY #90 cap 10/04/20 release sucralfate [Carafate] 1 g PO BID #60 tab 12/27/20 levofloxacin 750 mg PO DAILY 5 Days #5 tab 12/30/20 Allergies Allergy/AdvReac Type Severity Reaction Status Date / Time Penicillins Allergy Verified 12/30/20 18:37 General DMITRI: 3 Review of Systems All systems reviewed & are unremarkable except as noted in HPI and below Constitutional Constitutional: Reports as per HPI, Denies chills and Denies fever(s) Eyes Eyes: Denies blurry vision ENT Ears, Nose, Mouth, and Throat: Denies dizziness, Denies sore throat and Denies t hroat swelling Cardiovascular Cardiovascular: Denies chest pain and Denies dyspnea Respiratory Respiratory: Denies cough and Denies dyspnea Gastrointestinal Gastrointestinal: Denies abdominal pain, Denies diarrhea and Denies vomiting Genitourinary Genitourinary: Denies hematuria and Denies dysuria Musculoskeletal Musculoskeletal: Denies back pain and Denies numbness Integumentary/Breasts Skin/Breast: Denies lesions and Denies rash Neurologic Neurologic: Denies dizziness, Denies localized weakness and Denies numbness Allergic/Immunologic Allergic/Immunologic: Denies throat swelling [facility] Medical History Acute UTI Alcohol withdrawal Alcoholic gastritis Alcoholism /alcohol abuse ARDS (adult respiratory distress syndrome) Aspiration pneumonia Chronic pain COVID-19 ruled out by laboratory testing Enterocolitis Fever Ground glass opacity present on imaging of lung Hiccups HTN (hypertension) Hx of hyperlipidemia Hypokalemia Hypomagnesemia Insomnia Myocardial infarction x 2 Pancreatitis Pancreatitis, chronic Pneumonia Presence of pancreatic duct stent (~01/2018) Sean Sears Retention of urine Septal myocardial infarction (01/18/20) probably old, [facility] records Surgical History S/P ERCP (~01/2018) Sean Sears Family History Mother Alcohol abuse Father Alcohol abuse Social History Smoking/Tobacco Use Status: Current every day Tobacco Type: cigarettes Smoking packs per day: 1 Smoking cigarettes per day: 20.0 Smoking risk assessment performed?: Yes Alcohol Intake: current Alcohol Intake frequency: 3 or more drinks per day Alcohol type: beer Drug use: Occasionally Substance use type: marijuana Housing: apartment Do you feel safe at home: Yes Do you feel safe in your relationship?: Yes Exam Const General: cooperative, no acute distress and disheveled HENMT Head: normal to inspection Face and sinus: normal facial exam Eyes General: appearance normal, both eyes and all related structures EOM: EOM intact bilaterally Neck Neck: normal visual inspection and No submandibular swelling Lymphatic: no lymphadenopathy noted Chest Chest: normal inspection of the chest and no tenderness Resp Effort & Inspection: normal respiratory effort and able to speak in complete sentences Auscultation: clear to auscultation bilaterally Cardio Rate: regular rate Rhythm: regular rhythm GI Inspection: normal to inspection Palpation: soft, not firm, not rigid and tender in the epigastrum and suprapubicly Auscultation: hypoactive bowel sounds Skin General skin exam: no rashes or lesions noted Neuro General: patient alert, patient awake and patient oriented x3 Cognition: normal cognition Speech: speech normal Motor: muscle tone normal throughout Sensory Exam: no sensory deficits noted Extrem General: normal to inspection, full ROM, capillary refill normal, no calf tenderness bilaterally and no edema Psych Appearance: grossly normal Mental Status: mental status grossly normal Speech and Movement: speech and movement normal Affect: normal affect
[2020-12-30 18:33] VITALS: BP 127/57; PULSE 97; RESP 16; TEMP 36.4; O2SAT 98
[2020-12-30] MEDS: FAMOTIDINE 20 MG/50 ML BAG 200 MG IVPB (19:22)
[2020-12-30] MEDS: Ondansetron 4 MG/2 ML VIAL IVP (19:23)
[2020-12-30] MEDS: Normal Saline 1,000 ML 1000 ML IV (19:23)
[2020-12-30] MEDS: Ketorolac 30 MG/ML VIAL IVP (19:23)
--- NOTE | 2020-12-30 20:14 | NUR.NOTE ---
Nursing Note: Attempted to draw labs R AC. Pt insisting that he needs Dilaudid, that it is the only pain medication to work for his pain. Is upset about receiving Toradol and other ordered medications.
[2020-12-30 20:39] LABS: Abs Immature Grans 0.01 10^3/uL (0.0-0.06); Absolute Basophil Count 0.05 10^3/uL (0.0-0.2); Absolute Eosinophil Count 0.07 10^3/uL (0.0-0.7); Absolute Lymphocyte Count 1.92 10^3/uL (1.2-3.4); Absolute Monocyte Count 0.43 10^3/uL (0.1-0.8); Basophils % 1.4; HCT 37.6 % (40.0-50.0); HGB 12.1 g/dL (13.5-17.5); Immature Grans % 0.3; Lymphocytes % 55.2; MCH 31.2 pg (27.0-33.0); MCHC 32.2 % (32.0-36.0); MCV 96.9 fL (80-95); MPV 9.2 fL (8.0-11.0); Monocytes % 12.4; Neutrophils % 28.7; Nucleated RBC 0 %; Platelet Count 202 10^3/uL (130-400); RBC 3.88 10^6/uL (4.36-5.78); RDW 16.9 % (11.8-14.1); RDW-SD 58.7 fL; WBC 3.48 10^3/uL (4.4-10.8)
--- NOTE | 2020-12-30 20:40 | NUR.NOTE ---
Nursing Note: Dr. Diane at bedside speaking with patient.
[2020-12-30 20:54] LABS: Bilirubin Negative (Negative); Blood Negative (Negative); Clarity Cloudy (Clear); Glucose Negative (Negative); Ketones Negative (Negative); Leukocyte Esterase Large (Negative); Nitrite Negative (Negative); Urobilinogen 0.2 EU/dL (Up TO 0.2); pH 6.5 (5-8)
[2020-12-30 20:57] LABS: ALT 12 U/L (16-63); AST 17 U/L (15-37); Albumin 2.6 g/dL (3.4-5.0); Alkaline Phosphatase 96 U/L (46-116); Anion Gap 7.5 mmol/L (3-11); BUN 6 mg/dL (7-18); Bilirubin, Total 0.2 mg/dL (0.2-1.0); CO2 27.5 mmol/L (21.0-32.0); CREATININE 0.7 mg/dL (0.70-1.30); Calcium 7.6 mg/dL (8.5-10.1); Chloride 108 mmol/L (98-107); Glucose 104 mg/dL (74-106); Lipase 216 U/L (73-393); Potassium 3.8 mmol/L (3.5-5.1); Sodium 143 mmol/L (136-145); Total Protein 5.9 g/dL (6.4-8.2)
[2020-12-30 21:00] LABS: Epithelial Cells Few HPF (Negative); RBC 0-2 HPF (0-2); WBC >50 HPF (0-5)
[2020-12-30 21:01] LABS: Bacteria Many HPF (Negative); C & S Indicated? Yes; Casts Negative LPF (Negative); Crystals Negative HPF (Negative); Mucus Negative (Negative)
--- NOTE | 2020-12-30 21:01 | NUR.NOTE ---
Nursing Note: Patient requesting narcotic pain medication for pain, continues to describe pain as a 10/. RN notified Dr. Diane of patient request and pain. NNO at this time.
[2020-12-30 21:28] VITALS: BP 142/82; PULSE 88; RESP 20; TEMP 36.8; O2SAT 94
--- NOTE | 2020-12-30 22:20 | NUR.NOTE ---
Nursing Note: REFERAL FAXED TO DR MCCABE FOR UTI/BPH 12/30/20
== END 2020-12-30 21:30 | disposition home or self-care (01) ==
PROVIDERS: Emergency Provider Physician Assistant; PCP Family Medicine
DX: N39.0 Urinary tract infection, site not specified (principal); B96.89 Other specified bacterial agents as the cause of diseases classified elsewhere; R10.9 Unspecified abdominal pain; G89.29 Other chronic pain; R11.2 Nausea with vomiting, unspecified; K86.1 Other chronic pancreatitis; M62.838 Other muscle spasm
CPT/HCPCS: 80053; 83690; 96361; 96374; 96375; 99284; 81003; 81015; 85025; 87086; J1885; J2405

== ENCOUNTER 2021-01-01 19:23 | Emergency (ER) | payer MEDICAID, SELFPAY ==
[2021-01-01 19:55] VITALS: BP 138/92; PULSE 88; RESP 18; TEMP 36.3; O2SAT 97
[2021-01-01 20:27] LABS: Absolute Basophil Count 0.06 10^3/uL (0.0-0.2); Absolute Lymphocyte Count 2.57 10^3/uL (1.2-3.4); Absolute Monocyte Count 0.33 10^3/uL (0.1-0.8); Absolute Neutrophil Count 1.87 10^3/uL (1.2-6.7); Basophils % 1.2; HCT 42.3 % (40.0-50.0); HGB 13.7 g/dL (13.5-17.5); Lymphocytes % 52.1; MCH 31.1 pg (27.0-33.0); MCHC 32.4 % (32.0-36.0); MCV 95.9 fL (80-95); MPV 9.1 fL (8.0-11.0); Monocytes % 6.7; Nucleated RBC 0 %; Platelet Count 233 10^3/uL (130-400); RBC 4.41 10^6/uL (4.36-5.78); RDW 17.3 % (11.8-14.1); RDW-SD 60.1 fL; WBC 4.93 10^3/uL (4.4-10.8)
--- NOTE | 2021-01-01 21:22 | W.ED.GENAD ---
Discharge Plan Disposition Patient Disposition: HOME Condition: Stable Discharge Details Clinical Impression: Alcohol intoxication, Abdominal pain Primary Care Provider: Benjamin Bustillos ED Provider: Elias Serna Home Meds and New Rx's Prescriptions: Continued omeprazole 40 mg capsule,delayed release(DR/EC) 40 mg PO DAILY Qty: 90 RF: 3 sucralfate [Carafate] 1 gram tablet 1 g PO BID Qty: 60 RF: 0 Discharge Instructions Instructions: Abdominal Pain (ED), Alcohol Intoxication (ED) Additional Instructions: I strongly recommend that you quit drinking alcohol. Please watch for new or worsening symptoms and return to the ER for any concerns. Take your Carafate and omeprazole as directed. Please follow-up with your primary care provider as already scheduled tomorrow. Medical Decision Making 60-year-old gentleman well-known to our ER presents tonight via EMS requesting Dilaudid for his ongoing abdominal pain. Patient states that he is sure that his labs all been normal. Clinically he appears well, nontoxic. He appears clinically sober. Abdomen with mild discomfort in the epigastric region otherwise unremarkable. He is out of his oxycodone and is scheduled to see his primary care provider tomorrow. I see no clear indication for narcotic analgesia. Discussed that we can obtain IV access, routine laboratory values including a lipase and alcohol level. If laboratory values are grossly abnormal then we could discuss potential analgesia including narcotics in the meantime he could have a GI cocktail and Tylenol. He declines any GI cocktail or Tylenol. Patient states that he is agreeable to having his labs drawn but would like me to see if we can find him a ride home as he is sure they will be normal and he will not be getting any Dilaudid. Laboratory values reveal no evidence of leukocytosis or anemia. Platelet count 233. Electrolytes reveal sodium 143 potassium 4.0 creatinine 0.7 with a GFR greater than 60. Lipase is 161. Alcohol 234 Patient remained stable, requesting to be discharged home. We discussed his benign laboratory values. His alcohol level is 234, his last drink was likely not yesterday morning. Again at this time declining any narcotic medication, he is requesting discharge. Standard discharge and return precautions provided This documentation was generated using [employer] system, please disregard any oddities of phrase or misspellings. Medical Records Medical records reviewed: Yes I reviewed the patient's medical records. Lab Data Lab results reviewed: Yes I reviewed the patient's lab results. Labs: Laboratory Tests Range/Units 01/01/21 01/01/21 01/01/21 20:15 20:15 20:15 WBC (4.4-10.8) 10^3/uL 4.93 RBC (4.36-5.78) 10^6/uL 4.41 Hgb (13.5-17.5) g/dL 13.7 Hct (40.0-50.0) % 42.3 MCV (80-95) fL 95.9 H MCH (27.0-33.0) pg 31.1 MCHC (32.0-36.0) % 32.4 RDW (11.8-14.1) % 17.3 H Plt Count (130-400) 10^3/uL 233 MPV (8.0-11.0) fL 9.1 Immature Gran % 0.0 Neutrophils % 38.0 Lymphocytes % 52.1 Monocytes % 6.7 Eosinophils % 2.0 Basophils % 1.2 Nucleated RBC % % 0 Absolute Neutrophils (1.2-6.7) 10^3/uL 1.87 Absolute Lymphocytes (1.2-3.4) 10^3/uL 2.57 Absolute Monocytes (0.1-0.8) 10^3/uL 0.33 Absolute Eosinophils (0.0-0.7) 10^3/uL 0.10 Absolute Basophils (0.0-0.2) 10^3/uL 0.06 Sodium (136-145) mmol/L 143 Potassium (3.5-5.1) mmol/L 4.0 Chloride (98-107) mmol/L 108 H Carbon Dioxide (21.0-32.0) mmol/L 26.5 Anion Gap (3-11) mmol/L 8.5 BUN (7-18) mg/dL 7 Creatinine (0.70-1.30) mg/dL 0.7 Estimated GFR/1.73 m2 (mL/min/1.73m2) >= 60.00 Glucose (74-106) mg/dL 99 Calcium (8.5-10.1) mg/dL 8.1 L Total Bilirubin (0.2-1.0) mg/dL 0.3 AST (15-37) U/L 24 ALT (16-63) U/L 15 L Alkaline Phosphatase (46-116) U/L 116 Total Protein (6.4-8.2) g/dL 6.9 Albumin (3.4-5.0) g/dL 3.0 L Lipase (73-393) U/L 161 Ethyl Alcohol (<10) mg/dL 234.0 H HPI General Mode of arrival: EMS. Date/Time Provider Initiated Documentation: 01/01/21 20:01. Limitations to Documentation: no limitations. Information obtained by: patient and EMS. HPI Narrative: This is a 60-year-old male, presenting to the ER via EMS, past medical history of alcohol abuse, alcoholic gastritis, chronic pain, hypertension, pancreatitis, current smoker, presenting to the ER today stating that his last drink of alcohol was yesterday morning, 2 beers, presenting for acute on chronic abdominal pain. Patient reports this feels the same as his typical pain. Denies recent illness or trauma. Denies headache, fever, chest pain, shortness of breath, nausea, vomiting, change in bowel or bladder function. Patient states that the only thing that typically helps him is Dilaudid. He states that he sees his primary care provider weekly but missed his appointment last week, is now out of his oxycodone, scheduled to see his primary care provider tomorrow. Reports the pain is moderate to severe. No additional questions or concerns at this time Related Data Home Medications Medication Instructions Recorded Confirmed omeprazole 40 mg capsule,delayed 40 mg PO DAILY #90 cap 10/04/20 01/01/21 release sucralfate [Carafate] 1 g PO BID #60 tab 12/27/20 01/01/21 Previous Rx's Medication Instructions Recorded omeprazole 40 mg capsule,delayed 40 mg PO DAILY #90 cap 10/04/20 release sucralfate [Carafate] 1 g PO BID #60 tab 12/27/20 Allergies Allergy/AdvReac Type Severity Reaction Status Date / Time Penicillins Allergy Verified 01/01/21 21:04 General Stated Complaint: Abd Prob DMITRI: 3 Review of Systems Constitutional Constitutional: Denies fever(s) and Denies headache(s) ENT Ears, Nose, Mouth, and Throat: Denies headache(s) Cardiovascular Cardiovascular: Denies chest pain and Denies dyspnea Respiratory Respiratory: Denies cough and Denies dyspnea Gastrointestinal Gastrointestinal: Reports abdominal pain, Denies nausea and Denies vomiting Musculoskeletal Musculoskeletal: Denies back pain Integumentary/Breasts Skin/Breast: Denies rash Neurologic Neurologic: Denies headache(s) [facility] Medical History Acute UTI Alcohol withdrawal Alcoholic gastritis Alcoholism /alcohol abuse ARDS (adult respiratory distress syndrome) Aspiration pneumonia Chronic pain COVID-19 ruled out by laboratory testing Enterocolitis Fever Ground glass opacity present on imaging of lung Hiccups HTN (hypertension) Hx of hyperlipidemia Hypokalemia Hypomagnesemia Insomnia Myocardial infarction x 2 Pancreatitis Pancreatitis, chronic Pneumonia Presence of pancreatic duct stent (~01/2018) Sean Sears Retention of urine Septal myocardial infarction (01/18/20) probably old, [facility] records Surgical History S/P ERCP (~01/2018) Sean Sears Family History Mother Alcohol abuse Father Alcohol abuse Social History Smoking/Tobacco Use Status: Current every day Tobacco Type: cigarettes Smoking packs per day: 1 Smoking cigarettes per day: 20.0 Smoking risk assessment performed?: Yes Alcohol Intake: current Alcohol Intake frequency: 3 or more drinks per day Alcohol type: beer Drug use: Occasionally Substance use type: marijuana Housing: apartment Do you feel safe at home: Yes Do you feel safe in your relationship?: Yes Exam Const General: cooperative, comfortable and no acute distress Orientation: alert, awake and oriented x3 HENMT Head: normal to inspection, normocephalic and atraumatic Mouth: moist mucous membranes Eyes General: appearance normal, both eyes and all related structures Conjunctivae: conjunctivae normal Neck Neck: normal visual inspection, trachea midline and supple Resp Effort & Inspection: normal respiratory effort and able to speak in complete sentences Auscultation: clear to auscultation bilaterally Cardio Rate: regular rate Rhythm: regular rhythm GI Inspection: normal to inspection Palpation: soft, not firm, no guarding, no pulsatile masses and tender in the epigastrum (Mild); with no rebound tenderness Auscultation: normal bowel sounds Back/Spine/Pelvis Back: No back tenderness Skin General skin exam: no rashes or lesions noted Neuro General: patient alert, patient awake, moves all extremities and no focal motor deficits Speech: speech normal Gait: normal gait Sensory Exam: no sensory deficits noted Psych Appearance: grossly normal Mental Status: mental status grossly normal Course Vital Signs Vital signs: Vital Signs Temperature 36.3 C L 01/01/21 19:55 Pulse 88 01/01/21 19:55 Respiratory Rate 18 01/01/21 19:55 Blood Pressure 138/92 H 01/01/21 19:55 Pulse Oximetry 97 01/01/21 19:55 Temperature 36.3 C L 01/01/21 19:55 Temperature Source Oral 01/01/21 19:55 Pulse 88 01/01/21 19:55 Respiratory Rate 18 01/01/21 19:55 Respiratory Effort 01/01/21 19:59 Blood Pressure 138/92 H 01/01/21 19:55 Pulse Oximetry 97 01/01/21 19:55 Oxygen Delivery Method Room Air 01/01/21 19:55 Oxygen Flow Rate 0 01/01/21 19:55 Pain Level 10 01/01/21 19:55 Lab/Test Results Lab/Test Results: Laboratory Tests Range/Units 01/01/21 20:15 WBC (4.4-10.8) 10^3/uL 4.93 RBC (4.36-5.78) 10^6/uL 4.41 Hgb (13.5-17.5) g/dL 13.7 Hct (40.0-50.0) % 42.3 MCV (80-95) fL 95.9 H MCH (27.0-33.0) pg 31.1 MCHC (32.0-36.0) % 32.4 RDW (11.8-14.1) % 17.3 H Plt Count (130-400) 10^3/uL 233 MPV (8.0-11.0) fL 9.1 Immature Gran % 0.0 Neutrophils % 38.0 Lymphocytes % 52.1 Monocytes % 6.7 Eosinophils % 2.0 Basophils % 1.2 Nucleated RBC % % 0 Absolute Neutrophils (1.2-6.7) 10^3/uL 1.87 Absolute Lymphocytes (1.2-3.4) 10^3/uL 2.57 Absolute Monocytes (0.1-0.8) 10^3/uL 0.33 Absolute Eosinophils (0.0-0.7) 10^3/uL 0.10 Absolute Basophils (0.0-0.2) 10^3/uL 0.06 PAWSS Have you Been Recently Intoxicated or Drunk Within the Last 30 days?: Yes Have you Ever Experienced Previous Episodes of Alcohol Withdrawal?: Yes Have you ever Experienced Withdrawal Seizures?: No Have you ever Experienced Delirium Tremens(DT)s?: No Have you ever undergone Alcohol Rehabilitation Treatment (i.e, inpt ot outpatient treatment programs)?: No Have you ever Experienced Blackouts?: No Have you ever Combined Alcohol with other Downers within the last 90 days?: No Have you ever Combined Alcohol with any other Substance of Abuse during the last 90 days?: Yes Positive Blood Alcohol level on Presentation? [PCS.BAL]: No Evidence of Increased Autonomic Activity (i.e. HR>120, tremor, sweating, agitation, nausea)?: No Result: 4
[2021-01-01 21:28] LABS: Alkaline Phosphatase 116 U/L (46-116); Anion Gap 8.5 mmol/L (3-11); BUN 7 mg/dL (7-18); Bilirubin, Total 0.3 mg/dL (0.2-1.0); CO2 26.5 mmol/L (21.0-32.0); CREATININE 0.7 mg/dL (0.70-1.30); Calcium 8.1 mg/dL (8.5-10.1); Chloride 108 mmol/L (98-107); Glucose 99 mg/dL (74-106); Sodium 143 mmol/L (136-145); Total Protein 6.9 g/dL (6.4-8.2)
[2021-01-01 21:29] LABS: ALT 15 U/L (16-63); AST 24 U/L (15-37); Lipase 161 U/L (73-393)
== END 2021-01-01 21:59 | disposition home or self-care (01) ==
PROVIDERS: Emergency Provider Physician Assistant; PCP Family Medicine
DX: F10.129 Alcohol abuse with intoxication, unspecified (principal); R10.9 Unspecified abdominal pain; Y90.7 Blood alcohol level of 200-239 mg/100 ml
CPT/HCPCS: 36415; 80053; 83690; 99283; 80320; 85025

== ENCOUNTER 2021-01-07 18:47 | Emergency (ER) | payer MEDICAID, SELFPAY ==
--- NOTE | 2021-01-07 18:26 | W.ED.GENAD ---
Discharge Plan Disposition Patient Disposition: HOME Condition: Stable Discharge Details Clinical Impression: Chronic abdominal pain, Alcoholic gastritis Primary Care Provider: Benjamin Bustillos ED Provider: Fidel Smith Home Meds and New Rx's Prescriptions: Continued omeprazole 40 mg capsule,delayed release(DR/EC) 40 mg PO DAILY Qty: 90 RF: 3 sucralfate [Carafate] 1 gram tablet 1 g PO BID Qty: 60 RF: 0 Discharge Instructions Instructions: Gastritis (ED) Additional Instructions: Our family independence case manager will contact you for potential assistance or housing options. Please avoid alcohol use, drink plenty of fluids, and take your omeprazole and Carafate as directed. If you notice any worsening of your symptoms, or any new symptoms such as vomiting, diarrhea, fever, chills, shortness of breath, chest pain, numbness, weakness, or fainting , please return immediately to the emergency department for reevaluation. Please follow up with your primary care provider as soon as possible for reassessment and reevaluation. As always, it was a pleasure participating in your medical care today. Referrals: Benjamin Bustillos DO [Primary Care Provider] - Medical Decision Making <Emi Diane DO - Last Filed: 01/07/21 19:37> 1830 -- 60-year-old male well-known to the emergency department with a history of recurrent pancreatitis and alcoholic gastritis presents for coffee ground emesis and abdominal pain for the past 2 days. Last alcoholic drink today. Patient appears uncomfortable but nontoxic. Heart rate tachycardic to 110s. Blood pressure 129/97. He is afebrile. His abdomen is tense but there is no distention or peritoneal signs. He is diffusely tender. Will place an IV, bolus IV fluids, screening labs, IV Zofran, Protonix and Ativan. There is smell of iron/blood in the room, from patient? GI bleed? No blood in oropharnx or on patient. Will continue to monitor. Bedside guaiac noted green stool which was Hemoccult negative. Pt repeatedly asked nurse for dilaudid but advised that meds ordered and will reassess pending labs. 1919 -- Labs reviewed. White blood cell count 3.57. Hemoglobin 14.4. Hct 42.5. Platelet 217. Case endorsed to Dr. Rudolph to follow up on remainder of labs and final disposition. Consider CT if labs concerning for acute process. Also consider repeat H&H due to report of coffee-ground emesis. Medical Records Medical records reviewed: Yes I reviewed the patient's medical records. Medical records narrative: Last CT abdomen and pelvis from 12/19/20: Impression: Chronic pancreatic changes, consistent with chronic pancreatitis. Underlying neoplasm of the pancreatic head not absolutely excluded but unlikely considering little apparent interval change from March 2019. Marked urinary bladder distension noted, possible acute or chronic obstruction. Wall thickening and distention of jejunal loops, possible enteritis, please correlate clinically. <Fidel Smith, DO - Last Filed: 01/07/21 23:20> Patient was signed out to me by my colleague Kimberlee Diane. Please refer to her HPI, physical exam, assessment and plan. On reevaluation after signout the patient's laboratory work-up has returned, relatively unremarkable. No significant white count, hemoglobin notably stable, no vomiting here. Electrolyte demonstrate minimum sodium elevation of 150, potassium minimally elevated at 5.5, anion gap 15 likely from his alcohol. Renal function good. Lipase normal. On reassessment the patient's vital signs are notably stabilized, abdomen is notably nonsurgical in assessment. No signs of an acute surgical abdomen. We will give 1 more liter of lactated Ringer's, he has had no dysrhythmia here, no peak T waves on rhythm strip or monitor. Unfortunately for the patient social situation he is living at [facility] right now, he has no home, the place that he was most recently staying we offered to contact, he made it clear that he did not want to go back there and he did not want to contact them. We will allow him to stay here in the emergency department this evening until it is light out. We will set him up with case management for follow-up for potential housing. 11:19 PM Patient's laboratory work-up on repeat has returned, and new sodium stable, potassium has normalized. Renal function is good, anion gap has normalized. Patient stable, repeat abdominal exam shows no evidence of an acute surgical abdomen. Suspect chronic gastritis from alcoholism. No indication for emergent CT scan at this time. Recommend close outpatient follow-up. Discussed red flags which to return. I have extensively reviewed the treatment plan and discharge instructions with the patient. I have addressed all patient concerns at this time. The patient was made aware of what symptoms to monitor for that would warrant a return to the emergency department. Discussed the plan with the patient, they demonstrate verbal understanding and agreement with our assessment and plan at this time. The documentation in this chart was dictated using [employer] dictation software. Please excuse any dictation errors. HPI <Emi Diane DO - Last Filed: 01/07/21 19:37> General Mode of arrival: EMS. Date/Time Provider Initiated Documentation: 01/07/21 19:07. Limitations to Documentation: no limitations. Information obtained by: patient. HPI Narrative: Patient is a 60-year-old male with a history of recurrent pancreatitis well-known to the emergency department with multiple recent visits for abdominal pain and nausea presents for diffuse abdominal pain and nausea for the past 2 days. He states he drank two 16 ounce beers in the last 10 hours. Patient states he vomited 4 times today which consisted of food, bile and black and brown material. He denies any bright red blood. He states his last bowel movement was today and green. He states his abdominal pain feels consistent with his usual pancreatitis and is diffuse and sharp. Related Data Home Medications Medication Instructions Recorded Confirmed omeprazole 40 mg capsule,delayed 40 mg PO DAILY #90 cap 10/04/20 01/07/21 release sucralfate [Carafate] 1 g PO BID #60 tab 12/27/20 01/07/21 Previous Rx's Medication Instructions Recorded omeprazole 40 mg capsule,delayed 40 mg PO DAILY #90 cap 10/04/20 release sucralfate [Carafate] 1 g PO BID #60 tab 12/27/20 Allergies Allergy/AdvReac Type Severity Reaction Status Date / Time Penicillins Allergy Verified 01/07/21 18:35 General DMITRI: 3 Review of Systems <DO Arik Franco Last Filed: 01/07/21 19:37> All systems reviewed & are unremarkable except as noted in HPI and below Constitutional Constitutional: Reports as per HPI, Denies chills and Denies fever(s) Eyes Eyes: Denies blurry vision ENT Ears, Nose, Mouth, and Throat: Denies dizziness, Denies sore throat and Denies throat swelling Cardiovascular Cardiovascular: Denies chest pain and Denies dyspnea Respiratory Respiratory: Denies cough and Denies dyspnea Gastrointestinal Gastrointestinal: Reports abdominal pain, Denies diarrhea, Reports nausea and Denies vomiting Genitourinary Genitourinary: Denies hematuria and Denies dysuria Musculoskeletal Musculoskeletal: Denies back pain and Denies numbness Integumentary/Breasts Skin/Breast: Denies lesions and Denies rash Neurologic Neurologic: Denies dizziness, Denies localized weakness and Denies numbness Allergic/Immunologic Allergic/Immunologic: Denies throat swelling PFSH <Emi Diane DO - Last Filed: 01/07/21 19:37> Medical History Acute UTI Alcohol withdrawal Alcoholic gastritis Alcoholism /alcohol abuse ARDS (adult respiratory distress syndrome) Aspiration pneumonia Chronic pain COVID-19 ruled out by laboratory testing Enterocolitis Fever Ground glass opacity present on imaging of lung Hiccups HTN (hypertension) Hx of hyperlipidemia Hypokalemia Hypomagnesemia Insomnia Myocardial infarction x 2 Pancreatitis Pancreatitis, chronic Pneumonia Presence of pancreatic duct stent (~01/2018) Sean [facility] Retention of urine Septal myocardial infarction (01/18/20) probably old, [facility] records Surgical History S/P ERCP (~01/2018) Sean Sears Family History Mother Alcohol abuse Father Alcohol abuse Social History Smoking/Tobacco Use Status: Current every day Tobacco Type: cigarettes Smoking packs per day: 1 Smoking cigarettes per day: 20.0 Smoking risk assessment performed?: Yes Alcohol Intake: current Alcohol Intake frequency: 3 or more drinks per day Alcohol type: beer Drug use: Occasionally Substance use type: marijuana Housing: apartment Do you feel safe at home: Yes Do you feel safe in your relationship?: Yes Exam <Emi Diane DO - Last Filed: 01/07/21 19:37> Const General: cooperative and in distress moderate Orientation: alert, awake and oriented x3 HENMT Head: normal to inspection Face and sinus: normal facial exam Eyes General: appearance normal, both eyes and all related structures EOM: EOM intact bilaterally Neck Neck: normal visual inspection and No submandibular swelling Lymphatic: no lymphadenopathy noted Chest Chest: normal inspection of the chest and no tenderness Resp Effort & Inspection: normal respiratory effort and able to speak in complete sentences Auscultation: clear to auscultation bilaterally Cardio Rate: tachycardic Rhythm: regular rhythm GI Inspection: normal to inspection Palpation: soft, not firm, not rigid and tender (diffuse) Auscultation: hypoactive bowel sounds Skin General skin exam: no rashes or lesions noted Neuro General: patient alert, patient awake and patient oriented x3 Cognition: normal cognition Speech: speech normal Motor: muscle tone normal throughout Sensory Exam: no sensory deficits noted Extrem General: normal to inspection, full ROM, capillary refill normal, no calf tenderness bilaterally and no edema Psych Appearance: grossly normal Mental Status: mental status grossly normal Speech and Movement: speech and movement normal Affect: normal affect Sign Out <Emi Diane DO - Last Filed: 01/07/21 19:37> Sign Out Data: Sign Out Comment: Follow up on labs and final disposition. Consider CT if labs concerning for acute process. May consider repeat H&H as pt reported coffee-ground emesis. Last updated by Emi Diane DO at 01/07/21 19:35
[2021-01-07 18:29] VITALS: BP 129/97; PULSE 118; RESP 18; TEMP 36.4; O2SAT 97
[2021-01-07] MEDS: LORazepam 2 MG/ML VIAL 0.5 MG IVP (19:06)
[2021-01-07] MEDS: Normal Saline 1,000 ML 1000 ML IV (19:07)
[2021-01-07] MEDS: Pantoprazole 40 MG VIAL IVP (19:08)
[2021-01-07] MEDS: Ondansetron 4 MG/2 ML VIAL IVP (19:08)
[2021-01-07] MEDS: Normal Saline Flush 10 ML SYR IVP (19:08)
[2021-01-07 19:11] LABS: Absolute Basophil Count 0.06 10^3/uL (0.0-0.2); Absolute Eosinophil Count 0.02 10^3/uL (0.0-0.7); Absolute Lymphocyte Count 1.66 10^3/uL (1.2-3.4); Absolute Monocyte Count 0.41 10^3/uL (0.1-0.8); Absolute Neutrophil Count 1.42 10^3/uL (1.2-6.7); Basophils % 1.7; Eosinophils % 0.6; HCT 42.5 % (40.0-50.0); HGB 14.4 g/dL (13.5-17.5); Lymphocytes % 46.5; MCH 31.8 pg (27.0-33.0); MCHC 33.9 % (32.0-36.0); MCV 93.8 fL (80-95); MPV 9.1 fL (8.0-11.0); Monocytes % 11.5; Neutrophils % 39.7; Nucleated RBC 0 %; Platelet Count 217 10^3/uL (130-400); RBC 4.53 10^6/uL (4.36-5.78); RDW 17.2 % (11.8-14.1); RDW-SD 58.9 fL; WBC 3.57 10^3/uL (4.4-10.8)
[2021-01-07 20:42] LABS: ALT 23 U/L (16-63); AST 44 U/L (15-37); Albumin 2.8 g/dL (3.4-5.0); Alkaline Phosphatase 118 U/L (46-116); Anion Gap 15.4 mmol/L (3-11); BUN 6 mg/dL (7-18); Bilirubin, Total 0.5 mg/dL (0.2-1.0); CO2 21.6 mmol/L (21.0-32.0); CREATININE 0.8 mg/dL (0.70-1.30); Calcium 7.9 mg/dL (8.5-10.1); Chloride 113 mmol/L (98-107); Glucose 81 mg/dL (74-106); Lipase 136 U/L (73-393); Potassium 5.5 mmol/L (3.5-5.1); Sodium 150 mmol/L (136-145); Total Protein 6.4 g/dL (6.4-8.2)
[2021-01-07] MEDS: Lactated Ringers 1,000 ML 1000 ML IV (20:52)
[2021-01-07] MEDS: LORazepam 2 MG/ML VIAL 1 MG IVP (20:53)
[2021-01-07 22:48] VITALS: BP 129/97; PULSE 118; RESP 18; TEMP 36.4; O2SAT 97
[2021-01-07 23:12] LABS: Anion Gap 11.4 mmol/L (3-11); BUN 3 mg/dL (7-18); CO2 23.6 mmol/L (21.0-32.0); CREATININE 0.7 mg/dL (0.70-1.30); Calcium 7.1 mg/dL (8.5-10.1); Chloride 113 mmol/L (98-107); Glucose 100 mg/dL (74-106); Potassium 3.5 mmol/L (3.5-5.1); Sodium 148 mmol/L (136-145)
--- NOTE | 2021-01-08 00:08 | NUR.NOTE ---
Referral to Care Management, needs help finding housing.Nursing Note:
== END 2021-01-08 04:37 | disposition home or self-care (01) ==
PROVIDERS: Physician Assistant; Emergency Provider Student in an Organized Health Care Education/Training Program; PCP Family Medicine
DX: R10.9 Unspecified abdominal pain (principal); G89.29 Other chronic pain; K29.20 Alcoholic gastritis without bleeding; F10.10 Alcohol abuse, uncomplicated
CPT/HCPCS: 36415; 80048; 80053; 83690; 96361; 96374; 96375; 96376; 99284; 85025; J2060; J2405

== ENCOUNTER 2021-02-12 16:52 | Emergency (ER) | payer MEDICAID, SELFPAY ==
[2021-02-12] VITALS (25 sets, daily range): BP systolic 100–127; BP diastolic 62–101; PULSE 75–87; RESP 16; TEMP 36.3; O2SAT 94–100
[2021-02-12] MEDS: Pantoprazole 40 MG VIAL IVP (17:28)
[2021-02-12] MEDS: Normal Saline 1,000 ML 1000 ML IV (17:29)
[2021-02-12] MEDS: Ketorolac 30 MG/ML VIAL IVP (17:29)
[2021-02-12 17:37] LABS: ALT 20 U/L (16-63); AST 32 U/L (15-37); Absolute Basophil Count 0.03 10^3/uL (0.0-0.2); Absolute Eosinophil Count 0.09 10^3/uL (0.0-0.7); Absolute Monocyte Count 0.52 10^3/uL (0.1-0.8); Absolute Neutrophil Count 1.84 10^3/uL (1.2-6.7); Albumin 3.7 g/dL (3.4-5.0); Alkaline Phosphatase 71 U/L (46-116); Anion Gap 9.7 mmol/L (3-11); BUN 5 mg/dL (7-18); Basophils % 0.6; Bilirubin, Total 0.3 mg/dL (0.2-1.0); CO2 24.3 mmol/L (21.0-32.0); CREATININE 0.7 mg/dL (0.70-1.30); Calcium 8.6 mg/dL (8.5-10.1); Chloride 100 mmol/L (98-107); Eosinophils % 1.9; Glucose 94 mg/dL (74-106); HCT 43.6 % (40.0-50.0); HGB 14.1 g/dL (13.5-17.5); Lipase 179 U/L (73-393); MCH 31.3 pg (27.0-33.0); MCHC 32.3 % (32.0-36.0); MCV 96.7 fL (80-95); MPV 10.4 fL (8.0-11.0); Magnesium 2.5 mg/dL (1.8-2.4); Monocytes % 11.1; Neutrophils % 39.4; Nucleated RBC 0 %; Platelet Count 202 10^3/uL (130-400); Potassium 3.9 mmol/L (3.5-5.1); RBC 4.51 10^6/uL (4.36-5.78); RDW 17.2 % (11.8-14.1); RDW-SD 61.3 fL; Sodium 134 mmol/L (136-145); WBC 4.68 10^3/uL (4.4-10.8)
--- NOTE | 2021-02-12 18:15 | DI.CT_ITS ---
Exam(s) CT ABDOMEN PELVIS W EXAM: CT ABDOMEN PELVIS W CLINICAL HISTORY: abdominal pain. TECHNIQUE: Imaging Protocol: Axial computed tomography images with coronal and sagittal reformatted images were created and reviewed CONTRAST MATERIAL: Intravenous: Omnipaque 350 Contrast volume:100 ml Oral: / no COMPARISON: CT CT CHEST/ABD/PEL W from 04/18/[address] CHEST/ABD/PEL W from 04/18/[address] CHEST PE ABD PELVIS W from 02/04/[address] CHEST PE ABD PELVIS W from 02/04/[address] ABDOMEN PELVIS W from 12/19/2020 FINDINGS: ABDOMEN: Lung Bases: Minimal dependent atelectasis. Small hiatal hernia.. Liver: Normal density. No measurable mass. Gallbladder and biliary tract: Contracted no radiodense calculus or dilation. Pancreas: No change in appearance of dilated pancreatic duct is scattered calcifications as well as a trophy of the body and tail of the pancreas. No surrounding inflammation or discrete mass. Spleen: Normal. Kidneys: Normal size, contour and axis. No radiodense stones or obstructive uropathy. No masses seen. Adrenal glands: No masses seen. Abdominal Aorta: Abdominal portion non-dilated. Atherosclerotic changes. PELVIS: Bladder: Distended urinary bladder no gross wall thickening. No calculi.No focal mass. Bowel: Diverticulosis. No evidence of diverticulitis. Moderate quantity of stool. No obstruction o r bowel wall thickening. Appendix normal. Peritoneal cavity: No ascites, collection or mesenteric inflammatory response. Bones: Within normal limits for age. Reproductive organs: The patient appears to be status post prostatectomy. Lymph nodes: Unremarkable. Impression: Distended urinary bladder, tool to above the level of the umbilicus. Chronic findings in the pancreas. Contracted gallbladder. Diverticulosis. RADIATION DOSE DELIVERED: 774.92mGy.cm Total DLP DATA REPOSITORY: All CT scans at this facility are submitted to the National Radiology Data Registry (NRDR) Dose Index Registry (DIR) with the [employer] ([employer]). RADIATION OPTIMIZATION: All CT scans at this facility use at least one of these dose optimization te chniques: automated exposure control; mA and/or kV adjustment per patient size (includes targeted exa ms where dose is matched to clinical indication); or iterative reconstruction.
--- NOTE | 2021-02-12 18:25 | NUR.NOTE ---
Nursing Note: Pt resting on stretcher, NAD noted, urine sample obtained d/t urinary complaints and sent to lab, awaiting abd CT, cont. to monitor.
[2021-02-12 18:34] LABS: Bilirubin Negative (Negative); Blood Negative (Negative); Clarity Clear (Clear); Glucose Negative (Negative); Ketones Negative (Negative); Leukocyte Esterase Negative (Negative); Nitrite Negative (Negative); Urobilinogen 0.2 EU/dL (Up TO 0.2); pH 6.5 (5-8)
--- NOTE | 2021-02-12 18:55 | NUR.NOTE ---
Nursing Note: Pt to CT with EMS INSTRUCTOR transport via stretcher.
[2021-02-12] MEDS: Omnipaque 350 MG/ML 100 ML BTL IJ (19:01)
--- NOTE | 2021-02-12 19:18 | NUR.NOTE ---
Nursing Note:Pt has returned from CT scan, no new complaints, NAD, cont. to monitor.
--- NOTE | 2021-02-12 20:01 | W.ED.GENAD ---
Discharge Plan Disposition Patient Disposition: HOME Condition: Improving Discharge Details Clinical Impression: Urinary retention Primary Care Provider: Benjamin Bustillos ED Provider: Krupa Regalado Home Meds and New Rx's Prescriptions: New tamsulosin [Flomax] 0.4 mg capsule 0.4 mg PO DAILY Qty: 30 RF: 0 Continued omeprazole 40 mg capsule,delayed release(DR/EC) 40 mg PO DAILY Qty: 90 RF: 3 sucralfate [Carafate] 1 gram tablet 1 g PO BID Qty: 60 RF: 0 No Action oxycodone 20 mg Tablet 20 mg PO BID PRNRF: 0 Discharge Instructions Instructions: Urinary Retention in Men (ED) Additional Instructions: you have refused to be discharged with sharp catheter as recommended. you are at risk for urinary retention which can cause complications including but not limited to infection, worsening pain and kidney injury or damage. call Dr Armenta tomorrow morning for follow up appointment. Referrals: Marco Antonio Armenta MD [ [facility] STAFF PHYSICIAN] - (call in the am) Benjamin Bustillos DO [Primary Care Provider] - Discharge Data Discharge Date/Time-TO BE ENTERED AT DEPARTURE: 02/12/21 20:23 Medical Decision Making patient presents with chronic c/o abd pain. has history of pancreatitis and alcoholic gastritis. will give gi cocktail, iv toradol for pain. routine labs ordered. labs unremarkable. no improvement in his symptoms. he is reporting symptoms of dysuria now. will check UA and CT abd/pelvis ordered. noted to have significant urinary retention. sharp catheter placed and drained 1200 cc after voiding 500. UA negative for infection and renal function normal. reports some bladder spasms post placement but now pain is improved dramatically patient adamantly refusing to be discharged with indwelling catheter. removed at patient request against advise without difficulty. pain is resolved now bladder is emptied. started on flomax 0.4 mg with dose given here. will advise f/u with Dr Armenta [facility]. will be discharged to home with no services Medical Records Medical records reviewed: Yes I reviewed the patient's medical records. Imaging Data Radiologic Study: Imaging: CT Scan (abd/pelvis) Radiologist's impression: Patient Name: Juan Jose Colin #: [id number]: ER Ordering Provider: : [facility] ER Primary Care Provider: Benjamin Bustillos of Exam: 02/12/21Sex: M : 1960Age: 60 Exam(s) PROCEDURE INFORMATION: Exam: CT Abdomen And Pelvis With Contrast Exam date and time: 02/12/2021 6:20 PM Age: 60 years old Clinical indication: Other: Pain TECHNIQUE: Imaging protocol: Computed tomography of the abdomen and pelvis with contrast. COMPARISON: CT ABDOMEN PELVIS W 12/19/2020 7:31 PM FINDINGS: Lungs: There is subpleural atelectasis of the dependent portions of the lungs. Lung bases are clear. Diaphragm: A small hiatal hernia is present. Liver: Normal. No mass. Gallbladder and bile ducts: Gallbladder is partially contracted. Gallbladder wall thickening is noted. No radiopaque gallstones are appreciated. No biliary ductal dilation. Pancreas: Scattered and diffuse pancreatic parenchymal calcifications. Diffuse pancreatic ductal dilation. Pancreatic duct measures up to 8 mm at the proximal segments. Mild fullness at the pancreatic head, however a definitive/measurable pancreatic head lesion is not confidently appreciated in this examination. Spleen: Normal. No splenomegaly. Adrenal glands: Normal. No mass. Kidneys and ureters: Normal. No hydronephrosis. Stomach and bowel: No bowel wall thickening, obstruction, or other acute pathology. Diffuse colonic diverticulosis is present. There is moderately excessive colonic stool content. Appendix: A normal appendix is identified. Intraperitoneal space: No free fluid, fluid collections, or pneumoperitoneum. Retroperitoneal space: No acute abnormalities in the retroperitoneal space. Vasculature: The vasculature demonstrates diffuse marked atherosclerotic calcification. Lymph nodes: No retroperitoneal, pelvic, or mesenteric adenopathy. Urinary bladder: Significantly distended urinary bladder. No significant urinary bladder wall thickening. Reproductive: Unremarkable as visualized. Bones/joints: No acute skeletal pathology. Moderate multilevel degenerative changes of the spine, as manifested by multilevel anterior osteophytes and multilevel decrease in intervertebral disc space. Soft tissues: There is a nonobstructing left inguinal hernia. IMPRESSION: 1. GALLBLADDER FINDINGS ARE MOST PROBABLY RELATED TO CONTRACTED STATE. IF THERE IS CLINICAL CONCERN FOR CHOLECYSTITIS, CONSIDER CORRELATION WITH ULTRASOUND. 2. PANCREATIC FINDINGS ARE MOST IN FAVOR WITH STABLE SEQUELA OF CHRONIC PANCREATITIS. THERE IS STABLE PANCREATIC DUCTAL DILATION PRESENT AND MILD FULLNESS AT THE LEVEL OF THE PANCREATIC HEAD. HOWEVER, I DO NOT SEE ANY DISCRETE OR MEASURABLE PANCREATIC HEAD LESIONS AT THIS TIME. CONSIDER CORRELATION WITH PANCREATIC PROTOCOL MRI IF CLINICALLY WARRANTED. THERE IS NO DEFINITIVE EVIDENCE FOR ACUTE PANCREATITIS APPRECIATED AT THIS TIME EITHER. 3. URINARY BLADDER FINDINGS ARE MOST PROBABLY RELATED TO PROLONGED ABSENCE OF BOWING. DIFFERENTIAL WOULD INCLUDE NEUROGENIC BLADDER OR PARTIAL BLADDER OUTLET OBSTRUCTION. NOTE THAT THERE IS NO SIGNIFICANT PROSTATOMEGALY APPRECIATED AT THIS TIME. 4. INCIDENTAL FINDINGS DETAILED ABOVE. Lab Data Lab results reviewed: Yes I reviewed the patient's lab results. Lab results narrative: Laboratory Results - last 24 hr 02/12/21 02/12/21 02/12/21 17:15 17:15 18:25 WBC 4.68 RBC 4.51 Hgb 14.1 Hct 43.6 MCV 96.7 H MCH 31.3 MCHC 32.3 RDW 17.2 H Plt Count 202 MPV 10.4 Immature Gran % 0.0 Neutrophils % 39.4 Lymphocytes % 47.0 Monocytes % 11.1 Eosinophils % 1.9 Basophils % 0.6 Nucleated RBC % 0 Absolute Neutrophils 1.84 Absolute Lymphocytes 2.20 Absolute Monocytes 0.52 Absolute Eosinophils 0.09 Absolute Basophils 0.03 Sodium 134 L Potassium 3.9 Chloride 100 Carbon Dioxide 24.3 Anion Gap 9.7 BUN 5 L Creatinine 0.7 Estimated GFR/1.73 m2 >= 60.00 Glucose 94 Calcium 8.6 Magnesium 2.5 H Total Bilirubin 0.3 AST 32 ALT 20 Alkaline Phosphatase 71 Total Protein 8.0 Albumin 3.7 Lipase 179 Urine Color Yellow Urine Clarity Clear Urine pH 6.5 Ur Specific [place] 1.010 Urine Protein Negative Urine Ketones Negative Urine Blood Negative Urine Nitrite Negative Urine Bilirubin Negative Urine Urobilinogen 0.2 Ur Leukocyte Esterase Negative Urine Glucose Negative HPI General Mode of arrival: EMS. Date/Time Provider Initiated Documentation: 02/12/21 17:10. Limitations to Documentation: no limitations. Information obtained by: patient. HPI Narrative: presents with 2 day history of abdominal pain, reports drinking alcohol. no fever or vomiting, no nausea. similar history of chronic abdominal pain Related Data Home Medications Medication Instructions Recorded Confirmed omeprazole 40 mg capsule,delayed 40 mg PO DAILY #90 cap 10/04/20 02/12/21 release sucralfate [Carafate] 1 g PO BID #60 tab 12/27/20 02/12/21 oxycodone 20 mg PO BID PRN 02/12/21 02/12/21 tamsulosin [Flomax] 0.4 mg PO DAILY #30 cap 02/12/21 Previous Rx's Medication Instructions Recorded omeprazole 40 mg capsule,delayed 40 mg PO DAILY #90 cap 10/04/20 release sucralfate [Carafate] 1 g PO BID #60 tab 12/27/20 tamsulosin [Flomax] 0.4 mg PO DAILY #30 cap 02/12/21 Allergies Allergy/AdvReac Type Severity Reaction Status Date / Time Penicillins Allergy Verified 02/12/21 16:57 General Stated Complaint: Abd Prob DMITRI: 3 Review of Systems All systems reviewed & are unremarkable except as noted in HPI and below Constitutional Constitutional: Denies fever(s) ENT Ears, Nose, Mouth, and Throat: Denies vertigo and Denies dizziness Cardiovascular Cardiovascular: Denies chest pain and Denies dyspnea Respiratory Respiratory: Denies cough and Denies dyspnea Gastrointestinal Gastrointestinal: Reports abdominal pain, Denies constipation, Denies diarrhea, Denies nausea and Denies vomiting Genitourinary Genitourinary: Denies urinary frequency, Denies urinary hesitancy, Denies urinary incontinence and Denies urinary urgency Musculoskeletal Musculoskeletal: Denies myalgias Neurologic Neurologic: Denies confusion, Denies vertigo and Denies dizziness Psychiatric Psychiatric: Denies confusion, Denies homicidal ideation and Denies suicidal ideation PFSH All Active Problems (Updated 02/12/21 @ 20:07 by Krupa Regalado NP) UTI (urinary tract infection) (Acute) Chronic abdominal pain (Acute) Vomiting (Acute) Alcohol intoxication (Acute) Chronic abdominal pain (Acute) Urinary retention (Acute) Acute on chronic pancreatitis (Acute) GERD (gastroesophageal reflux disease) (Chronic) Abdominal pain (Acute) Alcohol abuse (Chronic) Pancreatitis (Chronic) Chronic abdominal pain (Chronic) Alcohol use disorder (Acute) Chronic alcoholic pancreatitis (Acute) Dilated cbd, acquired (Acute) Constipation (Acute) HTN (hypertension) (Chronic) Chronic pancreatitis (Acute) Hypomagnesemia (Acute) Hypokalemia (Acute) Pancreatic mass (Acute) Chronic anticoagulation (Acute) Alcoholism, chronic (Chronic) Alcoholic gastritis (Acute) Abdominal pain (Acute) Nonadherence to medication (Acute) Common bile duct dilation (Acute) Deep vein thrombosis (DVT) of right upper extremity (Chronic) Medical History Acute UTI Alcohol withdrawal Alcoholic gastritis Alcoholism /alcohol abuse ARDS (adult respiratory distress syndrome) Aspiration pneumonia Chronic pain COVID-19 ruled out by laboratory testing Enterocolitis Fever Ground glass opacity present on imaging of lung Hiccups HTN (hypertension) Hx of hyperlipidemia Hypokalemia Hypomagnesemia Insomnia Myocardial infarction x 2 Pancreatitis Pancreatitis, chronic Pneumonia Presence of pancreatic duct stent (~01/2018) [place] Retention of urine Septal myocardial infarction (01/18/20) probably old, [facility] records Surgical History S/P ERCP (~01/2018) [place] Family History Mother Alcohol abuse Father Alcohol abuse Social History Smoking/Tobacco Use Status: Current every day Tobacco Type: cigarettes Smoking packs per day: 1 Smoking cigarettes per day: 20.0 Smoking risk assessment performed?: Yes Alcohol Intake: current Alcohol Intake frequency: 3 or more drinks per day Alcohol type: beer Drug use: Daily Substance use type: marijuana Housing: apartment Do you feel safe at home: Yes Do you feel safe in your relationship?: Yes Exam Const General: disheveled, frail appearing and ill appearing (older than stated age) chronically Nutritional Appearance: average body habitus HENND Head: normal to inspection, normocephalic and atraumatic Resp Effort & Inspection: normal respiratory effort Cardio Rate: regular rate Rhythm: regular rhythm GI Inspection: distended Palpation: firm, no guarding, no hernias, no masses and tender other (generalized) Skin General skin exam: dry skin Neuro General: patient alert, patient awake and patient oriented x3 Cognition: normal cognition Speech: speech normal Extrem General: normal to inspection and full ROM Course Vital Signs Vital signs: Vital Signs Temperature 36.3 C L 02/12/21 16:52 Pulse 87 02/12/21 16:52 Respiratory Rate 16 02/12/21 16:52 Blood Pressure 125/101 H 02/12/21 16:52 Pulse Oximetry 97 02/12/21 16:52 Temperature 36.3 C L 02/12/21 16:52 Pulse 83 02/12/21 19:31 Respiratory Rate 16 02/12/21 16:52 Respiratory Effort Non-Labored 02/12/21 16:55 Blood Pressure 112/70 02/12/21 19:31 Blood Pressure Mean 80 02/12/21 19:31 Blood Pressure Position Sitting 02/12/21 16:52 Pulse Oximetry 99 02/12/21 19:40 Oxygen Delivery Method Room Air 02/12/21 16:52 Oxygen Flow Rate 0 02/12/21 16:52 Pain Level 10 02/12/21 16:52 Lab/Test Results Lab/Test Results: Laboratory Tests Range/Units 02/12/21 02/12/21 02/12/21 17:15 17:15 18:25 WBC (4.4-10.8) 10^3/uL 4.68 RBC (4.36-5.78) 10^6/uL 4.51 Hgb (13.5-17.5) g/dL 14.1 Hct (40.0-50.0) % 43.6 MCV (80-95) fL 96.7 H MCH (27.0-33.0) pg 31.3 MCHC (32.0-36.0) % 32.3 RDW (11.8-14.1) % 17.2 H Plt Count (130-400) 10^3/uL 202 MPV (8.0-11.0) fL 10.4 Immature Gran % 0.0 Neutrophils % 39.4 Lymphocytes % 47.0 Monocytes % 11.1 Eosinophils % 1.9 Basophils % 0.6 Nucleated RBC % % 0 Absolute Neutrophils (1.2-6.7) 10^3/uL 1.84 Absolute Lymphocytes (1.2-3.4) 10^3/uL 2.20 Absolute Monocytes (0.1-0.8) 10^3/uL 0.52 Absolute Eosinophils (0.0-0.7) 10^3/uL 0.09 Absolute Basophils (0.0-0.2) 10^3/uL 0.03 Sodium (136-145) mmol/L 134 L Potassium (3.5-5.1) mmol/L 3.9 Chloride (98-107) mmol/L 100 Carbon Dioxide (21.0-32.0) mmol/L 24.3 Anion Gap (3-11) mmol/L 9.7 BUN (7-18) mg/dL 5 L Creatinine (0.70-1.30) mg/dL 0.7 Estimated GFR/1.73 m2 (mL/min/1.73m2) >= 60.00 Glucose (74-106) mg/dL 94 Calcium (8.5-10.1) mg/dL 8.6 Magnesium (1.8-2.4) mg/dL 2.5 H Total Bilirubin (0.2-1.0) mg/dL 0.3 AST (15-37) U/L 32 ALT (16-63) U/L 20 Alkaline Phosphatase (46-116) U/L 71 Total Protein (6.4-8.2) g/dL 8.0 Albumin (3.4-5.0) g/dL 3.7 Lipase (73-393) U/L 179 Urine Color (Yellow) Yellow Urine Clarity (Clear) Clear Urine pH (5-8) 6.5 Ur Specific [place] (1.005-1.025) 1.010 Urine Protein (Negative) mg/dL Negative Urine Ketones (Negative) mg/dL Negative Urine Blood (Negative) Negative Urine Nitrite (Negative) Negative Urine Bilirubin (Negative) Negative Urine Urobilinogen (Up TO 0.2) EU/dL 0.2 Ur Leukocyte Esterase (Negative) Negative Urine Glucose (Negative) mg/dL Negative PAWSS Have you Been Recently Intoxicated or Drunk Within the Last 30 days?: Yes Have you Ever Experienced Previous Episodes of Alcohol Withdrawal?: No Have you ever Experienced Withdrawal Seizures?: No Have you ever Experienced Delirium Tremens(DT)s?: Yes Have you ever undergone Alcohol Rehabilitation Treatment (i.e, inpt ot outpatient treatment programs)?: No Have you ever Experienced Blackouts?: Yes Have you ever Combined Alcohol with other Downers within the last 90 days?: Yes Have you ever Combined Alcohol with any other Substance of Abuse during the last 90 days?: Yes Positive Blood Alcohol level on Presentation? [PCS.BAL]: Yes Evidence of Increased Autonomic Activity (i.e. HR>120, tremor, sweating, agitation, nausea)?: No Result: 6
[2021-02-12] MEDS: Tamsulosin 0.4 MG CAPCR PO (20:12)
--- NOTE | 2021-02-12 20:22 | DI.VRAD_ITS ---
PROCEDURE INFORMATION: Exam: CT Abdomen And Pelvis With Contrast Exam date and time: 02/12/2021 6:20 PM Age: 60 years old Clinical indication: Other: Pain TECHNIQUE: Imaging protocol: Computed tomography of the abdomen and pelvis with contrast. COMPARISON: CT ABDOMEN PELVIS W 12/19/2020 7:31 PM FINDINGS: Lungs: There is subpleural atelectasis of the dependent portions of the lungs. Lung bases are clear. Diaphragm: A small hiatal hernia is present. Liver: Normal. No mass. Gallbladder and bile ducts: Gallbladder is partially contracted. Gallbladder wall thickening is noted. No radiopaque gallstones are appreciated. No biliary ductal dilation. Pancreas: Scattered and diffuse pancreatic parenchymal calcifications. Diffuse pancreatic ductal dilation. Pancreatic duct measures up to 8 mm at the proximal segments. Mild fullness at the pancreatic head, however a definitive/measurable pancreatic head lesion is not confidently appreciated in this examination. Spleen: Normal. No splenomegaly. Adrenal glands: Normal. No mass. Kidneys and ureters: Normal. No hydronephrosis. Stomach and bowel: No bowel wall thickening, obstruction, or other acute pathology. Diffuse colonic diverticulosis is present. There is moderately excessive colonic stool content. Appendix: A normal appendix is identified. Intraperitoneal space: No free fluid, fluid collections, or pneumoperitoneum. Retroperitoneal space: No acute abnormalities in the retroperitoneal space. Vasculature: The vasculature demonstrates diffuse marked atherosclerotic calcification. Lymph nodes: No retroperitoneal, pelvic, or mesenteric adenopathy. Urinary bladder: Significantly distended urinary bladder. No significant urinary bladder wall thickening. Reproductive: Unremarkable as visualized. Bones/joints: No acute skeletal pathology. Moderate multilevel degenerative changes of the spine, as manifested by multilevel anterior osteophytes and multilevel decrease in intervertebral disc space. Soft tissues: There is a nonobstructing left inguinal hernia. IMPRESSION: 1. GALLBLADDER FINDINGS ARE MOST PROBABLY RELATED TO CONTRACTED STATE. IF THERE IS CLINICAL CONCERN FOR CHOLECYSTITIS, CONSIDER CORRELATION WITH ULTRASOUND. 2. PANCREATIC FINDINGS ARE MOST IN FAVOR WITH STABLE SEQUELA OF CHRONIC PANCREATITIS. THERE IS STABLE PANCREATIC DUCTAL DILATION PRESENT AND MILD FULLNESS AT THE LEVEL OF THE PANCREATIC HEAD. HOWEVER, I DO NOT SEE ANY DISCRETE OR MEASURABLE PANCREATIC HEAD LESIONS AT THIS TIME. CONSIDER CORRELATION WITH PANCREATIC PROTOCOL MRI IF CLINICALLY WARRANTED. THERE IS NO DEFINITIVE EVIDENCE FOR ACUTE PANCREATITIS APPRECIATED AT THIS TIME EITHER. 3. URINARY BLADDER FINDINGS ARE MOST PROBABLY RELATED TO PROLONGED ABSENCE OF BOWING. DIFFERENTIAL WOULD INCLUDE NEUROGENIC BLADDER OR PARTIAL BLADDER OUTLET OBSTRUCTION. NOTE THAT THERE IS NO SIGNIFICANT PROSTATOMEGALY APPRECIATED AT THIS TIME. 4. INCIDENTAL FINDINGS DETAILED ABOVE. Dictated and Authenticated by: Axel Crum MD. Ordering:JOVAN Gentile MD
--- NOTE | 2021-02-12 20:32 | NUR.NOTE ---
Referral faxed to [facility] Urology to f/u for urinary retention.Nursing Note:
== END 2021-02-12 20:23 | disposition home or self-care (01) ==
PROVIDERS: Emergency Provider Nurse Practitioner Acute Care; PCP Family Medicine
DX: R33.9 Retention of urine, unspecified (principal); R10.9 Unspecified abdominal pain
CPT/HCPCS: 36415; 51702; 80053; 83690; 96361; 96374; 96375; 99285; 74177; 81003; 83735; 85025; 99284; J1885; J3490

== ENCOUNTER 2021-03-09 19:45 | Emergency (ER) | payer MEDICAID, SELFPAY ==
[2021-03-09 19:44] VITALS: BP 151/96; PULSE 112; RESP 18; TEMP 36.5; O2SAT 99
[2021-03-09 20:19] LABS: Lactate 3.7 mmol/L (0.6-1.4)
[2021-03-09 20:23] LABS: Abs Immature Grans 0.02 10^3/uL (0.0-0.06); Absolute Basophil Count 0.05 10^3/uL (0.0-0.2); Absolute Eosinophil Count 0.09 10^3/uL (0.0-0.7); Absolute Monocyte Count 0.48 10^3/uL (0.1-0.8); Absolute Neutrophil Count 1.74 10^3/uL (1.2-6.7); Eosinophils % 1.8; HCT 43.4 % (40.0-50.0); HGB 14.1 g/dL (13.5-17.5); Immature Grans % 0.4; Lymphocytes % 52.2; MCH 31.3 pg (27.0-33.0); MCHC 32.5 % (32.0-36.0); MCV 96.4 fL (80-95); MPV 10.3 fL (8.0-11.0); Monocytes % 9.6; Nucleated RBC 0 %; Platelet Count 198 10^3/uL (130-400); RDW 15.8 % (11.8-14.1); RDW-SD 56.3 fL; WBC 4.98 10^3/uL (4.4-10.8)
[2021-03-09] MEDS: HYDROmorphone 2 MG/ML VIAL 1 MG IVP (20:26)
[2021-03-09] MEDS: Ondansetron 4 MG/2 ML VIAL IVP (20:28)
[2021-03-09] MEDS: Normal Saline 1,000 ML 1000 ML IV ×2 (20:29→21:51)
[2021-03-09 20:41] LABS: ALT 61 U/L (16-63); AST 85 U/L (15-37); Albumin 3.4 g/dL (3.4-5.0); Alkaline Phosphatase 105 U/L (46-116); Anion Gap 19.3 mmol/L (3-11); BUN 10 mg/dL (7-18); Bilirubin, Total 0.3 mg/dL (0.2-1.0); CO2 14.7 mmol/L (21.0-32.0); CREATININE 0.8 mg/dL (0.70-1.30); Calcium 8.1 mg/dL (8.5-10.1); Chloride 96 mmol/L (98-107); Glucose 68 mg/dL (74-106); Lipase 155 U/L (73-393); Magnesium 1.9 mg/dL (1.8-2.4); Sodium 130 mmol/L (136-145); Total Protein 7.8 g/dL (6.4-8.2)
[2021-03-09 20:42] LABS: ETHANOL BLOOD 221.9 mg/dL (<10); Troponin I < 50 ng/L (<or=60)
[2021-03-09 20:54] LABS: Triglyceride 147 mg/dL (<150)
--- NOTE | 2021-03-09 21:15 | DI.CT_ITS ---
Exam(s) CT ABDOMEN PELVIS W EXAM: CT ABDOMEN PELVIS W CLINICAL HISTORY: abd pain- chronic pancreatitis. TECHNIQUE: Imaging Protocol: Axial computed tomography images with coronal and sagittal reformatted images were created and reviewed CONTRAST MATERIAL: Intravenous: Omnipaque 350 Contrast volume:100 ml Oral: / no COMPARISON: CT CT ABDOMEN PELVIS W from 02/12/2021 FINDINGS: ABDOMEN: Lung Bases: Dependent changes. Liver: Normal density. No measurable mass. Gallbladder and biliary tract: No radiodense calculus or dilation. Pancreas: Parenchymal atrophy, ductal dilatation and scattered calcifications, consistent with chroni c pancreatitis.. No pseudocyst or evidence of acute inflammation. Spleen: Normal. Kidneys: Normal size, contour and axis. No radiodense stones or obstructive uropathy. No masses seen. Adrenal glands: No masses seen. Abdominal Aorta: Abdominal portion non-dilated. Atherosclerotic changes. PELVIS: Bladder: Marked distension, to the level of the umbilicus. Diffuse wall thickening.. No calculi.No focal mass. Bowel: Diverticulosis. No obstruction or bowel wall thickening. Appendix normal. Peritoneal cavity: No ascites, collection or mesenteric inflammatory response. Bones: Degenerative disc changes. Reproductive organs: Question prior prostatectomy. Lymph nodes: Unremarkable. Impression: Markedly distended, thick-walled urinary bladder. No hydronephrosis. Evidence of chronic pancreatitis without visible superimposed acute inflammation. RADIATION DOSE DELIVERED: 744.72mGy.cm Total DLP DATA REPOSITORY: All CT scans at this facility are submitted to the National Radiology Data Registry (NRDR) Dose Index Registry (DIR) with the [employer] (A[employer]). RADIATION OPTIMIZATION: All CT scans at this facility use at least one of these dose optimization te chniques: automated exposure control; mA and/or kV adjustment per patient size (includes targeted exa ms where dose is matched to clinical indication); or iterative reconstruction.
[2021-03-09] MEDS: Omnipaque 350 MG/ML 100 ML BTL IJ (21:58)
--- NOTE | 2021-03-09 22:01 | ED.GENADUL_ITS ---
Discharge Plan Disposition Patient Disposition: HOME Condition: Improving Discharge Details Clinical Impression: UTI (urinary tract infection), Chronic abdominal pain, Alcohol intoxication Primary Care Provider: Benjamin Bustillos ED Provider: Alpesh Mota Home Meds and New Rx's Prescriptions: New sulfamethoxazole-trimethoprim [Bactrim DS] 800-160 mg tablet 1 tab PO BID Qty: 14 RF: 0 Continued omeprazole 40 mg capsule,delayed release(DR/EC) 40 mg PO DAILY Qty: 90 RF: 3 sucralfate [Carafate] 1 gram tablet 1 g PO BID Qty: 60 RF: 0 tamsulosin [Flomax] 0.4 mg capsule 0.4 mg PO DAILY Qty: 30 RF: 0 oxycodone 20 mg Tablet 20 mg PO BID PRNRF: 0 Discharge Instructions Instructions: Urinary Tract Infection in Men (ED), Chronic Pain (ED), Alcohol Intoxication (ED) Additional Instructions: It is very important that you take your medications as prescribed including your antibiotic. Continue to stay well-hydrated and follow-up with primary care provider given your chronic abdominal pain and urinary retention. It is also important that you follow-up with your primary care provider to ensure that your Flomax is working to alleviate your urinary retention. If you notice any significant worsening of your condition or change from typical complaints feel free to return to the emergency department for reassessment. Referrals: Benjamin Bustillos DO [Primary Care Provider] - Discharge Data Discharge Date/Time-TO BE ENTERED AT DEPARTURE: 03/09/21 23:52 Medical Decision Making Patient presenting to the emergency department via EMS for chief complaint of abdominal pain. Patient has long ongoing chronic epigastric pain, pancreatitis, and urinary retention. Tonight's complaints are similar with previous episodes and visits to emergency department. Physical exam shows tenderness to epigastrium and left upper quadrant otherwise benign unremarkable exam. Plan to check lab, hydrate, and treat initially for pain and reassess. Patient has findings consistent with alcohol intoxication but lipase and triglycerides are normal at this time. Patient also does state difficulty with urination. Bladder was scanned and does show significant amount of urine and it and patient unable to urinate. Patient refusing catheter at this time. But complaining of continued discomfort and spite of analgesia. Plan to be CT imaging given that patient is not familiar to myself. Review of CT imaging is reassuring and does not appear to show any acute emergent findings of concern. Patient was able to urinate approximately 450 cc with some difficulty. Patient reports that he is not taking his medication and has not taken the Flomax as previously prescribed. 2 L of IV fluids were given and labs reassess. After reassessment of labs patient does show significant signs of improvement, is now having appropriate p.o. intake, and states improvement of discomfort and desire to go home. Patient is still refusing Tripp catheter so Flomax was represcribed. There is some signs of potential urinary tract infection and given that patient is complaining of urinary complaints at this time plan to treat with Bactrim given penicillin allergy. Did discuss with patient that his chronic alcoholism is a significant factor in his continued discomfort. Informed patient that it is recommended that he follow-up with primary care provider for further reassessment and management of his chronic condition. After discussion of diagnosis and plan of care patient has no further needs, questions, or concerns and states clear understanding to return to the emergency department for any worsening symptoms. HPI General Mode of arrival: EMS . Date/Time Provider Initiated Documentation: 03/09/21 19:49 . Limitations to Documentation: no limitations . Information obtained by: patient . History of Present Illness 60 year old M presents to the emergency department with the chief complaint of Abdominal pain, described as severe and similar to prior episodes, with intensity rated at 9. Quality is described as burning and aching, and is localized to the abdomen. and it has been constant. No relieving factors improve symptom(s), Patient did receive the following treatments prior to arrival, none Related Data Home Medications Medication Instructions Recorded Confirmed omeprazole 40 mg capsule,delayed 40 mg PO DAILY #90 cap 10/04/20 02/12/21 release sucralfate [Carafate] 1 g PO BID #60 tab 12/27/20 02/12/21 oxycodone 20 mg PO BID PRN 02/12/21 02/12/21 sulfamethoxazole-trimethoprim 1 tab PO BID #14 tab 03/09/21 [Bactrim DS] tamsulosin [Flomax] 0.4 mg PO DAILY #30 cap 03/09/21 Previous Rx's Medication Instructions Recorded omeprazole 40 mg capsule,delayed 40 mg PO DAILY #90 cap 10/04/20 release sucralfate [Carafate] 1 g PO BID #60 tab 11/05/21 sulfamethoxazole-trimethoprim 1 tab PO BID #14 tab 03/09/21 [Bactrim DS] tamsulosin [Flomax] 0.4 mg PO DAILY #30 cap 03/09/21 Allergies Allergy/AdvReac Type Severity Reaction Status Date / Time Penicillins Allergy Verified 02/12/21 16:57 General Stated Complaint: Abd Prob DMITRI: 3 Review of Systems Constitutional Constitutional: Reports chills, Denies fever(s) and Reports poor appetite Cardiovascular Cardiovascular: Denies chest pain and Denies dyspnea Respiratory Respiratory: Denies cough and Denies dyspnea Gastrointestinal Gastrointestinal: Reports as per HPI, Reports abdominal pain, Denies melena, Denies change in bowel habits, Denies coffee ground emesis, Denies constipation, Reports heartburn, Denies diarrhea, Reports nausea, Reports vomiting and Denies hematemesis Genitourinary Genitourinary: Denies hematuria, Reports difficulty urinating, Denies genital pain, Reports dysuria, Denies scrotal swelling, Denies testicular mass, Denies testicular pain, Denies urinary hesitancy, Denies urinary incontinence and Denies urinary urgency Integumentary/Breasts Skin/Breast: Denies rash PFSH All Active Problems (Updated 03/09/21 @ 23:02 by Alpesh Mota NP) UTI (urinary tract infection) (Acute) Chronic abdominal pain (Acute) Vomiting (Acute) Alcohol intoxication (Acute) Chronic abdominal pain (Acute) Urinary retention (Acute) Acute on chronic pancreatitis (Acute) GERD (gastroesophageal reflux disease) (Chronic) Abdominal pain (Acute) Alcohol abuse (Chronic) Pancreatitis (Chronic) Chronic abdominal pain (Chronic) Alcohol use disorder (Acute) Chronic alcoholic pancreatitis (Acute) Dilated cbd, acquired (Acute) Constipation (Acute) HTN (hypertension) (Chronic) Chronic pancreatitis (Acute) Hypomagnesemia (Acute) Hypokalemia (Acute) Pancreatic mass (Acute) Chronic anticoagulation (Acute) Alcoholism, chronic (Chronic) Alcoholic gastritis (Acute) Abdominal pain (Acute) Nonadherence to medication (Acute) Common bile duct dilation (Acute) Deep vein thrombosis (DVT) of right upper extremity (Chronic) Medical History Acute UTI Alcohol withdrawal Alcoholism /alcohol abuse ARDS (adult respiratory distress syndrome) Aspiration pneumonia Chronic pain COVID-19 ruled out by laboratory testing Enterocolitis Fever Ground glass opacity present on imaging of lung Hiccups Hx of hyperlipidemia Hypokalemia Hypomagnesemia Insomnia Myocardial infarction x 2 Pancreatitis Pancreatitis, chronic Pneumonia Presence of pancreatic duct stent (~01/2018) Sean Sears Retention of urine Septal myocardial infarction (01/18/20) probably old, [facility] records Surgical History S/P ERCP (~01/2018) Sean Sears Family History Mother Alcohol abuse Father Alcohol abuse Social History Smoking/Tobacco Use Status: Current every day Tobacco Type: cigarettes Smoking packs per day: 1 Smoking cigarettes per day: 20.0 Smoking risk assessment performed?: Yes Alcohol Intake: current Alcohol Intake frequency: 3 or more drinks per day Alcohol type: beer Drug use: Daily Substance use type: marijuana Housing: apartment Do you feel safe at home: Yes Do you feel safe in your relationship?: Yes Exam Const General: cooperative Orientation: alert, awake and oriented x3 Resp Effort & Inspection: normal respiratory effort and able to speak in complete sentences Auscultation: clear to auscultation bilaterally Cardio Rate: regular rate Rhythm: regular rhythm Heart Sounds: S1 normal and S2 normal GI Palpation: soft, no hepatosplenomegaly, not firm, guarding in the LUQ, no masses, no pulsatile masses, not rigid and tender in the epigastrum and in the LUQ Auscultation: normal bowel sounds General: bladder normal to palpation Back/Spine/Pelvis Back: no CVA tenderness Neuro General: patient alert, patient awake, patient oriented x3, gait normal and moves all extremities Course Vital Signs Vital signs: Vital Signs Temperature 36.5 C 03/09/21 19:44 Pulse 112 H 03/09/21 19:44 Respiratory Rate 18 03/09/21 19:44 Blood Pressure 151/96 H 03/09/21 19:44 Pulse Oximetry 99 03/09/21 19:44 Temperature 36.5 C 03/09/21 19:44 Temperature Source Skin 03/09/21 19:44 Pulse 112 H 01/16/22 19:44 Respiratory Rate 18 03/09/21 19:44 Respiratory Effort 03/09/21 20:10 Blood Pressure 151/96 H 03/09/21 19:44 Pulse Oximetry 99 03/09/21 19:44 Oxygen Delivery Method Room Air 03/09/21 19:44 Oxygen Flow Rate 0 03/09/21 19:44 Pain Level 10 03/09/21 20:26 Comment 03/09/21 19:44 Lab/Test Results Lab/Test Results: Laboratory Tests Range/Units 03/09/21 03/09/21 03/09/21 20:05 20:05 20:05 WBC (4.4-10.8) 10^3/uL 4.98 RBC (4.36-5.78) 10^6/uL 4.50 Hgb (13.5-17.5) g/dL 14.1 Hct (40.0-50.0) % 43.4 MCV (80-95) fL 96.4 H MCH (27.0-33.0) pg 31.3 MCHC (32.0-36.0) % 32.5 RDW (11.8-14.1) % 15.8 H Plt Count (130-400) 10^3/uL 198 MPV (8.0-11.0) fL 10.3 Immature Gran % 0.4 Neutrophils % 35.0 Lymphocytes % 52.2 Monocytes % 9.6 Eosinophils % 1.8 Basophils % 1.0 Nucleated RBC % % 0 Absolute Neutrophils (1.2-6.7) 10^3/uL 1.74 Absolute Lymphocytes (1.2-3.4) 10^3/uL 2.60 Absolute Monocytes (0.1-0.8) 10^3/uL 0.48 Absolute Eosinophils (0.0-0.7) 10^3/uL 0.09 Absolute Basophils (0.0-0.2) 10^3/uL 0.05 VBG Lactate (0.6-1.4) mmol/L 3.7 H* Sodium (136-145) mmol/L 130 L Potassium (3.5-5.1) mmol/L 4.0 Chloride (98-107) mmol/L 96 L Carbon Dioxide (21.0-32.0) mmol/L 14.7 L Anion Gap (3-11) mmol/L 19.3 H BUN (7-18) mg/dL 10 Creatinine (0.70-1.30) mg/dL 0.8 Estimated GFR/1.73 m2 (mL/min/1.73m2) >= 60.00 Glucose (74-106) mg/dL 68 L Calcium (8.5-10.1) mg/dL 8.1 L Magnesium (1.8-2.4) mg/dL 1.9 Total Bilirubin (0.2-1.0) mg/dL 0.3 AST (15-37) U/L 85 H ALT (16-63) U/L 61 Alkaline Phosphatase (46-116) U/L 105 Troponin I (<or=60) ng/L < 50 Total Protein (6.4-8.2) g/dL 7.8 Albumin (3.4-5.0) g/dL 3.4 Triglycerides (<150) mg/dL 147 Lipase (73-393) U/L 155 Ethyl Alcohol (<10) mg/dL Range/Units 03/09/21 20:05 WBC (4.4-10.8) 10^3/uL RBC (4.36-5.78) 10^6/uL Hgb (13.5-17.5) g/dL Hct (40.0-50.0) % MCV (80-95) fL MCH (27.0-33.0) pg MCHC (32.0-36.0) % RDW (11.8-14.1) % Plt Count (130-400) 10^3/uL MPV (8.0-11.0) fL Immature Gran % Neutrophils % Lymphocytes % Monocytes % Eosinophils % Basophils % Nucleated RBC % % Absolute Neutrophils (1.2-6.7) 10^3/uL Absolute Lymphocytes (1.2-3.4) 10^3/uL Absolute Monocytes (0.1-0.8) 10^3/uL Absolute Eosinophils (0.0-0.7) 10^3/uL Absolute Basophils (0.0-0.2) 10^3/uL VBG Lactate (0.6-1.4) mmol/L Sodium (136-145) mmol/L Potassium (3.5-5.1) mmol/L Chloride (98-107) mmol/L Carbon Dioxide (21.0-32.0) mmol/L Anion Gap (3-11) mmol/L BUN (7-18) mg/dL Creatinine (0.70-1.30) mg/dL Estimated GFR/1.73 m2 (mL/min/1.73m2) Glucose (74-106) mg/dL Calcium (8.5-10.1) mg/dL Magnesium (1.8-2.4) mg/dL Total Bilirubin (0.2-1.0) mg/dL AST (15-37) U/L ALT (16-63) U/L Alkaline Phosphatase (46-116) U/L Troponin I (<or=60) ng/L Total Protein (6.4-8.2) g/dL Albumin (3.4-5.0) g/dL Triglycerides (<150) mg/dL Lipase (73-393) U/L Ethyl Alcohol (<10) mg/dL 221.9 H PAWSS Have you Been Recently Intoxicated or Drunk Within the Last 30 days?: Yes Have you Ever Experienced Previous Episodes of Alcohol Withdrawal?: No Have you ever Experienced Withdrawal Seizures?: No Have you ever Experienced Delirium Tremens(DT)s?: No Have you ever undergone Alcohol Rehabilitation Treatment (i.e, inpt ot outpatient treatment programs)?: No Have you ever Experienced Blackouts?: No Have you ever Combined Alcohol with other Downers within the last 90 days?: No Have you ever Combined Alcohol with any other Substance of Abuse during the last 90 days?: No Positive Blood Alcohol level on Presentation? [PCS.BAL]: Unable to Obtain Evidence of Increased Autonomic Activity (i.e. HR>120, tremor, sweating, agitation, nausea)?: No Result: 1
--- NOTE | 2021-03-09 22:16 | DI.VRAD_ITS ---
PROCEDURE INFORMATION: Exam: CT Abdomen And Pelvis With Contrast Exam date and time: 03/09/2021 21:30 Age: 60 years old Clinical indication: Other: Abd pain - chronic pancreatitis TECHNIQUE: Imaging protocol: Computed tomography of the abdomen and pelvis with contrast. Contrast material: 350 OMNIPAQUE; Contrast volume: 100 ml; Contrast route: INTRAVENOUS (IV); COMPARISON: CT ABDOMEN PELVIS W 02/12/2021 18:53 FINDINGS: Liver: Fatty liver with no mass lesions. Gallbladder and bile ducts: Distended gallbladder with no calcified stones. No gallbladder wall thickening. Pancreas: Findings in the pancreas are similar to previous imaging including ductal dilation chronic calcification and parenchymal atrophy. Findings are consistent with chronic pancreatitis. No acute appearing pancreatitis. Spleen: No splenomegaly or focal lesions. Adrenal glands: No mass. Kidneys and ureters: No renal masses or hydronephrosis bilaterally. Stomach and bowel: Colonic diverticulosis without diverticulitis. No focal pathology in the small bowel. Appendix: No evidence of appendicitis. Intraperitoneal space: No free air. No significant fluid collection. Vasculature: Atherosclerosis. No aortic aneurysm. Lymph nodes: No significantly enlarged lymph nodes. Urinary bladder: Distended urinary bladder, diffuse wall thickening similar to prior. Reproductive: Mild prostatic enlargement. Bones/joints: Demineralization and degenerative changes. No acute fracture or subluxation. Soft tissues: No suspicious lesions. IMPRESSION: 1. Evidence of chronic outlet disease in the urinary bladder and of chronic pancreatitis similar prior. 2. Incidental findings as described. Dictated and Authenticated by: Evelyn Up MD. Ordering:GUY Betts MD
[2021-03-09 22:22] LABS: Bilirubin Negative (Negative); Blood Trace-lysed (Negative); Clarity Cloudy (Clear); Glucose Negative (Negative); Ketones 15 mg/dL (Negative); Leukocyte Esterase Large (Negative); Nitrite Negative (Negative); Urobilinogen 0.2 EU/dL (Up TO 0.2)
--- NOTE | 2021-03-09 22:25 | NUR.NOTE ---
pt is eating a sandwhichNursing Note:
[2021-03-09 22:28] LABS: RBC Negative HPF (0-2); WBC >50 HPF (0-5)
[2021-03-09 22:29] LABS: Bacteria Many HPF (Negative); C & S Indicated? Yes; Crystals Negative HPF (Negative); Epithelial Cells Negative HPF (Negative); Mucus Trace (Negative)
[2021-03-09 23:04] LABS: Anion Gap 12.5 mmol/L (3-11); BUN 9 mg/dL (7-18); CO2 19.5 mmol/L (21.0-32.0); CREATININE 0.7 mg/dL (0.70-1.30); Calcium 6.5 mg/dL (8.5-10.1); Chloride 104 mmol/L (98-107); Glucose 59 mg/dL (74-106); Potassium 3.6 mmol/L (3.5-5.1); Sodium 136 mmol/L (136-145)
== END 2021-03-09 23:52 | disposition home or self-care (01) ==
PROVIDERS: Emergency Provider Nurse Practitioner Family; PCP Family Medicine
DX: N39.0 Urinary tract infection, site not specified (principal); B96.89 Other specified bacterial agents as the cause of diseases classified elsewhere; R10.13 Epigastric pain; G89.29 Other chronic pain; R10.12 Left upper quadrant pain; F10.129 Alcohol abuse with intoxication, unspecified; Y90.8 Blood alcohol level of 240 mg/100 ml or more
CPT/HCPCS: 36415; 80048; 80053; 83690; 96361; 96374; 96375; 99285; 74177; 80320; 81003; 81015; 83605; 83735; 84478; 84484; 85025; 87086; 99284; J2405; J3490

== ENCOUNTER 2021-05-09 14:38 | Emergency (ER) | payer MEDICAID, SELFPAY ==
[2021-05-09 14:41] VITALS: BP 129/73; PULSE 77; RESP 18; TEMP 36.4; O2SAT 95
== END 2021-05-09 15:27 ==
LOC: ER 23:29
PROVIDERS: PCP Family Medicine
DX: Z53.29 Procedure and treatment not carried out because of patient's decision for other reasons (principal)
CPT/HCPCS: 80053; 83690; 80320; 85025

== ENCOUNTER 2021-05-16 18:03 | Emergency (ER) | payer MEDICAID, SELFPAY ==
--- NOTE | 2021-05-16 18:00 | RT.EKG_ITS ---
APPROVED REPORT Exam: Resting ECG Reason for Exam: Chest Pain Patient Location: E HR:89 bpm ECG Measurements Heart Rate 89 AXIS MN 145 P 73 QRSd 89 QRS -15 QT 357 T 44 QTc 435 Conclusion Sinus rhythm...normal P axis, V-rate 60- 99 Low voltage, extremity leads...all extremity leads <0.5mV
[2021-05-16 18:09] VITALS: BP 138/80; PULSE 97; RESP 17; TEMP 36.7; O2SAT 94
--- NOTE | 2021-05-16 18:13 | ED.GENADUL_ITS ---
Discharge Plan Disposition Patient Disposition: HOME Condition: Stable Discharge Details Clinical Impression: Chronic abdominal pain, Alcoholism, chronic, UTI (urinary tract infection) Primary Care Provider: Benjamin Bustillos ED Provider: Jennifer Bowen Home Meds and New Rx's Prescriptions: Continued omeprazole 40 mg capsule,delayed release(DR/EC) 40 mg PO DAILY Qty: 90 3RF sucralfate [Carafate] 1 gram tablet 1 g PO BID Qty: 60 0RF tamsulosin [Flomax] 0.4 mg capsule 0.4 mg PO DAILY Qty: 30 0RF oxycodone 20 mg Tablet 20 mg PO BID [id number] Discharge Instructions Instructions: Gastritis (ED), Urinary Tract Infection in Men (ED) Additional Instructions: Please try to stop drinking. I suspect you have gastritis which is inflammation caused by the alcohol. No evidence of pancreatitis today. He did have a urinary tract infection you were given an antibiotic here for that. Please take an [id number]-oioywrg antacid such as Prevacid or similar once a day. Follow up with primary care provider in 3-5 days. Return to ED sooner if any worsening or concerns. Increase oral fluids. Referrals: Benjamin Bustillos DO [Primary Care Provider] - 3 days Discharge Data Discharge Date/Time-TO BE ENTERED AT DEPARTURE: 05/16/21 22:02 Medical Decision Making 61-year-old male presents to the ER via EMS with chief complaint of abdominal pain, nausea vomiting diarrhea. Reports it worsened yesterday. He also states that he has chest pain and shortness of breath. He does have a history of chronic alcoholism and pancreatitis. He reports his last drink was this morni ng. He also endorses marijuana use. He is well-known to the department. Other past medical history includes DVT, nonadherence to medication, hypokalemia, hypertension, GERD, AR. CBC, CMP, serial troponins, EKG, urinalysis and lipase ordered. CBC shows white blood cell count of 3.16, absolute neutrophils 0.98, CMP largely within normal limits. Calcium slightly low at 8.4 initial troponin within normal limits, urine shows trace blood, large leukocytes greater than 50 WBCs. Ethyl alcohol is 339.6 lipase 189. staff cytotechnologist unable to get an IV access on patient. I did attempt ultrasound-guided IV x3 with no success. CT abdomen pelvis with contrast ordered. I do suspect alcoholic gastritis. Acute pancreatitis is on low suspicion due to normal lipase. 2020: Dr. Brothers at to attempt US guided IV insertion. IV insertion successful. Pt to CT. [facility] CT Abd/Pelvis: IMPRESSION: 1. Chronic pancreatitis features. No acute inflammation evident. Pancreatic atrophy and prominent ductal dilatation stable since 03/09/2021. 2. Fatty liver change and mild cirrhotic features. No focal disease. 3. Small bowel pattern suggesting a mild enteritis. No mechanical obstruction. 4. Nonspecific distention of the urinary bladder. No bladder wall thickening or intravesicular gas. 5. Nonspecific gallbladder distention. No stones. No biliary ductal dilatation. Discussed CT and lab results with patient who verbalized understanding. Patient is to be discharged home with RCT. Patient sent home with 3 tablets of Zofran to go. Instructed to take an jyme-uhn-sdbtedo antacid such as Prevacid or similar. Instructed to stop drinking alcohol. Patient remained hemodynamically stable through the remainder of the stay. This text was generated using [employer] dictation system, please disregard any oddities of phrase or misspellings. Date: 05/16/21 Time: 20:45 Note: Patient seen, examined, and discussed with CHARLOTTE Bowen. I agree with treatment plan as discussed/documented. HPI General Mode of arrival: EMS . Date/Time Provider Initiated Documentation: 05/16/21 18:05 . Limitations to Documentation: physical limitation (Appears intoxicated) . Information obtained by: patient, EMS, RN notes reviewed and old records reviewed . HPI Narrative: 61-year-old male presents to the ER via EMS with chief complaint of abdominal pain, nausea vomiting diarrhea. Reports it worsened yesterday. He also states that he has chest pain and shortness of breath. He does have a history of chronic alcoholism and pancreatitis. He reports his last drink was this morning. He also endorses marijuana use. He is well-known to the department. Other past medical history includes DVT, nonadherence to medication, hypokalemia, hypertension, GERD, AR. Related Data Home Medications Medication Instructions Recorded Confirmed omeprazole 40 mg capsule,delayed 40 mg PO DAILY #90 cap 10/04/20 05/21/21 release sucralfate 1 gram tablet (Carafate) 1 g PO BID #60 tab 12/27/20 05/21/21 oxycodone 20 mg tablet 20 mg PO BID PRN 02/12/21 05/21/21 tamsulosin 0.4 mg capsule (Flomax) 0.4 mg PO DAILY #30 cap 03/09/21 05/21/21 Previous Rx's Medication Instructions Recorded omeprazole 40 mg capsule,delayed 40 mg PO DAILY #90 cap 10/04/20 release sucralfate 1 gram tablet (Carafate) 1 g PO BID #60 tab 12/27/20 tamsulosin 0.4 mg capsule (Flomax) 0.4 mg PO DAILY #30 cap 03/09/21 Allergies Allergy/AdvReac Type Severity Reaction Status Date / Time Penicillins Allergy Verified 05/21/21 17:34 General Stated Complaint: Abd Prob DMITRI: 3 Review of Systems All systems reviewed & are unremarkable except as noted in HPI and below Constitutional Constitutional: Reports as per HPI and Denies fever(s) Cardiovascular Cardiovascular: Reports chest pain and Reports dyspnea Respiratory Respiratory: Reports dyspnea Gastrointestinal Gastrointestinal: Reports as per HPI, Reports abdominal pain, Reports diarrhea, Reports nausea, Reports vomiting and Reports hematemesis (States dark emesis) [facility] All Active Problems (Updated 05/21/21 @ 18:41 by LATOYA Lanza) UTI (urinary tract infection) (Acute) Chronic abdominal pain (Acute) Vomiting (Acute) Alcohol intoxication (Acute) Chronic abdominal pain (Acute) Acute on chronic pancreatitis (Acute) GERD (gastroesophageal reflux disease) (Chronic) Abdominal pain (Acute) Alcohol abuse (Chronic) Pancreatitis (Chronic) Chronic abdominal pain (Chronic) Alcohol use disorder (Acute) Chronic alcoholic pancreatitis (Acute) Dilated cbd, acquired (Acute) Constipation (Acute) HTN (hypertension) (Chronic) Chronic pancreatitis (Acute) Hypomagnesemia (Acute) Hypokalemia (Acute) Pancreatic mass (Acute) Chronic anticoagulation (Acute) Alcoholism, chronic (Chronic) Alcoholic gastritis (Acute) Abdominal pain (Acute) Nonadherence to medication (Acute) Common bile duct dilation (Acute) Deep vein thrombosis (DVT) of right upper extremity (Chronic) Medical History Acute UTI Alcohol withdrawal Alcoholism /alcohol abuse ARDS (adult respiratory distress syndrome) Aspiration pneumonia Chronic pain COVID-19 ruled out by laboratory testing Enterocolitis Fever Ground glass opacity present on imaging of lung Hiccups Hx of hyperlipidemia Hypokalemia Hypomagnesemia Insomnia Myocardial infarction x 2 Pancreatitis Pancreatitis, chronic Pneumonia Presence of pancreatic duct stent (~01/2018) Steffanie Sears. Retention of urine Septal myocardial infarction (01/18/20) probably old, [facility] records Surgical History S/P ERCP (~01/2018) Steffanie Sears. Family History Mother Alcohol abuse Father Alcohol abuse Social History Smoking/Tobacco Use Status: Current every day Tobacco Type: cigarettes Smoking packs per day: 1 Smoking cigarettes per day: 20.0 Smoking risk assessment performed?: Yes Alcohol Intake: current Alcohol Intake frequency: 3 or more drinks per day Alcohol type: beer Drug use: Daily Substance use type: marijuana Housing: apartment Do you feel safe at home: Yes Do you feel safe in your relationship?: Yes Exam Narrative Exam Narrative: Constitutional: Alert and oriented x3. Appears stated age. Normal body habitus. Patient is disheveled. He appears intoxicated and slightly slurring his speech smells of EtOH. Head: Normocephalic, no trauma. Eyes: Pupils PERRL, Red reflex noted, EOM's intact. Eyelids symmetrical without lesions, discharge, or swelling. ENT: Bilateral TM's WNL, External ear normal to inspection, no mastoid TTP, swelling, or erythema, Nasal turbinates WNL, no nasal discharge. Normal dentition, Posterior pharynx WNL, no exudate. Chest: , mildly tachycardic at a rate of 114, normal S1, S2, distal pulses intact. Resp: Lungs clear to auscultation bilaterally, no wheezes, rales, or rhonchi. Abdomen: Soft, non-distended, Normoactive bowel sounds all 4 quads. Tenderness and guarding to all 4 quadrants. Musculoskeletal: Steady gait,5/5 strength to all four extremities. Skin: No suspicious rashes or lesions. Capillary refill less than 2 sec. Neurologic: Cranial nerves II-XII intact. Alert and oriented x 3. Motor: No deficits noted. Sensory: Intact bilaterally all 4 extremities. Reflexes: DTR's intact bilaterally.. Hematologic/Lymphatic: No ecchymosis, no lymphadenopathy. Course Vital Signs Vital signs: Vital Signs Temperature 36.7 C 05/16/21 18:09 Pulse 97 H 05/16/21 18:09 Respiratory Rate 17 05/16/21 18:09 Blood Pressure 138/80 05/16/21 18:09 Pulse Oximetry 94 05/16/21 18:09 Temperature 36.7 C 05/16/21 18:09 Temperature Source Temporal Artery Scan 05/16/21 18:09 Pulse 97 H 05/16/21 18:09 Respiratory Rate 17 05/16/21 18:09 Blood Pressure 138/80 05/16/21 18:09 Blood Pressure Position Supine 05/16/21 18:09 Pulse Oximetry 94 05/16/21 18:09 Oxygen Delivery Method Room Air 05/16/21 18:09 Oxygen Flow Rate 0 05/16/21 18:09 Pain Level 10 05/16/21 18:09 Procedures EJ/Peripheral Line Arm R: Time Out Performed: Yes Skin Cleansed in Sterile Fashion: Yes Size (gauge): 20 IV Secured and Dressing Applied: Yes Patient Tolerated Procedure: well Additional Comments: Ultrasound utilized for direct visualization of peripheral IV placement
[2021-05-16 18:56] LABS: Absolute Basophil Count 0.05 10^3/uL (0.0-0.2); Absolute Eosinophil Count 0.04 10^3/uL (0.0-0.7); Absolute Lymphocyte Count 1.83 10^3/uL (1.2-3.4); Absolute Monocyte Count 0.26 10^3/uL (0.1-0.8); Absolute Neutrophil Count 0.98 10^3/uL (1.2-6.7); Basophils % 1.6; Eosinophils % 1.3; HCT 48.3 % (40.0-50.0); HGB 16.1 g/dL (13.5-17.5); Lymphocytes % 57.9; MCH 30.7 pg (27.0-33.0); MCHC 33.3 % (32.0-36.0); MCV 92.2 fL (80-95); MPV 10.3 fL (8.0-11.0); Monocytes % 8.2; Nucleated RBC 0 %; RBC 5.24 10^6/uL (4.36-5.78); RDW 15.9 % (11.8-14.1); RDW-SD 54.4 fL; WBC 3.16 10^3/uL (4.4-10.8)
[2021-05-16] MEDS: Pantoprazole 40 MG TABCR PO (18:57)
[2021-05-16] MEDS: oxyCODONE 10 MG TAB PO (18:58)
[2021-05-16] MEDS: Ondansetron O.D.T. 4 MG TABEF PO (18:58)
[2021-05-16 19:12] LABS: ALT 30 U/L (16-63); AST 58 U/L (15-37); Albumin 3.8 g/dL (3.4-5.0); Alkaline Phosphatase 94 U/L (46-116); Anion Gap 12.1 mmol/L (3-11); BUN 3 mg/dL (7-18); Bilirubin, Total 0.5 mg/dL (0.2-1.0); CO2 25.9 mmol/L (21.0-32.0); CREATININE 0.7 mg/dL (0.70-1.30); Calcium 8.4 mg/dL (8.5-10.1); Chloride 104 mmol/L (98-107); Glucose 104 mg/dL (74-106); Magnesium 2.4 mg/dL (1.8-2.4); Potassium 4.9 mmol/L (3.5-5.1); Sodium 142 mmol/L (136-145); Total Protein 8.8 g/dL (6.4-8.2); Troponin I < 50 ng/L (<or=60)
[2021-05-16 19:13] LABS: ETHANOL BLOOD 339.6 mg/dL (<10)
[2021-05-16 19:20] LABS: Lipase 189 U/L (73-393)
--- NOTE | 2021-05-16 19:30 | DI.CT_ITS ---
Exam(s) CT ABDOMEN PELVIS W EXAM: CT ABDOMEN PELVIS W CLINICAL HISTORY: Abdominal Pain, Hx of Alcoholic pancreatitis. TECHNIQUE: Imaging Protocol: Axial computed tomography images with coronal and sagittal reformatted images were created and reviewed CONTRAST MATERIAL: Intravenous: Omnipaque 350 Contrast volume:100 ml Oral: no COMPARISON: CT CT ABDOMEN PELVIS W from 03/09/2021 FINDINGS: ABDOMEN: Lung Bases: Normal where visualized. Liver: Normal density. No measurable mass. Gallbladder and biliary tract: Gallbladder somewhat distended but this does not show wall thickening or pericholecystic fluid. Stable appearance from prior. No radiodense calculus or biliary dilation. Pancreas: Atrophic. Calcifications and dilated pancreatic duct. Appearance stable from prior. Splee n: Normal. Kidneys: Normal size, contour and axis. No radiodense stones or obstructive uropathy. No masses seen. Adrenal glands: No masses seen. Abdominal Aorta: Abdominal portion non-dilated. Severe atherosclerotic changes. PELVIS: Bladder: Marked bladder distension. Mild diffuse bladder wall thickening, similar to prior.. No cristobal culi.No focal mass. Bowel: Mild dilatation proximal loops of small bowel and mild mucosal enhancement which could indicat e enteritis. No obstruction. Normal quantity of stool. Mild diverticulosis descending. Appendix n ormal. Peritoneal cavity: No ascites, collection or mesenteric inflammatory response. Bones: degenerative changes. Within normal limits for age. Reproductive organs: Prostate not enlarged. Lymph nodes: Unremarkable. Impression: Evidence of chronic pancreatitis without evidence of acute inflammation. Proximal small bowel enteritis. Stable appearance of marked distention of the urinary bladder with diffuse wall thickening. RADIATION DOSE DELIVERED: 677.5mGy.cm Total DLP DATA REPOSITORY: All CT scans at this facility are submitted to the National Radiology Data Registry (NRDR) Dose Index Registry (DIR) with the [employer] (ACR). RADIATION OPTIMIZATION: All CT scans at this facility use at least one of these dose optimization te chniques: automated exposure control; mA and/or kV adjustment per patient size (includes targeted exa ms where dose is matched to clinical indication); or iterative reconstruction.
[2021-05-16 19:32] LABS: Bilirubin Negative (Negative); Blood Trace-intact (Negative); Clarity Sl Cloudy (Clear); Glucose Negative (Negative); Ketones Negative (Negative); Leukocyte Esterase Large (Negative); Nitrite Negative (Negative); Specific Gravity 1.015 (1.005-1.025); Urobilinogen 0.2 EU/dL (Up TO 0.2)
[2021-05-16 19:43] LABS: C & S Indicated? Yes; WBC >50 HPF (0-5)
[2021-05-16] MEDS: Omnipaque 350 MG/ML 100 ML BTL IJ (20:46)
[2021-05-16] MEDS: Fosfomycin Tromethamine 3 GM PACKET PO (20:48)
--- NOTE | 2021-05-16 21:28 | DI.VRAD_ITS ---
PROCEDURE INFORMATION: Exam: CT Abdomen And Pelvis With Contrast Exam date and time: 05/16/2021 8:35 PM Age: 61 years old Clinical indication: Abdominal pain; Generalized; Patient HX: HX of alcoholic pancreatitis TECHNIQUE: Imaging protocol: Computed tomography of the abdomen and pelvis with contrast. Radiation optimization: All CT scans at this facility use at least one of these dose optimization techniques: automated exposure control; mA and/or kV adjustment per patient size (includes targeted exams where dose is matched to clinical indication); or iterative reconstruction. COMPARISON: CT ABDOMEN PELVIS W 03/09/2021 10:04 PM FINDINGS: Lungs: Lung bases are clear. Pleural spaces: No pleural effusion. Heart: Normal heart size. No pericardial effusion. No visible coronary arterial calcification. Liver: Moderate fatty liver change. Slightly small hepatic size consistent with cirrhosis. Portal and hepatic veins opacify normally. Gallbladder and bile ducts: Nonspecific gallbladder distention. No gallstones. No gallbladder wall thickening. Common bile duct is nondilated. Pancreas: Moderate pancreatic atrophy. Pancreatic duct at the level of the neck and head is significantly dilated at 12 mm. This is similar to a previous study 03/09/2021. There are pancreatic parenchymal calcifications consistent with chronic pancreatitis. No acute pancreatic inflammation. Spleen: The spleen is normal in size, contour and attenuation. Adrenal glands: The adrenal glands are normal in size and contour bilaterally. Kidneys and ureters: The kidneys bilaterally are unremarkable. Normal attenutation. No hydronephrosis. No calculi. Stomach and bowel: Gastric morphology is unremarkable. No edema. No gastric outlet obstruction. Small bowel loops with mild fluid retention and minor mucosal enhancement suggesting a small bowel enteritis. No mechanical obstruction. Large bowel is unremarkable in appearance. Scattered diverticulosis. No acute diverticulitis. Appendix: A non inflamed appendix is seen. Series 4, images 32 through 36. Intraperitoneal space: Unremarkable. No free air. No significant fluid collection. Vasculature: Atherosclerotic aortoiliac calcium. No aneurysmal change. Lymph nodes: Unremarkable. No enlarged lymph nodes. Urinary bladder: Nonspecific urinary bladder distention. No acute features. Reproductive: Unremarkable as visualized. Bones/joints: Degenerative thoracolumbar spine disease. No acute compression fractures. Soft tissues: Unremarkable. IMPRESSION: 1. Chronic pancreatitis features. No acute inflammation evident. Pancreatic atrophy and prominent ductal dilatation stable since 03/09/2021. 2. Fatty liver change and mild cirrhotic features. No focal disease. 3. Small bowel pattern suggesting a mild enteritis. No mechanical obstruction. 4. Nonspecific distention of the urinary bladder. No bladder wall thickening or intravesicular gas. 5. Nonspecific gallbladder distention. No stones. No biliary ductal dilatation. Dictated and Authenticated by: Carlos Bryant MD. Ordering:WAYNE Rodriguez MD
[2021-05-16] MEDS: Ondansetron O.D.T. 4 MG TABEF, 3 TABS/BTL PO (22:01)
== END 2021-05-16 22:02 | disposition home or self-care (01) ==
PROVIDERS: Emergency Provider Registered Nurse Emergency; PCP Family Medicine
DX: R10.9 Unspecified abdominal pain (principal); G89.29 Other chronic pain; F10.229 Alcohol dependence with intoxication, unspecified; N39.0 Urinary tract infection, site not specified; B96.89 Other specified bacterial agents as the cause of diseases classified elsewhere; R07.9 Chest pain, unspecified; Y90.8 Blood alcohol level of 240 mg/100 ml or more; R11.2 Nausea with vomiting, unspecified
CPT/HCPCS: 36415; 80053; 83690; 93005; 99285; 74177; 80320; 81003; 81015; 83735; 84484; 85025; 87086; 93010; 99284; J3490

== ENCOUNTER 2021-05-21 17:19 | Emergency (ER) | payer MEDICAID, SELFPAY ==
[2021-05-21] VITALS (15 sets, daily range): BP systolic 112–154; BP diastolic 67–82; PULSE 69–89; RESP 12–53; TEMP 36; O2SAT 98
[2021-05-21] MEDS: Normal Saline 1,000 ML 1000 ML IV (17:30)
--- NOTE | 2021-05-21 17:40 | ED.GENADUL_ITS ---
Discharge Plan Disposition Patient Disposition: HOME Condition: Stable Discharge Details Clinical Impression: Chronic abdominal pain, Alcoholism, chronic Primary Care Provider: Benjamin Bustillos ED Provider: Elias Serna Home Meds and New Rx's Prescriptions: Continued omeprazole 40 mg capsule,delayed release(DR/EC) 40 mg PO DAILY Qty: 90 3RF sucralfate [Carafate] 1 gram tablet 1 g PO BID Qty: 60 0RF tamsulosin [Flomax] 0.4 mg capsule 0.4 mg PO DAILY Qty: 30 0RF oxycodone 20 mg Tablet 20 mg PO BID [id number] Discharge Instructions Instructions: Chronic Pain (ED), Abuse of Alcohol (ED), Abdominal Pain (ED) Additional Instructions: Your laboratory values do not reveal any obvious emergent process. I strongly recommend that you stop drinking alcohol. Please watch for new or worsening symptoms and return to the ER for any concerns. Lastly, please follow-up with your primary care provider as already scheduled tomorrow. Medical Decision Making 61-year-old gentleman, well-known to our ER, presents for what he describes as acute on chronic abdominal pain specifically requesting IV Dilaudid. Clinically he appears well, nontoxic, abdomen nonsurgical. Patient was evaluated in our ER on 05-16-21, at that time was treated with a single dose of fosfomycin for potential UTI, CT imaging of his abdomen and pelvis did not reveal any acute process, and he was subsequently discharged. He tells me he is scheduled tomorrow to be seen by his primary care provider. At this time I see no clear indication for IV narcotic medication. Plan is to obtain IV access, routine screening laboratory values and observation. If laboratory values are grossly abnormal and potentially repeating CT would be indicated unlikely given recent CT imaging on the . Patient did receive IV fluids. He declines IV Toradol and/or Tylenol. Patient remains hemodynamically stable while under my care. Laboratory values do not reveal any obvious emergent process. Potassium slightly low at 3.4, anion gap minimally elevated at 12.0, lipase is unremarkable at 133, white blood cell count of 5.99. Urinalysis reveals trace blood moderate leukoesterase, greater than 50 white cells. Alcohol level of 328. When reviewing his previous urinalysis, he frequently has greater than 50 white cells. He was given antibiotics on the and today denies any dysuria or hematuria. His culture the other day revealed mixed malorie. Culture is pending today, unlikely an acute UTI, will not treat with antibiotics again today. Given his unremarkable work-up, I do not believe that repeating his CT today is indicated. Patient is requesting his IV be pulled and he would like to be discharged. He is requesting that we find a ride home for him. Patient states if you are not going to help me and I will just leave. Patient is once again requesting IV Dilaudid. I have declined this medication as I do not see a clear indication but have offered him alternatives which he declines. Patient is to follow-up with his primary care provider tomorrow. Strict discharge and return precautions were provided This documentation was generated using [employer] dictation system, please disregard any oddities of phrase or misspellings. Medical Records Medical records reviewed: Yes I reviewed the patient's medical records. Lab Data Lab results reviewed: Yes I reviewed the patient's lab results. Labs: 05/21/21 18:00 Urine - Reflex from Ua Urine Culture - Pending Laboratory Tests Range/Units 05/21/21 05/21/21 05/21/21 17:25 17:25 17:26 WBC (4.4-10.8) 10^3/uL 5.99 RBC (4.36-5.78) 10^6/uL 5.26 Hgb (13.5-17.5) g/dL 15.9 Hct (40.0-50.0) % 48.3 MCV (80-95) fL 91.8 MCH (27.0-33.0) pg 30.2 MCHC (32.0-36.0) % 32.9 RDW (11.8-14.1) % 15.7 H Plt Count (130-400) 10^3/uL 195 MPV (8.0-11.0) fL 9.9 Immature Gran % 0.2 Neutrophils % 36.5 Lymphocytes % 52.8 Monocytes % 8.8 Eosinophils % 1.0 Basophils % 0.7 Nucleated RBC % % 0 Absolute Neutrophils (1.2-6.7) 10^3/uL 2.19 Absolute Lymphocytes (1.2-3.4) 10^3/uL 3.16 Absolute Monocytes (0.1-0.8) 10^3/uL 0.53 Absolute Eosinophils (0.0-0.7) 10^3/uL 0.06 Absolute Basophils (0.0-0.2) 10^3/uL 0.04 Sodium (136-145) mmol/L 139 Potassium (3.5-5.1) mmol/L 3.4 L Chloride (98-107) mmol/L 100 Carbon Dioxide (21.0-32.0) mmol/L 27.0 Anion Gap (3-11) mmol/L 12.0 H BUN (7-18) mg/dL 5 L Creatinine (0.70-1.30) mg/dL 0.8 Estimated GFR/1.73 m2 (mL/min/1.73m2) >= 60.00 Glucose (74-106) mg/dL 110 H Calcium (8.5-10.1) mg/dL 8.7 Total Bilirubin (0.2-1.0) mg/dL 0.6 AST (15-37) U/L 54 H ALT (16-63) U/L 32 Alkaline Phosphatase (46-116) U/L 106 Total Protein (6.4-8.2) g/dL 9.1 H Albumin (3.4-5.0) g/dL 4.2 Lipase (73-393) U/L 133 Urine Color (Yellow) Urine Clarity (Clear) Urine pH (5-8) Ur Specific [place] (1.005-1.025) Urine Protein (Negative) mg/dL Urine Ketones (Negative) mg/dL Urine Blood (Negative) Urine Nitrite (Negative) Urine Bilirubin (Negative) Urine Urobilinogen (Up TO 0.2) EU/dL Ur Leukocyte Esterase (Negative) Urine RBC Urine WBC (0-5) HPF Ur Epithelial Cells Urine Crystals Urine Bacteria (Negative) HPF Urine Mucus Urine Other (Negative) Ur Culture Indicated? Urine Glucose (Negative) mg/dL Ethyl Alcohol (<10) mg/dL 328.1 H Range/Units 05/21/21 18:00 WBC (4.4-10.8) 10^3/uL RBC (4.36-5.78) 10^6/uL Hgb (13.5-17.5) g/dL Hct (40.0-50.0) % MCV (80-95) fL MCH (27.0-33.0) pg MCHC (32.0-36.0) % RDW (11.8-14.1) % Plt Count (130-400) 10^3/uL MPV (8.0-11.0) fL Immature Gran % Neutrophils % Lymphocytes % Monocytes % Eosinophils % Basophils % Nucleated RBC % % Absolute Neutrophils (1.2-6.7) 10^3/uL Absolute Lymphocytes (1.2-3.4) 10^3/uL Absolute Monocytes (0.1-0.8) 10^3/uL Absolute Eosinophils (0.0-0.7) 10^3/uL Absolute Basophils (0.0-0.2) 10^3/uL Sodium (136-145) mmol/L Potassium (3.5-5.1) mmol/L Chloride (98-107) mmol/L Carbon Dioxide (21.0-32.0) mmol/L Anion Gap (3-11) mmol/L BUN (7-18) mg/dL Creatinine (0.70-1.30) mg/dL Estimated GFR/1.73 m2 (mL/min/1.73m2) Glucose (74-106) mg/dL Calcium (8.5-10.1) mg/dL Total Bilirubin (0.2-1.0) mg/dL AST (15-37) U/L ALT (16-63) U/L Alkaline Phosphatase (46-116) U/L Total Protein (6.4-8.2) g/dL Albumin (3.4-5.0) g/dL Lipase (73-393) U/L Urine Color (Yellow) Yellow Urine Clarity (Clear) Cloudy Urine pH (5-8) 6.0 Ur Specific [place] (1.005-1.025) 1.010 Urine Protein (Negative) mg/dL Negative Urine Ketones (Negative) mg/dL Negative Urine Blood (Negative) Trace-intact H Urine Nitrite (Negative) Negative Urine Bilirubin (Negative) Negative Urine Urobilinogen (Up TO 0.2) EU/dL 0.2 Ur Leukocyte Esterase (Negative) Moderate H Urine RBC Not Applicable Urine WBC (0-5) HPF >50 H Ur Epithelial Cells Not Applicable Urine Crystals Not Applicable Urine Bacteria (Negative) HPF Many Urine Mucus Not Applicable Urine Other (Negative) Ur Culture Indicated? Yes Urine Glucose (Negative) mg/dL Negative Ethyl Alcohol (<10) mg/dL HPI General Mode of arrival: EMS . Date/Time Provider Initiated Documentation: 05/21/21 17:25 . Limitations to Documentation: no limitations . Information obtained by: patient . HPI Narrative: This is a 61-year-old gentleman, past medical history of chronic alcohol abuse, pancreatitis, GERD, hypertension, presenting to the ER today via EMS for what he describes as acute on chronic abdominal pain, admits to 2 tall boys of alcohol today. States that he is scheduled to see his primary care provider tomorrow. Patient states that when he gets pain severe the only thing that helps is Dilaudid, and they always get this to me in the ER. Patient denies recent illness or trauma, headache, fever, chest pain, shortness of breath, vomiting, back pain, dysuria, constipation. He has not taken any medications prior to arrival. Patient reports that the pain is moderate to severe, sharp, feels like it always. Related Data Home Medications Medication Instructions Recorded Confirmed omeprazole 40 mg capsule,delayed 40 mg PO DAILY #90 cap 10/04/20 05/21/21 release sucralfate 1 gram tablet (Carafate) 1 g PO BID #60 tab 12/27/20 05/21/21 oxycodone 20 mg tablet 20 mg PO BID PRN 02/12/21 05/21/21 tamsulosin 0.4 mg capsule (Flomax) 0.4 mg PO DAILY #30 cap 03/09/21 05/21/21 Previous Rx's Medication Instructions Recorded omeprazole 40 mg capsule,delayed 40 mg PO DAILY #90 cap 10/04/20 release sucralfate 1 gram tablet (Carafate) 1 g PO BID #60 tab 12/27/20 tamsulosin 0.4 mg capsule (Flomax) 0.4 mg PO DAILY #30 cap 03/09/21 Allergies Allergy/AdvReac Type Severity Reaction Status Date / Time Penicillins Allergy Verified 05/21/21 17:34 General Stated Complaint: Abd Prob DMITRI: 3 Review of Systems Constitutional Constitutional: Denies fever(s) Cardiovascular Cardiovascular: Denies chest pain and Denies dyspnea Respiratory Respiratory: Denies dyspnea Gastrointestinal Gastrointestinal: Reports abdominal pain, Reports nausea and Denies vomiting Genitourinary Genitourinary: Denies dysuria Musculoskeletal Musculoskeletal: Denies back pain Integumentary/Breasts Skin/Breast: Denies rash PFSH All Active Problems (Updated 05/21/21 @ 18:41 by LATOYA Lanza) UTI (urinary tract infection) (Acute) Chronic abdominal pain (Acute) Vomiting (Acute) Alcohol intoxication (Acute) Chronic abdominal pain (Acute) Acute on chronic pancreatitis (Acute) GERD (gastroesophageal reflux disease) (Chronic) Abdominal pain (Acute) Alcohol abuse (Chronic) Pancreatitis (Chronic) Chronic abdominal pain (Chronic) Alcohol use disorder (Acute) Chronic alcoholic pancreatitis (Acute) Dilated cbd, acquired (Acute) Constipation (Acute) HTN (hypertension) (Chronic) Chronic pancreatitis (Acute) Hypomagnesemia (Acute) Hypokalemia (Acute) Pancreatic mass (Acute) Chronic anticoagulation (Acute) Alcoholism, chronic (Chronic) Alcoholic gastritis (Acute) Abdominal pain (Acute) Nonadherence to medication (Acute) Common bile duct dilation (Acute) Deep vein thrombosis (DVT) of right upper extremity (Chronic) Medical History Acute UTI Alcohol withdrawal Alcoholism /alcohol abuse ARDS (adult respiratory distress syndrome) Aspiration pneumonia Chronic pain COVID-19 ruled out by laboratory testing Enterocolitis Fever Ground glass opacity present on imaging of lung Hiccups Hx of hyperlipidemia Hypokalemia Hypomagnesemia Insomnia Myocardial infarction x 2 Pancreatitis Pancreatitis, chronic Pneumonia Presence of pancreatic duct stent (~01/2018) Sean Sears Retention of urine Septal myocardial infarction (01/18/20) probably old, [facility] records Surgical History S/P ERCP (~01/2018) Sean Sears Family History Mother Alcohol abuse Father Alcohol abuse Social History Smoking/Tobacco Use Status: Current every day Tobacco Type: cigarettes Smoking packs per day: 1 Smoking cigarettes per day: 20.0 Smoking risk assessment performed?: Yes Alcohol Intake: current Alcohol Intake frequency: 3 or more drinks per day Alcohol type: beer Drug use: Daily Substance use type: marijuana Housing: apartment Do you feel safe at home: Yes Do you feel safe in your relationship?: Yes Exam Const General: cooperative, comfortable and no acute distress Orientation: alert, awake and oriented x3 Other: EtOH-like substance on breath HENMT Head: normal to inspection, normocephalic and atraumatic Face and sinus: normal facial exam Mouth: moist mucous membranes Eyes General: appearance normal, both eyes and all related structures Conjunctivae: conjunctivae normal Neck Neck: normal visual inspection, trachea midline and supple Resp Effort & Inspection: normal respiratory effort and able to speak in complete sentences Auscultation: clear to auscultation bilaterally Cardio Rate: regular rate Rhythm: regular rhythm GI Inspection: normal to inspection Palpation: soft, not firm, no guarding, no pulsatile masses and tender in the epigastrum (Mild) and in the LUQ (Mild); Negative for with no rebound tenderness Auscultation: normal bowel sounds Back/Spine/Pelvis Back: no CVA tenderness and No back tenderness Skin General skin exam: no rashes or lesions noted Neuro General: patient alert, patient awake, patient oriented x3, moves all extremities and no focal motor deficits Cognition: normal cognition Speech: speech normal Gait: normal gait Motor: muscle tone normal throughout Sensory Exam: no sensory deficits noted Extrem General: normal to inspection, full ROM and capillary refill normal Psych Appearance: grossly normal Mental Status: mental status grossly normal Course Vital Signs Vital signs: Vital Signs Temperature 36.0 C L 05/21/21 17:19 Pulse 89 05/21/21 17:19 Respiratory Rate 22 05/21/21 17:19 Blood Pressure 154/81 H 05/21/21 17:19 Pulse Oximetry 98 05/21/21 17:19 Temperature 36.0 C L 05/21/21 17:19 Temperature Source Temporal Artery Scan 05/21/21 17:19 Pulse 80 05/21/21 17:31 Pulse 75 05/21/21 17:31 Respiratory Rate 16 05/21/21 17:31 Respiratory Effort 05/21/21 17:31 Blood Pressure 135/82 05/21/21 17:31 Blood Pressure Mean 94 05/21/21 17:31 Blood Pressure Position Supine 05/21/21 17:19 Pulse Oximetry 98 05/21/21 17:19 Oxygen Delivery Method Room Air 05/21/21 17:19 Oxygen Flow Rate 0 05/21/21 17:19 Pain Level 10 05/21/21 17:19 PAWSS Have you Been Recently Intoxicated or Drunk Within the Last 30 days?: Yes Have you Ever Experienced Previous Episodes of Alcohol Withdrawal?: Yes Have you ever Experienced Withdrawal Seizures?: No Have you ever Experienced Delirium Tremens(DT)s?: No Have you ever undergone Alcohol Rehabilitation Treatment (i.e, inpt ot outpatient treatment programs)?: No Have you ever Experienced Blackouts?: No Have you ever Combined Alcohol with other Downers within the last 90 days?: No Have you ever Combined Alcohol with any other Substance of Abuse during the last 90 days?: No Evidence of Increased Autonomic Activity (i.e. HR>120, tremor, sweating, agitat ion, nausea)?: No Result: 2
[2021-05-21 17:45] LABS: Abs Immature Grans 0.01 10^3/uL (0.0-0.06); Absolute Basophil Count 0.04 10^3/uL (0.0-0.2); Absolute Eosinophil Count 0.06 10^3/uL (0.0-0.7); Absolute Lymphocyte Count 3.16 10^3/uL (1.2-3.4); Absolute Monocyte Count 0.53 10^3/uL (0.1-0.8); Absolute Neutrophil Count 2.19 10^3/uL (1.2-6.7); Basophils % 0.7; HCT 48.3 % (40.0-50.0); HGB 15.9 g/dL (13.5-17.5); Immature Grans % 0.2; Lymphocytes % 52.8; MCH 30.2 pg (27.0-33.0); MCHC 32.9 % (32.0-36.0); MCV 91.8 fL (80-95); MPV 9.9 fL (8.0-11.0); Monocytes % 8.8; Neutrophils % 36.5; Nucleated RBC 0 %; Platelet Count 195 10^3/uL (130-400); RBC 5.26 10^6/uL (4.36-5.78); RDW 15.7 % (11.8-14.1); RDW-SD 53.3 fL; WBC 5.99 10^3/uL (4.4-10.8)
[2021-05-21 18:19] LABS: Bilirubin Negative (Negative); Blood Trace-intact (Negative); Clarity Cloudy (Clear); Glucose Negative (Negative); Ketones Negative (Negative); Leukocyte Esterase Moderate (Negative); Nitrite Negative (Negative); Urobilinogen 0.2 EU/dL (Up TO 0.2)
[2021-05-21 18:20] LABS: ALT 32 U/L (16-63); AST 54 U/L (15-37); Albumin 4.2 g/dL (3.4-5.0); Alkaline Phosphatase 106 U/L (46-116); BUN 5 mg/dL (7-18); Bilirubin, Total 0.6 mg/dL (0.2-1.0); CREATININE 0.8 mg/dL (0.70-1.30); Calcium 8.7 mg/dL (8.5-10.1); Chloride 100 mmol/L (98-107); Glucose 110 mg/dL (74-106); Lipase 133 U/L (73-393); Potassium 3.4 mmol/L (3.5-5.1); Sodium 139 mmol/L (136-145); Total Protein 9.1 g/dL (6.4-8.2)
[2021-05-21 18:21] LABS: ETHANOL BLOOD 328.1 mg/dL (<10)
[2021-05-21 18:29] LABS: WBC >50 HPF (0-5)
[2021-05-21 18:30] LABS: Bacteria Many HPF (Negative); C & S Indicated? Yes
== END 2021-05-21 18:45 | disposition home or self-care (01) ==
PROVIDERS: Emergency Provider Physician Assistant; PCP Family Medicine
DX: R10.9 Unspecified abdominal pain (principal); G89.29 Other chronic pain; F10.20 Alcohol dependence, uncomplicated; Y90.8 Blood alcohol level of 240 mg/100 ml or more
CPT/HCPCS: 36415; 80053; 83690; 96360; 99284; 80320; 81003; 81015; 85025; 87086; 99283

== ENCOUNTER 2021-05-22 13:42 | Emergency (ER) | payer MEDICAID, SELFPAY ==
[2021-05-22 13:43] VITALS: BP 121/79; PULSE 94; RESP 16; TEMP 36.5; O2SAT 96
== END 2021-05-22 14:07 ==
PROVIDERS: Emergency Provider Physician Assistant; PCP Family Medicine
DX: Z53.21 Procedure and treatment not carried out due to patient leaving prior to being seen by health care provider (principal)
CPT/HCPCS: 80053; 83690; 85025

== ENCOUNTER 2021-05-28 16:41 | Emergency (ER) | payer MEDICAID, SELFPAY ==
[2021-05-28 16:29] VITALS: BP 92/65; PULSE 96; RESP 16; TEMP 36.4; O2SAT 98
--- NOTE | 2021-05-28 16:30 | DI.RAD_ITS ---
Exam(s) XR PORTABLE CHEST AP EXAM: XR PORTABLE CHEST AP CLINICAL HISTORY: cough. TECHNIQUE: 2D digital imaging was performed. COMPARISON: CR XR CHEST 2V PA LATERAL from 07/16/2020 FINDINGS: Single AP portable view. Heart size is upper normal. The mediastinum is not widened. Lungs are clear. No infiltrates nor obvious pleural effusions. Calcified right suprahilar again IMPRESSION: No acute pulmonary findings on this single AP portable view of the chest. DATA REPOSITORY: RADIATION DOSE DELIVERED: All CT scans at this facility use at least one of these dose optimization techniques: automated exposure control; mA and/or kV adjustment per patient size (includes targeted e xams where dose is matched to clinical indication); or iterative reconstruction.
--- NOTE | 2021-05-28 17:16 | DI.VRAD_ITS ---
PROCEDURE INFORMATION: Exam: XR Chest Exam date and time: 05/28/2021 4:46 PM Age: 61 years old Clinical indication: Patient HX: Cough, best images possible. TECHNIQUE: Imaging protocol: XR of the chest. Views: 1 view. COMPARISON: CR XR CHEST 2V PA LATERAL 07/16/2020 11:32 AM FINDINGS: Limitations: Somewhat limited due to oblique positioning. Lungs: Unremarkable. No consolidation. Pleural spaces: Unremarkable. No pleural effusion. No pneumothorax. Heart/Mediastinum: Unremarkable. No cardiomegaly. Bones/joints: Unremarkable. IMPRESSION: No acute findings. Dictated and Authenticated by: Aga Lancaster MD. Ordering:NÉSTOR Griffin MD
--- NOTE | 2021-05-28 17:19 | ED.GENADUL_ITS ---
Discharge Plan Disposition Patient Disposition: HOME Condition: Stable Discharge Details Clinical Impression: Chronic abdominal pain, Alcoholism, chronic, UTI (urinary tract infection) Primary Care Provider: Benjamin Bustillos ED Provider: Elias Serna Home Meds and New Rx's Prescriptions: New levofloxacin 250 mg tablet 250 mg PO DAILY Qty: 4 0RF Continued omeprazole 40 mg capsule,delayed release(DR/EC) 40 mg PO DAILY Qty: 90 3RF sucralfate [Carafate] 1 gram tablet 1 g PO BID Qty: 60 0RF tamsulosin [Flomax] 0.4 mg capsule 0.4 mg PO DAILY Qty: 30 0RF oxycodone 20 mg Tablet 20 mg PO BID PRN0RF Discharge Instructions Instructions: Urinary Tract Infection in Men (ED), Chronic Pain (ED) Additional Instructions: You have been provided with a medical screening evaluation here in the ER and no obvious emergent process was identified. Please take Levaquin as directed for an urinary tract infection. The recovery rn was here to discuss your detox options and will help you at 830 tomorrow morning with an intake at [facility], please follow their instructions. Lastly, contact your primary care provider discuss your ER visit need for outpatient reevaluation Medical Decision Making This is a 61-year-old gentleman, well-known to our ER, presenting to the ER this evening with multiple complaints. First reports acute on chronic abdominal pain, reports last drink was sometime this morning or afternoon. Also reports a dry cough, concern for UTI, and requesting help with detox. Given his multitude of complaints, will obtain IV access, obtain CBC, CMP, lipase, urinalysis, alcohol level, chest x-ray and Covid swab. Will request that the recovery rn come speak with the patient Patient is requesting Dilaudid. I have offered him Tylenol or Toradol, he declined Laboratory values reveal no evidence of leukocytosis or anemia. His potassium is 3.1. Will replenish with 40 p.o. and obtain EKG. Creatinine 0.7 with a GFR greater than 60. Calcium is 8.0, appears chronically low. Magnesium 2.2, urinalysis trace blood, moderate leuk esterase, greater than 50 white cells. Alcohol level 229. COVID neg Chest x-ray Given his known noncompliance, UTI, will treat with Levaquin as this is once a day dosing. First dose to be given here. assistant baseball coach evaluated the patient and will help the patient tomorrow morning at 8:30 AM do an intake at [facility] where he hopes to go. Discussed work-up with patient as well as plan set forth by the recovery rn. Patient is quite comfortable with this plan and has no additional questions or concerns. Standard discharge and return precautions were provided This documentation was generated using [employer]ation system, please disregard any oddities of phrase or misspellings. Medical Records Medical records reviewed: Yes I reviewed the patient's medical records. Imaging Data Radiologic Study: Attestation: I personally reviewed and interpreted this imaging study as follows: Imaging: X-Ray Radiologist's impression: PROCEDURE INFORMATION: Exam: XR Chest Exam date and time: 05/28/2021 4:46 PM Age: 61 years old Clinical indication: Patient HX: Cough, best images possible. TECHNIQUE: Imaging protocol: XR of the chest. Views: 1 view. COMPARISON: CR XR CHEST 2V PA LATERAL 07/16/2020 11:32 AM FINDINGS: Limitations: Somewhat limited due to oblique positioning. Lungs: Unremarkable. No consolidation. Pleural spaces: Unremarkable. No pleural effusion. No pneumothorax. Heart/Mediastinum: Unremarkable. No cardiomegaly. Bones/joints: Unremarkable. IMPRESSION: No acute findings. Lab Data Lab results reviewed: Yes I reviewed the patient's lab results. Labs: 05/28/21 17:55 Urine - Reflex from Ua Urine Culture - Pending Laboratory Tests Range/Units 05/28/21 05/28/21 05/28/21 16:50 17:30 17:30 WBC (4.4-10.8) 10^3/uL 5.27 RBC (4.36-5.78) 10^6/uL 4.58 Hgb (13.5-17.5) g/dL 14.4 Hct (40.0-50.0) % 42.6 MCV (80-95) fL 93.0 MCH (27.0-33.0) pg 31.4 MCHC (32.0-36.0) % 33.8 RDW (11.8-14.1) % 15.0 H Plt Count (130-400) 10^3/uL 160 MPV (8.0-11.0) fL 10.0 Immature Gran % 0.2 Neutrophils % 36.8 Lymphocytes % 47.6 Monocytes % 13.7 Eosinophils % 0.9 Basophils % 0.8 Nucleated RBC % % 0 Absolute Neutrophils (1.2-6.7) 10^3/uL 1.94 Absolute Lymphocytes (1.2-3.4) 10^3/uL 2.51 Absolute Monocytes (0.1-0.8) 10^3/uL 0.72 Absolute Eosinophils (0.0-0.7) 10^3/uL 0.05 Absolute Basophils (0.0-0.2) 10^3/uL 0.04 Sodium (136-145) mmol/L 137 Potassium (3.5-5.1) mmol/L 3.1 L Chloride (98-107) mmol/L 100 Carbon Dioxide (21.0-32.0) mmol/L 21.2 Anion Gap (3-11) mmol/L 15.8 H BUN (7-18) mg/dL 7 Creatinine (0.70-1.30) mg/dL 0.7 Estimated GFR/1.73 m2 (mL/min/1.73m2) >= 60.00 Glucose (74-106) mg/dL 96 Calcium (8.5-10.1) mg/dL 8.0 L Magnesium (1.8-2.4) mg/dL Total Bilirubin (0.2-1.0) mg/dL 0.8 AST (15-37) U/L 66 H ALT (16-63) U/L 34 Alkaline Phosphatase (46-116) U/L 96 Total Protein (6.4-8.2) g/dL 7.8 Albumin (3.4-5.0) g/dL 3.5 Lipase (73-393) U/L 163 Urine Color (Yellow) Urine Clarity (Clear) Urine pH (5-8) Ur Specific Malin (1.005-1.025) Urine Protein (Negative) mg/dL Urine Ketones (Negative) mg/dL Urine Blood (Negative) Urine Nitrite (Negative) Urine Bilirubin (Negative) Urine Urobilinogen (Up TO 0.2) EU/dL Ur Leukocyte Esterase (Negative) Urine RBC (0-2) HPF Urine WBC (0-5) HPF Ur Epithelial Cells (Negative) HPF Urine Crystals (Negative) HPF Urine Bacteria (Negative) HPF Urine Casts (Negative) LPF Urine Mucus (Negative) Ur Culture Indicated? Urine Glucose (Negative) mg/dL Ethyl Alcohol (<10) mg/dL COVID-19 Source Nasal/Nares SARS-CoV-2 (PCR) (Negative) Negative Range/Units 05/28/21 05/28/21 05/28/21 17:30 17:30 17:55 WBC (4.4-10.8) 10^3/uL RBC (4.36-5.78) 10^6/uL Hgb (13.5-17.5) g/dL Hct (40.0-50.0) % MCV (80-95) fL MCH (27.0-33.0) pg MCHC (32.0-36.0) % RDW (11.8-14.1) % Plt Count (130-400) 10^3/uL MPV (8.0-11.0) fL Immature Gran % Neutrophils % Lymphocytes % Monocytes % Eosinophils % Basophils % Nucleated RBC % % Absolute Neutrophils (1.2-6.7) 10^3/uL Absolute Lymphocytes (1.2-3.4) 10^3/uL Absolute Monocytes (0.1-0.8) 10^3/uL Absolute Eosinophils (0.0-0.7) 10^3/uL Absolute Basophils (0.0-0.2) 10^3/uL Sodium (136-145) mmol/L Potassium (3.5-5.1) mmol/L Chloride (98-107) mmol/L Carbon Dioxide (21.0-32.0) mmol/L Anion Gap (3-11) mmol/L BUN (7-18) mg/dL Creatinine (0.70-1.30) mg/dL Estimated GFR/1.73 m2 (mL/min/1.73m2) Glucose (74-106) mg/dL Calcium (8.5-10.1) mg/dL Magnesium (1.8-2.4) mg/dL 2.2 Total Bilirubin (0.2-1.0) mg/dL AST (15-37) U/L ALT (16-63) U/L Alkaline Phosphatase (46-116) U/L Total Protein (6.4-8.2) g/dL Albumin (3.4-5.0) g/dL Lipase (73-393) U/L Urine Color (Yellow) Yellow Urine Clarity (Clear) Clear Urine pH (5-8) 6.0 Ur Specific Malin (1.005-1.025) 1.015 Urine Protein (Negative) mg/dL Negative Urine Ketones (Negative) mg/dL Negative Urine Blood (Negative) Trace-intact H Urine Nitrite (Negative) Negative Urine Bilirubin (Negative) Negative Urine Urobilinogen (Up TO 0.2) EU/dL 0.2 Ur Leukocyte Esterase (Negative) Moderate H Urine RBC (0-2) HPF 0-2 Urine WBC (0-5) HPF >50 H Ur Epithelial Cells (Negative) HPF Few Urine Crystals (Negative) HPF Negative Urine Bacteria (Negative) HPF Moderate Urine Casts (Negative) LPF Negative Urine Mucus (Negative) Negative Ur Culture Indicated? Yes Urine Glucose (Negative) mg/dL Negative Ethyl Alcohol (<10) mg/dL 229.9 H COVID-19 Source SARS-CoV-2 (PCR) (Negative) ECG Data Attestation: I personally reviewed and interpreted this ECG (s) as follows: Interpretation: Please see official report by Dr. Smith. Sinus rhythm, ventricular rate of 85, no STEMI. HPI General Mode of arrival: EMS . Date/Time Provider Initiated Documentation: 05/28/21 17:19 . Limitations to Documentation: no limitations . Information obtained by: patient and EMS . History of Present Illness 61 year old M presents to the emergency department with the chief complaint of abd pain, etoh detox, described as severe, with intensity rated at 10. Quality is described as sharp, and is localized to the abdomen. Patient started experiencing this year(s) (chronic) and it has been constant. improves with No relieving factors improve symptom(s), Other factors that worsen symptoms (etoh) . Patient notes cough, nausea/vomiting and other (dysuria). Patient did receive the following treatments prior to arrival, none Related Data Home Medications Medication Instructions Recorded Confirmed omeprazole 40 mg capsule,delayed 40 mg PO DAILY #90 cap 10/04/20 05/28/21 release sucralfate 1 gram tablet (Carafate) 1 g PO BID #60 tab 12/27/20 05/28/21 oxycodone 20 mg tablet 20 mg PO BID PRN 02/12/21 05/28/21 tamsulosin 0.4 mg capsule (Flomax) 0.4 mg PO DAILY #30 cap 03/09/21 05/28/21 levofloxacin 250 mg tablet 250 mg PO DAILY #4 tab 05/28/21 Previous Rx's Medication Instructions Recorded omeprazole 40 mg capsule,delayed 40 mg PO DAILY #90 cap 10/04/20 release sucralfate 1 gram tablet (Carafate) 1 g PO BID #60 tab 12/27/20 tamsulosin 0.4 mg capsule (Flomax) 0.4 mg PO DAILY #30 cap 03/09/21 levofloxacin 250 mg tablet 250 mg PO DAILY #4 tab 05/28/21 Allergies Allergy/AdvReac Type Severity Reaction Status Date / Time Penicillins Allergy Verified 05/28/21 16:34 General Stated Complaint: Abd Prob DMITRI: 3 Review of Systems Constitutional Constitutional: Denies fatigue, Denies fever(s) and Denies weakness ENT Ears, Nose, Mouth, and Throat: Denies neck pain Cardiovascular Cardiovascular: Denies chest pain and Denies dyspnea Respiratory Respiratory: Reports cough and Denies dyspnea Gastrointestinal Gastrointestinal: Reports abdominal pain, Reports nausea and Denies vomiting Genitourinary Genitourinary: Denies hematuria and Reports dysuria Musculoskeletal Musculoskeletal: Denies back pain and Denies neck pain Integumentary/Breasts Skin/Breast: Denies rash Neurologic Neurologic: Denies weakness Endocrine Endocrine: Denies fatigue PFSH All Active Problems UTI (urinary tract infection) (Acute) Chronic abdominal pain (Acute) Vomiting (Acute) Alcohol intoxication (Acute) Chronic abdominal pain (Acute) Acute on chronic pancreatitis (Acute) GERD (gastroesophageal reflux disease) (Chronic) Abdominal pain (Acute) Alcohol abuse (Chronic) Pancreatitis (Chronic) Chronic abdominal pain (Chronic) Alcohol use disorder (Acute) Chronic alcoholic pancreatitis (Acute) Dilated cbd, acquired (Acute) Constipation (Acute) HTN (hypertension) (Chronic) Chronic pancreatitis (Acute) Hypomagnesemia (Acute) Hypokalemia (Acute) Pancreatic mass (Acute) Chronic anticoagulation (Acute) Alcoholism, chronic (Chronic) Alcoholic gastritis (Acute) Abdominal pain (Acute) Nonadherence to medication (Acute) Common bile duct dilation (Acute) Deep vein thrombosis (DVT) of right upper extremity (Chronic) Medical History Acute UTI Alcohol withdrawal Alcoholism /alcohol abuse ARDS (adult respiratory distress syndrome) Aspiration pneumonia Chronic pain COVID-19 ruled out by laboratory testing Enterocolitis Fever Ground glass opacity present on imaging of lung Hiccups Hx of hyperlipidemia Hypokalemia Hypomagnesemia Insomnia Myocardial infarction x 2 Pancreatitis Pancreatitis, chronic Pneumonia Presence of pancreatic duct stent (~01/2018) Sean Sears Retention of urine Septal myocardial infarction (01/18/20) probably old, [facility] records Surgical History S/P ERCP (~01/2018) Sean Sears Family History Mother Alcohol abuse Father Alcohol abuse Social History Smoking/Tobacco Use Status: Current every day Tobacco Type: cigarettes Smoking packs per day: 1 Smoking cigarettes per day: 20.0 Smoking risk assessment performed?: Yes Alcohol Intake: current Alcohol Intake frequency: 3 or more drinks per day Alcohol type: beer Drug use: Daily Substance use type: marijuana Housing: apartment Do you feel safe at home: Yes Do you feel safe in your relationship?: Yes Exam Const General: cooperative, healthy appearing, comfortable and no acute distress Orientation: alert and awake [facility] Head: normal to inspection, normocephalic and atraumatic Face and sinus: normal facial exam Mouth: moist mucous membranes Eyes General: appearance normal, both eyes and all related structures Conjunctivae: conjunctivae normal Neck Neck: normal visual inspection, full ROM, trachea midline and supple Resp Effort & Inspection: normal respiratory effort and able to speak in complete sentences Auscultation: diminished lung sounds bilaterally in the lower lung ryan Cardio Rate: regular rate Rhythm: regular rhythm GI Inspection: normal to inspection Palpation: soft, not firm, no guarding, no pulsatile masses and tender in the epigastrum and in the LUQ; Negative for with no rebound tenderness Auscultation: normal bowel sounds Back/Spine/Pelvis Back: No back tenderness Skin General skin exam: no rashes or lesions noted Neuro General: patient alert, patient awake, patient oriented x3, moves all extremities and no focal motor deficits Cognition: normal cognition Speech: speech normal Gait: normal gait Sensory Exam: no sensory deficits noted Psych Appearance: grossly normal Mental Status: mental status grossly normal Course Vital Signs Vital signs: Vital Signs Temperature 36.4 C L 05/28/21 16:29 Pulse 96 H 05/28/21 16:29 Respiratory Rate 16 05/28/21 16:29 Blood Pressure 92/65 L 05/28/21 16:29 Pulse Oximetry 98 05/28/21 16:29 Temperature 36.4 C L 05/28/21 16:29 Temperature Source Tympanic 05/28/21 16:29 Pulse 96 H 05/28/21 16:29 Respiratory Rate 16 05/28/21 16:29 Respiratory Effort 05/28/21 16:37 Blood Pressure 92/65 L 05/28/21 16:29 Blood Pressure Position Sitting 05/28/21 16:29 Pulse Oximetry 98 05/28/21 16:29 Oxygen Delivery Method Room Air 05/28/21 16:29 Oxygen Flow Rate 0 05/28/21 16:29 Pain Level 10 05/28/21 16:29 PAWSS Have you Been Recently Intoxicated or Drunk Within the Last 30 days?: Yes Have you Ever Experienced Previous Episodes of Alcohol Withdrawal?: No Have you ever Experienced Withdrawal Seizures?: No Have you ever Experienced Delirium Tremens(DT)s?: No Have you ever undergone Alcohol Rehabilitation Treatment (i.e, inpt ot outpatient treatment programs)?: Yes Have you ever Experienced Blackouts?: No Have you ever Combined Alcohol with other Downers within the last 90 days?: No Have you ever Combined Alcohol with any other Substance of Abuse during the last 90 days?: No Evidence of Increased Autonomic Activity (i.e. HR>120, tremor, sweating, agitation, nausea)?: No Result: 2
[2021-05-28] MEDS: Normal Saline 1,000 ML 1000 ML IV (17:32)
[2021-05-28 17:35] LABS: COVID-19 PCR Negative (Negative); Source Nasal/Nares
[2021-05-28 17:36] LABS: Abs Immature Grans 0.01 10^3/uL (0.0-0.06); Absolute Basophil Count 0.04 10^3/uL (0.0-0.2); Absolute Eosinophil Count 0.05 10^3/uL (0.0-0.7); Absolute Lymphocyte Count 2.51 10^3/uL (1.2-3.4); Absolute Monocyte Count 0.72 10^3/uL (0.1-0.8); Absolute Neutrophil Count 1.94 10^3/uL (1.2-6.7); Basophils % 0.8; Eosinophils % 0.9; HCT 42.6 % (40.0-50.0); HGB 14.4 g/dL (13.5-17.5); Immature Grans % 0.2; Lymphocytes % 47.6; MCH 31.4 pg (27.0-33.0); MCHC 33.8 % (32.0-36.0); Monocytes % 13.7; Neutrophils % 36.8; Nucleated RBC 0 %; Platelet Count 160 10^3/uL (130-400); RBC 4.58 10^6/uL (4.36-5.78); RDW-SD 51.6 fL; WBC 5.27 10^3/uL (4.4-10.8)
--- NOTE | 2021-05-28 17:45 | RT.EKG_ITS ---
APPROVED REPORT Exam: Resting ECG Reason for Exam: Hypokalemia Patient Location: E HR:85 bpm ECG Measurements Heart Rate 85 AXIS MA 142 P -13 QRSd 92 QRS 76 QT 393 T 4 QTc 467 Conclusion Sinus rhythm...normal P axis, V-rate 60- 99 Low voltage, extremity leads...all extremity leads <0.5mV No stemi I have reviewed and interpreted ECG and agree with software generated interpretation.
[2021-05-28 17:47] LABS: ETHANOL BLOOD 229.9 mg/dL (<10)
[2021-05-28 17:52] LABS: ALT 34 U/L (16-63); AST 66 U/L (15-37); Albumin 3.5 g/dL (3.4-5.0); Alkaline Phosphatase 96 U/L (46-116); Anion Gap 15.8 mmol/L (3-11); BUN 7 mg/dL (7-18); Bilirubin, Total 0.8 mg/dL (0.2-1.0); CO2 21.2 mmol/L (21.0-32.0); CREATININE 0.7 mg/dL (0.70-1.30); Chloride 100 mmol/L (98-107); Glucose 96 mg/dL (74-106); Potassium 3.1 mmol/L (3.5-5.1); Sodium 137 mmol/L (136-145); Total Protein 7.8 g/dL (6.4-8.2)
[2021-05-28 18:01] LABS: Lipase 163 U/L (73-393)
[2021-05-28 18:03] LABS: Bilirubin Negative (Negative); Blood Trace-intact (Negative); Clarity Clear (Clear); Glucose Negative (Negative); Ketones Negative (Negative); Leukocyte Esterase Moderate (Negative); Nitrite Negative (Negative); Specific Gravity 1.015 (1.005-1.025); Urobilinogen 0.2 EU/dL (Up TO 0.2)
[2021-05-28] MEDS: Potassium Chloride 20 MEQ TABCR 40 MEQ PO (18:04)
[2021-05-28 18:10] LABS: Bacteria Moderate HPF (Negative); C & S Indicated? Yes; Casts Negative LPF (Negative); Crystals Negative HPF (Negative); Epithelial Cells Few HPF (Negative); Mucus Negative (Negative); RBC 0-2 HPF (0-2); WBC >50 HPF (0-5)
[2021-05-28 18:13] LABS: Magnesium 2.2 mg/dL (1.8-2.4)
[2021-05-28] MEDS: levoFLOXacin 250 MG TAB PO (18:35)
== END 2021-05-28 18:49 | disposition home or self-care (01) ==
PROVIDERS: Emergency Provider Physician Assistant; PCP Family Medicine
DX: R10.9 Unspecified abdominal pain (principal); G89.29 Other chronic pain; F10.20 Alcohol dependence, uncomplicated; E87.6 Hypokalemia; Z20.822 Contact with and (suspected) exposure to COVID-19; N39.0 Urinary tract infection, site not specified; B96.89 Other specified bacterial agents as the cause of diseases classified elsewhere; R05.1 Acute cough
CPT/HCPCS: 36415; 80053; 83690; 87635; 93005; 96360; 99284; 71045; 80320; 81003; 81015; 83735; 85025; 87086; 93010

== ENCOUNTER 2021-06-19 08:01 | Emergency (ER) | payer MEDICAID, SELFPAY ==
--- NOTE | 2021-06-19 08:00 | DI.RAD_ITS ---
Exam(s) XR PORTABLE CHEST AP EXAM: XR PORTABLE CHEST AP CLINICAL HISTORY: cough. TECHNIQUE: 2D digital imaging was performed. COMPARISON: CR,XR XR PORTABLE CHEST AP from 05/28/2021 FINDINGS: LUNGS: Clear. No pleural abnormality seen. HEART: Normal. MEDIASTINUM: Normal. OTHER FINDINGS: None. IMPRESSION: No acute pulmonary findings. DATA REPOSITORY: RADIATION DOSE DELIVERED: Total DLP
[2021-06-19 08:05] VITALS: BP 165/105; PULSE 113; RESP 18; TEMP 36.5; O2SAT 99
--- NOTE | 2021-06-19 08:32 | ED.GENADUL_ITS ---
Discharge Plan Disposition Patient Disposition: HOME Condition: Improving Discharge Details Clinical Impression: Bronchitis Primary Care Provider: Benjamin Bustillos ED Provider: Chan Manley Home Meds and New Rx's Prescriptions: New azithromycin 250 mg tablet See Rx Instructions .ROUTE .COMPLEX Qty: 6 0RF Rx Instructions: For 250 mg dose pack: take 500 mg today (day 1), then 250 mg for 4 days (days 2-5) hydromorphone [Dilaudid] 2 mg tablet 2 mg PO Q6H PRNQty: 5 0RF Continued omeprazole 40 mg capsule,delayed release(DR/EC) 40 mg PO DAILY Qty: 90 3RF folic acid 1 mg tablet 1 mg PO DAILY 0RF multivitamin Tablet 1 tab PO DAILY 0RF thiamine HCl (vitamin B1) 100 mg tablet 100 mg PO DAILY 0RF magnesium oxide 400 mg magnesium tablet 400 mg PO DAILY 0RF sucralfate [Carafate] 1 gram tablet 1 g PO BID Qty: 60 0RF tamsulosin [Flomax] 0.4 mg capsule 0.4 mg PO DAILY Qty: 30 0RF Discontinued oxycodone 30 mg Tablet 30 mg PO TID 0RF Discharge Instructions Instructions: Acute Bronchitis (ED) Additional Instructions: Take antibiotics as prescribed until finished. First dose will be 2 pills, then 1 pill daily until gone. He has hot steam shower will help to to attenuate your cough. For persistent coughing fits or pain you may use the provided Dilaudid sparingly. No alcohol or driving while using this medication. Return to the emergency department for any acute concerns Medical Decision Making 61-year-old male presents from home via EMS. He has a history of chronic alcoholism, chronic pancreatitis, now states he developed coughing fits overnight and has produced clear sputum with flecks of blood. Not had leg pain or swelling. He denies chest pain. He states he has chronic abdominal pain and well and has been unable to eat, has been able to drink beer daily, stating he feels makes his abdominal pain feel better. No bloody stools. He lives with a roommate, he is unsure if they have been sick. He arrives to ER hypertensive, with paroxysms of cough, he is slightly tachycardic on triage but afebrile and oxygenating normally. A stat portable chest x-ray was obtained which shows no acute process. The patient's laboratories otherwise will note a white count of 6, hematocrit 41, platelets 250. Chemistries with sodium 146, potassium 4.3, chloride 110, BUN 3, creatinine 0.7. LFTs unremarkable, lipase within normal limits. Patient tested negative for SARS-CoV-2, flu A and B, RSV. He was able to tolerate a small meal. His cough attenuated. He is at risk for aspiration pneumonitis as well as bronchitis. We will treat with a course of antibiotics. He will be given a small number of narcotic analgesics to be used as antitussives and for pain control, for which she was consented prior to discharge HPI General Mode of arrival: EMS . Date/Time Provider Initiated Documentation: 06/19/21 08:03 . Limitations to Documentation: no limitations . Information obtained by: patient and EMS . History of Present Illness 61 year old M presents to the emergency department with the chief complaint of 61-year-old male presents via EMS with cough, persistent, described as moderate, Quality is described as constant, and is localized to the chest. Patient reports no radiation. Patient started experiencing this hour(s) and it has been constant. improves with No relieving factors improve symptom(s), No exacerbating factors reported . Patient notes cough and other (Chronic abdominal pain, unchanged); denies fever/chills, nausea/vomiting and shortness of breath. Patient did receive the following treatments prior to arrival, none Related Data Home Medications Medication Instructions Recorded Confirmed omeprazole 40 mg capsule,delayed 40 mg PO DAILY #90 cap 10/04/20 06/19/21 release sucralfate 1 gram tablet (Carafate) 1 g PO BID #60 tab 12/27/20 06/19/21 tamsulosin 0.4 mg capsule (Flomax) 0.4 mg PO DAILY #30 cap 03/09/21 06/19/21 folic acid 1 mg tablet 1 mg PO DAILY 06/16/21 06/19/21 magnesium oxide 400 mg PO DAILY 06/16/21 06/19/21 multivitamin 1 tab PO DAILY 06/16/21 06/19/21 thiamine HCl (vitamin B1) 100 mg 100 mg PO DAILY 06/16/21 06/19/21 tablet azithromycin 250 mg tablet See Rx Instructions .ROUTE 06/19/21 .COMPLEX #6 tab hydromorphone 2 mg tablet 2 mg PO Q6H PRN #5 tab 06/19/21 (Dilaudid) Previous Rx's Medication Instructions Recorded omeprazole 40 mg capsule,delayed 40 mg PO DAILY #90 cap 10/04/20 release sucralfate 1 gram tablet (Carafate) 1 g PO BID #60 tab 12/27/20 tamsulosin 0.4 mg capsule (Flomax) 0.4 mg PO DAILY #30 cap 03/09/21 azithromycin 250 mg tablet See Rx Instructions .ROUTE 06/19/21 .COMPLEX #6 tab hydromorphone 2 mg tablet 2 mg PO Q6H PRN #5 tab 06/19/21 (Dilaudid) Allergies Allergy/AdvReac Type Severity Reaction Status Date / Time Penicillins Allergy Verified 06/19/21 08:08 General Stated Complaint: RespSymp DMITRI: 3 Review of Systems Narrative: Poor p.o. intake for 4 days but has been able to tolerate beer. States to me it makes his chronic abdominal pain feel better. Developed cough overnight with flecks of blood. No leg pain or swelling. No known sick contacts. 8 systems were reviewed, see HPI PFSH All Active Problems (Updated 06/19/21 @ 11:34 by Chan Manley MD) Bronchitis (Acute) Bipolar disorder, unspecified (Acute) Major depressive disorder, recurrent, unspecified (Acute) Tobacco use disorder, severe, dependence (Acute) Cocaine use disorder, severe, dependence (Acute) Cannabis use disorder, severe, dependence (Acute) Alcohol use disorder, severe, dependence (Acute) UTI (urinary tract infection) (Acute) Vomiting (Acute) Alcohol intoxication (Acute) Acute on chronic pancreatitis (Acute) GERD (gastroesophageal reflux disease) (Chronic) Abdominal pain (Acute) Pancreatitis (Chronic) Chronic abdominal pain (Chronic) Chronic alcoholic pancreatitis (Acute) Dilated cbd, acquired (Acute) Constipation (Acute) HTN (hypertension) (Chronic) Hypomagnesemia (Acute) Hypokalemia (Acute) Pancreatic mass (Acute) Chronic anticoagulation (Acute) Alcoholism, chronic (Chronic) Alcoholic gastritis (Acute) Nonadherence to medication (Acute) Common bile duct dilation (Acute) Deep vein thrombosis (DVT) of right upper extremity (Chronic) Medical History Acute UTI Alcohol withdrawal Alcoholism /alcohol abuse ARDS (adult respiratory distress syndrome) Aspiration pneumonia Chronic pain COVID-19 ruled out by laboratory testing Enterocolitis Fever Ground glass opacity present on imaging of lung Hiccups Hx of hyperlipidemia Hypokalemia Hypomagnesemia Insomnia Myocardial infarction x 2 Pancreatitis Pancreatitis, chronic Pneumonia Presence of pancreatic duct stent (~01/2018) [facility] Retention of urine Septal myocardial infarction (01/18/20) probably old, [facility] records Surgical History S/P ERCP (~01/2018) [facility] Family History Mother Alcohol abuse Father Alcohol abuse Social History Smoking/Tobacco Use Status: Current every day Tobacco Type: cigarettes Smoking packs per day: 1 Smoking cigarettes per day: 20.0 Smoking risk assessment performed?: Yes Alcohol Intake: current Alcohol Intake frequency: 3 or more drinks per day Alcohol type: beer Drug use: Daily Substance use type: marijuana Housing: apartment Do you feel safe at home: Yes Do you feel safe in your relationship?: Yes Exam Narrative Exam Narrative: GEN: awake, alert, oriented 3. Interactive, mildly irritated/agitated HEAD: Normocephalic, atraumatic ENT: Mucous membranes moist, oropharynx unremarkable, External ear exam unremarkable EYES: PERRL, EOMI NECK: Full ROM, no PAULINA, no menigismus CHEST/RESP: Nontender, fits of coughing spasm, no significant wheezing and no rhonchi appreciated. CARDIOVASCULAR: RRR, no murmur, rub dave. 2+ Rad pulse bilateral ABDOMEN: Soft, nontender, no mass. +Bowel sounds EXT: Full ROM, no edema, no rash Neuro: Grossly normal neurologic exam, conversant, interactive. Psych: Speech fluent, thoughts congruent, affect normal Course Vital Signs Vital signs: Vital Signs Temperature 36.5 C 06/19/21 08:05 Pulse 113 H 06/19/21 08:05 Respiratory Rate 18 06/19/21 08:05 Blood Pressure 165/105 H 06/19/21 08:05 Pulse Oximetry 99 06/19/21 08:05 Temperature 36.5 C 06/19/21 08:05 Temperature Source Temporal Artery Scan 06/19/21 08:05 Pulse 113 H 06/19/21 08:05 Respiratory Rate 18 06/19/21 08:05 Respiratory Effort Non-Labored 06/19/21 08:10 Respiratory Depth Normal 06/19/21 08:10 Blood Pressure 165/105 H 06/19/21 08:05 Blood Pressure Position Sitting 06/19/21 08:05 Pulse Oximetry 99 06/19/21 08:05 Oxygen Delivery Method Room Air 06/19/21 08:05 Oxygen Flow Rate 0 06/19/21 08:05 PAWSS Have you Been Recently Intoxicated or Drunk Within the Last 30 days?: Yes Have you Ever Experienced Previous Episodes of Alcohol Withdrawal?: Yes Have you ever Experienced Withdrawal Seizures?: Yes Have you ever Experienced Delirium Tremens(DT)s?: Yes Have you ever undergone Alcohol Rehabilitation Treatment (i.e, inpt ot outpatient treatment programs)?: Yes Have you ever Experienced Blackouts?: Yes Have you ever Combined Alcohol with other Downers within the last 90 days?: Yes Have you ever Combined Alcohol with any other Substance of Abuse during the last 90 days?: Yes Positive Blood Alcohol level on Presentation? [PCS.BAL]: Yes Evidence of Increased Autonomic Activity (i.e. HR>120, tremor, sweating, agitation, nausea)?: No Result: 9
[2021-06-19] MEDS: Normal Saline 1,000 ML 1000 ML IV (09:51)
[2021-06-19] MEDS: MORPHine 10 MG/ML VIAL 6 MG IVP (10:00)
[2021-06-19 10:01] LABS: Abs Immature Grans 0.03 10^3/uL (0.0-0.06); Absolute Basophil Count 0.06 10^3/uL (0.0-0.2); Absolute Eosinophil Count 0.05 10^3/uL (0.0-0.7); Absolute Lymphocyte Count 1.57 10^3/uL (1.2-3.4); Absolute Monocyte Count 0.47 10^3/uL (0.1-0.8); Absolute Neutrophil Count 4.12 10^3/uL (1.2-6.7); Eosinophils % 0.8; HGB 13.5 g/dL (13.5-17.5); Immature Grans % 0.5; Lymphocytes % 24.9; MCH 31.1 pg (27.0-33.0); MCHC 32.9 % (32.0-36.0); MCV 94.5 fL (80-95); MPV 9.3 fL (8.0-11.0); Monocytes % 7.5; Neutrophils % 65.3; Platelet Count 250 10^3/uL (130-400); RBC 4.34 10^6/uL (4.36-5.78); RDW 14.6 % (11.8-14.1); RDW-SD 51.1 fL
[2021-06-19 10:09] LABS: ALT 33 U/L (16-63); AST 35 U/L (15-37); Albumin 3.2 g/dL (3.4-5.0); Alkaline Phosphatase 106 U/L (46-116); Anion Gap 11.2 mmol/L (3-11); BUN 3 mg/dL (7-18); Bilirubin, Total 0.3 mg/dL (0.2-1.0); CO2 24.8 mmol/L (21.0-32.0); CREATININE 0.7 mg/dL (0.70-1.30); Calcium 8.1 mg/dL (8.5-10.1); Chloride 110 mmol/L (98-107); ETHANOL BLOOD 195.2 mg/dL (<10); Glucose 69 mg/dL (74-106); Potassium 4.3 mmol/L (3.5-5.1); Sodium 146 mmol/L (136-145); Total Protein 7.3 g/dL (6.4-8.2)
[2021-06-19] MEDS: Normal Saline 50 ML (10:13)
[2021-06-19] MEDS: Ondansetron 4 MG/2 ML VIAL IVP (10:13)
[2021-06-19] MEDS: Pantoprazole 40 MG VIAL IVP (10:13)
[2021-06-19 10:24] VITALS: BP 152/132; PULSE 93; TEMP 37; O2SAT 97
[2021-06-19 10:33] VITALS: BP 173/94; RESP 16; O2SAT 96
[2021-06-19 10:57] LABS: Lipase 106 U/L (73-393)
[2021-06-19 11:03] LABS: COVID-19 PCR Negative (Negative); Influenza A PCR Negative (Negative); Influenza B PCR Negative (Negative); RSV PCR Negative (Negative)
[2021-06-19 11:05] LABS: Source Nasopharynx
[2021-06-19 11:51] VITALS: BP 191/87; PULSE 90; RESP 18; TEMP 36.6; O2SAT 98
== END 2021-06-19 15:59 | disposition home or self-care (01) ==
LOC: ER 15:59
PROVIDERS: Emergency Provider Emergency Medicine; PCP Family Medicine
DX: J20.9 Acute bronchitis, unspecified (principal); Z20.822 Contact with and (suspected) exposure to COVID-19
CPT/HCPCS: 36415; 80053; 83690; 87637; 96361; 96374; 96375; 99284; 71045; 80320; 85025; J2270; J2405

== ENCOUNTER 2021-07-15 21:51 | Emergency (ER) | payer MEDICAID, SELFPAY ==
[2021-07-15] VITALS (16 sets, daily range): BP systolic 111–142; BP diastolic 68–89; PULSE 88–98; RESP 15–23; TEMP 36.6; O2SAT 96–99
--- NOTE | 2021-07-15 22:15 | RT.EKG_ITS ---
APPROVED REPORT Exam: Resting ECG Reason for Exam: epigastric pain Patient Location: E HR:102 bpm ECG Measurements Heart Rate 102 AXIS TN 174 P 59 QRSd 75 QRS -7 QT 363 T 28 QTc 473 Conclusion Sinus tachycardia...rate> 99 Low voltage, extremity and precordial leads...extremity<0.5mV, precordial<1.0mV Physician: Rate 102, sinus tachycardia, no significant ST elevation or depression. Single inverted T wave in V1 . No other significant abnormalities. No change from prior EKG on 05/28/2021
--- NOTE | 2021-07-15 22:35 | DI.CT_ITS ---
Exam(s) CT CHEST/ABD/PEL WO EXAM: CT CHEST/ABD/PEL WO CLINICAL HISTORY: fall, hx of pancreatitis, epigastric and LUq pain, TECHNIQUE: Imaging Protocol: Axial computed tomography images with coronal and sagittal reformatted images were created and reviewed COMPARISON: CT CT CHEST/ABD/PEL W from 04/18/[address] ABDOMEN PELVIS W from 05/16/2021 FINDINGS: The examination is limited due to patient motion artifact. CHEST: Tracheobronchial tree: Patent where visualized. Pulmonary parenchyma: There is a stable 5 mm nodule in the right upper lobe, unchanged for 2 years. No follow-up is recommended. There is a stable nodule in the left lower lobe. No follow-up is recom mended. No focal consolidating infiltrates are seen. Dependent atelectatic changes are seen in the l carol bases. Mediastinum and Caroline: No dominant adenopathy or fluid collection. The esophagus is unremarkable. Ther e are calcified lymph nodes in the mediastinum consistent with prior granulomatous disease. Thyroid gland: Unremarkable. Pleura: No effusion or pneumothorax. Heart: The heart is not dilated. Coronary artery calcifications are present. No pericardial effusion . Aorta: Thoracic aorta non-dilated. Atherosclerosis is present Lymph nodes: Within normal limits. Bones:Within normal limits for the patient's age. Soft tissues: Unremarkable. ABDOMEN: Liver: Normal density. No measurable mass. Gallbladder and Biliary Tract: There is diffuse thickening of the wall of the gallbladder. No stones or biliary ductal dilatation is seen. Pancreas: Pancreatic calcifications are present suggestive of chronic pancreatitis. There is stable d ilatation of the pancreatic duct. No peripancreatic inflammation or fluid collection is seen. Spleen: Normal. Adrenals: No masses seen. Kidneys: Normal size, contour and axis. No radiodense stones or obstructive uropathy. No masses seen. Abdominal Aorta: Abdominal portion non-dilated. Atherosclerosis. Bowel: No obstruction or bowel wall thickening. Appendix is unremarkable. There is diverticulosis see n in the sigmoid colon, but no evidence of acute diverticulitis. Peritoneal Cavity: No ascites, collection or mesenteric inflammatory response. No free air. Lymph Nodes: Within normal limits. Bones: Within normal limits for the patient's age. Soft Tissues: Unremarkable. PELVIS: Bladder: Symmetric distention, no gross wall thickening. Reproductive Organs: Unremarkable as visualized. Lymph Nodes: Within normal limits. Bones: Within normal limits for the patient's age. IMPRESSION: 1. No acute abnormality seen in the chest. 2. No acute abdominal or pelvic process. 3. Findings of chronic pancreatitis. RADIATION DOSE DELIVERED: 949.63mGy.cm Total DLP 949.63mGy.cm Total DLP DATA REPOSITORY: All CT scans at this facility are submitted to the National Radiology Data Registry (NRDR) Dose Index Registry (DIR) with the [employer] (ACR). RADIATION OPTIMIZATION: All CT scans at this facility use at least one of these dose optimization te chniques: automated exposure control; mA and/or kV adjustment per patient size (includes targeted exa ms where dose is matched to clinical indication); or iterative reconstruction.
[2021-07-15] MEDS: Normal Saline 1,000 ML 1000 ML IV (22:48)
--- NOTE | 2021-07-15 22:48 | W.ED.GENAD ---
Discharge Plan Disposition Patient Disposition: HOME Condition: Stable Discharge Details Clinical Impression: Alcoholism, chronic Primary Care Provider: Benjamin Bustillos ED Provider: Kinza Marrero Home Meds and New Rx's Prescriptions: Continued omeprazole 40 mg capsule,delayed release(DR/EC) 40 mg PO DAILY Qty: 90 3RF folic acid 1 mg tablet 1 mg PO DAILY multivitamin Tablet 1 tab PO DAILY thiamine HCl (vitamin B1) 100 mg tablet 100 mg PO DAILY magnesium oxide 400 mg magnesium tablet 400 mg PO DAILY sucralfate [Carafate] 1 gram tablet 1 g PO BID Qty: 60 0RF tamsulosin [Flomax] 0.4 mg capsule 0.4 mg PO DAILY Qty: 30 0RF azithromycin 250 mg tablet See Rx Instructions .ROUTE .COMPLEX Qty: 6 0RF Rx Instructions: For 250 mg dose pack: take 500 mg today (day 1), then 250 mg for 4 days (days 2-5) hydromorphone [Dilaudid] 2 mg tablet 2 mg PO Q6H PRNQty: 5 0RF Discharge Instructions Additional Instructions: Take Maalox as needed for pain Cut down on your alcohol consumption by 1 drink daily until you are able to stop completely Do not stop drinking abruptly as this could harm you Follow-up with your PCP Likely the cause of your pain is related to your alcohol consumption Please return earlier should you have new or worsening complaints Referrals: Benjamin Bustillos DO [Primary Care Provider] - Discharge Data Discharge Date/Time-TO BE ENTERED AT DEPARTURE: 07/16/21 00:[address] does not show evidence of acute abnormality per virtual radiology interpretation Patient is known to the facility and does not have any evidence of acute abnormality We had a long discussion about alcohol cessation that is likely precipitating his symptoms He is referred back to his primary care physician He was given a dose of Mylanta and Toradol prior to dispo He is encouraged to follow-up regarding his CT with his primary care physician and to return earlier should he have any worsening complaints HPI General Date/Time Provider Initiated Documentation: 07/15/21 22:24. HPI Narrative: This 61-year-old gentleman known to this hospital for recurrent visits with abdominal pain, alcohol intoxication, alcohol abuse presents with report of epigastric pain which is an acute exacerbation of patient's chronic pain. He did have 4 beers tonight prior to arrival. He denies any vomiting. He feels nauseous reportedly. Patient reports chest pain on the left side as he thinks he broke her ribs from a fall yesterday. He denies any additional complaints at this time. He denies any fever or chills. Related Data Home Medications Medication Instructions Recorded Confirmed omeprazole 40 mg capsule,delayed 40 mg PO DAILY #90 caps 10/04/20 06/19/21 release sucralfate 1 gram tablet (Carafate) 1 g PO BID #60 tabs 12/27/20 06/19/21 tamsulosin 0.4 mg capsule (Flomax) 0.4 mg PO DAILY #30 caps 03/09/21 06/19/21 folic acid 1 mg tablet 1 mg PO DAILY 06/16/21 06/19/21 magnesium oxide 400 mg PO DAILY 06/16/21 06/19/21 multivitamin 1 tab PO DAILY 06/16/21 06/19/21 thiamine HCl (vitamin B1) 100 mg 100 mg PO DAILY 06/16/21 06/19/21 tablet azithromycin 250 mg tablet See Rx Instructions PO .COMPLEX #6 06/19/21 tabs hydromorphone 2 mg tablet 2 mg PO Q6H PRN #5 tabs 06/19/21 (Dilaudid) Previous Rx's Medication Instructions Recorded omeprazole 40 mg capsule,delayed 40 mg PO DAILY #90 caps 10/04/20 release sucralfate 1 gram tablet (Carafate) 1 g PO BID #60 tabs 12/27/20 tamsulosin 0.4 mg capsule (Flomax) 0.4 mg PO DAILY #30 caps 03/09/21 azithromycin 250 mg tablet See Rx Instructions PO .COMPLEX #6 06/19/21 tabs hydromorphone 2 mg tablet 2 mg PO Q6H PRN #5 tabs 06/19/21 (Dilaudid) Allergies Allergy/AdvReac Type Severity Reaction Status Date / Time Penicillins Allergy Verified 07/15/21 21:58 General Stated Complaint: Abd Prob DMITRI: 3 Review of Systems All systems reviewed & are unremarkable except as noted in HPI and below PFSH All Active Problems (Updated 07/16/21 @ 00:05 by ALCIRA TAVERAS) Bronchitis (Acute) Bipolar disorder, unspecified (Acute) Major depressive disorder, recurrent, unspecified (Acute) Tobacco use disorder, severe, dependence (Acute) Cocaine use disorder, severe, dependence (Acute) Cannabis use disorder, severe, dependence (Acute) Alcohol use disorder, severe, dependence (Acute) UTI (urinary tract infection) (Acute) Vomiting (Acute) Alcohol intoxication (Acute) Acute on chronic pancreatitis (Acute) GERD (gastroesophageal reflux disease) (Chronic) Abdominal pain (Acute) Pancreatitis (Chronic) Chronic abdominal pain (Chronic) Chronic alcoholic pancreatitis (Acute) Dilated cbd, acquired (Acute) Constipation (Acute) HTN (hypertension) (Chronic) Hypomagnesemia (Acute) Hypokalemia (Acute) Pancreatic mass (Acute) Chronic anticoagulation (Acute) Alcoholism, chronic (Chronic) Alcoholic gastritis (Acute) Nonadherence to medication (Acute) Common bile duct dilation (Acute) Deep vein thrombosis (DVT) of right upper extremity (Chronic) Medical History Acute UTI Alcohol withdrawal Alcoholism /alcohol abuse ARDS (adult respiratory distress syndrome) Aspiration pneumonia Chronic pain COVID-19 ruled out by laboratory testing Enterocolitis Fever Ground glass opacity present on imaging of lung Hiccups Hx of hyperlipidemia Hypokalemia Hypomagnesemia Insomnia Myocardial infarction x 2 Pancreatitis Pancreatitis, chronic Pneumonia Presence of pancreatic duct stent (~01/2018) [facility] Retention of urine Septal myocardial infarction (01/18/20) probably old, [facility] Surgical History S/P ERCP (~01/2018) [facility] Family History Mother Alcohol abuse Father Alcohol abuse Social History Smoking/Tobacco Use Status: Current every day Tobacco Type: cigarettes Smoking packs per day: 1 Smoking cigarettes per day: 20.0 Smoking risk assessment performed?: Yes Alcohol Intake: current Alcohol Intake frequency: 3 or more drinks per day Alcohol type: beer Drug use: Daily Substance use type: marijuana Housing: apartment Do you feel safe at home: Yes Do you feel safe in your relationship?: Yes Exam Const General: cooperative and no acute distress Eyes Pupils: PERRL Resp Effort & Inspection: normal respiratory effort Auscultation: clear to auscultation bilaterally Cardio Rate: regular rate Rhythm: regular rhythm GI Other: Abdominal tenderness on exam, diffuse, left upper chest wall pain, small bruise noted to left lower quadrant No CVA tenderness Skin General skin exam: no rashes or lesions noted Neuro General: patient alert and patient oriented x3 Extrem Other: Distal pulses intact Course Vital Signs Vital signs: Vital Signs Temperature 36.6 C 07/15/21 21:52 Pulse 90 07/15/21 21:52 Respiratory Rate 18 07/15/21 21:52 Blood Pressure 142/89 H 07/15/21 21:52 Pulse Oximetry 99 07/15/21 21:52 Temperature 36.6 C 07/15/21 21:52 Temperature Source Skin 07/15/21 21:52 Pulse 90 07/15/21 21:52 Respiratory Rate 18 07/15/21 21:52 Respiratory Effort 07/15/21 21:55 Blood Pressure 142/89 H 07/15/21 21:52 Blood Pressure Position Sitting 07/15/21 21:52 Pulse Oximetry 99 07/15/21 21:52 Oxygen Delivery Method Room Air 07/15/21 21:52 Oxygen Flow Rate 0 07/15/21 21:52 Pain Level 10 07/15/21 21:52 PAWSS Have you Been Recently Intoxicated or Drunk Within the Last 30 days?: Yes Have you Ever Experienced Previous Episodes of Alcohol Withdrawal?: Yes Have you ever Experienced Withdrawal Seizures?: Yes Have you ever Experienced Delirium Tremens(DT)s?: Yes Have you ever undergone Alcohol Rehabilitation Treatment (i.e, inpt ot outpatient treatment programs)?: Yes Have you ever Experienced Blackouts?: Yes Have you ever Combined Alcohol with other Downers within the last 90 days?: No Have you ever Combined Alcohol with any other Substance of Abuse during the last 90 days?: No Evidence of Increased Autonomic Activity (i.e. HR>120, tremor, sweating, agitation, nausea)?: No Result: 6
[2021-07-15 23:10] LABS: Abs Immature Grans 0.01 10^3/uL (0.0-0.06); Absolute Basophil Count 0.03 10^3/uL (0.0-0.2); Absolute Eosinophil Count 0.07 10^3/uL (0.0-0.7); Absolute Lymphocyte Count 2.63 10^3/uL (1.2-3.4); Absolute Monocyte Count 0.47 10^3/uL (0.1-0.8); Absolute Neutrophil Count 1.92 10^3/uL (1.2-6.7); Basophils % 0.6; Eosinophils % 1.4; HCT 36.5 % (40.0-50.0); HGB 12.1 g/dL (13.5-17.5); Immature Grans % 0.2; Lymphocytes % 51.3; MCH 31.3 pg (27.0-33.0); MCHC 33.2 % (32.0-36.0); MCV 95 fL (80-95); MPV 9.5 fL (8.0-11.0); Monocytes % 9.2; Neutrophils % 37.3; Platelet Count 233 10^3/uL (130-400); RBC 3.86 10^6/uL (4.36-5.78); RDW 15.4 % (11.8-14.1); WBC 5.13 10^3/uL (4.4-10.8)
--- NOTE | 2021-07-15 23:11 | DI.VRAD_ITS ---
PROCEDURE INFORMATION: Exam: CT Chest Without Contrast; Diagnostic Exam date and time: 07/15/2021 10:32 PM Age: 61 years old Clinical indication: Injury or trauma; Sprain or strain; Patient HX: S/P fall, HX of pancreatitis, epigastricand luq pain TECHNIQUE: Imaging protocol: Diagnostic computed tomography of the chest without contrast. Radiation optimization: All CT scans at this facility use at least one of these dose optimization techniques: automated exposure control; mA and/or kV adjustment per patient size (includes targeted exams where dose is matched to clinical indication); or iterative reconstruction. COMPARISON: CT CHEST/ABD/PEL W 06/17/2020 10:28 PM FINDINGS: Lungs: Dependent atelectasis and/or edema noted. No consolidation. No specific contusion. Pleural spaces: Unremarkable. No pneumothorax. No pleural effusion. Heart: No cardiomegaly. No pericardial effusion. Severe coronary artery calcifications. Lymph nodes: Calcified mediastinal and right hilar lymph nodes are noted, benign. Vasculature: Negative for thoracic aortic aneurysm. Moderate calcified plaque. Bones/joints: Negative for compression fracture. Ribs and sternum are intact. Mild degenerative changes are noted in the thoracic spine. Neural foraminal narrowing noted at T2-T3 bilaterally. Soft tissues: Negative for soft tissue air or hematoma in the chest wall. IMPRESSION: Negative for acute traumatic injury in the chest. PROCEDURE INFORMATION: Exam: CT Abdomen And Pelvis Without Contrast Exam date and time: 07/15/2021 10:32 PM Age: 61 years old Clinical indication: Injury or trauma; Sprain or strain; Patient HX: S/P fall, HX of pancreatitis, epigastricand luq pain TECHNIQUE: Imaging protocol: Computed tomography of the abdomen and pelvis without contrast. Radiation optimization: All CT scans at this facility use at least one of these dose optimization techniques: automated exposure control; mA and/or kV adjustment per patient size (includes targeted exams where dose is matched to clinical indication); or iterative reconstruction. COMPARISON: CT ABDOMEN PELVIS W 05/16/2021 8:35 PM FINDINGS: Lungs: Please see CT chest dictated separately. Liver: Normal. No mass. Gallbladder and bile ducts: Collapsed gallbladder. No calcified stones. Pancreas: Pancreatic calcifications noted. Pancreatic duct is dilated, up to 8 mm. Limited evaluation without contrast. No fat stranding observed around the pancreas. No fluid collections observed around the pancreas. Spleen: Normal. No splenomegaly. Adrenal glands: Normal adrenal glands. Kidneys and ureters: No hydronephrosis. No laceration or perinephric hematoma. Nonobstructive 2 mm stone noted at the inferior left kidney. Nondilated ureters. Stomach and bowel: Unremarkable stomach. Nondilated small bowel. Moderate fluid noted throughout the small bowel. Negative for inflammatory changes around the colon. Descending and sigmoid colon diverticulosis noted. Appendix: No evidence of appendicitis. Intraperitoneal space: Unremarkable. No free air. No significant fluid collection. Vasculature: Negative for abdominal aortic aneurysm. Moderate-severe vascular calcifications are present. Lymph nodes: Unremarkable. No enlarged lymph nodes. Urinary bladder: Unremarkable as visualized. Reproductive: Unremarkable as visualized. Bones/joints: Negative for compression fracture. Multilevel degenerative disc disease and facet arthropathy noted. Neural foraminal narrowing particularly noted at L4-L5. Soft tissues: Unremarkable. IMPRESSION: 1. Negative for acute traumatic injury in the abdomen or pelvis. 2. Moderate-severe vascular disease. Sites of iliac and femoral artery stenosis are likely. 3. Chronic pancreatitis. Dictated and Authenticated by: Brett Armenta MD. Ordering:PATRICIA Echols MD
[2021-07-15 23:20] LABS: ALT 17 U/L (16-63); AST 22 U/L (15-37); Albumin 2.8 g/dL (3.4-5.0); Alkaline Phosphatase 81 U/L (46-116); Anion Gap 7.6 mmol/L (3-11); BUN 6 mg/dL (7-18); Bilirubin, Total 0.2 mg/dL (0.2-1.0); CO2 25.4 mmol/L (21.0-32.0); CREATININE 0.6 mg/dL (0.70-1.30); Chloride 112 mmol/L (98-107); Glucose 100 mg/dL (74-106); Lipase 149 U/L (73-393); Potassium 3.5 mmol/L (3.5-5.1); Sodium 145 mmol/L (136-145); Total Protein 6.6 g/dL (6.4-8.2)
[2021-07-15 23:38] LABS: Bilirubin Negative (Negative); Blood Negative (Negative); Clarity Clear (Clear); Glucose Negative (Negative); Ketones Negative (Negative); Leukocyte Esterase Negative (Negative); Nitrite Negative (Negative); Specific Gravity 1.015 (1.005-1.025); Urobilinogen 0.2 EU/dL (Up TO 0.2)
[2021-07-15] MEDS: Mylanta Suspension 30 ML CUP PO (23:48)
[2021-07-15] MEDS: Acetaminophen 325 MG TAB 650 MG PO (23:48)
== END 2021-07-16 00:04 | disposition home or self-care (01) ==
LOC: ER 07-16 00:12
PROVIDERS: Emergency Provider Physician Assistant; PCP Family Medicine
DX: F10.20 Alcohol dependence, uncomplicated (principal); R10.13 Epigastric pain; K29.20 Alcoholic gastritis without bleeding; R10.12 Left upper quadrant pain
CPT/HCPCS: 36415; 71250; 80053; 83690; 93005; 96360; 99284; 74176; 81003; 85025; 93010

== ENCOUNTER 2021-07-18 22:03 | Emergency (ER) | payer MEDICAID, SELFPAY ==
[2021-07-18 22:07] VITALS: BP 150/94; PULSE 101; RESP 16; TEMP 36.1; O2SAT 98
--- NOTE | 2021-07-18 22:18 | ED.GENADUL_ITS ---
Discharge Plan Disposition Patient Disposition: AGAINST MEDICAL ADVICE Condition: Stable Discharge Details Clinical Impression: Alcohol use disorder, severe, dependence, Thickened small bowel Primary Care Provider: Benjamin Bustillos ED Provider: Liz Regalado Medical Decision Making <Liz Regalado NP - Last Filed: 07/18/21 23:49> Presents with abdominal pain and distention. Has a chronic alcohol use disorder last drink prior to presentation. Differentials include pancreatitis, SBP, gastric ulcer, Reviewed lactic acid has been chronically elevated in the past so not useful At change of shift CT results are pending signout given to Dr. Smith. It was reported that he told his IV out, will hold off on restarting for now Medical Records Medical records reviewed: Yes I reviewed the patient's medical records. Medical records narrative: CT scan from July 15 last is reviewed and shows no evidence of ascitic fluid so SBP less likely Lab Data Lab results reviewed: Yes I reviewed the patient's lab results. Labs: lab Laboratory Results - last 24 hr 07/18/21 22:50 VBG Lactate 2.9 H* Laboratory Results - last 24 hr 07/18/21 07/18/21 07/18/21 22:50 22:50 22:50 WBC 4.03 L RBC 4.31 L Hgb 13.6 Hct 39.7 L MCV 92 MCH 31.6 MCHC 34.3 D RDW 14.7 H Plt Count 201 MPV 9.5 Immature Gran % 0.2 Neutrophils % 39.3 Lymphocytes % 48.1 Monocytes % 10.2 Eosinophils % 1.7 Basophils % 0.5 Nucleated RBC % 0.0 Absolute Neutrophils 1.58 Absolute Lymphocytes 1.94 Absolute Monocytes 0.41 Absolute Eosinophils 0.07 Absolute Basophils 0.02 VBG Lactate 2.9 H* Sodium 140 Potassium 3.1 L Chloride 106 Carbon Dioxide 24.1 Anion Gap 9.9 BUN 4 L Creatinine 0.6 L Estimated GFR/1.73 m2 >= 60.00 Glucose 101 Calcium 8.1 L Magnesium 2.1 Total Bilirubin 0.4 AST 28 ALT 20 Alkaline Phosphatase 103 Total Protein 6.8 Albumin 2.9 L Lipase 144 <Fidel Smith DO - Last Filed: 07/19/21 01:48> Presents with abdominal pain and distention. Has a chronic alcohol use disorder last drink prior to presentation. Differentials include pancreatitis, SBP, gastric ulcer, Reviewed lactic acid has been chronically elevated in the past so not useful At change of shift CT results are pending signout given to Dr. Smith. It was reported that he told his IV out, will hold off on restarting for now Dr. Smith's documentation 12:58 AM Patient was signed out to me by Liz Regalado. Please refer to HPI, physical exam, assessment and plan. Patient was signed out pending CT scan results. Unfortunately patient decided to leave AGAINST MEDICAL ADVICE prior to discharge, or the CT scan results returning. He stated to nursing staff that he just wanted to leave, and he was very upset that we had not found him a ride. We informed him that we had not yet discharged him as we are still waiting on the CT scan, but this did not have any significant sway over him. We also informed him that we were unable to get a ride with [facility] at this time of night, and the hospital otherwise does not have any other ride services. Patient is of a appropriate age to make decisions. The patient is of sound mind, appears clinically sober, and has capacity to make decisions by my clinical exam. We have provided options for treatment and discussed the risks and benefits of these options and refusing these options, including and disability specific to the patient's pathology. Patient is able to discuss the risks and benefits and alternatives of treatment and refusing treatment. We have tried to involve the patient's family or support group that was present here or by contacting them on the phone. The patient chooses to leave before evaluation and treatment is complete AGAINST MEDICAL ADVICE. 1:[address] results have returned, there is evidence of continued chronic pancreatitis, partial low-grade small bowel obstruction however clinically the patient has been able to tolerate p.o, and has not had any vomiting here whatsoever. There is some thickening noted in the small bowel, this is most likely secondary to inflammatory changes related to his chronic pancreatitis. However since the patient left AGAINST MEDICAL ADVICE and is no longer here and is unable to be reached we will add this to the diagnosis for further outpatient follow-up. FINDINGS: Lungs: The visualized lung ryan show mild bibasilar atelectasis. Liver: The liver is normal in size. There is mild hepatic steatosis. Gallbladder and bile ducts: No calcified gallstones. No ductal dilation. Pancreas: There is dilatation of the pancreatic duct. There are coarse calcifications in the pancreas, predominantly in the pancreatic head, unchanged from prior examinations consistent with chronic pancreatitis (series 2, images 20-26; series 3, images 38-44). Spleen: Normal. No splenomegaly. Adrenal glands: Normal. No mass. Kidneys and ureters: No evidence of hydronephrosis. No renal or ureteral calculi. Stomach and bowel: There is wall thickening and stricture at the junction of the 2nd and 3rd portions of the duodenum (series 3, images 42-45). There is mild dilatation of multiple proximal small bowel loops with the zone of transition in the mid abdomen consistent with low-grade, partial small bowel obstruction (series 2, images 25-40; series 3, images 17-45). There is moderate diverticulosis throughout the entire colon, from the cecum through the sigmoid Appendix: No evidence of appendicitis. Intraperitoneal space: No free air. No significant fluid collection. Vasculature: There is extensive atherosclerotic calcification of the abdominal a brandon and its branches. No abdominal aortic aneurysm is identified. Lymph nodes: No enlarged retroperitoneal or mesenteric lymph nodes. Urinary bladder: There is a markedly distended urinary bladder measuring 18.8 cm in the craniocaudal plane x 7.2 cm in the anteroposterior dimension x 8.2 cm transversely. Reproductive: The prostate measures 4 cm in transverse dimension. Bones/joints: There is diffuse osseous demineralization. There is lumbarization of L5. At L4-L5, there is degenerative disc disease and vacuum disc. Soft tissues: Unremarkable. IMPRESSION: 1. Partial, low-grade small bowel obstruction with a transition point in the mid abdomen. 2. Extensive moderate colonic diverticulosis without diverticulitis. 3. Dilatation of the pancreatic duct with pancreatic calcifications, most numer ous in the head of the pancreas. This findings consistent with chronic pancreatitis and is stable when compared to prior examinations. 4. Thickening and mild narrowing at the junction of the 2nd and 3rd portions of the duodenum, not seen on the above referenced comparison examinations, likely due to lack of duodenal distention. This may be secondary to prior inflammatory changes related to pancreatitis; however, neoplasm may present a similar picture. THIS REPORT CONTAINS FINDINGS THAT MAY BE CRITICAL TO PATIENT CARE. The findings were verbally communicated via telephone conference with LIZ REGALADO at 1:25 AM EDT on 07/19/2021. The findings were acknowledged and understood. Thank you for allowing us to participate in the care of your patient. Dictated and Authenticated by: Eric Park MD 07/19/2021 1:43 AM Eastern Time ([place] & [place]) HPI <Liz Regalado NP - Last Filed: 07/18/21 23:49> General Mode of arrival: EMS . Date/Time Provider Initiated Documentation: 07/18/21 22:12 . Limitations to Documentation: no limitations . Information obtained by: patient . HPI Narrative: Presents to the emergency department via EMS with complaints of abdominal pain and distention last reports drinking alcohol today. Fever chills or recent illness. Reports similar history with episode of pancreatitis. Reports normal stooling with no black or tarry stools or diarrhea Related Data Allergies Allergy/AdvReac Type Severity Reaction Status Date / Time Penicillins Allergy Verified 07/18/21 22:13 General Stated Complaint: Abd Prob DMITRI: 2 Review of Systems <Liz Regalado NP - Last Filed: 07/18/21 23:49> Constitutional Constitutional: Reports as per HPI PFSH <Liz Regalado NP - Last Filed: 07/18/21 23:49> All Active Problems (Updated 07/19/21 @ 01:48 by Fidel Smith DO) Bronchitis (Acute) Thickened small bowel (Acute) Bipolar disorder, unspecified (Acute) Major depressive disorder, recurrent, unspecified (Acute) Tobacco use disorder, severe, dependence (Acute) Cocaine use disorder, severe, dependence (Acute) Cannabis use disorder, severe, dependence (Acute) Alcohol use disorder, severe, dependence (Acute) UTI (urinary tract infection) (Acute) Vomiting (Acute) Alcohol intoxication (Acute) Acute on chronic pancreatitis (Acute) GERD (gastroesophageal reflux disease) (Chronic) Abdominal pain (Acute) Pancreatitis (Chronic) Chronic abdominal pain (Chronic) Chronic alcoholic pancreatitis (Acute) Dilated cbd, acquired (Acute) Constipation (Acute) HTN (hypertension) (Chronic) Hypomagnesemia (Acute) Hypokalemia (Acute) Pancreatic mass (Acute) Chronic anticoagulation (Acute) Alcoholism, chronic (Chronic) Alcoholic gastritis (Acute) Nonadherence to medication (Acute) Common bile duct dilation (Acute) Deep vein thrombosis (DVT) of right upper extremity (Chronic) Medical History Acute UTI Alcohol withdrawal Alcoholism /alcohol abuse ARDS (adult respiratory distress syndrome) Aspiration pneumonia Chronic pain COVID-19 ruled out by laboratory testing Enterocolitis Fever Ground glass opacity present on imaging of lung Hiccups Hx of hyperlipidemia Hypokalemia Hypomagnesemia Insomnia Myocardial infarction x 2 Pancreatitis Pancreatitis, chronic Pneumonia Presence of pancreatic duct stent (~01/2018) Sean Sears Retention of urine Septal myocardial infarction (01/18/20) probably old, [facility] records Surgical History S/P ERCP (~01/2018) Sean Sears Family History Mother Alcohol abuse Father Alcohol abuse Social History Smoking/Tobacco Use Status: Current every day Tobacco Type: cigarettes Smoking packs per day: 1 Smoking cigarettes per day: 20.0 Smoking risk assessment performed?: Yes Alcohol Intake: current Alcohol Intake frequency: 3 or more drinks per day Alcohol type: beer Drug use: Daily Substance use type: marijuana Housing: apartment Do you feel safe at home: Yes Do you feel safe in your relationship?: Yes Exam <Liz Regalado NP - Last Filed: 07/18/21 23:49> Const General: acute distress moderate, disheveled, frail appearing (Appearing older than stated age), ill appearing chronically and intoxicated appearing Nutritional Appearance: malnourished and thin Orientation: alert, awake and oriented x3 GI Inspection: normal to inspection and distended Palpation: firm and tender in the epigastrum, in the LUQ and in the RUQ Neuro General: patient alert, patient awake and patient oriented x3 Course <Liz Regalado NP - Last Filed: 07/18/21 23:49> Vital Signs Vital signs: Vital Signs Temperature 36.1 C L 07/18/21 22:07 Pulse 101 H 07/18/21 22:07 Respiratory Rate 16 07/18/21 22:07 Blood Pressure 150/94 H 07/18/21 22:07 Pulse Oximetry 98 07/18/21 22:07 Temperature 36.1 C L 07/18/21 22:07 Temperature Source Temporal Artery Scan 07/18/21 22:07 Pulse 101 H 07/18/21 22:07 Respiratory Rate 16 07/18/21 22:07 Respiratory Effort Non-Labored 07/18/21 22:10 Blood Pressure 150/94 H 07/18/21 22:07 Blood Pressure Position Sitting 07/18/21 22:07 Pulse Oximetry 98 07/18/21 22:07 Oxygen Delivery Method Room Air 07/18/21 22:07 Oxygen Flow Rate 0 07/18/21 22:07 Pain Level 10 07/18/21 22:07 Sign Out <Liz Regalado NP - Last Filed: 07/18/21 23:49> Sign Out Data: Sign Out Comment: Presents with abdominal pain and distention. CT pending for review and disposition has received Phenergan and Toradol Last updated by Liz Regalado NP at 07/18/21 23:45 PAWSS <Liz Regalado NP - Last Filed: 07/18/21 23:49> Have you Been Recently Intoxicated or Drunk Within the Last 30 days?: Yes Have you Ever Experienced Previous Episodes of Alcohol Withdrawal?: Yes Have you ever Experienced Withdrawal Seizures?: Yes Have you ever Experienced Delirium Tremens(DT)s?: Yes Have you ever undergone Alcohol Rehabilitation Treatment (i.e, inpt ot outpati ent treatment programs)?: No Have you ever Experienced Blackouts?: Yes Have you ever Combined Alcohol with other Downers within the last 90 days?: No Have you ever Combined Alcohol with any other Substance of Abuse during the last 90 days?: Yes Positive Blood Alcohol level on Presentation? [PCS.BAL]: Yes Evidence of Increased Autonomic Activity (i.e. HR>120, tremor, sweating, agitation, nausea)?: Yes Result: 9 <Fidel Smith DO - Last Filed: 07/19/21 01:48> Result: 9
[2021-07-18] MEDS: Ketorolac 15 MG/ML VIAL IVP (22:50)
[2021-07-18] MEDS: Normal Saline 1,000 ML 150 ML IV (22:51)
[2021-07-18 23:05] LABS: Lactate 2.9 mmol/L (0.6-1.4)
[2021-07-18 23:08] LABS: Abs Immature Grans 0.01 10^3/uL (0.0-0.06); Absolute Basophil Count 0.02 10^3/uL (0.0-0.2); Absolute Eosinophil Count 0.07 10^3/uL (0.0-0.7); Absolute Lymphocyte Count 1.94 10^3/uL (1.2-3.4); Absolute Monocyte Count 0.41 10^3/uL (0.1-0.8); Absolute Neutrophil Count 1.58 10^3/uL (1.2-6.7); Basophils % 0.5; Eosinophils % 1.7; HCT 39.7 % (40.0-50.0); HGB 13.6 g/dL (13.5-17.5); Immature Grans % 0.2; Lymphocytes % 48.1; MCH 31.6 pg (27.0-33.0); MCHC 34.3 % (32.0-36.0); MCV 92 fL (80-95); MPV 9.5 fL (8.0-11.0); Monocytes % 10.2; Neutrophils % 39.3; Platelet Count 201 10^3/uL (130-400); RBC 4.31 10^6/uL (4.36-5.78); RDW 14.7 % (11.8-14.1); RDW-SD 50.1 fL; WBC 4.03 10^3/uL (4.4-10.8)
[2021-07-18 23:22] LABS: ALT 20 U/L (16-63); AST 28 U/L (15-37); Albumin 2.9 g/dL (3.4-5.0); Alkaline Phosphatase 103 U/L (46-116); Anion Gap 9.9 mmol/L (3-11); BUN 4 mg/dL (7-18); Bilirubin, Total 0.4 mg/dL (0.2-1.0); CO2 24.1 mmol/L (21.0-32.0); CREATININE 0.6 mg/dL (0.70-1.30); Calcium 8.1 mg/dL (8.5-10.1); Chloride 106 mmol/L (98-107); Glucose 101 mg/dL (74-106); Lipase 144 U/L (73-393); Magnesium 2.1 mg/dL (1.8-2.4); Potassium 3.1 mmol/L (3.5-5.1); Sodium 140 mmol/L (136-145); Total Protein 6.8 g/dL (6.4-8.2)
--- NOTE | 2021-07-18 23:30 | DI.CT_ITS ---
Exam(s) CT ABDOMEN PELVIS WO EXAM: CT ABDOMEN PELVIS WO CLINICAL HISTORY: abd pain. TECHNIQUE: Imaging Protocol: Axial computed tomography images with coronal and sagittal reformatted images were created and reviewed. COMPARISON: CT CT CHEST/ABD/PEL WO from 07/15/2021 FINDINGS: ABDOMEN: Lung Bases: Normal where visualized. Liver: Normal density. No measurable mass. Gallbladder and biliary tract: No radiodense calculus or biliary ductal dilation. Pancreas: Calcifications are present throughout the pancreas consistent with chronic pancreatitis. T here is again seen mild dilatation of the pancreatic duct. No peripancreatic inflammatory changes or peripancreatic fluid collections are seen. Spleen: Normal. Kidneys: Normal size, contour and axis.No radiodense stones or obstructive uropathy. No masses seen. Adrenal glands: No mass is seen. Lymph nodes: Within normal limits. Abdominal Aorta: Abdominal portion non-dilated. Atherosclerosis. PELVIS: Bladder:There is marked distention of the urinary bladder. Bowel: There is diverticulosis seen in the colon but no evidence of acute diverticulitis. No evidenc e of appendicitis. There are dilated loops of proximal small bowel with normal caliber distal small bowel. There does appear to be a transition in the mid abdomen. There is a question of mild narrowi ng of the duodenum at the junction of the 2nd and 3rd portions. Question of wall thickening is seen at this area. Peritoneal cavity: No ascites, collection or mesenteric inflammatory response. No free air. Reproductive organs: Within normal limits. Bones: Within normal limits. Soft Tissues: Small fat containing umbilical hernia. IMPRESSION: 1. Findings suspicious for small bowel obstruction with a transition in the mid abdomen. 2. Findings of chronic pancreatitis which appears stable. 3. Question of mild narrowing at the junction of the 2nd and 3rd portions of the duodenum. Inflammat ory/infectious process may have this appearance. Neoplasm cannot be excluded. Upper GI and or endos copy may be considered for further evaluation. RADIATION DOSE DELIVERED: 689.73mGy.cm Total DLP DATA REPOSITORY: All CT scans at this facility are submitted to the National Radiology Data Registry (NRDR) Dose Index Registry (DIR) with the [employer] ([employer]). RADIATION OPTIMIZATION: All CT scans at this facility use at least one of these dose optimization te chniques: automated exposure control; mA and/or kV adjustment per patient size (includes targeted exa ms where dose is matched to clinical indication); or iterative reconstruction.
[2021-07-19 00:18] LABS: Procalcitonin < 0.1 ng/mL
--- NOTE | 2021-07-19 01:44 | DI.VRAD_ITS ---
PROCEDURE INFORMATION: Exam: CT Abdomen And Pelvis Without Contrast Exam date and time: 07/19/2021 12:18 AM Age: 61 years old Clinical indication: Abdominal pain; Generalized; Additional info: Acute abd pain TECHNIQUE: Imaging protocol: Computed tomography of the abdomen and pelvis without contrast. Radiation optimization: All CT scans at this facility use at least one of these dose optimization techniques: automated exposure control; mA and/or kV adjustment per patient size (includes targeted exams where dose is matched to clinical indication); or iterative reconstruction. COMPARISON: 1. CT CHEST/ABD/PEL WO 07/15/2021 10:[address] ABDOMEN/PELVIS 03/09/2021 10:07 PM FINDINGS: Lungs: The visualized lung ryan show mild bibasilar atelectasis. Liver: The liver is normal in size. There is mild hepatic steatosis. Gallbladder and bile ducts: No calcified gallstones. No ductal dilation. Pancreas: There is dilatation of the pancreatic duct. There are coarse calcifications in the pancreas, predominantly in the pancreatic head, unchanged from prior examinations consistent with chronic pancreatitis (series 2, images 20-26; series 3, images 38-44). Spleen: Normal. No splenomegaly. Adrenal glands: Normal. No mass. Kidneys and ureters: No evidence of hydronephrosis. No renal or ureteral calculi. Stomach and bowel: There is wall thickening and stricture at the junction of the 2nd and 3rd portions of the duodenum (series 3, images 42-45). There is mild dilatation of multiple proximal small bowel loops with the zone of transition in the mid abdomen consistent with low-grade, partial small bowel obstruction (series 2, images 25-40; series 3, images 17-45). There is moderate diverticulosis throughout the entire colon, from the cecum through the sigmoid. Appendix: No evidence of appendicitis. Intraperitoneal space: No free air. No significant fluid collection. Vasculature: There is extensive atherosclerotic calcification of the abdominal aorta and its branches. No abdominal aortic aneurysm is identified. Lymph nodes: No enlarged retroperitoneal or mesenteric lymph nodes. Urinary bladder: There is a markedly distended urinary bladder measuring 18.8 cm in the craniocaudal plane x 7.2 cm in the anteroposterior dimension x 8.2 cm transversely. Reproductive: The prostate measures 4 cm in transverse dimension. Bones/joints: There is diffuse osseous demineralization. There is lumbarization of L5. At L4-L5, there is degenerative disc disease and vacuum disc. Soft tissues: Unremarkable. IMPRESSION: 1. Partial, low-grade small bowel obstruction with a transition point in the mid abdomen. 2. Extensive moderate colonic diverticulosis without diverticulitis. 3. Dilatation of the pancreatic duct with pancreatic calcifications, most numerous in the head of the pancreas. This findings consistent with chronic pancreatitis and is stable when compared to prior examinations. 4. Thickening and mild narrowing at the junction of the 2nd and 3rd portions of the duodenum, not seen on the above referenced comparison examinations, likely due to lack of duodenal distention. This may be secondary to prior inflammatory changes related to pancreatitis; however, neoplasm may present a similar picture. THIS REPORT CONTAINS FINDINGS THAT MAY BE CRITICAL TO PATIENT CARE. The findings were verbally communicated via telephone conference with LIZ HAN at 1:25 AM EDT on 07/19/2021. The findings were acknowledged and understood. Dictated and Authenticated by: Eric Park MD. Ordering:JOVAN Gentile MD
== END 2021-07-19 00:35 | disposition left against medical advice (07) ==
PROVIDERS: Emergency Provider Nurse Practitioner Acute Care; PCP Family Medicine
DX: F10.20 Alcohol dependence, uncomplicated (principal); Z53.29 Procedure and treatment not carried out because of patient's decision for other reasons; R14.0 Abdominal distension (gaseous); R93.5 Abnormal findings on diagnostic imaging of other abdominal regions, including retroperitoneum
CPT/HCPCS: 80053; 83690; 84145; 96361; 96365; 99284; 74176; 83605; 83735; 85025; J1885

== ENCOUNTER 2021-07-21 22:52 | Emergency (ER) | payer MEDICAID, SELFPAY ==
[2021-07-21 22:57] VITALS: BP 129/83; PULSE 109; RESP 16; TEMP 36.8; O2SAT 98
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
--- NOTE | 2021-07-21 23:05 | W.ED.GENAD ---
Discharge Plan Disposition Patient Disposition: HOME Condition: Good Discharge Details Clinical Impression: Closed fracture of fibula, proximal, left, Numbness and tingling of left leg Primary Care Provider: Benjamin Bustillos ED Provider: Fidel Smith Home Meds and New Rx's Prescriptions: No Action No Known Home Meds Discharge Instructions Instructions: Leg Fracture (ED) Additional Instructions: At this time you show evidence of a fracture of your fibula which is the bone near your knee. The walking boot can help reduce some of this pain. Use the crutches as needed. Take Tylenol or Motrin as needed for pain. Please follow-up closely with the fire fighting equipment specialist. If you notice any worsening of your symptoms, or any new symptoms such as vomiting, diarrhea, fever, chills, shortness of breath, chest pain, numbness, weakness, or fainting , please return immediately to the emergency department for reevaluation. Please follow up with your primary care provider as soon as possible for reassessment and reevaluation. As always, it was a pleasure participating in your medical care today. Referrals: Benjamin Bustillos DO [Primary Care Provider] - Medical Decision Making 61-year-old male with multiple medical problems including chronic alcoholism presents today for left knee pain. Patient states he was moving a friend's 800 pound cabinet when it fell and hit his knee. He called EMS, and was brought to the ER for further evaluation. He has been able to ambulate in spite of the injury. He admits to pain at the anterior aspect of the knee in the medial aspect. No radiation anywhere else. Pain is present with movement. Improved by rest. No numbness or tingling. Exam demonstrates a small bruise on the anterior aspect of the knee and a small excoriation over the medial aspect of the left knee. No crepitus. No evidence of significant deformity otherwise. Normal neurovascular exam proximally and distally to the injury. We will get an x-ray to rule out fracture, apply Lidoderm patch, monitor closely and reassess. 1:46 AM X-ray shows evidence of a proximal fibular fracture, no evidence of distal fracture. No evidence of Maisonneuve fracture. With the fracture of the fibular head, I did reassess again and the patient demonstrates no evidence of foot drop. He has good dorsiflexion of the great toe, good plantar and dorsiflexion of the foot in general. His sensation is somewhat atypical. He has intact but slightly diminished sensation all over the entirety of his leg, including the medial aspect and proximally on the medial side of the knee and higher. This certainly does not reflect an isolated peroneal nerve injury. There may certainly be a chronic component secondary to chronic spinal stenosis, or peripheral neuropathy. Strength hamilton he does not seem to demonstrate evidence of a peroneal nerve disability, however again the sensation deficits are atypical and do not align themselves with a single acute injury pattern. Out of an abundance of precaution we will recommend outpatient orthopedic follow-up for reassessment. Patient will be given an Crispin wrap, crutches to manager helpdesk in weightbearing versus nonweightbearing, as well as a orthopedic boot to help with pain control. I have extensively reviewed the treatment plan and discharge instructions with the patient. I have addressed all patient concerns at this time. The patient was made aware of what symptoms to monitor for that would warrant a return to the emergency department. Discussed the plan with the patient, they demonstrate verbal understanding and agreement with our assessment and plan at this time. The documentation in this chart was dictated using [employer] dictation software. Please excuse any dictation errors. Bones/joints: There is a nondisplaced fracture of the proximal fibula. Superior patellar spur is identified. There are no acute fractures or dislocations. There are no focal bone lesions. The knee joint space is well preserved. Soft tissues: Normal. Vasculature: Arteriosclerotic changes are identified. IMPRESSION: Nondisplaced fracture of the proximal fibula FINDINGS: Bones/joints: There is a nondisplaced fracture of the proximal fibula. Posterior calcaneal spur is demonstrated. There are no focal lytic or blastic bone lesions. Soft tissues: Normal. Vasculature: Scattered arteriosclerotic changes are identified. IMPRESSION: 1. Nondisplaced fracture of the proximal fibula. 2. Posterior calcaneal spur. Thank you for allowing us to participate in the care of your patient. Dictated and Authenticated by: rFank Lockett MD 07/22/2021 1:20 AM Eastern Time ([place] & [place]) HPI General Date/Time Provider Initiated Documentation: 07/21/21 23:03. HPI Narrative: 61-year-old male with multiple medical problems including chronic alcoholism presents today for left knee pain. Patient states he was moving a friend's 800 pound cabinet when it fell and hit his knee. He called EMS, and was brought to the ER for further evaluation. He has been able to ambulate in spite of the injury. He admits to pain at the anterior aspect of the knee in the medial aspect. No radiation anywhere else. Pain is present with movement. Improved by rest. No numbness or tingling. Related Data Home Medications Medication Instructions Recorded Confirmed Unknown [No Known Home Meds] 07/21/21 07/21/21 Allergies Allergy/AdvReac Type Severity Reaction Status Date / Time Penicillins Allergy Verified 07/18/21 22:13 General Stated Complaint: Orthopedic DMITRI: 4 Review of Systems All systems reviewed & are unremarkable except as noted in HPI and below PFSH All Active Problems (Updated 07/22/21 @ 01:51 by Fidel Smith DO) Thickened small bowel (Acute) Closed fracture of fibula, proximal, left (Acute) Numbness and tingling of left leg (Acute) Bipolar disorder, unspecified (Acute) Major depressive disorder, recurrent, unspecified (Acute) Tobacco use disorder, severe, dependence (Acute) Cocaine use disorder, severe, dependence (Acute) Cannabis use disorder, severe, dependence (Acute) Alcohol use disorder, severe, dependence (Acute) UTI (urinary tract infection) (Acute) Vomiting (Acute) Alcohol intoxication (Acute) Acute on chronic pancreatitis (Acute) GERD (gastroesophageal reflux disease) (Chronic) Abdominal pain (Acute) Pancreatitis (Chronic) Chronic abdominal pain (Chronic) Chronic alcoholic pancreatitis (Acute) Dilated cbd, acquired (Acute) Constipation (Acute) HTN (hypertension) (Chronic) Hypomagnesemia (Acute) Hypokalemia (Acute) Pancreatic mass (Acute) Chronic anticoagulation (Acute) Alcoholism, chronic (Chronic) Alcoholic gastritis (Acute) Nonadherence to medication (Acute) Common bile duct dilation (Acute) Deep vein thrombosis (DVT) of right upper extremity (Chronic) Medical History Acute UTI Alcohol withdrawal Alcoholism /alcohol abuse ARDS (adult respiratory distress syndrome) Aspiration pneumonia Chronic pain COVID-19 ruled out by laboratory testing Enterocolitis Fever Ground glass opacity present on imaging of lung Hiccups Hx of hyperlipidemia Hypokalemia Hypomagnesemia Insomnia Myocardial infarction x 2 Pancreatitis Pancreatitis, chronic Pneumonia Presence of pancreatic duct stent (~01/2018) Steffanie Sears. Retention of urine Septal myocardial infarction (01/18/20) probably old, [facility] records Surgical History S/P ERCP (~01/2018) Steffanie Sears. Family History Mother Alcohol abuse Father Alcohol abuse Social History Smoking/Tobacco Use Status: Current every day Tobacco Type: cigarettes Smoking packs per day: 1 Smoking cigarettes per day: 20.0 Smoking risk assessment performed?: Yes Alcohol Intake: current Alcohol Intake frequency: 3 or more drinks per day Alcohol type: beer Drug use: Daily Substance use type: marijuana Housing: apartment Do you feel safe at home: Yes Do you feel safe in your relationship?: Yes Exam Narrative Exam Narrative: 1.Const: Well-nourished, Well-developed, appearing stated age 2.Eyes: PERRL, no conjunctival injection, and symmetrical lids. 3.ENT: Atraumatic external nose and ears. Moist MM. Neck: Symmetric, trachea midline, No thyromegaly. 4.CVS: +S1/S2, No murmurs or gallops. Peripheral pulses 2+ and equal in all extremities. Brisk capillary refill in all extremities. 5.RESP: Unlabored respiratory effort. Clear to auscultation bilaterally. No wheezes rales or rhonchi 6.GI: Soft, Nontender/Nondistended, No hepatosplenomegaly. No guarding or rebound. 7.MSK: Left knee demonstrates a small bruise over the anterior tibial plateau and a small excoriation over the medial component of the knee. The knee is stable to varus, valgus, and anterior drawer stress. No deformity. Patellar grind test is negative. Esme test is minimally positive for pain. Patient is able to walk without difficulty. No edema or warmth to the joint. Mild tenderness over the midshaft fibula as well. Patient does demonstrate good plantar and dorsiflexion of the left and right foot. He demonstrates excellent plantar and dorsiflexion of the toes including the great toe. 8.Skin: Warm, Dry. No rashes or lesions. 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 Patient does demonstrate present but slightly diminished sensation over the entirety of the foot on both the medial and lateral aspect, the proximal farnsworth for all components, and the medial component of the knee. However he shows no evidence of saddle anesthesia or other deficits. 10.Psych: (AAO) x3. Appropriate mood and affect Course Vital Signs Vital signs: Vital Signs Temperature 36.8 C 07/21/21 22:57 Pulse 109 H 07/21/21 22:57 Respiratory Rate 16 07/21/21 22:57 Blood Pressure 129/83 07/21/21 22:57 Pulse Oximetry 98 07/21/21 22:57 Temperature 36.8 C 07/21/21 22:57 Temperature Source Oral 07/21/21 22:57 Pulse 109 H 07/21/21 22:57 Respiratory Rate 16 07/21/21 22:57 Respiratory Effort Non-Labored 07/21/21 23:00 Blood Pressure 129/83 07/21/21 22:57 Pulse Oximetry 98 07/21/21 22:57 Oxygen Delivery Method Room Air 07/21/21 22:57 Oxygen Flow Rate 0 07/21/21 22:57 Pain Level 8 07/21/21 22:57 PAWSS Have you Been Recently Intoxicated or Drunk Within the Last 30 days?: Yes Have you Ever Experienced Previous Episodes of Alcohol Withdrawal?: Yes Have you ever Experienced Withdrawal Seizures?: Yes Have you ever Experienced Delirium Tremens(DT)s?: Yes Have you ever undergone Alcohol Rehabilitation Treatment (i.e, inpt ot outpatient treatment programs)?: Yes Have you ever Experienced Blackouts?: Yes Have you ever Combined Alcohol with other Downers within the last 90 days?: Yes Have you ever Combined Alcohol with any other Substance of Abuse during the last 90 days?: Yes Positive Blood Alcohol level on Presentation? [PCS.BAL]: Yes Evidence of Increased Autonomic Activity (i.e. HR>120, tremor, sweating, agitation, nausea)?: Yes Result: 10
[2021-07-22] MEDS: Lidocaine 5% Patch 1 PATCH TP (00:24)
--- NOTE | 2021-07-22 00:30 | DI.RAD_ITS ---
Exam(s) XR TIB/FIB LT EXAM: XR TIB/FIB LT CLINICAL HISTORY: prox fib fx, eval for Maisonneuve fracture. TECHNIQUE: 2D digital imaging was performed. COMPARISON: No exams were available for comparison FINDINGS: Two views There is nondisplaced fracture in the neck-proximal diaphysis of the fibula. No other fractures iden tified. IMPRESSION: Fracture of the proximal fibula, nondisplaced. No other fracture seen DATA REPOSITORY: RADIATION DOSE DELIVERED:
--- NOTE | 2021-07-22 00:34 | DI.VRAD_ITS ---
Addendum created by Frank Lockett MD on 07/22/2021 12:39:05 AM EDT: On the original report, under the findings, it states there is a nondisplaced fracture of the proximal fibula, but also states that there are no acute fractures or dislocations. This is incorrect. There is a nondisplaced fracture of the proximal fibula. Initial report created on 07/22/2021 12:34:00 AM EDT: PROCEDURE INFORMATION: Exam: XR Left Knee Exam date and time: 07/22/2021 12:03 AM Age: 61 years old Clinical indication: Injury or trauma; Other: File cabinet fell on leg; Blunt trauma; Knee; Left; Injury date: 07/21/21; Injury details: Med tib plat pain TECHNIQUE: Imaging protocol: XR Left knee. Views: 3 views. COMPARISON: CR XR KNEE LT 3V AP,LAT,BOWEN 01/15/2020 9:59 PM FINDINGS: Bones/joints: There is a nondisplaced fracture of the proximal fibula. Superior patellar spur is identified. There are no acute fractures or dislocations. There are no focal bone lesions. The knee joint space is well preserved. Soft tissues: Normal. Vasculature: Arteriosclerotic changes are identified. IMPRESSION: Nondisplaced fracture of the proximal fibula. Dictated and Authenticated by: Frank Lockett MD. Ordering:JACIEL Parra MD
--- NOTE | 2021-07-22 01:21 | DI.VRAD_ITS ---
PROCEDURE INFORMATION: Exam: XR Left Tibia and Fibula Exam date and time: 07/22/2021 1:01 AM Age: 61 years old Clinical indication: Injury or trauma; Other: File cabinet fell on leg; Blunt trauma; Lower leg; Left; Injury date: 07/21/21; Injury details: Prox fib FX, eval for maisonneuve fracture TECHNIQUE: Imaging protocol: XR Left tibia and fibula. Views: 2 views. COMPARISON: CR XR KNEE LT 3V AP,LAT,BOWEN 07/22/2021 12:03 AM FINDINGS: Bones/joints: There is a nondisplaced fracture of the proximal fibula. Posterior calcaneal spur is demonstrated. There are no focal lytic or blastic bone lesions. Soft tissues: Normal. Vasculature: Scattered arteriosclerotic changes are identified. IMPRESSION: 1. Nondisplaced fracture of the proximal fibula. 2. Posterior calcaneal spur. Dictated and Authenticated by: Frank Lockett MD. Ordering:JACIEL Parra MD
== END 2021-07-22 02:06 | disposition home or self-care (01) ==
PROVIDERS: Emergency Provider Student in an Organized Health Care Education/Training Program; PCP Family Medicine
DX: S82.492A Other fracture of shaft of left fibula, initial encounter for closed fracture (principal); W22.8XXA Striking against or struck by other objects, initial encounter; R20.0 Anesthesia of skin; M25.562 Pain in left knee
CPT/HCPCS: 73562; 99284; 73590; 99283

== ENCOUNTER 2021-07-28 19:00 | Emergency (ER) | payer MEDICAID, SELFPAY ==
[2021-07-28] VITALS (13 sets, daily range): BP systolic 172–186; BP diastolic 85–96; PULSE 74–90; RESP 16; TEMP 37; O2SAT 96–100
--- NOTE | 2021-07-28 20:30 | DI.CT_ITS ---
Exam(s) CT LOWER EXTREMITY LT WO EXAM: CT LOWER EXTREMITY LT WO CLINICAL HISTORY: Fibula fx w worsening knee pain and medial edema. TECHNIQUE: Imaging Protocol: Axial computed tomography images with coronal and sagittal reformatted images were created and reviewed. CONTRAST MATERIAL: Noncontrast COMPARISON: CR,XR XR KNEE LT 3V AP,LAT,BOWEN from 07/22/2021 CR,XR XR TIB/FIB LT from 07/22/2021 FINDINGS: Bones appear osteopenic. There is a comminuted minimally displaced fracture of the proximal fibula e xtending to the proximal tibial fibular joint. The line min appears unchanged from prior plain films . No proximal tibial, distal femoral or patellar fractures are seen. There is no evidence of a join t effusion. Vascular calcifications are noted. There is no focal hematoma. IMPRESSION: Stable appearance of proximal fibular fracture. No additional fractures are identified. RADIATION DOSE DELIVERED: 352.65mGy.cm Total DLP DATA REPOSITORY: All CT scans at this facility are submitted to the National Radiology Data Registry (NRDR) Dose Index Registry (DIR) with the [employer] ([employer]). RADIATION OPTIMIZATION: All CT scans at this facility use at least one of these dose optimization te chniques: automated exposure control; mA and/or kV adjustment per patient size (includes targeted exa ms where dose is matched to clinical indication); or iterative reconstruction.
--- NOTE | 2021-07-28 21:41 | DI.VRAD_ITS ---
PROCEDURE INFORMATION: Exam: CT Left Lower Extremity With Contrast, Knee Exam date and time: 07/28/2021 8:57 PM Age: 61 years old Clinical indication: Other: Fibula FX w worsening knee pain and medial edema TECHNIQUE: Imaging protocol: CT of the Left lower extremity with intravenous contrast was performed. Exam focused on the knee. Radiation optimization: All CT scans at this facility use at least one of these dose optimization techniques: automated exposure control; mA and/or kV adjustment per patient size (includes targeted exams where dose is matched to clinical indication); or iterative reconstruction. COMPARISON: CR XR KNEE LT 3V AP,LAT,BOWEN 07/22/2021 12:03 AM FINDINGS: Bones/joints: The osseus structures demontrate diffuse osteopenia. Comminuted minimally displaced acute of the head and neck of the fibula. No evidence of joint effusion. Soft tissues: Normal. Vasculature: The vasculature demonstrates diffuse marked atherosclerotic calcification. IMPRESSION: Comminuted minimally displaced acute of the head and neck of the fibula. Given technical differences, findings are unchanged compared to prior x-ray. Dictated and Authenticated by: Tommy Myers MD. Ordering:GUY Betts MD
[2021-07-28] MEDS: Normal Saline 1,000 ML 1000 ML IV (22:08)
[2021-07-28 22:10] LABS: Absolute Basophil Count 0.04 10^3/uL (0.0-0.2); Absolute Lymphocyte Count 1.14 10^3/uL (1.2-3.4); Absolute Monocyte Count 0.49 10^3/uL (0.1-0.8); Basophils % 0.9; HCT 45.5 % (40.0-50.0); HGB 15.1 g/dL (13.5-17.5); Lymphocytes % 26.6; MCH 31.6 pg (27.0-33.0); MCHC 33.2 % (32.0-36.0); MCV 95 fL (80-95); MPV 9.6 fL (8.0-11.0); Monocytes % 11.4; Neutrophils % 61.1; Platelet Count 180 10^3/uL (130-400); RBC 4.78 10^6/uL (4.36-5.78); RDW 16.4 % (11.8-14.1); RDW-SD 57.4 fL; WBC 4.28 10^3/uL (4.4-10.8)
[2021-07-28 22:11] LABS: Absolute Neutrophil Count 2.62 10^3/uL (1.2-6.7)
[2021-07-28 22:25] LABS: ALT 23 U/L (16-63); AST 32 U/L (15-37); Albumin 3.8 g/dL (3.4-5.0); Alkaline Phosphatase 145 U/L (46-116); Anion Gap 11.7 mmol/L (3-11); BUN 6 mg/dL (7-18); Bilirubin, Total 0.9 mg/dL (0.2-1.0); CO2 24.3 mmol/L (21.0-32.0); CREATININE 0.7 mg/dL (0.70-1.30); Calcium 9.2 mg/dL (8.5-10.1); Chloride 100 mmol/L (98-107); Glucose 101 mg/dL (74-106); Lipase 63 U/L (73-393); Magnesium 2.1 mg/dL (1.8-2.4); Potassium 3.9 mmol/L (3.5-5.1); Sodium 136 mmol/L (136-145); Total Protein 8.5 g/dL (6.4-8.2)
[2021-07-28 22:34] LABS: ETHANOL BLOOD < 3.0 mg/dL (<10)
[2021-07-28 23:32] LABS: Bilirubin Negative (Negative); Blood Negative (Negative); Clarity Clear (Clear); Glucose Negative (Negative); Ketones 40 mg/dL (Negative); Leukocyte Esterase Negative (Negative); Nitrite Negative (Negative); Urobilinogen 0.2 EU/dL (Up TO 0.2); pH 6.5 (5-8)
--- NOTE | 2021-07-28 23:58 | ED.GENADUL_ITS ---
Discharge Plan Disposition Patient Disposition: HOME Condition: Serious Discharge Details Clinical Impression: Chronic abdominal pain, Closed fracture of fibula, proximal, left, Numbness and tingling of left leg Primary Care Provider: Benjamin Bustillos ED Provider: Alpesh Mota Home Meds and New Rx's Prescriptions: No Action No Known Home Meds Discharge Instructions Instructions: Leg Fracture (ED), Chronic Pain (ED) Additional Instructions: During today's evaluation your labs were reassuring and I feel that your abdominal pain is more chronic in nature. As discussed your leg pain is secondary to not following up with orthopedics and that you have a fracture. It is recommended to at least wear the provided leg brace to see if this helps with your discomfort and you may take [id number] pain medication as directed on packaging. Begin you were offered crutches and a walking boot which you have refused to take at this time. It is still recommended that you follow-up with orthopedist office and please give their office a call for arrangement of follow-up appointment. Referrals: [facility] [Provider Group] Discharge Data Discharge Date/Time-TO BE ENTERED AT DEPARTURE: 07/29/21 00:47 Medical Decision Making Patient presenting to the emergency department for chief complaint of left leg pain. Patient is well familiar to emergency department as he frequents the ED quite often for complaints of abdominal pain, alcohol withdrawal, pancreatitis. He has not followed up with orthopedist and complaining of worsening pain and swelling. He is also complaining of abdominal pain. Patient states last alcohol intake was 2 days ago. Physical exam of the abdomen is not worrisome with mild epigastric tenderness but no guarding no rigidity and normal active bowel sounds are noted. Left lower extremity does show significant tenderness to the lateral aspect in the area of the fibular head but of notation is that there is no significant swelling and ecchymosis to medial aspect of the knee as well. Exam is otherwise unremarkable and patient has no obvious physical exam findings to suggest acute alcohol withdrawal. We will plan on checking patient's labs given that he is complaining of belly pain but with him having multiple CT scans in the last couple years and frequent visits to the emergency department we will start with laboratory work-up before performing any further imaging of his abdomen. We will perform CT imaging of the knee given that he is stating worsening pain and discomfort along with medial swelling to look for any further fracture type pattern that may have been missed on x-ray. Review of patient's labs show at baseline CBC without leukocytosis or shift, no anemia, CMP again is not worrisome with slightly elevated alk phos of 145 and high protein of 8.5 otherwise unremarkable. Lipase is 63 which is reassuring and urine is again unremarkable except for urine ketones. Patient has no alcohol in his system currently which correlates with his story. Given none worrisome laboratory work-up I do not feel that further CT imaging of the abdomen is needed at this time and familiarity with patient Patient offered hinged knee brace given that he is not wearing Crispin wrap, using crutches, or wearing walking boot which was recommended. Patient states that he cannot use crutches or walking boot due to being homeless but is agreeable to trying hinged knee brace for further comfort. We will also give patient acetaminophen and ketorolac for pain control otherwise I feel that patient is able to be safely discharged and recommended to call the orthopedic office if he decides to follow-up with them Medical Records Medical records reviewed: Yes I reviewed the patient's medical records. Imaging Data Radiologic Study: Imaging: CT Scan Radiologist's impression: Vasculature: The vasculature demonstrates diffuse marked atherosclerotic calcification. IMPRESSION: Comminuted minimally displaced acute of the head and neck of the fibula. Given technical differences, findings are unchanged compared to prior x-ray. HPI General Mode of arrival: ambulatory . Date/Time Provider Initiated Documentation: 07/28/21 19:23 . Limitations to Documentation: no limitations . Information obtained by: patient and RN notes reviewed . History of Present Illness 61 year old M presents to the emergency department with the chief complaint of left knee pain, described as severe, with intensity rated at 10. Quality is described as sharp, and is localized to the left and lower extremity. Patient reports no radiation. Patient started experiencing this day(s) (4) and it has been constant. Immobilization improves symptom(s), and Rest improves symptom(s), Movement worsens symptoms . Patient did receive the following treatments prior to arrival, none Related Data Home Medications Medication Instructions Recorded Confirmed Unknown [No Known Home Meds] 07/21/21 07/28/21 Allergies Allergy/AdvReac Type Severity Reaction Status Date / Time Penicillins Allergy Verified 07/28/21 19:16 General Stated Complaint: Orthopedic DMITRI: 3 Review of Systems Constitutional Constitutional: Denies chills, Denies fever(s) and Denies headache(s) ENT Ears, Nose, Mouth, and Throat: Denies headache(s) Cardiovascular Cardiovascular: Denies chest pain and Denies dyspnea Respiratory Respiratory: Denies dyspnea Gastrointestinal Gastrointestinal: Reports abdominal pain, Reports change in stool character (2 episodes of dark stool 2 days ago), Denies nausea and Denies vomiting Genitourinary Genitourinary: Denies difficulty urinating and Denies dysuria Musculoskeletal Musculoskeletal: Reports as per HPI, Reports joint swelling and Reports tingling Integumentary/Breasts Skin/Breast: Reports change in pigmentation Neurologic Neurologic: Denies headache(s) and Reports tingling Hematologic/Lymphatic Hematologic/Lymphatic: Denies easy bruising PFSH All Active Problems (Updated 07/29/21 @ 00:21 by Alpesh Mota NP) Thickened small bowel (Acute) Closed fracture of fibula, proximal, left (Acute) Numbness and tingling of left leg (Acute) Bipolar disorder, unspecified (Acute) Major depressive disorder, recurrent, unspecified (Acute) Tobacco use disorder, severe, dependence (Acute) Cocaine use disorder, severe, dependence (Acute) Cannabis use disorder, severe, dependence (Acute) Alcohol use disorder, severe, dependence (Acute) UTI (urinary tract infection) (Acute) Vomiting (Acute) Alcohol intoxication (Acute) Acute on chronic pancreatitis (Acute) GERD (gastroesophageal reflux disease) (Chronic) Abdominal pain (Acute) Pancreatitis (Chronic) Chronic abdominal pain (Chronic) Chronic alcoholic pancreatitis (Acute) Dilated cbd, acquired (Acute) Constipation (Acute) HTN (hypertension) (Chronic) Hypomagnesemia (Acute) Hypokalemia (Acute) Pancreatic mass (Acute) Chronic anticoagulation (Acute) Alcoholism, chronic (Chronic) Alcoholic gastritis (Acute) Nonadherence to medication (Acute) Common bile duct dilation (Acute) Deep vein thrombosis (DVT) of right upper extremity (Chronic) Medical History Acute UTI Alcohol withdrawal Alcoholism /alcohol abuse ARDS (adult respiratory distress syndrome) Aspiration pneumonia Chronic pain COVID-19 ruled out by laboratory testing Enterocolitis Fever Ground glass opacity present on imaging of lung Hiccups Hx of hyperlipidemia Hypokalemia Hypomagnesemia Insomnia Myocardial infarction x 2 Pancreatitis Pancreatitis, chronic Pneumonia Presence of pancreatic duct stent (~01/2018) Sean Sears Retention of urine Septal myocardial infarction (01/18/20) probably old, M records Surgical History S/P ERCP (~01/2018) Sean Sears Family History Mother Alcohol abuse Father Alcohol abuse Social History Smoking/Tobacco Use Status: Current every day Tobacco Type: cigarettes Smoking packs per day: 1 Smoking cigarettes per day: 20.0 Smoking risk assessment performed?: Yes Alcohol Intake: current Alcohol Intake frequency: 3 or more drinks per day Alcohol type: beer Drug use: Daily Substance use type: marijuana Housing: apartment Do you feel safe at home: Yes Do you feel safe in your relationship?: Yes Exam Const General: cooperative Orientation: alert, awake and oriented x3 Resp Effort & Inspection: normal respiratory effort and able to speak in complete sentences Auscultation: clear to auscultation bilaterally Cardio Rate: regular rate Rhythm: regular rhythm Heart Sounds: S1 normal and S2 normal GI Palpation: soft, not firm, no guarding, no masses, no pulsatile masses, not rigid and tender (to deep palpation) in the epigastrum Auscultation: normal bowel sounds Neuro General: patient alert, patient awake, patient oriented x3, gait normal and moves all extremities Extrem General: normal exam except as noted Left lower extremity: knee Details: tenderness Location: of the medial joint line and of the proximal fibula, swelling and ecchymosis knee medial Details: single Course Vital Signs Vital signs: Vital Signs Temperature 37.0 C 07/28/21 19:12 Pulse 90 07/28/21 19:12 Respiratory Rate 16 07/28/21 19:12 Blood Pressure 186/96 H 07/28/21 19:12 Temperature 37.0 C 07/28/21 19:12 Temperature Source Skin 07/28/21 19:12 Pulse 74 07/28/21 23:33 Respiratory Rate 16 07/28/21 19:12 Respiratory Effort 07/28/21 19:16 Blood Pressure 172/85 H 07/28/21 23:33 Blood Pressure Mean 105 07/28/21 23:33 Pulse Oximetry 97 07/28/21 23:40 Pain Level 10 07/28/21 19:12 Lab/Test Results Lab/Test Results: Laboratory Tests Range/Units 07/28/21 07/28/21 07/28/21 22:00 22:00 22:00 WBC (4.4-10.8) 10^3/uL 4.28 L RBC (4.36-5.78) 10^6/uL 4.78 Hgb (13.5-17.5) g/dL 15.1 Hct (40.0-50.0) % 45.5 MCV (80-95) fL 95 MCH (27.0-33.0) pg 31.6 MCHC (32.0-36.0) % 33.2 RDW (11.8-14.1) % 16.4 H Plt Count (130-400) 10^3/uL 180 MPV (8.0-11.0) fL 9.6 Immature Gran % 0.0 Neutrophils % 61.1 Lymphocytes % 26.6 Monocytes % 11.4 Eosinophils % 0.0 Basophils % 0.9 Nucleated RBC % (0.0-0.3) % 0.0 Absolute Neutrophils (1.2-6.7) 10^3/uL 2.62 Absolute Lymphocytes (1.2-3.4) 10^3/uL 1.14 L Absolute Monocytes (0.1-0.8) 10^3/uL 0.49 Absolute Eosinophils (0.0-0.7) 10^3/uL 0.00 Absolute Basophils (0.0-0.2) 10^3/uL 0.04 Sodium (136-145) mmol/L 136 Potassium (3.5-5.1) mmol/L 3.9 Chloride (98-107) mmol/L 100 Carbon Dioxide (21.0-32.0) mmol/L 24.3 Anion Gap (3-11) mmol/L 11.7 H BUN (7-18) mg/dL 6 L Creatinine (0.70-1.30) mg/dL 0.7 Estimated GFR/1.73 m2 (mL/min/1.73m2) >= 60.00 Glucose (74-106) mg/dL 101 Calcium (8.5-10.1) mg/dL 9.2 Magnesium (1.8-2.4) mg/dL 2.1 Total Bilirubin (0.2-1.0) mg/dL 0.9 AST (15-37) U/L 32 ALT (16-63) U/L 23 Alkaline Phosphatase (46-116) U/L 145 H Total Protein (6.4-8.2) g/dL 8.5 H Albumin (3.4-5.0) g/dL 3.8 Lipase (73-393) U/L 63 Urine Color (Yellow) Urine Clarity (Clear) Urine pH (5-8) Ur Specific [place] (1.005-1.025) Urine Protein (Negative) mg/dL Urine Ketones (Negative) mg/dL Urine Blood (Negative) Urine Nitrite (Negative) Urine Bilirubin (Negative) Urine Urobilinogen (Up TO 0.2) EU/dL Ur Leukocyte Esterase (Negative) Urine Glucose (Negative) mg/dL Ethyl Alcohol (<10) mg/dL < 3.0 Range/Units 07/28/21 23:20 WBC (4.4-10.8) 10^3/uL RBC (4.36-5.78) 10^6/uL Hgb (13.5-17.5) g/dL Hct (40.0-50.0) % MCV (80-95) fL MCH (27.0-33.0) pg MCHC (32.0-36.0) % RDW (11.8-14.1) % Plt Count (130-400) 10^3/uL MPV (8.0-11.0) fL Immature Gran % Neutrophils % Lymphocytes % Monocytes % Eosinophils % Basophils % Nucleated RBC % (0.0-0.3) % Absolute Neutrophils (1.2-6.7) 10^3/uL Absolute Lymphocytes (1.2-3.4) 10^3/uL Absolute Monocytes (0.1-0.8) 10^3/uL Absolute Eosinophils (0.0-0.7) 10^3/uL Absolute Basophils (0.0-0.2) 10^3/uL Sodium (136-145) mmol/L Potassium (3.5-5.1) mmol/L Chloride (98-107) mmol/L Carbon Dioxide (21.0-32.0) mmol/L Anion Gap (3-11) mmol/L BUN (7-18) mg/dL Creatinine (0.70-1.30) mg/dL Estimated GFR/1.73 m2 (mL/min/1.73m2) Glucose (74-106) mg/dL Calcium (8.5-10.1) mg/dL Magnesium (1.8-2.4) mg/dL Total Bilirubin (0.2-1.0) mg/dL AST (15-37) U/L ALT (16-63) U/L Alkaline Phosphatase (46-116) U/L Total Protein (6.4-8.2) g/dL Albumin (3.4-5.0) g/dL Lipase (73-393) U/L Urine Color (Yellow) Yellow Urine Clarity (Clear) Clear Urine pH (5-8) 6.5 Ur Specific [place] (1.005-1.025) 1.020 Urine Protein (Negative) mg/dL Negative Urine Ketones (Negative) mg/dL 40 H Urine Blood (Negative) Negative Urine Nitrite (Negative) Negative Urine Bilirubin (Negative) Negative Urine Urobilinogen (Up TO 0.2) EU/dL 0.2 Ur Leukocyte Esterase (Negative) Negative Urine Glucose (Negative) mg/dL Negative Ethyl Alcohol (<10) mg/dL PAWSS Have you Been Recently Intoxicated or Drunk Within the Last 30 days?: Yes Have you Ever Experienced Previous Episodes of Alcohol Withdrawal?: Yes Have you ever Experienced Withdrawal Seizures?: No Have you ever Experienced Delirium Tremens(DT)s?: No Have you ever undergone Alcohol Rehabilitation Treatment (i.e, inpt ot outpatient treatment programs)?: Yes Have you ever Experienced Blackouts?: Yes Have you ever Combined Alcohol with other Downers within the last 90 days?: No Have you ever Combined Alcohol with any other Substance of Abuse during the last 90 days?: No Positive Blood Alcohol level on Presentation? [PCS.BAL]: No Evidence of Increased Autonomic Activity (i.e. HR>120, tremor, sweating, agitation, nausea)?: No Result: 4
[2021-07-29] MEDS: ACETAMINOPHEN 1,000 MG/100 ML BTL 400 MG IVPB (00:16)
[2021-07-29] MEDS: Ketorolac 30 MG/ML VIAL IVP (00:16)
== END 2021-07-29 00:47 | disposition home or self-care (01) ==
PROVIDERS: Emergency Provider Nurse Practitioner Family; PCP Family Medicine
DX: S82.452A Displaced comminuted fracture of shaft of left fibula, initial encounter for closed fracture (principal); X58.XXXA Exposure to other specified factors, initial encounter; R10.9 Unspecified abdominal pain; G89.29 Other chronic pain; I10 Essential (primary) hypertension
CPT/HCPCS: 80053; 83690; 96361; 96365; 96375; 99285; 73700; 80320; 81003; 83735; 85025; 99284; J0131; J1885